=== PATIENT | male | born 1950 ===

== ENCOUNTER → 2019-11-16 15:05 | Outpatient (BNVA) | payer MEDICARE, SELFPAY | PROVIDERS: PCP Internal Medicine; Visit Provider Internal Medicine | DX: I48.20 Chronic atrial fibrillation, unspecified (principal); Z51.81 Encounter for therapeutic drug level monitoring; Z79.01 Long term (current) use of anticoagulants | CPT/HCPCS: 85610; 99211 ==

== ENCOUNTER → 2019-12-14 14:10 | Outpatient (BNVA) | payer MEDICARE, BC, SELFPAY | PROVIDERS: PCP Internal Medicine; Referring Provider Internal Medicine; Visit Provider Internal Medicine | DX: I48.20 Chronic atrial fibrillation, unspecified (principal); Z51.81 Encounter for therapeutic drug level monitoring; Z79.01 Long term (current) use of anticoagulants | CPT/HCPCS: 85610; 99211 ==

== ENCOUNTER → 2020-01-08 08:10 | Outpatient (BNVA) | payer MEDICARE, BC, SELFPAY | PROVIDERS: PCP Internal Medicine; Visit Provider Internal Medicine | DX: I48.20 Chronic atrial fibrillation, unspecified (principal); Z51.81 Encounter for therapeutic drug level monitoring; Z79.01 Long term (current) use of anticoagulants | CPT/HCPCS: 85610; 99211 ==

== ENCOUNTER → 2020-01-29 13:34 | Outpatient (BNVA) | payer MEDICARE, BC, SELFPAY | PROVIDERS: PCP Internal Medicine; Visit Provider Internal Medicine | DX: I48.20 Chronic atrial fibrillation, unspecified (principal); Z51.81 Encounter for therapeutic drug level monitoring; Z79.01 Long term (current) use of anticoagulants | CPT/HCPCS: 85610; 99211 ==

== ENCOUNTER → 2020-01-31 08:06 | Outpatient (BNVA) | payer MEDICARE, BC, SELFPAY | PROVIDERS: PCP Internal Medicine; Visit Provider Internal Medicine | DX: I48.20 Chronic atrial fibrillation, unspecified (principal); Z79.01 Long term (current) use of anticoagulants; Z51.81 Encounter for therapeutic drug level monitoring | CPT/HCPCS: 85610; 99211 ==

== ENCOUNTER → 2020-03-07 08:23 | Outpatient (BNVA) | payer MEDICARE, BC, SELFPAY | PROVIDERS: PCP Internal Medicine; Visit Provider Internal Medicine | DX: I48.20 Chronic atrial fibrillation, unspecified (principal); Z51.81 Encounter for therapeutic drug level monitoring; Z79.01 Long term (current) use of anticoagulants | CPT/HCPCS: 85610; 99211 ==

== ENCOUNTER → 2020-03-21 08:03 | Outpatient (BNVA) | payer MEDICARE, BC, SELFPAY | PROVIDERS: PCP Internal Medicine; Visit Provider Internal Medicine | DX: I48.20 Chronic atrial fibrillation, unspecified (principal); Z51.81 Encounter for therapeutic drug level monitoring; Z79.01 Long term (current) use of anticoagulants | CPT/HCPCS: 85610; 99211 ==

== ENCOUNTER → 2020-04-04 08:07 | Outpatient (BNVA) | payer MEDICARE, BC, SELFPAY | PROVIDERS: PCP Internal Medicine; Visit Provider Internal Medicine | DX: I48.20 Chronic atrial fibrillation, unspecified (principal); I51.81 Takotsubo syndrome; Z79.01 Long term (current) use of anticoagulants | CPT/HCPCS: 85610; 99211 ==

== ENCOUNTER → 2020-04-24 10:50 | Outpatient (BNVA) | payer MEDICARE, BC, SELFPAY | PROVIDERS: PCP Internal Medicine; Visit Provider Internal Medicine | DX: I48.20 Chronic atrial fibrillation, unspecified (principal); Z51.81 Encounter for therapeutic drug level monitoring; Z79.01 Long term (current) use of anticoagulants | CPT/HCPCS: 85610; 99211 ==

== ENCOUNTER → 2020-05-09 13:42 | Outpatient (BNVA) | payer MEDICARE, BC, SELFPAY | PROVIDERS: PCP Internal Medicine; Visit Provider Internal Medicine | DX: I48.20 Chronic atrial fibrillation, unspecified (principal); Z79.01 Long term (current) use of anticoagulants; Z51.81 Encounter for therapeutic drug level monitoring | CPT/HCPCS: 85610; 99211 ==

== ENCOUNTER → 2020-05-20 11:28 | Outpatient (BNVA) | payer MEDICARE, BC, SELFPAY | PROVIDERS: PCP Internal Medicine; Visit Provider Internal Medicine | DX: Z79.01 Long term (current) use of anticoagulants (principal) | CPT/HCPCS: 85610; 99211 ==

== ENCOUNTER → 2020-06-17 13:04 | Outpatient (BNVA) | payer MEDICARE, BC, SELFPAY | PROVIDERS: PCP Internal Medicine; Visit Provider Internal Medicine | DX: I48.20 Chronic atrial fibrillation, unspecified (principal); Z51.81 Encounter for therapeutic drug level monitoring; Z79.01 Long term (current) use of anticoagulants | CPT/HCPCS: 85610; 99211 ==

== ENCOUNTER → 2020-07-02 13:42 | Outpatient (BNVA) | payer MEDICARE, BC, SELFPAY | PROVIDERS: PCP Internal Medicine; Visit Provider Internal Medicine | DX: I48.20 Chronic atrial fibrillation, unspecified (principal); Z51.81 Encounter for therapeutic drug level monitoring; Z79.01 Long term (current) use of anticoagulants | CPT/HCPCS: 85610; 99211 ==

== ENCOUNTER → 2020-07-16 13:02 | Outpatient (BNVA) | payer MEDICARE, BC, SELFPAY | PROVIDERS: PCP Internal Medicine; Visit Provider Internal Medicine | DX: I48.20 Chronic atrial fibrillation, unspecified (principal); Z51.81 Encounter for therapeutic drug level monitoring; Z79.01 Long term (current) use of anticoagulants | CPT/HCPCS: 85610; 99211 ==

== ENCOUNTER → 2020-07-30 07:59 | Outpatient (BNVA) | payer MEDICARE, BC, SELFPAY | PROVIDERS: PCP Internal Medicine; Visit Provider Internal Medicine | DX: I48.0 Paroxysmal atrial fibrillation (principal); Z51.81 Encounter for therapeutic drug level monitoring; Z79.01 Long term (current) use of anticoagulants | CPT/HCPCS: 85610; 99211 ==

== ENCOUNTER → 2020-08-01 08:21 | Outpatient (BNVA) | payer MEDICARE, BC, SELFPAY | PROVIDERS: PCP Internal Medicine; Visit Provider Internal Medicine | DX: I48.20 Chronic atrial fibrillation, unspecified (principal); Z51.81 Encounter for therapeutic drug level monitoring; Z79.01 Long term (current) use of anticoagulants | CPT/HCPCS: 85610; 99211 ==

== ENCOUNTER → 2020-08-15 16:11 | Outpatient (BNVA) | payer MEDICARE, BC, SELFPAY | PROVIDERS: PCP Internal Medicine; Visit Provider Internal Medicine | DX: I48.20 Chronic atrial fibrillation, unspecified (principal) | CPT/HCPCS: Q3014 ==

== ENCOUNTER → 2020-08-25 08:12 | Outpatient (BNVA) | payer MEDICARE, BC, SELFPAY | PROVIDERS: PCP Internal Medicine; Visit Provider Internal Medicine | DX: I48.20 Chronic atrial fibrillation, unspecified (principal); Z51.81 Encounter for therapeutic drug level monitoring; Z79.01 Long term (current) use of anticoagulants | CPT/HCPCS: 85610; 99211 ==

== ENCOUNTER → 2020-09-09 08:00 | Outpatient (BNVA) | payer MEDICARE, BC, SELFPAY | PROVIDERS: PCP Internal Medicine; Visit Provider Internal Medicine | DX: I48.20 Chronic atrial fibrillation, unspecified (principal); Z51.81 Encounter for therapeutic drug level monitoring; Z79.01 Long term (current) use of anticoagulants | CPT/HCPCS: 85610; 99211 ==

== ENCOUNTER → 2020-10-09 08:11 | Outpatient (BNVA) | payer MEDICARE, BC, SELFPAY | PROVIDERS: PCP Internal Medicine; Visit Provider Internal Medicine | DX: I48.20 Chronic atrial fibrillation, unspecified (principal); Z51.81 Encounter for therapeutic drug level monitoring; Z79.01 Long term (current) use of anticoagulants | CPT/HCPCS: 85610; 99211 ==

== ENCOUNTER → 2020-11-06 07:56 | Outpatient (BNVA) | payer MEDICARE, BC, SELFPAY | PROVIDERS: PCP Internal Medicine; Visit Provider Internal Medicine | DX: I48.20 Chronic atrial fibrillation, unspecified (principal); Z51.81 Encounter for therapeutic drug level monitoring; Z79.01 Long term (current) use of anticoagulants | CPT/HCPCS: 85610; 99211 ==

== ENCOUNTER → 2020-11-24 10:25 | Outpatient (BNVA) | payer MEDICARE, BC, SELFPAY | PROVIDERS: PCP Internal Medicine; Visit Provider Internal Medicine | DX: I48.20 Chronic atrial fibrillation, unspecified (principal); Z51.81 Encounter for therapeutic drug level monitoring; Z79.01 Long term (current) use of anticoagulants | CPT/HCPCS: 85610; 99211 ==

== ENCOUNTER → 2020-12-01 09:47 | Outpatient (BNVA) | payer MEDICARE, BC, SELFPAY | PROVIDERS: PCP Internal Medicine; Visit Provider Internal Medicine | DX: I48.20 Chronic atrial fibrillation, unspecified (principal); Z51.81 Encounter for therapeutic drug level monitoring; Z79.01 Long term (current) use of anticoagulants | CPT/HCPCS: 85610; 99211 ==

== ENCOUNTER → 2020-12-12 10:49 | Outpatient (BNVA) | payer MEDICARE, BC, SELFPAY | PROVIDERS: PCP Internal Medicine; Visit Provider Internal Medicine | DX: I48.20 Chronic atrial fibrillation, unspecified (principal); Z51.81 Encounter for therapeutic drug level monitoring; Z79.01 Long term (current) use of anticoagulants | CPT/HCPCS: 85610; 99211 ==

== ENCOUNTER → 2020-12-31 11:29 | Outpatient (BNVA) | payer MEDICARE, BC, SELFPAY | PROVIDERS: PCP Internal Medicine; Visit Provider Internal Medicine | DX: I48.20 Chronic atrial fibrillation, unspecified (principal); Z51.81 Encounter for therapeutic drug level monitoring; Z79.01 Long term (current) use of anticoagulants | CPT/HCPCS: 85610; 99211 ==

== ENCOUNTER → 2021-01-28 10:58 | Outpatient (BNVA) | payer MEDICARE, BC, SELFPAY | PROVIDERS: PCP Internal Medicine; Visit Provider Internal Medicine | DX: I48.20 Chronic atrial fibrillation, unspecified (principal); Z51.81 Encounter for therapeutic drug level monitoring; Z79.01 Long term (current) use of anticoagulants | CPT/HCPCS: 85610; 99211 ==

== ENCOUNTER 2021-03-06 09:34 | Outpatient (REF) | payer MEDICARE, BC, SELFPAY ==
[2021-03-06 09:49] LABS: Binax Internal Control QC Valid; Binax Now Covid-19 Ag Positive (Negative)
== END 2021-03-06 09:35 | disposition home or self-care (01) ==
LOC: HO.LAB 09:34
PROVIDERS: PCP Internal Medicine; Visit Provider Internal Medicine
DX: Z20.822 Contact with and (suspected) exposure to COVID-19 (principal)
CPT/HCPCS: C9803

== ENCOUNTER 2021-03-11 10:07 | Outpatient (REF) | payer MEDICARE, BC, SELFPAY ==
[2021-03-11 10:30] LABS: COVID-19 Test Positive (Negative)
== END 2021-03-11 10:08 | disposition home or self-care (01) ==
LOC: HO.LAB 10:07
PROVIDERS: Visit Provider Internal Medicine
DX: Z20.822 Contact with and (suspected) exposure to COVID-19 (principal)
CPT/HCPCS: 87635; C9803

== ENCOUNTER 2021-03-12 10:03 | Outpatient (REF) | payer MEDICARE, BC, SELFPAY ==
[2021-03-12 10:15] LABS: COVID-19 Test Positive (Negative)
== END 2021-03-12 10:04 | disposition home or self-care (01) ==
LOC: HO.LAB 10:03
PROVIDERS: PCP Internal Medicine; Visit Provider Internal Medicine
DX: Z20.822 Contact with and (suspected) exposure to COVID-19 (principal)
CPT/HCPCS: 87635; C9803

== ENCOUNTER 2021-03-16 07:34 | Outpatient (REF) | payer MEDICARE, BC, SELFPAY ==
[2021-03-16 08:04] LABS: COVID-19 Test Negative (Negative)
== END 2021-03-16 07:35 | disposition home or self-care (01) ==
LOC: HO.LAB 07:34
PROVIDERS: Visit Provider Internal Medicine
DX: Z20.822 Contact with and (suspected) exposure to COVID-19 (principal)
CPT/HCPCS: 87635; C9803

== ENCOUNTER → 2021-03-25 11:30 | Outpatient (BNVA) | payer MEDICARE, BC, SELFPAY | PROVIDERS: PCP Internal Medicine; Visit Provider Internal Medicine | DX: I48.20 Chronic atrial fibrillation, unspecified (principal); Z51.81 Encounter for therapeutic drug level monitoring; Z79.01 Long term (current) use of anticoagulants | CPT/HCPCS: 85610; 99211 ==

== ENCOUNTER 2021-03-26 08:28 | Outpatient (REF) | payer MEDICARE, BC, SELFPAY ==
[2021-03-26 09:49] LABS: Hematocrit 40.4 % (42.0-52.0); Hemoglobin 13.3 g/dl (14.0-18.0); Mean Corpuscular HGB Conc 32.9 g/dl (31.0-36.0); Mean Corpuscular Hemoglobin 31.8 pg (27.0-33.0); Mean Corpuscular Volume 96.7 fL (80.0-98.0); Platelet Count 210 X10*3/uL (160-400); Red Blood Count 4.18 X10*6/uL (4.60-5.80); Red Cell Distribution Width 12.8 % (11.0-16.0); White Blood Count 6.3 X10*3/uL (4.8-10.8)
[2021-03-26 09:53] LABS: INTERNATIONAL NORM RATIO 2.9 (0.9-1.1); Prothrombin Time 33.3 SEC (9.9-13.0)
[2021-03-26 10:13] LABS: Appearance Urine CLEAR; Color Urine YELLOW; Glucose Urine UA NEG (NEG); Leukocyte Esterase Urine NEG (NEG); Nitrite Urine NEG (NEG); PH 5.5 (5.0-8.0); Specific Gravity - Urine >= 1.030 (1.005-1.025); Urine Blood NEG (NEG); Urine Ketones NEG (NEG); Urine Protein NEG (NEG-TRACE)
[2021-03-26 10:16] LABS: Alanine Aminotransferase 11 U/L (0-40); Albumin Level 3.7 g/dL (3.5-5.0); Alkaline Phosphatase 66 U/L (39-117); Anion Gap 11 (12-20); Aspartate Amino Transferase 19 U/L (5-37); Bilirubin Direct 0.3 mg/dL (0.0-0.5); Bilirubin Total 0.6 mg/dL (0.0-1.0); Blood Urea Nitrogen 22 mg/dL (9-16); Calcium 9.2 mg/dL (8.4-10.2); Carbon Dioxide 28 mmol/L (22-29); Chloride 104 mmol/L (96-108); Cholesterol 147 mg/dL; Estimated Glomerular Filt Rate > 60; Glucose Random 94 mg/dL (60-115); HDL Cholesterol 36 mg/dL; LDL Cholesterol Calculated 78 mg/dl; Potassium 4.6 mmol/L (3.3-5.1); Sodium 138 mmol/L (135-145); Total Protein 6.6 g/dL (6.5-8.0); Triglycerides 168 mg/dL
[2021-03-26 10:42] LABS: Thyroid Stimulating Hormone 0.66 uIU/mL (0.32-4.0)
[2021-03-31 12:12] LABS: Vitamin D 25-OH, D2 <4 ng/mL; Vitamin D 25-OH, D3 49 ng/mL; Vitamin D 25-OH, Total 49 ng/mL (30-100)
== END 2021-03-26 08:29 | disposition home or self-care (01) ==
LOC: HO.LAB 08:28
PROVIDERS: PCP Internal Medicine; Visit Provider Internal Medicine
DX: I48.20 Chronic atrial fibrillation, unspecified (principal); I50.9 Heart failure, unspecified
CPT/HCPCS: 36415; 80048; 80061; 80076; 81003; 82306; 84443; 85027; 85610

== ENCOUNTER → 2021-04-22 10:44 | Outpatient (BNVA) | payer MEDICARE, BC, SELFPAY | PROVIDERS: PCP Internal Medicine; Visit Provider Internal Medicine | DX: I48.20 Chronic atrial fibrillation, unspecified (principal); Z79.01 Long term (current) use of anticoagulants; Z51.81 Encounter for therapeutic drug level monitoring | CPT/HCPCS: 85610; 99211 ==

== ENCOUNTER → 2021-05-20 10:53 | Outpatient (BNVA) | payer MEDICARE, BC, SELFPAY | PROVIDERS: PCP Internal Medicine; Visit Provider Internal Medicine | DX: I48.20 Chronic atrial fibrillation, unspecified (principal); Z79.01 Long term (current) use of anticoagulants; Z51.81 Encounter for therapeutic drug level monitoring | CPT/HCPCS: 85610; 99211 ==

== ENCOUNTER → 2021-06-17 10:32 | Outpatient (BNVA) | payer MEDICARE, BC, SELFPAY | PROVIDERS: PCP Internal Medicine; Visit Provider Internal Medicine | DX: I48.20 Chronic atrial fibrillation, unspecified (principal); Z79.01 Long term (current) use of anticoagulants; Z51.81 Encounter for therapeutic drug level monitoring | CPT/HCPCS: 85610; 99211 ==

== ENCOUNTER → 2021-07-15 10:44 | Outpatient (BNVA) | payer MEDICARE, BC, SELFPAY | PROVIDERS: PCP Internal Medicine; Visit Provider Internal Medicine | DX: I48.20 Chronic atrial fibrillation, unspecified (principal); Z79.01 Long term (current) use of anticoagulants; Z51.81 Encounter for therapeutic drug level monitoring | CPT/HCPCS: 85610; 99211 ==

== ENCOUNTER → 2021-09-09 10:38 | Outpatient (BNVA) | payer MEDICARE, BC, SELFPAY | PROVIDERS: PCP Internal Medicine; Visit Provider Internal Medicine | DX: I48.20 Chronic atrial fibrillation, unspecified (principal); Z79.01 Long term (current) use of anticoagulants; Z51.81 Encounter for therapeutic drug level monitoring | CPT/HCPCS: 85610; 99211 ==

== ENCOUNTER → 2021-09-23 11:11 | Outpatient (BNVA) | payer MEDICARE, BC, SELFPAY | PROVIDERS: PCP Internal Medicine; Visit Provider Internal Medicine | DX: I48.20 Chronic atrial fibrillation, unspecified (principal); Z79.01 Long term (current) use of anticoagulants; Z51.81 Encounter for therapeutic drug level monitoring | CPT/HCPCS: 85610; 99211 ==

== ENCOUNTER → 2021-10-08 07:57 | Outpatient (BNVA) | payer MEDICARE, BC, SELFPAY | PROVIDERS: PCP Internal Medicine; Visit Provider Internal Medicine | DX: I48.20 Chronic atrial fibrillation, unspecified (principal); Z79.01 Long term (current) use of anticoagulants; Z51.81 Encounter for therapeutic drug level monitoring | CPT/HCPCS: 85610; 99211 ==

== ENCOUNTER → 2021-11-05 10:38 | Outpatient (BNVA) | payer MEDICARE, BC, SELFPAY | PROVIDERS: PCP Internal Medicine; Visit Provider Internal Medicine | DX: I48.20 Chronic atrial fibrillation, unspecified (principal); Z79.01 Long term (current) use of anticoagulants; Z51.81 Encounter for therapeutic drug level monitoring | CPT/HCPCS: 85610; 99211 ==

== ENCOUNTER → 2021-12-03 10:48 | Outpatient (BNVA) | payer MEDICARE, BC, SELFPAY | PROVIDERS: PCP Internal Medicine; Visit Provider Internal Medicine | DX: I48.20 Chronic atrial fibrillation, unspecified (principal); Z79.01 Long term (current) use of anticoagulants; Z51.81 Encounter for therapeutic drug level monitoring | CPT/HCPCS: 85610; 99211 ==

== ENCOUNTER → 2021-12-10 11:05 | Outpatient (BNVA) | payer MEDICARE, BC, SELFPAY | PROVIDERS: PCP Internal Medicine; Visit Provider Internal Medicine | DX: I48.20 Chronic atrial fibrillation, unspecified (principal); Z79.01 Long term (current) use of anticoagulants; Z51.81 Encounter for therapeutic drug level monitoring | CPT/HCPCS: 85610; 99211 ==

== ENCOUNTER → 2022-01-28 12:57 | Outpatient (BNVA) | payer MEDICARE, BC, SELFPAY | PROVIDERS: PCP Internal Medicine; Visit Provider Internal Medicine | DX: I48.20 Chronic atrial fibrillation, unspecified (principal); Z79.01 Long term (current) use of anticoagulants; Z51.81 Encounter for therapeutic drug level monitoring | CPT/HCPCS: 85610; 99211 ==

== ENCOUNTER → 2022-02-02 11:08 | Outpatient (BNVA) | payer MEDICARE, BC, SELFPAY | PROVIDERS: PCP Internal Medicine; Visit Provider Internal Medicine | DX: I48.20 Chronic atrial fibrillation, unspecified (principal); Z79.01 Long term (current) use of anticoagulants; Z51.81 Encounter for therapeutic drug level monitoring | CPT/HCPCS: 85610; 99211 ==

== ENCOUNTER → 2022-02-10 08:42 | Outpatient (BNVA) | payer MEDICARE, BC, SELFPAY | PROVIDERS: PCP Internal Medicine; Visit Provider Internal Medicine | DX: I48.20 Chronic atrial fibrillation, unspecified (principal); Z79.01 Long term (current) use of anticoagulants; Z51.81 Encounter for therapeutic drug level monitoring | CPT/HCPCS: 85610; 99211 ==

== ENCOUNTER → 2022-03-12 11:11 | Outpatient (BNVA) | payer MEDICARE, BC, SELFPAY | PROVIDERS: PCP Internal Medicine; Visit Provider Internal Medicine | DX: I48.20 Chronic atrial fibrillation, unspecified (principal); Z79.01 Long term (current) use of anticoagulants; Z51.81 Encounter for therapeutic drug level monitoring | CPT/HCPCS: 85610; 99211 ==

== ENCOUNTER → 2022-04-09 08:05 | Outpatient (BNVA) | payer MEDICARE, BC, SELFPAY | PROVIDERS: PCP Internal Medicine; Visit Provider Internal Medicine | DX: I48.20 Chronic atrial fibrillation, unspecified (principal); Z79.01 Long term (current) use of anticoagulants; Z51.81 Encounter for therapeutic drug level monitoring | CPT/HCPCS: 85610; 99211 ==

== ENCOUNTER → 2022-05-14 07:58 | Outpatient (BNVA) | payer MEDICARE, BC, SELFPAY | PROVIDERS: PCP Internal Medicine; Visit Provider Internal Medicine | DX: I48.20 Chronic atrial fibrillation, unspecified (principal); Z79.01 Long term (current) use of anticoagulants; Z51.81 Encounter for therapeutic drug level monitoring | CPT/HCPCS: 85610; 99211 ==

== ENCOUNTER → 2022-06-11 07:57 | Outpatient (BNVA) | payer MEDICARE, BC, SELFPAY | PROVIDERS: PCP Internal Medicine; Visit Provider Internal Medicine | DX: I48.20 Chronic atrial fibrillation, unspecified (principal); Z79.01 Long term (current) use of anticoagulants; Z51.81 Encounter for therapeutic drug level monitoring | CPT/HCPCS: 85610; 99211 ==

== ENCOUNTER → 2022-06-25 08:22 | Outpatient (BNVA) | payer MEDICARE, BC, SELFPAY | PROVIDERS: PCP Internal Medicine; Visit Provider Internal Medicine | DX: I48.20 Chronic atrial fibrillation, unspecified (principal); Z79.01 Long term (current) use of anticoagulants; Z51.81 Encounter for therapeutic drug level monitoring | CPT/HCPCS: 85610; 99211 ==

== ENCOUNTER → 2022-07-30 08:02 | Outpatient (BNVA) | payer MEDICARE, BC, SELFPAY | PROVIDERS: PCP Internal Medicine; Visit Provider Internal Medicine | DX: I48.20 Chronic atrial fibrillation, unspecified (principal); Z79.01 Long term (current) use of anticoagulants; Z51.81 Encounter for therapeutic drug level monitoring | CPT/HCPCS: 85610; 99211 ==

== ENCOUNTER 2022-09-03 08:03 | Outpatient (AMB) | payer MEDICARE, BC, SELFPAY ==
[2022-09-03 08:10] LABS: Prothrombin Time Whole Bld POC 25.3 sec (11.1-13.5); ~PT, ~INR - Anti Coag Clinic 2.1 (0.9-1.1)
--- NOTE | 2022-09-03 08:11 | MHC.OFFVISCO ---
Intake Intake Visit Reasons: Anticoagulation Allergies penicillamine Adverse Reaction (Unknown, Verified 09/03/22 08:06) nausea,vomiting Medication List - Last Reconciled 09/03/22 by Nasima Cade RN carvedilol 50 mg PO BID digoxin 125 mcg PO BEDTIME furosemide 10 mg PO DAILY spironolactone 25 mg PO DAILY warfarin 5 mg See Protocol PO DAILY Nursing Note Amb to ACS feeling well after 3 week vacation with family to [facility] Medications and supplements reviewed No changes in health, diet, medications, or supplements Denies any unusual signs and symptoms of bruising, bleeding Denies any new Chest pain, SOB, or clotting INR: 2.1 in therapeutic range Nutritional guidance given: balance greens and reds in diet, no heavy duty greens today Dose: continue usual dosing; 2.5mg x 1 day and 5mg x 6 days F/U INR: 4 weeks Patient verbalizes understanding of instructions given with accurate read back/ teach back of dosing Anti-Coag Initial Assessment Social Hx Patient Tobacco Use Status: Never used Tobacco alcohol intake: never Coding Level of Care Code Est Patient Level 1 Diagnoses Current use of anticoagulant therapy Z79.01 Time Spent (min) 15 Assessment & Plan Assessment & Plan (1) Current use of anticoagulant therapy: Code(s): Z79.01 - longterm (current) use of 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
== END 2022-09-03 08:16 | disposition home or self-care (01) ==
LOC: HO.ACS 08:03
PROVIDERS: PCP Internal Medicine; Visit Provider Internal Medicine
DX: Z79.01 Long term (current) use of anticoagulants (principal)

== ENCOUNTER → 2022-09-03 08:03 | Outpatient (BNVA) | payer MEDICARE, BC, SELFPAY | PROVIDERS: PCP Internal Medicine; Visit Provider Internal Medicine | DX: I48.20 Chronic atrial fibrillation, unspecified (principal); Z79.01 Long term (current) use of anticoagulants; Z51.81 Encounter for therapeutic drug level monitoring | CPT/HCPCS: 85610; 99211 ==

== ENCOUNTER 2022-09-20 07:49 | Outpatient (REF) | payer MEDICARE, BC, SELFPAY ==
[2022-09-20 08:17] LABS: MANUAL DIFF FLAG NO
[2022-09-20 08:54] LABS: Basophils Percent Auto 0.8 % (0-2); Eosinophils Absolute Auto 0.1 X10*3/uL (0.0-0.4); Eosinophils Percent Auto 1.6 % (0-4); Hematocrit 42.4 % (42.0-52.0); Imm Gran Abs Auto 0.02 X10*3/uL (0.00-0.03); Imm Gran Pct Auto 0.4 % (0.0-0.4); Lymphocytes Absolute Auto 1.4 X10*3/uL (1.2-4.9); Lymphocytes Percent Auto 27.9 % (20-40); Mean Corpuscular Hemoglobin 31.2 pg (27.0-33.0); Mean Corpuscular Volume 94.4 fL (80.0-98.0); Mean Platelet Volume 9.7 fL (9.4-12.4); Monocytes Absolute Auto 0.4 X10*3/uL (0.1-1.2); Monocytes Percent Auto 7.1 % (2-11); Neutrophils Absolute Auto 3.1 x10*3/uL (2.0-8.3); Neutrophils Percent Auto 62.2 % (45-73); Platelet Count 193 X10*3/uL (160-400); Red Blood Count 4.49 X10*6/uL (4.60-5.80); Red Cell Distribution Width 13.5 % (11.0-16.0); White Blood Count 5.1 X10*3/uL (4.8-10.8)
[2022-09-20 10:34] LABS: Anion Gap 10 (12-20); Blood Urea Nitrogen 18 mg/dL (9-16); Calcium 9.3 mg/dL (8.4-10.2); Carbon Dioxide 27 mmol/L (22-29); Chloride 105 mmol/L (96-108); Estimated Glomerular Filt Rate > 60; Ferritin 247 ng/mL (20-250); Glucose Random 105 mg/dL (60-115); Iron 113 mcg/dL (45-160); Percent Iron Saturation 54 % (15-50); Potassium 4.2 mmol/L (3.3-5.1); Sodium 138 mmol/L (135-145); Total Iron Binding Capacity 211 mcg/dL (228-428); Unsaturated Iron Binding 98 ug/dL
[2022-09-20 10:44] LABS: Digoxin 1.2 ng/mL (0.8-2.0)
[2022-09-23 15:19] LABS: NT-proBNP 1296 pg/mL (<125)
== END 2022-09-20 07:50 | disposition home or self-care (01) ==
LOC: HO.LAB 07:49
PROVIDERS: Absent Provider Internal Medicine; PCP Internal Medicine; Visit Provider Nurse Practitioner
DX: I48.19 Other persistent atrial fibrillation (principal); I50.22 Chronic systolic (congestive) heart failure; Z79.899 Other long term (current) drug therapy
CPT/HCPCS: 36415; 80048; 80162; 82728; 83540; 83880; 85025

== ENCOUNTER 2022-09-23 08:45 | Outpatient (AMB) | payer MEDICARE, BC, SELFPAY ==
--- NOTE | 2022-09-23 08:53 | MHC.PC.OV ---
Vital Signs 09/23/22 08:54 Height 6 ft 4 in Weight 203 lb BMI 24.7 BP 120/72 Blood Pressure Location Lt brachial Position Sitting Pulse 70 Pulse Source Pulse Oximeter Pulse Oximetry (%) 98 Oxygen Delivery Method Room Air Intake Visit Reasons: Follow Up Intake Note: Patient is here to follow up on CHF, A-fib. 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: Not Required per policy Accompanied by: Self / Same As Patient Allergies penicillamine Adverse Reaction (Unknown, Verified 09/23/22 09:22) nausea,vomiting Medication List - Last Reconciled 09/23/22 by Eduardo Rutledge MD carvedilol 50 mg PO BID digoxin 125 mcg PO BEDTIME furosemide 10 mg PO DAILY spironolactone 25 mg PO DAILY warfarin 5 mg See Protocol PO DAILY Tobacco use date assessed: 09/23/22 Fall risk assessment: No Falls in past year Last assessed Fall Risk: 09/23/22 Dental Screening Dental Screen Date: 09/23/22 Did you have a dental visit in the last 12 months?: Yes Did you have a dental problem in the last 6 months where you did not have access to dental care?: No Was dental information given to patient?: Patient has dentist HPI Follow Up HPI Details 72-year-old male presents to the office to discuss his chronic medical conditions. Patient has chronic AFib and sees a information services manager in [place]. He is compliant with medications and reports no side effects. Able to function and do all activities of daily living. [facility] Medical History Chronic a-fib Congestive heart failure Surgical History History of permanent cardiac pacemaker placement Family History Mother No problems noted. Father No problems noted. Social History Housing: House Alcohol intake: never Patient Tobacco Use Status: Never used Tobacco e-Cigarette/Vaping Use: Never Used Second Hand Smoke Exposure: No service: No Current occupational status: retired Cognitive needs: No Hearing needs: No Vision needs: Yes (glasses) Questionnaire Thrive Questionnaire Date Thrive assessed: 09/23/22 I am a: Patient What is your living situation today?: I have a steady place to live Within the past 12 months, did the food you bought not last and you didn't have the money to get more?: Never true Within the past 12 months, did you worry whether your food would run out before you got money to buy more?: Never true Do you have trouble paying for medicines?: No Do you have trouble getting transportation to medical appointments?: No Do you have trouble paying your heating and electricity bill?: No Do you have trouble taking care of your child, family member or friend?: No Do you have trouble with day-to-day activities such as bathing, preparing meals, shopping, managing finances, etc.?: No Are you currently unemployed and looking for a job?: No Are you interested in more education?: No Currently or been in a relationship where the following occur: no concerns reported AUDIT C Alcohol Use Questionnaire (AUDIT-C) 1. How often do you have a drink containing alcohol?: Never Total Score: 0 TRISTIN-7 AMB Questionnaire TRISTIN-7 Date TRISTIN - 7 assessed: 09/23/22 Feeling nervous, anxious, or on edge: 0 = Not at all Not being able to stop or control worryin = Not at all Worrying too much about different things: 0 = Not at all Trouble relaxin = Not at all Being so restless that it is hard to sit still: 0 = Not at all Becoming easily annoyed or irritable: 0 = Not at all Feeling afraid as if something awful might happen: 0 = Not at all Total TRISTIN-7 score (0-4 normal; 5-9 mild; 10-14 moderate; 15-21 severe): 0 Source: Developed by Drs. Maninder Coker, Ashley Hernandez, Orlando Costello and colleagues, with an educational nicolette from [employer]. Physical exam (Primary Care) Vital Signs: Last Vital Signs Pulse 70 09/23/22 08:54 BP 120/72 09/23/22 08:54 Pulse Ox 98 09/23/22 08:54 Oxygen Delivery Method Room Air 09/23/22 08:54 BMI result Body Mass Index 24.7 Tobacco/Smoking Status: Tobacco use Status Tobacco use date assessed 09/23/22 09/23/22 08:56 Patient Tobacco Use Status Never used Tobacco 09/23/22 08:56 e-Cigarette/Vaping Use Never Used 09/23/22 08:56 Thrive Assessment: Date of Thrive Assessment Date Thrive assessed 09/23/22 09/23/22 08:56 Currently or been in a relationship where the following occur: no concerns reported Advance Care Planning discussion: Exists, not on file Date of discussion: 09/23/22 Forms completed: Health Care Proxy Time spent: 1-15 minutes, not on file Actual minutes spent: 5 Const General: cooperative, healthy appearing and comfortable HENMT Head: Yes normal to inspection and Yes atraumatic Eyes General: appearance normal, both eyes and all related structures Neck Neck: Yes normal visual inspection and Yes full ROM Chest Chest palpation & inspection: normal inspection of the chest Resp Effort & Inspection: normal respiratory effort Auscultation: clear to auscultation bilaterally Cardio Jugular venous distension: no JVD Palpation: normal PMI Rate: regular rate Heart sounds: S1 normal heart sound present and S2 normal heart sound present GI Palpation (GI): Soft to palpation and No hepatosplenomegaly present Extrem General: Yes normal to inspection and Yes full ROM Assessment and Plan Assessment & Plan (1) Congestive heart failure: Code(s): I50.9 - Heart failure, unspecified Plan: Condition is stable. Blood work reviewed. Digoxin level is in range. (2) Chronic a-fib: Code(s): I48.20 - Chronic atrial fibrillation, unspecified Plan: Patient's heart rate is stable. 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 Patient would like to get a Cologuard test done. The same has been ordered. Coding Level of Care Code Est Pt Level 4 (10060) Diagnoses Congestive heart failure I50.9 Chronic a-fib I48.20 Current use of anticoagulant therapy Z79.01 Additional Codes Vital Signs *Quality* - Advance Care Planning discussion: Exists, not on file ([id number]) Vital Signs *Quality* - Time spent: 1-15 minutes, not on file ([id number])
[2022-09-23 08:54] VITALS: BP 120/72; PULSE 70; O2SAT 98; BMI 24.7
== END 2022-09-23 09:53 | disposition home or self-care (01) ==
PROVIDERS: Visit Provider Internal Medicine
DX: I50.9 Heart failure, unspecified (principal); I48.20 Chronic atrial fibrillation, unspecified; Z79.01 Long term (current) use of anticoagulants; Z00.00 Encounter for general adult medical examination without abnormal findings
CPT/HCPCS: 1123F; 1124F; 99214

== ENCOUNTER 2022-10-01 08:03 | Outpatient (AMB) | payer MEDICARE, SELFPAY ==
--- NOTE | 2022-10-01 08:14 | MHC.OFFVISCO ---
Intake Intake Visit Reasons: Anticoagulation Allergies penicillamine Adverse Reaction (Unknown, Verified 10/01/22 08:05) nausea,vomiting Medication List - Last Reconciled 10/01/22 by Yulissa Cates RN carvedilol 50 mg PO BID digoxin 125 mcg PO BEDTIME furosemide 10 mg PO DAILY spironolactone 25 mg PO DAILY warfarin 5 mg See Protocol PO DAILY Nursing Note INR 1.7? out of therapeutic range Medications and supplements reviewed Patient status: PT WAS ON VACATION IN [place] DIET CHANGES AND WALKING MORE Medications or supplements: NO CHANGES Diet: GOOD APPETITE Denies any signs and symptoms of bleeding or clotting or unusual bruising Bleeding, bruising, clotting discussed Nutritional guidance given: AVOID GREENS X 3 DAYS - EAT FOODS TO HELP RAISE THE INR Dose: 7.5MG TODAY THEN RESUME USUAL DOSE 2.5MG X 1 DAY/ 5MG X 6 DAYS F/U INR Date : 2 WEEKS ?? Patient verbalizing understanding of instructions given. 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
[2022-10-01 08:20] LABS: ~PT, ~INR - Anti Coag Clinic 1.7 (0.9-1.1)
== END 2022-10-01 08:19 | disposition home or self-care (01) ==
LOC: HO.ACS 08:03
PROVIDERS: PCP Internal Medicine; Visit Provider Internal Medicine
DX: Z79.01 Long term (current) use of anticoagulants (principal)

== ENCOUNTER → 2022-10-01 08:03 | Outpatient (BNVA) | payer MEDICARE, BC, SELFPAY | PROVIDERS: PCP Internal Medicine; Visit Provider Internal Medicine | DX: I48.20 Chronic atrial fibrillation, unspecified (principal); Z79.01 Long term (current) use of anticoagulants; Z51.81 Encounter for therapeutic drug level monitoring | CPT/HCPCS: 85610; 99211 ==

== ENCOUNTER 2022-10-15 08:19 | Outpatient (AMB) | payer MEDICARE, SELFPAY ==
[2022-10-15 08:26] LABS: Prothrombin Time Whole Bld POC 23.9 sec (11.1-13.5)
--- NOTE | 2022-10-15 08:28 | MHC.OFFVISCO ---
Intake Intake Visit Reasons: Anticoagulation Allergies penicillamine Adverse Reaction (Unknown, Verified 10/15/22 08:20) nausea,vomiting Medication List - Last Reconciled 10/15/22 by Nasima Cade RN carvedilol 50 mg PO BID digoxin 125 mcg PO BEDTIME furosemide 10 mg PO DAILY spironolactone 25 mg PO DAILY warfarin 5 mg See Protocol PO DAILY Nursing Note Amb to ACS feeling well, prev INR 1.7, sts he has been having a lot of pasta with red sauce, reviewed tomato sauces act as a green Medications and supplements reviewed No changes in health, diet, medications, or supplements Denies any unusual signs and symptoms of bruising, bleeding Denies any new Chest pain, SOB, or clotting INR: 2.0 just in therapeutic range Nutritional guidance given: balance greens and reds in diet, food list given and reviewed Dose: continue usual dosing;2.5mg x 1 day and 5mg x 6 days F/U INR: 4 weeks Patient verbalizes understanding of instructions given with accurate read back/ teach back of dosing Anti-Coag Initial Assessment Social Hx Patient Tobacco Use Status: Never used Tobacco alcohol intake: never Coding Level of Care Code Est Patient Level 1 Diagnoses Current use of anticoagulant therapy Z79.01 Time Spent (min) 15 Assessment & Plan Assessment & Plan (1) Current use of anticoagulant therapy: 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
== END 2022-10-15 09:47 | disposition home or self-care (01) ==
LOC: HO.ACS 08:19
PROVIDERS: PCP Internal Medicine; Visit Provider Internal Medicine
DX: Z79.01 Long term (current) use of anticoagulants (principal)

== ENCOUNTER → 2022-10-15 08:19 | Outpatient (BNVA) | payer MEDICARE, BC, SELFPAY | PROVIDERS: PCP Internal Medicine; Visit Provider Internal Medicine | DX: I48.20 Chronic atrial fibrillation, unspecified (principal); Z79.01 Long term (current) use of anticoagulants; Z51.81 Encounter for therapeutic drug level monitoring | CPT/HCPCS: 85610; 99211 ==

== ENCOUNTER 2022-11-05 08:08 | Outpatient (AMB) | payer MEDICARE, SELFPAY ==
[2022-11-05 08:21] LABS: ~PT, ~INR - Anti Coag Clinic 1.4 (0.9-1.1)
--- NOTE | 2022-11-05 08:27 | MHC.OFFVISCO ---
Intake Intake Visit Reasons: Anticoagulation Allergies penicillamine Adverse Reaction (Unknown, Verified 11/05/22 08:15) nausea,vomiting Medication List - Last Reconciled 11/05/22 by Nasima Cade RN carvedilol 50 mg PO BID digoxin 125 mcg PO BEDTIME furosemide 10 mg PO DAILY spironolactone 25 mg PO DAILY warfarin 5 mg See Protocol PO DAILY Nursing Note Amb to ACS feeling ok wearing facial mask our grandchildren have colds, I feel one coming on Medications and supplements reviewed No changes in health, diet, medications, or supplements Denies any unusual signs and symptoms of bruising, bleeding Denies any new Chest pain, SOB, or clotting INR: 1.4 critical low, denies any missed doses, sts uses a pill box, possibly diet?? Nutritional guidance given: sts he has been having pasta with red sauce (as was last visit) reminded pt that although the spaghetti sauce is red it acts as a green, concentrated cooked tomatoes lower INR vs fresh yurok tomatoes eaten raw raise INR Oh I forgot food list reviewed and given. Stressed importance of balance but for the next 3 days nothing from the green column and have red fruits to help raise such as watermelon, strawberries, cranberries and veggies like sugar beets and carrots Dose: increase dose today to 7.5mg, take usual 5 mg tomorrow, then increase Tuesday to 5mg and plan to keep daily dose of 5mg F/U INR: 1 week as earliest could come in Patient verbalizes understanding of instructions given with accurate read back/ teach back of dosing Call to PCP office Dr Cavanaugh- critical INR 1.4, no missed doses per pt, dosing plan and follow up reported to Shanta GALEANA Anti-Coag Initial Assessment Social Hx Patient Tobacco Use Status: Never used Tobacco alcohol intake: never Coding Level of Care Code Est Patient Level 2 Diagnoses Current use of anticoagulant therapy Z79.01 Time Spent (min) 30 Assessment & Plan Assessment & Plan (1) Current use of anticoagulant therapy: 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
== END 2022-11-05 12:59 | disposition home or self-care (01) ==
LOC: HO.ACS 08:08
PROVIDERS: PCP Internal Medicine; Visit Provider Internal Medicine
DX: Z79.01 Long term (current) use of anticoagulants (principal)

== ENCOUNTER → 2022-11-05 08:08 | Outpatient (BNVA) | payer MEDICARE, BC, SELFPAY | PROVIDERS: PCP Internal Medicine; Visit Provider Internal Medicine | DX: I48.20 Chronic atrial fibrillation, unspecified (principal); Z79.01 Long term (current) use of anticoagulants; Z51.81 Encounter for therapeutic drug level monitoring | CPT/HCPCS: 85610; 99212 ==

== ENCOUNTER 2022-11-12 09:06 | Outpatient (AMB) | payer MEDICARE, SELFPAY ==
--- NOTE | 2022-11-12 09:26 | MHC.OFFVISCO ---
Intake Intake Visit Reasons: Anticoagulation Allergies penicillamine Adverse Reaction (Unknown, Verified 11/12/22 09:10) nausea,vomiting Medication List - Last Reconciled 11/12/22 by Yulissa Cates RN carvedilol 50 mg PO BID digoxin 125 mcg PO BEDTIME furosemide 10 mg PO DAILY spironolactone 25 mg PO DAILY warfarin 5 mg See Protocol PO DAILY Nursing Note INR 1.5 out of therapeutic range Medications and supplements reviewed Patient status: PT EXERCISING MORE AND HAS LOSS WEIGHT INTENTIALY 15 LBS NOW- MAY CONTRIBUTE TO LOW INR, ALSO STATED HE HAS RECOVERED FROM A COLD -LAST WEEK, SIMILAR TO COVID/FLU SYMPTOMS MAY CONTRIBUTE TO LOW INR IF COVID , Medications or supplements: NO CHANGES Diet: GOOD APPETITE Denies any signs and symptoms of bleeding or clotting or unusual bruising Bleeding, bruising, clotting discussed Nutritional guidance given: AVOID GREENS X 3 DAYS, EAT ORANGE AND RED TO HELP RAISE THE INR Dose: 7.5MG X 2 DAYS (FRI SAT) 5MG ALL OTHER DAYS. F/U INR Date : CHECK INR 5 DAYS TO SEE IF DOSE INCREASES RAISES THE INR ?? PT INTRUCTED TO GO TO ER WITH ANY S/SX OF CLOTTING OR STROKE Patient verbalizing understanding of instructions given. 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
== END 2022-11-12 09:37 | disposition home or self-care (01) ==
LOC: HO.ACS 09:06
PROVIDERS: PCP Internal Medicine; Visit Provider Internal Medicine
DX: Z79.01 Long term (current) use of anticoagulants (principal)

== ENCOUNTER → 2022-11-12 09:06 | Outpatient (BNVA) | payer MEDICARE, SELFPAY | PROVIDERS: PCP Internal Medicine; Visit Provider Internal Medicine | DX: I48.20 Chronic atrial fibrillation, unspecified (principal); Z79.01 Long term (current) use of anticoagulants; Z51.81 Encounter for therapeutic drug level monitoring | CPT/HCPCS: 85610; 99211 ==

== ENCOUNTER 2022-11-24 09:22 | Outpatient (AMB) | payer MEDICARE, SELFPAY ==
--- NOTE | 2022-11-24 09:26 | MHC.OFFVISCO ---
Intake Intake Visit Reasons: Anticoagulation Allergies penicillamine Adverse Reaction (Unknown, Verified 11/24/22 09:22) nausea,vomiting Medication List - Last Reconciled 11/24/22 by Zarina Mcguire RN carvedilol 50 mg PO BID digoxin 125 mcg PO BEDTIME furosemide 10 mg PO DAILY spironolactone 25 mg PO DAILY warfarin 5 mg See Protocol PO DAILY Nursing Note INR: 2.1- in therapeutic range Medications and supplements reviewed- no changes No changes in health, diet, medications, or supplements, Denies any signs and symptoms of bleeding or bruising or clotting. Bleeding, bruising, clotting discussed Nutritional guidance given Dose: 5mg x 5, 7.5mg x 2 F/U INR: 2 weeks Patient verbalizes understanding of instructions given Anti-Coag Initial Assessment Social Hx Patient Tobacco Use Status: Never used Tobacco alcohol intake: never Coding Level of Care Code Est Patient Level 1 Diagnoses Current use of anticoagulant therapy Z79.01 Results AMB INR Fingerstick AMB INR Fingerstick 2.1 Last Edit by Zarina Mcguire RN on 11/24/22 09:27 Assessment & Plan Assessment & Plan (1) Current use of anticoagulant therapy: Code(s): Z79.01 - [facility] (current) use of 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
[2022-11-24 09:28] LABS: ~PT, ~INR - Anti Coag Clinic 2.1 (0.9-1.1)
== END 2022-11-24 09:34 | disposition home or self-care (01) ==
LOC: HO.ACS 09:22
PROVIDERS: PCP Internal Medicine; Visit Provider Internal Medicine
DX: Z79.01 Long term (current) use of anticoagulants (principal)

== ENCOUNTER → 2022-11-24 09:22 | Outpatient (BNVA) | payer MEDICARE, SELFPAY | PROVIDERS: PCP Internal Medicine; Visit Provider Internal Medicine | DX: I48.20 Chronic atrial fibrillation, unspecified (principal); Z79.01 Long term (current) use of anticoagulants; Z51.81 Encounter for therapeutic drug level monitoring | CPT/HCPCS: 85610; 99211 ==

== ENCOUNTER 2022-12-08 09:16 | Outpatient (AMB) | payer MEDICARE, SELFPAY ==
[2022-12-08 09:22] LABS: Prothrombin Time Whole Bld POC 31.1 sec (11.1-13.5); ~PT, ~INR - Anti Coag Clinic 2.6 (0.9-1.1)
--- NOTE | 2022-12-08 09:27 | MHC.OFFVISCO ---
Intake Intake Visit Reasons: Anticoagulation Allergies penicillamine Adverse Reaction (Unknown, Verified 12/08/22 09:18) nausea,vomiting Medication List - Last Reconciled 12/08/22 by Angelica Brown RN carvedilol 50 mg PO BID digoxin 125 mcg PO BEDTIME furosemide 10 mg PO DAILY spironolactone 25 mg PO DAILY warfarin 5 mg See Protocol PO DAILY Nursing Note NO CP,SOB,DIET/MED CHANGES,FALLS OR SX OF BLEEDING. CONTINUE PRESENT DOSE AND FOLLOW-UP IN 4 WEEKS. GOOD UNDERSTANDING OF DOSING INSTR. 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
== END 2022-12-08 09:30 | disposition home or self-care (01) ==
LOC: HO.ACS 09:16
PROVIDERS: PCP Internal Medicine; Visit Provider Internal Medicine
DX: Z79.01 Long term (current) use of anticoagulants (principal)

== ENCOUNTER → 2022-12-08 09:16 | Outpatient (BNVA) | payer MEDICARE, BC, SELFPAY | PROVIDERS: PCP Internal Medicine; Visit Provider Internal Medicine | DX: I48.20 Chronic atrial fibrillation, unspecified (principal); Z79.01 Long term (current) use of anticoagulants; Z51.81 Encounter for therapeutic drug level monitoring | CPT/HCPCS: 85610; 99211 ==

== ENCOUNTER 2023-01-07 13:38 | Outpatient (AMB) | payer MEDICARE, SELFPAY ==
[2023-01-07 13:48] LABS: Prothrombin Time Whole Bld POC 30.5 sec (11.1-13.5); ~PT, ~INR - Anti Coag Clinic 2.5 (0.9-1.1)
--- NOTE | 2023-01-07 13:53 | MHC.OFFVISCO ---
Intake Intake Visit Reasons: Anticoagulation Allergies penicillamine Adverse Reaction (Unknown, Verified 12/08/22 09:18) nausea,vomiting Nursing Note INR: 2.5 in therapeutic range Has a rediual cough from a prevoius cold - no edema just a cough Medications and supplements reviewed No changes in health, diet, medications, or supplements, Denies any signs and symptoms of bleeding or bruising or clotting. Bleeding, bruising, clotting discussed Nutritional guidance given Dose: 7.5MG X 2 DAYS/ 5MG X 5DAYS F/U INR: 4 WEEKS patient verbalizes understanding of instructions given Anti-Coag Initial Assessment Social Hx Patient Tobacco Use Status: Never used Tobacco alcohol intake: never Coding Level of Care Code Est Patient Level 1 Diagnoses Current use of anticoagulant therapy Z79.01 Assessment & Plan Assessment & Plan (1) Current use of anticoagulant therapy: Code(s): Z79.01 - retirement (current) use of 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
== END 2023-01-07 13:55 | disposition home or self-care (01) ==
LOC: HO.ACS 13:38
PROVIDERS: PCP Internal Medicine; Visit Provider Internal Medicine
DX: Z79.01 Long term (current) use of anticoagulants (principal)

== ENCOUNTER → 2023-01-07 13:38 | Outpatient (BNVA) | payer MEDICARE, BC, SELFPAY | PROVIDERS: PCP Internal Medicine; Visit Provider Internal Medicine | DX: I48.20 Chronic atrial fibrillation, unspecified (principal); Z79.01 Long term (current) use of anticoagulants; Z51.81 Encounter for therapeutic drug level monitoring | CPT/HCPCS: 85610; 99211 ==

== ENCOUNTER 2023-02-04 14:32 | Outpatient (AMB) | payer MEDICARE, SELFPAY ==
[2023-02-04 14:41] LABS: Prothrombin Time Whole Bld POC 24.6 sec (11.1-13.5)
--- NOTE | 2023-02-04 14:49 | MHC.OFFVISCO ---
Intake Intake Visit Reasons: Anticoagulation Allergies penicillamine Adverse Reaction (Unknown, Verified 02/04/23 14:36) nausea,vomiting Medication List - Last Reconciled 02/04/23 by Angelica Brown RN carvedilol 50 mg PO BID digoxin 125 mcg PO BEDTIME furosemide 10 mg PO DAILY spironolactone 25 mg PO DAILY warfarin 5 mg See Protocol PO DAILY Nursing Note NO CP,SOB,DIET/MED CHANGES,FALLS OR SX OF BLEEDING. CONTINUE PRESENT DOSE AND FOLLOW0-UP IN 4 WEEKS. GOOD UNDERSTANDING OF DOSING INSTR. Anti-Coag Initial Assessment Social Hx Patient Tobacco Use Status: Never used Tobacco alcohol intake: never Coding Level of Care Code Est Patient Level 1 Diagnoses Current use of anticoagulant therapy Z79.01 Assessment & Plan Assessment & Plan (1) Current use of anticoagulant therapy: Code(s): Z79.01 - correction (current) use of 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
== END 2023-02-04 14:51 | disposition home or self-care (01) ==
LOC: HO.ACS 14:32
PROVIDERS: PCP Internal Medicine; Visit Provider Internal Medicine
DX: Z79.01 Long term (current) use of anticoagulants (principal)

== ENCOUNTER → 2023-02-04 14:32 | Outpatient (BNVA) | payer MEDICARE, BC, SELFPAY | PROVIDERS: PCP Internal Medicine; Visit Provider Internal Medicine | DX: I48.20 Chronic atrial fibrillation, unspecified (principal); Z51.81 Encounter for therapeutic drug level monitoring; Z79.01 Long term (current) use of anticoagulants | CPT/HCPCS: 85610; 99211 ==

== ENCOUNTER 2023-03-10 15:08 | Outpatient (AMB) | payer MEDICARE, BC, SELFPAY ==
--- NOTE | 2023-03-10 15:28 | A.OFFVIS_ITS ---
Intake Vital Signs 03/10/23 15:31 Height 6 ft 4 in Weight 201 lb 8 oz BMI 24.5 BP 110/66 Blood Pressure Location Rt brachial Position Sitting Pulse 71 Pulse Source Pulse Oximeter Pulse Oximetry (%) 98 Oxygen Delivery Method Room Air Intake Visit Reasons: AWV Intake Note: Patient is here for an Annual Wellness Visit. 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 [facility] Medical History Congestive heart failure Chronic a-fib Surgical History History of permanent cardiac pacemaker placement Family History Mother No problems noted. Father No problems noted. Social History Housing: House Alcohol intake: never Patient Tobacco Use Status: Never used Tobacco e-Cigarette/Vaping Use: Never Used Second Hand Smoke Exposure: No service: No Current occupational status: retired Cognitive needs: No Hearing needs: No Vision needs: Yes (glasses) Questionnaire Medicare Wellness Checkup [age] What gender do you identify with?: male During the past 4 weeks, how much have you been bothered by emotional problems such as feeling anxious, depressed, irritable, sad or downhearted, and blue?: not at all During the past 4 weeks, has your physical & emotional health limited your so cial activities with family, friends, neighbors, or groups?: not at all During the past 4 weeks, how much bodily pain have you generally had?: no pain During the past 4 weeks, was someone available to help you if you needed & wanted help?: yes, as much as I wanted During the past 4 weeks, what was the hardest physical activity you could do for at least 2 minutes?: moderate Can you get to places out of walking distance without help? (For eg., can you travel alone on buses, taxis or drive your car?): Yes Can you go shopping for groceries or clothes without someone's help?: Yes Can you prepare your own meals?: Yes Can you do your housework without help?: Yes Because of any health problems, do you need the help of another person with your personal care needs such as eating, bathing, dressing or getting around the house?: No Can you handle your own money without help?: Yes During the past 4 weeks, how would you rate your health in general?: very good During the past 4 weeks how have things been going for you?: very well; could hardly better Are you having difficulties driving your car?: no Do you always fasten your seat belt when you are in a car?: yes, usually During past 4 weeks, have you been bothered by the following: never: Falling or dizzy when standing up, Sexual problems?, Trouble eating well?, Teeth or denture problems?, Problems using the telephone? and Tiredness or fatigue? Have you fallen 2 or more times in the past year?: No Are you afraid of falling?: No Are you a smoker?: no During the past 4 weeks, how many drinks of wine, beer, or other alcoholic beverages did you have?: no alcohol at all Do you exercise for about 20 minutes 3 or more times a week?: yes, all the time Have you been given information to help with the following?: no: Hazards in your house that might hurt you? and no: Keeping track of your medications? How often do you have trouble taking medicines the way you have been told to take them?: I always take medicine as prescribed How confident are you that you can control & manage most of your health problems?: very confident What is your race?: White Mini Mental State Exam (MMSE) Orientation What is the (year) (season) (date) (day) (month)?: year, season, date, day and month Where are we (state) (county) (town or city) (hospital) (floor)?: state and hospital/clinic Attention & Calculation (CHOOSE ONE) Ask pt to begin with 100 & count backward by 7. Stop after 5 repeats. If pt cannot ask them to spell the word WORLD backward.: 93, 86 and 79 Language Show patient a wristwatch & ask what it is. Repeat for pencil.: watch and pencil Ask the patient to repeat the phrase 'No ifs, ands, or buts' after you.: correct Score Score: 13 Activity of Daily Living Bathing - sponge bath, tub bath or shower: receives no assistance (gets in/out by self, if usual bathing means Dressing - getting clothes from closets & drawers, including inner/outer garments & fasteners.: gets clothes & gets completely dressed without help Toileting - going to the 'toilet room' for urine/bowel elimination & cleaning self/arranging clothes: goes to toilet room, cleans self, arranges clothes without help Transfer: moves in & out of bed and chair without help (may use support object) Continence: controls urination/bowel movements completely by self Feeding: feeds self without help Total Score: 0 Information obtained from: patient Using telephone: independent Traveling: independent Shopping: independent Preparing meals: independent Housework: independent Taking medicine: independent Managing money: independent PHQ-9 Over the last 2 weeks, how often have you been bothered by any of the following problems? 1. Little interest or pleasure in doing things: not at all 2. Feeling down, depressed, or hopeless: not at all 3. Trouble falling or staying asleep, or sleeping too much: not at all 4. Feeling tired or having little energy: not at all 5. Poor appetite or overeating: not at all 6. Feeling bad about yourself - or that you are a failure or have let yourself or your family down: not at all 7. Trouble concentrating on things, such as reading the newspaper or watching television: not at all 8. Moving or speaking so slowly that other people could have noticed. Or the opposite - being so fidgety or restless that you have been moving around a lot more than usual: not at all 9. Thoughts that you would be better off or of hurting yourself in some way: not at all Total score: 0 Depression Screening Interpretation: Negative Depression Screening Done: Yes Source: Developed by Ashley Best.W. David, Orlando Costello and colleagues, with an educational nicolette from [employer]. Thrive Questionnaire Date Thrive assessed: 03/10/23 I am a: Patient What is your living situation today?: I have a steady place to live Within the past 12 months, did the food you bought not last and you didn't have the money to get more?: Never true Within the past 12 months, did you worry whether your food would run out before you got money to buy more?: Never true Do you have trouble paying for medicines?: No Do you have trouble getting transportation to medical appointments?: No Do you have trouble paying your heating and electricity bill?: No Do you have trouble taking care of your child, family member or friend?: No Do you have trouble with day-to-day activities such as bathing, preparing meals, shopping, managing finances, etc.?: No Are you currently unemployed and looking for a job?: No Are you interested in more education?: No THRIVE Score: 0 TRISTIN-7 AMB Questionnaire TRISTIN-7 Date TRISTIN - 7 assessed: 03/10/23 Feeling nervous, anxious, or on edge: 0 = Not at all Not being able to stop or control worryin = Not at all Worrying too much about different things: 0 = Not at all Trouble relaxin = Not at all Being so restless that it is hard to sit still: 0 = Not at all Becoming easily annoyed or irritable: 0 = Not at all Feeling afraid as if something awful might happen: 0 = Not at all Total TRISTIN-7 score (0-4 normal; 5-9 mild; 10-14 moderate; 15-21 severe): 0 Source: Developed by Drs. Maninder Coker, Ashley Hernandez, Orlando Costello and colleagues, with an educational nicolette from [employer]. AUDIT C Alcohol Use Questionnaire (AUDIT-C) 1. How often do you have a drink containing alcohol?: Never Total Score: 0 Physical Exam Vital Signs: Last Vital Signs Pulse 71 03/10/23 15:31 BP 110/66 03/10/23 15:31 Pulse Ox 98 03/10/23 15:31 Oxygen Delivery Method Room Air 03/10/23 15:31 BMI result Body Mass Index 24.5 Balance: Normal Romberg: Negative Tandem Walk: Able to Walk and Turn: Able to Rise from sit to stand: able to Hearing Whisper test: Pass Assessment & Plan Assessment & Plan (1) Annual physical exam: Code(s): Z00.00 - Encounter for general adult medical examination without abnormal findings Plan: Patient requested a dermatology referral. Same will be made. Fasting chol levels to be checked Medications: Refilled warfarin 5 mg See Protocol PO DAILY 90 tabs 1RF Quality Reporting (2019) Depression/Bipolar (159/160/161/177) PHQ-9: Total score: 0 Coding Level of Care Code Medicare First (G0438) Diagnoses Annual physical exam Z00.00
[2023-03-10 15:31] VITALS: BP 110/66; PULSE 71; O2SAT 98; BMI 24.5
== END 2023-03-10 16:03 | disposition home or self-care (01) ==
PROVIDERS: PCP Internal Medicine; Visit Provider Internal Medicine
DX: Z00.00 Encounter for general adult medical examination without abnormal findings (principal); I48.20 Chronic atrial fibrillation, unspecified; I50.9 Heart failure, unspecified
CPT/HCPCS: G0438; G0439

== ENCOUNTER 2023-03-11 14:54 | Outpatient (AMB) | payer BC, MEDICARE, SELFPAY ==
[2023-03-11 15:16] LABS: ~PT, ~INR - Anti Coag Clinic 1.9 (0.9-1.1)
--- NOTE | 2023-03-11 15:16 | MHC.OFFVISCO ---
Intake Intake Visit Reasons: Anticoagulation Allergies penicillamine Adverse Reaction (Unknown, Verified 03/11/23 15:04) nausea,vomiting Medication List - Last Reconciled 03/11/23 by Nasima Nava RN carvedilol 50 mg PO BID digoxin 125 mcg PO BEDTIME warfarin 5 mg See Protocol PO DAILY Nursing Note INR: 1.9 Close to therapeutic range Pt states has increased his exercise since home from vacation. Medications and supplements reviewed No changes in health, diet, medications, or supplements, Denies any signs and symptoms of bleeding or bruising or clotting. Bleeding, bruising, clotting discussed Nutritional guidance given Dose: continue same dosing but increase food to help raise INR. Review food list. F/U INR: 2 weeks. 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
== END 2023-03-11 15:25 | disposition home or self-care (01) ==
LOC: HO.ACS 14:54
PROVIDERS: PCP Internal Medicine; Visit Provider Internal Medicine
DX: Z79.01 Long term (current) use of anticoagulants (principal)

== ENCOUNTER → 2023-03-11 14:54 | Outpatient (BNVA) | payer MEDICARE, BC, SELFPAY | PROVIDERS: PCP Internal Medicine; Visit Provider Internal Medicine | DX: I48.20 Chronic atrial fibrillation, unspecified (principal); Z51.81 Encounter for therapeutic drug level monitoring; Z79.01 Long term (current) use of anticoagulants | CPT/HCPCS: 85610; 99211 ==

== ENCOUNTER 2023-03-15 08:53 | Outpatient (REF) | payer MEDICARE, BC, SELFPAY ==
[2023-03-15 10:33] LABS: Hematocrit 41.8 % (42.0-52.0); Hemoglobin 14.1 g/dl (14.0-18.0); Mean Corpuscular HGB Conc 33.7 g/dl (31.0-36.0); Mean Corpuscular Hemoglobin 31.5 pg (27.0-33.0); Mean Corpuscular Volume 93.5 fL (80.0-98.0); Mean Platelet Volume 9.8 fL (9.4-12.4); Platelet Count 208 X10*3/uL (160-400); Red Blood Count 4.47 X10*6/uL (4.60-5.80); Red Cell Distribution Width 13.2 % (11.0-16.0); White Blood Count 4.5 X10*3/uL (4.8-10.8)
[2023-03-15 10:59] LABS: Appearance Urine Clear; Color Urine Yellow; Glucose Urine UA Negative (Negative); Leukocyte Esterase Urine Negative (Negative); Nitrite Urine Negative (Negative); PH 6.5 (5.0-9.0); Urine Blood Negative (Negative); Urine Ketones Negative (Negative); Urine Protein Negative (Neg-Trace)
[2023-03-15 11:32] LABS: Alanine Aminotransferase 16 U/L (0-40); Albumin Level 3.8 g/dL (3.5-5.0); Alkaline Phosphatase 75 U/L (39-117); Anion Gap 10 (12-20); Aspartate Amino Transferase 20 U/L (5-37); Bilirubin Direct 0.3 mg/dL (0.0-0.5); Bilirubin Total 0.8 mg/dL (0.0-1.0); Blood Urea Nitrogen 19 mg/dL (9-16); Calcium 8.9 mg/dL (8.4-10.2); Carbon Dioxide 27 mmol/L (22-29); Chloride 105 mmol/L (96-108); Cholesterol 165 mg/dL (<200); Estimated Glomerular Filt Rate > 60; Glucose Random 106 mg/dL (60-115); HDL Cholesterol 42 mg/dL (>40); LDL Cholesterol Calculated 109 mg/dL (<100); Potassium 4.3 mmol/L (3.3-5.1); Sodium 138 mmol/L (135-145); Total Protein 6.9 g/dL (6.5-8.0); Triglycerides 73 mg/dL (<150)
[2023-03-15 11:49] LABS: Thyroid Stimulating Hormone 1.02 uIU/mL (0.32-4.0)
== END 2023-03-15 08:54 | disposition home or self-care (01) ==
LOC: HO.LAB 08:53
PROVIDERS: PCP Internal Medicine; Visit Provider Internal Medicine
DX: I50.9 Heart failure, unspecified (principal); I48.20 Chronic atrial fibrillation, unspecified
CPT/HCPCS: 36415; 80048; 80061; 80076; 81003; 84443; 85027

== ENCOUNTER 2023-03-25 07:59 | Outpatient (AMB) | payer BC, MEDICARE, SELFPAY ==
[2023-03-25 08:08] LABS: Prothrombin Time Whole Bld POC 20.9 sec (11.1-13.5); ~PT, ~INR - Anti Coag Clinic 1.7 (0.9-1.1)
--- NOTE | 2023-03-25 08:14 | MHC.OFFVISCO ---
Intake Intake Visit Reasons: Anticoagulation Allergies penicillamine Adverse Reaction (Unknown, Verified 03/25/23 08:03) nausea,vomiting Medication List - Last Reconciled 03/25/23 by Yulissa Cates RN carvedilol 50 mg PO BID digoxin 125 mcg PO BEDTIME warfarin 5 mg See Protocol PO DAILY Nursing Note INR: 1.7 out of therapeutic range Medications and supplements reviewed Pt states no changes in health, diet, medications, or supplements, perhaps exercising more Denies any signs and symptoms of bleeding or bruising or clotting. Bleeding, bruising, clotting discussed Nutritional guidance given - avoid greens 2 more days Dose: increase to 7.5mg x 3 days/ 5mg x 4 days F/U INR: []Patient verbalizes understanding of instructions given Anti-Coag Initial Assessment Social Hx Patient Tobacco Use Status: Never used Tobacco alcohol intake: never Coding Level of Care Code Est Patient Level 1 Diagnoses Current use of anticoagulant therapy Z79.01 Results AMB INR Fingerstick AMB INR Fingerstick 1.7 Last Edit by Yulissa Cates RN on 03/25/23 08:10 manual entry Assessment & Plan Assessment & Plan (1) Current use of anticoagulant therapy: 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
== END 2023-03-25 08:16 | disposition home or self-care (01) ==
LOC: HO.ACS 07:59
PROVIDERS: PCP Internal Medicine; Visit Provider Internal Medicine
DX: Z79.01 Long term (current) use of anticoagulants (principal)

== ENCOUNTER → 2023-03-25 07:59 | Outpatient (BNVA) | payer MEDICARE, BC, SELFPAY | PROVIDERS: PCP Internal Medicine; Visit Provider Internal Medicine | DX: I48.20 Chronic atrial fibrillation, unspecified (principal); Z51.81 Encounter for therapeutic drug level monitoring; Z79.01 Long term (current) use of anticoagulants | CPT/HCPCS: 85610; 99211 ==

== ENCOUNTER 2023-04-04 08:12 | Outpatient (AMB) | payer MEDICARE, BC, SELFPAY ==
[2023-04-04 08:18] LABS: Prothrombin Time Whole Bld POC 44.7 sec (11.1-13.5); ~PT, ~INR - Anti Coag Clinic 3.7 (0.9-1.1)
--- NOTE | 2023-04-04 08:28 | MHC.OFFVISCO ---
Intake Intake Visit Reasons: Anticoagulation Allergies penicillamine Adverse Reaction (Unknown, Verified 04/04/23 08:12) nausea,vomiting Medication List - Last Reconciled 04/04/23 by Nasima Nava RN carvedilol 50 mg PO BID digoxin 125 mcg PO BEDTIME warfarin 5 mg See Protocol PO DAILY Nursing Note INR 3.7?? out of therapeutic range OF 2-3 Pt stateshe had increased his red foods significantly because he was low, 1.9 and 1.7 the past 2 weeks. Question low D/T increased exeercise. Medications and supplements reviewed Patient status: feels well Medications or supplements or diet: no changes Denies any signs and symptoms of bleeding or clotting or unusual bruising Bleeding, bruising, clotting discussed Nutritional guidance given: Greens only today and tomorrow, no reds. then balance greens and reds Dose: continue same of 7.5mg X3days and 5mg X4days F/U INR Date : 10 days?? Patient verbalizing understanding of instructions given. 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
== END 2023-04-04 08:33 | disposition home or self-care (01) ==
LOC: HO.ACS 08:12
PROVIDERS: PCP Internal Medicine; Visit Provider Internal Medicine
DX: Z79.01 Long term (current) use of anticoagulants (principal)

== ENCOUNTER → 2023-04-04 08:12 | Outpatient (BNVA) | payer MEDICARE, BC, SELFPAY | PROVIDERS: PCP Internal Medicine; Visit Provider Internal Medicine | DX: I48.20 Chronic atrial fibrillation, unspecified (principal); Z79.01 Long term (current) use of anticoagulants; Z51.81 Encounter for therapeutic drug level monitoring | CPT/HCPCS: 85610; 99211 ==

== ENCOUNTER 2023-04-15 08:15 | Outpatient (AMB) | payer MEDICARE, BC, SELFPAY ==
--- NOTE | 2023-04-15 08:34 | MHC.OFFVISCO ---
Intake Intake Visit Reasons: Anticoagulation Allergies penicillamine Adverse Reaction (Unknown, Verified 04/15/23 08:16) nausea,vomiting Medication List - Last Reconciled 04/15/23 by Yulissa Cates RN carvedilol 50 mg PO BID digoxin 125 mcg PO BEDTIME warfarin 5 mg See Protocol PO DAILY Nursing Note INR: 4.7 out of therapeutic range Medications and supplements reviewed- no changes labile INR challenge to determine cause, he was walking more, eating healthier and a little less, he stated today his has been ill for about 3 weeks with a cough, perhaps he was fighting the virus or had it with out real symptoms - some viruses can lower the INR Denies any signs and symptoms of bleeding or bruising or clotting. Bleeding, bruising, clotting discussed Nutritional guidance given- review food list weekly, resume weekly greens , eat a mix of fruits and vegetables Dose: hold today's dose then decrease back to usual dose 7.5mg x 2 days/ 5mg x 5 days F/U INR:1 week risk of bleeding explained to pt Patient verbalizes understanding of instructions given Anti-Coag Initial Assessment Social Hx Patient Tobacco Use Status: Never used Tobacco alcohol intake: never Coding Level of Care Code Est Patient Level 1 Diagnoses Current use of anticoagulant therapy Z79.01 Results AMB INR Fingerstick AMB INR Fingerstick 4.7 Last Edit by Yulissa Cates RN on 04/15/23 08:24 manual entry Assessment & Plan Assessment & Plan (1) Current use of anticoagulant therapy: 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
[2023-04-15 11:14] LABS: Prothrombin Time Whole Bld POC 56.8 sec (11.1-13.5); ~PT, ~INR - Anti Coag Clinic 4.7 (0.9-1.1)
== END 2023-04-15 08:38 | disposition home or self-care (01) ==
LOC: HO.ACS 08:15
PROVIDERS: PCP Internal Medicine; Visit Provider Internal Medicine
DX: Z79.01 Long term (current) use of anticoagulants (principal)

== ENCOUNTER → 2023-04-15 08:15 | Outpatient (BNVA) | payer MEDICARE, BC, SELFPAY | PROVIDERS: PCP Internal Medicine; Visit Provider Internal Medicine | DX: I48.20 Chronic atrial fibrillation, unspecified (principal); Z79.01 Long term (current) use of anticoagulants; Z51.81 Encounter for therapeutic drug level monitoring | CPT/HCPCS: 85610; 99211 ==

== ENCOUNTER 2023-04-22 08:18 | Outpatient (AMB) | payer MEDICARE, BC, SELFPAY ==
--- NOTE | 2023-04-22 08:29 | MHC.OFFVISCO ---
Intake Intake Visit Reasons: Anticoagulation Allergies penicillamine Adverse Reaction (Unknown, Verified 04/22/23 08:25) nausea,vomiting Medication List - Last Reconciled 04/22/23 by Zarina Mcguire RN carvedilol 50 mg PO BID digoxin 125 mcg PO BEDTIME warfarin 5 mg See Protocol PO DAILY Nursing Note INR 3.5-?? out of therapeutic range of 2-3 Medications and supplements reviewed Patient status: no c.o Medications or supplements: no changes Diet: same Denies any signs and symptoms of bleeding or clotting or unusual bruising Bleeding, bruising, clotting discussed Nutritional guidance given: eat dark greens to lower Dose: take 2.5mg today then cont 7.5mg x 2, 5mg x 5 F/U INR Date : 10 days Patient verbalizing understanding of instructions given. 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
[2023-04-22 08:30] LABS: Prothrombin Time Whole Bld POC 42.1 sec (11.1-13.5); ~PT, ~INR - Anti Coag Clinic 3.5 (0.9-1.1)
== END 2023-04-22 08:34 | disposition home or self-care (01) ==
LOC: HO.ACS 08:18
PROVIDERS: PCP Internal Medicine; Visit Provider Internal Medicine
DX: Z79.01 Long term (current) use of anticoagulants (principal)

== ENCOUNTER → 2023-04-22 08:18 | Outpatient (BNVA) | payer MEDICARE, BC, SELFPAY | PROVIDERS: PCP Internal Medicine; Visit Provider Internal Medicine | DX: I48.20 Chronic atrial fibrillation, unspecified (principal); Z79.01 Long term (current) use of anticoagulants; Z51.81 Encounter for therapeutic drug level monitoring | CPT/HCPCS: 85610; 99211 ==

== ENCOUNTER 2023-05-02 08:32 | Outpatient (AMB) | payer MEDICARE, BC, SELFPAY ==
[2023-05-02 08:59] LABS: Prothrombin Time Whole Bld POC 49.6 sec (11.1-13.5); ~PT, ~INR - Anti Coag Clinic 4.1 (0.9-1.1)
--- NOTE | 2023-05-02 09:06 | MHC.OFFVISCO ---
Intake Intake Visit Reasons: Anticoagulation Allergies penicillamine Adverse Reaction (Unknown, Verified 05/02/23 08:53) nausea,vomiting Medication List - Last Reconciled 05/02/23 by Yulissa Cates RN carvedilol 50 mg PO BID digoxin 125 mcg PO BEDTIME warfarin 5 mg See Protocol PO DAILY Nursing Note INR 4.1 out of therapeutic range Medications and supplements reviewed- states no changes Patient status: INR values have been labile, currently has a cold - sinus with congestion and cough Medications or supplements:no changes Diet: states appetite is good , no changes Denies any signs and symptoms of bleeding or clotting or unusual bruising Bleeding, bruising, clotting discussed Nutritional guidance given: review food list weekly Dose: hold today's dose then decrease weekly dose next week 5mg x 6 days/ 7.5mg x 1 day F/U INR Date : 10 days ?? Patient verbalizing understanding of instructions given. will notify PCP of labile INRs to assess patient and other labs Anti-Coag Initial Assessment Social Hx Patient Tobacco Use Status: Never used Tobacco alcohol intake: never Questionnaires HAS-BLED Does the patient had uncontrolled Hypertension?: No Does the patient have renal disease?: No Does the patient have liver disease?: No Does the patient have a history of stroke?: No Has the patient had major bleeding or predisposition to bleeding?: No Does the patient have labile INRs?: Yes Is the patient over 65 years of age?: Yes Is the patient on medications that gives them a predisposition to bleeding?: Yes Does the patient use alcohol?: No HAS-BLED Score: 3 CHADSVASC Age: 75 or over Gender: Male Does the patient have a history of CHF?: Yes Does the patient have a history of Hypertension?: Yes Does the patient have a history of Stroke/TIA/Thromboembolism?: No Does the patient have a history of Vascular Disease (prior VA, PAD or aortic plaque)?: Yes Does the patient have a history of Diabetes?: No CHADS VACS Score: 5 Jamey Prediction Score Rsk VTE Active Cancer: No Previous VTE, excluding superficial vein thrombosis: No Reduced mobility: No Already known Thrombophilic Condition: No With-in last month Trauma and/or Surgery: No Elderly 70 year or older: Yes Heart and/or Respiratory Failure: Yes Acute Myocardial infarction and/or Ischemic Stroke: Yes Acute Infection and/or Rheumatologic Disorder: No Obesity (BMI 30 or greater): No Ongoing Hormonal Treatment: No Score: 3 Jamey Score less than 4; Low Risk of VTE Jamey Score 4 or greater; High Risk of VTE Coding Level of Care Code Est Patient Level 1 Diagnoses Current use of anticoagulant therapy Z79.01 Assessment & Plan Assessment & Plan (1) Current use of anticoagulant therapy: 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
== END 2023-05-02 09:15 | disposition home or self-care (01) ==
LOC: HO.ACS 08:32
PROVIDERS: PCP Internal Medicine; Visit Provider Internal Medicine
DX: Z79.01 Long term (current) use of anticoagulants (principal)

== ENCOUNTER → 2023-05-02 08:32 | Outpatient (BNVA) | payer MEDICARE, BC, SELFPAY | PROVIDERS: PCP Internal Medicine; Visit Provider Internal Medicine | DX: I48.20 Chronic atrial fibrillation, unspecified (principal); Z79.01 Long term (current) use of anticoagulants; Z51.81 Encounter for therapeutic drug level monitoring | CPT/HCPCS: 85610; 99211 ==

== ENCOUNTER 2023-05-13 08:19 | Outpatient (AMB) | payer MEDICARE, BC, SELFPAY ==
--- NOTE | 2023-05-13 08:26 | MHC.OFFVISCO ---
Intake Intake Visit Reasons: Anticoagulation Allergies penicillamine Adverse Reaction (Unknown, Verified 05/13/23 08:21) nausea,vomiting Medication List - Last Reconciled 05/13/23 by Zarina Mcguire RN carvedilol 50 mg PO BID digoxin 125 mcg PO BEDTIME warfarin 5 mg See Protocol PO DAILY Nursing Note INR 3.1-?? out of therapeutic range of 2-3 Medications and supplements reviewed Patient status: no c.o Medications or supplements: no changes Diet: same Denies any signs and symptoms of bleeding or clotting or unusual bruising Bleeding, bruising, clotting discussed Nutritional guidance given: eat greens today, increase greens in weekly diet Dose: 5mg x 6, 7.5mg x 1 F/U INR Date : 2 weeks?? Patient verbalizing understanding of instructions given. 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
[2023-05-13 08:27] LABS: Prothrombin Time Whole Bld POC 37.7 sec (11.1-13.5); ~PT, ~INR - Anti Coag Clinic 3.1 (0.9-1.1)
== END 2023-05-13 08:31 | disposition home or self-care (01) ==
LOC: HO.ACS 08:19
PROVIDERS: PCP Internal Medicine; Visit Provider Internal Medicine
DX: Z79.01 Long term (current) use of anticoagulants (principal)

== ENCOUNTER → 2023-05-13 08:19 | Outpatient (BNVA) | payer MEDICARE, BC, SELFPAY | PROVIDERS: PCP Internal Medicine; Visit Provider Internal Medicine | DX: I48.20 Chronic atrial fibrillation, unspecified (principal); Z79.01 Long term (current) use of anticoagulants; Z51.81 Encounter for therapeutic drug level monitoring | CPT/HCPCS: 85610; 99211 ==

== ENCOUNTER 2023-05-27 08:16 | Outpatient (AMB) | payer MEDICARE, BC, SELFPAY ==
[2023-05-27 08:33] LABS: Prothrombin Time Whole Bld POC 38.1 sec (11.1-13.5); ~PT, ~INR - Anti Coag Clinic 3.2 (0.9-1.1)
--- NOTE | 2023-05-27 08:35 | MHC.OFFVISCO ---
Intake Intake Visit Reasons: Anticoagulation Allergies penicillamine Adverse Reaction (Unknown, Verified 05/27/23 08:27) nausea,vomiting Medication List - Last Reconciled 05/27/23 by Nasima Cade, RN carvedilol 50 mg PO BID digoxin 125 mcg PO BEDTIME warfarin 5 mg See Protocol PO DAILY Nursing Note Amb to ACS feeling well Medications and supplements reviewed, when questioned pt sts takes lots of vitamins and supplements- to call in or bring in list to update, no new ones No other changes in health, diet, medications, or supplements, Denies any signs and symptoms of bleeding or bruising or clotting. Bleeding, bruising, clotting discussed INR: 3.2 just above therapeutic range pt has had dose adjustments over past few months Dose: will decrease weekly dosing from 7.5mg x 1 day and 5mg x 6 days to 5mg daily Nutritional guidance given- sts appetite is good, balance greens and reds in diet F/U INR: 2 weeks atient verbalizes understanding of instructions given Anti-Coag Initial Assessment Social Hx Patient Tobacco Use Status: Never used Tobacco alcohol intake: never Coding Level of Care Code Est Patient Level 1 Diagnoses Current use of anticoagulant therapy Z79.01 Time Spent (min) 15 Assessment & Plan Assessment & Plan (1) Current use of anticoagulant therapy: Code(s): Z79.01 - 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
== END 2023-05-27 09:44 | disposition home or self-care (01) ==
LOC: HO.ACS 08:16
PROVIDERS: PCP Internal Medicine; Visit Provider Internal Medicine
DX: Z79.01 Long term (current) use of anticoagulants (principal)

== ENCOUNTER → 2023-05-27 08:16 | Outpatient (BNVA) | payer MEDICARE, BC, SELFPAY | PROVIDERS: PCP Internal Medicine; Visit Provider Internal Medicine | DX: I48.20 Chronic atrial fibrillation, unspecified (principal); Z79.01 Long term (current) use of anticoagulants; Z51.81 Encounter for therapeutic drug level monitoring | CPT/HCPCS: 85610; 99211 ==

== ENCOUNTER 2023-06-10 08:20 | Outpatient (AMB) | payer MEDICARE, BC, SELFPAY ==
[2023-06-10 08:27] LABS: Prothrombin Time Whole Bld POC 30.9 sec (11.1-13.5); ~PT, ~INR - Anti Coag Clinic 2.6 (0.9-1.1)
--- NOTE | 2023-06-10 08:34 | MHC.OFFVISCO ---
Intake Intake Visit Reasons: Anticoagulation Allergies penicillamine Adverse Reaction (Unknown, Verified 06/10/23 08:20) nausea,vomiting Medication List - Last Reconciled 06/10/23 by Yulissa Cates RN carvedilol 50 mg PO BID digoxin 125 mcg PO BEDTIME warfarin 5 mg See Protocol PO DAILY Nursing Note INR: 2.6 in therapeutic range Medications and supplements reviewed No changes in health, diet, medications, or supplements, Denies any signs and symptoms of bleeding or bruising or clotting. 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
== END 2023-06-10 08:51 | disposition home or self-care (01) ==
LOC: HO.ACS 08:20
PROVIDERS: PCP Internal Medicine; Visit Provider Internal Medicine
DX: Z79.01 Long term (current) use of anticoagulants (principal)

== ENCOUNTER → 2023-06-10 08:20 | Outpatient (BNVA) | payer MEDICARE, BC, SELFPAY | PROVIDERS: PCP Internal Medicine; Visit Provider Internal Medicine | DX: I48.20 Chronic atrial fibrillation, unspecified (principal); Z51.81 Encounter for therapeutic drug level monitoring; Z79.01 Long term (current) use of anticoagulants | CPT/HCPCS: 85610; 99211 ==

== ENCOUNTER 2023-07-01 08:35 | Outpatient (AMB) | payer MEDICARE, BC, SELFPAY ==
--- NOTE | 2023-07-01 08:41 | MHC.OFFVISCO ---
Intake Intake Visit Reasons: Anticoagulation Allergies penicillamine Adverse Reaction (Unknown, Verified 07/01/23 08:37) nausea,vomiting Medication List - Last Reconciled 07/01/23 by Zarina Mcguire RN ascorbic acid (vitamin C) PO ascorbic acid (vitamin C) PO B-complex with vitamin C (Vitamin B Complex C W/B-12) PO carvedilol 50 mg PO BID digoxin 125 mcg PO BEDTIME [MULTIVITAMIN PO] omega-3 fatty acids (Fish Oil) PO vitamin A palmitate PO vitamin E acetate PO warfarin 5 mg See Protocol PO DAILY Nursing Note INR: 2.1- in therapeutic range of 2-3 Medications and supplements reviewed- no changes No changes in health, diet, medications, or supplements, Denies any signs and symptoms of bleeding or bruising or clotting. 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
[2023-07-01 08:42] LABS: Prothrombin Time Whole Bld POC 25.5 sec (11.1-13.5); ~PT, ~INR - Anti Coag Clinic 2.1 (0.9-1.1)
== END 2023-07-01 08:46 | disposition home or self-care (01) ==
LOC: HO.ACS 08:35
PROVIDERS: PCP Internal Medicine; Visit Provider Internal Medicine
DX: Z79.01 Long term (current) use of anticoagulants (principal)

== ENCOUNTER → 2023-07-01 08:35 | Outpatient (BNVA) | payer MEDICARE, BC, SELFPAY | PROVIDERS: PCP Internal Medicine; Visit Provider Internal Medicine | DX: I48.20 Chronic atrial fibrillation, unspecified (principal); Z79.01 Long term (current) use of anticoagulants; Z51.81 Encounter for therapeutic drug level monitoring | CPT/HCPCS: 85610; 99211 ==

== ENCOUNTER 2023-07-13 09:00 | Outpatient (AMB) | payer MEDICARE, BC, SELFPAY ==
--- NOTE | 2023-07-13 09:13 | MHC.PC.OV ---
Vital Signs 07/13/23 09:15 Height 6 ft 4 in Weight 204 lb 6 oz BMI 24.9 BP 80/60 L Blood Pressure Location Rt brachial Position Sitting Pulse 69 Pulse Source Pulse Oximeter Pulse Oximetry (%) 96 Oxygen Delivery Method Room Air Intake Visit Reasons: Med Review, L foot Edema Intake Note: Patient is here to follow up on med review and left foot edema. 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 Accompanied by: Spouse Allergies penicillamine Adverse Reaction (Unknown, Verified 07/13/23 09:14) nausea,vomiting Medication List - Last Reconciled 07/13/23 by Eduardo Rutledge MD ascorbic acid (vitamin C) 1 tab PO DAILY B-complex with vitamin C (Vitamin B Complex C W/B-12) 1 cap PO DAILY carvedilol 25 mg PO BID digoxin 125 mcg PO DAILY vitamin A palmitate 1 cap PO DAILY vitamin E acetate 1 cap PO DAILY warfarin 5 mg See Protocol PO DAILY Tobacco use date assessed: 07/13/23 Fall risk assessment: No Falls in past year Last assessed Fall Risk: 07/13/23 Dental Screening Dental Screen Date: 07/13/23 Did you have a dental visit in the last 12 months?: Yes Did you have a dental problem in the last 6 months where you did not have access to dental care?: No Was dental information given to patient?: Patient has dentist HPI Med Review, L foot Edema HPI Details 72-year-old male presents to the office to discuss his chronic medical conditions. He is accompanied by his . Patient is at baseline state of health. He has history of atrial fibrillation and congestive heart failure. 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 He sees no other specialists in the area. Patient did not go to the dermatology referral set up in the last office visit. They were traveling and did not feel it was necessary to get to the appointment. Patient is also declined colonoscopy. Reports no symptoms of headache, blurred vision or difficulty walking. [facility] Medical History Congestive heart failure Chronic a-fib Surgical History History of permanent cardiac pacemaker placement Family History Mother No problems noted. Father No problems noted. Social History Housing: House Alcohol intake: never Patient Tobacco Use Status: Never used Tobacco e-Cigarette/Vaping Use: Never Used Second Hand Smoke Exposure: No service: No Current occupational status: retired Cognitive needs: No Hearing needs: No Vision needs: Yes (glasses) Questionnaire Thrive Questionnaire Date Thrive assessed: 03/10/23 TRISTIN-7 AMB Questionnaire TRISTIN-7 Date TRISTIN - 7 assessed: 03/10/23 Source: Developed by Drs. Maninder Coker, Ashley Hernandez, Orlando Costello and colleagues, with an educational nicolette from [employer]. Physical exam (Primary Care) Vital Signs: Last Vital Signs Pulse 69 07/13/23 09:15 BP 80/60 L 07/13/23 09:15 Pulse Ox 96 07/13/23 09:15 Oxygen Delivery Method Room Air 07/13/23 09:15 Care Plan Goal for BP management: Blood pressure reviewed. Carvedilol dosage reduced. BMI result Body Mass Index 24.9 Tobacco/Smoking Status: Tobacco use Status Tobacco use date assessed 07/13/23 07/13/23 09:17 Patient Tobacco Use Status Never used Tobacco 07/13/23 09:17 e-Cigarette/Vaping Use Never Used 07/13/23 09:17 Thrive Assessment: Date of Thrive Assessment Date Thrive assessed 03/10/23 07/13/23 09:17 Advance Care Planning discussion: Exists, not on file Date of discussion: 07/13/23 Who was present: Patient and his . Forms completed: Health Care Proxy and MOLST Time spent: 1-15 minutes, not on file Const General: cooperative and healthy appearing Nutritional Appearance: well nourished Orientation/consciousness: patient oriented x3 Limitations: no limitations HENMT Head: Yes normal to inspection Eyes General: appearance normal, both eyes and all related structures Neck Neck: Yes normal visual inspection Chest Chest palpation & inspection: normal palpation of entire chest wall Resp Effort & Inspection: normal respiratory effort Skin Other: Chest: Nevi on the sternum. Borders are slightly irregular with no bleeding. Neuro General: patient oriented x3 Assessment and Plan Assessment & Plan (1) Congestive heart failure: Code(s): I50.9 - Heart failure, unspecified Plan: Blood pressure is low. Patient is asymptomatic. Carvedilol dosage reduced by 50%. (2) Chronic a-fib: Code(s): I48.20 - Chronic atrial fibrillation, unspecified Plan: Condition is stable. Continue current anticoagulation. Patient is declining to get a colonoscopy done. Orders: Orders Digoxin Today I50.9 - Heart failure, unspecified Basic Metabolic Panel Today I48.20 - Chronic atrial fibrillation, unspecified, I50.9 - Heart failure, unspecified Complete Blood Count no Diff Today I48.20 - Chronic atrial fibrillation, unspecified, I50.9 - Heart failure, unspecified Lipid Panel Today I48.20 - Chronic atrial fibrillation, unspecified, I50.9 - Heart failure, unspecified Liver Panel Today I48.20 - Chronic atrial fibrillation, unspecified, I50.9 - Heart failure, unspecified Thyroid Stimulating Hormone Today I48.20 - Chronic atrial fibrillation, unspecified, I50.9 - Heart failure, unspecified UA and rflx microscopic Today I48.20 - Chronic atrial fibrillation, unspecified, I50.9 - Heart failure, unspecified Coding Level of Care Code Est Pt Level 4 (42599) Diagnoses Congestive heart failure I50.9 Chronic a-fib I48.20 Additional Codes Vital Signs *Quality* - Advance Care Planning discussion: Exists, not on file ([id number]) Vital Signs *Quality* - Time spent: 1-15 minutes, not on file ([id number])
[2023-07-13 09:15] VITALS: BP 80/60; PULSE 69; O2SAT 96; BMI 24.9
== END 2023-07-13 10:20 | disposition home or self-care (01) ==
PROVIDERS: PCP Internal Medicine; Visit Provider Internal Medicine
DX: I50.9 Heart failure, unspecified (principal); I48.20 Chronic atrial fibrillation, unspecified; Z00.00 Encounter for general adult medical examination without abnormal findings
CPT/HCPCS: 1123F; 1124F; 99214

== ENCOUNTER 2023-07-29 08:48 | Outpatient (AMB) | payer MEDICARE, BC, SELFPAY ==
--- NOTE | 2023-07-29 08:57 | MHC.OFFVISCO ---
Intake Intake Visit Reasons: Anticoagulation Allergies penicillamine Adverse Reaction (Unknown, Verified 07/29/23 08:51) nausea,vomiting Medication List - Last Reconciled 07/29/23 by Zarina Mcguire RN ascorbic acid (vitamin C) 1 tab PO DAILY B-complex with vitamin C (Vitamin B Complex C W/B-12) 1 cap PO DAILY carvedilol 25 mg PO BID digoxin 125 mcg PO DAILY vitamin A palmitate 1 cap PO DAILY vitamin E acetate 1 cap PO DAILY warfarin 5 mg See Protocol PO DAILY Nursing Note INR 4.1- out of therapeutic range 2-3 Medications and supplements reviewed Patient status: no c.o Medications or supplements: no changes Diet: same, had strawberries Denies any signs and symptoms of bleeding or clotting or unusual bruising Bleeding, bruising, clotting discussed Nutritional guidance given: eat greens to lower Dose: hold warfarin today then cont 5mg x 7 F/U INR Date : 1 week?? Patient verbalizing understanding of instructions given. Anti-Coag Initial Assessment Social Hx Patient Tobacco Use Status: Never used Tobacco alcohol intake: never Coding Level of Care Code Est Patient Level 1 Diagnoses Current use of anticoagulant therapy Z79.01 Assessment & Plan Assessment & Plan (1) Current use of anticoagulant therapy: Code(s): Z79.01 - halfway (current) use of 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
[2023-07-29 08:58] LABS: Prothrombin Time Whole Bld POC 48.8 sec (11.1-13.5); ~PT, ~INR - Anti Coag Clinic 4.1 (0.9-1.1)
== END 2023-07-29 09:03 | disposition home or self-care (01) ==
LOC: HO.ACS 08:48
PROVIDERS: PCP Internal Medicine; Visit Provider Internal Medicine
DX: Z79.01 Long term (current) use of anticoagulants (principal)

== ENCOUNTER → 2023-07-29 08:48 | Outpatient (BNVA) | payer MEDICARE, BC, SELFPAY | PROVIDERS: PCP Internal Medicine; Visit Provider Internal Medicine | DX: I48.20 Chronic atrial fibrillation, unspecified (principal); Z79.01 Long term (current) use of anticoagulants; Z51.81 Encounter for therapeutic drug level monitoring | CPT/HCPCS: 85610; 99211 ==

== ENCOUNTER 2023-08-05 08:28 | Outpatient (AMB) | payer MEDICARE, BC, SELFPAY ==
--- NOTE | 2023-08-05 08:40 | MHC.OFFVISCO ---
Intake Intake Visit Reasons: Anticoagulation Allergies penicillamine Adverse Reaction (Unknown, Verified 08/05/23 08:29) nausea,vomiting Medication List - Last Reconciled 08/05/23 by Nasima Nava RN ascorbic acid (vitamin C) 1 tab PO DAILY B-complex with vitamin C (Vitamin B Complex C W/B-12) 1 cap PO DAILY carvedilol 25 mg PO BID digoxin 125 mcg PO DAILY vitamin A palmitate 1 cap PO DAILY vitamin E acetate 1 cap PO DAILY warfarin 5 mg See Protocol PO DAILY Nursing Note INR 3.6?out of therapeutic range of 2-3 Medications and supplements reviewed Patient status: well Medications or supplements: no changes Diet: usual diet for pt but although a 5mg dose was held last week for an INR of 4.1 and pt had salad, he also had a lot of strawberries which will raise the INR. Denies any signs and symptoms of bleeding or clotting or unusual bruising Bleeding, bruising, clotting discussed Nutritional guidance given: food list discussed and pt will hold all berries today and will have a serving of cooked broccoli. Then will balance greens and reds. Dose: 2.5mg today (5mg) then resume usual dose of 5mg daily F/U INR Date : 2 weeks?? Patient verbalizing understanding of instructions given. 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
[2023-08-05 09:13] LABS: Prothrombin Time Whole Bld POC 42.9 sec (11.1-13.5); ~PT, ~INR - Anti Coag Clinic 3.6 (0.9-1.1)
== END 2023-08-05 08:47 | disposition home or self-care (01) ==
LOC: HO.ACS 08:28
PROVIDERS: PCP Internal Medicine; Visit Provider Internal Medicine
DX: Z79.01 Long term (current) use of anticoagulants (principal)

== ENCOUNTER → 2023-08-05 08:28 | Outpatient (BNVA) | payer MEDICARE, BC, SELFPAY | PROVIDERS: PCP Internal Medicine; Visit Provider Internal Medicine | DX: I48.20 Chronic atrial fibrillation, unspecified (principal); Z79.01 Long term (current) use of anticoagulants; Z51.81 Encounter for therapeutic drug level monitoring | CPT/HCPCS: 85610; 99211 ==

== ENCOUNTER 2023-08-19 08:20 | Outpatient (AMB) | payer MEDICARE, BC, SELFPAY ==
[2023-08-19 08:27] LABS: Prothrombin Time Whole Bld POC 30.5 sec (11.1-13.5); ~PT, ~INR - Anti Coag Clinic 2.5 (0.9-1.1)
--- NOTE | 2023-08-19 08:31 | MHC.OFFVISCO ---
Intake Intake Visit Reasons: Anticoagulation Allergies penicillamine Adverse Reaction (Unknown, Verified 08/19/23 08:21) nausea,vomiting Medication List - Last Reconciled 08/19/23 by Yulissa Cates, RN ascorbic acid (vitamin C) 1 tab PO DAILY B-complex with vitamin C (Vitamin B Complex C W/B-12) 1 cap PO DAILY carvedilol 25 mg PO BID digoxin 125 mcg PO DAILY vitamin A palmitate 1 cap PO DAILY vitamin E acetate 1 cap PO DAILY warfarin 5 mg See Protocol PO DAILY Nursing Note INR: 2.5 in therapeutic range Medications and supplements reviewed No changes in health, diet, medications, or supplements, Denies any signs and symptoms of bleeding or bruising or clotting. 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
== END 2023-08-19 08:32 | disposition home or self-care (01) ==
LOC: HO.ACS 08:20
PROVIDERS: PCP Internal Medicine; Visit Provider Internal Medicine
DX: Z79.01 Long term (current) use of anticoagulants (principal)

== ENCOUNTER → 2023-08-19 08:20 | Outpatient (BNVA) | payer MEDICARE, BC, SELFPAY | PROVIDERS: PCP Internal Medicine; Visit Provider Internal Medicine | DX: I48.20 Chronic atrial fibrillation, unspecified (principal); Z79.01 Long term (current) use of anticoagulants; Z51.81 Encounter for therapeutic drug level monitoring | CPT/HCPCS: 85610; 99211 ==

== ENCOUNTER 2023-09-16 08:24 | Outpatient (AMB) | payer MEDICARE, BC, SELFPAY ==
--- NOTE | 2023-09-16 08:46 | MHC.OFFVISCO ---
Intake Intake Visit Reasons: Anticoagulation Allergies penicillamine Adverse Reaction (Unknown, Verified 09/16/23 08:34) nausea,vomiting Medication List - Last Reconciled 09/16/23 by Yulissa Cates, RN ascorbic acid (vitamin C) 1 tab PO DAILY B-complex with vitamin C (Vitamin B Complex C W/B-12) 1 cap PO DAILY carvedilol 25 mg PO BID digoxin 125 mcg PO DAILY vitamin A palmitate 1 cap PO DAILY vitamin E acetate 1 cap PO DAILY warfarin 5 mg See Protocol PO DAILY Nursing Note INR 4.0 out of therapeutic range Medications and supplements reviewed Patient status: has been eating more summer foods that can raise the INR and less cooked foods ( less vit K ) which may be the reason for elevated INR although INR has been trending higher- will cont to monitor closely Medications or supplements: no other changes Diet: good Denies any signs and symptoms of bleeding or clotting or unusual bruising Bleeding, bruising, clotting discussed Nutritional guidance given: cooked foods allow for more vitk absorption Dose: hold today then decrease weekly dose by 2.5mg ( 2.5mg x 1 day/ 5mg x 6 days) F/U INR Date : 10 days to see more of an affect on dosing and diet ?? Patient verbalizing understanding of instructions given. Anti-Coag Initial Assessment Social Hx Patient Tobacco Use Status: Never used Tobacco alcohol intake: never Coding Level of Care Code Est Patient Level 1 Diagnoses Current use of anticoagulant therapy Z79.01 Assessment & Plan Assessment & Plan (1) Current use of anticoagulant therapy: Code(s): Z79.01 - long-term (current) use of 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
== END 2023-09-16 08:49 | disposition home or self-care (01) ==
LOC: HO.ACS 08:24
PROVIDERS: PCP Internal Medicine; Visit Provider Internal Medicine
DX: Z79.01 Long term (current) use of anticoagulants (principal)

== ENCOUNTER → 2023-09-16 08:24 | Outpatient (BNVA) | payer MEDICARE, BC, SELFPAY | PROVIDERS: PCP Internal Medicine; Visit Provider Internal Medicine | DX: I48.20 Chronic atrial fibrillation, unspecified (principal); Z79.01 Long term (current) use of anticoagulants; Z51.81 Encounter for therapeutic drug level monitoring | CPT/HCPCS: 85610; 99211 ==

== ENCOUNTER 2023-09-26 08:16 | Outpatient (AMB) | payer MEDICARE, BC, SELFPAY ==
--- NOTE | 2023-09-26 08:23 | MHC.OFFVISCO ---
Intake Intake Visit Reasons: Anticoagulation Allergies penicillamine Adverse Reaction (Unknown, Verified 09/26/23 08:18) nausea,vomiting Medication List - Last Reconciled 09/26/23 by Zarina Mcguire RN ascorbic acid (vitamin C) 1 tab PO DAILY B-complex with vitamin C (Vitamin B Complex C W/B-12) 1 cap PO DAILY carvedilol 25 mg PO DAILY digoxin 125 mcg PO DAILY vitamin A palmitate 1 cap PO DAILY vitamin E acetate 1 cap PO DAILY warfarin 5 mg See Protocol PO DAILY Nursing Note INR 3.8-?? out of therapeutic range of 2-3 Medications and supplements reviewed Patient status: pt denies decreased appetitie, stress, etoh, tylenol Medications or supplements: carvidilol once per day- several months ago Diet: appetite good Denies any signs and symptoms of bleeding or clotting or unusual bruising Bleeding, bruising, clotting discussed Nutritional guidance given: eat cooked greens for 2 days, no reds for 2-3 days Dose: hold warfarin today, reduce weekly dosing to 2.5mg x 2, 5mg x 5 F/U INR Date : 10-14 days Patient verbalizing understanding of instructions given. Anti-Coag Initial Assessment Social Hx Patient Tobacco Use Status: Never used Tobacco alcohol intake: never Coding Level of Care Code Est Patient Level 1 Diagnoses Current use of anticoagulant therapy Z79.01 Results AMB INR Fingerstick AMB INR Fingerstick 3.8 Last Edit by Zarina Mcguire RN on 09/26/23 08:27 Assessment & Plan Assessment & Plan (1) Current use of anticoagulant therapy: Code(s): Z79.01 - rn long term care (current) use of 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
[2023-09-26 08:33] LABS: Prothrombin Time Whole Bld POC 45.5 sec (11.1-13.5); ~PT, ~INR - Anti Coag Clinic 3.8 (0.9-1.1)
== END 2023-09-26 08:34 | disposition home or self-care (01) ==
LOC: HO.ACS 08:16
PROVIDERS: PCP Internal Medicine; Visit Provider Internal Medicine
DX: Z79.01 Long term (current) use of anticoagulants (principal)

== ENCOUNTER → 2023-09-26 08:16 | Outpatient (BNVA) | payer MEDICARE, BC, SELFPAY | PROVIDERS: PCP Internal Medicine; Visit Provider Internal Medicine | DX: I48.20 Chronic atrial fibrillation, unspecified (principal); Z79.01 Long term (current) use of anticoagulants; Z51.81 Encounter for therapeutic drug level monitoring | CPT/HCPCS: 85610; 99211 ==

== ENCOUNTER 2023-10-12 08:32 | Outpatient (AMB) | payer MEDICARE, BC, SELFPAY ==
[2023-10-12 08:47] LABS: Prothrombin Time Whole Bld POC 24.1 sec (11.1-13.5)
--- NOTE | 2023-10-12 08:51 | MHC.OFFVISCO ---
Intake Intake Visit Reasons: Anticoagulation Allergies penicillamine Adverse Reaction (Unknown, Verified 10/12/23 08:42) nausea,vomiting Medication List - Last Reconciled 10/12/23 by Angelica Brown, RN ascorbic acid (vitamin C) 1 tab PO DAILY B-complex with vitamin C (Vitamin B Complex C W/B-12) 1 cap PO DAILY carvedilol 25 mg PO DAILY digoxin 125 mcg PO DAILY vitamin A palmitate 1 cap PO DAILY vitamin E acetate 1 cap PO DAILY warfarin 5 mg See Protocol PO DAILY Nursing Note NO CP,SOB,DIET/MED CHANGES,FALLS OR SX OF BLEEDING. INCREASE WEEKLY DOSE SLIGHTLY AND FOLLOW-UP IN 4 WEEKS. GOOD UNDERSTANDING OF DOSING INSTR. 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
== END 2023-10-12 08:53 | disposition home or self-care (01) ==
LOC: HO.ACS 08:32
PROVIDERS: PCP Internal Medicine; Visit Provider Internal Medicine
DX: Z79.01 Long term (current) use of anticoagulants (principal)

== ENCOUNTER → 2023-10-12 08:32 | Outpatient (BNVA) | payer MEDICARE, BC, SELFPAY | PROVIDERS: PCP Internal Medicine; Visit Provider Internal Medicine | DX: I48.20 Chronic atrial fibrillation, unspecified (principal); Z79.01 Long term (current) use of anticoagulants; Z51.81 Encounter for therapeutic drug level monitoring | CPT/HCPCS: 85610; 99211 ==

== ENCOUNTER 2023-11-09 08:13 | Outpatient (AMB) | payer MEDICARE, BC, SELFPAY ==
--- NOTE | 2023-11-09 08:20 | MHC.OFFVISCO ---
Intake Intake Visit Reasons: Anticoagulation Allergies penicillamine Adverse Reaction (Unknown, Verified 11/09/23 08:16) nausea,vomiting Medication List - Last Reconciled 11/09/23 by Zarina Mcguire RN ascorbic acid (vitamin C) 1 tab PO DAILY B-complex with vitamin C (Vitamin B Complex C W/B-12) 1 cap PO DAILY carvedilol 25 mg PO DAILY digoxin 125 mcg PO DAILY vitamin A palmitate 1 cap PO DAILY vitamin E acetate 1 cap PO DAILY warfarin 5 mg See Protocol PO DAILY Nursing Note INR: 2.6- in therapeutic range of 2-3 Medications and supplements reviewed- no changes No changes in health, diet, medications, or supplements, Denies any signs and symptoms of bleeding or bruising or clotting. 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
[2023-11-09 08:21] LABS: Prothrombin Time Whole Bld POC 30.7 sec (11.1-13.5); ~PT, ~INR - Anti Coag Clinic 2.6 (0.9-1.1)
== END 2023-11-09 08:29 | disposition home or self-care (01) ==
LOC: HO.ACS 08:13
PROVIDERS: PCP Internal Medicine; Visit Provider Internal Medicine
DX: Z79.01 Long term (current) use of anticoagulants (principal)

== ENCOUNTER → 2023-11-09 08:13 | Outpatient (BNVA) | payer MEDICARE, BC, SELFPAY | PROVIDERS: PCP Internal Medicine; Visit Provider Internal Medicine | DX: I48.20 Chronic atrial fibrillation, unspecified (principal); Z79.01 Long term (current) use of anticoagulants; Z51.81 Encounter for therapeutic drug level monitoring | CPT/HCPCS: 85610; 99211 ==

== ENCOUNTER 2023-12-09 08:07 | Outpatient (AMB) | payer MEDICARE, BC, SELFPAY ==
[2023-12-09 08:18] LABS: ~PT, ~INR - Anti Coag Clinic 2.3 (0.9-1.1)
--- NOTE | 2023-12-09 08:22 | MHC.OFFVISCO ---
Intake Intake Visit Reasons: Anticoagulation Allergies penicillamine Adverse Reaction (Unknown, Verified 12/09/23 08:11) nausea,vomiting Medication List - Last Reconciled 12/09/23 by Nasima Nava, RN ascorbic acid (vitamin C) 1 tab PO DAILY B-complex with vitamin C (Vitamin B Complex C W/B-12) 1 cap PO DAILY carvedilol 25 mg PO DAILY digoxin 125 mcg PO DAILY vitamin A palmitate 1 cap PO DAILY vitamin E acetate 1 cap PO DAILY warfarin 5 mg See Protocol PO DAILY Nursing Note INR: 2.3 in therapeutic range of 2-3 Medications and supplements reviewed No changes in health, diet, medications, or supplements, Denies any signs and symptoms of bleeding or bruising or clotting. Bleeding, bruising, clotting discussed Nutritional guidance given Dose: 5mg X 6 days and 2.5mg X 1 day () F/U INR: 4 weeks Patient verbalizes understanding of instructions given Anti-Coag Initial Assessment Social Hx Patient Tobacco Use Status: Never used Tobacco alcohol intake: never Coding Level of Care Code Est Patient Level 1 Diagnoses Current use of anticoagulant therapy Z79.01 Results AMB INR Fingerstick AMB INR Fingerstick 2.3 Last Edit by Nasima Nava RN on 12/09/23 08:18 interface delay Assessment & Plan Assessment & Plan (1) Current use of anticoagulant therapy: Code(s): Z79.01 - residential (current) use of 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
== END 2023-12-09 08:24 | disposition home or self-care (01) ==
LOC: HO.ACS 08:07
PROVIDERS: PCP Internal Medicine; Visit Provider Internal Medicine
DX: Z79.01 Long term (current) use of anticoagulants (principal)

== ENCOUNTER → 2023-12-09 08:07 | Outpatient (BNVA) | payer MEDICARE, BC, SELFPAY | PROVIDERS: PCP Internal Medicine; Visit Provider Internal Medicine | DX: I48.20 Chronic atrial fibrillation, unspecified (principal); Z79.01 Long term (current) use of anticoagulants; Z51.81 Encounter for therapeutic drug level monitoring | CPT/HCPCS: 85610; 99211 ==

== ENCOUNTER 2024-01-20 09:23 | Outpatient (AMB) | payer MEDICARE, BC, SELFPAY ==
--- OUTSIDE RECORDS SUMMARY | 2024-01-20 09:26 | XMS_ITS ---
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 Generated for Printi alex/Reg/eTransmitting on:?01/20/2024 09:25 AM EST
--- OUTSIDE RECORDS SUMMARY | 2024-01-20 09:26 | XMS_ITS | Patient Health Record ---
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 Name Role Phone Eduardo Rutledge Primary Care Provider [phone] Laurie Dee [phone] Reason For Referral No Information Encounters Encounter Location Date Provider Diagnosis [facility] [address] [place] [address] 01/10/2024 Laurie Dee Plan Of Treatment Next Appt Details Provider Name:Laurie weiner, 03/28/2024 02:00:00 PM, [address] [place], [phone], Insurance Providers Payer Name Payer Address Payer Phone Subscriber Number Group Number Insured Name Patient Relationship to Insured Coverage Start Date Coverage End Date Medicare [facility] [address] [place] [address] [id number] Lenny Caruso Self - patient is the insured [facility] [address] [place] [address] [id number] Lenny Caruso Self - patient is the insured
[2024-01-20 09:31] LABS: Prothrombin Time Whole Bld POC 28.2 sec (11.1-13.5); ~PT, ~INR - Anti Coag Clinic 2.4 (0.9-1.1)
--- NOTE | 2024-01-20 09:33 | MHC.OFFVISCO ---
Intake Intake Visit Reasons: Anticoagulation Allergies penicillamine Adverse Reaction (Unknown, Verified 01/20/24 09:24) nausea,vomiting Medication List - Last Reconciled 01/20/24 by Nasima Nava, RN ascorbic acid (vitamin C) 1 tab PO DAILY B-complex with vitamin C (Vitamin B Complex C W/B-12) 1 cap PO DAILY carvedilol 25 mg PO DAILY digoxin 125 mcg PO DAILY vitamin A palmitate 1 cap PO DAILY vitamin E acetate 1 cap PO DAILY warfarin 5 mg See Protocol PO DAILY Nursing Note INR: 2.4 in therapeutic range of 2-3 Medications and supplements reviewed No changes in health, diet, medications, or supplements, Denies any signs and symptoms of bleeding or bruising or clotting. Bleeding, bruising, clotting discussed Nutritional guidance given Dose: 5mg X 6 days and 2.5mg X 1 day () F/U INR: 4 weeks Patient verbalizes understanding of instructions given Anti-Coag Initial Assessment Social Hx Patient Tobacco Use Status: Never used Tobacco alcohol intake: never Coding Level of Care Code Est Patient Level 1 Diagnoses Current use of anticoagulant therapy Z79.01 Results AMB INR Fingerstick AMB INR Fingerstick 2.4 Last Edit by Nasima Nava RN on 01/20/24 09:30 interface delay Assessment & Plan Assessment & Plan (1) Current use of anticoagulant therapy: Code(s): Z79.01 - longterm (current) use of 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
== END 2024-01-20 09:34 | disposition home or self-care (01) ==
LOC: HO.ACS 09:23
PROVIDERS: PCP Internal Medicine; Visit Provider Internal Medicine
DX: Z79.01 Long term (current) use of anticoagulants (principal)

== ENCOUNTER → 2024-01-20 09:23 | Outpatient (BNVA) | payer MEDICARE, BC, SELFPAY | PROVIDERS: PCP Internal Medicine; Visit Provider Internal Medicine | DX: I48.20 Chronic atrial fibrillation, unspecified (principal); Z79.01 Long term (current) use of anticoagulants; Z51.81 Encounter for therapeutic drug level monitoring | CPT/HCPCS: 85610; 99211 ==

== ENCOUNTER 2024-02-24 09:01 | Outpatient (AMB) | payer MEDICARE, BC, SELFPAY ==
[2024-02-24 09:35] LABS: Prothrombin Time Whole Bld POC 22.4 sec (11.1-13.5); ~PT, ~INR - Anti Coag Clinic 1.9 (0.9-1.1)
--- NOTE | 2024-02-24 09:40 | MHC.OFFVISCO ---
Intake Intake Visit Reasons: Anticoagulation Allergies penicillamine Adverse Reaction (Unknown, Verified 02/24/24 09:27) nausea,vomiting Medication List - Last Reconciled 02/24/24 by Yulissa Cates RN ascorbic acid (vitamin C) 1 tab PO DAILY B-complex with vitamin C (Vitamin B Complex C W/B-12) 1 cap PO DAILY carvedilol 25 mg PO DAILY digoxin 125 mcg PO DAILY vitamin A palmitate 1 cap PO DAILY vitamin E acetate 1 cap PO DAILY warfarin 5 mg See Protocol PO DAILY Nursing Note INR: 1.9 out of therapeutic range Medications and supplements reviewed States he has been ill x 1 month with URI, still has slight cough and sinus congestion, He stated he fell 2 weeks ago(did nto get seen) tripped over something and hit head on soft cushioned chair - left eye has fading bruising above outer edge of left brow and left eye lid with small dark purple areas in corner of eyelid, denies any pain or headache, or blurry or change in vision, behavior seems different - very vague and seems anxious - he states that he is expecting family from out of state all coming to visit- perhaps in a hurry to be seen but affect seems different. - it was explained that when on warfarin and falls and hit head - he should be evaluated for any type of bleed. He was advised to still f/u with Md and Eye Dr. to make sure everything is ok, he said he would -just saying ok to everything. Bleeding, bruising, clotting discussed- to go to ER with headache, change in vision or confusion or any stroke like symptoms - he stated ok Nutritional guidance given - avoid greens x 2 days Dose: did not increase dose kept same 2.5mg tue/ 5mg x 6 days F/U INR: 2 weeks or per any change in symptoms Patient verbalizes understanding of instructions given with read back msg sent to PCP for concern behavior post fall. 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
== END 2024-02-24 09:52 | disposition home or self-care (01) ==
LOC: HO.ACS 09:01
PROVIDERS: PCP Internal Medicine; Visit Provider Internal Medicine
DX: Z79.01 Long term (current) use of anticoagulants (principal)

== ENCOUNTER → 2024-02-24 09:01 | Outpatient (BNVA) | payer MEDICARE, BC, SELFPAY | PROVIDERS: PCP Internal Medicine; Visit Provider Internal Medicine | DX: I48.20 Chronic atrial fibrillation, unspecified (principal); Z79.01 Long term (current) use of anticoagulants; Z51.81 Encounter for therapeutic drug level monitoring | CPT/HCPCS: 85610; 99211 ==

== ENCOUNTER 2024-03-09 08:33 | Outpatient (AMB) | payer MEDICARE, BC, SELFPAY ==
--- NOTE | 2024-03-09 08:50 | MHC.OFFVISCO ---
Intake Intake Visit Reasons: Anticoagulation Allergies penicillamine Adverse Reaction (Unknown, Verified 03/09/24 08:41) nausea,vomiting Medication List - Last Reconciled 03/09/24 by Nasima Nava RN ascorbic acid (vitamin C) 1 tab PO DAILY B-complex with vitamin C (Vitamin B Complex C W/B-12) 1 cap PO DAILY carvedilol 25 mg PO DAILY digoxin 125 mcg PO DAILY vitamin A palmitate 1 cap PO DAILY vitamin E acetate 1 cap PO DAILY warfarin 5 mg See Protocol PO DAILY Nursing Note Pt to [facility] accompanied by . Both are recovering from RSV but feeling much better. INR: 2.8 in therapeutic range of 2-3 Medications and supplements reviewed No changes in health, diet, medications, or supplements, Denies any signs and symptoms of bleeding or bruising or clotting. Bleeding, bruising, clotting discussed Nutritional guidance given Dose: 5mg X 6 days and 2.5mg X 1 day () F/U INR: 4 weeks Patient verbalizes understanding of instructions with read back given Anti-Coag Initial Assessment Social Hx Patient Tobacco Use Status: Never used Tobacco alcohol intake: never Coding Level of Care Code Est Patient Level 1 Diagnoses Current use of anticoagulant therapy Z79.01 Results AMB INR Fingerstick AMB INR Fingerstick 2.8 Last Edit by Nasima Nava RN on 03/09/24 08:49 interface delay Assessment & Plan Assessment & Plan (1) Current use of anticoagulant therapy: Code(s): Z79.01 - 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
[2024-03-09 08:56] LABS: Prothrombin Time Whole Bld POC 34.1 sec (11.1-13.5); ~PT, ~INR - Anti Coag Clinic 2.8 (0.9-1.1)
== END 2024-03-09 08:57 | disposition home or self-care (01) ==
LOC: HO.ACS 08:33
PROVIDERS: PCP Internal Medicine; Visit Provider Internal Medicine
DX: Z79.01 Long term (current) use of anticoagulants (principal)

== ENCOUNTER 2024-03-14 15:03 | Outpatient (REF) | payer MEDICARE, BC, SELFPAY ==
[2024-03-14 17:08] LABS: Appearance Urine Clear; Color Urine Dark Yellow; Glucose Urine UA Negative (Negative); Leukocyte Esterase Urine Negative (Negative); Nitrite Urine Negative (Negative); PH 5.5 (5.0-9.0); Urine Blood Negative (Negative); Urine Ketones Negative (Negative); Urine Protein Negative (Neg-Trace)
== END 2024-03-14 15:04 | disposition home or self-care (01) ==
LOC: HO.LNP 15:03
PROVIDERS: PCP Internal Medicine
DX: Z00.00 Encounter for general adult medical examination without abnormal findings (principal); I50.9 Heart failure, unspecified; I48.20 Chronic atrial fibrillation, unspecified; Z79.01 Long term (current) use of anticoagulants
CPT/HCPCS: 81002; 81003

== ENCOUNTER 2024-04-06 08:50 | Outpatient (REF) | payer MEDICARE, BC, SELFPAY ==
[2024-04-06 09:37] LABS: MANUAL DIFF FLAG NO
[2024-04-06 10:19] LABS: Basophils Absolute Auto 0.1 X10*3/uL (0.0-0.2); Basophils Percent Auto 0.9 % (0-2); Eosinophils Absolute Auto 0.2 X10*3/uL (0.0-0.4); Eosinophils Percent Auto 3.2 % (0-4); Hematocrit 43.2 % (42.0-52.0); Imm Gran Abs Auto 0.01 X10*3/uL (0.00-0.03); Imm Gran Pct Auto 0.2 % (0.0-0.4); Lymphocytes Absolute Auto 1.2 X10*3/uL (1.2-4.9); Lymphocytes Percent Auto 21.9 % (20-40); Mean Corpuscular HGB Conc 32.4 g/dl (31.0-36.0); Mean Corpuscular Hemoglobin 31.1 pg (27.0-33.0); Mean Platelet Volume 9.6 fL (9.4-12.4); Monocytes Absolute Auto 0.3 X10*3/uL (0.1-1.2); Monocytes Percent Auto 6.4 % (2-11); Neutrophils Absolute Auto 3.6 x10*3/uL (2.0-8.3); Neutrophils Percent Auto 67.4 % (45-73); Platelet Count 209 X10*3/uL (160-400); Red Cell Distribution Width 13.9 % (11.0-16.0); White Blood Count 5.3 X10*3/uL (4.8-10.8)
[2024-04-06 10:54] LABS: Digoxin 0.8 ng/mL (0.8-2.0)
[2024-04-06 11:14] LABS: Alanine Aminotransferase 16 U/L (0-40); Albumin Level 3.7 g/dL (3.5-5.0); Alkaline Phosphatase 68 U/L (39-117); Anion Gap 10 (12-20); Aspartate Amino Transferase 25 U/L (5-37); Bilirubin Total 1.1 mg/dL (0.0-1.0); Blood Urea Nitrogen 23 mg/dL (9-16); Calcium 9.1 mg/dL (8.4-10.2); Carbon Dioxide 26 mmol/L (22-29); Chloride 106 mmol/L (96-108); Cholesterol 166 mg/dL (<200); Estimated Glomerular Filt Rate > 60; Glucose Fasting 97 mg/dL (60-99); HDL Cholesterol 49 mg/dL (>40); LDL Cholesterol Calculated 100 mg/dL (<100); Potassium 4.3 mmol/L (3.3-5.1); Sodium 138 mmol/L (135-145); Triglycerides 85 mg/dL (<150)
[2024-04-06 11:15] LABS: TSH reflex Free T4 0.92 uIU/mL (0.32-4.0); Vitamin D 25-OH Total 48.7 ng/mL (>30)
== END 2024-04-06 08:51 | disposition home or self-care (01) ==
LOC: HO.LAB 08:50
PROVIDERS: PCP Internal Medicine; Visit Provider Internal Medicine
DX: Z00.00 Encounter for general adult medical examination without abnormal findings (principal); Z79.01 Long term (current) use of anticoagulants; I48.20 Chronic atrial fibrillation, unspecified; I50.9 Heart failure, unspecified
CPT/HCPCS: 36415; 80053; 80061; 80162; 82306; 84443; 85025; 85610; 99211

== ENCOUNTER 2024-04-06 08:50 | Outpatient (AMB) | payer MEDICARE, BC, SELFPAY ==
[2024-04-06 09:00] LABS: Prothrombin Time Whole Bld POC 26.6 sec (11.1-13.5); ~PT, ~INR - Anti Coag Clinic 2.2 (0.9-1.1)
--- NOTE | 2024-04-06 09:02 | MHC.OFFVISCO ---
Intake Intake Visit Reasons: Anticoagulation Allergies penicillamine Adverse Reaction (Unknown, Verified 04/06/24 08:50) nausea,vomiting Medication List - Last Reconciled 04/06/24 by Nasima Nava, RN ascorbic acid (vitamin C) 1 tab PO DAILY B-complex with vitamin C (Vitamin B Complex C W/B-12) 1 cap PO DAILY carvedilol 25 mg PO DAILY digoxin 125 mcg PO DAILY lorazepam 0.5 mg PO BID PRN trazodone 50 mg PO BEDTIME PRN vitamin A palmitate 1 cap PO DAILY vitamin E acetate 1 cap PO DAILY warfarin 5 mg See Protocol PO DAILY Nursing Note INR: 2.2 in therapeutic range of 2-3 Medications and supplements reviewed No changes in health, diet, medications, or supplements, Denies any signs and symptoms of bleeding or bruising or clotting. Bleeding, bruising, clotting discussed Nutritional guidance given Dose: continue same dose of 5mg X 6 days and 2.5mg X 1 day (2.5mg) F/U INR: 4 weeks Patient verbalizes understanding of instructions given Anti-Coag Initial Assessment Social Hx Patient Tobacco Use Status: Never used Tobacco alcohol intake: never Coding Level of Care Code Est Patient Level 1 Diagnoses Current use of anticoagulant therapy Z79.01 Assessment & Plan Assessment & Plan (1) Current use of anticoagulant therapy: Code(s): Z79.01 - [facility] (current) use of 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
--- OUTSIDE RECORDS SUMMARY | 2024-04-06 09:10 | XMS_ITS ---
Author Organization [facility] Address [address] [place] [address] Care Team Providers Care Sales Relationship Manager Name Role Phone Eduardo Rutledge Primary Care Provider Laurie Dee [phone] REASON FOR VISIT JET PIERCER OPERATOR PPWK Entered Encounters Encounter Location Date Provider Diagnosis [facility] [address] [place] [address] 03/19/2024 Laurie Dee Plan Of Treatment Next Appt Details Provider Name:Laurie weiner, 04/30/2024 03:15:00 PM, [address] [facility], [place], [address], Progress Notes * DANIELAnshul KillianOB:1950 (73 yo M)Acc No.[id number]:03/19/2024 Patient:?Lenny SANCHEZ :1950???Age:73 Y???Sex:Male Address:[address] [place] [address] [place], [id number] * true * Date:? Generated for Printi ng/Farahatg/eTransmitting on:?04/06/2024 09:09 AM EST
--- OUTSIDE RECORDS SUMMARY | 2024-04-06 09:10 | XMS_ITS ---
Author Organization [facility] Address [address] [place] [address] Care Team Providers Care Scale Reclamation Tender Name Role Phone Maty, Kartik Primary Care Provider Laurie Dee [phone] REASON FOR VISIT OUTPATIENT RECEPTIONIST Encounters Encounter Location Date Provider Diagnosis [facility] [address] [place] [address] 01/10/2024 Laurie Dee Plan Of Treatment Next Appt Details Provider Name:Laurie weiner, 04/30/2024 03:15:00 PM, [address] [facility], [place], [address], Progress Notes * Anshul SANCHEZOB:1950 (73 yo M)Acc No.[id number]:01/10/2024 Patient:?Lenny SANHCEZ :1950???Age:73 Y???Sex:Male Address:[address] [place] [address] [place], [address] * true * Date:? Generated for Printi ng/Farahatg/eTransmitting on:?04/06/2024 09:09 AM EST
--- OUTSIDE RECORDS SUMMARY | 2024-04-06 09:10 | XMS_ITS | Patient Health Record ---
Author Organization [facility] Cesar rodgers [place] Address [address] [place] [address] Care Team Providers Care Hand Embroiderer Name Role Phone Eduardo Rutledge Primary Care Provider [phone] Laurie Dee [phone] Allergies Allergen (clinical drug ingredient) Drug/Non Drug Allergy documented on EMR Reaction Allergy Type Onset Date Status Penicillin Unknown Drug Allergy Active Reason For Referral No Information Medications Medication SIG (Take, Route, Fr equency, Duration) Notes Start Date End Date Status Digoxin Active Carvedilol Active Warfarin Sodium Acti ve traZODone HCl 50 MG TAKE 1 TABLET ORALLY BEDTIME NEEDED FOR SLEEP Oral for 90 Days Active Social History Tobacco Use: Social History Observation Description Date Details (start date - stop date) Never Smoker NA - NA Tobacco use other than smoking: Question Answer Notes Are you an other tobacco user? No Tobacco Control (Standard) Question Answer Notes Tobacco use: Nonsmoker Additional Findings: Tobacco non-user Current no nsmoker AUDIT-C (Standard) Question Answer Notes Did you have a drink containing alcohol in the p ast year? 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) Active confirmed Response to treatment Problem Localized, primary osteoarthritis of the ankle and/or foot (698760021) Arthritis of joint of lesser toe, left (M19.072) Active confirmed Problem Localized, primary osteoarthritis of the ankle and/or foot (677319630) Arthritis of joint of lesser toe, right (M19.071) Active confirmed Problem 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) Active confirmed Response to treatment Vital Signs Blood pressure diastolic 80 mm Hg 03/28/2024 Height 6ft3in in 03/28/2024 Blood pressure systolic 120 mm Hg 03/28/2024 Weight 194 lbs 03/28/2024 BMI 24.25 kg/m2 03/28/2024 Encounters [facility]counter [facility] [address] [facility]/28/[facility] Laurie Dee Neuropathic ulcer of right foot with fat layer exposed L97.512 ; Other hammer toe(s) (acquired), right foot M20.41 ; Pain in right toe(s) M79.674 ; Onychomycosis B35.1 ; Pain in left toe(s) M79.675 ; Arthritis of joint of lesser toe, right M19.071 ; Other hammer toe(s) (acquired), left foot M20.42 ; Arthritis of joint of lesser toe, left M19.072 and Neuropathy G62.[address] [address] 01/10/2024 Laurie Dee [address] [address] 03/19/2024 Laurie Dee Assessments Encounter Date Diagnosis (ICD Code) Assessment Notes Treatment Notes Treatment Clinical Notes Section Notes 03/28/2024 Other hammer toe(s) (acquired), right foot (ICD-10 - M20.41) 03/28/2024 Neuropathic ulcer of right foot with fat layer exposed (ICD-10 - L97.512) Response to treatment Patient Educated with: WOUND CARE INSTRUCTIONS.p df (WOUND CARE INSTRUCTIONS.p df) 03/28/2024 Pain in right toe(s) (ICD-10 - M79.674) 03/28/2024 Onychomycosis (ICD-10 - B35.1) 03/28/2024 Pain in left toe(s) (ICD-10 - M79.675) 03/28/2024 Arthritis of joint of lesser toe, right (ICD-10 - M19.071) 03/28/2024 Other hammer toe(s) (acquired), left foot (ICD-10 - M20.42) 03/28/2024 Arthritis of joint of lesser toe, left (ICD-10 - M19.072) 03/28/2024 Neuropathy (ICD-10 - G62.9) 03/28/2024 Other Plan Of Treatment Pending Test Test Name Order Date X ray : Foot, right 3V 03/28/2024 Next Appt Details Provider Name:Laurie weiner, 04/30/2024 03:15:00 PM, [address] [facility], [place], [address], Insurance Providers Payer Name Payer Address Payer Phone Subscriber Number Group Number Insured Name Patient Relationship to Insured Coverage Start Date Coverage End Date Medicare [employer] [address] [facility] [address] [id number] Lenny Caruso Self - patient is the insured [address] [place] [address] [address] [place] [address] [id number] Lenny Caruso Self - patient is the insured Medical (General) History Medical History History ICD Code Covid 19 Heart Disease Me[place] Chicken Pox A fib ICD Device Surgical History Surgery Date(Month/Year) ICD Battery Replacement 2020
--- OUTSIDE RECORDS SUMMARY | 2024-04-06 09:10 | XMS_ITS ---
Author Organization [facility] Cesar ana maria [place] Address [address] [place] [address] Care Team Providers Care Front Office Agent Name Role Phone Eduardo Rutledge Primary Care Provider Laurie Dee [phone] Allergies Allergen (clinical drug ingredient) Drug/Non Drug Allergy documented on EMR Reaction Allergy Type Onset Date Status Penicillin Unknown Drug Allergy Active REASON FOR VISIT Open sore, Painful nail(s) aggravated by shoes causing difficulty standing/walking, Painful Toe(s) Medications Medication SIG (Take, Route, Fr equency, [...] Problem Status W/U Status Risk Notes Problem 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) Active confirmed Response to treatment Problem Neuropathic ulcer of right foot with fat layer exposed (L97.512) Active confirmed Response to treatment Problem Acquired hammer toe of right foot (1075304148046244 ) Other hammer toe(s) (acquired), right foot (M20.41) Active confirmed Problem Localized, primary osteoarthritis of the ankle and/or foot (492930750) Arthritis of joint of lesser toe, right (M19.071) Active confirmed Problem Acquired hammer toe of left foot (8433717086911114 ) Other hammer toe(s) (acquired), left foot (M20.42) Active confirmed Problem Localized, primary osteoarthritis of the ankle and/or foot (703798880) Arthritis of joint of lesser toe, left (M19.072) Active confirmed Problem 808940403 Neuropathy (G62.9) Active confirmed Vital Signs Height 6ft3in in 03/28/2024 Weight 194 lbs 03/28/2024 BMI 24.25 kg/m2 03/28/2024 Blood pressure systolic 120 mm Hg 03/28/19 25 Blood pressure diastolic 80 mm Hg 025 Encounters Encounter Location Date Provider Diagnosis [facility] [address] [address] 03/28/2024 Laurie Dee Neuropathic ulcer of right [...] lesser toe, left M19.072 and Neuropathy G62.9 Assessments Encounter Date Diagnosis (ICD Code) Assessment Notes Treatment Notes Treatment Clinical Notes Section Notes 03/28/2024 Neuropathic ulcer of right foot with fat layer exposed (ICD-10 - L97.512) Response to treatment Patient Educated with: WOUND CARE INSTRUCTIONS.p df (WOUND CARE INSTRUCTIONS.p df) 03/28/2024 Other hammer toe(s) (acquired), right foot (ICD-10 - M20.41) 03/28/2024 Pain in right toe(s) (ICD-10 - M79.674) 03/28/2024 Onychomycosis (ICD-10 - B35.1) 03/28/2024 Pain in left toe(s) (ICD-10 - M79.675) 03/28/2024 Arthritis of joint of lesser toe, right (ICD-10 - M19.071) 03/28/2024 Other hammer toe(s) (acquired), left foot (ICD-10 - M20.42) 03/28/2024 Arthritis of joint of lesser toe, left (ICD-10 - M19.072) 03/28/2024 Neuropathy (ICD-10 - G62.9) 03/28/2024 Other Plan Of Treatment Treatment Notes Assessment Notes Neuropathic ulcer of right f oot with fat layer exposed Patient Educated with: WOUND CARE INSTRUCTIONS.pdf (WOUND CARE INSTRUCTIONS.pdf) Pending Test Test Name Order Date X ray : Foot, right 3V 03/28/2024 Next Appt Details Follow Up: 4 Weeks, Reason: Provider Name:Laurie weiner, 04/30/2024 03:15:00 PM, [address] [place] [address], [phone], Procedure Notes * Category Sub-Category Detail Notes Debride Nail 6-10 Nail debridement Due to the cl inical pathology outlined in the exam findings, performance of this nail treatment is medically necessary as its management by an unskilled/untrained nonprofessional would put this patients foot and overall health at risk. Therefore, debridement to affected nail(s), as described in exam ( TA, T1, T4, T5, T6, T9, ), was performed exclusively by the physician of record to reduce/remove overall nail length, girth, thickness, subungual debris, and necrotic tissue, by manual and/or electrical means through the use of a nail nipper and/or dremel-type rubber grinder, to a more viable healthy nail plate or bed tissue 6-10 nails in total. Silver nitrate was used for any petechial bleeding as necessary. Definitive antifungal treatment options, both pharmaceutical and surgical, have been reviewed and discussed with the patient. The patient solely prefers the use of intermittent/as needed professional debridement services for their nail condition and understands the need for additional periodic treatments to maintain effectiveness in symptomatic relief - 53373 Debride skin and subQ Open wound NEUROPATHY : Physician of record performed open wound selective debridement of devitalized necrotic/nonviable soft tissue, fibrin, exudate, epidermis, dermis, thru skin and subcutaneous fat tissue, first 20 sq cm or less, using sharp dissection with sterile 15 blade, and/or tissue nippers. ANESTHESIA was not required due to presence of NEUROPATHY. Hemostasis was controlled through direct pressure. Sterile antibiotic dressing applied. Post debridement measurements: 5 mm x 7 mm x 3mm. Character of the wound post debridement is stable (88828), The patient was instructed on importance of proper wound care consisting of pressure reduction, maintainance of moist wound environment, and regular debridement of devitilized tissue, The patient is to cleanse the wound with warm soapy water/peroxide/saline or betadine BID based on product availability, The patient is to apply Antibiotic Oint. to the wound and cover with a DSD, The patient was instructed to change dressings according to orders or PRN saturation, leaks, The patient was instructed to monitor and report any signs or symptoms of infection or any untoward reactions, The patient is to cont the local wound care as directed Progress Notes * DANIELAnshul KillianOB:1950 (73 yo M)Acc No.[id number]:03/28/2024 Progress Notes Patient:?Lenny SANCHEZ Provider:?Laurie Dee DPM :1950???Age:73 Y???Sex:Male Manuel e:03/28/2024 Address:[address] [place] [address] [id number] Pcp:Eduardo Rutledge Subjective: * Chief Complaints: * ???Open sorePainful nail(s) aggravated by shoes causing difficulty standing/walkingPainful Toe(s) * HPI: ???Skin problems:?Nature:?Ulcer.?Location:?Right, 1st, Toe(s).?Duration:?a few weeks.?Treatments:?castor oil.?Painful Nails:?Pt States Last PCP Visit:?Date:?01/26/2024 ???Toe pain:?Nature:?tenderness.?Location:?2-5 B/L feet.?Course:?worse.?Aggravated by:?shoes, any pressure.?Treatments:?rest/alter normal daily activity, change in shoes.? * ROS:?General/Constitutional:?Nausea?denies.?Vomiting?denies.?Hunger Thirst?denies.?Loss appetite?denies.?Chills?denies.?Fatigue?denies.?Fever?denies.?Night Sweats?denies.?Unexplained weight loss?denies.?Unexplained weight gain?denies.?HEENTM:?Dentures?denies.?Dizziness?denies.?Glasses/contacts?admits, denies.?Retinopathy?denies.?Blurred/double vision?denies.?TMJ?denies.?Discharge/drainage?denies.?Implants?denies.?Sore throat?denies.?Dental implants?denies.?Hard of hearing ?denies.?Difficulty chewing/swallowing/speaking?denies.?Nose bleeds?denies.?Sore mouth?denies.?Respiratory:?On Oxygen?denies.?Pneumonia/pleurisy?denies.?Bronchitis?denies.?Emphysema?denies.?C oughing?denies.?Cough blood?denies.?Shortness of breath?denies.?Wheezing?denies.?Cardiovascular:?Pacemaker?admits, denies.?MVP?denies.?WPW?denies.?CHF?admits, denies.?Heart attack?denies.?Septal defect?denies.?Rapid beat?denies.?Chest pain ?denies.?Atrial Fib.?admits, denies.?Murmur/Palpitations?denies.?Gastrointestinal:?Hemorrhoids?denies.?Stomach/Abdominal pain?denies.?Dark blood stool?denies.?Irritable bowel ?denies.?Constipation?denies.?Diarrhea?denies.?Hematology:?Swelling?denies.?Clots?denies.?Varicose Veins?denies.?Bruising?denies.?Bleeding problem?denies.?Genitourinary:?Blood urine?denies.?Frequent/Painfu/urination/bladder control?denies.?Kidney stones?denies.?Infection (UTI)?denies.?Nephropathy?denies.?sex trans dis (STD)?denies.?Prostate?denies.?Musculoskeletal:?Hammertoes?admits, denies.?Bunions?denies.?Back Pain?denies.?Muscle Cramps/ Resting?denies.?Muscle cramps / walking?denies.?Generalized aches and pains?denies.?Weakness?denies.?Integ.:?Brooks?denies.?Scars?denies.?Corns/calluses?denies.?Ingrown nails?denies.?Painful nails?denies.?Open Sores?denies.?Rashes?denies.?Neurologic:?Difficulty sleeping?admits, denies.?Brain disorder?denies.?Numbness?denies.?Balance trouble?denies.?Confusion?denies.?Fainting/blackouts?denies.?Tingling?denies.?Tr emors?denies.? * Medical History:? * Surgical History:?ICD Batter y Replacement 2020 * Hospitalization/Major Diagno stic Procedure:?Denies Past Hospitalization * Family History:?Mother: dece ased, heart attack, defects.?Father: , cancer, heart attack, high blood pressure.? * Social History:?Tobacco Use:?Tobacco use other than smoking?Are you an other tobacco user??No ?Tobacco Control (Standard)?Tobacco use:?Nonsmoker ?Additional Findings: Tobacco non-user?Current nonsmoker ???Drugs/Alcohol:?Drugs?Have you used drugs other than those for medical reasons in the past 12 months??No ???Miscellaneous:?Caffeine: no. ?Children: no. ?Exercise: yes, walking. ?Marital status: . 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 ???Drug/Alcohol:?AUDIT-C (Standard)?Did you have a drink containing alcohol in the past year??No ?Points?0 ?Interpretation?Negative * Medications:?TakingCarvedilo l Digoxin Warfarin Sodium traZODone HCl 50 MG Tablet TAKE 1 TABLET ORALLY BEDTIME NEEDED FOR SLEEP Oral Medication List reviewed and reconciled with the patientTaking Carvedilol Taking Digoxin Taking Warfarin Sodium Taking traZODone HCl 50 MG Tablet TAKE 1 TABLET ORALLY BEDTIME NEEDED FOR SLEEP Oral Medication List reviewed and reconciled with the patient * Allergies:?Penicillinyes[All ergies Verified] Objective: * Vitals:?Ht: 6ft3in, Wt:194, BMI:24.25, Shoe size: 11.5WW, BP:120/80mm Hg, Ht-cm: 190.5 cm, Wt-k kg. * Examination: ???Dermatologic: ?SKIN FINDINGS:?Skin exam reveals Keratotic lesion(s) located at, IPJ, T5.?ULCER:? LOCATION,plantar IPJ hallux??RIGHT, SIZE, 5 mm X 7 mm X 3mm, BASE, fibro-granular, RIM, hyperkeratotic, UNDERMINING, mild, TRACKING, Sub Q with Fat layer exposed, DRAINAGE, serosanguineous, moderate, NECROTIC TISSUE, loosely-adherent, yellow slough, MALODOR, absent, CALOR, absent, ERYTHEMA, absent.?Nails: ?NAILS are:?Elongated, overgrown, dystrophic, lytic, greater than 3mm thick, discolored and friable with crumbly malodorous subungual debris, with pain on palpation, TA, T1,? T4, T5, T6,? T9.?Orthopedic: ?MUSCLE STRENGTH:?5/5 all groups in a symmetrical fashion, B/L.?DIGITAL DEFORMITIES:?Digital contracture, PIPJ, 2-5 B/L, non-reducible with WB or to push-up test, no over, nor underlapping, Digital contracture IPJ T5.?FOOTWEAR:? shoe gear properties exacerbate patients foot/toe deformity.?X-Rays - IMAGING REPORT: ?Clinical Indication(s):? Evaluate Biomechanical Deformity.?Views:?3 views of Foot, AP, LO, MO Right?Taken by trained?Podiatric Supervisor Force Adjustment (?SF ).?Findings:?moderate generalized decrease in bone density, radiolucent soft tissue gas absent, calcified vessels are visible, navicular/cuneiform plantar subluxation with anterior cyma line, dorsal degenerative changes of the tarsal joints.?Foot structure:?reveals excess pronation with, anterior break in cyme line, increased talar declination, decreased calcaneal inclination.?Digits:?show asymmetrical joint space narrowing at the PIPJ consistent with clinical finding of hammertoe deformity, show enlarged/hypertrophied phalangeal head(s) consistent for clinical finding of hammertoe deformity, show dorsal subluxation of IPJ Hallux.?Fracture:?Negative fractures identified.?General Examination: ?GENERAL APPEARANCE:?Reveals a pleasant, alert, well nourished, well- developed, well hydrated individual, who demonstrates proper attention to hygiene/body habitus, and is in no acute distress, Pt serves as own historian for office visit today.?ORIENTED:?person, place, and time.?Vascular: ?DP PULSES (B):?2/4, B/L.?PT PULSES (B):?2/4, B/L.?CAPILLARY FILL TIME:?immediate, all digits, B/L.?TROPHIC CONDITION-TEXTURE/ELASTICITY/TURGOR/HAIR GROWTH (B):?normal, B/L.?TEMPERTURE GRADIENT (C):?normal, warm to cool, proximal to distal, B/L, B/L.?PIGMENTATION:?normal, B/L.?Neurological: ?SENSORY:?Neurological exam demonstrates reduced sharp/dull pin prick discrimination reduced light touch sensation reduced vibration sensation reduced proprioception sensation in a stocking fashion 5.07 monofilament test performed at plantar aspects of 5 varied sites per foot shows sensation plantar aspects absent at Forefoot B/L.? Assessment: * Assessment: 1.?Other hammer toe(s) (acqu ired), right foot - M20.41 (Primary)???2.?Neuropathic ulcer of right foot with fat layer exposed - L97.512???Notes :Response to treatment???3.?Pain in right toe(s) - M79.674???4.?Onychomycosis - B35.1???5.?Pain in left toe(s) - M79.675???6.?Arthritis of joint of lesser toe, right - M19.071???7.?Other hammer toe(s) (acquired), left foot - M20.42???8.?Arthritis of joint of lesser toe, left - M19.072???9.?Neuropathy - G62.9??? Plan: * Treatment: 2.?Pain in right toe(s)?Imaging: X ray : Foot, right 3V * Procedures:?Debride Nail 6-10:?Nail debridement?Due to the clinical pathology outlined in the exam findings, performance of this nail treatment is medically necessary as its management by an unskilled/untrained nonprofessional would put this patients foot and overall health at risk. Therefore, debridement to affected nail(s), as described in exam ( TA, T1, T4, T5, T6, T9, ), was performed exclusively by the physician of record to reduce/remove overall nail length, girth, thickness, subungual debris, and necrotic tissue, by manual and/or electrical means through the use of a nail nipper and/or dremel-type rubber grinder, to a more viable healthy nail plate or bed tissue 6-10 nails in total. Silver nitrate was used for any petechial bleeding as necessary. Definitive antifungal treatment options, both pharmaceutical and surgical, have been reviewed and discussed with the patient. The patient solely prefers the use of intermittent/as needed professional debridement services for their nail condition and understands the need for additional periodic treatments to maintain effectiveness in symptomatic relief - 93134.?Debride skin and subQ:?Open wound?NEUROPATHY: Physician of record performed open wound selective debridement of devitalized necrotic/nonviable soft tissue, fibrin, exudate, epidermis, dermis, thru skin and subcutaneous fat tissue, first 20 sq cm or less, using sharp dissection with sterile 15 blade, and/or tissue nippers. ANESTHESIA was not required due to presence of NEUROPATHY. Hemostasis was controlled through direct pressure. Sterile antibiotic dressing applied. Post debridement measurements: 5 mm x 7 mm x 3mm. Character of the wound post debridement is stable (19088), The patient was instructed on importance of proper wound care consisting of pressure reduction, maintainance of moist wound environment, and regular debridement of devitilized tissue, The patient is to cleanse the wound with warm soapy water/peroxide/saline or betadine BID based on product availability, The patient is to apply Antibiotic Oint. to the wound and cover with a DSD, The patient was instructed to change dressings according to orders or PRN saturation, leaks, The patient was instructed to monitor and report any signs or symptoms of infection or any untoward reactions, The patient is to cont the local wound care as directed.? * Procedure Codes:?52389 DEBRI DE SKIN/TISSUE, Modifiers: XS 61963 DEBRIDE NAIL, 6 OR MORE, Modifiers: XS 52023 X-RAY EXAM OF RIGHT FOOT 3V, Modifiers: 26 , RT * Preventive Medicine:? ??Counseling:?Discussion:?-04: Office or other outpatient visit for the evaluation and management of a new patient, which required a medically appropriate history and/or examination and MODERATE level of DECISION MAKING for: 1 OR MORE CHRONIC PROBLEM(S) THATS WORSENING, 2 STABLE CHRONIC PROBLEMS, A NEWLY DIAGNOSED PROBLEM WITH UNCERTAIN PROGNOSIS, AN ACUTE COMPLICATED INJURY WITH MULTIPLE TREATMENT OPTIONS, OR AN ACUTE PROBLEM WITH ACCOMPANYING SYSTEMIC SYMPTOMS, THAT POSE(S) A MODERATE RISK OF MORBIDITY. THIS CONDITION MAY ALSO INCLUDE RX DRUG MANAGEMENT, OR A DECISON FOR MINOR SURGERY. The visit on the day of the encounter encompassed interpreting the data and educating the patient as to the nature of their condition, treatment options available according to their individual PMH, meds, allergies, and overall health/living conditions, as well as any potential risks or complications that may occur from a failure to adhere to, and participate in, the recommended course of therapy. The discussion included a complete verbal, and/or written explanation of the examination results, any x-rays taken, the proposed diagnosis, and outline of the treatment plan. A schedule for future care needs was also explained. The patient verbalized an understanding of the instructions at this time and agreed to be an active participant in their treatment. If the patient should think of any questions or concerns after the visit, I have encouraged the patient to call the office.?Digital Surgery:?Digital surgery was discussed with the patient, including the risks of surgery(below), vs not having surgery (persistent pain, deformity, risk for skin ulceration/infection, loss of toe), the potential surg complications, the anesthesia, and the usual post-op course. No guarentees were given. We discussed the potential procedure complications including, but not limited to: pain, swelling, bleeding, scarring, numbness, infection, delayed/non healing, floppy/unstable/shorthened toe, recurrence, failure of the procedure, overcorrection leading to plantarflexed/downward positioned toe, recurrence, need for further surgery, as well as the possibility for loss of the toe itself. We discussed the use of local anesthesia, and the usual post-op course for healing. No guarentees were given. The patient verbally indicated a full understanding of the above conversation, and any other of their questions were answered to their satisfaction. Alternatives to the procedure were also discussed, including conservative care. I also discussed the usual post-operative course and gave no guarantees regarding outcome.?Digital Treatment:?HT- I explained to the patient the possible etiologies of Hammertoes, including genetics/foot type/shoegear/activity level/exercise routine and the risks/benefits of all the different treatment options for their pain including: No treatment at all, Rest, Ice, New/supportive/wider/deeper Shoe gear, Digital Padding/Strapping/Taping/Bracing/Gel protective sleeves, Foot/Ankle AFO Bracing, Stretching exercises, Deep Tissue Massage, Arch support/shoe inserts with splay metatarsal padding, and Custom orthoses. I insisted that any digital devices be removed daily and not worn overnight for safety. The patient is to carefully examine the toes daily for any skin irritation while using any splinting or padding device. The advantages and disadvantages of each option were discussed and the patients questions re: shoe gear, padding, custom vs prefabricated inserts, activity level, and consistency in home treatment regimens for optimal success were answered to their verbally confirmed satisfaction.?Fungal Nail Counseling:?The patient was counseled on the diagnosis, potential etiologies (including, but not limited to, environmental factors, genetic, immune deficiency), and the multiple treatment options for Onychomycosis. We discussed the risks and benefits of each option from performing no treatment, to ultraviolet light shoe treatment, to laser nail treatment, to applying topical antifungals, to taking oral antifungal medication, to surgical removal of the involved nail(s) with or without performing a matricectomy, or any combination thereof. We discussed the advantages and disadvantages of each of possible treatment and importance for adherence to all the recommended therapies for optimum success. This includes the necessity for weekly emery board self nail home debridements, and control the nail and skin environment as much as possible by only using a fresh, dry pair of shoes/socks each day, as well as keeping the skin as dry as possible through the use of sprays/powders if necessary. The patient was instructed to discard the emery board after use to prevent reinfection of the involved nail(s). We discussed the mycological and visual clinical effectiveness of topical vs oral antifungal treatments as well as each ones potential side effects and/or any patient- specific medication interactions. We discussed the reasons behind the important requirement of regular liver function testing with oral antifungal therapy for safety. Patient questions regarding use, dosage, successful outcomes, blood tests, and possible pharmaceutical interactions were reviewed and the patient verbalized that all answers were clearly understood.?Shoe Gear Counseling:?The patient and I reviewed the types of shoes they should be wearing. My recommendation included obtaining a well-fitted shoe with a good supportive, non-foldable nor twistable sole, plenty of toe/room for the forefoot, and proper arch support. Based on todays examination, I recommended the patient look for new shoes, by having their feet professionally measured. We discussed that generally the best time of the day for a shoe fitting is the afternoon. Different shoes types and brands to best match the patients occupation and vocation were discussed. Specific brand selection will be up to the patient, their individual foot condition/deformities, and fit. The patient and I reviewed the standard new shoe break in period by wearing them for a few hours a day while checking for redness or sores as wear time is increased. The patient verbally confirmed to understanding the information discussed.?Ulcer:?A detailed plan of care was reviewed with the patient. We emphasized the fact that the patient takes on an active participating role in the treatment process and emphasized to them that they are an included, valued, and important member of the wound healing team in order to reach an expedient successful outcome. The patient agreed to follow their medically recommended diet while increasing their protein intake if safely able to do so, maintain proper bodily hydaration, abide by weight-bearing restrictions at all times, quit all current smoking habits if any, and diligently follow any/all dressing change instructions. It was clearly made known to the patient that if they fail to do their part, they will likely extend their course of treatment as well as possibly increase their risk of adverse events including amputation. The patient was instructed on importance of proper wound care consisting of pressure reduction, and proper maintainance of a moist wound environment. The patient is to cleanse the wound with warm soapy water/peroxide/saline, or betadine BID based on product availability. The patient is to apply ( Neosporin, Polysporin, or Triple, ) Antibiotic to the wound and cover with a DSD as directed. The patient was instructed to change dressings according to orders, or PRN saturation, leaks. The patient was instructed to monitor and report any signs or symptoms of infection or any untoward reactions. Precautions Taken: Offloading/Pressure reduction via rest/ limited activity to essential to daily life only, cane/ crutches/ walker/ knee scooter/ wheel chair, shoe modification, accommodative padding, sharp debridement, and take/apply medication as directed. THE GOALS of wound debridement to remove devitilized tissue, decrease risk for infection, promote wound healing and prevent further complication were discussed/reviewed. Debridement frequency as indicated.?X-rays:?Discussed and reviewed the X-rays with the patient. We discussed how the findings relate to the patients symptoms/complaints. Answered any and all questions..? ??Screening/Special Tests:?Fall Risk?Screening:?No falls in the past year ?FALLS: Screening for Future Fall Risk?Have you had any falls with injury in the past year??No * Follow Up:?4 Weeks * Images: * Sign off status: Completed true * Provider:?Laurie Dee DPM Date:? Generated for Francisco johnson/Reg/Florentino on:?04/06/2024 09:09 AM EST History and Physical Notes * HPI (History of Present Illness) Category Sub-Category Detail Notes Category Not es Toe pain Nature: tenderness Location: 2-5 B/L feet Course: worse Aggravated by: shoes, any pressure Treatments: rest/alter normal da earl activity, change in shoes Painful Nails Pt States Last PCP Visit: Date:: 01/26/2024 Skin problems Nature: Ulcer Location: Right, 1st, Toe(s) Duration: a few weeks Treatments: castor oil Examination Category Sub-Category Detail Notes Category Not es Neurological SENSORY: Neurological exa m demonstrates reduced sharp/dull pin prick discrimination reduced light touch sensation reduced vibration sensation reduced proprioception sensation in a stocking fashion 5.07 monofilament test performed at plantar aspects of 5 varied sites per foot shows sensation plantar aspects absent at Forefoot B/L Dermatologic SKIN FINDINGS: Skin exam reveal s Keratotic lesion(s) located at, IPJ, T5 ULCER: LOCATION,plantar IPJ hallux RIGHT, SIZE, 5 mm X 7 mm X 3mm, BASE, fibro- granular, RIM, hyperkeratotic, UNDERMINING, mild, TRACKING, Sub Q with Fat layer exposed, DRAINAGE, serosanguineous, moderate, NECROTIC TISSUE, loosely-adherent, yellow slough, MALODOR, absent, CALOR, absent, ERYTHEMA, absent Orthopedic FOOTWEAR: shoe gear proper ties exacerbate patients foot/toe deformity DIGITAL DEFORMITIES: Digital contracture , PIPJ, 2-5 B/L, non-reducible with WB or to push-up test, no over, nor underlapping, Digital contracture IPJ T5 MUSCLE STRENGTH: 5/5 all groups in a symmetrical fashion, B/L General Examination GENERAL APPEARANCE: Reveals a pleasant, alert, well nourished, well-developed, well hydrated individual, who demonstrates proper attention to hygiene/body habitus, and is in no acute distress, Pt serves as own historian for office visit today ORIENTED: person, place, and t maximilian V[facility] DP PULSES (B): 2/4, B/L PT PULSES (B): 2/4, B/L CAPILLARY FILL TIME: immediate, all digi ts, B/L TEMPERTURE GRADIENT (C): normal, warm to cool, proximal to distal, B/L, B/L TROPHIC CONDITION-TEXTURE/ELASTICITY/TURGOR/HAIR GROWTH (B): normal, B/L PIGMENTATION: normal, B/L Nails NAILS are: Elongated, overg rown, dystrophic, lytic, greater than 3mm thick, discolored and friable with crumbly malodorous subungual debris, with pain on palpation, TA, T1, T4, T5, T6, T9 X-Rays - IMAGING REPORT Findings: moderate generalized decrease in bone density, radiolucent soft tissue gas absent, calcified vessels are visible, navicular/cuneiform plantar subluxation with anterior cyma line, dorsal degenerative changes of the tarsal joints Fracture: Negative fractures i dentified Digits: show asymmetrical colette int space narrowing at the PIPJ consistent with clinical finding of hammertoe deformity, show enlarged/hypertrophied phalangeal head(s) consistent for clinical finding of hammertoe deformity, show dorsal subluxation of IPJ Hallux Foot structure: reveals excess prona tion with, anterior break in cyme line, increased talar declination, decreased calcaneal inclination Views: 3 views of Foot, AP, LO, MO Right Taken by trained Podiatric Supervisor Force Adjustment ( SF ) Clinical Indication(s): Evaluate Biomech anical Deformity
== END 2024-04-06 10:39 | disposition home or self-care (01) ==
LOC: HO.ACS 08:50
PROVIDERS: PCP Internal Medicine; Visit Provider Internal Medicine
DX: Z79.01 Long term (current) use of anticoagulants (principal)

== ENCOUNTER 2024-05-04 08:47 | Outpatient (AMB) | payer MEDICARE, BC, SELFPAY ==
--- NOTE | 2024-05-04 09:07 | MHC.OFFVISCO ---
Intake Intake Visit Reasons: Anticoagulation Allergies penicillamine Adverse Reaction (Unknown, Verified 05/04/24 08:55) nausea,vomiting Medication List - Last Reconciled 05/04/24 by Nasima Nava RN ascorbic acid (vitamin C) 1 tab PO DAILY B-complex with vitamin C (Vitamin B Complex C W/B-12) 1 cap PO DAILY carvedilol 25 mg PO DAILY digoxin 125 mcg PO DAILY lorazepam 0.5 mg PO BID PRN trazodone 50 mg PO BEDTIME PRN vitamin A palmitate 1 cap PO DAILY vitamin E acetate 1 cap PO DAILY warfarin 5 mg See Protocol PO DAILY Nursing Note INR: 3.3?out of therapeutic range of 2-3 Medications and supplements reviewed Patient status: well Medications or supplements: no changes Diet: has had more reds (raise the INR) over last few days Denies any signs and symptoms of bleeding or clotting or unusual bruising Bleeding, bruising, clotting discussed Nutritional guidance given: to have a serving of greens today Dose: 5mg X 6 days and 2.5mg X 1 day F/U INR Date: 4 weeks?? Patient verbalizing understanding of instructions given. Anti-Coag Initial Assessment Social Hx Patient Tobacco Use Status: Never used Tobacco alcohol intake: never Coding Level of Care Code Est Patient Level 1 Diagnoses Current use of anticoagulant therapy Z79.01 Results AMB INR Fingerstick AMB INR Fingerstick 3.3 Last Edit by Nasima Nava RN on 05/04/24 09:02 interface delay Assessment & Plan Assessment & Plan (1) Current use of anticoagulant therapy: Code(s): Z79.01 - emt intermediate (current) use of 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
[2024-05-04 09:09] LABS: Prothrombin Time Whole Bld POC 39.2 sec (11.1-13.5); ~PT, ~INR - Anti Coag Clinic 3.3 (0.9-1.1)
== END 2024-05-04 09:10 | disposition home or self-care (01) ==
LOC: HO.ACS 08:47
PROVIDERS: PCP Internal Medicine; Visit Provider Internal Medicine Medical Oncology
DX: Z79.01 Long term (current) use of anticoagulants (principal)

== ENCOUNTER → 2024-05-04 08:47 | Outpatient (BNVA) | payer MEDICARE, BC, SELFPAY | PROVIDERS: PCP Internal Medicine; Visit Provider Internal Medicine Medical Oncology | DX: I48.20 Chronic atrial fibrillation, unspecified (principal); Z79.01 Long term (current) use of anticoagulants; Z51.81 Encounter for therapeutic drug level monitoring | CPT/HCPCS: 85610; 99211 ==

== ENCOUNTER 2024-06-01 08:56 | Outpatient (AMB) | payer MEDICARE, BC, SELFPAY ==
--- OUTSIDE RECORDS SUMMARY | 2024-06-01 09:01 | XMS_ITS ---
Author Organization [facility] Address [address] [place] [address] Care Team Providers Care Resolution Rep Name Role Phone MatyEduardo yang Primary Care Provider [phone] Laurie Dee [phone] REASON FOR VISIT purchased corn pads Encounters Encounter Location Date Provider Diagnosis [facility] [address] [place] [address] 04/30/2024 Laurie Dee Plan Of Treatment Next Appt Details Provider Name:Laurie weiner, 06/18/2024 03:30:00 PM, [address] [facility], [place], [address], Progress Notes * Anshul SANCHEZOB:1950 (73 yo M)Acc No.[id number]:04/30/2024 Patient:?Lenny SANCHEZ :1950???Age:73 Y???Sex:Male Address:[address] [place] [address] [place], [address] * true * Date:? Generated for Printi ng/Faxing/eTransmitting on:?06/01/2024 09:01 AM EDT
--- OUTSIDE RECORDS SUMMARY | 2024-06-01 09:02 | XMS_ITS ---
Author Organization [facility] Address [address] [place] [address] Care Team Providers Care Millinery Designer Name Role Phone Eduardo Rutledge Primary Care Provider Laurie Dee [phone] Allergies Allergen (clinical drug ingredient) Drug/Non Drug [...] Problem Acquired hammer toe of right foot (2667362877622907 ) Other hammer toe(s) (acquired), right foot (M20.41) Active confirmed Problem Acquired hammer toe of left foot (7184011619155358 ) Other hammer toe(s) (acquired), left foot (M20.42) Active confirmed Problem Localized, primary osteoarthritis of the ankle and/or foot (725525939) Arthritis of joint of lesser toe, left (M19.072) Active confirmed Problem [id number] Neuropathy (G62.9) Active confirmed Vital Signs Height 6ft3in in 03/28/2024 Weight 194 lbs 03/28/2024 BMI 24.25 kg/m2 03/28/2024 Blood pressure systolic 120 mm Hg 03/28/19 Blood pressure diastolic 80 mm Hg 025 Encounters Encounter Location Date Provider Diagnosis [facility] [address] [address] 03/28/2024 Laurie Candidoregine Neuropathic ulcer of right foot with fat [...] Up: 4 Weeks, Reason: Provider Name:Laurie weiner, 06/18/2024 03:30:00 PM, [address] [place] [address], [place], [address], Procedure Notes * Category Sub-Category Detail Notes [...] use of a nail nipper and/or dremel-type drill grinder, to a more viable healthy nail [...] to maintain effectiveness in symptomatic relief - 71364 Debride skin and subQ Open wound NEUROPATHY [...] of the wound post debridement is stable (94357), The patient was instructed on importance of [...] wound care as directed Progress Notes * SHADYRobinDellOB:1950 (73 yo M)Acc No.[id number]:03/28/2024 Progress Notes Patient:?SHADY Lenny Provider:?Laurie Dee DPM :1950???Age:73 Y???Sex:Male Manuel e:03/28/2024 Address:[address] [place] [id number] Pcp:Eduardo Rutledge Subjective: * Chief Complaints: * [...] Foot, AP, LO, MO Right?Taken by trained?Podiatric Automobile Or Truck Rental Dispatcher (?SF ).?Findings:?moderate generalized decrease in bone density, [...] use of a nail nipper and/or dremel-type drill grinder, to a more viable healthy nail [...] to maintain effectiveness in symptomatic relief - 82761.?Debride skin and subQ:?Open wound?NEUROPATHY: Physician of record [...] of the wound post debridement is stable (22819), The patient was instructed on importance of [...] local wound care as directed.? * Procedure Codes:?83903 DEBRI DE SKIN/TISSUE, Modifiers: XS 38827 DEBRIDE NAIL, 6 OR MORE, Modifiers: XS 57959 X-RAY EXAM OF RIGHT FOOT 3V, Modifiers: [...] Dee DPM Date:? Generated for Francisco johnson/Reg/Florentino on:?06/01/2024 09:01 AM EDT History and Physical Notes * HPI (History [...] MALODOR, absent, CALOR, absent, ERYTHEMA, absent Orthopedic FOOTWEAR EVALUATION: shoe gear p roperties exacerbate patients foot/toe deformity DIGITAL DEFORMITIES: Digital [...] LO, MO Right Taken by trained Podiatric Automobile Or Truck Rental Dispatcher ( SF ) Clinical Indication(s): Evaluate Biomech anical Deformity
--- OUTSIDE RECORDS SUMMARY | 2024-06-01 09:02 | XMS_ITS ---
Author Organization [facility] Address [address] [place] [address] Care Team Providers Care Solvent Mixer Name Role Phone Eduardo Rutledge Primary Care Provider Laurie Dee [phone] Allergies Allergen (clinical drug ingredient) Drug/Non Drug Allergy documented on EMR Reaction Allergy Type Onset Date Status Penicillin Unknown Drug Allergy Active REASON FOR VISIT Open sore, Painful Toe(s) Medications Medication SIG (Take, Route, Fr equency, Duration) Notes Start Date End Date Status traZODone HCl 50 MG TAKE 1 TABLET ORALLY BEDTIME NEEDED FOR SLEEP Oral for 90 Days Active Warfarin Sodium Acti ve Digoxin Active Carvedilol Active Social History Tobacco Use: Social History [...] Status Risk Notes Problem Neuropathic ulcer of right foot (disorder) ([id number] 9102) Neuropathic ulcer of right foot, limited to breakdown of skin (L97.511) Active confirmed Response to treatment - Unresolved Vital Signs Height 6ft 3in in 04/30/2024 Weight 194 lbs 04/30/2024 BMI 24.25 kg/m2 04/30/2024 Blood pressure systolic 120 mm Hg 05/01/19 25 Blood pressure diastolic 88 mm Hg 025 Encounters Encounter Location Date Provider Diagnosis [facility] [address] [address] 04/30/2024 Laurie Dee Neuropathic ulcer of right foot, limited to breakdown of skin L97.511 ; Other hammer toe(s) (acquired), right foot M20.41 and Neuropathy G62.9 Assessments Encounter Date Diagnosis (ICD Code) Assessment Notes Treatment Notes Treatment Clinical Notes Section Notes 04/30/2024 Neuropathic ulcer of right foot, limited to breakdown of skin (ICD-10 - L97.511) Response to treatment - Unresolved Patient Educated with: WOUND CARE INSTRUCTIONS.p df (WOUND CARE INSTRUCTIONS.p df) 04/30/2024 Other hammer toe(s) (acquired), right foot (ICD-10 - M20.41) 04/30/2024 Neuropathy (ICD-10 - G62.9) Plan Of Treatment Treatment Notes Assessment Notes Neuropathic ulcer of right f oot, limited to breakdown of skin Patient Educated with: WOUND CARE INSTRUCTIONS.pdf (WOUND CARE INSTRUCTIONS.pdf) Next Appt Details Follow Up: 4 Weeks, Reason: Provider Name:Laurie weiner, 06/18/2024 03:30:00 PM, [address] [facility], [place], [address], Procedure Notes * Category Sub-Category Detail Notes Debride skin< 25 sq cm Open wound NEUROPATH Y: Physician of record performed open wound selective debridement of first 25 sq cm or less, of devitilized necrotic/nonviable soft tissue, fibrin, and exudate extending from the epidermis through the dermis, utilizing sharp dissection with sterile 15 blade, and/or tissue nippers. Hemostasis was controlled through direct pressure. Sterile antibiotic dressing applied, ANESTHESIA was not required due to presence of NEUROPATHY. Post debridement measurements: 5 mm x 5 mm x 2mm. Character of the wound post debridement is stable (91599), The patient was instructed on importance of [...] wound care as directed Progress Notes * Anshul CARUSOOB:1950 (73 yo M)Acc No.[id number]:04/30/2024 Progress Notes Patient:?Lenny CARUSO Provider:?Laurie Dee DPM :1950???Age:73 Y???Sex:Male Manuel e:04/30/2024 Address:[address] [place] [phone] Pcp:Eduardo Rutledge Subjective: * Chief Complaints: * ???Open sorePainful Toe(s) * HPI: ???Skin problems:?Nature:?Ulcer.?Location:?Bottom, Right, 1st, Toe(s).?Duration:?a few months.?Course:?unresolved.?Treatments:?Topical abx, bandaid, pt has not been resting walks twice a day.?Toe pain:?Location:?Right foot, Great toe.?Duration:?a few months.?Aggravated by:?any pressure, shoes.?Treatments:?rest/alter normal daily activity, change in shoes.? * [...] History:? * Surgical History:?ICD Batter y Replacement 2013, 2020 * Hospitalization/Major Diagno stic Procedure:?Denies Past [...] * Allergies:?Penicillinyes[All ergies Verified] Objective: * Vitals:?Ht: 6ft 3in, Wt:194, BMI:24.25, Shoe size: 11.5WW, BP:120/88mm Hg, Ht- cm: 190.5 cm, Wt-k kg. * Examination: ???Dermatologic: ?ULCER:?LOCATION, plantar IPJ T5?RIGHT, SIZE, 5 mm X 5 mm X 2mm, BASE, granular, RIM, hyperkeratotic, UNDERMINING, absent, TRACKING, Full thickness breakdown of skin, DRAINAGE, serosanguineous, mild, NECROTIC TISSUE, loosely-adherent, yellow slough, MALODOR, absent, CALOR, absent, ERYTHEMA, absent.?Orthopedic: ?MUSCLE STRENGTH:?5/5 all groups in a symmetrical fashion, B/L.?DIGITAL DEFORMITIES:?Digital contracture, PIPJ, 2-5 B/L, non-reducible with WB or to push-up test, no over, nor underlapping, Digital contracture IPJ T5.?FOOTWEAR:? shoe gear properties exacerbate patients foot/toe deformity , shoe gear properties exacerbate patients foot/toe deformity.?General Examination: ?GENERAL APPEARANCE:?Reveals a pleasant, alert, well [...] hammer toe(s) (acqu ired), right foot - M20.41???2.?Neuropathic ulcer of right foot, limited to breakdown of skin - L97.511 (Primary)???Notes :Response to treatment - Unresolved???3.?Neuropathy - G62.9??? Plan: * Treatment: * Procedures:?Debride skin< 25 sq cm:?Open wound?NEUROPATHY: Physician of record performed open wound selective debridement of first 25 sq cm or less, of devitilized necrotic/nonviable soft tissue, fibrin, and exudate extending from the epidermis through the dermis, utilizing sharp dissection with sterile 15 blade, and/or tissue nippers. Hemostasis was controlled through direct pressure. Sterile antibiotic dressing applied, ANESTHESIA was not required due to presence of NEUROPATHY. Post debridement measurements: 5 mm x 5 mm x 2mm. Character of the wound post debridement is stable (96927), The patient was instructed on importance of [...] local wound care as directed.? * Procedure Codes:?88177 ACTIV E WOUND CARE/20 CM OR <, Modifiers: XS * Preventive Medicine:? ??Counseling:?Discussion:?-13: Office or other outpatient visit for the evaluation and management of an established patient, which required a medically appropriate history and/or examination and LOW level of DECISION MAKING for: 1 STABLE ACUTE UNCOMPLICATED PROBLEM, 2 OR MORE MINOR PROBLEMS, OR 1 STABLE CHRONIC PROBLEM, THAT POSE(S) A LOW RISK FOR MORBIDITY/MORTALITY. The visit on the day of the [...] encouraged the patient to call the office.?Digital Treatment:?HT- I explained to the patient the [...] success were answered to their verbally confirmed satisfaction.?Ulcer:?A detailed plan of care was reviewed with [...] able to do so, maintain proper bodily hydration, abide by weight-bearing restrictions at all times, [...] care consisting of pressure reduction, and proper maintenance of a moist wound environment. The patient is to cleanse the wound with warm soapy water/peroxide/saline, or betadine BID based on product availability. The patient is to apply ( NEOSPORIN, POLYSPORIN, or TRIPLE OINTMENT, ) Antibiotic to the wound and cover with a DSD as directed. The patient was instructed to change dressings according to orders, or PRN saturation, leaks. The patient was instructed to monitor and report any signs or symptoms of infection or any untoward reactions. Precautions Taken: Offloading/Pressure reduction via rest/ limited activity to essential to daily life only, cane/ crutches/ walker/ knee scooter/ wheelchair, shoe modification, accommodative padding, sharp debridement, and take/apply medication as directed. THE SHORT-TERM GOALS of wound care include, prevent hospitalization, debridement to remove devitalized tissue, minimize risk for soft tissue or bone infection, initiate and promote the wound healing process, and prevent further complication such as loss of limb or life were discussed/reviewed. THE LONG-TERM GOALS of wound care include, complete wound closure if possible, facilitate patient comfort, prevent recurrence, and return the patient to their pre-ulcerative state of activity and lifestyle if possible, Debridement frequency as indicated.? ??Screening/Special Tests:?Fall Risk?Screening:?No falls in the past year ?FALLS: Screening for Future Fall Risk?Have you had any falls with injury in the past year??No * Follow Up:?4 Weeks * Images: * Sign off status: Completed true * Provider:?Laurie Dee, MUNIR Date:? Generated for Francisco johnson/Reg/Florentino on:?06/01/2024 09:01 AM EDT History and Physical Notes * HPI (History of Present Illness) Category Sub-Category Detail Notes Category Not es Toe pain Location: Right foot, Great toe Duration: a few months Aggravated by: any pressure, shoes Treatments: rest/alter normal da earl activity, change in shoes Skin problems Nature: Ulcer Location: Bottom, Right, 1st, Toe(s) Duration: a few months Course: unresolved Treatments: Topical abx, bandaid , pt has not been resting walks twice a day Examination Category Sub-Category Detail Notes Category Not es Neurological SENSORY: Neurological exa m demonstrates reduced sharp/dull pin prick discrimination reduced light touch sensation reduced vibration sensation reduced proprioception sensation in a stocking fashion 5.07 monofilament test performed at plantar aspects of 5 varied sites per foot shows sensation plantar aspects absent at Forefoot B/L Dermatologic ULCER: LOCATION, planta r IPJ T5 RIGHT, SIZE, 5 mm X 5 mm X 2mm, BASE, granular, RIM, hyperkeratotic, UNDERMINING, absent, TRACKING, Full thickness breakdown of skin, DRAINAGE, serosanguineous, mild, NECROTIC TISSUE, loosely-adherent, yellow slough, MALODOR, absent, CALOR, absent, ERYTHEMA, absent Orthopedic FOOTWEAR EVALUATION: shoe gear p roperties exacerbate patients foot/toe deformity , shoe gear properties exacerbate patients foot/toe deformity DIGITAL DEFORMITIES: Digital [...]
--- OUTSIDE RECORDS SUMMARY | 2024-06-01 09:02 | XMS_ITS | Patient Health Record ---
Author Organization [facility] Address [address] [place] [address] Care Team Providers Care Animal Humane Agent Supervisor Name Role Phone Eduardo Rutledge Primary Care Provider [phone] Laurie Dee [phone] Allergies Allergen (clinical drug ingredient) Drug/Non Drug [...] Problem Acquired hammer toe of right foot (3003786780154321 ) Other hammer toe(s) (acquired), right foot (M20.41) Active confirmed Problem Acquired hammer toe of left foot (6384805885791549 ) Other hammer toe(s) (acquired), left foot (M20.42) Active confirmed Problem [id number] Neuropathy (G62.9) Active confirmed Problem Neuropathic ulcer of right foot with fat layer exposed (L97.512) Active confirmed Response to treatment Problem Localized, primary osteoarthritis of the ankle and/or foot (064804686) Arthritis of joint of lesser toe, left (M19.072) Active confirmed Problem 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) Active confirmed Response to treatment Problem Neuropathic ulcer of right foot (disorder) (4645714583754618 2) Neuropathic ulcer of right foot, limited to breakdown of skin (L97.511) Active confirmed Response to treatment - Unresolved Vital Signs Blood pressure diastolic 88 mm Hg 04/30/2024 Height 6ft 3in in 04/30/2024 Blood pressure systolic 120 mm Hg 04/30/2024 Weight 194 lbs 04/30/2024 BMI 24.25 kg/m2 04/30/2024 Encounters Encounter Location Date Provider Diagnosis [address] [address] 03/28/2024 Laurie Dee Neuropathic ulcer of right [...] lesser toe, left M19.072 and Neuropathy G62.[address] [address] 04/30/2024 Laurie Dee Neuropathic ulcer of right foot, limited to breakdown of skin L97.511 ; Other hammer toe(s) (acquired), right foot M20.41 and Neuropathy G62.[address] [address] 01/10/2024 Laurie Dee [address] [address] 03/19/2024 Laurie Dee [address] [address] 04/30/2024 Laurie Dee Assessments Encounter Date Diagnosis (ICD [...] (acquired), right foot (ICD-10 - M20.41) 04/30/2024 Neuropathic ulcer of right foot, limited to breakdown of skin (ICD-10 - L97.511) Response to treatment - Unresolved Patient Educated with: WOUND CARE INSTRUCTIONS.p df (WOUND CARE INSTRUCTIONS.p df) 04/30/2024 Neuropathy (ICD-10 - G62.9) 03/28/2024 Pain in right toe(s) (ICD-10 - [...] 03/28/2024 Next Appt Details Provider Name:Laurie weiner, 06/18/2024 03:30:00 PM, [address] [facility], [place], [address], Insurance Providers Payer Name Payer Address Payer Phone Subscriber Number Group Number Insured Name Patient Relationship to Insured Coverage Start Date Coverage End Date [employer] [address] [place] [address] [id number] Lenny Caruso Self - patient is the insured [facility] [address] [place] [address] [id number] Lenny Caruso Self - patient is the insured Medical (General) History Medical History History ICD Code Covid 19 Heart Disease Measle Mumps Chicken Pox A fib ICD Device Surgical History Surgery Date(Month/Year) ICD Battery Replacement 2020
[2024-06-01 09:12] LABS: Prothrombin Time Whole Bld POC 23.8 sec (11.1-13.5)
--- NOTE | 2024-06-01 09:24 | MHC.OFFVISCO ---
Intake Intake Visit Reasons: Anticoagulation Allergies penicillamine Adverse Reaction (Unknown, Verified 06/01/24 08:57) nausea,vomiting Medication List - Last Reconciled 06/01/24 by Yulissa Cates, RN ascorbic acid (vitamin C) 1 tab PO DAILY B-complex with vitamin C (Vitamin B Complex C W/B-12) 1 cap PO DAILY digoxin 125 mcg PO DAILY metoprolol succinate ER mg PO trazodone 50 mg PO BEDTIME PRN vitamin A palmitate 1 cap PO DAILY vitamin E acetate 1 cap PO DAILY warfarin 5 mg See Protocol PO DAILY Nursing Note INR: 2.0 in therapeutic range Medications and supplements reviewed- CARVEDILOL D/CD AND STARTED ON METOPROLOL- TO DISCUSS DOSE WITH MD , ON GABAPENTIN NOW TO EASE ANXIETY, No changes in health, diet, or supplements, Denies any signs and symptoms of bleeding or bruising or clotting. Bleeding, bruising, clotting discussed Nutritional guidance given EAT A MIX OF FRUITS AND VEGETABLES - WAIT A DAY TO EAT GREENS SO INR CAN COME UP Dose: KEEP SAME DOSE 2.5MG X 1 DAY/ 5MG X 6 DAYS F/U INR: 4 WEEKS OR PER HEALTH OR MED CHANGES Patient verbalizes understanding of instructions given Anti-Coag Initial Assessment Social Hx Patient Tobacco Use Status: Never used Tobacco alcohol intake: never Questionnaires HAS-BLED Does the patient had uncontrolled Hypertension?: No Does the patient have renal disease?: No Does the patient have liver disease?: No Does the patient have a history of stroke?: No Has the patient had major bleeding or predisposition to bleeding?: No Does the patient have labile INRs?: Yes Is the patient over 65 years of age?: Yes Is the patient on medications that gives them a predisposition to bleeding?: Yes Does the patient use alcohol?: No HAS-BLED Score: 3 CHADSVASC Age: 75 or over Gender: Male Does the patient have a history of CHF?: Yes Does the patient have a history of Hypertension?: Yes Does the patient have a history of Stroke/TIA/Thromboembolism?: No Does the patient have a history of Vascular Disease (prior DC, PAD or aortic plaque)?: Yes (X4 ) Does the patient have a history of Diabetes?: No CHADS VACS Score: 5 Jamey Prediction Score Rsk VTE Active Cancer: No Previous VTE, excluding superficial vein thrombosis: No Reduced mobility: No Already known Thrombophilic Condition: No With-in last month Trauma and/or Surgery: No Elderly 70 year or older: Yes Heart and/or Respiratory Failure: Yes Acute Myocardial infarction and/or Ischemic Stroke: Yes Acute Infection and/or Rheumatologic Disorder: No Obesity (BMI 30 or greater): No Ongoing Hormonal Treatment: No Score: 3 Jamey Score less than 4; Low Risk of VTE Jamey Score 4 or greater; High Risk of VTE Coding Level of Care Code Est Patient Level 1 Diagnoses Current use of anticoagulant therapy Z79.01 Assessment & Plan Assessment & Plan (1) Current use of anticoagulant therapy: Code(s): Z79.01 - termite inspector (current) use of 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 Medications: New gabapentin PO
== END 2024-06-01 09:28 | disposition home or self-care (01) ==
LOC: HO.ACS 08:56
PROVIDERS: PCP Internal Medicine; Visit Provider Internal Medicine Medical Oncology
DX: Z79.01 Long term (current) use of anticoagulants (principal)

== ENCOUNTER → 2024-06-01 08:56 | Outpatient (BNVA) | payer MEDICARE, BC, SELFPAY | PROVIDERS: PCP Internal Medicine; Visit Provider Internal Medicine Medical Oncology | DX: I48.20 Chronic atrial fibrillation, unspecified (principal); Z79.01 Long term (current) use of anticoagulants; Z51.81 Encounter for therapeutic drug level monitoring | CPT/HCPCS: 85610; 99211 ==

== ENCOUNTER 2024-06-29 08:59 | Outpatient (AMB) | payer MEDICARE, BC, SELFPAY ==
--- OUTSIDE RECORDS SUMMARY | 2024-06-29 09:18 | XMS_ITS ---
Author Organization [facility] Address [address] [place] [address] Care Team Providers Care Trans Router Name Role Phone MatyEduardo yang Primary Care Provider [phone] Laurie Dee [phone] REASON FOR VISIT purchased corn pads Encounters Encounter Location Date Provider Diagnosis [facility] [address] [place] [address] 04/30/2024 Laurie Dee Plan Of Treatment Next Appt Details Provider Name:Laurie weiner, 09/03/2024 02:00:00 PM, [address] [facility], [place], [address], Progress Notes * Anshul SANCHEZOB:1950 (73 yo M)Acc No.[id number]:04/30/2024 Patient:?Lenny SANCHEZ :1950???Age:73 Y???Sex:Male Address:[address] [place] [address] [place], [address] * true * Date:? Generated for Printi ng/Faxing/eTransmitting on:?06/29/2024 09:17 AM EDT
[2024-06-29 09:32] LABS: Prothrombin Time Whole Bld POC 32.4 sec (11.1-13.5); ~PT, ~INR - Anti Coag Clinic 2.7 (0.9-1.1)
--- NOTE | 2024-06-29 09:37 | MHC.OFFVISCO ---
Intake Intake Visit Reasons: Anticoagulation Allergies penicillamine Adverse Reaction (Unknown, Verified 06/29/24 09:21) nausea,vomiting Medication List - Last Reconciled 06/29/24 by Nasima Nava RN ascorbic acid (vitamin C) 1 tab PO DAILY B-complex with vitamin C (Vitamin B Complex C W/B-12) 1 cap PO DAILY digoxin 125 mcg PO DAILY gabapentin PO trazodone 50 mg PO BEDTIME PRN vitamin A palmitate 1 cap PO DAILY vitamin E acetate 1 cap PO DAILY warfarin 5 mg See Protocol PO DAILY Nursing Note INR: 2.7 in therapeutic range of 2-3 Medications and supplements reviewed No changes in health, diet, medications, or supplements, Denies any signs and symptoms of bleeding or bruising or clotting. Bleeding, bruising, clotting discussed Nutritional guidance given Dose: 5mg X 6 days and 2.5mg X 1 day () F/U INR: 4 weeks Patient verbalizes understanding of instructions given Anti-Coag Initial Assessment Social Hx Patient Tobacco Use Status: Never used Tobacco alcohol intake: never Coding Level of Care Code Est Patient Level 1 Diagnoses Current use of anticoagulant therapy Z79.01 Results AMB INR Fingerstick AMB INR Fingerstick 2.7 Last Edit by Nasima Nava RN on 06/29/24 09:32 interface delay Assessment & Plan Assessment & Plan (1) Current use of anticoagulant therapy: Code(s): Z79.01 - residential (current) use of 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 Medications: New metoprolol succinate ER 50 mg PO DAILY
== END 2024-06-29 09:39 | disposition home or self-care (01) ==
LOC: HO.ACS 08:59
PROVIDERS: PCP Internal Medicine; Visit Provider Internal Medicine Medical Oncology
DX: Z79.01 Long term (current) use of anticoagulants (principal)

== ENCOUNTER → 2024-06-29 08:59 | Outpatient (BNVA) | payer MEDICARE, BC, SELFPAY | PROVIDERS: PCP Internal Medicine; Visit Provider Internal Medicine Medical Oncology | DX: I48.20 Chronic atrial fibrillation, unspecified (principal); Z79.01 Long term (current) use of anticoagulants; Z51.81 Encounter for therapeutic drug level monitoring | CPT/HCPCS: 85610; 99211 ==

== ENCOUNTER 2024-07-26 09:22 | Outpatient (AMB) | payer MEDICARE, BC, SELFPAY ==
--- OUTSIDE RECORDS SUMMARY | 2024-06-18 11:30 | XMS_ITS ---
Author [facility] Address [address] [place] [address] Care Team Providers Care Office Assistant Receptionist Name Role Phone Eduardo Rutledge Primary Care Provider [phone] Laurie Dee [phone] Cool Encounters Encounter Location Date Provider Diagnosis [address] [address] 06/18/2024 Laurie Dee Plan Of Treatment Next Appt Details Provider Name:Laurie weiner, 09/03/2024 02:00:00 PM, [address] [place] [address], [phone], Progress Notes * Anshul SANCHEZOB:1950 (73 yo M)Acc No.[id number]:06/18/2024 Progress Note Patient: Lenny ROMAN Provider: Jason Dee DPM :1950 A ge:73 Y S ex:Male Date:06/18/2024 Address:[address] [place] [address] [id number] Pcp:Eduardo Rutledge Subjective: * Chief Complaints: * [...] 06/18/2024 Generated for Francisco johnson/Reg/Florentino on: 0 07/26/2024 10:02 AM EDT
[2024-07-26 09:28] LABS: Prothrombin Time Whole Bld POC 26.9 sec (11.1-13.5); ~PT, ~INR - Anti Coag Clinic 2.2 (0.9-1.1)
--- NOTE | 2024-07-26 09:29 | MHC.OFFVISCO ---
Intake Intake Visit Reasons: Anticoagulation Allergies penicillamine Adverse Reaction (Unknown, Verified 07/26/24 09:23) nausea,vomiting Medication List - Last Reconciled 07/26/24 by Nasima Nava, RN ascorbic acid (vitamin C) 1 tab PO DAILY B-complex with vitamin C (Vitamin B Complex C W/B-12) 1 cap PO DAILY digoxin 125 mcg PO DAILY gabapentin PO metoprolol succinate ER 50 mg PO DAILY trazodone 50 mg PO BEDTIME PRN vitamin A palmitate 1 cap PO DAILY vitamin E acetate 1 cap PO DAILY warfarin 5 mg See Protocol PO DAILY Nursing Note INR: 2.2 in therapeutic range of 2-3 Medications and supplements reviewed No changes in health, diet, medications, or supplements, Denies any signs and symptoms of bleeding or bruising or clotting. Bleeding, bruising, clotting discussed Nutritional guidance given to have a serving of foods that raise the INR. Pt to have strawberries. 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
== END 2024-07-26 09:37 | disposition home or self-care (01) ==
LOC: HO.ACS 09:22
PROVIDERS: PCP Internal Medicine; Visit Provider Internal Medicine Medical Oncology
DX: Z79.01 Long term (current) use of anticoagulants (principal)

== ENCOUNTER → 2024-07-26 09:22 | Outpatient (BNVA) | payer MEDICARE, BC, SELFPAY | PROVIDERS: PCP Internal Medicine; Visit Provider Internal Medicine Medical Oncology | DX: I48.20 Chronic atrial fibrillation, unspecified (principal); Z79.01 Long term (current) use of anticoagulants; Z51.81 Encounter for therapeutic drug level monitoring | CPT/HCPCS: 85610; 99211 ==

== ENCOUNTER 2024-08-09 14:54 | Outpatient (AMB) | payer MEDICARE, BC, SELFPAY ==
--- OUTSIDE RECORDS SUMMARY | 2024-06-18 11:30 | XMS_ITS ---
[facility] Address [address] [place] [address] Care Team Providers Care Professor Of Art Name Role Phone Eduardo Rutledge Primary Care Provider Laurie Dee [phone] Cool Encounters Encounter Location Date Provider Diagnosis [address] [address] 06/18/2024 Laurie Dee Plan Of Treatment Next Appt Details Provider Name:Laurie weiner, 09/03/2024 02:00:00 PM, [address] [place] [address], [phone], Progress Notes * Anshul SANCHEZOB:1950 (73 yo M)Acc No.[id number]:06/18/2024 Progress Note Patient: Lenny ROMAN Provider: Jason Dee DPM :1950 A ge:73 Y S ex:Male Date:06/18/2024 Address:[address] [place] [address] [id number] Pcp:Eduardo Rutledge Subjective: * Chief Complaints: * [...] DPM Date: 0 06/18/2024 Generated for Francisco johnson/Reg/Florentino on: 0 08/09/2024 02:57 PM EDT
[2024-08-09 14:59] VITALS: BP 106/70; PULSE 77; TEMP 36.2; O2SAT 99; BMI 24.4
--- NOTE | 2024-08-09 14:59 | A.OFFPC_ITS ---
Vital Signs 08/09/24 14:59 Height 6 ft 4 in Weight 200 lb 4 oz BMI 24.4 BP 106/70 Blood Pressure Location Rt brachial Position Sitting Pulse 77 Pulse Source Pulse Oximeter Temp 97.1 F Temp Source Temporal Artery Scan Pulse Oximetry (%) 99 Oxygen Delivery Method Room Air Intake Visit Reasons: CHF/ chronic a-fib Accompanied by: Spouse Allergies penicillamine Adverse Reaction (Unknown, Verified 08/30/24 09:19) nausea,vomiting Medication List - Last Reconciled 09/02/24 by SPENCER Macias ascorbic acid (vitamin C) 1 tab PO DAILY B-complex with vitamin C (Vitamin B Complex C W/B-12) 1 cap PO DAILY digoxin 125 mcg PO DAILY gabapentin PO metoprolol succinate ER 150 mg (1.5 x 100 mg) PO Q12H trazodone 50 mg PO BEDTIME PRN vitamin A palmitate 1 cap PO DAILY vitamin E acetate 1 cap PO DAILY warfarin 5 mg See Protocol PO DAILY Tobacco use date assessed: 08/09/24 Fall risk assessment: No Falls in past year Last assessed Fall Risk: 08/09/24 Dental Screening Dental Screen Date: 08/09/24 Did you have a dental visit in the last 12 months?: Yes Did you have a dental problem in the last 6 months where you did not have access to dental care?: No Was dental information given to patient?: Patient has dentist HPI CHF/ chronic a-fib HPI Details The patient is a 73-year-old male presenting for a routine follow-up visit to manage chronic conditions including atrial fibrillation, hypertension, and hyperlipidemia. The patient has a history of atrial fibrillation, which has been managed with metoprolol succinate. The dosage was increased to 150 mg twice daily due to worsening atrial fibrillation, aiming to strengthen the heart muscle. The patient expressed concerns about the increased pulse rate, which sometimes reaches 90 bpm, compared to previous readings of 60-70 bpm when on carvedilol. Hypertension has been a long-standing condition for the patient, previously managed with carvedilol for 14-15 years. The medication was switched to metoprolol succinate following a breast trimmer's recommendation. The patient's blood pressure is currently well-controlled with the new regimen. The patient also has hyperlipidemia, with latest lab results showing an LDL cholesterol level of 100 mg/dL, which is slightly above the target of less than 100 mg/dL. The total cholesterol level is 166 mg/dL, which is within the acceptable range. [facility] Medical History Myocardial infarction Congestive heart failure Chronic a-fib Surgical History History of permanent cardiac pacemaker placement Family History Mother No problems noted. Father No problems noted. Social History Housing: House Alcohol intake: never Patient Tobacco Use Status: Never used Tobacco e-Cigarette/Vaping Use: Never Used Second Hand Smoke Exposure: No service: No Current occupational status: retired Cognitive needs: No Hearing needs: No Vision needs: Yes (glasses) Questionnaire PHQ-9 Over the last 2 weeks, how often have you been bothered by any of the following problems? 1. Little interest or pleasure in doing things: not at all 2. Feeling down, depressed, or hopeless: not at all 3. Trouble falling or staying asleep, or sleeping too much: more than half the days 4. Feeling tired or having little energy: more than half the days 5. Poor appetite or overeating: several days 6. Feeling bad about yourself - or that you are a failure or have let yourself or your family down: not at all 7. Trouble concentrating on things, such as reading the newspaper or watching television: not at all 8. Moving or speaking so slowly that other people could have noticed. Or the opposite - being so fidgety or restless that you have been moving around a lot more than usual: several days 9. Thoughts that you would be better off or of hurting yourself in some way: not at all Total score: 6 Depression Screening Interpretation: Positive Depression Screening Done: Yes Source: Developed by Drs. Maninder Coker, Ashley Hernandez, Orlando Costello and colleagues, with an educational nicolette from [employer]. Thrive Questionnaire Date Thrive assessed: 03/14/24 I am a: Patient What is your living situation today?: I have a steady place to live Within the past 12 months, did the food you bought not last and you didn't have the money to get more?: Never true Within the past 12 months, did you worry whether your food would run out before you got money to buy more?: Never true Do you have trouble paying for medicines?: No Do you have trouble getting transportation to medical appointments?: No Do you have trouble paying your heating and electricity bill?: No Do you have trouble taking care of your child, family member or friend?: No Do you have trouble with day-to-day activities such as bathing, preparing meals, shopping, managing finances, etc.?: No Are you currently unemployed and looking for a job?: No Are you interested in more education?: No Please select the resources that you would like help with: None Currently or been in a relationship where the following occur: No concerns reported THRIVE Score: 0 AUDIT C Alcohol Use Questionnaire (AUDIT-C) 1. How often do you have a drink containing alcohol?: Never 3. How often do you have six or more drinks on one occasion?: Never Total Score: 0 TRISTIN-7 AMB Questionnaire TRISTIN-7 Date TRISTIN - 7 assessed: 03/14/24 Feeling nervous, anxious, or on edge: 2 = More than half the days Not being able to stop or control worryin = More than half the days Worrying too much about different things: 2 = More than half the days Trouble relaxin = More than half the days Being so restless that it is hard to sit still: 2 = More than half the days Becoming easily annoyed or irritable: 1 = Several days Feeling afraid as if something awful might happen: 1 = Several days Total TRISTIN-7 score (0-4 normal; 5-9 mild; 10-14 moderate; 15-21 severe): 12 Source: Developed by Drs. Maninder Coker, Ashley Hernandez, Orlando Costello and colleagues, with an educational nicolette from [employer]. Review of Systems Const Denies headache(s) Eyes Denies loss of vision ENT Denies vertigo, Denies dizziness, Denies headache(s) and Denies sore throat Card Denies chest pain, Denies leg edema and Denies lightheadedness Resp Denies cough, Denies hemoptysis and Denies wheezing GI Denies abdominal pain, Denies melena, Denies constipation, Denies diarrhea and Denies vomiting Denies dysuria, Denies urinary frequency and Denies urinary urgency Musc Denies arthralgias, Denies joint swelling, Denies numbness and Denies tingling Neuro Denies Abnormal speech present, Denies behavioral changes, Denies vertigo, Denies dizziness, Denies headache(s), Denies loss of vision, Denies memory loss, Denies numbness and Denies tingling Psych Denies anxiety, Denies behavioral changes, Denies depression, Denies memory loss and Denies panic attacks Mitchel/Lymph Denies easy bleeding and Denies easy bruising Aller/Immun Denies wheezing Physical exam (Primary Care) Vital Signs: Last Vital Signs Temp 97.1 F 08/09/24 14:59 Pulse 77 08/09/24 14:59 BP 106/70 08/09/24 14:59 Pulse Ox 99 08/09/24 14:59 Oxygen Delivery Method Room Air 08/09/24 14:59 BMI result Body Mass Index 24.4 Tobacco/Smoking Status: Tobacco use Status Tobacco use date assessed 08/09/24 08/09/24 15:04 Patient Tobacco Use Status Never used Tobacco 08/09/24 15:04 e-Cigarette/Vaping Use Never Used 08/09/24 15:04 PHQ-9: PHQ-9 Score PHQ-9: Total score 6 08/09/24 15:55 Depression Screening Interpretation: Positive Thrive Assessment: Date of Thrive Assessment Date Thrive assessed 03/14/24 08/09/24 15:04 Currently or been in a relationship where the following occur: No concerns reported Const General: healthy appearing, no acute distress, alert and awake Nutritional Appearance: well nourished Orientation/consciousness: oriented to person, oriented to place and oriented to time HENMT Ears: TM's normal bilaterally General nose exam: Normal nasal mucous membranes and turbinates present Eyes Conjunctivae: conjunctivae normal Sclerae: sclerae normal Pupils: Equal, round and reactive pupils present Neck Neck: Yes no lymphadenopathy and Yes no JVD Thyroid: Thyroid normal Carotids: no bruits Resp Effort & Inspection: normal respiratory effort and not tachypneic Auscultation: no crackles, no rales, no rhonchi and no wheezes Cardio Rate: regular rate Rhythm: regular rhythm Heart sounds: no murmurs and normal S1 and S2 GI Palpation (GI): Soft to palpation, nontender, no hepatomegaly and no splenomegaly Auscultation: normal bowel sounds Skin General skin exam: no rashes or lesions noted and dry skin Neuro General: oriented to person, oriented to place and oriented to time Cranial nerves: Yes Equal, round and reactive pupils present Speech: No Abnormal speech present Gait exam (Neuro): Normal gait present Motor exam (neuro): no tremor noted Extrem Right upper extremity: full ROM Left upper extremity: full ROM Right lower extremity: full ROM; no edema Left lower extremity: full ROM; no edema Psych Mental Status: mental status grossly normal Speech and movement: Normal speech and movement present Affect: normal affect Attitude: cooperative Thought process: Normal thought process present Results Reviewed Results Reviewed: Laboratory Tests 03/14/24 04/06/24 15:03 09:36 Sodium 138 Potassium 4.3 Chloride 106 Carbon Dioxide 26 Anion Gap 10 L BUN 23 H Creatinine 0.87 Estimated GFR > 60 Fasting Glucose 97 Calcium 9.1 Total Bilirubin 1.1 H AST 25 ALT 16 Alkaline Phosphatase 68 Total Protein 7.0 Albumin 3.7 Triglycerides 85 Cholesterol 166 LDL Cholesterol, Calc 100 H HDL Cholesterol 49 25-OH Vitamin D Total 48.7 TSH 0.92 Urine Color Dark Yellow Urine Appearance Clear Urine pH 5.5 Ur Specific Mchenry 1.020 Urine Protein Negative Urine Glucose (UA) Negative Urine Ketones Negative Urine Blood Negative Urine Nitrite Negative Ur Leukocyte Esterase Negative Coding Level of Care Code Est Pt Level 4 (04702) Diagnoses Chronic congestive heart failure, unspecified heart failure type I50.9 Heart failure type: unspecified Heart failure chronicity: chronic Chronic a-fib I48.20 Current use of anticoagulant therapy Z79.01 Insomnia, unspecified type G47.00 Insomnia type: unspecified Pure hypercholesterolemia E78.00 Hyperlipidemia type: pure hypercholesterolemia Hypertension, unspecified type I10 Hypertension type: unspecified Time Spent (min) 41 Assessment & Plan Assessment & Plan (1) Congestive heart failure: Code(s): I50.9 - Heart failure, unspecified Category: Medical Qualifiers: Heart failure type: unspecified Heart failure chronicity: chronic Qualified Code(s): I50.9 - Heart failure, unspecified (2) Chronic a-fib: Code(s): I48.20 - Chronic atrial fibrillation, unspecified Category: Medical (3) Current use of anticoagulant therapy: 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 (4) Insomnia: Code(s): G47.00 - Insomnia, unspecified Category: Medical Qualifiers: Insomnia type: unspecified Qualified Code(s): G47.00 - Insomnia, unspecified (5) HLD (hyperlipidemia): Code(s): E78.5 - Hyperlipidemia, unspecified Category: Medical Qualifiers: Hyperlipidemia type: pure hypercholesterolemia Qualified Code(s): E78.00 - Pure hypercholesterolemia, unspecified (6) HTN (hypertension): Code(s): I10 - Essential (primary) hypertension Category: Medical Qualifiers: Hypertension type: unspecified Qualified Code(s): I10 - Essential (primary) hypertension Plan The patient's atrial fibrillation is being managed with metoprolol succinate, which was increased to 150 mg twice daily to strengthen the heart muscle. The patient is advised to monitor pulse rate closely due to concerns about increased pulse rates reaching 90 bpm. Hypertension management continues with metoprolol succinate, and the patient's blood pressure is well-controlled. The patient should continue monitoring blood pressure regularly. For hyperlipidemia, the patient is advised to maintain cholesterol levels, with LDL at 100 mg/dL and total cholesterol at 166 mg/dL. Lifestyle modifications, including diet and exercise, should be emphasized to achieve target cholesterol levels. Patient was informed and verbally consented to the use of an ambient scribe for clinic note documentation during this visit. Orders: Orders Comprehensive [place]. Panel Fast 7 Months F41.9 - Anxiety disorder, unspecified, I50.9 - Heart failure, unspecified, I48.20 - Chronic atrial fibrillation, unspecified, Z79.01 - senior living (current) use of anticoagulants, G47.00 - Insomnia, unspecified, Z00.00 - Encounter for general adult medical examination without abnormal findings TSH reflex Free T4 7 Months F41.9 - Anxiety disorder, unspecified, I50.9 - Heart failure, unspecified, I48.20 - Chronic atrial fibrillation, unspecified, Z79.01 - senior living (current) use of anticoagulants, G47.00 - Insomnia, unspecified, Z00.00 - Encounter for general adult medical examination without abnormal findings UA CC w/rflx Micro + Cult 7 Months F41.9 - Anxiety disorder, unspecified, I50.9 - Heart failure, unspecified, I48.20 - Chronic atrial fibrillation, unspecified, Z79.01 - senior living (current) use of anticoagulants, G47.00 - Insomnia, unspecified, Z00.00 - Encounter for general adult medical examination without abnormal findings Vitamin D 25-OH Total 7 Months F41.9 - Anxiety disorder, unspecified, I50.9 - Heart failure, unspecified, I48.20 - Chronic atrial fibrillation, unspecified, Z79.01 - 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 (current) use of anticoagulants, G47.00 - Insomnia, unspecified, Z00.00 - Encounter for general adult medical examination without abnormal findings B Type Natriuretic Peptide 7 Months F41.9 - Anxiety disorder, unspecified, I50.9 - Heart failure, unspecified, I48.20 - Chronic atrial fibrillation, unspecified, Z79.01 - 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 (current) use of anticoagulants, G47.00 - Insomnia, unspecified, Z00.00 - Encounter for general adult medical examination without abnormal findings Complete Blood Count Auto Diff 7 Months F41.9 - Anxiety disorder, unspecified, I50.9 - Heart failure, unspecified, I48.20 - Chronic atrial fibrillation, unspecified, Z79.01 - senior living (current) use of anticoagulants, G47.00 - Insomnia, unspecified, Z00.00 - Encounter for general adult medical examination without abnormal findings Lipid Panel 7 Months F41.9 - Anxiety disorder, unspecified, I50.9 - Heart failu re, unspecified, I48.20 - Chronic atrial fibrillation, unspecified, Z79.01 - 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
== END 2024-08-09 16:04 | disposition home or self-care (01) ==
LOC: HO.HMCH 14:55
PROVIDERS: PCP Internal Medicine
DX: I50.9 Heart failure, unspecified (principal); I48.20 Chronic atrial fibrillation, unspecified; Z79.01 Long term (current) use of anticoagulants; G47.00 Insomnia, unspecified; E78.00 Pure hypercholesterolemia, unspecified; I10 Essential (primary) hypertension

== ENCOUNTER → 2024-08-09 14:54 | Outpatient (BNVA) | payer MEDICARE, BC, SELFPAY | PROVIDERS: PCP Internal Medicine | DX: I11.0 Hypertensive heart disease with heart failure (principal); I50.9 Heart failure, unspecified; I48.20 Chronic atrial fibrillation, unspecified; E78.00 Pure hypercholesterolemia, unspecified; G47.00 Insomnia, unspecified; Z79.01 Long term (current) use of anticoagulants | CPT/HCPCS: 99212 ==

== ENCOUNTER → 2024-08-30 09:05 | Outpatient (BNVA) | payer MEDICARE, BC, SELFPAY | PROVIDERS: PCP Internal Medicine; Visit Provider Internal Medicine Medical Oncology | DX: I48.20 Chronic atrial fibrillation, unspecified (principal); Z79.01 Long term (current) use of anticoagulants; Z51.81 Encounter for therapeutic drug level monitoring | CPT/HCPCS: 85610; 99211 ==

== ENCOUNTER 2024-09-27 09:03 | Outpatient (AMB) | payer MEDICARE, BC, SELFPAY ==
[2024-09-27 09:23] LABS: Prothrombin Time Whole Bld POC 34.5 sec (11.1-13.5); ~PT, ~INR - Anti Coag Clinic 2.9 (0.9-1.1)
--- NOTE | 2024-09-27 09:31 | MHC.OFFVISCO ---
Intake Intake Visit Reasons: Anticoagulation Allergies penicillamine Adverse Reaction (Unknown, Verified 09/27/24 09:06) nausea,vomiting Medication List - Last Reconciled 09/27/24 by Yulissa Cates RN ascorbic acid (vitamin C) 1 tab PO DAILY B-complex with vitamin C (Vitamin B Complex C W/B-12) 1 cap PO DAILY digoxin 125 mcg PO DAILY gabapentin PO metoprolol succinate ER 150 mg (1.5 x 100 mg) PO Q12H trazodone 50 mg PO BEDTIME PRN vitamin A palmitate 1 cap PO DAILY vitamin E acetate 1 cap PO DAILY warfarin 5 mg See Protocol PO DAILY Nursing Note INR: 2.9 in therapeutic range Medications and supplements reviewed and updated - supplements he has taken for years No changes in health, diet, medications, or supplements, Denies any signs and symptoms of bleeding or bruising or clotting. Bleeding, bruising, clotting discussed Nutritional guidance given Dose: 2.5mg x 1 day/ 5mg x 6 days F/U INR: 1 month Patient verbalizes understanding of instructions given Anti-Coag Initial Assessment Social Hx Patient Tobacco Use Status: Never used Tobacco alcohol intake: never Coding Level of Care Code Est Patient Level 1 Diagnoses Current use of anticoagulant therapy Z79.01 Assessment & Plan Assessment & Plan (1) Current use of anticoagulant therapy: Code(s): Z79.01 - FDC (current) use of 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 Medications: New [magnesium] PO [ARJUNA] PO [glucoasamine sulfate] PO [N-acetyl cysteine (NAC)] PO [ZINC] PO
--- OUTSIDE RECORDS SUMMARY | 2024-09-27 10:05 | XMS_ITS | Encounter Summary ---
Author Organization [facility] Address [address] [address] [place] [address] Phone Care Team Providers Care Television Camera Operator Name Role Phone Eduardo Rutledge MD Primary Care Provid er Encounter Details Date Type Department Care Team (Late st Contact Info) Description 06/08/2023 Procedure [place] [facility] [place] [address], [address] [place] [address] Social History Tobacco Use Types Packs/Day Years [facility] [address], [address] [place] [address] 08/16/2024 Procedure Pass [facility] [address], [address] [place] [address] 08/16/2024 Procedure Pass [facility] [address], [address] [place] [address] 11/06/2024 9:30 AM EDT Appointment [facility] [address], [address] [place] [address] Sumit Toledo MD, PhD [address] [place] [id number] [email or web address] 11/09/2024 2:00 PM EDT Appointment [facility] [place] [address], 5th [address], [address] [place] [address] Sumit Toledo MD, PhD [address] [place] [id number] [email or web address] 11/09/2024 2:30 PM EDT Office Visit [facility] [address] [facility] [address]th [address], [address] [place] [address] Sumit Toledo MD, PhD [address] [place] [id number] [email or web address] 11/09/2024 3:00 PM EDT Office Visit [facility] [place] [facility] [place] [address] [facility] 5th [address], [address] [place] [address] Tal Stanley MD [address] [facility] [address] [place] [address] [email or web address] 02/05/2025 8:00 AM EST Appointment [facility] [place] [place] [address] [facility], [address] [place] [address] Sumit Toledo MD, PhD [address] [facility] [place] [address] [email or web address] 05/07/2025 8:00 AM EDT Appointment [facility] [address], [address] [place] [address] Sumit Toledo MD, PhD [address] [place], [place] [address] [id number] [email or web address] documented as of this encounter Visit Diagnoses Not on filedocumented in this encounter Additional Health Concerns Infection Onset Date Last Indicated Resolved Time CoV-Risk 02/10/2024 02/10/2024 02/21/2024 1:22 AM EST RSV 02/10/2024 02/10/2024 02/17/2024 1:25 AM EST documented as of this encounter Care Teams Television Camera Operator Relationship Specialty Start Date End Date Eduardo Rutledge MD [address] [place] [id number] PCP - General Internal Medicine 06/19/18 documented as of this encounter Additional Source Comments The information contained in this document represents components of the legal health record. It is not the complete legal health record.[facility]
--- OUTSIDE RECORDS SUMMARY | 2024-09-27 10:06 | XMS_ITS | Patient Health Record ---
Author Organization [facility] [place] Address [address] [place] [address] Care Team Providers Care Solar Energy Engineer Name Role Phone Eduardo Rutledge Primary Care Provider Laurie eDe Unavailable [phone] Allergies Allergen (clinical drug ingredient) Drug/Non Drug Allergy documented on EMR Reaction Allergy Type Onset Date Status Penicillin Unknown Drug Allergy Active Reason For Referral No Information Medications Medication SIG (Take, Route, Fr equency, Duration) Notes Start Date End Date Status Custom Orthotics 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 to hallux limitus and aquired hallux estensus 09/03/2024 Active Carvedilol Active Digoxin Active Warfarin Sodium Acti ve traZODone HCl 50 MG TAKE 1 TABLET ORALLY BEDTIME NEEDED FOR SLEEP Oral; Duration: 90 Days Active Social History Tobacco Use: [...] ast year? No Points 0 Interpretation Negative Vital Signs Blood pressure diastolic 88 mm Hg 09/03/2024 Height 6ft 3in in 09/03/2024 Blood pressure systolic 120 mm Hg 09/03/2024 Weight 194 lbs 09/03/2024 BMI 24.25 kg/m2 09/03/2024 Encounters Encounter Location Date Provider Diagnosis [address] [address] 03/28/2024 Laurie Dee Neuropathic ulcer of right [...] lesser toe, left M19.072 and Neuropathy G62.[address] [address] 04/30/2024 Laurie Dee Neuropathic ulcer of right foot, limited to breakdown of skin L97.511 ; Other hammer toe(s) (acquired), right foot M20.41 and Neuropathy G62.[address] [address] 09/03/2024 Laurie Dee Other hammer toe(s) (acquired), right foot M20.41 ; Hallux limitus of right foot M20.5X1 ; Neuropathic ulcer of right foot with fat layer exposed L97.512 ; Arthritis of joint of lesser toe, right M19.071 and Neuropathy G62.[address] [address] 01/10/2024 Laurie Dee [address] [address] 03/19/2024 Laurie Dee [address] [address] 04/30/2024 Laurie Dee Assessments Encounter Date Diagnosis (ICD Code) Assessment Notes Treatment Notes Treatment Clinical Notes Section Notes 03/28/2024 Other hammer toe(s) (acquired), right foot (ICD-10 - M20.41) 03/28/2024 Neuropathic ulcer of right foot with fat layer exposed (ICD-10 - L97.512) Response to treatment Patient Educated with: WOUND CARE INSTRUCTIONS. pdf (WOUND CARE INSTRUCTIONS. pdf) 04/30/2024 Neuropathic ulcer of right foot, limited to breakdown of skin (ICD-10 - L97.511) Response to treatment - Unresolved Patient Educated with: WOUND CARE INSTRUCTIONS. pdf (WOUND CARE INSTRUCTIONS. pdf) 09/03/2024 Other hammer toe(s) (acquired), right foot (ICD-10 - M20.41) 09/03/2024 Hallux limitus of right foot (ICD-10 - M20.5X1) 04/30/2024 Other hammer toe(s) (acquired), right foot (ICD-10 - M20.41) 04/30/2024 Neuropathy (ICD-10 - G62.9) 09/03/2024 Neuropathic ulcer of right foot with fat layer exposed (ICD-10 - L97.512) Response to treatment Resistant to previous conservative treatment Patient Educated with: WOUND CARE INSTRUCTIONS. pdf (WOUND CARE INSTRUCTIONS. pdf) 03/28/2024 Pain in right toe(s) (ICD-10 - M79.674) 03/28/2024 Onychomycosis (ICD-10 - B35.1) 09/03/2024 Arthritis of joint of lesser toe, right (ICD-10 - M19.071) 09/03/2024 Neuropathy (ICD-10 - G62.9) 03/28/2024 Pain in left toe(s) (ICD-10 - [...] 03/28/2024 Next Appt Details Provider Name:Laurie weiner, 10/15/2024 01:45:00 PM, [address] [facility], [place], [address], Insurance Providers Payer Name Payer Address Payer Phone Subscriber Number Group Number Insured Name Patient Relationship to Insured Coverage Start Date Coverage End Date Medicare [employer] [address] [place] [address] [id number] Lenny Caruso Self - patient is the insured [address] [place] [address] [address] [place] [address] [id number] Lenny Caruso Self - patient is the insured Medical (General) History Medical History History ICD Code Covid 19 Heart Disease Measle Mumps Chicken Pox A fib ICD Device Surgical History Surgery Date(Month/Year) ICD Battery Replacement 2020
== END 2024-09-27 09:33 | disposition home or self-care (01) ==
LOC: HO.ACS 09:03
PROVIDERS: PCP Internal Medicine; Visit Provider Internal Medicine Medical Oncology
DX: Z79.01 Long term (current) use of anticoagulants (principal)

== ENCOUNTER → 2024-09-27 09:03 | Outpatient (BNVA) | payer MEDICARE, BC, SELFPAY | PROVIDERS: PCP Internal Medicine; Visit Provider Internal Medicine Medical Oncology | DX: Z51.81 Encounter for therapeutic drug level monitoring (principal); Z79.01 Long term (current) use of anticoagulants | CPT/HCPCS: 85610; 99211 ==

== ENCOUNTER 2024-10-25 09:23 | Outpatient (AMB) | payer MEDICARE, BC, SELFPAY ==
--- OUTSIDE RECORDS SUMMARY | 2015-07-22 14:44 | XMS_ITS | Encounter Summary ---
Author Organization [facility] Address [facility] [employer] [facility] [address] [place] [address] Phone Care Team Providers Care Merchant Mill Utility Worker Name Role Phone Valeriano Douglas MD Primary Care Provider [phone] Encounter Details Date Type Department Care Team (Late st Contact Info) Description 07/22/2015 2:44 PM EDT Hospital En[place] [facility] [place] [facility] 55 [facility], Floor 1, Room [address] [place] [address] Sumit Toledo MD, PhD 55 [facility] [address] [place] [address] [email or web address] Social History Tobacco Use Types Packs/Day Years [...] st Contact Info) Description 07/09/2024 Procedure Pass [facility] 55 [facility], [address] [place] [address] 08/16/2024 Procedure Pass [facility] 55 [facility], [address] [place] [address] 10/05/2024 Procedure Pass [facility] 55 [facility], [address] [place] [address] 10/05/2024 Procedure Pass [facility] 55 [facility], [address] [place] [address] 11/06/2024 9:30 AM EDT Appointment [facility] 55 [facility], [address] [place] [address] Sumit Toledo MD, PhD [address] [place] [phone] [email or web address] 11/09/2024 2:00 PM EDT Appointment [facility] EP 32 [facility], 5th Floor, [address] [place] [address] Sumit Toledo MD, PhD [address] [place] [phone] [email or web address] 11/09/2024 2:30 PM EDT Office Visit [facility]iac Arrhythmia Service 32 [facility], 5th Floor, [address] [place] [address] Sumit Toledo MD, PhD [address] [place], [place] [address] [address] [email or web address] 11/09/2024 3:00 PM EDT Office Visit [facility] Heart Failure & Transplantation 32 [facility], 5th Floor, [address] [place] [address] Tal Stanley MD [address] [address] [email or web address] 02/05/2025 8:00 AM EST Appointment [facility] 55 [facility], [address] [place] [address] Sumit Toledo MD, PhD [address] [place] [address] [email or web address] 05/07/2025 8:00 AM EDT Appointment [facility] 55 [facility], [address] [place] [address] Sumit Toledo MD, PhD [address] [place] [phone] [email or web address] Pending Results Name Type Priority Associated [...] documented as of this encounter Care Teams Merchant Mill Utility Worker Relationship Specialty Start Date End Date Valeriano Douglas MD [address] [address] PCP - General 08/07/13 02/27/17 documented as of this encounter Additional Source Comments The information contained in this document represents components of the legal health record. It is not the complete legal health record.[facility]
--- OUTSIDE RECORDS SUMMARY | 2015-07-25 15:15 | XMS_ITS | Encounter Summary ---
Author Organization [facility] Address [facility] [employer] [facility] [address] [place] [address] Phone Care Team Providers Care Administration Clerk Name Role Phone Valeriano Douglas MD Primary Care Provider [phone] [phone] Encounter Details Date Type Department Care Team (Late st Contact Info) Description 07/25/2015 3:15 PM EDT Hospital Encounter [facility] EP Pacer Lab 55 [facility], Floor 1, Room [address] [place] [address] Clint Toledo MD, PhD 55 [facility] [address] [place] [address] [email or web address] Social History Tobacco Use Types Packs/Day [...] st Contact Info) Description 07/09/2024 Procedure Pass [facility] Cardiology Division 55 [facility], [address] [place] [address] 08/16/2024 Procedure Pass [facility] Cardiology Division 55 [facility], [address] [place] [address] 10/05/2024 Procedure Pass [facility] Cardiology Division 55 [facility], [address] [place] [address] 10/05/2024 Procedure Pass [facility] Cardiology Division 55 [facility], [address] [place] [address] 11/06/2024 9:30 AM EDT Appointment [facility] Cardiology Division 55 [facility], [address] [place] [address] Clint Toledo MD, PhD [address] [place] [address] [email or web address] 11/09/2024 2:00 PM EDT Appointment [facility] Cardiac EP 32 [facility], 5th Floor, [address] [place] [address] Clint Toledo MD, PhD [address] [place] [address] [email or web address] 11/09/2024 2:30 PM EDT Office Visit [facility] Cardiac Arrhythmia Service 32 [facility], 5th Floor, [address] [place] [address] Clint Toledo MD, PhD [address] [place], [place] [address] [address] [email or web address] 11/09/2024 3:00 PM EDT Office Visit [facility] Heart Failure & Transplantation 32 [facility], 5th Floor, [address] [place] [address] Tal Stanley MD [address] [address] [email or web address] 02/05/2025 8:00 AM EST Appointment [facility] Cardiology Division 55 [facility], [address] [place] [address] Clint Toledo MD, PhD [address] [place] [address] [email or web address] 05/07/2025 8:00 AM EDT Appointment [facility] Cardiology Division 55 [facility], [address] [place] [address] Clint Toledo MD, PhD [address] [place] [address] [email or web address] documented as of this encounter Procedures Procedure Name Priority Date/Time Associated Diagnosis Comments EP DEVICE CHECK / FOLLOW UP Routine 07/25/2015 3:15 PM EDT Cardiac arrhythmia, unspecified cardiac arrhythmia type Cardiomyopathy Persistent atrial fibrillation Presence of automatic implantable cardioverter-defibri llator documented in this encounter Results * EP Device Check / Follow Up (07/25/2015 3:15 PM EDT) 07/25/2015 3:15 AM EDT Narrative [facility] - 07/29/2015 4:25 PM EDT FINAL IMPLANTABLE DEVICE FOLLOW-UP REPORT PATIENT NAME: ANDREW SANCHEZ Age: 64 : 1950 Initial Implant Date: 06/20/2013 Follow-Up Date/Time: 07/25/2015 02:00:00 PM Nurse: Marychuy Reese R.N. EP Design Tech: DAYSI FAITH MD Referring MD: CLINT TOLEDO [...] Implant Device: Biv icd Date Implanted: 06/20/2013 Garnett Machine Operator Helper: [employer] Model Name: AMADO BUSH Model Number: [id number] Serial No: [id number] Mode: Ssir Location: Left upper chest LEAD DATA: Date Implanted: 06/20/2013 06/20/2013 Active: Active Active Garnett Machine Operator Helper: St. Alex [employer] Alex Model Name: APRIL BETANCUR Model Number: 7122Q-65 [id number] Serial No: [id number] Polarity: Bipolar Bipolar Fixation/Type: Screw-in Tined Lead [...] Bradycardia and Tachycardia Episodes Since Counters Cleared FREIGHT CAR CLEANER(%): 48 VS(%): 8 Counters VHR Detections: 10 Heart Rate Histogram Distribution: Good Programming Comments (10) VT detects. Stored available EGM's shows AF with vent rates @ 176-180 bpm. The longest episode lasted 12 secs on May 28, 2015 Pt is on Warfarin as noted in School Age Lead Teacher. FREIGHT CAR CLEANER-48%, VSt-45%. Presenting rhythm: BiV paced with intermittent [...] Interrogation completed by: Marychuy Reese R.N. EP Design Tech: DAYSI FAITH MD This report has been electronically signed by Daysi Faith Procedure Note Vianney Tavarez MD - 07/29/2015 FINAL IMPLANTABLE DEVICE FOLLOW-UP REPORT PATIENT NAME: ANDREW SANCHEZ Age: 64 : 1950 Initial Implant Date: 06/20/2013 Follow-Up Date/Time: 07/25/2015 02:00:00 PM Nurse: Marychuy Reese R.N. EP Design Tech: DAYSI FAITH MD Referring MD: CLINT TOLEDO [...] Implant Device: Biv icd Date Implanted: 06/20/2013 Garnett Machine Operator Helper: [employer] Model Name: DISHADRA BUSH Model Number: [id number] Serial No: [id number] Mode: Ssir Location: Left upper chest LEAD DATA: Date Implanted: 06/20/2013 06/20/2013 Active: Active Active Garnett Machine Operator Helper: St. Alex St[employer] Alex Model Name: APRIL GAUTHIERCHU Model Number: [id number]-65 [id number] Serial No: [id number] Polarity: Bipolar Bipolar Fixation/Type: Screw-in Tined Lead [...] Bradycardia and Tachycardia Episodes Since Counters Cleared FREIGHT CAR CLEANER(%): 48 VS(%): 8 Counters VHR Detections: 10 Heart Rate Histogram Distribution: Good Programming Comments (10) VT detects. Stored available EGM's shows AF with vent rates @ 176-180bpm. The longest episode lasted 12 secs on May 28, 2015 Pt is on Warfarin asnoted in School Age Lead Teacher. FREIGHT CAR CLEANER-48%, VSt-45%. Presenting rhythm: BiV paced withintermittent VStrigger pacing @ 70 bpm. Intrinsic rhythm: AF/VS w/vent rates @ 70-100bpm. HR histograms with good distribution w/rates primarily 50-130 bpm. All ICD measurements are stable. All findings were verbally communicated to Lu Zepeda MD. Pt is scheduled to transmit in November and RTC in March. Next Follow-Up 4 Interrogation completed by: Marychuy Reese R.NSimeon EP Design Tech: DAYSI FAITH MD This report has been electronically signed by Daysi Faith Clint Toledo MD, PhD CV CARDIAC [facility] Final Result [facility] RAD [address] [place] [place] [address] documented in this encounter Visit Diagnoses Diagnosis Cardiac arrhythmia, unspecified cardiac arrhythmia type Cardiomyopathy Other primary cardiomyopathies Persistent atrial fibrillation Atrial fibrillation Presence of automatic implantable cardioverter-defibrillator documented in this encounter Additional Health Concerns Infection Onset Date Last Indicated Resolved Time CoV-Risk 02/10/2024 02/10/2024 02/21/2024 1:22 AM EST RSV 02/10/2024 02/10/2024 02/17/2024 1:25 AM EST documented as of this encounter Care Teams Administration Clerk Relationship Specialty Start Date End Date Valeriano Douglas MD [address] [address] PCP - General 08/07/13 02/27/17 documented as of this encounter Additional Source Comments The information contained in this document represents components of the legal health record. It is not the complete legal health record.[facility]
--- OUTSIDE RECORDS SUMMARY | 2015-10-22 15:54 | XMS_ITS | Encounter Summary ---
Author Organization [facility] Address [facility] [employer] [facility] [address] [place] [address] Phone Care Team Providers Care Roof Cement And Paint Maker Helper Name Role Phone Valeriano Douglas MD Primary Care Provider [phone] Encounter Details Date Type Department Care Team (Late st Contact Info) Description 10/22/2015 3:54 PM EDT Hospital Encounter [facility] EP Pacer Lab 55 [facility], Floor 1, [address] [place] [address] Sumit Toledo MD, PhD [address] [facility] [address] [place] [address] [email or web address] .[email or web address] Social History Tobacco Use Types Packs/Day [...] st Contact Info) Description 07/09/2024 Procedure Pass [facility] Cardiology Division [address] [facility], [address] [place] [address] 08/16/2024 Procedure Pass [facility] Cardiology Division 55 [facility], [address] [place] [address] 10/05/2024 Procedure Pass [facility] Cardiology Division 55 [facility], [address] [place] [address] 10/05/2024 Procedure Pass [facility] Cardiology Division 55 [facility], [address] [place] [address] 11/06/2024 9:30 AM EDT Appointment [facility] Cardiology Division 55 [facility], [address] [place] [address] Sumit Toledo MD, PhD [address] [place] [address] [email or web address] 11/09/2024 2:00 PM EDT Appointment [facility] Cardiac EP 32 [facility], 5th Floor, [address] [place] [address] Sumit Toledo MD, PhD [address] [place] [address] [email or web address] 11/09/2024 2:30 PM EDT Office Visit [facility] Cardiac Arrhythmia Service 32 [facility], 5th Floor, [address] [place] [address] Sumit Toledo MD, PhD [address] [place] [address] [email or web address] 11/09/2024 3:00 PM EDT Office Visit [facility] Heart Failure & Transplantation 32 [facility], 5th Floor, [address] [place] [address] Tal Stanley MD [address] [address] [email or web address] 02/05/2025 8:00 AM EST Appointment [facility] Cardiology Division 55 [facility], [address] [place] [address] Sumit Toledo MD, PhD [address] [place] [address] [email or web address] 05/07/2025 8:00 AM EDT Appointment [facility] Cardiology Division [address] [facility], [address] [place] [address] Sumit Toledo MD, PhD [address] [place] [address] [email or web address] Pending Results Name Type Priority Associated Diagnoses [...] documented as of this encounter Care Teams Roof Cement And Paint Maker Helper Relationship Specialty Start Date End Date Valeriano Douglas MD [address] [address] PCP - General 08/07/13 02/27/17 documented as of this encounter Additional Source Comments The information contained in this document represents components of the legal health record. It is not the complete legal health record.[facility]
--- OUTSIDE RECORDS SUMMARY | 2016-02-11 13:11 | XMS_ITS | Encounter Summary ---
Author Organization [facility] Address [facility] [address] [place] [phone] Phone Care Team Providers Care Chief Media Officer Name Role Phone Valeirano Douglas MD Primary Care Provider [phone] Encounter Details Date Type Department Care Team (Late st Contact Info) Description 02/11/2016 12:11 PM EST Hospital Encounter [facility] EP Pacer Lab [address] [facility], Floor 1, Room [address] [place] [address] Clint Toledo MD, PhD [address] [facility] [address] [place] [address] [email or web address] Social History Tobacco Use Types Packs/Day [...] st Contact Info) Description 07/09/2024 Procedure Pass [facility] Cardiology Division [address] [facility], [address] [place] [address] 08/16/2024 Procedure Pass [facility] Cardiology Division [address] [facility], [address] [place] [address] 10/05/2024 Procedure Pass [facility] Cardiology Division [address] [facility], [address] [place] [address] 10/05/2024 Procedure Pass [facility] Cardiology Division [address] [facility], [address] [place] [address] 11/06/2024 9:30 AM EDT Appointment [facility] Cardiology Division [address] [facility], [address] [place] [address] Clint Toledo MD, PhD [address] [place] [id number] [email or web address] 11/09/2024 2:00 PM EDT Appointment [facility] Cardiac EP [address] [facility], 5th Floor, [address] [place] [address] Clint Toledo MD, PhD [address] [place] [phone] [email or web address] 11/09/2024 2:30 PM EDT Office Visit [facility] Cardiac Arrhythmia Service [address] [facility], 5th Floor, [address] [place] [address] Clint Toledo MD, PhD [address] [place] [id number] [email or web address] 11/09/2024 3:00 PM EDT Office Visit [facility] Heart Failure & Transplantation [address] [facility], 5th Floor, [address] [place] [address] Tal Stanley MD [address] [address] [email or web address] 02/05/2025 8:00 AM EST Appointment [facility] Cardiology Division [address] [facility], [address] [place] [address] Clint Toledo MD, PhD [address] [place] [address] [email or web address] 05/07/2025 8:00 AM EDT Appointment [facility] Cardiology Division [address] [facility], [address] [place] [address] Clint Toledo MD, PhD [address] [place] [phone] [email or web address] documented as of this encounter Procedures Procedure Name Priority Date/Time Associated Diagnosis Comments EP DEVICE CHECK / FOLLOW UP Routine 02/11/2016 12:11 PM EST Cardiac arrhythmia, unspecified cardiac arrhythmia type Cardiomyopathy Persistent atrial fibrillation Automatic implantable cardioverter-defibri llator in situ documented in this encounter Results * EP Device Check / Follow Up (02/11/2016 12:11 PM EST) 02/11/2016 12:1 1 PM EST Narrative C RAD - 03/17/2016 4:12 PM EST FINAL IMPLANTABLE DEVICE FOLLOW-UP REPORT PATIENT NAME: ANDREW SANCHEZ Age: 65 : 1950 Initial Implant Date: 06/20/2013 Follow-Up Date/Time: 02/13/2016 02:00:00 PM Nurse: Marychuy Reese R.N. EP Crown Wheel Assembler: CLAUDY DOAN MD Referring MD: CLINT TOLEDO Visit Type: [...] Implant Device: Biv icd Date Implanted: 06/20/2013 Assorter: [employer] Model Name: AMADO BUSH Model Number: [id number] Serial No: [id number] Mode: Ssir Location: Left upper chest LEAD DATA: Date Implanted: 06/20/2013 06/20/2013 Active: Active Active Assorter: [employer] Alex Model Name: APRIL BETANCUR Model Number: [id number]-65 [id number] Serial No: [id number] Polarity: Bipolar Bipolar Fixation/Type: Screw-in Tined Lead [...] Bradycardia and Tachycardia Episodes Since Counters Cleared LINE PAINTING MACHINE OPERATOR(%): 54 Counters Heart Rate Histogram Distribution: Good Programming Comments No VT/VF detects. 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 BiVP- 54% increased from 48% snce 07/25/15, VSt-36%. Presenting rhythm: BiV paced @ 70 bpm with intermittent VStrigger pacing. Intrinsic rhythm: AF/VS w/vent rates @ 70-100 bpm. HR histograms with good distribution w/rates primarily 70-130 bpm with few binned rates from 130-220 bpm range. All ICD measurements are WNL. Pts device is on the Advisory Alert. Waylon Peoples, Rep reviewed information [...] Interrogation completed by: Marychuy Reese R.N. EP Crown Wheel Assembler: CLAUDY DOAN MD This report has been electronically signed by Claudy Doan Procedure Note Yasmin Loco MD, PhD - 03/17/2016 FINAL IMPLANTABLE DEVICE FOLLOW-UP REPORT PATIENT NAME: ANDREW SANCHEZ Age: 65 : 1950 Initial Implant Date: 06/20/2013 Follow-Up Date/Time: 02/13/2016 02:00:00 PM Nurse: Marychuy Reese R.N. EP Crown Wheel Assembler: CLAUDY DOAN MD Referring MD: CLINT TOLEDO Visit Type: [...] Implant Device: Biv icd Date Implanted: 06/20/2013 Assorter: [employer] Model Name: AMADO BUSH Model Number: [id number] Serial No: [id number] Mode: Ssir Location: Left upper chest LEAD DATA: Date Implanted: 06/20/2013 06/20/2013 Active: Active Active Assorter: [employer]. Alex [employer] Alex Model Name: APRIL BETANCUR Model Number: [id number] Serial No: [id number] Polarity: Bipolar Bipolar Fixation/Type: Screw-in Tined Lead [...] Bradycardia and Tachycardia Episodes Since Counters Cleared LINE PAINTING MACHINE OPERATOR(%): 54 Counters Heart Rate Histogram Distribution: Good Programming Comments No VT/VF detects. 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 Presenting rhythm: BiV paced@ 70 bpm with intermittent VStrigger pacing. Intrinsic rhythm: AF/VS w/ventrates @ 70-100 bpm. HR histograms with good distribution w/rates primarily 70-130bpm with few binned rates from 130-220 bpm range. All ICD measurements areWNL. Pts device is on the Advisory Alert. Waylon Peoples, Rep reviewedinformation and answered questions. Arthur remote monitoring confirmed. Vibratoryalert was progammed from 6 secs to 16 secs. Vibratory alert was demonstrated andconfirmed by the pt. All findings were verbally communicated to Annelise Campoverde NP whois seeing the pt today. Pt is scheduled to transmit in May and RTC inJuly. Next Follow-Up 4 months Interrogation completed by: Marychuy Reese, R.N. EP Crown Wheel Assembler: CLAUDY DOAN MD This report has been electronically signed by Claudy Doan Clint Toledo MD, PhD [facility] ORDERA BLES Final Result [facility] [address] [facility] [place] [address] documented in this encounter Visit Diagnoses Diagnosis Cardiac arrhythmia, unspecified cardiac arrhythmia type Cardiomyopathy Other primary cardiomyopathies Persistent atrial fibrillation Atrial fibrillation Automatic implantable cardioverter-defibrillator in situ documented in this encounter Additional Health Concerns Infection Onset Date Last Indicated Resolved Time CoV-Risk 02/10/2024 02/10/2024 02/21/2024 1:22 AM EST RSV 02/10/2024 02/10/2024 02/17/2024 1:25 AM EST documented as of this encounter Care Teams Chief Media Officer Relationship Specialty Start Date End Date Valeriano Douglas MD [address] [address] PCP - General 08/07/13 02/27/17 documented as of this encounter Additional Source Comments The information contained in this document represents components of the legal health record. It is not the complete legal health record.[facility]
--- OUTSIDE RECORDS SUMMARY | 2024-02-06 10:27 | XMS_ITS | Encounter Summary ---
Author Organization [facility] Address [facility] [address] [place] [address] Phone Care Team Providers Care [employer] Ground Operations Supervisor Name Role Phone Eduardo Rutledge MD Primary Care Provid er Encounter Details Date Type Department Care Team (Late st Contact Info) Description 02/06/2024 9:27 AM EST Hospital Encounter [facility] Cardiology Division [address] [place] [address], [address] [place] [address] Sumit Toledo MD, PhD [address] [place] [address]-1[address]109 [place] [address] [email or web address] Social History Tobacco Use Types [...] st Contact Info) Description 07/09/2024 Procedure Pass [facility] Cardiology Division [address] [facility], [address] [place] [address] 08/16/2024 Procedure Pass [facility] Cardiology Division [address] [facility], [address] [place] [address] 10/05/2024 Procedure Pass [facility] Cardiology Division [address] [facility], [address] [place] [address] 10/05/2024 Procedure Pass [facility] Cardiology Division [address] [facility], [address] [place] [address] 11/06/2024 9:30 AM EDT Appointment [facility] Cardiology Division [address] [facility], [address] [place] [address] Sumit Toledo MD, PhD [address] [place] [phone] [email or web address] 11/09/2024 2:00 PM EDT Appointment [facility] Cardiac EP [address] [facility], 5th Floor, [address] [place] [address] Sumit Toledo MD, PhD [address] [place] [phone] [email or web address] 11/09/2024 2:30 PM EDT Office Visit [facility] Cardiac Arrhythmia Service [address] [facility], 5th Floor, [address] [place] [address] Sumit Toledo MD, PhD [address] [facility] [place] [address] [email or web address] 11/09/2024 3:00 PM EDT Office Visit [facility] Heart Failure & Transplantation [address] [facility], 5th Floor, [address] [place] [address] Tal Stanley MD [address] [address] [email or web address] 02/05/2025 8:00 AM EST Appointment [facility] Cardiology Division [address] [facility], [address] [place] [address] Sumit Toledo MD, PhD [address] [place] [phone] [email or web address] 05/07/2025 8:00 AM EDT Appointment [facility] Cardiology Division [address] [facility], [address] [place] [address] Sumit Toledo MD, PhD [address] [place] [phone] [email or web address] documented as of this encounter Procedures Procedure Name Priority Date/Time Associated Diagnosis Comments CIED ALERT Routine 02/05/2024 2:00 AM EST Presence of cardiac defibrillator documented in this encounter Results * CIED ALERT (02/05/2024 2:00 AM EST) Date Time Interrogation Session [id number] [employer] Implantable Pulse Generator Basket Assembler [facility] Implantable Pulse Generator Model [id number] [place] [facility] Implantable Pulse Generator Serial Number [id number] [facility] Type Interrogation Session Remote Device Initiated [facility] Re-programmed During Session NO [facility] Clinic Name Arrhythmia Device Clinic [facility] Implantable Pulse Generator Type Cardiac Resynchronization Therapy - Defibrillator [facility] Generator Implant Date [id number] [facility] Implantable Lead Basket Assembler [facility] Implantable Lead Model [id number] Quartet [facility] Implantable Lead Serial Number [id number] [facility] Implantable Lead Implant Date [id number] [facility] Implantable Lead Polarity Type Quadripolar Lead [facility] Implantable Lead Location Detail 1 UNKNOWN [facility] Implantable Lead Special Function Implant [facility] Implantable Lead Location Left Atrium [facility] Implantable Lead Basket Assembler [facility] Implantable Lead Model [id number] Durata SJ4 [facility] Implantable Lead Serial Number [id number] [facility] Implantable Lead Implant Date [id number] [facility] Implantable Lead Polarity Type Tripolar Lead [facility] Implantable Lead Special Function Implant [facility] Implantable Lead Location Right Ventricle [facility] Richie Setting Mode (NBG Code) VVTR [facility] Richie Setting Lower Rate Limit 70 {beats} /min [facility] Richie Setting Maximum Sensor Rate 120 {beats} /min [facility] Lead Channel Setting Sensing Polarity Bipolar [facility] Lead Channel Setting Sensing Polarity Bipolar [facility] Lead Channel Setting Sensing Anode Location Right Ventricle [facility] Lead Channel Setting Sensing Anode Terminal Ring [facility] Lead Channel Setting Sensing Cathode Location Right Ventricle [facility] Lead Channel Setting Sensing Cathode Terminal Tip [facility] Lead Channel Setting Sensing Sensitivity 0.3 mV [facility] Lead Channel Setting Sensing Adaptation Mode Adaptive [facility] Ventricular chambers paced during TRACK GREASER pacing. BiV [facility] TRACK GREASER LV-RV Delay 20 ms [facility] Lead Channel Setting Pacing Polarity Bipolar [facility] Lead Channel Setting Pacing Polarity Bipolar [facility] Lead Channel Setting Pacing Anode Location Right Ventricle [facility] Lead Channel Setting Pacing Anode Terminal Ring [facility] Lead Channel Setting Sensing Cathode Location Right Ventricle [facility] Lead Channel Setting Sensing Cathode Terminal Tip [facility] Lead Channel Setting Pacing Pulse Width 0.5 ms [facility] Lead Channel Setting Pacing Amplitude 2.0 V [facility] Lead Channel Setting Pacing Capture Mode Fixed Pacing [facility] Lead Channel Setting Pacing Polarity Bipolar [facility] Lead Channel Setting Pacing Pulse Width 1.5 ms [facility] Lead Channel Setting Pacing Amplitude 0.75 V [facility] Lead Channel Setting Pacing Capture Mode Fixed Pacing [facility] Zone Setting Type Category VF [facility] Zone Setting Vendor Type Category VF [facility] Zone Setting Status Active [facility] Zone Setting Detection Interval 300 ms [facility] Zone Setting Type Category VT [facility] Zone Setting Vendor Type Category VT2 [facility] Zone Setting Status Inactive [facility] Zone Setting Type Category VT [facility] Zone Setting Vendor Type Category VT1 [facility] Zone Setting Status Monitor [facility] Zone Setting Detection Interval 350 ms [facility] Lead Channel Status Null [facility] [...] [facility] Battery Date Time of Measurements [id number] [facility] Battery Status Middle of Service [facility] Battery PATTERN AND CHAIN MAKER Trigger When current voltage < 2.62 volts [facility] Battery Remaining Longevity 52 mo [facility] Battery Remaining Percentage 57.0 % [facility] Battery Voltage 2.95 V [facility] Capacitor Charge Type Reformation [facility] Capacitor Last Charge Date Time [id number] [facility] Capacitor Charge Time 8.9 s [facility] Capacitor Charge Energy 40 J [facility] Statistic Heart Rate Date Time Start [id number] [facility] Statistic Heart Rate Date Time End + [facility] Statistic Ventricular Heart Rate Min 70 {beats} /min [facility] Statistic Ventricular Heart Rate Mean 84 {beats} /min [facility] Statistic Ventricular Heart Rate Max 240 {beats} /min [facility] Richie Statistic Date Time Start [id number] [facility] Richie Statistic Date Time End + [facility] TRACK GREASER Statistic Date Time Start [id number] [facility] TRACK GREASER Statistic Date Time End + [facility] TRACK GREASER Statistic TRACK GREASER Percent Paced 57.0 % [facility] Atrial Tachy Statistic Date Time Start [id number] [facility] Atrial Tachy Statistic Date Time End +0000 [facility] Therapy Statistic Recent Shocks Delivered 0 [facility] Therapy Statistic Recent Shocks Aborted 0 [facility] Therapy Statistic Recent ATP Delivered 0 [facility] Therapy Statistic Recent Date Time Start [id number] [facility] Therapy Statistic Recent Date Time End +0000 [facility] Episode Statistic Recent Count 6 [facility] Episode Statistic Type Category VT [facility] Episode Statistic Vendor Type Category Non-sustained VT [facility] Episode Statistic Recent Date Time Start [id number] [facility] Episode Statistic Recent Date Time End +0000 [facility] Episode Identifier [id number] [facility] Episode Type Category VT [facility] Episode Vendor Type Category Non-sustained VT [facility] Episode Date Time [id number] [facility] Episode Duration 8 s PAR [facility] 02/05/2024 2:00 AM EST Narrative [facility] - 02/06/2024 2:57 PM EST Alert (VVTR) TRACK GREASER-D transmission: Alert report for acute decrease in [...] Known AF, on warfarin & carvedilol per [facility] Presenting Rhythm: VST/BP 70s-130s bpm w/ suggested ectopy Programmed VVTR, BiVP 57% (overall 63%), VSt 42% (overall 36%) Dr. Toledo, Lisa Mccarthy INFECTIOUS DISEASE PHYSICIAN, and Evie Kim INFECTIOUS DISEASE PHYSICIAN updated Next Monthly Remote 02/07/24 Sumit Toledo MD, PhD CV CARDIAC SERVICES ORDERA BLES Final Result [facility] [address] [place] [address] documented in this encounter Visit Diagnoses Diagnosis Presence of cardiac defibrillator documented in this encounter Additional Health Concerns Infection Onset Date Last Indicated Resolved Time CoV-Risk 02/10/2024 02/10/2024 02/21/2024 1:22 AM EST RSV 02/10/2024 02/10/2024 02/17/2024 1:25 AM EST documented as of this encounter Care Teams [employer] Ground Operations Supervisor Relationship Specialty Start Date End Date Eduardo Rutledge MD [address] [place] [address] PCP - General Internal Medicine 06/19/18 documented as of this encounter Additional Source Comments The information contained in this document represents components of the legal health record. It is not the complete legal health record.[facility]
--- OUTSIDE RECORDS SUMMARY | 2024-06-18 11:30 | XMS_ITS ---
[facility] Address [address] [place] [address] Care Team Providers Care Bellows Assembler Name Role Phone Eduardo Rutledge Primary Care Provider Laurie Dee [phone] Cool Encounters Encounter Location Date Provider Diagnosis [address] [address] 06/18/2024 Laurie Dee Plan Of Treatment Next Appt Details Provider Name:Laurie weiner, 12/06/2024 10:30:00 AM, [address] [place] [address], [phone], Progress Notes * Anshul SANCHEZOB:1950 (74 yo M)Acc No.[id number]:06/18/2024 Progress Note Patient: Lenny ROMAN Provider: Jason Dee DPM :1950 A ge:73 Y S ex:Male Date:06/18/2024 Address:[address] [place] [address] [id number] Pcp:Eduardo Rutledge Subjective: * Chief Complaints: * [...] 06/18/2024 Generated for Francisco johnson/Reg/Florentino on: 0 10/25/2024 10:58 AM EDT
[2024-10-25 09:28] LABS: Prothrombin Time Whole Bld POC 33.5 sec (11.1-13.5); ~PT, ~INR - Anti Coag Clinic 2.8 (0.9-1.1)
--- NOTE | 2024-10-25 09:29 | MHC.OFFVISCO ---
Intake Intake Visit Reasons: Anticoagulation Allergies penicillamine Adverse Reaction (Unknown, Verified 10/25/24 09:24) nausea,vomiting Medication List - Last Reconciled 10/25/24 by Nasima Nava RN [ARJUNA PO] ascorbic acid (vitamin C) 1 tab PO DAILY B-complex with vitamin C (Vitamin B Complex C W/B-12) 1 cap PO DAILY digoxin 125 mcg PO DAILY gabapentin PO [glucoasamine sulfate PO] [magnesium PO] metoprolol succinate ER 150 mg (1.5 x 100 mg) PO Q12H [N-acetyl cysteine (NAC) PO] trazodone 50 mg PO BEDTIME PRN vitamin A palmitate 1 cap PO DAILY vitamin E acetate 1 cap PO DAILY warfarin 5 mg See Protocol PO DAILY [ZINC PO] Nursing Note INR: 2.8 in therapeutic range 2-3 Medications and supplements reviewed No changes in health, diet, medications, or supplements, Denies any signs and symptoms of bleeding or bruising or clotting. Bleeding, bruising, clotting discussed Nutritional guidance given Dose: 5mg X 6 days and 2.5mg X 1 day (Tu) F/U INR: 4 weeks Patient verbalizes understanding of instructions given Anti-Coag Initial Assessment Social Hx Patient Tobacco Use Status: Never used Tobacco alcohol intake: never Coding Level of Care Code Est Patient Level 1 Diagnoses Current use of anticoagulant therapy Z79.01 Assessment & Plan Assessment & Plan (1) Current use of anticoagulant therapy: Code(s): Z79.01 - FDC (current) use of 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
--- OUTSIDE RECORDS SUMMARY | 2024-10-25 10:56 | XMS_ITS | Encounter Summary ---
Author Organization [facility] Address [address] [place] [address] Phone Care Team Providers Care Club Lounge Attendant Name Role Phone Eduardo Rutledge MD Primary Care Provid er Encounter Details Date Type Department Care Team (Late st Contact Info) Description 06/08/2023 Procedure Pass [facility] Cardiology Division [address] [facility], [address] [place] [address] Social History Tobacco Use Types Packs/Day Years [...] st Contact Info) Description 07/09/2024 Procedure Pass [facility] Card[facility] Division [address] [facility], [address] [place] [address] 08/16/2024 Procedure Pass [facility] [address] [facility], [address] [place] [address] 10/05/2024 Procedure Pass [facility] Card[facility] Division [address] [facility], [address] [place] [address] 10/05/2024 Procedure Pass [facility] Cardiology Division [address] [facility], [address] [place] [address] 11/06/2024 9:30 AM EDT Appointment [facility] Card[facility] Division [address] [facility], [address] [place] [address] Sumit Toledo MD, PhD [address] [place], [place] [phone] [address] [email or web address] 11/09/2024 2:00 PM EDT Appointment [facility] Cardiac EP [address] [facility], 5th Floor, [address] [place] [address] Sumit Toledo MD, PhD [address] [place], [place] [phone] [address] [email or web address] 11/09/2024 2:30 PM EDT Office Visit [facility] Cardiac Arrhythmia Service [address] [facility], 5th Floor, [address] [place] [address] Sumit Toledo MD, PhD [address] [place], [place] [phone] [address] [email or web address] 11/09/2024 3:00 PM EDT Office Visit [facility] Heart Failure & Transplantation [address] [facility], 5th Floor, [address] [place] [address] Tal Stanley MD 55 [facility] [address] [place] [address] [email or web address] 02/05/2025 8:00 AM EST Appointment [facility] Cardiology Division [address] [facility], [address] [place] [address] Sumit Tloedo MD, PhD 55 [facility] [place] [address] [email or web address] 05/07/2025 8:00 AM EDT Appointment [facility] Cardiology Division [address] [facility], [address] [place] [address] Sumit Toledo MD, PhD 55 [facility] [place] [address] [email or web address] documented as of this encounter Visit Diagnoses Not on filedocumented in this encounter Additional Health Concerns Infection Onset Date Last Indicated Resolved Time CoV-Risk 02/10/2024 02/10/2024 02/21/2024 1:22 AM EST RSV 02/10/2024 02/10/2024 02/17/2024 1:25 AM EST documented as of this encounter Care Teams Club Lounge Attendant Relationship Specialty Start Date End Date Eduardo Rutledge MD [address] [place] [address] [address] PCP - General Internal Medicine 06/19/18 documented as of this encounter Additional Source Comments The information contained in this document represents components of the legal health record. It is not the complete legal health record.[facility]
--- OUTSIDE RECORDS SUMMARY | 2024-10-25 10:57 | XMS_ITS | Encounter Summary ---
Author Organization [facility] Address [facility] [address] [place] [address] Phone Care Team Providers Care Goodwill Representative Name Role Phone Eduardo Rutledge MD Primary Care Provid er Encounter Details Date Type Department Care Team (Late st Contact Info) Description 01/09/[address] [facility] [address] [facility], [address] [place] [address] Social History Tobacco Use Types Packs/Day Years Used Date Smoking Tobacco: Never Sex and Gender Information Value Date Recorded Sex Assigned at Male 05/22/2020 9:31 AM EDT Legal Sex Male 6:47 PM EST Gender Identity Male 05/22/2020 9:31 AM EDT Sexual Orientation Straight 05/22/2020 9: 31 AM EDT documented as of this encounter Plan of Treatment Upcoming Encounters Date Type Department Care Team (Late st Contact Info) Description 07/09/[address] [facility] [address] [facility], [address] [place] [address] 08/16/[address] [facility] [address] [facility], [address] [place] [address] 10/05/[address] [facility] [address] [facility], [address] [place] [address] 10/05/[address] [facility] [address] [facility], [address] [place] [address] 11/06/2024 9:[address] [facility] 55 [facility], [address] [place] [address] Sumit Toledo MD, PhD 55 [facility] [place] [address] [email or web address] 11/09/2024 2:[address] [facility] [place] EP 32 [facility], 5th Floor, [address] [place] [address] Sumit Toledo MD, PhD [address] [place] [address] [email or web address] 11/09/2024 2:30 PM EDT Office [facility] Cardiac Arrhythmia Service 32 [facility], 5th Floor, [address] [place] [address] Sumit Toledo MD, PhD [address] [place] [address] [email or web address] 11/09/2024 3:00 PM EDT Office Visit [facility] Heart Failure & Transplantation 32 [facility], 5th Floor, [address] [place] [address] Tal Stanley MD [address] [address] [email or web address] 02/05/2025 8:[address] [facility] 55 [facility], [address] [place] [address] Sumit Toledo MD, PhD [address] [place], [place] [address] [address] [email or web address] 05/07/2025 8:[address] [facility] 55 [facility], [address] [place] [address] Sumit Toledo MD, PhD [address] [place], [place] [address] [place] [address] [email or web address] documented as of this encounter Visit Diagnoses Not on filedocumented in this encounter Additional Health Concerns Infection Onset Date Last Indicated Resolved Time CoV-Risk 02/10/2024 02/10/2024 02/21/2024 1:22 AM EST RSV 02/10/2024 02/10/2024 02/17/2024 1:25 AM EST documented as of this encounter Care Teams Goodwill Representative Relationship Specialty Start Date End Date Eduardo Rutledge MD [address] [place] [address] PCP - General Internal Medicine 06/19/18 documented as of this encounter Additional Source Comments The information contained in this document represents components of the legal health record. It is not the complete legal health record.[facility]
--- OUTSIDE RECORDS SUMMARY | 2024-10-25 10:57 | XMS_ITS | Encounter Summary ---
Author Organization [facility] Address [facility] [address] [place] [address] Phone Care Team Providers Care Log Grader Name Role Phone Eduardo Rutledge MD Primary Care Provid er Encounter Details Date Type Department Care Team (Late st Contact Info) Description 12/08/2022 Procedure Pass [facility] Cardiology Division [address] [place] [address], [address] [place] [address] Social History Tobacco Use Types Packs/Day Years [...] [facility], [address] [place] [address] 08/16/2024 Procedure Pass [facility] Cardiology Division [address] [facility], [address] [place] [address] 10/05/2024 Procedure Pass [facility] Cardiology Division [address] [facility], [address] [place] [address] 10/05/2024 Procedure Pass [facility] Cardiology Division [facility], [address] [place] [address] 11/06/2024 9:30 AM EDT Appointment [facility] Card[facility] 55 [facility], [address] [place] [address] Sumit Toledo MD, PhD [address] [place], [place] [address] [address] [email or web address] 11/09/2024 2:00 PM EDT Appointment [facility] Cardiac EP 32 [facility], 5th Floor, [address] [place] [address] Sumit Toledo MD, PhD [address] [place], [place] [address] [address] [email or web address] 11/09/2024 2:30 PM EDT Office Visit [facility] Cardiac Arrhythmia Service 32 [facility], 5th Floor, [address] [place] [address] Sumit Toledo MD, PhD [address] [place], [place] [address] [address] [email or web address] 11/09/2024 3:00 PM EDT Office Visit [facility] Heart Failure & Transplantation 32 [facility], 5th Floor, [address] [place] [address] Tal Stanley MD 55 [facility] [address] [place] [address] [email or web address] 02/05/2025 8:00 AM EST Appointment [facility] Cardiology Division [facility], [address] [place] [address] Sumit Toledo MD, PhD 55 [facility] [place] [address] [email or web address] 05/07/2025 8:00 AM EDT Appointment [facility] Cardiology Division 55 [facility], [address] [place] [address] Sumit Toledo MD, PhD 55 [facility] [place] [address] [email or web address] documented as of this encounter Visit Diagnoses Not on filedocumented in this encounter Additional Health Concerns Infection Onset Date Last Indicated Resolved Time CoV-Risk 02/10/2024 02/10/2024 02/21/2024 1:22 AM EST RSV 02/10/2024 02/10/2024 02/17/2024 1:25 AM EST documented as of this encounter Care Teams Log Grader Relationship Specialty Start Date End Date Eduardo Rutledge MD [address] [place] [address] [address] PCP - General Internal Medicine 06/19/18 documented as of this encounter Additional Source Comments The information contained in this document represents components of the legal health record. It is not the complete legal health record.[facility]
--- OUTSIDE RECORDS SUMMARY | 2024-10-25 10:57 | XMS_ITS | Encounter Summary ---
Author Organization [facility] Address [facility] [address] [place] [address] Phone Care Team Providers Care Ship'S Master Name Role Phone Eduardo Rutledge MD Primary Care Provid er Encounter Details Date Type Department Care Team (Late st Contact Info) Description 02/11/2020 Procedure Pass [facility] [address] [facility], [address] [place] [address] Social History Tobacco Use Types Packs/Day Years [...] st Contact Info) Description 07/09/2024 Procedure Pass [facility] [address] [facility], [address] [place] [address] 08/16/2024 Procedure Pass [facility] [address] [facility], [address] [place] [address] 10/05/2024 Procedure Pass [facility] [address] [facility], [address] [place] [address] 10/05/2024 Procedure Pass [facility] [address] [facility], [address] [place] [address] 11/06/2024 9:30 AM EDT Appointment [facility] [address] [facility], [address] [place] [address] Sumit Toledo MD, PhD 55 [facility] [place] [address] [email or web address] 11/09/2024 2:00 PM EDT Appointment [facility] [place] EP 32 [facility], 5th Floor, [address] [place] [address] Sumit Toledo MD, PhD [address] [place] [address] [email or web address] 11/09/2024 2:30 PM EDT Office Visit [facility]iac Arrhythmia Service 32 [facility], 5th Floor, [address] [place] [address] Sumit Toledo MD, PhD [address] [place] [address] [email or web address] 11/09/2024 3:00 PM EDT Office Visit [facility] Heart Failure & Transplantation 32 [facility], 5th Floor, [address] [place] [address] Tal Stanley MD [address] [address] [email or web address] 02/05/2025 8:00 AM EST Appointment [facility] 55 [facility], [address] [place] [address] Sumit Toledo MD, PhD [address] [place], [place] [address] [address] [email or web address] 05/07/2025 8:00 AM EDT Appointment [facility] 55 [facility], [address] [place] [address] Sumit Toledo MD, PhD [address] [place], [place] [phone] [place] [address] [email or web address] documented as of this encounter Visit Diagnoses Not on filedocumented in this encounter Additional Health Concerns Infection Onset Date Last Indicated Resolved Time CoV-Risk 02/10/2024 02/10/2024 02/21/2024 1:22 AM EST RSV 02/10/2024 02/10/2024 02/17/2024 1:25 AM EST documented as of this encounter Care Teams Ship'S Master Relationship Specialty Start Date End Date Eduardo Rutledge MD [address] [place] [address] PCP - General Internal Medicine 06/19/18 documented as of this encounter Additional Source Comments The information contained in this document represents components of the legal health record. It is not the complete legal health record.[facility]
--- OUTSIDE RECORDS SUMMARY | 2024-10-25 10:57 | XMS_ITS | Encounter Summary ---
Author Organization [facility] Address Critical access hospital [address] [place] [address] Phone Care Team Providers Care Curtain Hemmer Automatic Name Role Phone Eduardo Rutledge MD Primary Care Provid er Encounter Details Date Type Department Care Team (Late st Contact Info) Description 03/09/2023 Procedure Pass [facility] Cardiology Division [address] [place] [address], [address] [place] [address] Social History Tobacco Use Types Packs/Day Years [...] st Contact Info) Description 07/09/2024 Procedure Pass [facility] Card[facility] Division [facility], [address] [place] [address] 08/16/2024 Procedure Pass [facility], [address] [place] [address] 10/05/2024 Procedure Pass [facility] Division [facility], [address] [place] [address] 10/05/2024 Procedure Pass [facility] Card[facility] Division [facility], [address] [place] [address] 11/06/2024 9:30 AM EDT Appointment [facility] Cardiology Division 55 [facility], [address] [place] [address] Sumit Toledo MD, PhD [address] [place], [place] [address] [address] [email or web address] 11/09/2024 2:00 PM EDT Appointment [facility] Cardiac EP 32 [facility], 5th Floor, [address] [place] [address] Sumit Toledo MD, PhD [address] [place], [place] [address] [address] [email or web address] 11/09/2024 2:30 PM EDT Office Visit [facility] Cardiac Arrhythmia Service 32 [facility], 5th Floor, [address] [place] [address] Sumit Toledo MD, PhD [address] [place], [place] [address] [address] [email or web address] 11/09/2024 3:00 PM EDT Office Visit [facility] Heart Failure & Transplantation 32 [facility], 5th Floor, [address] [place] [address] Tal Stanley MD 55 [facility] [address] [place] [address] [email or web address] 02/05/2025 8:00 AM EST Appointment [facility] Cardiology Division 55 [facility], [address] [place] [address] Sumit Toledo MD, PhD 55 [facility] [place] [address] [email or web address] 05/07/2025 8:00 AM EDT Appointment [facility] Cardiology Division 55 [facility], [address] [place] [address] Sumit Toledo MD, PhD 55 [facility] [place] [address] [email or web address] documented as of this encounter Visit Diagnoses Not on filedocumented in this encounter Additional Health Concerns Infection Onset Date Last Indicated Resolved Time CoV-Risk 02/10/2024 02/10/2024 02/21/2024 1:22 AM EST RSV 02/10/2024 02/10/2024 02/17/2024 1:25 AM EST documented as of this encounter Care Teams Curtain Hemmer Automatic Relationship Specialty Start Date End Date Eduardo Rutledge MD [address] [place] [address] [address] PCP - General Internal Medicine 06/19/18 documented as of this encounter Additional Source Comments The information contained in this document represents components of the legal health record. It is not the complete legal health record.[facility]
--- OUTSIDE RECORDS SUMMARY | 2024-10-25 10:57 | XMS_ITS | Encounter Summary ---
Author Organization [facility] Address [facility] [address] [place] [address] Phone Care Team Providers Care Customer Service Voice Name Role Phone Eduardo Rutledge MD Primary Care Provid er Encounter Details Date Type Department Care Team (Late st Contact Info) Description 08/16/2024 Procedure Pass [facility] Cardiology Division [address] [facility], [address] [place] [address] Social History Tobacco Use Types Packs/Day Years [...] st Contact Info) Description 07/09/2024 Procedure Pass [facility] Cardiology Division [facility], [address] [place] [address] 08/16/2024 Procedure Pass [facility] Cardiology Division [address] [facility], [address] [place] [address] 10/05/2024 Procedure Pass [facility] Cardiology Division [facility], [address] [place] [address] 10/05/2024 Procedure Pass [facility] Cardiology Division [address] [facility], [address] [place] [address] 11/06/2024 9:30 AM EDT Appointment [facility] Cardiology Division 55 [facility], [address] [place] [address] Sumit Toledo MD, PhD [address] [place], [place] [address] [address] [email or web address] 11/09/2024 2:00 PM EDT Appointment [facility] Cardiac EP 32 [facility], 5th Floor, [address] [place] [address] Sumit Toledo MD, PhD [address] [place], [place] [address] [address] [email or web address] 11/09/2024 2:30 PM EDT Office Visit [facility] Cardiac Arrhythmia Service 32 [facility], 5th Floor, [address] [place] [address] Sumit Toledo MD, PhD [address] [place], [place] [address] [address] [email or web address] 11/09/2024 3:00 PM EDT Office Visit [facility] Heart Failure & Transplantation 32 [facility], 5th Floor, [address] [place] [address] Tal Stanley MD 55 [facility] [address] [place] [address] [email or web address] 02/05/2025 8:00 AM EST Appointment [facility] Cardiology Division 55 [facility], [address] [place] [address] Sumit Toledo MD, PhD 55 [facility] [place] [address] [email or web address] 05/07/2025 8:00 AM EDT Appointment [facility] Cardiology Division 55 [facility], [address] [place] [address] Sumit Toleod MD, PhD 55 [facility] [place] [address] [email or web address] documented as of this encounter Visit Diagnoses Not on filedocumented in this encounter Care Teams Customer Service Voice Relationship Specialty Start Date End Date Eduardo Rutledge MD [address] [place] [address] PCP - General Internal Medicine 06/19/18 documented as of this encounter Additional Source Comments The information contained in this document represents components of the legal health record. It is not the complete legal health record.[facility]
--- OUTSIDE RECORDS SUMMARY | 2024-10-25 10:57 | XMS_ITS | Encounter Summary ---
Author Organization [facility] Address [facility] [address] [place] [address] Phone Care Team Providers Care Slot Machine Department Floorperson Name Role Phone Eduardo Rutledge MD Primary Care Provid er Encounter Details Date Type Department Care Team (Late st Contact Info) Description 12/12/2019 Procedure Pass [facility] [place] 55 [facility], [address] [place] [address] Social History Tobacco Use Types Packs/Day Years [...] st Contact Info) Description 07/09/2024 Procedure Pass [facility] [place] [address] [facility], [address] [place] [address] 08/16/2024 Procedure Pass [facility] [place] [address] [facility], [address] [place] [address] 10/05/2024 Procedure Pass [facility] [place] [address] [facility], [address] [place] [address] 10/05/2024 Procedure Pass [facility] [place] [address] [facility], [address] [place] [address] 11/06/2024 9:30 AM EDT Appointment [facility] [place] [address] [facility], [address] [place] [address] Sumit Toledo MD, PhD 55 [facility] [place] [address] [email or web address] 11/09/2024 2:00 PM EDT Appointment [facility] [place] 32 [facility], 5th Floor, [address] [place] [address] Sumit Toledo MD, PhD [address] [place] [address] [email or web address] 11/09/2024 2:30 PM EDT Office Visit [facility] [place] Arrhythmia Service 32 [facility], 5th Floor, [address] [place] [address] Sumit Toledo MD, PhD [address] [place] [address] [email or web address] 11/09/2024 3:00 PM EDT Office Visit [facility] [place] Heart Failure & Transplantation 32 [facility], 5th Floor, [address] [place] [address] Tal Stanley MD [address] [address] [email or web address] 02/05/2025 8:00 AM EST Appointment [facility] [place] 55 [facility], [address] [place] [address] Sumit Toledo MD, PhD [address] [place], [place] [address] [address] [email or web address] 05/07/2025 8:00 AM EDT Appointment [facility] [place] 55 [facility], [address] [place] [address] Sumit Toledo MD, PhD [address] [place], [place] [address] [place] [address] [email or web address] documented as of this encounter Visit Diagnoses Not on filedocumented in this encounter Additional Health Concerns Infection Onset Date Last Indicated Resolved Time CoV-Risk 02/10/2024 02/10/2024 02/21/2024 1:22 AM EST RSV 02/10/2024 02/10/2024 02/17/2024 1:25 AM EST documented as of this encounter Care Teams Slot Machine Department Floorperson Relationship Specialty Start Date End Date Eduardo Rutledge MD [address] [place] [address] PCP - General Internal Medicine 06/19/18 documented as of this encounter Additional Source Comments The information contained in this document represents components of the legal health record. It is not the complete legal health record.[facility]
--- OUTSIDE RECORDS SUMMARY | 2024-10-25 10:57 | XMS_ITS | Encounter Summary ---
Author Organization [facility] Address [facility], [address] [place] [address] Phone Care Team Providers Care Manager Database Name Role Phone Eduardo Rutledge MD Primary Care Provid er Encounter Details Date Type Department Care Team (Late st Contact Info) Description 06/10/2021 Procedure Pass [facility] Cardiac EP 32 [facility], 5th Floor, [address] [place] [address] Social History Tobacco Use Types Packs/Day Years [...] st Contact Info) Description 07/09/2024 Procedure Pass [facility] Cardiology Division [address] [facility], [address] [place] [address] 08/16/2024 Procedure Pass [facility] Cardiology Division [address] [facility], [address] [place] [address] 10/05/2024 Procedure Pass [facility] Cardiology Division 55 [facility], [address] [place] [address] 10/05/2024 Procedure Pass [facility] Cardiology Division 55 [facility], [address] [place] [address] 11/06/2024 9:30 AM EDT Appointment [facility] Cardiology Division 55 [facility], [address] [place] [address] Sumit Toledo MD, PhD 55 [facility] [place] [address] [email or web address] 11/09/2024 2:00 PM EDT Appointment [facility] Cardiac EP 32 [facility], 5th Floor, [address] [place] [address] Sumit Toledo MD, PhD [address] [place] [address] [email or web address] 11/09/2024 2:30 PM EDT Office Visit [facility] Cardiac Arrhythmia Service 32 [facility], 5th Floor, [address] [place] [address] Sumit Toledo MD, PhD [address] [place] [address] [email or web address] 11/09/2024 3:00 PM EDT Office Visit [facility] Heart Failure & Transplantation 32 [facility], 5th Floor, [address] [place] [address] Tal Stanley MD [address] [address] [email or web address] 02/05/2025 8:00 AM EST Appointment [facility] Cardiology Division 55 [facility], [address] [place] [address] Sumit Toledo MD, PhD 55 [facility] [address] [email or web address] 05/07/2025 8:00 AM EDT Appointment [facility] Cardiology Division 55 [facility], [address] [place] [address] Sumit Toledo MD, PhD [address] [place], [place] [address] [place] [address] [email or web address] documented as of this encounter Visit Diagnoses Not on filedocumented in this encounter Additional Health Concerns Infection Onset Date Last Indicated Resolved Time CoV-Risk 02/10/2024 02/10/2024 02/21/2024 1:22 AM EST RSV 02/10/2024 02/10/2024 02/17/2024 1:25 AM EST documented as of this encounter Care Teams Manager Database Relationship Specialty Start Date End Date Eduardo Rutledge MD [address] [place] [address] PCP - General Internal Medicine 06/19/18 documented as of this encounter Additional Source Comments The information contained in this document represents components of the legal health record. It is not the complete legal health record.[facility]
--- OUTSIDE RECORDS SUMMARY | 2024-10-25 10:57 | XMS_ITS | Encounter Summary ---
Author Organization [facility] Address [facility] [address] [place] [address] Phone Care Team Providers Care Marketing Development Representative Name Role Phone Eduardo Rutledge MD Primary Care Provid er Encounter Details Date Type Department Care Team (Late st Contact Info) Description 04/10/2020 Procedure Pass [facility] Cardiology Division 55 [facility], [address] [place] [address] Social History Tobacco Use Types Packs/Day Years [...] st Contact Info) Description 07/09/2024 Procedure Pass [facility] Cardiology Division 55 [facility], [address] [place] [address] 08/16/2024 Procedure Pass [facility] Cardiology Division 55 [facility], [address] [place] [address] 10/05/2024 Procedure Pass [facility] Cardiology Division 55 [facility], [address] [place] [address] 10/05/2024 Procedure Pass [facility] Cardiology Division 55 [facility], [address] [place] [address] 11/06/2024 9:30 AM EDT Appointment [facility] Cardiology Division 55 [facility], [address] [place] [address] Sumit Toledo MD, PhD 55 [facility] [place] [address] [email or web address] 11/09/2024 2:00 PM EDT Appointment [facility] Cardiac EP 32 [facility], 5th Floor, [address] [place] [address] Sumit Toledo MD, PhD [address] [place] [address] [email or web address] 11/09/2024 2:30 PM EDT Office Visit [facility] Cardiac Arrhythmia Service 32 [facility], 5th Floor, [address] [place] [address] Sumit Toledo MD, PhD [address] [place] [address] [email or web address] 11/09/2024 3:00 PM EDT Office Visit [facility] Heart Failure & Transplantation 32 [facility], 5th Floor, [address] [place] [address] Tal Stanley MD [address] [address] [email or web address] 02/05/2025 8:00 AM EST Appointment [facility] Cardiology Division 55 [facility], [address] [place] [address] Sumit Toledo MD, PhD [address] [place], [place] [address] [address] [email or web address] 05/07/2025 8:00 AM EDT Appointment [facility] Cardiology Division 55 [facility], [address] [place] [address] Sumit Toledo MD, PhD [address] [place], [place] [address] [place] [address] [email or web address] documented as of this encounter Visit Diagnoses Not on filedocumented in this encounter Additional Health Concerns Infection Onset Date Last Indicated Resolved Time CoV-Risk 02/10/2024 02/10/2024 02/21/2024 1:22 AM EST RSV 02/10/2024 02/10/2024 02/17/2024 1:25 AM EST documented as of this encounter Care Teams Marketing Development Representative Relationship Specialty Start Date End Date Eduardo Rutledge MD [address] [place] [address] PCP - General Internal Medicine 06/19/18 documented as of this encounter Additional Source Comments The information contained in this document represents components of the legal health record. It is not the complete legal health record.[facility]
--- OUTSIDE RECORDS SUMMARY | 2024-10-25 10:57 | XMS_ITS | Patient Health Record ---
Author Organization [facility] Address [address] [place] [address] Care Team Providers Care Gum Cook Name Role Phone Eduardo Rutledge Primary Care Provider Laurie Dee Unavailable [phone] Allergies Allergen (clinical drug ingredient) Drug/Non Drug Allergy documented on EMR Reaction Allergy Type Onset Date Status Penicillin Unknown Drug Allergy Active Reason For Referral No Information Medications Medication SIG (Take, Route, Fr equency, Duration) Notes Start Date End Date Status Warfarin Sodium Acti ve Digoxin Active Carvedilol Active Custom Orthotics 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 to hallux limitus and aquired hallux estensus 09/03/2024 Active traZODone HCl 50 MG TAKE 1 TABLET ORALLY BEDTIME NEEDED FOR SLEEP Oral; Duration: 90 Days Active Immunizations Vaccine Route Administration Date Status Comme nts Influenza Unknown 10/15/2024 Refused Social History Tobacco Use: Social History Observation [...] Problem Status W/U Status Risk Notes Problem Neuropathy (553828855) Neuropathy (G62.9) Active confirmed Vital Signs Blood pressure diastolic 88 mm Hg 10/15/2024 Height 6ft 3in in 10/15/2024 Blood pressure systolic 120 mm Hg 10/15/2024 Weight 194 lbs 10/15/2024 BMI 24.25 kg/m2 10/15/2024 Encounters Encounter Location Date Provider Diagnosis [address] [address] 03/28/2024 Laurie Dee Neuropathic ulcer of right [...] lesser toe, left M19.072 and Neuropathy G62.[address] [address] 04/30/2024 Laurie Dee Neuropathic ulcer of right foot, limited to breakdown of skin L97.511 ; Other hammer toe(s) (acquired), right foot M20.41 and Neuropathy G62.[address] [address] 09/03/2024 Laurie Dee Other hammer toe(s) (acquired), right foot M20.41 ; Hallux limitus of right foot M20.5X1 ; Neuropathic ulcer of right foot with fat layer exposed L97.512 ; Arthritis of joint of lesser toe, right M19.071 and Neuropathy G62.[address] [address] 10/15/2024 Laurie Perica Hallux limitus of right foot M20.5X1 ; Neuropathic ulcer of right foot with fat layer exposed L97.512 ; Other hammer toe(s) (acquired), right foot M20.41 ; Arthritis of joint of lesser toe, right M19.071 ; Neuropathy G62.9 ; Other hammer toe(s) (acquired), left foot M20.42 and Neuropathic ulcer of left foot with fat layer exposed L97.[address] [place] [place] [address] 10/15/2024 Laurie Leila [facility] [address] [address] 01/10/2024 Laurie Reyregine [facility] [address] [address] 03/19/2024 Laurie Reyregine [facility] [address] [address] 04/30/2024 Laurie Dee Assessments Encounter Date Diagnosis [...] toe(s) (acquired), right foot (ICD-10 - M20.41) 10/15/2024 Hallux limitus of right foot (ICD-10 - M20.5X1) 10/15/2024 Neuropathic ulcer of right foot with fat layer exposed (ICD-10 - L97.512) Response to treatment Resistant to previous conservative treatment 10/15/2024 Other hammer toe(s) (acquired), right foot (ICD-10 [...] of lesser toe, right (ICD-10 - M19.071) 10/15/2024 Arthritis of joint of lesser toe, right (ICD-10 - M19.071) 10/15/2024 Neuropathy (ICD-10 - G62.9) 09/03/2024 Neuropathy (ICD-10 - G62.9) 03/28/2024 Pain in left toe(s) (ICD-10 - M79.675) 10/15/2024 Other hammer toe(s) (acquired), left foot (ICD-10 - M20.42) 03/28/2024 Arthritis of joint of lesser toe, right (ICD-10 - M19.071) 10/15/2024 Neuropathic ulcer of left foot with fat layer exposed (ICD-10 - L97.522) 03/28/2024 Other hammer toe(s) (acquired), left foot (ICD-10 - M20.42) 03/28/2024 Arthritis of joint of lesser toe, left (ICD-10 - M19.072) 03/28/2024 Neuropathy (ICD-10 - G62.9) 03/28/2024 Other Plan Of Treatment Pending Test Test Name Order Date X ray : Foot, right 3V 03/28/2024 Next Appt Details Provider Name:Laurie weiner, 12/06/2024 10:30:00 AM, 1985 [place], [address], Insurance Providers Payer Name Payer Address Payer Phone Subscriber Number Group Number Insured Name Patient Relationship to Insured Coverage Start Date Coverage End Date Medicare [facility] [employer] [facility] [address] [place] [address] [id number] Shady Lenny Self - patient is the insured [address] [place] [address] [address] [place] [address] [id number] Lenny Caruso Self - patient is the insured Medical (General) History Medical History History ICD Code Covid 19 Heart Disease Measle Mumps Chicken Pox A fib ICD Device Surgical History Surgery Date(Month/Year) ICD Battery Replacement 2020
--- OUTSIDE RECORDS SUMMARY | 2024-10-25 10:57 | XMS_ITS | Encounter Summary ---
Author Organization [facility] Address [facility] [address] [place] [address] Phone Care Team Providers Care Spray Ii Painter Name Role Phone Eduardo Rutledge MD Primary Care Provid er Encounter Details Date Type Department Care Team (Late st Contact Info) Description 04/19/2020 Procedure Pass [facility] Cardiology Division 55 [facility], [address] [place] [address] Social History Tobacco Use Types Packs/Day Years [...] st Contact Info) Description 07/09/2024 Procedure Pass [facility] Cardiology Division 55 [facility], [address] [place] [address] 08/16/2024 Procedure Pass [facility] Cardiology Division 55 [facility], [address] [place] [address] 10/05/2024 Procedure Pass [facility] Cardiology Division 55 [facility], [address] [place] [address] 10/05/2024 Procedure Pass [facility] Cardiology Division 55 [facility], [address] [place] [address] 11/06/2024 9:30 AM EDT Appointment [facility] Cardiology Division 55 [facility], [address] [place] [address] Sumit Toledo MD, PhD 55 [facility]1109 [place] [address] [email or web address] 11/09/2024 2:00 PM EDT Appointment [facility] Cardiac EP 32 [facility], 5th Floor, [address] [place] [address] Sumit Toledo MD, PhD [address] [place] [address] [email or web address] 11/09/2024 2:30 PM EDT Office Visit [facility] Cardiac Arrhythmia Service 32 [facility], 5th Floor, [address] [place] [address] Sumit Toledo MD, PhD [address] [place] [address] [email or web address] 11/09/2024 3:00 PM EDT Office Visit [facility] Heart Failure & Transplantation 32 [facility], 5th Floor, [address] [place] [address] Tal Stanley MD [address] [address] [email or web address] 02/05/2025 8:00 AM EST Appointment [facility] Cardiology Division 55 [facility], [address] [place] [address] Sumit Toledo MD, PhD [address] [place], [place] [address] [address] [email or web address] 05/07/2025 8:00 AM EDT Appointment [facility] Cardiology Division 55 [facility], [address] [place] [address] Sumit Toledo MD, PhD [address] [place], [place] [address] [place] [address] [email or web address] documented as of this encounter Visit Diagnoses Not on filedocumented in this encounter Additional Health Concerns Infection Onset Date Last Indicated Resolved Time CoV-Risk 02/10/2024 02/10/2024 02/21/2024 1:22 AM EST RSV 02/10/2024 02/10/2024 02/17/2024 1:25 AM EST documented as of this encounter Care Teams Spray Ii Painter Relationship Specialty Start Date End Date Eduardo Rutledge MD [address] [place] [address] PCP - General Internal Medicine 06/19/18 documented as of this encounter Additional Source Comments The information contained in this document represents components of the legal health record. It is not the complete legal health record.[facility]
--- OUTSIDE RECORDS SUMMARY | 2024-10-25 10:57 | XMS_ITS | Encounter Summary ---
Author Organization [facility] Address [facility] [address] [place] [address] Phone Care Team Providers Care Slitting Machine Operator Helper Name Role Phone Eudardo Rutledge MD Primary Care Provid er Encounter Details Date Type Department Care Team (Late st Contact Info) Description 09/07/2023 Procedure Pass [facility] Cardiac EP 32 [facility], 5th Floor, [address] [place] [address] Social History Tobacco Use Types Packs/Day Years [...] st Contact Info) Description 07/09/2024 Procedure Pass [facility] Cardiology Division 55 [facility], [address] [place] [address] 08/16/2024 Procedure Pass [facility] Cardiology Division 55 [facility], [address] [place] [address] 10/05/2024 Procedure Pass [facility] Cardiology Division 55 [facility], [address] [place] [address] 10/05/2024 Procedure Pass [facility] Cardiology Division 55 [facility], [address] [place] [address] 11/06/2024 9:30 AM EDT Appointment [facility] Cardiology Division 55 [facility], [address] [place] [address] Sumit Toledo MD, PhD [address] [place], [place] [address] [address] [email or web address] 11/09/2024 2:00 PM EDT Appointment [facility] Cardiac EP 32 [facility], 5th Floor, [address] [place] [address] Sumit Toledo MD, PhD [address] [place] [address] [email or web address] 11/09/2024 2:30 PM EDT Office Visit [facility] Cardiac Arrhythmia Service 32 [facility], 5th Floor, [address] [place] [address] Sumit Toledo MD, PhD [address] [place], [place] [address] [address] [email or web address] 11/09/2024 3:00 PM EDT Office Visit [facility] Heart Failure & Transplantation 32 [facility], 5th Floor, [address] [place] [address] Tal Stanley MD 55 [facility] [address] [place] [address] [email or web address] [email or web address] 02/05/2025 8:00 AM EST Appointment [facility] Cardiology Division 55 [facility], [address] [place] [address] Sumit Toledo MD, PhD 55 [facility] [place] [address] [email or web address] 05/07/2025 8:00 AM EDT Appointment [facility] Cardiology Division 55 [facility], [address] [place] [address] Sumit Toledo MD, PhD 55 [facility] [place] [address] [email or web address] documented as of this encounter Visit Diagnoses Not on filedocumented in this encounter Additional Health Concerns Infection Onset Date Last Indicated Resolved Time CoV-Risk 02/10/2024 02/10/2024 02/21/2024 1:22 AM EST RSV 02/10/2024 02/10/2024 02/17/2024 1:25 AM EST documented as of this encounter Care Teams Slitting Machine Operator Helper Relationship Specialty Start Date End Date Eduardo Rutledge MD [address] [place] [address] PCP - General Internal Medicine 06/19/18 documented as of this encounter Additional Source Comments The information contained in this document represents components of the legal health record. It is not the complete legal health record.[facility]
--- OUTSIDE RECORDS SUMMARY | 2024-10-25 10:57 | XMS_ITS | Encounter Summary ---
Author Organization [facility] Address [facility]ly [facility] [address] [place] [address] Phone Care Team Providers Care Vat Operator Name Role Phone Eduardo Rutledge MD Primary Care Provid er Encounter Details Date Type Department Care Team (Late st Contact Info) Description 06/26/2021 Procedure Pass [facility] [place] [address], [address] [place] [address] Social History Tobacco Use Types Packs/Day Years [...] st Contact Info) Description 07/09/2024 Procedure Pass [facility] [place] [address], [address] [place] [address] 08/16/2024 Procedure Pass [facility] [place] [address], [address] [place] [address] 10/05/2024 Procedure Pass [facility] [place] [address], [address] [place] [address] 10/05/2024 Procedure Pass [facility] [place] [address], [address] [place] [address] 11/06/2024 9:30 AM EDT Appointment [facility] [place] [address], [address] [place] [address] Sumit Toledo MD, PhD 55 [facility] [place] [address] [email or web address] 11/09/2024 2:00 PM EDT Appointment [facility] [place] 32 [facility], 5th Floor, [address] [place] [address] Sumit Toledo MD, PhD [address] [place] [address] [email or web address] 11/09/2024 2:30 PM EDT Office Visit [facility] [place]ia Service 32 [facility], 5th Floor, [address] [place] [address] Sumit Toledo MD, PhD [address] [place] [address] [email or web address] 11/09/2024 3:00 PM EDT Office Visit [facility] [place] Heart Failure & Transplantation 32 [facility], 5th Floor, [address] [place] [address] Tal Stanley MD [address] [address] [email or web address] 02/05/2025 8:00 AM EST Appointment [facility] [place] 55 [facility], [address] [place] [address] Sumit Toledo MD, PhD [address] [place], [place] [address] [address] [email or web address] 05/07/2025 8:00 AM EDT Appointment [facility] [place] 55 [facility], [address] [place] [address] Sumit Toledo MD, PhD [address] [place], [place] [address] [place] [address] [email or web address] documented as of this encounter Visit Diagnoses Not on filedocumented in this encounter Additional Health Concerns Infection Onset Date Last Indicated Resolved Time CoV-Risk 02/10/2024 02/10/2024 02/21/2024 1:22 AM EST RSV 02/10/2024 02/10/2024 02/17/2024 1:25 AM EST documented as of this encounter Care Teams Vat Operator Relationship Specialty Start Date End Date Eduardo Rutledge MD [address] [place] [address] PCP - General Internal Medicine 06/19/18 documented as of this encounter Additional Source Comments The information contained in this document represents components of the legal health record. It is not the complete legal health record.[facility]
--- OUTSIDE RECORDS SUMMARY | 2024-10-25 10:57 | XMS_ITS | Encounter Summary ---
Author Organization [facility] Address [facility] [address] [address] Phone Care Team Providers Care Warp Hanger Name Role Phone Eduardo Rutledge MD Primary Care Provid er Encounter Details Date Type Department Care Team (Late st Contact Info) Description 09/09/2022 Procedure Pass [facility] [place] [place] [address] Social History Tobacco Use Types Packs/Day Years [...] st Contact Info) Description 07/09/2024 Procedure Pass [facility] Cardiology Division 55 [facility], [address] [place] [address] 08/16/2024 Procedure Pass [facility] Cardiology Division 55 [facility], [address] [place] [address] 10/05/2024 Procedure Pass [facility] Cardiology Division [facility], [address] [place] [address] 10/05/2024 Procedure Pass [facility] Cardiology Division 55 [facility], [address] [place] [address] 11/06/2024 9:30 AM EDT Appointment [facility] Cardiology Division 55 [facility], [address] [place] [address] Sumit Toledo MD, PhD [address] [place] [address] [email or web address] 11/09/2024 2:00 PM EDT Appointment [facility] Cardiac EP 32 [facility], 5th Floor, [address] [place] [address] Sumit Toledo MD, PhD [address] [place] [address] [email or web address] 11/09/2024 2:30 PM EDT Office Visit [facility] Cardiac Arrhythmia Service 32 [facility], 5th Floor, [address] [place] [address] Sumit Toledo MD, PhD [address] [place] [address] [email or web address] 11/09/2024 3:00 PM EDT Office Visit [facility] Heart Failure & Transplantation 32 [facility], 5th Floor, [address] [place] [address] Tal Stanley MD 55 [facility] [address] [place] [address] [email or web address] 02/05/2025 8:00 AM EST Appointment [facility] Cardiology Division 55 [facility], [address] [place] [address] Sumit Toledo MD, PhD 55 [facility] [place] [address] [email or web address] 05/07/2025 8:00 AM EDT Appointment [facility] Cardiology Division 55 [facility], [address] [place] [address] Sumit Toledo MD, PhD 55 [facility] [place] [address] [email or web address] documented as of this encounter Visit Diagnoses Not on filedocumented in this encounter Additional Health Concerns Infection Onset Date Last Indicated Resolved Time CoV-Risk 02/10/2024 02/10/2024 02/21/2024 1:22 AM EST RSV 02/10/2024 02/10/2024 02/17/2024 1:25 AM EST documented as of this encounter Care Teams Warp Hanger Relationship Specialty Start Date End Date Eduardo Rutledge MD [address] [place] [address] PCP - General Internal Medicine 06/19/18 documented as of this encounter Additional Source Comments The information contained in this document represents components of the legal health record. It is not the complete legal health record.[facility]
--- OUTSIDE RECORDS SUMMARY | 2024-10-25 10:57 | XMS_ITS | Encounter Summary ---
Author Organization [facility] Address [facility] [address] [place] [address] Phone Care Team Providers Care Drafting Layout Man Name Role Phone Eduardo Rutledge MD Primary Care Provid er Encounter Details Date Type Department Care Team (Late st Contact Info) Description 03/11/[address] [facility] Cardiology Division [address] [facility], [address] [place] [address] Social History Tobacco Use Types Packs/Day Years [...] Contact Info) Description 07/09/[address] [facility] Cardiology Division [address] [facility], [address] [place] [address] 08/16/[address] [facility] Cardiology Division [address] [facility], [address] [place] [address] 10/05/[address] [facility] Cardiology Division [address] [facility], [address] [place] [address] 10/05/[address] [facility] Cardiology Division [address] [facility], [address] [place] [address] 11/06/2024 9:[address] [facility] Cardiology Division [address] [facility], [address] [place] [address] Sumit Toledo MD, PhD 55 [facility] [place] [address] [email or web address] [place] 11/09/2024 2:[address] [facility] Cardiac EP 32 [facility], 5th Floor, [address] [place] [address] Sumit Toledo MD, PhD [address] [place] [address] [email or web address] [place] 11/09/2024 2:30 PM EDT Office Visit [facility] Cardiac Arrhythmia Service 32 [facility], 5th Floor, [address] [place] [address] Sumit Toledo MD, PhD [address] [place] [address] [email or web address]@[email or web address] [place] 11/09/2024 3:00 PM EDT Office Visit [facility] Heart Failure & Transplantation 32 [facility], 5th Floor, [address] [place] [address] Tal Stanley MD [address] [address] [email or web address] 02/05/2025 8:[address] [facility] Cardiology Division 55 [facility], [address] [place] [address] Sumit Toledo MD, PhD [address] [place], [place] [address] [address] IMELDA@[email or web address] [place] 05/07/2025 8:[address] [facility] Cardiology Division 55 [facility], [address] [place] [address] Sumit Toledo MD, PhD [address] [place], [place] [address] [place] [address] [email or web address]@[email or web address] [place] documented as of this encounter Visit Diagnoses Not on filedocumented in this encounter Additional Health Concerns Infection Onset Date Last Indicated Resolved Time CoV-Risk 02/10/2024 02/10/2024 02/21/2024 1:22 AM EST RSV 02/10/2024 02/10/2024 02/17/2024 1:25 AM EST documented as of this encounter Care Teams Drafting Layout Man Relationship Specialty Start Date End Date Eduardo Rutledge MD [address] [place] [address] PCP - General Internal Medicine 06/19/18 documented as of this encounter Additional Source Comments The information contained in this document represents components of the legal health record. It is not the complete legal health record.[facility]
--- OUTSIDE RECORDS SUMMARY | 2024-10-25 10:57 | XMS_ITS | Encounter Summary ---
Author Organization [facility] Address [facility] [address] [place] [address] Phone Care Team Providers Care Automation And Controls Instructor Name Role Phone Eduardo Rutledge MD Primary Care Provid er Encounter Details Date Type Department Care Team (Late st Contact Info) Description 06/26/2021 Procedure Pass [facility] [place] [address] [facility], [address] [place] [address] Social History Tobacco Use Types Packs/Day Years [...] st Contact Info) Description 07/09/2024 Procedure Pass [facility] [place] [place] [address] [facility], [address] [place] [address] 08/16/2024 Procedure Pass [facility] [place] [address] [facility], [address] [place] [address] 10/05/2024 Procedure Pass [facility] [place] [address] [facility], [address] [place] [address] 10/05/2024 Procedure Pass [facility] [place] [address] [facility], [address] [place] [address] 11/06/2024 9:30 AM EDT Appointment [facility] [place] [address] [facility], [address] [place] [address] Sumit Toledo MD, PhD 55 [facility]9 [place] [address] [email or web address] 11/09/2024 2:00 PM EDT Appointment [facility] [place] 32 [facility], 5th Floor, [address] [place] [address] Sumit Toledo MD, PhD [address] [place] [address] [email or web address] 11/09/2024 2:30 PM EDT Office Visit [facility] [place]hythmia Service 32 [facility], 5th Floor, [address] [place] [address] Sumit Toledo MD, PhD [address] [place] [address] [email or web address] 11/09/2024 3:00 PM EDT Office Visit [facility] [place] Failure & Transplantation 32 [facility], 5th Floor, [address] [place] [address] Tal Stanley MD [address] [address] [email or web address] [email or web address] [place] 02/05/2025 8:00 AM EST Appointment [facility] [place] 55 [facility], [address] [place] [address] Sumit Toledo MD, PhD [address] [place], [place] [address] [address] [email or web address] 05/07/2025 8:00 AM EDT Appointment [facility] [place] 55 [facility], [address] [place] [address] Sumit Toledo MD, PhD [address] [place], [place] [address] [place] [address] [email or web address] documented as of this encounter Visit Diagnoses Not on filedocumented in this encounter Additional Health Concerns Infection Onset Date Last Indicated Resolved Time CoV-Risk 02/10/2024 02/10/2024 02/21/2024 1:22 AM EST RSV 02/10/2024 02/10/2024 02/17/2024 1:25 AM EST documented as of this encounter Care Teams Automation And Controls Instructor Relationship Specialty Start Date End Date Eduardo Rutledge MD [address] [place] [address] PCP - General Internal Medicine 06/19/18 documented as of this encounter Additional Source Comments The information contained in this document represents components of the legal health record. It is not the complete legal health record.[facility]
--- OUTSIDE RECORDS SUMMARY | 2024-10-25 10:57 | XMS_ITS | Encounter Summary ---
Author Organization [facility] Address [address] [place] [address] Drive [address] [place] [address] Phone Care Team Providers Care Bonbon Cream Warmer Name Role Phone Eduardo Rutledge MD Primary Care Provid er Reason for Visit * Reason Comments Medication Refill Encounter Details Date Type Department Care Team (Late st Contact Info) Description 12/17/2021 Refill [facility] [place] Heart Failure & Transplantation [facility], 5th Floor, [address] [place] [address] Mirna Moulton MD [facility] [place] [address] [email or web address] Medication Refill Social History Tobacco Use Types Packs/Day Years [...] st Contact Info) Description 07/09/2024 Procedure Pass [facility] [place] Cardiology Division 55 [facility], [address] [place] [address] 08/16/2024 Procedure Pass [facility] [place] Cardiology Division 55 [facility], [address] [place] [address] 10/05/2024 Procedure Pass [facility] [place] Cardiology Division 55 [facility], [address] [place] [address] 10/05/2024 Procedure Pass [facility] [place] Cardiology Division 55 [facility], [address] [place] [address] 11/06/2024 9:30 AM EDT Appointment [facility] [place] Cardiology Division 55 [facility], [address] [place] [address] Sumit Toledo MD, PhD [address] [place] [address] [email or web address]@[email or web address] 11/09/2024 2:00 PM EDT Appointment [facility] [place] Cardiac EP 32 [facility], 5th Floor, [address] [place] [address] Sumit Toledo MD, PhD [address] [place] [address] [email or web address]@[email or web address] 11/09/2024 2:30 PM EDT Office Visit [facility] [place] Cardiac Arrhythmia Service 32 [facility], 5th Floor, [address] [place] [address] Sumit Toledo MD, PhD [address] [place] [address] [email or web address]@[email or web address] 11/09/2024 3:00 PM EDT Office Visit [facility] [place] Heart Failure & Transplantation 32 [facility], 5th Floor, [address] [place] [address] Tal Stanley MD 55 [facility] 5[address] [place] [address] [email or web address] 02/05/2025 8:00 AM EST Appointment [facility] Cardiology Division 55 [facility], [address] [place] [address] Sumit Toledo MD, PhD 55 [facility] [address] [place] [address] [email or web address]@[email or web address] 05/07/2025 8:00 AM EDT Appointment [facility] [place] Cardiology Division 55 [facility], [address] [place] [address] Sumit Toledo MD, PhD [address] [place], [place] [address] [place] [address] [email or web address] documented as of this encounter Visit Diagnoses Diagnosis Other cardiomyopathy Persistent atrial fibrillation Atrial fibrillation documented in this encounter Additional Health Concerns Infection Onset Date Last Indicated Resolved Time CoV-Risk 02/10/2024 02/10/2024 02/21/2024 1:22 AM EST RSV 02/10/2024 02/10/2024 02/17/2024 1:25 AM EST documented as of this encounter Care Teams Bonbon Cream Warmer Relationship Specialty Start Date End Date Eduardo Rutledge MD [address] [place] [address] PCP - General Internal Medicine 06/19/18 documented as of this encounter Additional Source Comments The information contained in this document represents components of the legal health record. It is not the complete legal health record.[facility]
--- OUTSIDE RECORDS SUMMARY | 2024-10-25 10:58 | XMS_ITS | Encounter Summary ---
Author Organization [facility] Address [address] [place] [address] [place] [address] Phone Care Team Providers Care Child Adolescent Psychiatrist Name Role Phone Valeriano [place] MD Primary Care Provider [phone] Mercedes Melgar MD Primary Care Provider Eduardo Rutledge MD Primary Care Provid er Encounter Details Date Type Department Care Team (Latest Contact Info) Description 09/10/2016 Transcribe Orders [facility] [place] [address] [place] [address], [address] [place] [address] Sumit Toledo MD, PhD [address] [place], [place] [address] [place] [address] [email or web address] Cardiac arrhythmia, unspecified cardiac arrhythmia type (Primary Dx) Social History Tobacco Use Types Packs/Day Years [...] st Contact Info) Description 07/09/2024 Procedure Pass [facility] Cardiology Division 55 [facility], [address] [place] [address] 08/16/2024 Procedure Pass [facility] Cardiology Division 55 [facility], [address] [place] [address] 10/05/2024 Procedure Pass [facility]iology Division 55 [facility], [address] [place] [address] 10/05/2024 Procedure Pass [facility]iology Division 55 [facility], [address] [place] [address] 11/06/2024 9:30 AM EDT Appointment [facility] 55 [facility], [address] [place] [address] Sumit Toledo MD, PhD [address] [place] [address] [email or web address] 11/09/2024 2:00 PM EDT Appointment [facility] Cardiac EP 32 [facility], 5th Floor, [address] [place] [address] Sumit Toledo MD, PhD [address] [place] [address] [email or web address] 11/09/2024 2:30 PM EDT Office Visit [facility] Cardiac Arrhythmia Service 32 [facility], 5th Floor, [address] [place] [address] Sumit Toledo MD, PhD [address] [place] [address] [email or web address] 11/09/2024 3:00 PM EDT Office Visit [facility] Heart Failure & Transplantation 32 [facility], 5th Floor, [address] [place] [address] Tal Stanley MD 55 [facility] 5[address] [place] [address] [email or web address] 02/05/2025 8:00 AM EST Appointment [facility] Cardiology Division 55 [facility], [address] [place] [address] Sumit Toledo MD, PhD 55 [facility]9 [place] [address] [email or web address] 05/07/2025 8:00 AM EDT Appointment [facility] Cardiology Division 55 [facility], [address] [place] [address] Sumit Toledo MD, PhD [address] [place], [place] [address] [place] [address] [email or web address] documented as of this encounter Visit Diagnoses Diagnosis Cardiac arrhythmia, unspecified cardiac arrhythmia type- Primary documented in this encounter Additional Health Concerns Infection Onset Date Last Indicated Resolved Time CoV-Risk 02/10/2024 02/10/2024 02/21/2024 1:22 AM EST RSV 02/10/2024 02/10/2024 02/17/2024 1:25 AM EST documented as of this encounter Care Teams Child Adolescent Psychiatrist Relationship Specialty Start Date End Date Valeriano [place] MD [address] [address] [place] [address] PCP - General 08/07/13 02/27/17 Mercedes Melgar MD [address] [place] [address] Drive [address] [place] [address] PCP - General Pulmonary Disease 02/28/17 06/18/18 Eduardo Rutledge MD [address] [place] [address] JEFFREY GUPTA [address] PCP - General Internal Medicine 06/19/18 documented as of this encounter Additional Source Comments The information contained in this document represents components of the legal health record. It is not the complete legal health record.[facility]
--- OUTSIDE RECORDS SUMMARY | 2024-10-25 10:58 | XMS_ITS | Encounter Summary ---
Author Organization [facility] Address [facility] [address] [place] [address] Phone Care Team Providers Care Cleaning Validation Consultant Name Role Phone Eduardo Rutledge MD Primary Care Provid er Encounter Details Date Type Department Care Team (Late st Contact Info) Description 06/27/2020 Procedure Pass [facility] Cardiology Division [address] [facility], [address] [place] [address] Social History Tobacco Use Types Packs/Day Years [...] 07/09/2024 Procedure Pass [facility] Cardiology Division [address] [facility], [address] [place] [address] 08/16/2024 Procedure Pass [facility] Cardiology Division [address] [facility], [address] [place] [address] 10/05/2024 Procedure Pass [facility] Cardiology Division [address] [facility], [address] [place] [address] 10/05/2024 Procedure Pass [facility] Cardiology Division [address] [facility], [address] [place] [address] 11/06/2024 9:30 AM EDT Appointment [facility] Cardiology Division [address] [facility], [address] [place] [address] Sumit Toledo MD, PhD 55 [facility] [place] [address] [email or web address] 11/09/2024 2:00 PM EDT Appointment [facility] Cardiac EP 32 [facility], 5th Floor, [address] [place] [address] Sumit Toledo MD, PhD [address] [place] [address] [email or web address]@[email or web address] 11/09/2024 2:30 PM EDT Office Visit [facility] Cardiac Arrhythmia Service 32 [facility], 5th Floor, [address] [place] [address] Sumit Toledo MD, PhD [address] [place] [address] [email or web address]@[email or web address] 11/09/2024 3:00 PM EDT Office Visit [facility] Heart Failure & Transplantation [address] [facility], 5th Floor, [address] [place] [address] Tal Stanley MD [address] [address] [email or web address] 02/05/2025 8:00 AM EST Appointment [facility] Cardiology Division 55 [facility], [address] [place] [address] Sumit Toledo MD, PhD [address] [place], [place] [address] [address] IMELDA@[email or web address] 05/07/2025 8:00 AM EDT Appointment [facility] Cardiology Division [facility], [address] [place] [address] Sumit Toledo MD, PhD [address] [place], [place] [address] [place] [address] [email or web address]@[email or web address] documented as of this encounter Visit Diagnoses Not on filedocumented in this encounter Additional Health Concerns Infection Onset Date Last Indicated Resolved Time CoV-Risk 02/10/2024 02/10/2024 02/21/2024 1:22 AM EST RSV 02/10/2024 02/10/2024 02/17/2024 1:25 AM EST documented as of this encounter Care Teams Cleaning Validation Consultant Relationship Specialty Start Date End Date Eduardo Rutledge MD [address] [place] [address] PCP - General Internal Medicine 06/19/18 documented as of this encounter Additional Source Comments The information contained in this document represents components of the legal health record. It is not the complete legal health record.[facility]
--- OUTSIDE RECORDS SUMMARY | 2024-10-25 10:58 | XMS_ITS | Encounter Summary ---
Author Organization [facility] Address [facility] [address] [place] [address] Phone Care Team Providers Care Manager Business Information Name Role Phone Eduardo Rutledge MD Primary Care Provid er Encounter Details Date Type Department Care Team (Late st Contact Info) Description 10/06/2018 Ancillary Orders [facility] Cardiology Division [address] [place] [address], [address] [place] [address] Sumit Toledo MD, PhD [address] [place] [address]-[address] [place] [address] [email or web address] Cardiac arrhythmia, unspecified cardiac arrhythmia type Social History Tobacco Use Types Packs/Day Years [...] Info) Description 07/09/2024 Procedure Pass [facility] Cardiology Division [facility], [address] [place] [address] 08/16/2024 Procedure Pass [facility] Cardiology Division 55 [facility], [address] [place] [address] 10/05/2024 Procedure Pass [facility] Cardiology Division 55 [facility], [address] [place] [address] 10/05/2024 Procedure Pass [facility] Cardiology Division 55 [facility], [address] [place] [address] 11/06/2024 9:30 AM EDT Appointment [facility] Cardiology Division 55 [facility], [address] [place] [address] Sumit Toledo MD, PhD [address] [place] [address] [email or web address] 11/09/2024 2:00 PM EDT Appointment [facility] Cardiac EP 32 [facility], 5th Floor, [address] [place] [address] Sumit Toledo MD, PhD [address] [place] [address] [email or web address] 11/09/2024 2:30 PM EDT Office Visit [facility] Cardiac Arrhythmia Service 32 [facility], 5th Floor, [address] [place] [address] Sumit Toledo MD, PhD [address] [place] [address] [email or web address] 11/09/2024 3:00 PM EDT Office Visit [facility] Heart Failure & Transplantation 32 [facility], 5th Floor, [address] [place] [address] Tal Stanley MD 55 [facility] [address] [address] [email or web address] 02/05/2025 8:00 AM EST Appointment [facility] Cardiology Division 55 [facility], [address] [place] [address] Sumit Toledo MD, PhD [address] [place], [place] [address] [place] [address] [email or web address] 05/07/2025 8:00 AM EDT Appointment [facility] Cardiology Division 55 [facility], [address] [place] [address] Sumit Toledo MD, PhD [address] [place], [place] [address] [address] [email or web address] documented as of this encounter Visit Diagnoses Diagnosis Cardiac arrhythmia, unspecified cardiac arrhythmia type documented in this encounter Additional Health Concerns Infection Onset Date Last Indicated Resolved Time CoV-Risk 02/10/2024 02/10/2024 02/21/2024 1:22 AM EST RSV 02/10/2024 02/10/2024 02/17/2024 1:25 AM EST documented as of this encounter Care Teams Manager Business Information Relationship Specialty Start Date End Date Eduardo Rutledge MD [address] [place] [address] PCP - General Internal Medicine 06/19/18 documented as of this encounter Additional Source Comments The information contained in this document represents components of the legal health record. It is not the complete legal health record.[facility]
--- OUTSIDE RECORDS SUMMARY | 2024-10-25 10:58 | XMS_ITS | Encounter Summary ---
Author Organization [facility] Address [facility] [address] [place] [address] Phone Care Team Providers Care Plastic Process Technician Name Role Phone Eduardo Rutledge MD Primary Care Provid er Encounter Details Date Type Department Care Team (Late st Contact Info) Description 11/28/2019 Procedure Pass [facility] Cardiology Division [address] [facility], [address] [place] [address] Social History Tobacco Use Types Packs/Day Years [...] [facility] [place] Card[facility] Division [address] [facility], [address] [place] [address] 08/16/2024 Procedure Pass [facility] Cardiology Division [address] [facility], [address] [place] [address] 10/05/2024 Procedure Pass [facility] Cardiology Division [address] [facility], [address] [place] [address] 10/05/2024 Procedure Pass [facility] Cardiology Division [address] [facility], [address] [place] [address] 11/06/2024 9:30 AM EDT Appointment [facility] Cardiology Division [address] [facility], [address] [place] [address] Sumit Toledo MD, PhD 55 [facility] [place] [address] [email or web address]@[email or web address] 11/09/2024 2:00 PM EDT Appointment [facility] Cardiac EP 32 [facility], 5th Floor, [address] [place] [address] Sumit Toledo MD, PhD [address] [place] [address] [email or web address]@[email or web address] 11/09/2024 2:30 PM EDT Office Visit [facility] Cardiac Arrhythmia Service 32 [facility], 5th Floor, [address] [place] [address] Sumit Toledo MD, PhD [address] [place] [address] IMELDA@[email or web address] 11/09/2024 3:00 PM EDT Office Visit [facility] Heart Failure & Transplantation 32 [facility], 5th Floor, [address] [place] [address] Tal Stanley MD [address] [address] [email or web address] 02/05/2025 8:00 AM EST Appointment [facility] Cardiology Division 55 [facility], [address] [place] [address] Sumit Toledo MD, PhD [address] [place], [place] [address] [address] IMELDA@[email or web address] 05/07/2025 8:00 AM EDT Appointment [facility] Cardiology Division 55 [facility], [address] [place] [address] Sumit Toledo MD, PhD [address] [place], [place] [address] [place] [address] [email or web address]@[email or web address] documented as of this encounter Visit Diagnoses Not on filedocumented in this encounter Additional Health Concerns Infection Onset Date Last Indicated Resolved Time CoV-Risk 02/10/2024 02/10/2024 02/21/2024 1:22 AM EST RSV 02/10/2024 02/10/2024 02/17/2024 1:25 AM EST documented as of this encounter Care Teams Plastic Process Technician Relationship Specialty Start Date End Date Eduardo Rutledge MD [address] [place] [address] PCP - General Internal Medicine 06/19/18 documented as of this encounter Additional Source Comments The information contained in this document represents components of the legal health record. It is not the complete legal health record.[facility]
--- OUTSIDE RECORDS SUMMARY | 2024-10-25 10:58 | XMS_ITS | Encounter Summary ---
Author Organization [facility] Address [facility] [address] [place] [address] Phone Care Team Providers Care Rehabilitation Therapy Aide Name Role Phone Eduardo Rutledge MD Primary Care Provid er Encounter Details Date Type Department Care Team (Late st Contact Info) Description 05/13/2020 Procedure Pass [facility] Cardiology Division [address] [facility], [address] [place] [address] Social History Tobacco Use Types Packs/Day Years [...] st Contact Info) Description 07/09/2024 Procedure Pass [facility] Cardiology Division [address] [facility], [address] [place] [address] 08/16/2024 Procedure Pass [facility] Cardiology Division [address] [facility], [address] [place] [address] 10/05/2024 Procedure Pass [facility] Cardiology Division [address] [facility], [address] [place] [address] 10/05/2024 Procedure Pass [facility] Cardiology Division [address] [facility], [address] [place] [address] 11/06/2024 9:30 AM EDT Appointment [facility] Cardiology Division [address] [facility], [address] [place] [address] Sumit Toledo MD, PhD 55 [facility] [place] [address] [email or web address] 11/09/2024 2:00 PM EDT Appointment [facility] Cardiac EP 32 [facility], 5th Floor, [address] [place] [address] Sumit Toledo MD, PhD [address] [place] [address] [email or web address]@[email or web address] 11/09/2024 2:30 PM EDT Office Visit [facility] Cardiac Arrhythmia Service 32 [facility], 5th Floor, [address] [place] [address] Sumit Toledo MD, PhD [address] [place] [address] IMELDA@[email or web address] 11/09/2024 3:00 PM EDT Office Visit [facility] Heart Failure & Transplantation 32 [facility], 5th Floor, [address] [place] [address] Tal Stanley MD [address] [address] [email or web address] 02/05/2025 8:00 AM EST Appointment [facility] Cardiology Division 55 [facility], [address] [place] [address] Sumit Toledo MD, PhD [address] [place], [place] [address] [address] [email or web address]@[email or web address] 05/07/2025 8:00 AM EDT Appointment [facility] Cardiology Division 55 [facility], [address] [place] [address] Sumit Toledo MD, PhD [address] [place], [place] [address] [place] [address] [email or web address] documented as of this encounter Visit Diagnoses Not on filedocumented in this encounter Additional Health Concerns Infection Onset Date Last Indicated Resolved Time CoV-Risk 02/10/2024 02/10/2024 02/21/2024 1:22 AM EST RSV 02/10/2024 02/10/2024 02/17/2024 1:25 AM EST documented as of this encounter Care Teams Rehabilitation Therapy Aide Relationship Specialty Start Date End Date Eduardo Rutledge MD [address] [place] [address] PCP - General Internal Medicine 06/19/18 documented as of this encounter Additional Source Comments The information contained in this document represents components of the legal health record. It is not the complete legal health record.[facility]
--- OUTSIDE RECORDS SUMMARY | 2024-10-25 10:58 | XMS_ITS | Encounter Summary ---
Author Organization [facility] Address [facility] [address] [place] [address] Phone Care Team Providers Care Bench Patternmaker Metal Name Role Phone Eduardo Rutledge MD Primary Care Provid er Encounter Details Date Type Department Care Team (Late st Contact Info) Description 12/10/2020 Procedure Pass [facility] Cardiology Division [address] [facility], [address] [place] [address] Social History Tobacco Use Types Packs/Day Years [...] st Contact Info) Description 07/09/2024 Procedure Pass [facility] Cardiology Division [address] [facility], [address] [place] [address] 08/16/2024 Procedure Pass [facility] Cardiology Division [address] [facility], [address] [place] [address] 10/05/2024 Procedure Pass [facility] Cardiology Division [address] [facility], [address] [place] [address] 10/05/2024 Procedure Pass [facility] Cardiology Division [address] [facility], [address] [place] [address] 11/06/2024 9:30 AM EDT Appointment [facility] Cardiology Division [address] [facility], [address] [place] [address] Sumit Toledo MD, PhD 55 [facility] [place] [address] [email or web address]@[email or web address] 11/09/2024 2:00 PM EDT Appointment [facility] Cardiac EP 32 [facility], 5th Floor, [address] [place] [address] Sumit Toledo MD, PhD [address] [place] [address] [email or web address]@[email or web address] 11/09/2024 2:30 PM EDT Office Visit [facility] Cardiac Arrhythmia Service 32 [facility], 5th Floor, [address] [place] [address] Sumit Toledo MD, PhD [address] [place] [address] [email or web address]@[email or web address] 11/09/2024 3:00 PM EDT Office Visit [facility] Heart Failure & Transplantation 32 [facility], 5th Floor, [address] [place] [address] Tal Stanley MD [address] [address] [email or web address] 02/05/2025 8:00 AM EST Appointment [facility] Cardiology Division 55 [facility], [address] [place] [address] Sumit Toledo MD, PhD [address] [place], [place] [address] [address] IMELDA@[email or web address] 05/07/2025 8:00 AM EDT Appointment [facility] Cardiology Division 55 [facility], [address] [place] [address] Sumit Toledo MD, PhD [address] [place], [place] [address] [place] [address] [email or web address]@[email or web address] documented as of this encounter Visit Diagnoses Not on filedocumented in this encounter Additional Health Concerns Infection Onset Date Last Indicated Resolved Time CoV-Risk 02/10/2024 02/10/2024 02/21/2024 1:22 AM EST RSV 02/10/2024 02/10/2024 02/17/2024 1:25 AM EST documented as of this encounter Care Teams Bench Patternmaker Metal Relationship Specialty Start Date End Date Eduardo Rutledge MD [address] [place] [address] PCP - General Internal Medicine 06/19/18 documented as of this encounter Additional Source Comments The information contained in this document represents components of the legal health record. It is not the complete legal health record.[facility]
--- OUTSIDE RECORDS SUMMARY | 2024-10-25 10:58 | XMS_ITS | Encounter Summary ---
Author Organization [facility] Address [facility] [address] [facility] [address] [place] [address] Phone Care Team Providers Care Neonatal Social Worker Name Role Phone Eduardo Rutledge MD Primary Care Provid er Reason for Visit * Reason Comments Medication Refill Encounter Details Date Type Department Care Team (Late st Contact Info) Description 09/25/2022 Refill [facility] Cardiology Division [address] [place] [address], [address] [place] [address] Christ Ayon, DIONNE [address] [place] [address] [email or web address] Medication Refill Social History Tobacco Use Types [...] st Contact Info) Description 07/09/2024 Procedure Pass [facility] Cardiology Division 55 [facility], [address] [place] [address] 08/16/2024 Procedure Pass [facility] Cardiology Division 55 [facility], [address] [place] [address] 10/05/2024 Procedure Pass [facility] Cardiology Division 55 [facility], [address] [place] [address] 10/05/2024 Procedure Pass [facility] Cardiology Division 55 [facility], [address] [place] [address] 11/06/2024 9:30 AM EDT Appointment [facility] Cardiology Division 55 [facility], [address] [place] [address] Sumit Toledo MD, PhD [address] [place] [address] [email or web address] 11/09/2024 2:00 PM EDT Appointment [facility] Cardiac EP 32 [facility], 5th Floor, [address] [place] [address] Sumit Toledo MD, PhD [address] [place] [address] [email or web address]@[email or web address] 11/09/2024 2:30 PM EDT Office Visit [facility] Cardiac Arrhythmia Service 32 [facility], 5th Floor, [address] [place] [address] Sumit Toledo MD, PhD [address] [place] [address] [email or web address]@[email or web address] 11/09/2024 3:00 PM EDT Office Visit [facility] Heart Failure & Transplantation 32 [facility], 5th Floor, [address] [place] [address] Tal Stanley MD [address] [address] [email or web address] 02/05/2025 8:00 AM EST Appointment [facility] Cardiology Division 55 [facility], [address] [place] [address] Sumit Toledo MD, PhD [address] [place] [address] [email or web address]@[email or web address] 05/07/2025 8:00 AM EDT Appointment [facility] Cardiology Division 55 [facility], [address] [place] [address] Sumit Toledo MD, PhD [address] [place] [address] [email or web address]@[email or web address] documented as of this encounter Visit Diagnoses Diagnosis Persistent atrial fibrillation Atrial fibrillation documented in this encounter Additional Health Concerns Infection Onset Date Last Indicated Resolved Time CoV-Risk 02/10/2024 02/10/2024 02/21/2024 1:22 AM EST RSV 02/10/2024 02/10/2024 02/17/2024 1:25 AM EST documented as of this encounter Care Teams Neonatal Social Worker Relationship Specialty Start Date End Date Eduardo Rutledge MD [address] [place] [address] PCP - General Internal Medicine 06/19/18 documented as of this encounter Additional Source Comments The information contained in this document represents components of the legal health record. It is not the complete legal health record.[facility]
--- OUTSIDE RECORDS SUMMARY | 2024-10-25 10:58 | XMS_ITS | Encounter Summary ---
Author Organization [facility] Address [facility] [employer] [facility] [address] [place] [address] Phone Care Team Providers Care Manager Contact Name Role Phone Eduardo Rutledge MD Primary Care Provid er Encounter Details Date Type Department Care Team (Late st Contact Info) Description 06/10/2022 Procedure Pass [facility] Cardiology Division [address] [facility], [address] [place] [address] Social History Tobacco Use Types Packs/Day Years Used Date Smoking Tobacco: Never Education Answer Date Recorded Are you interested in more education? Not on mayte e 06/09/2022 Are you concerned about learning? Not on file 06/09/2022 No 06/09/2022 No 06/09/2022 Sex and Gender Information Value Date Recorded Sex Assigned at Male 05/22/2020 9:31 AM EDT Legal Sex Male 6:47 PM EST Gender Identity Male 05/22/2020 9:31 AM EDT Sexual Orientation Straight 05/22/2020 9: 31 AM EDT documented as of this encounter Plan of Treatment Upcoming Encounters Date Type Department Care Team (Late st Contact Info) Description 07/09/2024 Procedure Pass [facility] Cardiology Division 55 [facility], [address] [place] [address] 08/16/2024 Procedure Pass [facility] Cardiology Division [address] [facility], [address] [place] [address] 10/05/2024 Procedure Pass [facility] Cardiology Division 55 [facility], [address] [place] [address] 10/05/2024 Procedure Pass [facility] Cardiology Division 55 [facility], [address] [place] [address] 11/06/2024 9:30 AM EDT Appointment [facility] Cardiology Division [address] [facility], [address] [place] [address] Sumit Toledo MD, PhD [address] [place] [address] [email or web address] 11/09/2024 2:00 PM EDT Appointment [facility] Cardiac EP 32 [facility], 5th Floor, [address] [place] [address] Sumit Toledo MD, PhD [address] [place] [address] [email or web address] 11/09/2024 2:30 PM EDT Office Visit [facility] Cardiac Arrhythmia Service [address] [facility], 5th Floor, [address] [place] [address] Sumit Toledo MD, PhD [address] [place] [address] [email or web address] 11/09/2024 3:00 PM EDT Office Visit [facility] Heart Failure & Transplantation 32 [facility], 5th Floor, [address] [place] [address] Tal Stanley MD [address] [address] [email or web address] 02/05/2025 8:00 AM EST Appointment [facility] Cardiology Division [address] [facility], [address] [place] [address] Sumit Toledo MD, PhD [address] [place], [place] [address] [address] [email or web address] 05/07/2025 8:00 AM EDT Appointment [facility] Cardiology Division [address] [facility], [address] [place] [address] Sumit Toledo MD, PhD [address] [place] [address] [email or web address] documented as of this encounter Visit Diagnoses Not on filedocumented in this encounter Additional Health Concerns Infection Onset Date Last Indicated Resolved Time CoV-Risk 02/10/2024 02/10/2024 02/21/2024 1:22 AM EST RSV 02/10/2024 02/10/2024 02/17/2024 1:25 AM EST documented as of this encounter Care Teams Manager Contact Relationship Specialty Start Date End Date Eduardo Rutledge MD [address] [place] [address] PCP - General Internal Medicine 06/19/18 documented as of this encounter Additional Source Comments The information contained in this document represents components of the legal health record. It is not the complete legal health record.[facility]
--- OUTSIDE RECORDS SUMMARY | 2024-10-25 10:58 | XMS_ITS | Encounter Summary ---
Author Organization [facility] Address [facility] [address] [place] [address] Phone Care Team Providers Care Documentation Writer Name Role Phone Eduardo Rutledge MD Primary Care Provid er Encounter Details Date Type Department Care Team (Late st Contact Info) Description 09/09/2022 Procedure Pass [facility] Cardiology Division [address] [facility], [address] [place] [address] Social History Tobacco Use Types Packs/Day Years [...] st Contact Info) Description 07/09/2024 Procedure Pass [facility] Cardiology Division 55 [facility], [address] [place] [address] 08/16/2024 Procedure Pass [facility] Cardiology Division 55 [facility], [address] [place] [address] 10/05/2024 Procedure Pass [facility] Cardiology Division 55 [facility], [address] [place] [address] 10/05/2024 Procedure Pass [facility] Cardiology Division 55 [facility], [address] [place] [address] 11/06/2024 9:30 AM EDT Appointment [facility] Cardiology Division [address] [facility], [address] [place] [address] Sumit Toledo MD, PhD [address] [place], [place] [address] [address] [email or web address] 11/09/2024 2:00 PM EDT Appointment [facility] Cardiac EP 32 [facility], 5th Floor, [address] [place] [address] Sumit Toledo MD, PhD [address] [place], [place] [address] [address] [email or web address] 11/09/2024 2:30 PM EDT Office Visit [facility] Cardiac Arrhythmia Service 32 [facility], 5th Floor, [address] [place] [address] Sumit Toledo MD, PhD [address] [place], [place] [address] [address] [email or web address] 11/09/2024 3:00 PM EDT Office Visit [facility] Heart Failure & Transplantation 32 [facility], 5th Floor, [address] [place] [address] Tal Stanley MD 55 [facility] [address] [place] [address] [email or web address] [email or web address] 02/05/2025 8:00 AM EST Appointment [facility] Cardiology Division 55 [facility], [address] [place] [address] Sumit Toledo MD, PhD 55 [facility] [place] [address] [email or web address] 05/07/2025 8:00 AM EDT Appointment [facility] Cardiology Division [address] [facility], [address] [place] [address] Sumit Toledo MD, PhD 55 [facility] [place] [address] [email or web address] documented as of this encounter Visit Diagnoses Not on filedocumented in this encounter Additional Health Concerns Infection Onset Date Last Indicated Resolved Time CoV-Risk 02/10/2024 02/10/2024 02/21/2024 1:22 AM EST RSV 02/10/2024 02/10/2024 02/17/2024 1:25 AM EST documented as of this encounter Care Teams Documentation Writer Relationship Specialty Start Date End Date Eduardo Rutledge MD [address] [place] [address] [address] PCP - General Internal Medicine 06/19/18 documented as of this encounter Additional Source Comments The information contained in this document represents components of the legal health record. It is not the complete legal health record.[facility]
--- OUTSIDE RECORDS SUMMARY | 2024-10-25 10:58 | XMS_ITS | Encounter Summary ---
Author Organization [facility] Address [facility] [address] [place] [address] Phone Care Team Providers Care Associate Programmer Name Role Phone Eduardo Rutledge MD Primary Care Provid er Encounter Details Date Type Department Care Team (Late st Contact Info) Description 05/22/2020 Procedure Pass [facility] Cardiac EP [address] [facility], 5th Floor, [address] [place] [address] Social History Tobacco Use Types Packs/Day Years [...] st Contact Info) Description 07/09/2024 Procedure Pass [facility] Cardiology Division [address] [facility], [address] [place] [address] 08/16/2024 Procedure Pass [facility] Cardiology Division [address] [facility], [address] [place] [address] 10/05/2024 Procedure Pass [facility] Cardiology Division [address] [facility], [address] [place] [address] 10/05/2024 Procedure Pass [facility] Cardiology Division [address] [facility], [address] [place] [address] 11/06/2024 9:30 AM EDT Appointment [facility] Cardiology Division [address] [facility], [address] [place] [address] Sumit Toledo MD, PhD [address] [facility] [place] [address] [email or web address] 11/09/2024 2:00 PM EDT Appointment [facility] Cardiac EP [address] [facility], 5th Floor, [address] [place] [address] Sumit Toledo MD, PhD [address] [place] [address] [email or web address] 11/09/2024 2:30 PM EDT Office Visit [facility] Cardiac Arrhythmia Service [address] [facility], 5th Floor, [address] [place] [address] Sumit Toledo MD, PhD [address] [place] [address] [email or web address] 11/09/2024 3:00 PM EDT Office Visit [facility] Heart Failure & Transplantation [address] [facility], 5th Floor, [address] [place] [address] Tal Stanley MD [address] [address] [email or web address] 02/05/2025 8:00 AM EST Appointment [facility] Cardiology Division 55 [facility], [address] [place] [address] Sumit Toledo MD, PhD [address] [facility] [address] [email or web address] 05/07/2025 8:00 AM EDT Appointment [facility] Cardiology Division 55 [facility], [address] [place] [address] Sumit Toledo MD, PhD [address] [place], [place] [address] [place] [address] [email or web address] documented as of this encounter Visit Diagnoses Not on filedocumented in this encounter Additional Health Concerns Infection Onset Date Last Indicated Resolved Time CoV-Risk 02/10/2024 02/10/2024 02/21/2024 1:22 AM EST RSV 02/10/2024 02/10/2024 02/17/2024 1:25 AM EST documented as of this encounter Care Teams Associate Programmer Relationship Specialty Start Date End Date Eduardo Rutledge MD [address] [place] [address] PCP - General Internal Medicine 06/19/18 documented as of this encounter Additional Source Comments The information contained in this document represents components of the legal health record. It is not the complete legal health record.[facility]
--- OUTSIDE RECORDS SUMMARY | 2024-10-25 10:58 | XMS_ITS | Encounter Summary ---
Author Organization [facility] Address [facility] [address] [place] [address] Phone Care Team Providers Care Paraeducator Name Role Phone Eduardo Rutledge MD Primary Care Provid er Encounter Details Date Type Department Care Team (Late st Contact Info) Description 02/06/2024 Procedure Pass [facility] Cardiology Division [address] [place] [address], [address] [place] [address] Social History Tobacco Use Types Packs/Day Years [...] Info) Description 07/09/2024 Procedure Pass [facility] [place]iology Division [address] [facility], [address] [place] [address] 08/16/2024 Procedure Pass [facility] [place] Division [address] [facility], [address] [place] [address] 10/05/2024 Procedure Pass [facility] [place] Division [address] [facility], [address] [place] [address] 10/05/2024 Procedure Pass [facility] [place] Division [address] [facility], [address] [place] [address] 11/06/2024 9:30 AM EDT Appointment [facility] [place] 55 [facility], [address] [place] [address] Sumit Toledo MD, PhD [address] [place], [place] [address] [address] [email or web address] 11/09/2024 2:00 PM EDT Appointment [facility] [place] EP 32 [facility], 5th Floor, [address] [place] [address] Sumit Toledo MD, PhD [address] [place], [place] [address] [address] [email or web address] 11/09/2024 2:30 PM EDT Office Visit [facility] Cardiac Arrhythmia Service 32 [facility], 5th Floor, [address] [place] [address] Sumit Toledo MD, PhD [address] [place], [place] [address] [address] [email or web address] 11/09/2024 3:00 PM EDT Office Visit [facility] Heart Failure & Transplantation 32 [facility], 5th Floor, [address] [place] [address] Tal Stanley MD 55 [facility] [address] [place] [address] [email or web address] [email or web address] [email or web address] 02/05/2025 8:00 AM EST Appointment [facility] [place] Division [address] [facility], [address] [place] [address] Sumit Toledo MD, PhD 55 [facility] [place] [address] [email or web address] 05/07/2025 8:00 AM EDT Appointment [facility] [place] 55 [facility], [address] [place] [address] Sumit Toledo MD, PhD 55 [facility] [place] [address] [email or web address] documented as of this encounter Visit Diagnoses Not on filedocumented in this encounter Additional Health Concerns Infection Onset Date Last Indicated Resolved Time CoV-Risk 02/10/2024 02/10/2024 02/21/2024 1:22 AM EST RSV 02/10/2024 02/10/2024 02/17/2024 1:25 AM EST documented as of this encounter Care Teams Paraeducator Relationship Specialty Start Date End Date Eduardo Rutledge MD [address] [place] [address] [address] PCP - General Internal Medicine 06/19/18 documented as of this encounter Additional Source Comments The information contained in this document represents components of the legal health record. It is not the complete legal health record.[facility]
--- OUTSIDE RECORDS SUMMARY | 2024-10-25 10:58 | XMS_ITS | Encounter Summary ---
Author Organization [facility] Address [facility] [address] [place] [address] Phone Care Team Providers Care Aquatic Life Laborer Name Role Phone Eduardo Rutledge MD Primary Care Provid er Encounter Details Date Type Department Care Team (Late st Contact Info) Description 05/08/2024 Procedure Pass [facility] Cardiology Division [address] [facility], [address] [place] [address] Social History Tobacco Use Types Packs/Day Years [...] st Contact Info) Description 07/09/2024 Procedure Pass [facility] Cardiology Division 55 [facility], [address] [place] [address] 08/16/2024 Procedure Pass [facility] Cardiology Division 55 [facility], [address] [place] [address] 10/05/2024 Procedure Pass [facility] Cardiology Division 55 [facility], [address] [place] [address] 10/05/2024 Procedure Pass [facility] Cardiology Division 55 [facility], [address] [place] [address] 11/06/2024 9:30 AM EDT Appointment [facility] Cardiology Division 55 [facility], [address] [place] [address] Sumit Toledo MD, PhD [address] [place], [place] [address] [address] [email or web address] 11/09/2024 2:00 PM EDT Appointment [facility] Cardiac EP 32 [facility], 5th Floor, [address] [place] [address] Sumit Toledo MD, PhD [address] [place], [place] [address] [address] [email or web address] 11/09/2024 2:30 PM EDT Office Visit [facility] Cardiac Arrhythmia Service 32 [facility], 5th Floor, [address] [place] [address] Sumit Toledo MD, PhD [address] [place], [place] [address] [address] [email or web address] 11/09/2024 3:00 PM EDT Office Visit [facility] Heart Failure & Transplantation 32 [facility], 5th Floor, [address] [place] [address] Tal Stanley MD 55 [facility] [address] [place] [address] [email or web address] 02/05/2025 8:00 AM EST Appointment [facility] Cardiology Division 55 [facility], [address] [place] [address] Sumit Toledo MD, PhD 55 [facility] [place] [address] [email or web address] 05/07/2025 8:00 AM EDT Appointment [facility] Cardiology Division 55 [facility], [address] [place] [address] Sumit Toledo MD, PhD 55 [facility] [place] [address] [email or web address] documented as of this encounter Visit Diagnoses Not on filedocumented in this encounter Care Teams Aquatic Life Laborer Relationship Specialty Start Date End Date Eduardo Rutledge MD [address] [place] [address] PCP - General Internal Medicine 06/19/18 documented as of this encounter Additional Source Comments The information contained in this document represents components of the legal health record. It is not the complete legal health record.[facility]
--- OUTSIDE RECORDS SUMMARY | 2024-10-25 10:58 | XMS_ITS | Encounter Summary ---
Author Organization [facility] Address [facility] [address] [place] [address] Phone Care Team Providers Care Flanger Name Role Phone Eduardo Rutledge MD Primary Care Provid er Encounter Details Date Type Department Care Team (Late st Contact Info) Description 07/09/2024 Procedure Pass [facility] Cardiology Division 55 [facility], [address] [place] [address] Social History Tobacco Use Types Packs/Day Years [...] Contact Info) Description 07/09/2024 Procedure Pass [facility] Cardiology Division 55 [facility], [address] [place] [address] 08/16/2024 Procedure Pass [facility] Cardiology Division 55 [facility], [address] [place] [address] 10/05/2024 Procedure Pass [facility] Cardiology Division 55 [facility], [address] [place] [address] 10/05/2024 Procedure Pass [facility] Cardiology Division 55 [facility], [address] [place] [address] 11/06/2024 9:30 AM EDT Appointment [facility] Cardiology Division 55 [facility], [address] [place] [address] Sumit Toledo MD, PhD [address] [place], [place] [address] [address] [email or web address] 11/09/2024 2:00 PM EDT Appointment [facility] Cardiac EP 32 [facility], 5th Floor, [address] [place] [address] Sumit Toledo MD, PhD [address] [place], [place] [address] [address] [email or web address] 11/09/2024 2:30 PM EDT Office Visit [facility] Cardiac Arrhythmia Service 32 [facility], 5th Floor, [address] [place] [address] Sumit Toledo MD, PhD [address] [place], [place] [address] [address] [email or web address] 11/09/2024 3:00 PM EDT Office Visit [facility] Heart Failure & Transplantation 32 [facility], 5th Floor, [address] [place] [address] Tal Stanley MD 55 [facility] [address] [place] [address] [email or web address] 02/05/2025 8:00 AM EST Appointment [facility] Cardiology Division 55 [facility], [address] [place] [address] Sumit Toledo MD, PhD 55 [facility] [place] [address] [email or web address] 05/07/2025 8:00 AM EDT Appointment [facility] Cardiology Division 55 [facility], [address] [place] [address] Sumit Toledo MD, PhD 55 [facility] [place] [address] [email or web address] documented as of this encounter Visit Diagnoses Not on filedocumented in this encounter Care Teams Flanger Relationship Specialty Start Date End Date Eduardo Rutledge MD [address] [place] [address] PCP - General Internal Medicine 06/19/18 documented as of this encounter Additional Source Comments The information contained in this document represents components of the legal health record. It is not the complete legal health record.[facility]
--- OUTSIDE RECORDS SUMMARY | 2024-10-25 10:58 | XMS_ITS | Encounter Summary ---
Author Organization [facility] Address [facility] [address] [place] [address] Phone Care Team Providers Care Desktop Publishing Associate Name Role Phone Eduardo Rutledge MD Primary Care Provid er Encounter Details Date Type Department Care Team (Late st Contact Info) Description 09/10/2020 Procedure Pass [facility] Cardiology Division [address] [facility], [address] [place] [address] Social History Tobacco Use Types Packs/Day Years [...] st Contact Info) Description 07/09/2024 Procedure Pass [facility] Cardiology Division [address] [facility], [address] [place] [address] 08/16/2024 Procedure Pass [facility] Cardiology Division [address] [facility], [address] [place] [address] 10/05/2024 Procedure Pass [facility] Cardiology Division [address] [facility], [address] [place] [address] 10/05/2024 Procedure Pass [facility] Cardiology Division [address] [facility], [address] [place] [address] 11/06/2024 9:30 AM EDT Appointment [facility] Cardiology Division [address] [facility], [address] [place] [address] Sumit Toledo MD, PhD 55 [facility] [place] [address] [email or web address] 11/09/2024 2:00 PM EDT Appointment [facility] Cardiac EP 32 [facility], 5th Floor, [address] [place] [address] Sumit Toledo MD, PhD [address] [place] [address] [email or web address] 11/09/2024 2:30 PM EDT Office Visit [facility] Cardiac Arrhythmia Service [address] [facility], 5th Floor, [address] [place] [address] Sumit Toledo MD, PhD [address] [place] [address] [email or web address] 11/09/2024 3:00 PM EDT Office Visit [facility] Heart Failure & Transplantation 32 [facility], 5th Floor, [address] [place] [address] Tal Stanley MD [address] [address] [email or web address] 02/05/2025 8:00 AM EST Appointment [facility] Cardiology Division 55 [facility], [address] [place] [address] Sumit Toledo MD, PhD [address] [place], [place] [address] [address] [email or web address] 05/07/2025 8:00 AM EDT Appointment [facility] Cardiology Division 55 [facility], [address] [place] [address] Sumit Toledo MD, PhD [address] [place], [place] [id number] [place] [address] [email or web address] documented as of this encounter Visit Diagnoses Not on filedocumented in this encounter Additional Health Concerns Infection Onset Date Last Indicated Resolved Time CoV-Risk 02/10/2024 02/10/2024 02/21/2024 1:22 AM EST RSV 02/10/2024 02/10/2024 02/17/2024 1:25 AM EST documented as of this encounter Care Teams Desktop Publishing Associate Relationship Specialty Start Date End Date Eduardo Rutledge MD [address] [place] [phone] PCP - General Internal Medicine 06/19/18 documented as of this encounter Additional Source Comments The information contained in this document represents components of the legal health record. It is not the complete legal health record.[facility]
--- OUTSIDE RECORDS SUMMARY | 2024-10-25 10:58 | XMS_ITS | Encounter Summary ---
Author Organization [facility] Address [facility] [address] [place] [address] Phone Care Team Providers Care Documentation Manager Name Role Phone Eduardo Rutledge MD Primary Care Provid er Encounter Details Date Type Department Care Team (Late st Contact Info) Description 09/07/2023 Procedure Pass [facility] Cardiology Division 55 [facility], [address] [place] [address] Social History Tobacco Use Types Packs/Day Years [...] [facility] [place] [facility] 55 [facility], [address] [place] [address] 08/16/2024 Procedure Pass [facility] Cardiology Division 55 [facility], [address] [place] [address] 10/05/2024 Procedure Pass [facility] Cardiology Division 55 [facility], [address] [place] [address] 10/05/2024 Procedure Pass [facility] Cardiology Division 55 [facility], [address] [place] [address] 11/06/2024 9:30 AM EDT Appointment [facility] Cardiology Division 55 [facility], [address] [place] [address] Sumit Toledo MD, PhD [address] [place], [place] [address] [address] [email or web address] 11/09/2024 2:00 PM EDT Appointment [facility] Cardiac EP 32 [facility], 5th Floor, [address] [place] [address] Sumit Toledo MD, PhD [address] [place], [place] [address] [address] [email or web address] 11/09/2024 2:30 PM EDT Office Visit [facility] Cardiac Arrhythmia Service 32 [facility], 5th Floor, [address] [place] [address] Sumit Toledo MD, PhD [address] [place], [place] [address] [address] [email or web address] 11/09/2024 3:00 PM EDT Office Visit [facility] Heart Failure & Transplantation 32 [facility], 5th Floor, [address] [place] [address] Tal Stanley MD 55 [facility] [address] [place] [address] [email or web address] 02/05/2025 8:00 AM EST Appointment [facility] Cardiology Division 55 [facility], [address] [place] [address] Sumit Toledo MD, PhD 55 [facility] [place] [address] [email or web address] 05/07/2025 8:00 AM EDT Appointment [facility] Cardiology Division 55 [facility], [address] [place] [address] Sumit Toledo MD, PhD 55 [facility] [place] [address] [email or web address] documented as of this encounter Visit Diagnoses Not on filedocumented in this encounter Additional Health Concerns Infection Onset Date Last Indicated Resolved Time CoV-Risk 02/10/2024 02/10/2024 02/21/2024 1:22 AM EST RSV 02/10/2024 02/10/2024 02/17/2024 1:25 AM EST documented as of this encounter Care Teams Documentation Manager Relationship Specialty Start Date End Date Eduardo Rutledge MD [address] [place] [address] [address] PCP - General Internal Medicine 06/19/18 documented as of this encounter Additional Source Comments The information contained in this document represents components of the legal health record. It is not the complete legal health record.[facility]
--- OUTSIDE RECORDS SUMMARY | 2024-10-25 10:58 | XMS_ITS | Encounter Summary ---
Author Organization [facility] Address [facility] [address] [place] [address] Phone Care Team Providers Care Personal Security Specialist Name Role Phone Eduardo Rutledge MD Primary Care Provid er Encounter Details Date Type Department Care Team (Late st Contact Info) Description 04/11/2020 Procedure Pass [facility] Cardiology Division 55 [facility], [address] [place] [address] Social History Tobacco Use Types Packs/Day Years [...] st Contact Info) Description 07/09/2024 Procedure Pass [facility] Cardiology Division 55 [facility], [address] [place] [address] 08/16/2024 Procedure Pass [facility] Cardiology Division 55 [facility], [address] [place] [address] 10/05/2024 Procedure Pass [facility] Cardiology Division 55 [facility], [address] [place] [address] 10/05/2024 Procedure Pass [facility] Cardiology Division 55 [facility], [address] [place] [address] 11/06/2024 9:30 AM EDT Appointment [facility] Cardiology Division 55 [facility], [address] [place] [address] Sumit Toledo MD, PhD 55 [facility] [place] [address] [email or web address] 11/09/2024 2:00 PM EDT Appointment [facility] Cardiac EP 32 [facility], 5th Floor, [address] [place] [address] Sumit Toledo MD, PhD [address] [place] [address] [email or web address] 11/09/2024 2:30 PM EDT Office Visit [facility] Cardiac Arrhythmia Service 32 [facility], 5th Floor, [address] [place] [address] Sumit Toledo MD, PhD [address] [place] [address] [email or web address] 11/09/2024 3:00 PM EDT Office Visit [facility] Heart Failure & Transplantation 32 [facility], 5th Floor, [address] [place] [address] Tal Stanley MD [address] [address] [email or web address] 02/05/2025 8:00 AM EST Appointment [facility] Cardiology Division 55 [facility], [address] [place] [address] Sumit Toledo MD, PhD [address] [place], [place] [address] [address] [email or web address] 05/07/2025 8:00 AM EDT Appointment [facility] Cardiology Division 55 [facility], [address] [place] [address] Sumit Toledo MD, PhD [address] [place], [place] [address] [place] [address] [email or web address] documented as of this encounter Visit Diagnoses Not on filedocumented in this encounter Additional Health Concerns Infection Onset Date Last Indicated Resolved Time CoV-Risk 02/10/2024 02/10/2024 02/21/2024 1:22 AM EST RSV 02/10/2024 02/10/2024 02/17/2024 1:25 AM EST documented as of this encounter Care Teams Personal Security Specialist Relationship Specialty Start Date End Date Eduardo Rutledge MD [address] [place] [phone] PCP - General Internal Medicine 06/19/18 documented as of this encounter Additional Source Comments The information contained in this document represents components of the legal health record. It is not the complete legal health record.[facility]
--- OUTSIDE RECORDS SUMMARY | 2024-10-25 10:58 | XMS_ITS | Encounter Summary ---
Author Organization [facility] Address [facility] [address] [place] [address] Phone Care Team Providers Care Sealer Operator Name Role Phone Eduardo Rutledge MD Primary Care Provid er Encounter Details Date Type Department Care Team (Late st Contact Info) Description 05/17/2020 Procedure Pass [facility] Cardiac US 55 [place] [address] Social History Tobacco Use Types Packs/Day Years [...] st Contact Info) Description 07/09/2024 Procedure Pass [facility] Cardiology Division 55 [facility], [address] [place] [address] 08/16/2024 Procedure Pass [facility] Cardiology Division 55 [facility], [address] [place] [address] 10/05/2024 Procedure Pass [facility] Cardiology Division 55 [facility], [address] [place] [address] 10/05/2024 Procedure Pass [facility] Cardiology Division 55 [facility], [address] [place] [address] 11/06/2024 9:30 AM EDT Appointment [facility] Cardiology Division 55 [facility], [address] [place] [address] Sumit Toledo MD, PhD [address] [place] [address] [email or web address] 11/09/2024 2:00 PM EDT Appointment [facility] Cardiac EP 32 [facility], 5th Floor, [address] [place] [address] Sumit Toledo MD, PhD [address] [place] [address] [email or web address] 11/09/2024 2:30 PM EDT Office Visit [facility] Cardiac Arrhythmia Service 32 [facility], 5th Floor, [address] [place] [address] Sumit Toledo MD, PhD [address] [place] [address] [email or web address] 11/09/2024 3:00 PM EDT Office Visit [facility] Heart Failure & Transplantation 32 [facility], 5th Floor, [address] [place] [address] Tal Stanley MD [address] [place] [address] [email or web address] 02/05/2025 8:00 AM EST Appointment [facility] Cardiology Division 55 [facility], [address] [place] [address] Sumit Toledo MD, PhD [address] [place] [address] [email or web address] 05/07/2025 8:00 AM EDT Appointment [facility] Cardiology Division 55 [facility], [address] [place] [address] Sumit Toledo MD, PhD [address] [place], [place] [address] [address] [email or web address] documented as of this encounter Visit Diagnoses Not on filedocumented in this encounter Additional Health Concerns Infection Onset Date Last Indicated Resolved Time CoV-Risk 02/10/2024 02/10/2024 02/21/2024 1:22 AM EST RSV 02/10/2024 02/10/2024 02/17/2024 1:25 AM EST documented as of this encounter Care Teams Sealer Operator Relationship Specialty Start Date End Date Eduardo Rutledge MD [address] [place] [phone] PCP - General Internal Medicine 06/19/18 documented as of this encounter Additional Source Comments The information contained in this document represents components of the legal health record. It is not the complete legal health record.[facility]
--- OUTSIDE RECORDS SUMMARY | 2024-10-25 10:59 | XMS_ITS | Encounter Summary ---
Author Organization [facility] Address [facility] [address] [place] [address] Phone Care Team Providers Care Documentation Engineer Name Role Phone Eduardo Rutledge MD Primary Care Provid er Encounter Details Date Type Department Care Team (Late st Contact Info) Description 05/13/2020 Procedure Pass [facility] EP Pacer Lab 55 [facility], Floor 1, [address] [place] [address] Social History Tobacco Use Types Packs/Day Years [...] Contact Info) Description 07/09/2024 Procedure Pass [facility] Cardiology Division 55 [facility], [address] [place] [address] 08/16/2024 Procedure Pass [facility] Cardiology Division 55 [facility], [address] [place] [address] 10/05/2024 Procedure Pass [facility] Cardiology Division 55 [facility], [address] [place] [address] 10/05/2024 Procedure Pass [facility] Cardiology Division 55 [facility], [address] [place] [address] 11/06/2024 9:30 AM EDT Appointment [facility] Cardiology Division 55 [facility], [address] [place] [address] Sumit Toledo MD, PhD [address] [place] [phone] [email or web address] 11/09/2024 2:00 PM EDT Appointment [facility] Cardiac EP 32 [facility], 5th Floor, [address] [place] [address] Sumit Toledo MD, PhD [address] [place] [phone] [email or web address] 11/09/2024 2:30 PM EDT Office Visit [facility] Cardiac Arrhythmia Service 32 [facility], 5th Floor, [address] [place] [address] Sumit Toledo MD, PhD [address] [place] [address] [email or web address] 11/09/2024 3:00 PM EDT Office Visit [facility] Heart Failure & Transplantation 32 [facility], 5th Floor, [address] [place] [address] Tal Stanley MD [address] [place] [address] [email or web address] 02/05/2025 8:00 AM EST Appointment [facility] Cardiology Division 55 [facility], [address] [place] [address] Sumit Toledo MD, PhD [address] [place], [place] [address] [address] [email or web address] 05/07/2025 8:00 AM EDT Appointment [facility] Cardiology Division 55 [facility], [address] [place] [address] Sumit Toledo MD, PhD [address] [place], [place] [address] [address] [email or web address] documented as of this encounter Visit Diagnoses Not on filedocumented in this encounter Additional Health Concerns Infection Onset Date Last Indicated Resolved Time CoV-Risk 02/10/2024 02/10/2024 02/21/2024 1:22 AM EST RSV 02/10/2024 02/10/2024 02/17/2024 1:25 AM EST documented as of this encounter Care Teams Documentation Engineer Relationship Specialty Start Date End Date Eduardo Rutledge MD [address] [place] [phone] PCP - General Internal Medicine 06/19/18 documented as of this encounter Additional Source Comments The information contained in this document represents components of the legal health record. It is not the complete legal health record.[facility]
--- OUTSIDE RECORDS SUMMARY | 2024-10-25 10:59 | XMS_ITS | Encounter Summary ---
Author Organization [facility] Address [facility] [address] [place] [address] Phone Care Team Providers Care Personal Injury Attorney Name Role Phone Eduardo Rutledge MD Primary Care Provid er Encounter Details Date Type Department Care Team (Late st Contact Info) Description 12/09/2021 Procedure Pass [facility] Cardiology Division 55 [facility], [address] [place] [address] Social History Tobacco Use Types Packs/Day Years [...] [facility] 55 [facility], [address] [place] [address] 08/16/2024 Procedure Pass [facility] Cardiology Division 55 [facility], [address] [place] [address] 10/05/2024 Procedure Pass [facility] Cardiology Division 55 [facility], [address] [place] [address] 10/05/2024 Procedure Pass [facility] Cardiology Division 55 [facility], [address] [place] [address] 11/06/2024 9:30 AM EDT Appointment [facility] Cardiology Division 55 [facility], [address] [place] [address] Sumit Toledo MD, PhD 55 [facility]9 [place] [address] [email or web address] 11/09/2024 2:00 PM EDT Appointment [facility] Cardiac EP 32 [facility], 5th Floor, [address] [place] [address] Sumit Toledo MD, PhD [address] [place] [phone] [email or web address] 11/09/2024 2:30 PM EDT Office Visit [facility] Cardiac Arrhythmia Service 32 [facility], 5th Floor, [address] [place] [address] Sumit Toledo MD, PhD [address] [place] [address] [email or web address] 11/09/2024 3:00 PM EDT Office Visit [facility] Heart Failure & Transplantation 32 [facility], 5th Floor, [address] [place] [address] Tal Stanley MD [address] [address] [email or web address] 02/05/2025 8:00 AM EST Appointment [facility] Cardiology Division 55 [facility], [address] [place] [address] Sumit Toledo MD, PhD [address] [place], [place] [address] [address] [email or web address] 05/07/2025 8:00 AM EDT Appointment [facility] Cardiology Division [address] [facility], [address] [place] [address] Sumit Toledo MD, PhD [address] [place], [place] [id number] [place] [address] [email or web address] documented as of this encounter Visit Diagnoses Not on filedocumented in this encounter Additional Health Concerns Infection Onset Date Last Indicated Resolved Time CoV-Risk 02/10/2024 02/10/2024 02/21/2024 1:22 AM EST RSV 02/10/2024 02/10/2024 02/17/2024 1:25 AM EST documented as of this encounter Care Teams Personal Injury Attorney Relationship Specialty Start Date End Date Eduardo Rutledge MD [address] [place] [address] PCP - General Internal Medicine 06/19/18 documented as of this encounter Additional Source Comments The information contained in this document represents components of the legal health record. It is not the complete legal health record.[facility]
--- OUTSIDE RECORDS SUMMARY | 2024-10-25 10:59 | XMS_ITS | Encounter Summary ---
Author Organization [facility] Address [facility] [address] [place] [address] Phone Care Team Providers Care Data Migration Consultant Name Role Phone Eduardo Rutledge MD Primary Care Provid er Encounter Details Date Type Department Care Team (Late st Contact Info) Description 12/07/2023 Procedure Pass [facility] Cardiology Division [address] [place] [address], [address] [place] [address] Social History Tobacco Use Types Packs/Day Years [...] st Contact Info) Description 07/09/2024 Procedure Pass [facility] Cardiology Division [address] [facility], [address] [place] [address] 08/16/2024 Procedure Pass [facility] Cardiology Division [address] [facility], [address] [place] [address] 10/05/2024 Procedure Pass [facility] Cardiology Division [address] [facility], [address] [place] [address] 10/05/2024 Procedure Pass [facility] Cardiology Division [address] [facility], [address] [place] [address] 11/06/2024 9:30 AM EDT Appointment [facility] Cardiology Division 55 [facility], [address] [place] [address] Sumit Toledo MD, PhD [address] [place], [place] [id number] [address] [email or web address] 11/09/2024 2:00 PM EDT Appointment [facility] Cardiac EP 32 [facility], 5th Floor, [address] [place] [address] Sumit Toledo MD, PhD [address] [place], [place] [id number] [address] [email or web address] 11/09/2024 2:30 PM EDT Office Visit [facility] Cardiac Arrhythmia Service [address] [facility], 5th Floor, [address] [place] [address] Sumit Toledo MD, PhD [address] [place], [place] [address] [address] [email or web address] 11/09/2024 3:00 PM EDT Office Visit [facility] Heart Failure & Transplantation 32 [facility], 5th Floor, [address] [place] [address] Tal Stanley MD 55 [facility] [address] [place] [address] [email or web address] 02/05/2025 8:00 AM EST Appointment [facility] Cardiology Division [address] [facility], [address] [place] [address] Sumit Toledo MD, PhD 55 [facility] [place] [address] [email or web address] 05/07/2025 8:00 AM EDT Appointment [facility] Cardiology Division 55 [facility], [address] [place] [address] Sumit Toledo MD, PhD 55 [facility] [place] [address] [email or web address] documented as of this encounter Visit Diagnoses Not on filedocumented in this encounter Additional Health Concerns Infection Onset Date Last Indicated Resolved Time CoV-Risk 02/10/2024 02/10/2024 02/21/2024 1:22 AM EST RSV 02/10/2024 02/10/2024 02/17/2024 1:25 AM EST documented as of this encounter Care Teams Data Migration Consultant Relationship Specialty Start Date End Date Eduardo Rutledge MD [address] [place] [address] [address] PCP - General Internal Medicine 06/19/18 documented as of this encounter Additional Source Comments The information contained in this document represents components of the legal health record. It is not the complete legal health record.[facility]
--- OUTSIDE RECORDS SUMMARY | 2024-10-25 10:59 | XMS_ITS | Encounter Summary ---
Author Organization [facility] Address [facility] [address] [place] [address] Phone Care Team Providers Care Reading Aide Name Role Phone Eduardo Rutledge MD Primary Care Provid er Encounter Details Date Type Department Care Team (Late st Contact Info) Description 05/19/2020 Procedure Pass [facility] Cardiology Division 55 [facility], [address] [place] [address] Social History Tobacco Use Types Packs/Day Years [...] Contact Info) Description 07/09/2024 Procedure Pass [facility] Cardiology Division 55 [facility], [address] [place] [address] 08/16/2024 Procedure Pass [facility] Cardiology Division 55 [facility], [address] [place] [address] 10/05/2024 Procedure Pass [facility] Cardiology Division 55 [facility], [address] [place] [address] 10/05/2024 Procedure Pass [facility] Cardiology Division 55 [facility], [address] [place] [address] 11/06/2024 9:30 AM EDT Appointment [facility] Cardiology Division 55 [facility], [address] [place] [address] Sumit Toledo MD, PhD 55 [facility] [place] [address] [email or web address] 11/09/2024 2:00 PM EDT Appointment [facility] Cardiac EP 32 [facility], 5th Floor, [address] [place] [address] Sumit Toledo MD, PhD [address] [place] [id number] [email or web address] 11/09/2024 2:30 PM EDT Office Visit [facility] Cardiac Arrhythmia Service 32 [facility], 5th Floor, [address] [place] [address] Sumit Toledo MD, PhD [address] [place] [id number] [email or web address] 11/09/2024 3:00 PM EDT Office Visit [facility] Heart Failure & Transplantation 32 [facility], 5th Floor, [address] [place] [address] Tal Stanley MD [address] [address] [email or web address] 02/05/2025 8:00 AM EST Appointment [facility] Cardiology Division 55 [facility], [address] [place] [address] Sumit Toledo MD, PhD [address] [place], [place] [address] [address] [email or web address] 05/07/2025 8:00 AM EDT Appointment [facility] Cardiology Division 55 [facility], [address] [place] [address] Sumit Toledo MD, PhD [address] [place], [place] [address] [place] [address] [email or web address] documented as of this encounter Visit Diagnoses Not on filedocumented in this encounter Additional Health Concerns Infection Onset Date Last Indicated Resolved Time CoV-Risk 02/10/2024 02/10/2024 02/21/2024 1:22 AM EST RSV 02/10/2024 02/10/2024 02/17/2024 1:25 AM EST documented as of this encounter Care Teams Reading Aide Relationship Specialty Start Date End Date Eduardo Rutledge MD [address] [place] [address] PCP - General Internal Medicine 06/19/18 documented as of this encounter Additional Source Comments The information contained in this document represents components of the legal health record. It is not the complete legal health record.[facility]
--- OUTSIDE RECORDS SUMMARY | 2024-10-25 10:59 | XMS_ITS | Encounter Summary ---
Author Organization [facility] Address [facility] [address] [place] [address] Phone Care Team Providers Care Ip Technology Transactions Attorney Name Role Phone Eduardo Rutledge MD Primary Care Provid er Encounter Details Date Type Department Care Team (Late st Contact Info) Description 10/21/2023 Procedure Pass [facility] [place] [address] [facility], [address] [place] [address] Social History Tobacco Use Types Packs/Day Years [...] st Contact Info) Description 07/09/2024 Procedure Pass [facility] [place] 55 [facility], [address] [place] [address] 08/16/2024 Procedure Pass [facility] [place] 55 [facility], [address] [place] [address] 10/05/2024 Procedure Pass [facility] [place] 55 [facility], [address] [place] [address] 10/05/2024 Procedure Pass [facility] [place] 55 [facility], [address] [place] [address] 11/06/2024 9:30 AM EDT Appointment [facility] [place] 55 [facility], [address] [place] [address] Sumit Toledo MD, PhD [address] [place], [place] [phone] [address] [email or web address] 11/09/2024 2:00 PM EDT Appointment [facility] [place] 32 [facility], 5th Floor, [address] [place] [address] Sumit Toledo MD, PhD [address] [place], [place] [address] [address] [email or web address] 11/09/2024 2:30 PM EDT Office Visit [facility] [place]iac Arrhythmia Service 32 [facility], 5th Floor, [address] [place] [address] Sumit Toledo MD, PhD [address] [place], [place] [address] [address] [email or web address] 11/09/2024 3:00 PM EDT Office Visit [facility] Heart Failure & Transplantation 32 [facility], 5th Floor, [address] [place] [address] Tal Stanley MD 55 [facility] [address] [place] [address] [email or web address] 02/05/2025 8:00 AM EST Appointment [facility] [place] 55 [facility], [address] [place] [address] Sumit Toledo MD, PhD 55 [facility] [place] [address] [email or web address] 05/07/2025 8:00 AM EDT Appointment [facility] [place] 55 [facility], [address] [place] [address] Sumit Toledo MD, PhD 55 [facility] [place] [address] [email or web address] documented as of this encounter Visit Diagnoses Not on filedocumented in this encounter Additional Health Concerns Infection Onset Date Last Indicated Resolved Time CoV-Risk 02/10/2024 02/10/2024 02/21/2024 1:22 AM EST RSV 02/10/2024 02/10/2024 02/17/2024 1:25 AM EST documented as of this encounter Care Teams Ip Technology Transactions Attorney Relationship Specialty Start Date End Date Eduardo Rutledge MD [address] [place] [address] [address] PCP - General Internal Medicine 06/19/18 documented as of this encounter Additional Source Comments The information contained in this document represents components of the legal health record. It is not the complete legal health record.[facility]
--- OUTSIDE RECORDS SUMMARY | 2024-10-25 10:59 | XMS_ITS | Clinical Summary ---
Author Organization [facility] Address [address] [place] [id number] Phone Care Team Providers Care Dock Manager Name Role Phone Eduardo Rutledge MD Primary Care Provid er Allergies Active Allergy Reactions Criticality Noted Date Comments Penicillins GI Upset 05/12/2011 Medications warfarin (COUMADIN) 5 MG tablet Take 5 mg by mouth daily. 5mg 6 days a week, 2.5mg on Active furosemide (LASIX) 20 MG tablet Take 0.5 tablets (10 mg total) by mouth daily as needed (for weight gain). 45 tablet 3 2 Active Additional Information Patient not taking.Reported on 02/10/2024 digoxin (LANOXIN) 125 mcg tabletIndication s:Persistent atrial fibrillation TAKE 1 TABLET BY MOUTH EVERY DAY 90 tablet 3 4 Active sacubitriL-valsa rtan (ENTRESTO) 24-26 mg per tablet Take 1 tablet by mouth 2 (two) times a day. 180 tablet 3 5 Active metoprolol succinate (TOPROL-XL) 50 MG 24 hr tablet Take 3 tablets (150 mg total) by mouth 2 (two) times a day. 540 tablet 3 5 Active Active Problems Problem Noted Date Diagnosed Date Idiopathic hypotension 06/20/2017 Assessment & Plan (06/20/2017 11:50 AM EDT): -- BP low today, he is asymptomatic -- may be dry, decrease lasix as above -- told him to monitor BP at home, if SBP persistently < 90 mmHg may need to consider switching coreg to toprol, he will call in 1-2 weeks to check in Polyarthritis 02/28/2017 Assessment & Plan (02/28/2017 10:12 AM EST): -- new polyarticular arthritis involving wrists, hands, ankles -- unclear whether non-inflammatory vs inflammatory (no obvious red hot swollen joints on today's exam) -- broad labs including RF, CRP, ESR today -- encouraged to see PCP for further w/u and consider rheum evaluation as necessary, he has appt for next week Cold intolerance 02/28/2017 Assessment & Plan (02/28/2017 10:12 AM EST): -- component of cold intolerance and weight loss -- check TSH Chronic systolic heart failure 12/13/2016 Assessment & Plan (06/16/2020 11:57 AM EDT): -- NYHA class II, ACC/AHA stage C -- euvolemic based on exam -- if we start on SGLT2i, would favor d/c lasix 10mg daily as he often has to hydrate to keep up and prevent LH Assessment & Plan (06/11/2019 8:20 AM EDT): -- NYHA class II, ACC/AHA stage C -- euvolemic based on weights -- lasix 10mg daily -- labs including chem 7 and digoxin level to be done with next INR check at [facility] we will coordinate Assessment & Plan (06/19/2018 9:04 AM EDT): -- NYHA class II, ACC/AHA stage C -- euvolemic to dry on exam with BP on the low side -- lasix 10mg daily -- labs today including chem 7 and digoxin level Assessment & Plan (06/20/2017 11:49 AM EDT): -- NYHA class II, ACC/AHA stage C -- euvolemic to dry on exam with hypotension - adjust lasix to 10mg if weight < 206 lbs at home, and 20mg daily if weight >= 206 lbs at home Assessment & Plan (02/28/2017 10:10 AM EST): -- despite increased NAGEL, on exam he appears clinically euvolemic with JVP that is low and lungs that are clear. We need to look for other causes of NAGEL and work up as below -- no change in diuretics, check labs today including NT-proBNP to verify clinical impression Assessment & Plan (12/13/2016 8:39 PM EST): -- NYHA class I-II currently -- euvolemic on exam -- no change in diuretics, check labs today Permanent atrial fibrillation 02/15/2016 Overview (02/15/2016): Chronic AF CHADS/VASC score of 3 (LV dysfunction, HTN, and age) on coumadin asymptomatic Assessment & Plan (07/02/2022 12:43 PM EDT): He is rate controlled with chronic AF. He is anticoagulated on warfarin with no bleeding issues. His INR is followed by his PCP. We have discussed switching to a DOAC, I.e., Eliquis, and reviewed the benefits of DOACs including superior stroke prevention and lower bleeding risk. However he feels he is tolerating warfarin well, and would like to continue this at this time. Assessment & Plan (06/30/2021 5:39 PM EDT): He presents today for f/u feeling well with no new cardiac complaints. He remains asx with chronic AF and is rate controlled on coreg 50mg BID. He is anticoagulated on Warfarin. We discussed DOACs however he has been on Warfarin for quite some time and tolerates it well. He would like to continue this. He is followed at the Coumadin clinic at [facility]. Assessment & Plan (06/27/2020 12:54 PM EDT): Patient denies any AF related symptoms. He is rate controlled on Coreg 50mg BID and Digoxin 125mcg. Last Dig level 0.9 on 05/02/20. He is appropriately anticoagulated on Warfarin, which is managed by his PCP. His INRs are followed at [facility]. He reports tolerating the warfarin well, and is not interested in changing to a NOAC. Continue current medication regimen and f/u in 1 year. Assessment & Plan (06/16/2020 11:58 AM EDT): -- on coumadin, on coreg 50 bid -- VETERINARY MEDICINE DOCTOR-D, no shocks in past, Bi-V paced approx 60% of time -- followed by Dr. Toledo Assessment & Plan (04/26/2020 3:37 PM EDT): Continue Coreg 50mg BID and Digoxin 125mcg for rate control. Will update digoxin level. Assessment & Plan (06/11/2019 8:21 AM EDT): -- on coumadin, on coreg 50 bid -- VETERINARY MEDICINE DOCTOR-D, no shocks in past, Bi-V paced approx 60% of time -- followed by Dr. Toledo Assessment & Plan (10/06/2018 1:17 PM EDT): Discussed the benefits and new AHA recommendations for NOACs as first line medication for AC in AF They will consider the information and let us know if they want to switch Assessment & Plan (06/19/2018 9:05 AM EDT): -- on coumadin, HR 73 at rest on coreg 50 bid -- VETERINARY MEDICINE DOCTOR-D, no shocks in past, Bi-V paced approx 60% of time -- followed by Dr. Toledo Assessment & Plan (09/16/2017 4:22 PM EDT): Discussed the NOACs He will check his insurance Assessment & Plan (06/20/2017 11:48 AM EDT): -- on coumadin, HR 75 at rest on coreg 50 bid -- VETERINARY MEDICINE DOCTOR-D, no shocks in past Assessment & Plan (02/28/2017 10:09 AM EST): -- on coumadin, HR a bit high today, acute illness needs to be worked up as below -- VETERINARY MEDICINE DOCTOR-D, no shocks in past Assessment & Plan (12/13/2016 8:39 PM EST): -- on coumadin, HR reasonable -- VETERINARY MEDICINE DOCTOR-D, no shocks in past Assessment & Plan (09/12/2016 9:36 AM EDT): Continue current Rx Not interested in NOACs at this time Assessment & Plan (02/15/2016 10:18 AM EST): Continue current Rx Non-ischemic cardiomyopathy 02/15/2016 Overview (02/15/2016): EF 29% - 27% VETERINARY MEDICINE DOCTOR-D [facility] placed 06/20/2013 Medications optimized - unable to tolerate CARLITOS 2/2 hypotension Assessment & Plan (06/16/2020 11:58 AM EDT): -- NICMP LVEF 27% --> 48% some recovery, repeat TTE pending from today -- etiology not clear, negative w/u to date -- neurohormonal blockade: continue carvedilol and spironolactone at target doses, no BP room for ACEI. If LVEF still < 50% on today's echo, will add SGLT2 inhibitor to max out GDMT, likely d/c lasix. -- s/p VETERINARY MEDICINE DOCTOR-D Assessment & Plan (06/11/2019 8:20 AM EDT): -- NICMP LVEF 27% --> 48% some recovery, repeat TTE at next visit with me in 1 year to follow on GDMT -- etiology not clear, negative w/u to date -- neurohormonal blockade: continue carvedilol and spironolactone at target doses, did not have BP room for ACEI in the past. Now that LVEF has recovered will maintain on current NH blockade for now, if LVEF lower in future could consider switching coreg to toprol to see if BP room for ACEI. -- s/p VETERINARY MEDICINE DOCTOR-D Assessment & Plan (06/19/2018 9:04 AM EDT): -- NICMP LVEF 27% --> 38% some recovery, repeat TTE ordered for 09/2018 to follow on GDMT -- etiology not clear, negative w/u to date -- neurohormonal blockade: continue carvedilol and spironolactone at target doses, consider switching carvedilol to toprol so BP can tolerate ACEI. We discussed this today - will await repeat assessment of LV function. If lower, would switch coreg to toprol then add low-dose ACEI. He wishes to do this locally with PCP if necessary, we will reach out once TTE results 09/2018 are known -- s/p VETERINARY MEDICINE DOCTOR-D Assessment & Plan (06/20/2017 11:49 AM EDT): -- NICMP LVEF 27% --> 38% some recovery today! -- etiology not clear, negative w/u to date -- neurohormonal blockade: continue carvedilol and spironolactone at target doses, consider switching carvedilol to toprol so BP can tolerate ACEI. -- s/p VETERINARY MEDICINE DOCTOR-D Assessment & Plan (12/13/2016 8:38 PM EST): -- NICMP LVEF 27% -- etiology not clear, has previously been worked up, will need to review -- neurohormonal blockade: continue carvedilol and spironolactone at target doses -- discussed resuming low dose ACEI today lisinopril 2.5mg - he will monitor BP -- RTC 1 month with COMPUTER SCIENCE PROFESSOR for BP check and labs given previous low BP on ACEI higher dose (5mg) -- repeat TTE routine to monitor LVEF -- s/p VETERINARY MEDICINE DOCTOR-D Assessment & Plan (09/12/2016 9:36 AM EDT): Will refer to HF clinic to optimize his treatment Assessment & Plan (02/15/2016 10:25 AM EST): Will refer to Dr. Mirna Wilson for HF f/u Aortic root dilation 07/25/2015 Overview (07/25/2015): Aortic root dilation. Service date: 09/26/2012. Author: Marco Toledo MD. Summary: Seen on echo 09/26/2012. Will repeat an echo in 3 months. Assessment & Plan (06/16/2020 11:58 AM EDT): -- followed by echo, pending from today Assessment & Plan (06/11/2019 8:21 AM EDT): -- followed by echo -- repeat in 1 year as above Assessment & Plan (06/19/2018 9:06 AM EDT): -- TTE 06/2017with aortic root at SOV 41 mm, monitor - repeat TTE ordered 09/2018 Assessment & Plan (06/20/2017 11:47 AM EDT): -- TTE today with aortic root at SOV 41 mm, monitor Assessment & Plan (12/13/2016 8:36 PM EST): -- seen last on echo 01/2014, repeat TTE Cardiac resynchronization th erapy defibrillator (VETERINARY MEDICINE DOCTOR-D) in place 07/25/2015 Overview (06/27/2020): [facility] [facility] VETERINARY MEDICINE DOCTOR-D RV and LV placed 06/20/2013 No RA lead Low BiV pacing in the 55-62% range 2/2 atrial fibrillation. Triggered LV pacing. Improved physical function and feeling better Last echo 06/16/2020 with LVEF 52%. Gen change 05/13/20 Assessment & Plan (07/02/2022 12:41 PM EDT): He presents today for follow-up feeling well. He has no new complaints today. He denies any CP, SOB, palpitations, LH, pre-syncope or syncope. He denies pain at his device site. He walks 1 mile every day, and denies any cardiopulmonary limitations with this. He has been working on watching his diet, and has recently lost 20 lbs. IPDE today shows appropriate device function with BVP at 66% and VSt at 33%. He will continue remote transmissions [id number] with IPDE annually. Assessment & Plan (06/30/2021 5:41 PM EDT): IPDE showed appropriate device function today with BiV pacing 63% and trigger pacing at 37%. Continue remote transmissions [id number] with IPDE annually. He was previously followed by Dr. Wilson in the HF clinic (who has since left the practice) and was scheduled for an appt with Dr. Lui. He missed this appt and reports he was never aware of it - he plans to call their office to reschedule. Assessment & Plan (06/27/2020 9:40 AM EDT): IPDE reveals appropriate device function, BVP=62% VSt=37% Site is well approximated and well healed Continue remote transmissions every 3 months with IPDE annually Assessment & Plan (04/25/2020 11:20 AM EDT): His device triggered KELLY 04/10/20. He presents to discuss gen change. We discussed VETERINARY MEDICINE DOCTOR-D generator change in length. ?Explained the risks of the procedure which includes infection, bleeding, possible lead revision. ?He prefers Dr. Toledo perform his procedure, will update with available dates. He will complete pre-procedure testing within 30 days of the procedure. Combined follow up 6 weeks after procedure. Assessment & Plan (11/12/2019 7:11 AM EDT): Lenny reports feeling well with no activity limitations. He is medically optimized by . Appropriate device function noted on transmission with 5.5months to KELLY. He is scheduled for monthly battery checks. Real-time EGM shows BivP @ 70bpm. BiV P- 63%. Heart rate histogram w/good distribution (rates 70bpm to 130bpm) He is scheduled for monthly battery checks. The procedure of VETERINARY MEDICINE DOCTOR-D generator change was explained in detail to the patient. The alternatives and benefits VETERINARY MEDICINE DOCTOR-D generator change were discussed in detail. We also discussed the risks associated with device implantation, including (but not limited to) the risk of infection (requiring system explantation if it were to occur), reaction to skin preparation agents, reaction to local anesthesia and sedation, reaction to contrast agents (if used), venous and arterial damage or perforation. He will follow up in 6 months for pre-procedure planning including pre-procedure testing scheduling. Assessment & Plan (10/06/2018 1:17 PM EDT): Current ECHO pending He feels well Medically optimized by Dr. WILSON Assessment & Plan (09/16/2017 3:22 PM EDT): Improved by EF and functionally Continue current Rx Assessment & Plan (09/12/2016 9:35 AM EDT): Remote checks in 3,6 and 9 months Combination visit in 12 months Assessment & Plan (02/15/2016 10:20 AM EST): Functioning well % of BiV pacing intereferred with by AF at times Continue current Rx, f/u for remote and in-office interrogation Assessment & Plan (07/25/2015 5:42 PM EDT): [employer] VETERINARY MEDICINE DOCTOR-D implanted for non-ischemic cardiomyopathy, CHF and LBBB on 06/20/13. He is doing well with symptomatic improvement despite modest percentage of true BIV pacing (48%). The remaining percentage is BIV paced during competitive AF conduction using a V-sense triggered pacing algorithm. We discussed AVN ablation briefly once again as a possibility down the road if heart failure or AF become more of an issue interfering with VETERINARY MEDICINE DOCTOR. At this point he would like to continue the current management strategy. Continue digoxin and Coreg. Intermittent diaphragmatic stim discussed. Now resolved. Plan for remote transmission in 3 months followed by in person device check in 6 months. Cardiomyopathy 07/25/2015 Overview (07/25/2015): Cardiomyopathy. Service date: 11/28/2014. Author: Annelise Campoverde NP. Comment: s/p VETERINARY MEDICINE DOCTOR-ICD, on good medical therapy. BiV pacing is at 43%; AV dayan ablation remains a possible solution to improving his percentage of BiV pacing, however this would leave him pacer dependent and neither the patient nor his are interested in pursuing this. Additionally, he is clinically euvolemic and feels well enough to continue his current regimen. We will restart the spironolactone in order to fully optimize his medical regimen.He remains a NYHA II. Chemistries will be checked at [facility]. Assessment & Plan (09/16/2017 4:21 PM EDT): Medically optimized Improved EF BiV pacing Feels well Continue F/U with Assessment & Plan (02/28/2017 9:48 AM EST): -- NICMP LVEF 27% -- etiology not clear, negative w/u to date -- neurohormonal blockade: continue carvedilol and spironolactone at target doses, unable to tolerate lisinopril 2/2 joint pains - once acute illness sorted out will need to readdress and possibly consider switching carvedilol to toprol so BP can tolerate ACEI. -- RTC 5 months with repeat TTE routine to monitor LVEF -- s/p VETERINARY MEDICINE DOCTOR-D Essential hypertension 07/25/2015 Overview (07/25/2015): Essential hypertension. Service date: 03/16/2012. Author: Marco Toledo MD. Comment: Well controlled at present. Assessment & Plan (02/28/2017 10:09 AM EST): -- BP at goal no changes Assessment & Plan (07/25/2015 5:45 PM EDT): He has been relatively hypotensive, particularly for several days during this past June, with some dizziness. His home BP log shows readings as low as 70/52 mmHg during that time. He reports symptoms have largely resolved and BP recordings are better. If symptoms recur will consider down titrating lisinopril. Left bundle branch block 07/25/2015 Overview (07/25/2015): Left bundle branch block. Service date: 09/26/2012. Author: Marco Toledo MD. Comment: Chronic. Assessment & Plan (02/28/2017 10:09 AM EST): -- s/p VETERINARY MEDICINE DOCTOR-D Ventricular premature beats 07/25/2015 Overview (07/25/2015): Premature ventricular contraction. Service date: 01/16/2014. Author: Marco Toledo MD. Summary: He had frequent outflow tract PVCs on EKG 09/26/2012. In some cases these can contribute to cardiomyopathy. He had a Holter on 09/27/2012 ([facility]) to determine the adequacy of his rate control in AF, and his PVC burden, as possible contributors to his low LVEF. This Holter showed AF, rate 60-183 bpm (avg. 102 bpm) with 17,954 PVCs (12% of all beats). This PVC burden appears to be decreasing. Resolved Problems Problem Noted Date Diagnosed Date Resolved Date Persistent atrial fibrillation 07/25/2015 09/12/2016 Overview (07/25/2015): Persistent atrial fibrillation. Service date: 11/28/2014. Author: Annelise Campoverde NP. Summary: Rate relatively well controlled on Dig and Coreg. Continue AC. Assessment & Plan (07/25/2015 5:42 PM EDT): Persistent, asymptomatic AF. CHADSVASC is at least 3 (CHF, HTN, age>65). He remains on Coumadin. We briefly discussed direct oral anticoagulants, however at this time Mr. Caruso prefers to continue Coumadin, which is reasonable. Continue digoxin and Coreg. Encounters Date Type Department Care Team Description 10/05/2024 7:30 AM EDT - 10/05/2024 11:59 PM EDT Hospital Encounter [facility] Cardiology Division [address] [place] [address], [address] [place] [address] Sumit Toledo MD, PhD Discharge Disposition: Home or Self Care 08/16/2024 Procedure Pass [facility] Cardiology Division [address] [facility], [address] [place] [address] 08/12/2024 9:30 AM EDT - 08/12/2024 11:59 PM EDT Hospital Encounter [facility] Cardiology Division [address] [facility], [address] [place] [address] Sumit Toledo MD, PhD Discharge Disposition: Home or Self Care 07/09/2024 Procedure Pass [facility] Cardiology Division [address] [facility], [address] [place] [address] from Last 3 Months Family History Medical History Relation Comments Arrhythmia Neg Hx Sudden Neg Hx Social History Tobacco Use Types Packs/Day Years Used Date Smoking Tobacco: Never Tobacco Cessation:Counseling Given: Not Answered Education Answer Date Recorded Are you interested [...] Orientation Straight 05/22/2020 9: 31 AM EDT Last Filed Vital Signs Vital Sign Reading Time Taken Comments Blood Pressure 129/79 02/10/2024 1:47 PM EST Pulse 88 02/10/2024 1:47 PM EST Temperature 36.5 C (97.7 F) 02/10/2024 1:47 PM EST Respiratory Rate 17 02/10/2024 1:47 PM EST Oxygen Saturation 96% 02/10/2024 1:47 PM EST Inhaled Oxygen Concentration - - Weight 93 kg (205 lb) 02/10/2024 1:47 PM EST Height 193 cm (6' 4 ) 02/10/2024 1:47 PM EST Body Mass Index 24.95 02/10/2024 1:47 PM EST Plan of Treatment Upcoming Encounters Date Type Department Care Team (Late st Contact Info) Description 07/09/2024 Procedure Pass [facility] Cardiology Division [address] [facility], [address] [place] [address] 08/16/2024 Procedure Pass [facility] Cardiology Division [address] [facility], [address] [place] [address] 10/05/2024 Procedure Pass [facility] Cardiology Division [address] [facility], [address] [place] [address] 10/05/2024 Procedure Pass [facility] Cardiology Division [address] [facility], [address] [place] [address] 11/06/2024 9:30 AM EDT Appointment [facility] Cardiology Division [address] [facility], [address] [place] [address] Sumit Toledo MD, PhD [address] [place] [phone] [email or web address] 11/09/2024 2:00 PM EDT Appointment [facility] Cardiac EP [address] [facility], 5th [address], [address] [place] [address] Sumit Toledo MD, PhD [address] [place] [id number] [email or web address] 11/09/2024 2:30 PM EDT Office Visit [facility] Cardiac Arrhythmia Service [address] [facility], 5th [address], [address] [place] [address] Sumit Toledo MD, PhD [address] [place] [phone] [email or web address] 11/09/2024 3:00 PM EDT Office Visit [facility] Heart Failure & Transplantation [address] [facility], 5th [address], [address] [place] [address] Tal Stanley MD [address] [facility] [address] [place] [address] [email or web address] 02/05/2025 8:00 AM EST Appointment [facility] Cardiology Division [address] [facility], [address] [place] [address] Sumit Toledo MD, PhD [address] [facility] [place] [address] [email or web address] 05/07/2025 8:00 AM EDT Appointment [facility] Cardiology Division [address] [facility], [address] [place] [address] Sumit Toledo MD, PhD [address] [facility] [place] [address] [email or web address] Health Maintenance Due Date Last Done Comments DEPRESSION SCREENING 1960 HEPATITIS C SCREENING 1966 PNEUMOCOCCAL VACCINES (50+ years) (1 of 2 - PCV) 09/18/1967 ZOSTER VACCINES (1 of 2) 1998 POTASSIUM LEVEL 12/28/2022 12/28/2021, 0307/2020, 07/15/2019, Additional history exists RSV VACCINE (1 - 1-dose 75+ series) 09/18/2023 BLOOD PRESSURE 08/09/2024 02/10/2024 INFLUENZA VACCINE (#1) 2024 01/02/2018 COVID-19 VACCINE (2023- season) 2024 Adult Td,Tdap Booster 02/09/2026 02/10/2016 LIPID PANEL 12/28/2026 12/28/2021, 06/07, 02/28/2017, Additional history exists SMOKING STATUS SCREENING (Once After 26 Yrs) Completed 10/21/2023 HEPATITIS A VACCINES Aged Out No long er eligible based on patient's age to complete this topic HIB VACCINES Aged Out No longer eligi ble based on patient's age to complete this topic MENINGOCOCCAL VACCINES (ACWY) Aged Out No longer eligible based on patient's age to complete this topic MENINGOCOCCAL VACCINES (B) Aged Out N o longer eligible based on patient's age to complete this topic Medical Devices Implanted Type Area Car Salesman Device Identifier Shelf Expiration Date Model / Serial / Lot Defibrillator Laboratory Technical Specialist-D [place] [employer] - [id number] Implanted:Qty: 1 on 05/13/2020 by Sumit Toledo MD, PhD at [facility] ICD Left: Chest [employer] 03/09/2022 [id number] / [id number] / Lv Lead-06/20/2013 Implanted: 014 (Quantity not on file) Lead [employer] 1458Q QUARTET / [id number] / Rv Lead-06/20/2013 Implanted: 014 (Quantity not on file) Lead [employer] 7122Q DURATA SJ4 / [id number] / Explanted Type Area Car Salesman Device Identifier Shelf Expiration Date Model / Serial / Lot [facility] [employer] Crtd-06/20/2013 Implanted:06/21/19 14 (Quantity not on file) Explanted:Qty: 1 on 05/13/2020 by Sumit Toledo MD, PhD at [facility] ICD [employer] 3365-40Q QUADRA ASSURA / [id number] / Procedures Procedure Name Priority Date/Time Associated Diagnosis Comments DEVICE CHECK: ICD IN-HOME INTERROGATION Routine 08/12/2024 6:22 AM EDT Non-ischemic cardiomyopathy Cardiac resynchronization therapy defibrillator (VETERINARY MEDICINE DOCTOR-D) in place LIPID PANEL Routine 12/28/2021 2:29 PM EST Lipid screening COMPREHENSIVE METABOLIC PANEL Routine 12/28/2021 2:29 PM EST Cardiomyopathy, unspecified type from Last 3 Months or Most Recently Relevant to Health Maintenance Results * DEVICE CHECK: ICD IN-HOME INTERROGATION (08/12/2024 6:22 AM EDT) Date Time Interrogation Session [id number] [facility] [facility] Implantable Pulse Generator [facility] [employer] Implantable Pulse Generator Model [id number] Charlevoix HF [facility] Implantable Pulse Generator Serial Number [id number] [facility] Type Interrogation Session Remote Scheduled [facility] Re-programmed During Session NO [facility] Clinic Name Arrhythmia Device Clinic [facility] Implantable Pulse Generator Type Cardiac Resynchronization Therapy - Defibrillator [facility] Generator Implant Date [id number] [facility] Implantable Lead [facility] Implantable Lead Model 1458Q Quartet [facility] Implantable Lead Serial Number [id number] [facility] Implantable Lead Implant Date 20130620 [facility] Implantable Lead Polarity Type Quadripolar Lead [facility] Implantable Lead Location Detail 1 UNKNOWN [facility] Implantable Lead Special Function Implant [facility] Implantable Lead Location Left Atrium [facility] Implantable Lead [facility] Implantable Lead Model 7122Q Durata SJ4 [facility] Implantable Lead Serial Number [id number] [facility] Implantable Lead Implant Date 20130620 [facility] Implantable Lead Polarity Type Tripolar Lead [facility] Implantable Lead Special Function Implant [facility] Implantable Lead Location Right Ventricle [facility] Richie Setting Mode (NBG Code) VVTR [facility] Richie Setting Lower Rate Limit 70 {beats} /min [facility] Richie Setting Maximum Sensor Rate 120 {beats} /min [facility] Lead Channel Setting Sensing Polarity Bipolar [facility] Lead Channel Setting Sensing Polarity Bipolar [facility] Lead Channel Setting Sensing Anode Location Right Ventricle [facility] Lead Channel Setting Sensing Anode Terminal Ring [facility] Lead Channel Setting Sensing Cathode Location Right Ventricle [facility] Lead Channel Setting Sensing Cathode Terminal Tip [facility] Lead Channel Setting Sensing Sensitivity 0.3 mV [facility] Lead Channel Setting Sensing Adaptation Mode Adaptive [facility] Ventricular chambers paced during VETERINARY MEDICINE DOCTOR pacing. BiV [facility] VETERINARY MEDICINE DOCTOR LV-RV Delay 20 ms [facility] Lead Channel Setting Pacing Polarity Bipolar [facility] Lead Channel Setting Pacing Polarity Bipolar [facility] Lead Channel Setting Pacing Anode Location Right Ventricle [facility] Lead Channel Setting Pacing Anode Terminal Ring [facility] Lead Channel Setting Sensing Cathode Location Right Ventricle [facility] Lead Channel Setting Sensing Cathode Terminal Tip [facility] Lead Channel Setting Pacing Pulse Width 0.5 ms [facility] Lead Channel Setting Pacing Amplitude 2.0 V [facility] Lead Channel Setting Pacing Capture Mode Fixed Pacing [facility] Lead Channel Setting Pacing Polarity Bipolar [facility] Lead Channel Setting Pacing Pulse Width 1.5 ms [facility] Lead Channel Setting Pacing Amplitude 0.75 V [facility] Lead Channel Setting Pacing Capture Mode Fixed Pacing [facility] Zone Setting Type Category VF [facility] [...] Channel Status Null [facility] LV Impedance 460 ohm [facility] LV Threshold 0.25 V [facility] LV Threshold PW 1.5 ms [facility] Lead Channel Status Null [facility] RV Impedance 590 ohm [facility] R Wave 6.6 mV [facility] RV Threshold 0.75 V [facility] RV Threshold PW 0.5 ms [facility] Battery Date Time of Measurements [id number] [facility] Battery Status Middle of Service [facility] Battery CARPET CLEANER Trigger When current voltage < 2.62 volts [facility] Battery Remaining Longevity 47 mo [facility] Battery Remaining Percentage 51.0 % [facility] Battery Voltage 2.95 V [facility] Capacitor Charge Type Reformation [facility] Capacitor Last Charge Date Time [id number]+0000 [facility] Capacitor Charge Time 8.9 s [facility] Capacitor Charge Energy 40 J [facility] Statistic Heart Rate Date Time Start [id number]+0000 [facility] Statistic Heart Rate Date Time End [id number]+ [facility] Statistic Ventricular Heart Rate Min 70 {beats} /min [facility] Statistic Ventricular Heart Rate Mean 86 {beats} /min [facility] Statistic Ventricular Heart Rate Max 240 {beats} /min [facility] Richie Statistic Date Time Start [id number] [facility] Richie Statistic Date Time End [id number]+ [facility] VETERINARY MEDICINE DOCTOR Statistic Date Time Start [id number] [facility] VETERINARY MEDICINE DOCTOR Statistic Date Time End 45739621705186+ [facility] VETERINARY MEDICINE DOCTOR Statistic VETERINARY MEDICINE DOCTOR Percent Paced 52.0 % [facility] Atrial Tachy Statistic Date Time Start 08679602091127+ [facility] Atrial Tachy Statistic Date Time End [id number]+ [facility] Therapy Statistic Recent Shocks Delivered 0 [facility] Therapy Statistic Recent Shocks Aborted 0 [facility] Therapy Statistic Recent ATP Delivered 0 [facility] Therapy Statistic Recent Date Time Start [id number] [facility] Therapy Statistic Recent Date Time End 32551672167247+0000 [facility] Episode Statistic Recent Count 32 [facility] Episode Statistic Type Category VT [facility] Episode Statistic Vendor Type Category Non-sustained VT [facility] Episode Statistic Recent Date Time Start [id number] [facility] Episode Statistic Recent Date Time End 33586515195026+0000 [facility] Episode Identifier [id number] [facility] Episode Type Category VT [facility] Episode Vendor Type Category Non-sustained VT [facility] Episode Date Time [id number] [facility] Episode Duration 4 s [facility] Episode Identifier [id number] [facility] Episode Type Category VT [facility] Episode Vendor Type Category Non-sustained VT [facility] Episode Date Time [id number] [facility] Episode Duration 4 s [facility] 08/12/2024 6:22 AM EDT Narrative [facility] - 08/16/2024 2:25 PM EDT Scheduled Quarterly remote transmission: Appropriate (VVTR) VETERINARY MEDICINE DOCTOR-D function. Presenting rhythm: VST/BP 70s-90s bpm Battery longevity estimate: 3.8 - 4.1 years Episodes: (2) HVR episodes recorded since last remote on 07/09/24. EGMs suggestive of bursts of RVR @ 180s bpm, ongoing at onset/termination of EGMs. Known AF, on Warfarin per [facility] BP 52% (Currently trending ~62%) VST 47% Histograms: HR histogram reveals normal distribution. Available lead measurements are within normal limits and trends are stable. Follow up: Next HF remote 09/12/24. Next Quarterly Remote ~11/11/2024 Next Combo Appt 11/09/24. Dear Patient, You may see a lot of technical details in this report. Please be assured that important issues will be identified and someone will contact you if there is any necessary follow up. us Sumit Toledo MD, PhD CV CARDIAC SERVICES ORDERA BLES Final Result [facility] [address] [place] [address] * Comprehensive metabolic panel (12/28/2021 2:29 PM EST) SODIUM 138 133 - 146 mmol/L [facility] POTASSIUM 4.4 3.3 - 5.1 mmol/L [facility] CHLORIDE 99 96 - 108 mmol/L [facility] CO2 29 21 - 35 mmol/L [facility] BUN 18 6 - 19 mg/dL [facility] CREATININE 1.00 0.5 - 1.5 mg/dL [facility] GLUCOSE 70 70 - 99 mg/dL [facility] ALBUMIN 4.1 3.9 - 4.8 g/dL [facility] TOTAL PROTEIN 7.3 6.5 - 8.0 g/dL [facility] CALCIUM 9.4 8.4 - 10.3 mg/dL [facility] ALKALINE PHOSPHATASE 89 39 - 117 U/L [facility] TOTAL BILIRUBIN 0.8 0.0 - 1.2 mg/dL [facility] AST 22 0 - 37 U/L [facility] ALT 12 0 - 40 U/L [facility] GLOBULIN 3.2 1 - 4.8 g/dL [facility] EGFR 79 >59 mL/min/1.7 3m2 [facility] Comment:Estimated glomerular filtration rate calculated using the CKD-EPI refit equation. ANION GAP 14 10 - 20 mmol/L [facility] Blood 12/28/2021 2:29 PM EST 12/28/2021 2:33 PM EST Gayle Hogan SHELLS INSPECTOR LAB BLOOD ORDERABLES Final Resul t [facility] [address] [place] [address] * (ABNORMAL) Lipid panel (12/28/2021 2:29 PM EST) HDL 38 mg/dL [facility] Comment: Interpretation <40 mg/dL: Low HDL cholesterol (major risk factor for CHD) Greater than or equal to 60 mg/dL: High HDL cholesterol ( negative risk factor for CHD) HDL - cholesterol is affected by a number of factors, e.g. smoking, excerise, hormones, sex and age. CHOLESTEROL 169 0 - 240 mg/dL [facility] TRIGLYCERIDES 200(H) 30 - 160 mg/dL [facility] LDL 91 50 - 129 mg/dL [facility] Comment: LDL levels in terms of risk for coronary heart disease: <100 mg/dL: Optimal 100-129 mg/dL: Near or above optimal 130-159 mg/dL: Borderline high 160-189 mg/dL: High >190 mg/dL: Very High CARDIAC RISK RATIO 4.4 3.4 - 5.0 C [facility] Blood 12/28/2021 2:29 PM EST 12/28/2021 2:32 PM EST us Gayle Hogan SHELLS INSPECTOR LAB BLOOD ORDERABLES Final Resul t [facility] [address] [place] [address] from Last 3 Months or Most Recently Relevant to Health Maintenance Insurance [facility] Member Subscriber Plan / Payer (Ef fective 2015-Present) Name:Lenny Caruso Relation to Subscriber:Self Name:Lenny Caruso Payer ID:[id number] (NAIC) Group ID:[id number] Type:[facility] Address: [facility] [address] [place] [address] MEDICARE PART A & B [facility] Member Subscriber Plan / Payer (Ef fective 2015-Present) Name:Lenny Caruso Relation to Subscriber:Self Name:Lenny Caruso Payer ID:[id number] (NAIC) Group ID:[id number] Type:PPO Address: [address] [place] [address] MEDICARE PART A & B [facility] Member Subscriber Plan / Payer (Ef fective 2015-Present) Name:Lenny Caruso Jason Relation to Subscriber:Self Name:Lenny Caruso Payer ID:[id number] (NAIC) Group ID:[id number] Type:PPO Address: [facility] [id number] [place] [address] MEDICARE PART A & B [facility] Member Subscriber Plan / Payer (Ef fective 2015-Present) Name:Lenny Caruso Jason Relation to Subscriber:Self Name:Lenny Caruso Payer ID:[id number] (NAIC) Group ID:[id number] Type:PPO Address: [address] [place] [address] MEDICARE PART A & B [facility] Member Subscriber Plan / Payer (Ef fective 2015-Present) Name:ShadyLenny Jason Relation to Subscriber:Self Name:Lenny Caruso Payer ID:[id number] (NAIC) Group ID:[id number] Type:PPO Address: [address] [place] [address] MEDICARE PART A & B Member Subscriber Plan / Payer (Ef fective 2015-Present) Name:Lenny Caruso Relation to Subscriber:Self Name:Lenny Caruso Payer ID:[id number] ([facility]) Group ID:[id number] Type:O Address: [facility] [id number] [place] [id number] MEDICARE PART A & B [facility] Member Subscriber Plan / Payer (Ef fective 2015-Present) Name:ShadyLenny Jason Relation to Subscriber:Self Name:Lenny Caruso Jason Payer ID:[id number] (NAIC) Group ID:[id number] Type:PPO Address: [place] [address] MEDICARE PART A & B [facility] Member Subscriber Plan / Payer (Ef fective 2015-Present) Name:Lenny Caruso Relation to Subscriber:Self Name:Lenny Caruso Payer ID:[id number] (NAIC) Group ID:[id number] Type:PPO Address: [facility] [id number] [place] [id number] MEDICARE PART A & B [facility] Member Subscriber Plan / Payer (Ef fective 2015-Present) Name:Lenny Caruso Relation to Subscriber:Self Name:Lenny Caruso Payer ID:[id number] (NAIC) Group ID:[id number] Type:[facility] Address: [facility] [address] [place] [address] MEDICARE PART A & B Care Teams Dock Manager Relationship Specialty Start Date End Date Eduardo Rutledge MD [address] [place] [phone] PCP - General Internal Medicine 06/19/18 Additional Source Comments The information contained in this document represents components of the legal health record. It is not the complete legal health record.[facility]
--- OUTSIDE RECORDS SUMMARY | 2024-10-25 10:59 | XMS_ITS | Encounter Summary ---
Author Organization [facility] Address [facility] [address] [place] [address] Phone Care Team Providers Care Electrical And Instrumentation Manager Name Role Phone Eduardo Rutledge MD Primary Care Provid er Encounter Details Date Type Department Care Team (Late st Contact Info) Description 03/10/2022 Procedure Pass [facility] [place] [address] [facility], [address] [place] [address] Social History Tobacco Use Types Packs/Day Years [...] Contact Info) Description 07/09/2024 Procedure [place] [facility] [place] [address] [facility], [address] [place] [address] 08/16/2024 Procedure Pass [facility] [place] [address] [facility], [address] [place] [address] 10/05/2024 Procedure Pass [facility] [place] [address] [facility], [address] [place] [address] 10/05/2024 Procedure Pass [facility] [place] [address] [facility], [address] [place] [address] 11/06/2024 9:30 AM EDT Appointment [facility] [address] [facility], [address] [place] [address] Sumit Toledo MD, PhD [address] [facility] [address] [place] [address] [email or web address] 11/09/2024 2:00 PM EDT Appointment [facility] [place] [address] [facility], 5th Floor, [address] [place] [address] Sumit Toledo MD, PhD [address] [place] [address] [email or web address] 11/09/2024 2:30 PM EDT Office Visit [facility] [place]ia [place] [address] [facility], 5th Floor, [address] [place] [address] Sumit Toledo MD, PhD [address] [place] [address] [email or web address] 11/09/2024 3:00 PM EDT Office Visit [facility] Heart Failure & Transplantation [address] [facility], 5th Floor, [address] [place] [address] Tal Stanley MD [address] [address] [email or web address] 02/05/2025 8:00 AM EST Appointment [facility] [place] [address] [facility], [address] [place] [address] Sumit Toledo MD, PhD [address] [place], [place] [id number] [address] [email or web address] 05/07/2025 8:00 AM EDT Appointment [facility] [place] [address] [facility], [address] [place] [address] Sumit Toledo MD, PhD [address] [place], [place] [id number] [place] [address] [email or web address] documented as of this encounter Visit Diagnoses Not on filedocumented in this encounter Additional Health Concerns Infection Onset Date Last Indicated Resolved Time CoV-Risk 02/10/2024 02/10/2024 02/21/2024 1:22 AM EST RSV 02/10/2024 02/10/2024 02/17/2024 1:25 AM EST documented as of this encounter Care Teams Electrical And Instrumentation Manager Relationship Specialty Start Date End Date Eduardo Rutledge MD [address] [place] [address] PCP - General Internal Medicine 06/19/18 documented as of this encounter Additional Source Comments The information contained in this document represents components of the legal health record. It is not the complete legal health record.[facility]
--- OUTSIDE RECORDS SUMMARY | 2024-10-25 10:59 | XMS_ITS | Encounter Summary ---
Author Organization [facility] Address [facility] [address] [place] [address] Phone Care Team Providers Care Art Therapy Specialist Name Role Phone Eduardo Rutledge MD Primary Care Provid er Encounter Details Date Type Department Care Team (Late st Contact Info) Description 05/01/2020 [place] [facility] [place] [address] [facility], Floor 1, [address] [place] [address] Social History Tobacco Use Types [...] [place] [address] [facility], [address] [place] [address] 08/16/2024 Procedure Pass [facility] [place] [address] [facility], [address] [place] [address] 10/05/2024 Procedure Pass [facility] [place] [address] [facility], [address] [place] [address] 10/05/2024 Procedure Pass [facility] [place] [address] [facility], [address] [place] [address] 11/06/2024 9:30 AM EDT Appointment [facility] [place] [address] [facility], [address] [place] [address] Sumit Toledo MD, PhD [address] [place] [address] [email or web address] 11/09/2024 2:00 PM EDT Appointment [facility] [place] [address] [facility], 5th Floor, [address] [place] [address] Sumit Toledo MD, PhD [address] [place] [address] [email or web address] 11/09/2024 2:30 PM EDT Office Visit [facility] [place] Arrhythmia Service [address] [facility], 5th Floor, [address] [place] [address] Sumit Toledo MD, PhD [address] [place] [address] [email or web address] 11/09/2024 3:00 PM EDT Office Visit [facility] [place] Failure [place] Transplantation [address] [facility], 5th Floor, [address] [place] [address] Tal Stanley MD [address] [place] [address] [email or web address] 02/05/2025 8:00 AM EST Appointment [facility] [place] [address] [facility], [address] [place] [address] Sumit Toledo MD, PhD [address] [place], [place] [address] [address] [email or web address] 05/07/2025 8:00 AM EDT Appointment [facility] [place] [address] [facility], [address] [place] [address] Sumit Toledo MD, PhD [address] [place], [place] [address] [address] [email or web address] documented as of this encounter Visit Diagnoses Not on filedocumented in this encounter Additional Health Concerns Infection Onset Date Last Indicated Resolved Time CoV-Risk 02/10/2024 02/10/2024 02/21/2024 1:22 AM EST RSV 02/10/2024 02/10/2024 02/17/2024 1:25 AM EST documented as of this encounter Care Teams Art Therapy Specialist Relationship Specialty Start Date End Date Eduardo Rutledge MD [address] [place] [id number] PCP - General Internal Medicine 06/19/18 documented as of this encounter Additional Source Comments The information contained in this document represents components of the legal health record. It is not the complete legal health record.[facility]
== END 2024-10-25 09:39 | disposition home or self-care (01) ==
LOC: HO.ACS 09:23
PROVIDERS: PCP Internal Medicine; Visit Provider Internal Medicine Medical Oncology
DX: Z79.01 Long term (current) use of anticoagulants (principal)

== ENCOUNTER → 2024-10-25 09:23 | Outpatient (BNVA) | payer MEDICARE, BC, SELFPAY | PROVIDERS: PCP Internal Medicine; Visit Provider Internal Medicine Medical Oncology | DX: Z51.81 Encounter for therapeutic drug level monitoring (principal); Z79.01 Long term (current) use of anticoagulants | CPT/HCPCS: 85610; 99211 ==

== ENCOUNTER → 2024-11-22 09:07 | Outpatient (BNVA) | payer MEDICARE, BC, SELFPAY | PROVIDERS: PCP Internal Medicine; Visit Provider Internal Medicine Medical Oncology | DX: I48.20 Chronic atrial fibrillation, unspecified (principal); Z51.81 Encounter for therapeutic drug level monitoring; Z79.01 Long term (current) use of anticoagulants | CPT/HCPCS: 85610; 99211 ==

== ENCOUNTER 2024-12-06 09:13 | Outpatient (AMB) | payer MEDICARE, BC, SELFPAY ==
--- OUTSIDE RECORDS SUMMARY | 2015-07-22 14:44 | XMS_ITS | Encounter Summary ---
Author Organization [facility] Address [facility] [employer] [facility] [address] [place] [address] Phone Care Team Providers Care Solderer Name Role Phone Valeriano Douglas MD Primary Care Provider [phone] Encounter Details Date Type Department Care Team (Late st Contact Info) Description 07/22/2015 2:44 PM EDT Hospital Encounter [facility] EP Pacer Lab 55 [facility], Floor 1, Room [address] [place] [address] Sumit Toledo MD, PhD 55 [facility] [id number] [place] [address] [email or web address] Social History Tobacco Use Types Packs/Day Years [...] Care Team (Late st Contact Info) Description 07/09/2024 Procedure Pass [facility] Cardiology Division [address] [facility], [address] [place] [address] 08/16/2024 Procedure Pass [facility] Cardiology Division [address] [facility], [address] [place] [address] 10/05/2024 Procedure Pass [facility] Cardiology Division [address] [place] [address] [facility], [address] [place] [address] 11/09/2024 Procedure Pass [facility] Cardiology Division [address] [facility], [address] [place] [address] 11/22/2024 Procedure Pass [facility] Cardiology Division [address] [facility], [address] [place] [address] 11/22/2024 Procedure Pass [facility] Cardiology Division [address] [facility], [address] [place] [address] 11/26/2024 Procedure Pass [facility] Echo Lab 30 [place] [address] 12/05/2024 Procedure Pass [facility] Cardiology Division [address] [facility], [address] [place] [address] 12/05/2024 Procedure Pass [facility] Cardiology Division [address] [facility], [address] [place] [address] 12/22/2024 7:00 AM EST Appointment [facility] Cardiology Division [address] [facility], [address] [place] [address] Sumit Toledo MD, PhD [address] [place] [phone] [email or web address] 01/21/2025 7:00 AM EST Appointment [facility] Cardiology Division 55 [facility], [address] [place] [address] Sumit Toledo MD, PhD [address] [address] [email or web address] 02/21/2025 10:30 AM EST Appointment [facility] Cardiology Division 55 [facility], [address] [place] [address] Sumit Toledo MD, PhD [address] [place] [address] [email or web address] 05/20/2025 10:30 AM EDT Appointment [facility] Echo Lab 30 [place] [address] Tal Stanley MD [address] [address] [email or web address] 07/12/2025 9:00 AM EDT Appointment [facility] Cardiac EP 32 [facility], 5th Floor, [address] [place] [address] Sumit Toledo MD, PhD [address] [place] [phone] [email or web address] 07/12/2025 9:30 AM EDT Office Visit [facility] Cardiac Arrhythmia Service 32 [facility], 5th Floor, [address] [place] [address] Lisa Mccarthy, TONYA [address] [address] [email or web address] 07/12/2025 11:00 AM EDT Office Visit [facility] Heart Failure & Transplantation [address] [facility], 5th Floor, [address] [place] [address] Tal Stanley MD [address] [facility] [address] [place] [address] [email or web address] Pending Results Name Type Priority Associated Diagnoses [...] documented as of this encounter Care Teams Solderer Relationship Specialty Start Date End Date Valeriano Douglas MD [address] [address] PCP - General 08/07/13 02/27/17 documented as of this encounter Additional Source Comments The information contained in this document represents components of the legal health record. It is not the complete legal health record.[facility]
--- OUTSIDE RECORDS SUMMARY | 2015-07-25 15:15 | XMS_ITS | Encounter Summary ---
Author Organization [facility] Address [facility] [address] [place] [address] Phone Care Team Providers Care Pricing Director Name Role Phone Valeriano Douglas MD Primary Care Provider [phone] [phone] Encounter Details Date Type Department Care Team (Late st Contact Info) Description 07/25/2015 3:15 PM EDT Hospital Encounter [facility] EP Pacer Lab 55 [facility], Floor 1, Room [address] [place] [address] Clint Toledo MD, PhD 55 [facility] [address] [place] [address] [email or web address] .[email or web address] Social History Tobacco Use Types Packs/Day Years [...] st Contact Info) Description 07/09/2024 Procedure Pass [facility] Cardiology Division [address] [facility], [address] [place] [address] 08/16/2024 Procedure Pass [facility] Cardiology Division [address] [facility] [facility], [address] [place] [address] 10/05/2024 Procedure Pass [facility] Cardiology Division [address] [place] [address] [facility] [address] [place] [address] 11/09/2024 Procedure Pass [facility] Cardiology Division [address] [facility] [facility], [address] [place] [address] 11/22/2024 Procedure Pass [facility] Cardiology Division [address] [facility] [facility], [address] [place] [address] 11/22/2024 Procedure Pass [facility] Cardiology Division 55 [facility] [address] [facility] [facility], [address] [place] [address] 11/26/2024 Procedure Pass [facility] Echo Lab 30 [place] [address] 12/05/2024 Procedure Pass [facility] Cardiology Division [address] [facility], [address] [place] [address] 12/05/2024 Procedure Pass [facility] Cardiology Division [address] [facility] [facility], [address] [place] [address] 12/22/2024 7:00 AM EST Appointment [facility] Cardiology Division 55 [facility] [address] [facility] [facility], [address] [place] [address] Clint Toledo MD, PhD [address] [place] [address] [email or web address] 01/21/2025 7:00 AM EST Appointment [facility] Cardiology Division 55 [facility], [address] [place] [address] Clint Toledo MD, PhD [address] [address] [email or web address] 02/21/2025 10:30 AM EST Appointment [facility] Cardiology Division 55 [facility], [address] [place] [address] Clint Toledo MD, PhD [address] [place] [address] [email or web address] 05/20/2025 10:30 AM EDT Appointment [facility] Echo Lab 30 [place] [address] Tal Stanley MD [address] [address] [email or web address] 07/12/2025 9:00 AM EDT Appointment [facility] Cardiac EP 32 [facility], 5th Floor, [address] [place] [address] Clint Toledo MD, PhD [address] [place] [address] [email or web address] 07/12/2025 9:30 AM EDT Office Visit [facility] Cardiac Arrhythmia Service 32 [facility], 5th Floor, [address] [place] [address] Lisa Mccarthy, TONYA [address] [address] [email or web address] 07/12/2025 11:00 AM EDT Office Visit [facility] Heart Failure & Transplantation 32 [facility], 5th Floor, [address] [place] [address] Tal Stanley MD 55 [facility] [address] [place] [address] [email or web address] documented as of this encounter Procedures Procedure Name Priority Date/Time Associated Diagnosis Comments EP DEVICE CHECK / FOLLOW UP Routine 07/25/2015 3:15 PM EDT Cardiac arrhythmia, unspecified cardiac arrhythmia type Cardiomyopathy Persistent atrial fibrillation Presence of automatic implantable cardioverter-defibri llator documented in this encounter Results * EP Device Check / Follow Up (07/25/2015 3:15 PM EDT) 07/25/2015 3:15 AM EDT Narrative [facility] - 07/29/2015 4:25 PM EDT FINAL IMPLANTABLE DEVICE FOLLOW-UP REPORT PATIENT NAME: ANDREW SANCHEZ Age: 64 : 1950 Initial Implant Date: 06/20/2013 Follow-Up Date/Time: 07/25/2015 02:00:00 PM Nurse: Marychuy Reese R.N. EP Time Clock Mechanic: DAYSI FAITH MD Referring MD: CLINT TOLEDO Visit Type: ICD Follow-Up Reason For Follow-Up: Scheduled follow-up DIAGNOSES: Cardiomyopathy, unspecified Persistent atrial fibrillation Presence of automatic (implantable) cardiac defibrillator PROCEDURES: ICD Interrogation (in person) ICD Programming, Dual Lead Primary Diagnosis: Cardiomyopathy Today's Rhythm: BiV paced Underlying Rhythm: NSR Battery Status Voltage: 3.8-4.3yrs Charge Time (sec): 9.5 Device / Leads Data: DEVICE DATA: Procedure: Implant Device: Biv icd Date Implanted: 06/20/2013 Rn Intern: Fineline Model Name: AMADO BUSH Model Number: [id number] Serial No: [id number] Mode: Ssir Location: Left upper chest LEAD DATA: Date Implanted: 06/20/2013 06/20/2013 Active: Active Active Rn Intern: St. Alex St. Alex Model Name: APRIL BETANCUR Model Number: [id number]-65 [id number]-86 Serial No: [id number] Polarity: Bipolar Bipolar Fixation/Type: Screw-in Tined Lead [...] Bradycardia and Tachycardia Episodes Since Counters Cleared CREAM DIPPER(%): 48 VS(%): 8 Counters VHR Detections: 10 Heart Rate Histogram Distribution: Good Programming Comments (10) VT detects. Stored available EGM's shows AF with vent rates @ 176-180 bpm. The longest episode lasted 12 secs on May 28, 2015 Pt is on Warfarin as noted in Hat Forming Machine Feeder. CREAM DIPPER-48%, VSt-45%. Presenting rhythm: BiV paced with intermittent [...] Interrogation completed by: Marychuy Reese R.N. EP Time Clock Mechanic: DAYSI FAITH MD This report has been electronically signed by Daysi Faith Procedure Note Vianney Tavarez MD - 07/29/2015 FINAL IMPLANTABLE DEVICE FOLLOW-UP REPORT PATIENT NAME: ANDREW SANCHEZ Age: 64 : 1950 Initial Implant Date: 06/20/2013 Follow-Up Date/Time: 07/25/2015 02:00:00 PM Nurse: Marychuy Reese R.N. EP Time Clock Mechanic: DAYSI FAITH MD Referring MD: CLINT TOLEDO Visit Type: ICD Follow-Up Reason For Follow-Up: Scheduled follow-up DIAGNOSES: Cardiomyopathy, unspecified Persistent atrial fibrillation Presence of automatic (implantable) cardiac defibrillator PROCEDURES: ICD Interrogation (in person) ICD Programming, Dual Lead Primary Diagnosis: Cardiomyopathy Today's Rhythm: BiV paced Underlying Rhythm: NSR Battery Status Voltage: 3.8-4.3yrs Charge Time (sec): 9.5 Device / Leads Data: DEVICE DATA: Proced ure: Implant Device: Biv icd Date Implanted: 06/20/2013 Rn Intern: [employer] Model Name: AMADO BUSH Model Number: [id number] Serial No: [id number] Mode: Ssir Location: Left upper chest LEAD DATA: Date Implanted: 06/20/2013 06/20/2013 Active: Active Active Rn Intern: St. Alex St. Alex Model Name: APRIL BETANCUR Model Number: [id number]-65 [id number]-86 Serial No: [id number] Polarity: Bipolar Bipolar Fixation/Type: Screw-in Tined Lead [...] Bradycardia and Tachycardia Episodes Since Counters Cleared CREAM DIPPER(%): 48 VS(%): 8 Counters VHR Detections: 10 Heart Rate Histogram Distribution: Good Programming Comments (10) VT detects. Stored available EGM's shows AF with vent rates @ 176-180bpm. The longest episode lasted 12 secs on May 28, 2015 Pt is on Warfarin asnoted in Hat Forming Machine Feeder. CREAM DIPPER-48%, VSt-45%. Presenting rhythm: BiV paced withintermittent VStrigger pacing @ 70 bpm. Intrinsic rhythm: AF/VS w/vent rates @ 70-100bpm. HR histograms with good distribution w/rates primarily 50-130 bpm. All ICD measurements are stable. All findings were verbally communicated to Lu Zepeda MD. Pt is scheduled to transmit in November and RTC in March. Next Follow-Up 4 Interrogation completed by: Marychuy Reese R.N. EP Time Clock Mechanic: DAYSI FAITH MD This report has been electronically signed by Daysi Faith us Clint Toledo MD, PhD CV CARDIAC SERVICES ORDERA BLES Final Result [facility] [address] [facility] [place] [address] documented in this encounter Visit Diagnoses Diagnosis Cardiac arrhythmia, unspecified cardiac arrhythmia type Cardiomyopathy Other primary cardiomyopathies Persistent atrial fibrillation Atrial fibrillation Presence of automatic implantable cardioverter-defibrillator documented in this encounter Additional Health Concerns Infection Onset Date Last Indicated Resolved Time CoV-Risk 02/10/2024 02/10/2024 02/21/2024 1:22 AM EST RSV 02/10/2024 02/10/2024 02/17/2024 1:25 AM EST documented as of this encounter Care Teams Pricing Director Relationship Specialty Start Date End Date Valeriano Douglas MD [address] [address] PCP - General 08/07/13 02/27/17 documented as of this encounter Additional Source Comments The information contained in this document represents components of the legal health record. It is not the complete legal health record.[facility]
--- OUTSIDE RECORDS SUMMARY | 2015-10-22 15:54 | XMS_ITS | Encounter Summary ---
Author Organization [facility] Address On license of [facility] [address] [place] [address] Phone Care Team Providers Care Stock Tracer Name Role Phone Valeriano Douglas MD Primary Care Provider [phone] Encounter Details Date Type Department Care Team (Late st Contact Info) Description 10/22/2015 3:54 PM EDT Hospital Encounter [facility] EP Pacer Lab 55 [facility], Floor 1, [address] [place] [address] Sumit Toledo MD, PhD 55 [facility] [address] [place] [address] [email or web address] .[facility] Social History Tobacco Use Types Packs/Day [...] st Contact Info) Description 07/09/2024 Procedure Pass [facility] Cardiology Division [address] [facility], [address] [place] [address] 08/16/2024 Procedure Pass [facility] Cardiology Division [address] [facility] [facility], [address] [place] [address] 10/05/2024 Procedure Pass [facility] Cardiology Division [address] [place] [address] [facility] [address] [place] [address] 11/09/2024 Procedure Pass [facility] Cardiology Division [address] [facility] [facility], [address] [place] [address] 11/22/2024 Procedure Pass [facility] Cardiology Division [address] [facility] [facility], [address] [place] [address] 11/22/2024 Procedure Pass [facility] Cardiology Division [address] [facility] [address] [facility] [facility], [address] [place] [address] 11/26/2024 Procedure Pass [facility] Echo Lab [address] [place] [address] 12/05/2024 Procedure Pass [facility] Cardiology Division [address] [facility], [address] [place] [address] 12/05/2024 Procedure Pass [facility] Cardiology Division [address] [facility] [facility], [address] [place] [address] 12/22/2024 7:00 AM EST Appointment [facility] Cardiology Division [address] [facility] [address] [facility] [facility], [address] [place] [address] Sumit Toledo MD, PhD [address] [place] [phone] [email or web address] 01/21/2025 7:00 AM EST Appointment [facility] Cardiology Division 55 [facility], [address] [place] [address] Sumit Toledo MD, PhD [address] [address] [email or web address] 02/21/2025 10:30 AM EST Appointment [facility] Cardiology Division 55 [facility], [address] [place] [address] Sumit Toledo MD, PhD [address] [place] [phone] [email or web address] 05/20/2025 10:30 AM EDT Appointment [facility] Echo Lab [address] [place] [address] Tal Stanley MD [address] [address] [email or web address] 07/12/2025 9:00 AM EDT Appointment [facility] Cardiac EP 32 [facility], 5th Floor, [address] [place] [address] Sumit Toledo MD, PhD [address] [place] [address] [email or web address] 07/12/2025 9:30 AM EDT Office Visit [facility] Cardiac Arrhythmia Service 32 [facility], 5th Floor, [address] [place] [address] Lisa Mccarthy, TONYA [address] [address] [email or web address] 07/12/2025 11:00 AM EDT Office Visit [facility] Heart Failure & Transplantation [address] [facility], 5th Floor, [address] [place] [address] Tal Stanley MD 55 [facility] [address] [place] [address] [email or web address] Pending Results Name Type Priority Associated [...] documented as of this encounter Care Teams Stock Tracer Relationship Specialty Start Date End Date Valeriano Douglas MD [address] [address] PCP - General 08/07/13 02/27/17 documented as of this encounter Additional Source Comments The information contained in this document represents components of the legal health record. It is not the complete legal health record.[facility]
--- OUTSIDE RECORDS SUMMARY | 2016-02-11 13:11 | XMS_ITS | Encounter Summary ---
Author Organization [facility] Address [facility] [address] [place] [address] Phone Care Team Providers Care Hairspring Fabrication Supervisor Name Role Phone Valeriano Douglas MD Primary Care Provider [phone] Encounter Details Date Type Department Care Team (Late st Contact Info) Description 02/11/2016 12:11 PM EST Hospital Encounter [facility] [address] [facility], Floor 1, Room [address] [place] [address] Clint Garcia MD, PhD 55 [facility] [address] [place] [address] [email or web address] Social History Tobacco Use Types [...] Info) Description 07/09/2024 Procedure Pass [facility] [address] [facility], [address] [place] [address] 08/16/2024 Procedure Pass [facility] [address] [facility] [facility], [address] [place] [address] 10/05/2024 Procedure Pass [facility] 55 [email or web address], [address] [place] [address] 11/09/2024 Procedure Pass [facility] [address] [facility] [facility], [address] [place] [address] 11/22/2024 Procedure Pass [facility] [address] [facility] [facility], [address] [place] [address] 11/22/2024 Procedure Pass [facility] [address] [facility] [facility], [address] [place] [address] 11/26/2024 Procedure Pass [facility] Echo Lab 30 [place] [address] 12/05/2024 Procedure Pass [facility] [address] [facility] [facility], [address] [place] [address] 12/05/2024 Procedure Pass [facility] [address] [facility], [address] [place] [address] 12/22/2024 7:00 AM EST Appointment [facility] [address] [facility] [facility], [address] [place] [address] Clint Garcia MD, PhD [address] [place], [place] [address] [address] [email or web address] 01/21/2025 7:00 AM EST Appointment [facility] [address] [facility], [address] [place] [address] Clint Garcia MD, PhD 55 [facility] [place] [address] [email or web address] 02/21/2025 10:30 AM EST Appointment [facility] [address] [facility], [address] [place] [address] Clint Garcia MD, PhD [address] [facility] [address] [email or web address] 05/20/2025 10:30 AM EDT Appointment [facility] Echo Lab 30 [place] [address] Tal Stanley MD [address] [address] [email or web address] 07/12/2025 9:00 AM EDT Appointment [facility]iac EP 32 [facility], 5th Floor, [address] [place] [address] Clint Garcia MD, PhD [address] [address] [email or web address] 07/12/2025 9:30 AM EDT Office Visit [facility]iac Arrhythmia Service 32 [facility], 5th Floor, [address] [place] [address] Lisa Mccarthy, TONYA [address] [address] [email or web address] 07/12/2025 11:00 AM EDT Office Visit [facility] Heart Failure & Transplantation 32 [facility], 5th Floor, [address] [place] [address] Tal Stanley MD 55 [facility] [address] [place] [address] [email or web address] documented as of this encounter Procedures Procedure Name Priority Date/Time Associated Diagnosis Comments EP DEVICE CHECK / FOLLOW UP Routine 02/11/2016 12:11 PM EST Cardiac arrhythmia, unspecified cardiac arrhythmia type Cardiomyopathy Persistent atrial fibrillation Automatic implantable cardioverter-defibri llator in situ documented in this encounter Results * EP Device Check / Follow Up (02/11/2016 12:11 PM EST) 02/11/2016 12:1 1 PM EST Narrative [facility] - 03/17/2016 4:12 PM EST FINAL IMPLANTABLE DEVICE FOLLOW-UP REPORT PATIENT NAME: ANDREW CARUSO Age: 65 : 1950 Initial Implant Date: 06/20/2013 Follow-Up Date/Time: 02/13/2016 02:00:00 PM Nurse: Marychuy Reese R.N. EP Paper Box Maker: CLAUDY DOAN MD Referring MD: CLINT GARCIA [...] Implant Device: Biv icd Date Implanted: 06/20/2013 Cook Frozen Dessert: [email or web address] Model Name: AMADO BUSH Model Number: [id number] Serial No: [id number] Mode: Ssir Location: Left upper chest LEAD DATA: Date Implanted: 06/20/2013 06/20/2013 Active: Active Active [employer] Dessert: St. Alex St. Alex Model Name: APRIL BETANCUR Model Number: 7122Q-65 [id number]-86 Serial No: [id number] Polarity: Bipolar Bipolar Fixation/Type: Screw-in Tined Lead [...] Bradycardia and Tachycardia Episodes Since Counters Cleared ROOF SLATER(%): 54 Counters Heart Rate Histogram Distribution: Good Programming Comments No VT/VF detects. St Pt with chronic AF on Warfarin as noted in Neurology Technologist. BiVP- 54% increased from 48% snce 07/25/15, VSt-36%. Presenting rhythm: BiV paced @ 70 bpm with intermittent VStrigger pacing. Intrinsic rhythm: AF/VS w/vent rates @ 70-100 bpm. HR histograms with good distribution w/rates primarily 70-130 bpm with few binned rates from 130-220 bpm range. All ICD measurements are WNL. Pts device is on the [place] Advisory Alert. TUCKER Guillory Rep reviewed information and answered questions. Arthur [...] Interrogation completed by: Marychuy Reese R.N. EP Paper Box Maker: CLAUDY DOAN MD This report has been electronically signed by Claudy Doan Procedure Note Yasmin Loco MD, PhD - 03/17/2016 FINAL IMPLANTABLE DEVICE FOLLOW-UP REPORT PATIENT NAME: ANDREW CARUSO Age: 65 : 1950 Initial Implant Date: 06/20/2013 Follow-Up Date/Time: 02/13/2016 02:00:00 PM Nurse: Marychuy Reese R.N. EP Paper Box Maker: CLAUDY DOAN MD Referring MD: CLINT GARCIA [...] Implant Device: Biv icd Date Implanted: 06/20/2013 Cook Frozen Dessert: [email or web address] Model Name: AMADO BUSH Model Number: [id number] Serial No: [id number] Mode: Ssir Location: Left upper chest LEAD DATA: Date Implanted: 06/20/2013 06/20/2013 Active: Active Active [employer] Dessert: St. Alex St. Alex Model Name: APRIL BETANCUR Model Number: [id number]-65 [id number]-86 Serial No: [id number] Polarity: Bipolar Bipolar Fixation/Type: Screw-in Tined Lead [...] Bradycardia and Tachycardia Episodes Since Counters Cleared ROOF SLATER(%): 54 Counters Heart Rate Histogram Distribution: Good Programming Comments No VT/VF detects. St Pt with chronic AF on Warfarin as noted in Neurology Technologist.BiVP- 54% increased from 48% snce 07/25/15, VSt-36%. Presenting rhythm: BiV paced@ 70 bpm with intermittent VStrigger pacing. Intrinsic rhythm: AF/VS w/ventrates @ 70-100 bpm. HR histograms with good distribution w/rates primarily 70-130bpm with few binned rates from 130-220 bpm range. All ICD measurements areWNL. Pts device is on the Advisory Alert. Waylon Peopels, Rep reviewedinformation and answered questions. Arthur remote monitoring confirmed. Vibratoryalert was progammed from 6 secs to 16 secs. Vibratory alert was demonstrated andconfirmed by the pt. All findings were verbally communicated to Annelise Campoverde NP whois seeing the pt today. Pt is scheduled to transmit in May and RTC inJuly. Next Follow-Up 4 months Interrogation completed by: Marychuy Reese R.N. EP Paper Box Maker: CLAUDY DOAN MD This report has been electronically signed by Claudy Doan Clint Garcia MD, PhD CV CARDIAC SERVICES ORDERA BLES Final Result [facility] [address] [facility] [place] [address] documented in this encounter Visit Diagnoses Diagnosis Cardiac arrhythmia, unspecified cardiac arrhythmia type Cardiomyopathy Other primary cardiomyopathies Persistent atrial fibrillation Atrial fibrillation Automatic implantable cardioverter-defibrillator in situ documented in this encounter Additional Health Concerns Infection Onset Date Last Indicated Resolved Time CoV-Risk 02/10/2024 02/10/2024 02/21/2024 1:22 AM EST RSV 02/10/2024 02/10/2024 02/17/2024 1:25 AM EST documented as of this encounter Care Teams Hairspring Fabrication Supervisor Relationship Specialty Start Date End Date Valeriano Douglas MD [address] [address] PCP - General 08/07/13 02/27/17 documented as of this encounter Additional Source Comments The information contained in this document represents components of the legal health record. It is not the complete legal health record.[facility]
--- OUTSIDE RECORDS SUMMARY | 2024-02-06 10:27 | XMS_ITS | Encounter Summary ---
Author Organization [facility] Address [facility] [address] [place] [address] Phone Care Team Providers Care Smt Technician Name Role Phone Eduardo Rutledge MD Primary Care Provid er Encounter Details Date Type Department Care Team (Late st Contact Info) Description 02/06/2024 9:27 AM EST Hospital Encounter [facility] Cardiology Division [address] [place] [address], [address] [place] [address] Sumit Toledo MD, PhD [address] [place] [address]-[address] [place] [address] [email or web address] Social History Tobacco Use Types Packs/Day [...] st Contact Info) Description 07/09/2024 Procedure Pass [facility] Cardiology Division [address] [place] [address], [address] [place] [address] 08/16/2024 Procedure Pass [facility] Cardiology Division [address] [place] [facility], [address] [place] [address] 10/05/2024 Procedure Pass [facility] Cardiology Division [address] [facility] [address] [place] [facility], [address] [place] [address] 11/09/2024 Procedure Pass [facility] Cardiology Division [address] [place] [facility], [address] [place] [address] 11/22/2024 Procedure Pass [facility] Cardiology Division [address] [place] [facility], [address] [place] [address] 11/22/2024 Procedure Pass [facility] Cardiology Division [address] [place] [facility], [address] [place] [address] 11/26/2024 Procedure Pass [facility] Echo Lab [address] [place] [address] 12/05/2024 Procedure Pass [facility] Cardiology Division [address] [place] [facility], [address] [place] [address] 12/05/2024 Procedure Pass [facility] Cardiology Division [address] [place] [facility], [address] [place] [address] 12/22/2024 7:00 AM EST Appointment [facility] Cardiology Division [address] [place] [facility], [address] [place] [address] Sumit Toledo MD, PhD [address] [place] [phone] [email or web address] 01/21/2025 7:00 AM EST Appointment [facility] Cardiology Division [address] [facility], [address] [place] [address] Sumit Toledo MD, PhD [address] [address] [email or web address] 02/21/2025 10:30 AM EST Appointment [facility] Cardiology Division [address] [facility], [address] [place] [address] Sumit Toledo MD, PhD [address] [place] [phone] [email or web address] 05/20/2025 10:30 AM EDT Appointment [facility] Echo Lab [address] [place] [address] Tal Stanley MD [address] [address] [email or web address] 07/12/2025 9:00 AM EDT Appointment [facility] Cardiac EP [address] [facility], 5th Floor, [address] [place] [address] Sumit Toledo MD, PhD [address] [place] [phone] [email or web address] 07/12/2025 9:30 AM EDT Office Visit [facility] Cardiac Arrhythmia Service [address] [facility], 5th Floor, [address] [place] [address] Lisa Mccarthy, TONYA [address] [address] [email or web address] 07/12/2025 11:00 AM EDT Office Visit [facility] Heart Failure & Transplantation [address] [facility], 5th Floor, [address] [place] [address] Tal Stanley MD [address] [facility] [address] [place] [address] [email or web address] documented as of this encounter Procedures Procedure Name Priority Date/Time Associated Diagnosis Comments CIED ALERT Routine 02/05/2024 2:00 AM EST Presence of cardiac defibrillator documented in this encounter Results * CIED ALERT (02/05/2024 2:00 AM EST) Date Time Interrogation Session [id number] [facility] Implantable Pulse Generator Die Try Out Worker [facility] Implantable Pulse Generator Model [id number] Quail HF [facility] Implantable Pulse Generator Serial Number [id number] [facility] Type Interrogation Session Remote Device Initiated [facility] Re-programmed During Session NO [facility] Clinic Name Arrhythmia Device Clinic [facility] Implantable Pulse Generator Type Cardiac Resynchronization Therapy - Defibrillator [facility] Generator Implant Date 20200513 [facility] Implantable Lead Die Try Out Worker [facility] Implantable Lead Model 1458Q Quartet [facility] Implantable Lead Serial Number [id number] [facility] Implantable Lead Implant Date 20130620 [facility] Implantable Lead Polarity Type Quadripolar Lead [facility] Implantable Lead Location Detail 1 UNKNOWN [facility] Implantable Lead Special Function Implant [facility] Implantable Lead Location Left Atrium [facility] Implantable Lead Die Try Out Worker [facility] Implantable Lead Model 7122Q Durata SJ4 [facility] Implantable Lead Serial Number [id number] [facility] Implantable Lead Implant Date 20130620 [facility] Implantable Lead Polarity Type Tripolar Lead [facility] Implantable Lead Special Function Implant [facility] Implantable Lead Location Right Ventricle [facility] Richie Setting Mode (NBG Code) VVTR [facility] Richie Setting Lower Rate Limit 70 {beats} /min [facility] Richie Setting Maximum Sensor Rate 120 {beats} /min [facility] Lead Channel Setting Sensing Polarity Bipolar [facility] Lead Channel Setting Sensing Polarity Bipolar [facility] Lead Channel Setting Sensing Anode Location Right Ventricle [facility] Lead Channel Setting Sensing Anode Terminal Ring [facility] Lead Channel Setting Sensing Cathode Location Right Ventricle [facility] Lead Channel Setting Sensing Cathode Terminal Tip [facility] Lead Channel Setting Sensing Sensitivity 0.3 mV [facility] Lead Channel Setting Sensing Adaptation Mode Adaptive [facility] Ventricular chambers paced during DIESEL ENGINE OPERATOR pacing. BiV [facility] DIESEL ENGINE OPERATOR LV-RV Delay 20 ms [facility] Lead Channel Setting Pacing Polarity Bipolar [facility] Lead Channel Setting Pacing Polarity Bipolar [facility] Lead Channel Setting Pacing Anode Location Right Ventricle [facility] Lead Channel Setting Pacing Anode Terminal Ring [facility] Lead Channel Setting Sensing Cathode Location Right Ventricle [facility] Lead Channel [...] [facility] Zone Setting Type Category VF [facility] Zone Setting Vendor Type Category VF [facility] Zone Setting Status Active [facility] Zone Setting Detection Interval 300 ms [facility] Zone Setting Type Category VT [facility] Zone Setting Vendor Type Category VT2 [facility] Zone Setting Status Inactive [facility] Zone Setting Type Category VT [facility] Zone Setting Vendor Type Category VT1 [facility] Zone Setting Status Monitor [facility] Zone Setting Detection Interval 350 ms [...] [facility] Battery Date Time of Measurements [id number] [facility] Battery Status Middle of Service [facility] Battery RIDING SILKS CUSTODIAN Trigger When current voltage < 2.62 volts [facility] Battery Remaining Longevity 52 mo [facility] Battery Remaining Percentage 57.0 % [facility] Battery Voltage 2.95 V [facility] Capacitor Charge Type Reformation [facility] Capacitor Last Charge Date Time [id number] [facility] Capacitor Charge Time 8.9 s [facility] Capacitor Charge Energy 40 J [facility] Statistic Heart Rate Date Time Start [id number] [facility] Statistic Heart Rate Date Time End [id number] [facility] Statistic Ventricular Heart Rate Min 70 {beats} /min [facility] Statistic Ventricular Heart Rate Mean 84 {beats} /min [facility] Statistic Ventricular Heart Rate Max 240 {beats} /min [facility] Richie Statistic Date Time Start [id number] [facility] Richie Statistic Date Time End +0000 [facility] DIESEL ENGINE OPERATOR Statistic Date Time Start [id number] [facility] DIESEL ENGINE OPERATOR Statistic Date Time End + [facility] DIESEL ENGINE OPERATOR Statistic DIESEL ENGINE OPERATOR Percent Paced 57.0 % [facility] Atrial Tachy Statistic Date Time Start + [facility] Atrial Tachy Statistic Date Time End + [facility] Therapy Statistic Recent Shocks Delivered 0 [facility] Therapy Statistic Recent Shocks Aborted 0 [facility] Therapy Statistic Recent ATP Delivered 0 [facility] Therapy Statistic Recent Date Time Start [id number] [facility] Therapy Statistic Recent Date Time End [id number] [facility] Episode Statistic Recent Count 6 [facility] Episode Statistic Type Category VT [facility] Episode Statistic Vendor Type Category Non-sustained VT [facility] Episode Statistic Recent Date Time Start [id number] [facility] Episode Statistic Recent Date Time End [id number] [facility] Episode Identifier [id number] [facility] Episode Type Category VT [facility] Episode Vendor Type Category Non-sustained VT [facility] Episode Date Time [id number] [facility] Episode Duration 8 s [facility] 02/05/2024 2:00 AM EST Narrative [facility] - 02/06/2024 2:57 PM EST Alert (VVTR) DIESEL ENGINE OPERATOR-D transmission: Alert report for acute decrease in [...] Known AF, on warfarin & carvedilol per [facility] Presenting Rhythm: VST/BP 70s-130s bpm w/ suggested ectopy Programmed VVTR, BiVP 57% (overall 63%), VSt 42% (overall 36%) Dr. Toledo, Lisa Mccarthy BOTTLE LINE WORKER, and Evie Kim BOTTLE LINE WORKER updated Next Monthly Remote 02/07/24 Sumit Toledo MD, PhD [facility] BLES Final Result [address] [address] documented in this encounter Visit Diagnoses Diagnosis Presence of cardiac defibrillator documented in this encounter Additional Health Concerns Infection Onset Date Last Indicated Resolved Time CoV-Risk 02/10/2024 02/10/2024 02/21/2024 1:22 AM EST RSV 02/10/2024 02/10/2024 02/17/2024 1:25 AM EST documented as of this encounter Care Teams Smt Technician Relationship Specialty Start Date End Date Eduardo Rutledge MD [address] [place] [address] [address] PCP - General Internal Medicine 06/19/18 documented as of this encounter Additional Source Comments The information contained in this document represents components of the legal health record. It is not the complete legal health record.[facility]
--- OUTSIDE RECORDS SUMMARY | 2024-06-18 11:30 | XMS_ITS ---
Author Organization [facility] Address [address] [place] [address] Care Team Providers Care Interior Specialist Name Role Phone Eduardo Rutledge Primary Care Provider Laurie Dee [phone] Cool Encounters Encounter Location Date Provider Diagnosis [address] [address] 06/18/2024 Laurie Dee Plan Of Treatment Next Appt Details Provider Name:Laurie weiner, 12/26/2024 10:15:00 AM, [address] [place], [address], Progress Notes * Anshul SANCHEZOB:1950 (74 yo M)Acc No.[id number]:06/18/2024 Progress Note Patient: Lenny ROMAN Provider: Jason Dee DPM :1950 A ge:73 Y S ex:Male Date:06/18/2024 Address:[address] [place] [phone] Pcp:Eduardo Rutledge Subjective: * Chief Complaints: * [...] 0 06/18/2024 Generated for Francisco Enrique on: 10:27 AM EDT
[2024-12-06 09:20] LABS: Prothrombin Time Whole Bld POC 27.4 sec (11.1-13.5); ~PT, ~INR - Anti Coag Clinic 2.3 (0.9-1.1)
--- NOTE | 2024-12-06 09:27 | MHC.OFFVISCO ---
Intake Intake Visit Reasons: Anticoagulation Allergies penicillamine Adverse Reaction (Unknown, Verified 12/06/24 09:13) nausea,vomiting Medication List - Last Reconciled 12/06/24 by Yulissa Cates RN [ARJUNA PO] ascorbic acid (vitamin C) 1 tab PO DAILY B-complex with vitamin C (Vitamin B Complex C W/B-12) 1 cap PO DAILY digoxin 125 mcg PO DAILY gabapentin PO [glucoasamine sulfate PO] [magnesium PO] metoprolol succinate ER 150 mg (1.5 x 100 mg) PO Q12H [N-acetyl cysteine (NAC) PO] trazodone 50 mg PO BEDTIME PRN vitamin A palmitate 1 cap PO DAILY vitamin E acetate 1 cap PO DAILY warfarin 5 mg See Protocol PO DAILY [ZINC PO] Nursing Note INR: 2.3 in therapeutic range Medications and supplements reviewed No changes in health, diet, medications, or supplements, Denies any signs and symptoms of bleeding or bruising or clotting. Bleeding, bruising, clotting discussed Nutritional guidance given Dose: 2.5MG X 1 DAY/ 5MG X 6 DAYS F/U INR: 3 WEEKS/ 12/26/24 Patient verbalizes understanding of instructions given Anti-Coag Initial Assessment Social Hx Patient Tobacco Use Status: Never used Tobacco alcohol intake: never Coding Level of Care Code Est Patient Level 1 Diagnoses Current use of anticoagulant therapy Z79.01 Results AMB INR Fingerstick AMB INR Fingerstick 2.3 Last Edit by Yulissa Cates RN on 12/06/24 09:23 MANUAL ENTRY Assessment & Plan Assessment & Plan (1) Current use of anticoagulant therapy: Code(s): Z79.01 - agency owner (current) use of 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
--- OUTSIDE RECORDS SUMMARY | 2024-12-06 10:25 | XMS_ITS | Encounter Summary ---
Author Organization [facility] Address [facility] [employer] [address] [address] Phone Care Team Providers Care Wort Extractor Name Role Phone Eduardo Rutledge MD Primary Care Provid er Encounter Details Date Type Department Care Team (Late st Contact Info) Description 09/09/2022 Procedure Pass [facility] [address] [place] [address] Social History Tobacco Use Types Packs/Day Years [...] st Contact Info) Description 07/09/2024 Procedure Pass [facility] [address] [facility], [address] [place] [address] 08/16/2024 Procedure Pass [facility] [address] [place] [facility], [address] [place] [address] 10/05/2024 Procedure Pass [facility] [address] [place] [facility], [address] [place] [address] 11/09/2024 Procedure Pass [facility] [address] [facility], [address] [place] [address] 11/22/2024 Procedure Pass [facility] [address] [place] [address] [facility], [address] [place] [address] 11/22/2024 Procedure Pass [facility] [address] [facility], [address] [place] [address] 11/26/2024 Procedure Pass [facility] Echo Lab [address] [place] [address] 12/05/2024 Procedure Pass [facility] [address] [facility], [address] [place] [address] 12/05/2024 Procedure Pass [facility] [address] [facility], [address] [place] [address] 12/22/2024 7:00 AM EST Appointment [facility] [address] [place] [facility], [address] [place] [address] Sumit Toledo MD, PhD [address] [place] [phone] [email or web address] 01/21/2025 7:00 AM EST Appointment [facility] [address] [facility] [address] [facility], [address] [place] [address] Sumit Toledo MD, PhD 55 [facility] [place] [address] [email or web address] 02/21/2025 10:30 AM EST Appointment [facility] 55 [facility], [address] [place] [address] Sumit Toledo MD, PhD [address] [place], [place] [address] [place] [address] [email or web address] 05/20/2025 10:30 AM EDT Appointment [facility] Echo Lab [address] [place] [address] Tal Stanley MD [address] [address] [email or web address] 07/12/2025 9:00 AM EDT Appointment [facility] Cardiac EP 32 [facility], 5th Floor, [address] [place] [address] Sumit Toledo MD, PhD [address] [place] [phone] [email or web address] 07/12/2025 9:30 AM EDT Office Visit [facility] Cardiac Arrhythmia Service 32 [facility], 5th Floor, [address] [place] [address] Lisa Mccarthy NP [address] [address] [email or web address] 07/12/2025 11:00 AM EDT Office Visit [facility] Heart Failure & Transplantation 32 [facility], 5th Floor, [address] [place] [address] Tal Stanley MD [address] [place] [address] [email or web address] documented as of this encounter Visit Diagnoses Not on filedocumented in this encounter Additional Health Concerns Infection Onset Date Last Indicated Resolved Time CoV-Risk 02/10/2024 02/10/2024 02/21/2024 1:22 AM EST RSV 02/10/2024 02/10/2024 02/17/2024 1:25 AM EST documented as of this encounter Care Teams Wort Extractor Relationship Specialty Start Date End Date Eduardo Rutledge MD [address] [place] [phone] PCP - General Internal Medicine 06/19/18 documented as of this encounter Additional Source Comments The information contained in this document represents components of the legal health record. It is not the complete legal health record.[facility]
--- OUTSIDE RECORDS SUMMARY | 2024-12-06 10:25 | XMS_ITS | Encounter Summary ---
Author Organization [facility] Address [facility] [address] [place] [address] Phone Care Team Providers Care Night Time Nanny Name Role Phone Eduardo Rutledge MD Primary Care Provid er Encounter Details Date Type Department Care Team (Late st Contact Info) Description 10/05/2024 Procedure Pass [facility] EP 32 [facility], 5th Floor, [address] [place] [address] Social History Tobacco Use Types Packs/Day Years [...] [facility] [address] [place] [facility], [address] [place] [address] 08/16/2024 Procedure Pass [facility] [address] [facility], [address] [place] [address] 10/05/2024 Procedure Pass [facility] [address] [facility], [address] [place] [address] 11/09/2024 Procedure Pass [facility] [address] [facility], [address] [place] [address] 11/22/2024 Procedure Pass [facility] Cardiology Division [address] [facility], [address] [place] [address] 11/22/2024 Procedure Pass [facility] [address] [place], [address] [place] [address] 11/26/2024 Procedure Pass [facility] Echo Lab 30 [place] [address] 12/05/2024 Procedure Pass [facility] [address] [place] [facility], [address] [place] [address] 12/05/2024 Procedure Pass [facility] [address] [place] [facility], [address] [place] [address] 12/22/2024 7:00 AM EST Appointment [facility] [address] [place] [facility], [address] [place] [address] Sumit Toledo MD, PhD [address] [place], [place] [address] [address] [email or web address] 01/21/2025 7:00 AM EST Appointment [facility] [address] [place] [facility], [address] [place] [address] Sumit Toledo MD, PhD 55 [facility] [place] [address] [email or web address] 02/21/2025 10:30 AM EST Appointment [facility] 55 [facility], [address] [place] [address] Sumit Toledo MD, PhD 55 [facility] [place] [address] [email or web address] 05/20/2025 10:30 AM EDT Appointment [facility] Echo Lab [address] [place] [address] Tal Stanley MD [address] [address] [email or web address] 07/12/2025 9:00 AM EDT Appointment [facility] Cardiac EP 32 [facility], 5th Floor, [address] [place] [address] Sumit Toledo MD, PhD [address] [place], [place] [address] [address] [email or web address] 07/12/2025 9:30 AM EDT Office Visit [facility] Cardiac Arrhythmia Service 32 [facility], 5th Floor, [address] [place] [address] Lisa Mccarthy NP [address] [address] [email or web address] 07/12/2025 11:00 AM EDT Office Visit [facility] Heart Failure & Transplantation 32 [facility], 5th Floor, [address] [place] [address] Tal Stanley MD [address] [place] [address] [email or web address] documented as of this encounter Visit Diagnoses Not on filedocumented in this encounter Care Teams Night Time Nanny Relationship Specialty Start Date End Date Eduardo Rutledge MD [address] [place] [address] PCP - General Internal Medicine 06/19/18 documented as of this encounter Additional Source Comments The information contained in this document represents components of the legal health record. It is not the complete legal health record.[facility]
--- OUTSIDE RECORDS SUMMARY | 2024-12-06 10:25 | XMS_ITS | Encounter Summary ---
Author Organization [facility] Address [facility] [address] [place] [address] Phone Care Team Providers Care Director Athletic Name Role Phone Eduardo Rutledge MD Primary Care Provid er Encounter Details Date Type Department Care Team (Late st Contact Info) Description 08/16/2024 Procedure Pass [facility] 55 [facility], [address] [place] [address] Social History Tobacco Use Types Packs/Day Years [...] Contact Info) Description 07/09/2024 Procedure Pass [facility] [address] [place] [facility], [address] [place] [address] 08/16/2024 Procedure Pass [facility] [address] [facility], [address] [place] [address] 10/05/2024 Procedure Pass [facility] [address] [facility], [address] [place] [address] 11/09/2024 Procedure Pass [facility] [address] [place] [facility], [address] [place] [address] 11/22/2024 Procedure Pass [facility] Cardiology Division [address] [facility], [address] [place] [address] 11/22/2024 Procedure Pass [facility] [address] [place] [facility], [address] [place] [address] 11/26/2024 Procedure Pass [facility] Echo Lab [address] [place] [address] 12/05/2024 Procedure Pass [facility] Cardiology Division [address] [facility], [address] [place] [address] 12/05/2024 Procedure Pass [facility]iology Division [address] [place] [facility], [address] [place] [address] 12/22/2024 7:00 AM EST Appointment [facility] [address] [place] [facility], [address] [place] [address] Sumit Toledo MD, PhD [address] [place] [address] [email or web address] 01/21/2025 7:00 AM EST Appointment [facility] Cardiology Division [address] [facility], [address] [place] [address] Sumit Toledo MD, PhD 55 [facility]1109 [place] [address] [email or web address] 02/21/2025 10:30 AM EST Appointment [facility] Cardiology Division 55 [facility], [address] [place] [address] Sumit Toledo MD, PhD 55 [facility] [place] [address] [email or web address] 05/20/2025 10:30 AM EDT Appointment [facility] Echo Lab [address] [place] [address] Tal Stanley MD [address] [address] [email or web address] 07/12/2025 9:00 AM EDT Appointment [facility] Cardiac EP 32 [facility], 5th Floor, [address] [place] [address] Sumit Toledo MD, PhD [address] [place] [address] [email or web address] 07/12/2025 9:30 AM EDT Office Visit [facility] Cardiac Arrhythmia Service 32 [facility], 5th Floor, [address] [place] [address] Lisa Mccarthy NP [address] [address] [email or web address] 07/12/2025 11:00 AM EDT Office Visit [facility] Heart Failure & Transplantation 32 [facility], 5th Floor, [address] [place] [address] Tal Stanley MD [address] [place] [address] [email or web address] documented as of this encounter Visit Diagnoses Not on filedocumented in this encounter Care Teams Director Athletic Relationship Specialty Start Date End Date Eduardo Rutledge MD [address] [place] [address] PCP - General Internal Medicine 06/19/18 documented as of this encounter Additional Source Comments The information contained in this document represents components of the legal health record. It is not the complete legal health record.[facility]
--- OUTSIDE RECORDS SUMMARY | 2024-12-06 10:25 | XMS_ITS | Encounter Summary ---
Author Organization [facility] Address [facility] [address] [place] [address] Phone Care Team Providers Care Film Masker Name Role Phone Eduardo Rutledge MD Primary Care Provid er Encounter Details Date Type Department Care Team (Late st Contact Info) Description 06/08/2023 Procedure Pass [facility] 55 [facility], [address] [place] [address] Social History Tobacco Use Types Packs/Day Years [...] st Contact Info) Description 07/09/2024 Procedure Pass [facility] [address] [place] [facility], [address] [place] [address] 08/16/2024 Procedure Pass [facility] [address], [address] [place] [address] 10/05/2024 Procedure Pass [facility] [address], [address] [place] [address] 11/09/2024 Procedure Pass [facility] [address] [place] [facility], [address] [place] [address] 11/22/2024 Procedure Pass [facility] Cardiology Division [address] [facility], [address] [place] [address] 11/22/2024 Procedure Pass [facility] [address] [place] [facility], [address] [place] [address] 11/26/2024 Procedure Pass [facility] Echo Lab [address] [place] [address] 12/05/2024 Procedure Pass [facility] [address] [facility], [address] [place] [address] 12/05/2024 Procedure Pass [facility] [address] [place] [facility], [address] [place] [address] 12/22/2024 7:00 AM EST Appointment [facility] [address] [place] [facility], [address] [place] [address] Sumit Toledo MD, PhD [address] [place] [address] [email or web address] 01/21/2025 7:00 AM EST Appointment [facility] [address] [facility], [address] [place] [address] Sumit Toledo MD, PhD 55 [facility] [place] [address] [email or web address] 02/21/2025 10:30 AM EST Appointment [facility] 55 [facility], [address] [place] [address] Sumit Toledo MD, PhD 55 [facility] [place] [address] [email or web address] 05/20/2025 10:30 AM EDT Appointment [facility] Echo Lab [address] [place] [address] Tal Stanley MD [address] [address] [email or web address] 07/12/2025 9:00 AM EDT Appointment [facility] Cardiac EP 32 [facility], 5th Floor, [address] [place] [address] Sumit Toledo MD, PhD [address] [place] [address] [email or web address] 07/12/2025 9:30 AM EDT Office Visit [facility] Cardiac Arrhythmia Service 32 [facility], 5th Floor, [address] [place] [address] Lisa Mccarthy NP [address] [address] [email or web address] 07/12/2025 11:00 AM EDT Office Visit [facility] Heart Failure & Transplantation 32 [facility], 5th Floor, [address] [place] [address] Tal Stanley MD [address] [place] [address] [email or web address] documented as of this encounter Visit Diagnoses Not on filedocumented in this encounter Additional Health Concerns Infection Onset Date Last Indicated Resolved Time CoV-Risk 02/10/2024 02/10/2024 02/21/2024 1:22 AM EST RSV 02/10/2024 02/10/2024 02/17/2024 1:25 AM EST documented as of this encounter Care Teams Film Masker Relationship Specialty Start Date End Date Eduardo Rutledge MD [address] [place] [address] PCP - General Internal Medicine 06/19/18 documented as of this encounter Additional Source Comments The information contained in this document represents components of the legal health record. It is not the complete legal health record.[facility]
--- OUTSIDE RECORDS SUMMARY | 2024-12-06 10:25 | XMS_ITS | Encounter Summary ---
Author Organization [facility] Address [facility] [address] [place] [address] Phone Care Team Providers Care Window Assembler Name Role Phone Eduardo Rutledge MD Primary Care Provid er Encounter Details Date Type Department Care Team (Late st Contact Info) Description 04/19/2020 Procedure Pass [facility] [address] [facility], [address] [place] [address] Social History Tobacco Use Types Packs/Day Years [...] st Contact Info) Description 07/09/2024 Procedure Pass [facility] [address] [facility], [address] [place] [address] 08/16/2024 Procedure Pass [facility] [address] [facility], [address] [place] [address] 10/05/2024 Procedure Pass [facility] [address], [address] [place] [address] 11/09/2024 Procedure Pass [facility] [address] [facility], [address] [place] [address] 11/22/2024 Procedure Pass [facility] [address] [facility], [address] [place] [address] 11/22/2024 Procedure Pass [facility] [address] [facility] [place] [facility], [address] [place] [address] 11/26/2024 Procedure Pass [facility] Echo Lab 30 [place] [address] 12/05/2024 Procedure Pass [facility] [address] [facility], [address] [place] [address] 12/05/2024 Procedure Pass [facility] [address], [address] [place] [address] 12/22/2024 7:00 AM EST Appointment [facility] [address] [facility], [address] [place] [address] Sumit Toledo MD, PhD [address] [place] [address] [email or web address] 01/21/2025 7:00 AM EST Appointment [facility] [address] [facility], [address] [place] [address] Sumit Toledo MD, PhD [address] [place], [place] [address] [address] [email or web address] 02/21/2025 10:30 AM EST Appointment [facility] [address], [address] [place] [address] Sumit Toledo MD, PhD 55 [facility] [place] [address] [email or web address] 05/20/2025 10:30 AM EDT Appointment [facility] Echo Lab 30 [place] [address] Tal Stanley MD [address] [address] [email or web address] 07/12/2025 9:00 AM EDT Appointment [facility] Cardiac EP 32 [facility], 5th Floor, [address] [place] [address] Sumit Toledo MD, PhD [address] [place], [place] [address] [address] [email or web address] 07/12/2025 9:30 AM EDT Office Visit [facility] Cardiac Arrhythmia Service 32 [facility], 5th Floor, [address] [place] [address] Lisa Mccarthy NP [address] [address] [email or web address] 07/12/2025 11:00 AM EDT Office Visit [facility] Heart Failure & Transplantation 32 [facility], 5th Floor, [address] [place] [address] Tal Stanley MD [address] [address] [email or web address] documented as of this encounter Visit Diagnoses Not on filedocumented in this encounter Additional Health Concerns Infection Onset Date Last Indicated Resolved Time CoV-Risk 02/10/2024 02/10/202402/2002/21/2024 1:22 AM EST RSV 02/10/2024 02/10/2024 02/17/2024 1:25 AM EST documented as of this encounter Care Teams Window Assembler Relationship Specialty Start Date End Date Eduardo Rutledge MD [address] [place] [address] PCP - General Internal Medicine 06/19/18 documented as of this encounter Additional Source Comments The information contained in this document represents components of the legal health record. It is not the complete legal health record.[facility]
--- OUTSIDE RECORDS SUMMARY | 2024-12-06 10:25 | XMS_ITS | Encounter Summary ---
Author Organization [facility] Address [facility] [address] [place] [address] Phone Care Team Providers Care Articulation Officer Name Role Phone Eduardo Rutledge MD Primary Care Provid er Encounter Details Date Type Department Care Team (Late st Contact Info) Description 09/07/2023 Procedure Pass [facility] Cardiac EP 32 [facility], 5th Floor, [address] [place] [address] Social History Tobacco Use Types Packs/Day Years [...] Description 07/09/2024 Procedure Pass [facility] Cardiology Division [address], [address] [place] [address] 08/16/2024 Procedure Pass [facility] Cardiology Division [address], [address] [place] [address] 10/05/2024 Procedure Pass [facility] Cardiology Division [address], [address] [place] [address] 11/09/2024 Procedure Pass [facility] Cardiology Division [address], [address] [place] [address] 11/22/2024 Procedure Pass [facility] Cardiology Division [address] [facility], [address] [place] [address] 11/22/2024 Procedure Pass [facility] Cardiology Division [address], [address] [place] [address] 11/26/2024 Procedure Pass [facility] Echo Lab 30 [place] [address] 12/05/2024 Procedure Pass [facility] Cardiology Division [address] [facility], [address] [place] [address] 12/05/2024 Procedure Pass [facility] Cardiology Division [address] [facility], [address] [place] [address] 12/22/2024 7:00 AM EST Appointment [facility] Cardiology Division [address], [address] [place] [address] Sumit Toledo MD, PhD [address] [place], [place] [address] [address] [email or web address] 01/21/2025 7:00 AM EST Appointment [facility] Cardiology Division [address] [facility], [address] [place] [address] Sumit Toledo MD, PhD [address] [facility] [place] [address] [email or web address] 02/21/2025 10:30 AM EST Appointment [facility] Cardiology Division 55 [facility], [address] [place] [address] Sumit Toledo MD, PhD [address] [facility] [place] [address] [email or web address] 05/20/2025 10:30 AM EDT Appointment [facility] Echo Lab 30 [place] [address] Tal Stanley MD [address] [address] [email or web address] 07/12/2025 9:00 AM EDT Appointment [facility] Cardiac EP 32 [facility], 5th Floor, [address] [place] [address] Sumit Toledo MD, PhD [address] [place], [place] [address] [address] [email or web address] 07/12/2025 9:30 AM EDT Office Visit [facility] Cardiac Arrhythmia Service 32 [facility], 5th Floor, [address] [place] [address] Lisa Mccarthy NP [address] [address] [email or web address] 07/12/2025 11:00 AM EDT Office Visit [facility] Heart Failure & Transplantation 32 [facility], 5th Floor, [address] [place] [address] Tal Stanley MD [address] [place] [address] [email or web address] documented as of this encounter Visit Diagnoses Not on filedocumented in this encounter Additional Health Concerns Infection Onset Date Last Indicated Resolved Time CoV-Risk 02/10/2024 02/10/2024 02/21/2024 1:22 AM EST RSV 02/10/2024 02/10/2024 02/17/2024 1:25 AM EST documented as of this encounter Care Teams Articulation Officer Relationship Specialty Start Date End Date Eduardo Rutledge MD [address] [place] [address] PCP - General Internal Medicine 06/19/18 documented as of this encounter Additional Source Comments The information contained in this document represents components of the legal health record. It is not the complete legal health record.[facility]
--- OUTSIDE RECORDS SUMMARY | 2024-12-06 10:25 | XMS_ITS | Encounter Summary ---
Author Organization [facility] Address [address] [place] [address] Drive [address] [place] [address] Phone Care Team Providers Care Fare Collector Name Role Phone Eduardo Rutledge MD Primary Care Provid er Reason for Visit * Reason Comments Medication Refill Encounter Details Date Type Department Care Team (Late st Contact Info) Description 12/17/2021 Refill [facility] Heart Failure & Transplantation 32 [facility], 5th Floor, [address] [place] [address] Mirna Moulton MD [facility] [address] [address] [email or web address] Medication Refill Social History Tobacco Use Types [...] st Contact Info) Description 07/09/2024 Procedure Pass [facility] Cardiology Division [address] [facility], [address] [place] [address] 08/16/2024 Procedure Pass [facility] Cardiology Division [address] [facility], [address] [place] [address] 10/05/2024 Procedure Pass [facility] Cardiology Division [address] [facility], [address] [place] [address] 11/09/2024 Procedure Pass [facility] Cardiology Division [address] [facility], [address] [place] [address] 11/22/2024 Procedure Pass [facility] Cardiology Division [address] [facility], [address] [place] [address] 11/22/2024 Procedure Pass [facility] Cardiology Division [address] [facility], [address] [place] [address] 11/26/2024 Procedure Pass [facility] Echo Lab [address] [place] [address] 12/05/2024 Procedure Pass [facility] Cardiology Division [address] [facility], [address] [place] [address] 12/05/2024 Procedure Pass [facility] Cardiology Division [address] [facility], [address] [place] [address] 12/22/2024 7:00 AM EST Appointment [facility] Cardiology Division [address] [facility], [address] [place] [address] Sumit Toledo MD, PhD [address] [place], [place] [address] [address] [email or web address] 01/21/2025 7:00 AM EST Appointment [facility] Cardiology Division [address], [address] [place] [address] Sumit Toledo MD, PhD [address] [address] [email or web address] 02/21/2025 10:30 AM EST Appointment [facility] Cardiology Division 55 [facility], [address] [place] [address] Sumit Toledo MD, PhD [address] [address] [email or web address] 05/20/2025 10:30 AM EDT Appointment [facility] Echo Lab 30 [place] [address] Tal Stanley MD [address] [address] [email or web address] 07/12/2025 9:00 AM EDT Appointment [facility] Cardiac EP 32 [facility], 5th Floor, [address] [place] [address] Sumit Toledo MD, PhD [address] [place] [address] [email or web address] 07/12/2025 9:30 AM EDT Office Visit [facility] Cardiac Arrhythmia Service 32 [facility], 5th Floor, [address] [place] [address] Lisa Mccarthy NP [address] [address] [email or web address] 07/12/2025 11:00 AM EDT Office Visit [facility] Heart Failure & Transplantation 32 [facility], 5th Floor, [address] [place] [address] Tal Stanley MD [address] [address] [email or web address] documented as of this encounter Visit Diagnoses Diagnosis Other cardiomyopathy Persistent atrial fibrillation Atrial fibrillation documented in this encounter Additional Health Concerns Infection Onset Date Last Indicated Resolved Time CoV-Risk 02/10/2024 02/10/2024 02/21/2024 1:22 AM EST RSV 02/10/2024 02/10/2024 02/17/2024 1:25 AM EST documented as of this encounter Care Teams Fare Collector Relationship Specialty Start Date End Date Eduardo Rutledge MD [address] [place] [address] PCP - General Internal Medicine 06/19/18 documented as of this encounter Additional Source Comments The information contained in this document represents components of the legal health record. It is not the complete legal health record.[facility]
--- OUTSIDE RECORDS SUMMARY | 2024-12-06 10:25 | XMS_ITS | Encounter Summary ---
Author Organization [facility] Address [facility] [address] [place] [address] Phone Care Team Providers Care Dye Box Operator Name Role Phone Eduardo Rutledge MD Primary Care Provid er Encounter Details Date Type Department Care Team (Late st Contact Info) Description 03/09/2023 Procedure Pass [facility] Cardiology Division [address] [place] [address], [address] [place] [address] Social History Tobacco Use Types Packs/Day Years [...] [facility] [address], [address] [place] [address] 08/16/2024 Procedure Pass [facility] Cardiology Division [address], [address] [place] [address] 10/05/2024 Procedure Pass [facility] Cardiology Division [address], [address] [place] [address] 11/09/2024 Procedure Pass [facility] Cardiology Division [address], [address] [place] [address] 11/22/2024 Procedure Pass [facility] Cardiology Division [address] [facility], [address] [place] [address] 11/22/2024 Procedure Pass [facility] Cardiology Division [address], [address] [place] [address] 11/26/2024 Procedure Pass [facility] Echo Lab 30 [place] [address] 12/05/2024 Procedure Pass [facility] Cardiology Division [address] [facility], [address] [place] [address] 12/05/2024 Procedure Pass [facility] Cardiology Division [address], [address] [place] [address] 12/22/2024 7:00 AM EST Appointment [facility] Cardiology Division [address], [address] [place] [address] Sumit Toledo MD, PhD [address] [place] [address] [email or web address] 01/21/2025 7:00 AM EST Appointment [facility] Cardiology Division [address] [facility], [address] [place] [address] Sumit oTledo MD, PhD 55 [facility] [place] [address] [email or web address] 02/21/2025 10:30 AM EST Appointment [facility] Cardiology Division 55 [facility], [address] [place] [address] Sumit Toledo MD, PhD [address] [facility] [place] [address] [email or web address] 05/20/2025 10:30 AM EDT Appointment [facility] Echo Lab 30 [place] [address] Tal Stanley MD [address] [address] [email or web address] 07/12/2025 9:00 AM EDT Appointment [facility] Cardiac EP 32 [facility], 5th Floor, [address] [place] [address] Sumit Toledo MD, PhD [address] [place] [address] [email or web address] 07/12/2025 9:30 AM EDT Office Visit [facility] Cardiac Arrhythmia Service 32 [facility], 5th Floor, [address] [place] [address] Lisa Mccarthy NP [address] [address] [email or web address] 07/12/2025 11:00 AM EDT Office Visit [facility] Heart Failure & Transplantation 32 [facility], 5th Floor, [address] [place] [address] Tal Stanley MD [address] [place] [address] [email or web address] documented as of this encounter Visit Diagnoses Not on filedocumented in this encounter Additional Health Concerns Infection Onset Date Last Indicated Resolved Time CoV-Risk 02/10/2024 02/10/2024 02/21/2024 1:22 AM EST RSV 02/10/2024 02/10/2024 02/17/2024 1:25 AM EST documented as of this encounter Care Teams Dye Box Operator Relationship Specialty Start Date End Date Eduardo Rutledge MD [address] [place] [address] PCP - General Internal Medicine 06/19/18 documented as of this encounter Additional Source Comments The information contained in this document represents components of the legal health record. It is not the complete legal health record.[facility]
--- OUTSIDE RECORDS SUMMARY | 2024-12-06 10:26 | XMS_ITS | Encounter Summary ---
Author Organization [facility] Address [facility] [address] [place] [address] Phone Care Team Providers Care Bar Staff Name Role Phone Eduardo Rutledge MD Primary Care Provid er Encounter Details Date Type Department Care Team (Late st Contact Info) Description 06/26/2021 Procedure Pass [facility] Cardiology Division 55 [facility], [address] [place] [address] Social History Tobacco Use Types Packs/Day Years [...] [facility] 55 [facility], [address] [place] [address] 08/16/2024 Procedure Pass [facility] Cardiology Division [address], [address] [place] [address] 10/05/2024 Procedure Pass [facility] Cardiology Division [address], [address] [place] [address] 11/09/2024 Procedure Pass [facility] Cardiology Division [address], [address] [place] [address] 11/22/2024 Procedure Pass [facility] Cardiology Division [address], [address] [place] [address] 11/22/2024 Procedure Pass [facility] Cardiology Division [address], [address] [place] [address] 11/26/[address] [facility] Echo Lab 30 [place] [address] 12/05/2024 Procedure Pass [facility] Cardiology Division [address], [address] [place] [address] 12/05/2024 Procedure Pass [facility] Cardiology Division [address], [address] [place] [address] 12/22/2024 7:00 AM EST Appointment [facility] Cardiology Division [address], [address] [place] [address] Sumit Toledo MD, PhD [address] [place] [address] [email or web address] 01/21/2025 7:00 AM EST Appointment [facility] Cardiology Division [address], [address] [place] [address] Sumit Toledo MD, PhD [address] [place], [place] [address] [address] [email or web address] 02/21/2025 10:30 AM EST Appointment [facility] Cardiology Division [address], [address] [place] [address] Sumit Toledo MD, PhD 55 [facility] [place] [address] [email or web address] 05/20/2025 10:30 AM EDT Appointment [facility] Echo Lab 30 [place] [address] Tal Stanley MD [address] [address] [email or web address] 07/12/2025 9:00 AM EDT Appointment [facility] Cardiac EP 32 [facility], 5th Floor, [address] [place] [address] Sumit Toledo MD, PhD [address] [place], [place] [address] [address] [email or web address] 07/12/2025 9:30 AM EDT Office Visit [facility] Cardiac Arrhythmia Service 32 [facility], 5th Floor, [address] [place] [address] Lisa Mccarthy NP [address] [address] [email or web address] 07/12/2025 11:00 AM EDT Office Visit [facility] Heart Failure & Transplantation 32 [facility], 5th Floor, [address] [place] [address] Tal Stanley MD [address] [address] [email or web address] documented as of this encounter Visit Diagnoses Not on filedocumented in this encounter Additional Health Concerns Infection Onset Date Last Indicated Resolved Time CoV-Risk 02/10/2024 02/10/202402/2002/21/2024 1:22 AM EST RSV 02/10/2024 02/10/2024 02/17/2024 1:25 AM EST documented as of this encounter Care Teams Bar Staff Relationship Specialty Start Date End Date Eduardo Rutledge MD [address] [place] [address] PCP - General Internal Medicine 06/19/18 documented as of this encounter Additional Source Comments The information contained in this document represents components of the legal health record. It is not the complete legal health record.[facility]
--- OUTSIDE RECORDS SUMMARY | 2024-12-06 10:26 | XMS_ITS | Patient Health Record ---
Author Organization [facility] Cesar ana maria [place] Address [address] [place] [address] Care Team Providers Care Color Depositing Machine Tender Name Role Phone Eduardo Rutledge Primary Care Provider Laurie Dee Unavailable [phone] Allergies Allergen (clinical drug ingredient) Drug/Non Drug [...] Status W/U Status Risk Notes Problem Neuropathy (655278606) Neuropathy (G62.9) Active confirmed Vital Signs Blood pressure diastolic 88 mm Hg 10/15/2024 Height 6ft 3in in 10/15/2024 Blood pressure systolic 120 mm Hg 10/15/2024 Weight 194 lbs 10/15/2024 BMI 24.25 kg/m2 10/15/2024 Encounters Encounter Location Date Provider Diagnosis [address] [address] 03/28/2024 Laurie Dee Neuropathic ulcer of right [...] lesser toe, left M19.072 and Neuropathy G62.[address] [address] 04/30/2024 Laurie Dee Neuropathic ulcer of right foot, limited to breakdown of skin L97.511 ; Other hammer toe(s) (acquired), right foot M20.41 and Neuropathy G62.[address] [address] 09/03/2024 Laurie Dee Other hammer toe(s) (acquired), right foot M20.41 ; Hallux limitus of right foot M20.5X1 ; Neuropathic ulcer of right foot with fat layer exposed L97.512 ; Arthritis of joint of lesser toe, right M19.071 and Neuropathy G62.[address] [address] 10/15/2024 Laurie Perica Hallux limitus of right foot M20.5X1 ; Neuropathic ulcer of right foot with fat layer exposed L97.512 ; Other hammer toe(s) (acquired), right foot M20.41 ; Arthritis of joint of lesser toe, right M19.071 ; Neuropathy G62.9 ; Other hammer toe(s) (acquired), left foot M20.42 and Neuropathic ulcer of left foot with fat layer exposed L97.[address] [place] [address] 01/10/2024 Laurie Dee [facility] [address] [address] 03/19/2024 Laurie Leila [facility] [address] [address] 04/30/2024 Laurie Leila [facility] [address] [address] 10/15/2024 Laurie Leila Assessments Encounter Date Diagnosis (ICD Code) Assessment [...] 03/28/2024 Next Appt Details Provider Name:Laurie weiner, 12/26/2024 10:15:00 AM, [address] [place], [address], Insurance Providers Payer Name Payer Address Payer Phone Subscriber Number Group Number Insured Name Patient Relationship to Insured Coverage Start Date Coverage End Date Medicare National [facility] [address] [place] [address] [phone] [id number] Lenny Caruso Self - patient is the insured [address] [place] [address] [address] [place] [address] [id number] Lenny Caruso Self - patient is the insured Medical (General) History Medical History History ICD Code Covid 19 Heart Disease Measle Mumps Chicken Pox A fib ICD Device Surgical History Surgery Date(Month/Year) ICD Battery Replacement 2020
--- OUTSIDE RECORDS SUMMARY | 2024-12-06 10:26 | XMS_ITS | Encounter Summary ---
Author Organization [facility] Address [address] [place] [address] Phone Care Team Providers Care C++ Professor Name Role Phone Eduardo Rutledge MD Primary Care Provid er Encounter Details Date Type Department Care Team (Late st Contact Info) Description 11/26/2024 Orders Only [facility] Cardiovascular Medicine [address] [facility], 5th Floor, [address] [place] [address] Eduardo Rutledge MD [address] [place] [address] Social History Tobacco Use Types Packs/Day Years [...] st Contact Info) Description 07/09/2024 Procedure Pass [facility] Cardiology Division [address], [address] [place] [address] 08/16/2024 Procedure Pass [facility] Cardiology Division [address] [place] [facility], [address] [place] [address] 10/05/2024 Procedure Pass [facility] Cardiology Division [address] [place] [address] [facility] [address] [place] [address] 11/09/2024 Procedure Pass [facility] Cardiology Division [address] [facility], [address] [place] [address] 11/22/2024 Procedure Pass [facility] Cardiology Division [address] [facility], [address] [place] [address] 11/22/2024 Procedure Pass [facility] Cardiology Division [address] [facility] [address] [facility], [address] [place] [address] 11/26/2024 Procedure Pass [facility] Echo Lab [address] [place] [address] 12/05/2024 Procedure Pass [facility] Cardiology Division [address] [facility], [address] [place] [address] 12/05/2024 Procedure Pass [facility] Cardiology Division [address] [facility] [facility], [address] [place] [address] 12/22/2024 7:00 AM EST Appointment [facility] Cardiology Division [address] [facility] [address] [address] [facility], [address] [place] [address] Sumit Toledo MD, PhD [address] [place] [address] [address] [email or web address] 01/21/2025 7:00 AM EST Appointment [facility] Cardiology Division [address] [facility], [address] [place] [address] Sumit Toledo MD, PhD [address] [address] [email or web address] 02/21/2025 10:30 AM EST Appointment [facility] Cardiology Division [address] [facility], [address] [place] [address] Sumit Toledo MD, PhD [address] [place] [address] [email or web address] 05/20/2025 10:30 AM EDT Appointment [facility] Echo Lab [address] [place] [address] Tal Stanley MD [address] [address] [email or web address] 07/12/2025 9:00 AM EDT Appointment [facility] Cardiac EP [address] [facility], 5th Floor, [address] [place] [address] Sumit Toledo MD, PhD [address] [place] [address] [email or web address] 07/12/2025 9:30 AM EDT Office Visit [facility] Cardiac Arrhythmia Service [address] [facility], 5th Floor, [address] [place] [address] Lisa Mccarthy NP [address] [address] [email or web address] 07/12/2025 11:00 AM EDT Office Visit [facility] Heart Failure & Transplantation [address] [facility], 5th Floor, [address] [place] [address] Tal Stanley MD [address] [facility] [address] [place] [address] [email or web address] documented as of this encounter Visit Diagnoses Not on filedocumented in this encounter Care Teams C++ Professor Relationship Specialty Start Date End Date Eduardo Rutledge MD [address] [place] [address] PCP - General Internal Medicine 06/19/18 documented as of this encounter Additional Source Comments The information contained in this document represents components of the legal health record. It is not the complete legal health record.[facility]
--- OUTSIDE RECORDS SUMMARY | 2024-12-06 10:26 | XMS_ITS | Encounter Summary ---
Author Organization [facility] Address [facility] [address] [place] [address] Phone Care Team Providers Care Honey Blender Name Role Phone Eduardo Rutledge MD Primary Care Provid er Encounter Details Date Type Department Care Team (Late st Contact Info) Description 03/11/[address] [facility] [place] [address] [facility], [address] [place] [address] Social History Tobacco Use Types Packs/Day Years [...] [facility] [address] [facility], [address] [place] [address] 08/16/[address] [facility]iology [facility] [address] [address], [address] [place] [address] 10/05/[address] [facility]iology Division [address] [facility], [address] [place] [address] 11/09/[address] [facility]iology Division [address] [facility], [address] [place] [address] 11/22/[address] [facility]iology Division [address] [facility], [address] [place] [address] 11/22/[address] [facility]iology Division [address] [facility] [address], [address] [place] [address] 11/26/[address] [facility] Echo Lab [address] [place] [address] 12/05/[address] [facility]iology Division [address] [facility], [address] [place] [address] 12/05/[address] [facility]iology Division [address] [facility] [address], [address] [place] [address] 12/22/2024 7:[address] [facility]iology [facility] [address] [facility] [facility], [address] [place] [address] Sumit Toledo MD, PhD [address] [place] [address] [email or web address] 01/21/2025 7:[address] [facility]iology [facility] [address] [facility] [address], [address] [place] [address] Sumit Toledo MD, PhD [address] [place], [place] [address] [address] [email or web address] 02/21/2025 10:[address] [facility] [address] [facility], [address] [place] [address] Sumit Toledo MD, PhD [address] [facility] [place] [address] [email or web address] 05/20/2025 10:30 AM EDT Appointment [facility] Echo Lab [address] [place] [address] Tal Stanley MD [address] [address] [email or web address] 07/12/2025 9:[address] [facility] Cardiac EP [address] [facility], 5th Floor, [address] [place] [address] Sumit Toledo MD, PhD [address] [place], [place] [address] [address] [email or web address] 07/12/2025 9:30 AM EDT Office Visit [facility] Cardiac Arrhythmia Service [address] [facility], 5th Floor, [address] [place] [address] Lisa Mccarthy NP [address] [address] [email or web address] 07/12/2025 11:00 AM EDT Office Visit [facility] Heart Failure & Transplantation [address] [facility], 5th Floor, [address] [place] [address] Tal Stanley MD [address] [address] [email or web address] documented as of this encounter Visit Diagnoses Not on filedocumented in this encounter Additional Health Concerns Infection Onset Date Last Indicated Resolved Time CoV-Risk 02/10/2024 02/10/202402/2002/21/2024 1:22 AM EST RSV 02/10/2024 02/10/2024 02/17/2024 1:25 AM EST documented as of this encounter Care Teams Honey Blender Relationship Specialty Start Date End Date Eduardo Rutledge MD [address] [place] [address] PCP - General Internal Medicine 06/19/18 documented as of this encounter Additional Source Comments The information contained in this document represents components of the legal health record. It is not the complete legal health record.[facility]
--- OUTSIDE RECORDS SUMMARY | 2024-12-06 10:26 | XMS_ITS | Encounter Summary ---
Author Organization [facility] Address [facility] [address] [place] [address] Phone Care Team Providers Care Digital Account Executive Name Role Phone Eduardo Rutledge MD Primary Care Provid er Encounter Details Date Type Department Care Team (Late st Contact Info) Description 07/09/2024 Procedure Pass [facility] Cardiology Division [address] [facility], [address] [place] [address] Social History Tobacco Use Types Packs/Day Years [...] [place] [address] [address], [address] [place] [address] 08/16/2024 Procedure Pass [facility] Cardiology Division [address] [facility], [address] [place] [address] 10/05/2024 Procedure Pass [facility] Cardiology Division [address] [facility], [address] [place] [address] 11/09/2024 Procedure Pass [facility] Cardiology Division [address] [facility] [facility], [address] [place] [address] 11/22/2024 Procedure Pass [facility] Cardiology Division [address] [facility], [address] [place] [address] 11/22/2024 Procedure Pass [facility] Cardiology Division [address] [facility] [facility], [address] [place] [address] 11/26/2024 Procedure Pass [facility] Echo Lab [address] [place] [address] 12/05/2024 Procedure Pass [facility] Cardiology Division [address] [facility], [address] [place] [address] 12/05/2024 Procedure Pass [facility] Cardiology Division [address] [facility] [facility], [address] [place] [address] 12/22/2024 7:00 AM EST Appointment [facility] Cardiology Division [address] [facility], [address] [place] [address] Sumit Toledo MD, PhD [address] [place] [address] [email or web address] 01/21/2025 7:00 AM EST Appointment [facility] Cardiology Division [address] [facility], [address] [place] [address] Sumit Toledo MD, PhD [address] [facility] [place] [address] [email or web address] 02/21/2025 10:30 AM EST Appointment [facility] Cardiology Division 55 [facility], [address] [place] [address] Sumit Toledo MD, PhD [address] [facility] [place] [address] [email or web address] 05/20/2025 10:30 AM EDT Appointment [facility] Echo Lab [address] [place] [address] Tal Stanley MD [address] [address] [email or web address] 07/12/2025 9:00 AM EDT Appointment [facility] Cardiac EP 32 [facility], 5th Floor, [address] [place] [address] Sumit Toledo MD, PhD [address] [place] [address] [email or web address] 07/12/2025 9:30 AM EDT Office Visit [facility] Cardiac Arrhythmia Service 32 [facility], 5th Floor, [address] [place] [address] Lisa Mccarthy NP [address] [address] [email or web address] 07/12/2025 11:00 AM EDT Office Visit [facility] Heart Failure & Transplantation 32 [facility], 5th Floor, [address] [place] [address] Tal Stanley MD [address] [place] [address] [email or web address] documented as of this encounter Visit Diagnoses Not on filedocumented in this encounter Care Teams Digital Account Executive Relationship Specialty Start Date End Date Eduardo Rutledge MD [address] [place] [address] PCP - General Internal Medicine 06/19/18 documented as of this encounter Additional Source Comments The information contained in this document represents components of the legal health record. It is not the complete legal health record.[facility]
--- OUTSIDE RECORDS SUMMARY | 2024-12-06 10:26 | XMS_ITS | Encounter Summary ---
Author Organization [facility] Address [facility] [address] [place] [address] Phone Care Team Providers Care Diesel Motor Mechanic Name Role Phone Eduardo Rutledge MD Primary Care Provid er Encounter Details Date Type Department Care Team (Late st Contact Info) Description 04/11/2020 Procedure Pass [facility] Cardiology Division [address] [facility], [address] [place] [address] Social History Tobacco Use Types Packs/Day Years [...] st Contact Info) Description 07/09/2024 Procedure Pass [facility] Cardiology Division [address] [facility], [address] [place] [address] 08/16/2024 Procedure Pass [facility] Cardiology Division [address] [address], [address] [place] [address] 10/05/2024 Procedure Pass [facility] Cardiology Division [address], [address] [place] [address] 11/09/2024 Procedure Pass [facility] Cardiology Division [address], [address] [place] [address] 11/22/2024 Procedure Pass [facility] Cardiology Division [address], [address] [place] [address] 11/22/2024 Procedure Pass [facility] Cardiology Division [address] [address], [address] [place] [address] 11/26/2024 Procedure Pass [facility] Echo Lab [address] [place] [address] 12/05/2024 Procedure Pass [facility] Cardiology Division [address] [address], [address] [place] [address] 12/05/2024 Procedure Pass [facility] Cardiology Division [address] [address], [address] [place] [address] 12/22/2024 7:00 AM EST Appointment [facility] Cardiology Division [address] [address], [address] [place] [address] Sumit Toledo MD, PhD [address] [place] [address] [email or web address] 01/21/2025 7:00 AM EST Appointment [facility] Cardiology Division [address] [address], [address] [place] [address] Sumit Toledo MD, PhD [address] [place], [place] [address] [address] [email or web address] 02/21/2025 10:30 AM EST Appointment [facility] Cardiology Division [address] [address], [address] [place] [address] Sumit Toledo MD, PhD [address] [facility] [place] [address] [email or web address] 05/20/2025 10:30 AM EDT Appointment [facility] Echo Lab [address] [place] [address] Tal Stanley MD [address] [address] [email or web address] 07/12/2025 9:00 AM EDT Appointment [facility] Cardiac EP 32 [facility], 5th Floor, [address] [place] [address] Sumit Toledo MD, PhD [address] [place], [place] [address] [address] [email or web address] 07/12/2025 9:30 AM EDT Office Visit [facility] Cardiac Arrhythmia Service 32 [facility], 5th Floor, [address] [place] [address] Lisa Mccarthy NP [address] [address] [email or web address] 07/12/2025 11:00 AM EDT Office Visit [facility] Heart Failure & Transplantation 32 [facility], 5th Floor, [address] [place] [address] Tal Stanley MD [address] [address] [email or web address] documented as of this encounter Visit Diagnoses Not on filedocumented in this encounter Additional Health Concerns Infection Onset Date Last Indicated Resolved Time CoV-Risk 02/10/2024 02/10/202402/2002/21/2024 1:22 AM EST RSV 02/10/2024 02/10/2024 02/17/2024 1:25 AM EST documented as of this encounter Care Teams Diesel Motor Mechanic Relationship Specialty Start Date End Date Eduardo Rutledge MD [address] [place] [address] PCP - General Internal Medicine 06/19/18 documented as of this encounter Additional Source Comments The information contained in this document represents components of the legal health record. It is not the complete legal health record.[facility]
--- OUTSIDE RECORDS SUMMARY | 2024-12-06 10:26 | XMS_ITS | Encounter Summary ---
Author Organization [facility] Address [facility] [address] [place] [address] Phone Care Team Providers Care [employer] Pe Teacher Name Role Phone Eduardo Rutledge MD Primary Care Provid er Encounter Details Date Type Department Care Team (Late st Contact Info) Description 01/09/2020 Procedure Pass [facility] [address] [facility], [address] [place] [address] Social History Tobacco Use Types Packs/Day Years [...] st Contact Info) Description 07/09/2024 Procedure Pass [facility] [address] [facility], [address] [place] [address] 08/16/2024 Procedure Pass [facility] [address], [address] [place] [address] 10/05/2024 Procedure Pass [facility] [address] [facility], [address] [place] [address] 11/09/2024 Procedure Pass [facility] [address] [facility], [address] [place] [address] 11/22/2024 Procedure Pass [facility] [address] [facility], [address] [place] [address] 11/22/2024 Procedure Pass [facility] [address], [address] [place] [address] 11/26/2024 Procedure Pass [facility] Echo Lab [address] [place] [address] 12/05/2024 Procedure Pass [facility] [address], [address] [place] [address] 12/05/2024 Procedure Pass [facility] [address], [address] [place] [address] 12/22/2024 7:00 AM EST Appointment [facility] [address], [address] [place] [address] Sumit Toledo MD, PhD [address] [place] [address] [email or web address] 01/21/2025 7:00 AM EST Appointment [facility] [address], [address] [place] [address] Sumit Toledo MD, PhD [address] [place], [place] [address] [address] [email or web address] 02/21/2025 10:30 AM EST Appointment [facility] [address], [address] [place] [address] Sumit Toledo MD, PhD 55 [facility] [place] [address] [email or web address] 05/20/2025 10:30 AM EDT Appointment [facility] Echo Lab [address] [place] [address] Tal Stanley MD [address] [facility] [address] [email or web address] 07/12/2025 9:00 AM EDT Appointment [facility] Cardiac EP 32 [facility], 5th Floor, [address] [place] [address] Sumit Toledo MD, PhD [address] [place] [address] [email or web address] 07/12/2025 9:30 AM EDT Office Visit [facility] Cardiac Arrhythmia Service 32 [facility], 5th Floor, [address] [place] [address] Lisa Mccarthy NP [address] [address] [email or web address] 07/12/2025 11:00 AM EDT Office Visit [facility] Heart Failure & Transplantation 32 [facility], 5th Floor, [address] [place] [address] Tal Stanley MD [address] [address] [email or web address] documented as of this encounter Visit Diagnoses Not on filedocumented in this encounter Additional Health Concerns Infection Onset Date Last Indicated Resolved Time CoV-Risk 02/10/2024 02/10/202402/21/2024 1:22 AM EST RSV 02/10/2024 02/10/2024 02/17/2024 1:25 AM EST documented as of this encounter Care Teams [employer] Pe Teacher Relationship Specialty Start Date End Date Eduardo Rutledge MD [address] [place] [address] PCP - General Internal Medicine 06/19/18 documented as of this encounter Additional Source Comments The information contained in this document represents components of the legal health record. It is not the complete legal health record.[facility]
--- OUTSIDE RECORDS SUMMARY | 2024-12-06 10:26 | XMS_ITS | Encounter Summary ---
Author Organization [facility] Address [facility] [address] [place] [address] Phone Care Team Providers Care Wood Polisher Name Role Phone Eduardo Rutledge MD Primary Care Provid er Encounter Details Date Type Department Care Team (Late st Contact Info) Description 12/08/2022 Procedure Pass [facility] [place] [address] [place] [address], [address] [place] [address] Social History Tobacco Use Types Packs/Day Years [...] st Contact Info) Description 07/09/2024 Procedure Pass [facility] [address] [address], [address] [place] [address] 08/16/2024 Procedure Pass [facility] [address] [facility], [address] [place] [address] 10/05/2024 Procedure Pass [facility] [address], [address] [place] [address] 11/09/2024 Procedure Pass [facility]iology [facility] [address] [place] [facility], [address] [place] [address] 11/22/2024 Procedure Pass [facility] Cardiology Division [address] [place] [facility], [address] [place] [address] 11/22/2024 Procedure Pass [facility]iology Division [address] [place] [facility], [address] [place] [address] 11/26/2024 Procedure Pass [facility] Echo Lab 30 [place] [address] 12/05/2024 Procedure Pass [facility] Cardiology Division [address] [facility], [address] [place] [address] 12/05/2024 Procedure Pass [facility] Cardiology Division [address] [facility], [address] [place] [address] 12/22/2024 7:00 AM EST Appointment [facility] [address] [facility], [address] [place] [address] Sumit Toledo MD, PhD [address] [place] [phone] [email or web address] 01/21/2025 7:00 AM EST Appointment [facility] Cardiology Division [address] [facility], [address] [place] [address] Sumit Toledo MD, PhD 55 [facility]1109 [place] [address] [email or web address] 02/21/2025 10:30 AM EST Appointment [facility] 55 [facility], [address] [place] [address] Sumit Toledo MD, PhD [address] [facility] [place] [address] [email or web address] 05/20/2025 10:30 AM EDT Appointment [facility] Echo Lab [address] [place] [address] Tal Stanley MD [address] [address] [email or web address] 07/12/2025 9:00 AM EDT Appointment [facility] Cardiac EP 32 [facility], 5th Floor, [address] [place] [address] Sumit Toledo MD, PhD [address] [place] [phone] [email or web address] 07/12/2025 9:30 AM EDT Office Visit [facility] Cardiac Arrhythmia Service 32 [facility], 5th Floor, [address] [place] [address] Lisa Mccarthy NP [address] [address] [email or web address] 07/12/2025 11:00 AM EDT Office Visit [facility] Heart Failure & Transplantation 32 [facility], 5th Floor, [address] [place] [address] Tal Stanley MD [address] [place] [address] [email or web address] documented as of this encounter Visit Diagnoses Not on filedocumented in this encounter Additional Health Concerns Infection Onset Date Last Indicated Resolved Time CoV-Risk 02/10/2024 02/10/2024 02/21/2024 1:22 AM EST RSV 02/10/2024 02/10/2024 02/17/2024 1:25 AM EST documented as of this encounter Care Teams Wood Polisher Relationship Specialty Start Date End Date Eduardo Rutledge MD [address] [place] [address] PCP - General Internal Medicine 06/19/18 documented as of this encounter Additional Source Comments The information contained in this document represents components of the legal health record. It is not the complete legal health record.[facility]
--- OUTSIDE RECORDS SUMMARY | 2024-12-06 10:26 | XMS_ITS | Encounter Summary ---
Author Organization [facility] Address [facility] [address] [place] [address] Phone Care Team Providers Care Brush Clearing Laborer Name Role Phone Eduardo Rutledge MD Primary Care Provid er Encounter Details Date Type Department Care Team (Late st Contact Info) Description 06/26/2021 Procedure Pass [facility] [address] [facility], [address] [place] [address] Social History Tobacco Use Types Packs/Day Years [...] st Contact Info) Description 07/09/2024 Procedure Pass [facility] [address] [facility], [address] [place] [address] 08/16/2024 Procedure Pass [facility] [address], [address] [place] [address] 10/05/2024 Procedure Pass [facility] [address], [address] [place] [address] 11/09/2024 Procedure Pass [facility] [address], [address] [place] [address] 11/22/2024 Procedure Pass [facility] [address], [address] [place] [address] 11/22/2024 Procedure Pass [facility] [address], [address] [place] [address] 11/26/2024 Procedure Pass [facility] Echo Lab [address] [place] [address] 12/05/2024 Procedure Pass [facility] [address], [address] [place] [address] 12/05/2024 Procedure Pass [facility] [address], [address] [place] [address] 12/22/2024 7:00 AM EST Appointment [facility] [address], [address] [place] [address] Sumit Toledo MD, PhD [address] [place] [address] [email or web address] 01/21/2025 7:00 AM EST Appointment [facility] [address], [address] [place] [address] Sumit Toledo MD, PhD [address] [place], [place] [address] [address] [email or web address] 02/21/2025 10:30 AM EST Appointment [facility] [address], [address] [place] [address] Sumit Toledo MD, PhD 55 [facility]1109 [place] [address] [email or web address] 05/20/2025 10:30 AM EDT Appointment [facility] Echo Lab [address] [place] [address] Tal Stanley MD [address] [address] [email or web address] 07/12/2025 9:00 AM EDT Appointment [facility] Card[facility] EP 32 [facility], 5th Floor, [address] [place] [address] Sumit Toledo MD, PhD [address] [place], [place] [address] [address] [email or web address] 07/12/2025 9:30 AM EDT Office Visit [facility] Cardiac Arrhythmia Service 32 [facility], 5th Floor, [address] [place] [address] Lisa Mccarthy NP [address] [address] [email or web address] 07/12/2025 11:00 AM EDT Office Visit [facility] Heart Failure & Transplantation 32 [facility], 5th Floor, [address] [place] [address] Tal Stanley MD [address] [address] [email or web address] documented as of this encounter Visit Diagnoses Not on filedocumented in this encounter Additional Health Concerns Infection Onset Date Last Indicated Resolved Time CoV-Risk 02/10/2024 02/10/202402/2002/21/2024 1:22 AM EST RSV 02/10/2024 02/10/2024 02/17/2024 1:25 AM EST documented as of this encounter Care Teams Brush Clearing Laborer Relationship Specialty Start Date End Date Eduardo Rutledge MD [address] [place] [address] PCP - General Internal Medicine 06/19/18 documented as of this encounter Additional Source Comments The information contained in this document represents components of the legal health record. It is not the complete legal health record.[facility]
--- OUTSIDE RECORDS SUMMARY | 2024-12-06 10:26 | XMS_ITS | Encounter Summary ---
Author Organization [facility] Address [facility] [address] [place] [address] Phone Care Team Providers Care Curam Developer Name Role Phone Eduardo Rutledge MD Primary Care Provid er Encounter Details Date Type Department Care Team (Late st Contact Info) Description 04/10/2020 Procedure Pass [facility] Cardiology Division [address] [facility], [address] [place] [address] Social History Tobacco Use Types Packs/Day Years [...] st Contact Info) Description 07/09/2024 Procedure Pass [facility] Cardiology Division [address] [facility], [address] [place] [address] 08/16/2024 Procedure Pass [facility] Cardiology Division [address], [address] [place] [address] 10/05/2024 Procedure Pass [facility] Cardiology Division [address], [address] [place] [address] 11/09/2024 Procedure Pass [facility] Cardiology Division [address], [address] [place] [address] 11/22/2024 Procedure Pass [facility] Cardiology Division [address], [address] [place] [address] 11/22/2024 Procedure Pass [facility] Cardiology Division [address], [address] [place] [address] 11/26/2024 Procedure Pass [facility] Echo Lab 30 [place] [address] 12/05/2024 Procedure Pass [facility] Cardiology Division [address], [address] [place] [address] 12/05/2024 Procedure Pass [facility] Cardiology Division [address], [address] [place] [address] 12/22/2024 7:00 AM EST Appointment [facility] Cardiology Division [address], [address] [place] [address] Sumit Toledo MD, PhD [address] [place] [address] [email or web address] 01/21/2025 7:00 AM EST Appointment [facility] Cardiology Division [address], [address] [place] [address] Sumit Toledo MD, PhD [address] [place], [place] [address] [address] [email or web address] 02/21/2025 10:30 AM EST Appointment [facility] Cardiology Division [address], [address] [place] [address] Sumit Toledo MD, PhD 55 [facility]1109 [place] [address] [email or web address] 05/20/2025 10:30 AM EDT Appointment [facility] Echo Lab 30 [place] [address] Tal Stanley MD [address] [address] [email or web address] 07/12/2025 9:00 AM EDT Appointment [facility] Cardiac EP 32 [facility], 5th Floor, [address] [place] [address] Sumit Toledo MD, PhD [address] [place], [place] [address] [address] [email or web address] 07/12/2025 9:30 AM EDT Office Visit [facility] Cardiac Arrhythmia Service 32 [facility], 5th Floor, [address] [place] [address] Lisa Mccarthy NP [address] [address] [email or web address] 07/12/2025 11:00 AM EDT Office Visit [facility] Heart Failure & Transplantation 32 [facility], 5th Floor, [address] [place] [address] Tal Stanley MD [address] [address] [email or web address] documented as of this encounter Visit Diagnoses Not on filedocumented in this encounter Additional Health Concerns Infection Onset Date Last Indicated Resolved Time CoV-Risk 02/10/2024 02/10/202402/2002/21/2024 1:22 AM EST RSV 02/10/2024 02/10/2024 02/17/2024 1:25 AM EST documented as of this encounter Care Teams Curam Developer Relationship Specialty Start Date End Date Eduardo Rutledge MD [address] [place] [address] PCP - General Internal Medicine 06/19/18 documented as of this encounter Additional Source Comments The information contained in this document represents components of the legal health record. It is not the complete legal health record.[facility]
--- OUTSIDE RECORDS SUMMARY | 2024-12-06 10:26 | XMS_ITS | Encounter Summary ---
Author Organization [facility] Address [facility] [address] [place] [address] Phone Care Team Providers Care Box Inspector Name Role Phone Eduardo Rutledge MD Primary Care Provid er Encounter Details Date Type Department Care Team (Late st Contact Info) Description 06/10/2021 Procedure Pass [facility] [place] 32 [facility], 5th Floor, [address] [place] [address] Social History Tobacco Use Types Packs/Day Years [...] st Contact Info) Description 07/09/2024 Procedure Pass [facility] [place] [address] [facility], [address] [place] [address] 08/16/2024 Procedure Pass [facility] [place] [address] [address], [address] [place] [address] 10/05/2024 Procedure Pass [facility] [place] [address], [address] [place] [address] 11/09/2024 Procedure Pass [facility] [place] [address], [address] [place] [address] 11/22/2024 Procedure Pass [facility] [place] [address], [address] [place] [address] 11/22/2024 Procedure Pass [facility] [place] [address], [address] [place] [address] 11/26/2024 Procedure Pass [facility] Echo Lab [address] [place] [address] 12/05/2024 Procedure Pass [facility] [place] [address], [address] [place] [address] 12/05/2024 Procedure Pass [facility] [place] [address], [address] [place] [address] 12/22/2024 7:00 AM EST Appointment [facility] [address], [address] [place] [address] Sumit Toledo MD, PhD [address] [place] [address] [email or web address] 01/21/2025 7:00 AM EST Appointment [facility] [place] [address], [address] [place] [address] Sumit Toledo MD, PhD [address] [place], [place] [address] [address] [email or web address] 02/21/2025 10:30 AM EST Appointment [facility] [place] [address], [address] [place] [address] Sumit Toledo MD, PhD [address] [facility] [place] [address] [email or web address] 05/20/2025 10:30 AM EDT Appointment [facility] Echo Lab 30 [place] [address] Tal Stanley MD [address] [address] [email or web address] 07/12/2025 9:00 AM EDT Appointment [facility] [place] 32 [facility], 5th Floor, [address] [place] [address] Sumit Toledo MD, PhD [address] [place], [place] [address] [address] [email or web address] 07/12/2025 9:30 AM EDT Office Visit [facility] [place]hythmia Service 32 [facility], 5th Floor, [address] [place] [address] Lisa Mccarthy NP [address] [address] [email or web address] 07/12/2025 11:00 AM EDT Office Visit [facility] [place] Failure & Transplantation 32 [facility], 5th Floor, [address] [place] [address] Tal Stanley MD [address] [address] [email or web address] documented as of this encounter Visit Diagnoses Not on filedocumented in this encounter Additional Health Concerns Infection Onset Date Last Indicated Resolved Time CoV-Risk 02/10/2024 02/10/2024 02/21/2024 1:22 AM EST RSV 02/10/2024 02/10/2024 02/17/2024 1:25 AM EST documented as of this encounter Care Teams Box Inspector Relationship Specialty Start Date End Date Eduardo Rutledge MD [address] [place] [address] PCP - General Internal Medicine 06/19/18 documented as of this encounter Additional Source Comments The information contained in this document represents components of the legal health record. It is not the complete legal health record.[facility]
--- OUTSIDE RECORDS SUMMARY | 2024-12-06 10:26 | XMS_ITS | Encounter Summary ---
Author Organization [facility] Address [facility] [address] [place] [address] Phone Care Team Providers Care Employee Development Specialist Name Role Phone Eduardo Rutledge MD Primary Care Provid er Encounter Details Date Type Department Care Team (Late st Contact Info) Description 02/11/2020 Procedure Pass [facility] [address] [facility], [address] [place] [address] Social History Tobacco Use Types Packs/Day Years [...] Info) Description 07/09/2024 Procedure Pass [facility] [address], [address] [place] [address] 08/16/2024 Procedure Pass [facility] [address] [address], [address] [place] [address] 10/05/2024 Procedure Pass [facility] [address], [address] [place] [address] 11/09/2024 Procedure Pass [facility] [address], [address] [place] [address] 11/22/2024 Procedure Pass [facility] [address], [address] [place] [address] 11/22/2024 Procedure Pass [facility] [address] [address], [address] [place] [address] 11/26/2024 Procedure Pass [facility] Echo Lab [address] [place] [address] 12/05/2024 Procedure Pass [facility] [address] [address], [address] [place] [address] 12/05/2024 Procedure Pass [facility] [address] [address], [address] [place] [address] 12/22/2024 7:00 AM EST Appointment [facility] [address] [address], [address] [place] [address] Sumit Toledo MD, PhD [address] [place] [address] [email or web address] 01/21/2025 7:00 AM EST Appointment [facility] [address] [address], [address] [place] [address] Sumit Toledo MD, PhD [address] [place], [place] [address] [address] [email or web address] 02/21/2025 10:30 AM EST Appointment [facility] [address] [address], [address] [place] [address] Sumit Toledo MD, PhD 55 [facility]1109 [place] [address] [email or web address] 05/20/2025 10:30 AM EDT Appointment [facility] Echo Lab [address] [place] [address] Tal Stanley MD [address] [address] [email or web address] 07/12/2025 9:00 AM EDT Appointment [facility] Cardiac EP 32 [facility], 5th Floor, [address] [place] [address] Sumit Toledo MD, PhD [address] [place], [place] [address] [address] [email or web address] 07/12/2025 9:30 AM EDT Office Visit [facility] Cardiac Arrhythmia Service [address] [facility], 5th Floor, [address] [place] [address] Lisa Mccarthy NP [address] [address] [email or web address] 07/12/2025 11:00 AM EDT Office Visit [facility] Heart Failure & Transplantation [address] [facility], 5th Floor, [address] [place] [address] Tal Stanley MD [address] [address] [email or web address] documented as of this encounter Visit Diagnoses Not on filedocumented in this encounter Additional Health Concerns Infection Onset Date Last Indicated Resolved Time CoV-Risk 02/10/2024 02/10/202402/2002/21/2024 1:22 AM EST RSV 02/10/2024 02/10/2024 02/17/2024 1:25 AM EST documented as of this encounter Care Teams Employee Development Specialist Relationship Specialty Start Date End Date Eduardo Rutledge MD [address] [place] [address] PCP - General Internal Medicine 06/19/18 documented as of this encounter Additional Source Comments The information contained in this document represents components of the legal health record. It is not the complete legal health record.[facility]
--- OUTSIDE RECORDS SUMMARY | 2024-12-06 10:26 | XMS_ITS | Encounter Summary ---
Author Organization [facility] Address [facility] [address] [place] [address] Phone Care Team Providers Care Purchase Order Checker Name Role Phone Eduardo Rutledge MD Primary Care Provid er Encounter Details Date Type Department Care Team (Late st Contact Info) Description 11/09/2024 Procedure Pass [facility] Cardiology Division [address] [place] [address], [address] [place] [address] Social History Tobacco Use Types Packs/Day Years [...] st Contact Info) Description 07/09/2024 Procedure Pass [facility] Cardiology Division [address] [address], [address] [place] [address] 08/16/2024 Procedure Pass [facility] Cardiology Division [address], [address] [place] [address] 10/05/2024 Procedure Pass [facility] Cardiology Division [address], [address] [place] [address] 11/09/2024 Procedure Pass [facility] Cardiology Division [address], [address] [place] [address] 11/22/2024 Procedure Pass [facility] Cardiology Division [address] [facility], [address] [place] [address] 11/22/2024 Procedure Pass [facility] Cardiology Division [address], [address] [place] [address] 11/26/2024 Procedure Pass [facility] Echo Lab [address] [place] [address] 12/05/2024 Procedure Pass [facility] Cardiology Division [address], [address] [place] [address] 12/05/2024 Procedure Pass [facility] Cardiology Division [address], [address] [place] [address] 12/22/2024 7:00 AM EST Appointment [facility] Cardiology Division [address] [facility], [address] [place] [address] Sumit Toledo MD, PhD [address] [place] [address] [email or web address] 01/21/2025 7:00 AM EST Appointment [facility] Cardiology Division [address], [address] [place] [address] Sumit Toledo MD, PhD 55 [facility]1109 [place] [address] [email or web address] 02/21/2025 10:30 AM EST Appointment [facility] Cardiology Division 55 [facility], [address] [place] [address] Sumit Toledo MD, PhD 55 [facility] [place] [address] [email or web address] 05/20/2025 10:30 AM EDT Appointment [facility] Echo Lab [address] [place] [address] Tal Stanley MD [address] [address] [email or web address] 07/12/2025 9:00 AM EDT Appointment [facility] Cardiac EP [address] [facility], 5th Floor, [address] [place] [address] Sumit Toledo MD, PhD [address] [place] [address] [email or web address] 07/12/2025 9:30 AM EDT Office Visit [facility] Cardiac Arrhythmia Service [address] [facility], 5th Floor, [address] [place] [address] Lisa Mccarthy NP [address] [address] [email or web address] 07/12/2025 11:00 AM EDT Office Visit [facility] Heart Failure & Transplantation [address] [facility], 5th Floor, [address] [place] [address] Tal Stanley MD [address] [place] [address] [email or web address] documented as of this encounter Visit Diagnoses Not on filedocumented in this encounter Care Teams Purchase Order Checker Relationship Specialty Start Date End Date Eduardo Rutledge MD [address] [place] [address] PCP - General Internal Medicine 06/19/18 documented as of this encounter Additional Source Comments The information contained in this document represents components of the legal health record. It is not the complete legal health record.[facility]
--- OUTSIDE RECORDS SUMMARY | 2024-12-06 10:26 | XMS_ITS | Encounter Summary ---
Author Organization [facility] Address [facility] [address] [place] [address] Phone Care Team Providers Care Developmental Mathematics Instructor Name Role Phone Eduardo Rutledge MD Primary Care Provid er Encounter Details Date Type Department Care Team (Late st Contact Info) Description 12/12/[address] [facility] Cardiology Division [address] [facility], [address] [place] [address] Social History Tobacco Use Types Packs/Day Years [...] Contact Info) Description 07/09/[address] [facility] Cardiology Division [address] [facility], [address] [place] [address] 08/16/[address] [facility] Cardiology Division [address] [address], [address] [place] [address] 10/05/[address] [facility] Cardiology Division [address], [address] [place] [address] 11/09/[address] [facility] Cardiology Division [address], [address] [place] [address] 11/22/[address] [facility] Cardiology Division [address], [address] [place] [address] 11/22/[address] [facility] Cardiology Division [address] [address], [address] [place] [address] 11/26/2024 Procedure Pass [facility] Echo Lab [address] [place] [address] 12/05/[address] [facility] Cardiology Division [address] [address], [address] [place] [address] 12/05/[address] [facility] Cardiology Division [address] [address], [address] [place] [address] 12/22/2024 7:[address] [facility] Cardiology Division [address] [address], [address] [place] [address] Sumit Toledo MD, PhD [address] [place] [address] [email or web address] 01/21/2025 7:[address] [facility] Cardiology Division [address] [address], [address] [place] [address] Sumit Toledo MD, PhD [address] [place], [place] [address] [address] [email or web address] 02/21/2025 10:[address] [facility] Cardiology Division [address] [address], [address] [place] [address] Sumit Toledo MD, PhD 55 [facility]1109 [place] [address] [email or web address] 05/20/2025 10:30 AM EDT Appointment [facility] Echo Lab [address] [place] [address] Tal Stanley MD [address] [facility] [address] [email or web address] 07/12/2025 9:[address] [facility] Cardiac EP 32 [facility], 5th Floor, [address] [place] [address] Sumit Toledo MD, PhD [address] [place] [address] [email or web address] 07/12/2025 9:30 AM EDT Office Visit [facility] Cardiac Arrhythmia Service 32 [facility], 5th Floor, [address] [place] [address] Lisa Mccarthy NP [address] [address] [email or web address] 07/12/2025 11:00 AM EDT Office Visit [facility] Heart Failure & Transplantation 32 [facility], 5th Floor, [address] [place] [address] Tal Stanley MD [address] [address] [email or web address] documented as of this encounter Visit Diagnoses Not on filedocumented in this encounter Additional Health Concerns Infection Onset Date Last Indicated Resolved Time CoV-Risk 02/10/2024 02/10/202402/21/2024 1:22 AM EST RSV 02/10/2024 02/10/2024 02/17/2024 1:25 AM EST documented as of this encounter Care Teams Developmental Mathematics Instructor Relationship Specialty Start Date End Date Eduardo Rutledge MD [address] [place] [address] PCP - General Internal Medicine 06/19/18 documented as of this encounter Additional Source Comments The information contained in this document represents components of the legal health record. It is not the complete legal health record.[facility]
--- OUTSIDE RECORDS SUMMARY | 2024-12-06 10:27 | XMS_ITS | Encounter Summary ---
Author Organization [facility] Address [facility] [address] [place] [address] Phone Care Team Providers Care Hardware Technician Name Role Phone Eduardo Rutledge MD Primary Care Provid er Encounter Details Date Type Department Care Team (Late st Contact Info) Description 06/10/2022 Procedure Pass [facility] [address] [facility], [address] [place] [address] Social History Tobacco Use Types Packs/Day Years [...] st Contact Info) Description 07/09/2024 Procedure Pass [facility] [address] [address], [address] [place] [address] 08/16/2024 Procedure Pass [facility] [address] [address], [address] [place] [address] 10/05/2024 Procedure Pass [facility] [address], [address] [place] [address] 11/09/2024 Procedure Pass [facility] [address] [address], [address] [place] [address] 11/22/2024 Procedure Pass [facility] [address], [address] [place] [address] 11/22/2024 Procedure Pass [facility] [address] [address], [address] [place] [address] 11/26/2024 Procedure Pass [facility] Echo Lab [address] [place] [address] 12/05/2024 Procedure Pass [facility] [address] [address], [address] [place] [address] 12/05/2024 Procedure Pass [facility] [address], [address] [place] [address] 12/22/2024 7:00 AM EST Appointment [facility] [address] [address], [address] [place] [address] Sumit Toledo MD, PhD [address] [place], [place] [address] [place] [address] [email or web address] 01/21/2025 7:00 AM EST Appointment [facility] Cardiology Division [address] [address], [address] [place] [address] Sumit Toledo MD, PhD [address] [place] [address]-[address]109 [place] [address] [email or web address] 02/21/2025 10:30 AM EST Appointment [facility] 55 [facility], [address] [place] [address] Sumit Toledo MD, PhD 55 [facility]-1[address]109 [place] [address] [email or web address] 05/20/2025 10:30 AM EDT Appointment [facility] Echo Lab [address] [place] [address] Tal Stanley MD [address] [address] [email or web address] 07/12/2025 9:00 AM EDT Appointment [facility] Cardiac EP 32 [facility], 5th Floor, [address] [place] [address] Sumit Toledo MD, PhD [address] [place], [place] [address] [place] [address] [email or web address] 07/12/2025 9:30 AM EDT Office Visit [facility] Cardiac Arrhythmia Service 32 [facility], 5th Floor, [address] [place] [address] Lisa Mccarthy NP [address] [address] [email or web address] 07/12/2025 11:00 AM EDT Office Visit [facility] Heart Failure & Transplantation 32 [facility], 5th Floor, [address] [place] [address] Tal Stanley MD [address] [address] [email or web address] documented as of this encounter Visit Diagnoses Not on filedocumented in this encounter Additional Health Concerns Infection Onset Date Last Indicated Resolved Time CoV-Risk 02/10/2024 02/10/2024 02/21/2024 1:22 AM EST RSV 02/10/2024 02/10/2024 02/17/2024 1:25 AM EST documented as of this encounter Care Teams Hardware Technician Relationship Specialty Start Date End Date Eduardo Rutledge MD [address] [place] [address] PCP - General Internal Medicine 06/19/18 documented as of this encounter Additional Source Comments The information contained in this document represents components of the legal health record. It is not the complete legal health record.[facility]
--- OUTSIDE RECORDS SUMMARY | 2024-12-06 10:27 | XMS_ITS | Encounter Summary ---
Author Organization [facility] Address [facility] [address] [place] [address] Phone Care Team Providers Care Director Part Name Role Phone Eduardo Rutledge MD Primary Care Provid er Encounter Details Date Type Department Care Team (Late st Contact Info) Description 05/08/2024 Procedure Pass [facility] Cardiology Division [address] [facility], [address] [place] [address] Social History Tobacco Use Types Packs/Day Years [...] Contact Info) Description 07/09/2024 Procedure Pass [facility] Cardiology Division [address] [address], [address] [place] [address] 08/16/2024 Procedure Pass [facility] Cardiology Division [address], [address] [place] [address] 10/05/2024 Procedure Pass [facility] Cardiology Division [address], [address] [place] [address] 11/09/2024 Procedure Pass [facility] Cardiology Division [address] [address], [address] [place] [address] 11/22/2024 Procedure Pass [facility] Cardiology Division [address], [address] [place] [address] 11/22/2024 Procedure Pass [facility] Cardiology Division [address] [address], [address] [place] [address] 11/26/2024 Procedure Pass [facility] Echo Lab [address] [place] [address] 12/05/2024 Procedure Pass [facility] Cardiology Division [address], [address] [place] [address] 12/05/2024 Procedure Pass [facility] Cardiology Division [address] [address], [address] [place] [address] 12/22/2024 7:00 AM EST Appointment [facility] Cardiology Division [address], [address] [place] [address] Sumit Toledo MD, PhD [address] [place] [address] [email or web address] 01/21/2025 7:00 AM EST Appointment [facility] Cardiology Division [address], [address] [place] [address] Sumit Toledo MD, PhD 55 [facility]1109 [place] [address] [email or web address] 02/21/2025 10:30 AM EST Appointment [facility] Cardiology Division 55 [facility], [address] [place] [address] Sumit Toledo MD, PhD 55 [facility] [place] [address] [email or web address] 05/20/2025 10:30 AM EDT Appointment [facility] Echo Lab [address] [place] [address] Tal Stanley MD [address] [address] [email or web address] 07/12/2025 9:00 AM EDT Appointment [facility] Cardiac EP 32 [facility], 5th Floor, [address] [place] [address] Sumit Toledo MD, PhD [address] [place] [address] [email or web address] 07/12/2025 9:30 AM EDT Office Visit [facility] Cardiac Arrhythmia Service 32 [facility], 5th Floor, [address] [place] [address] Lisa Mccarthy NP [address] [address] [email or web address] 07/12/2025 11:00 AM EDT Office Visit [facility] Heart Failure & Transplantation 32 [facility], 5th Floor, [address] [place] [address] Tal Stanley MD [address] [place] [address] [email or web address] documented as of this encounter Visit Diagnoses Not on filedocumented in this encounter Care Teams Director Part Relationship Specialty Start Date End Date Eduardo Rutledge MD [address] [place] [address] PCP - General Internal Medicine 06/19/18 documented as of this encounter Additional Source Comments The information contained in this document represents components of the legal health record. It is not the complete legal health record.[facility]
--- OUTSIDE RECORDS SUMMARY | 2024-12-06 10:27 | XMS_ITS | Encounter Summary ---
Author Organization [facility] Address [facility] [address] [place] [address] Phone Care Team Providers Care Grader Operator Name Role Phone Mercedes Melgar MD Primary Care Provider Eduardo Rutledge MD Primary Care Provid er Encounter Details Date Type Department Care Team (Late st Contact Info) Description 03/02/2017 Ancillary Orders [facility] Cardiology Division [address] [place] [address], [address] [place] [address] Sumit Toledo MD, PhD [address] [place] [address]-[address] [place] [address] [email or web address] Cardiac arrhythmia, unspecified cardiac arrhythmia type Social [...] st Contact Info) Description 07/09/2024 Procedure Pass [facility] Cardiology Division [address] [address], [address] [place] [address] 08/16/2024 Procedure Pass [facility] Cardiology Division [address] [place] [facility], [address] [place] [address] 10/05/2024 Procedure Pass [facility] Cardiology Division [address] [address], [address] [place] [address] 11/09/2024 Procedure Pass [facility] Cardiology Division [address] [address], [address] [place] [address] 11/22/2024 Procedure Pass [facility] Cardiology Division [address] [facility], [address] [place] [address] 11/22/2024 Procedure Pass [facility] Cardiology Division [address] [address], [address] [place] [address] 11/26/2024 Procedure Pass [facility] Echo Lab [address] [place] [address] 12/05/2024 Procedure Pass [facility] Cardiology Division [address] [facility], [address] [place] [address] 12/05/2024 Procedure Pass [facility] Cardiology Division [address] [facility], [address] [place] [address] 12/22/2024 7:00 AM EST Appointment [facility] Cardiology Division [address] [place] [facility], [address] [place] [address] Sumit Toledo MD, PhD [address] [place] [address] [email or web address] 01/21/2025 7:00 AM EST Appointment [facility] Cardiology Division [address] [place] [facility], [address] [place] [address] Sumit Toledo MD, PhD 55 [facility]1109 [place] [address] [email or web address] 02/21/2025 10:30 AM EST Appointment [facility] Cardiology Division 55 [facility], [address] [place] [address] Sumit Toledo MD, PhD [address] [facility] [address] [email or web address] 05/20/2025 10:30 AM EDT Appointment [facility] Echo Lab [address] [place] [address] Tal Stanley MD [address] [place] [address] [email or web address] 07/12/2025 9:00 AM EDT Appointment [facility] Cardiac EP 32 [facility], 5th Floor, [address] [place] [address] Sumit Toledo MD, PhD [address] [place] [address] [email or web address] 07/12/2025 9:30 AM EDT Office Visit [facility] Cardiac Arrhythmia Service 32 [facility], 5th Floor, [address] [place] [address] Lisa Mccarthy NP [address] [address] [email or web address] 07/12/2025 11:00 AM EDT Office Visit [facility] Heart Failure & Transplantation 32 [facility], 5th Floor, [address] [place] [address] Tal Stanley MD [address] [place] [address] [email or web address] documented as of this encounter Visit Diagnoses Diagnosis Cardiac arrhythmia, unspecified cardiac arrhythmia type documented in this encounter Additional Health Concerns Infection Onset Date Last Indicated Resolved Time CoV-Risk 02/10/2024 02/10/2024 02/21/2024 1:22 AM EST RSV 02/10/2024 02/10/2024 02/17/2024 1:25 AM EST documented as of this encounter Care Teams Grader Operator Relationship Specialty Start Date End Date Mercedes Melgar MD [address] [place] [address] PCP - General Pulmonary Disease 02/28/17 06/18/18 Eduardo Rutledge MD [address] [place] [address] PCP - General Internal Medicine 06/19/18 documented as of this encounter Additional Source Comments The information contained in this document represents components of the legal health record. It is not the complete legal health record.[facility]
--- OUTSIDE RECORDS SUMMARY | 2024-12-06 10:27 | XMS_ITS | Encounter Summary ---
Author Organization [facility] Address [facility] [address] [place] [address] Phone Care Team Providers Care Scale Model Maker Name Role Phone Eduardo Rutledge MD Primary Care Provid er Encounter Details Date Type Department Care Team (Late st Contact Info) Description 09/07/2023 Procedure Pass [facility] Cardiology Division [address] [place] [address], [address] [place] [address] Social History Tobacco Use Types Packs/Day Years [...] st Contact Info) Description 07/09/2024 Procedure Pass [facility] Cardiology Division [address] [address], [address] [place] [address] 08/16/2024 Procedure Pass [facility] Cardiology Division [address] [address], [address] [place] [address] 10/05/2024 Procedure Pass [facility] Cardiology Division [address] [address], [address] [place] [address] 11/09/2024 Procedure Pass [facility] Cardiology Division [address] [facility], [address] [place] [address] 11/22/2024 Procedure Pass [facility] Cardiology Division [address] [facility], [address] [place] [address] 11/22/2024 Procedure Pass [facility] Cardiology Division [address] [address], [address] [place] [address] 11/26/2024 Procedure Pass [facility] Echo Lab 30 [place] [address] 12/05/2024 Procedure Pass [facility] Cardiology Division [address] [address], [address] [place] [address] 12/05/2024 Procedure Pass [facility] Cardiology Division [address] [address], [address] [place] [address] 12/22/2024 7:00 AM EST Appointment [facility] Cardiology Division [address] [address], [address] [place] [address] Sumit Toledo MD, PhD [address] [place] [address] [email or web address] 01/21/2025 7:00 AM EST Appointment [facility] Cardiology Division [address] [address], [address] [place] [address] Sumit Toledo MD, PhD 55 [facility]1109 [place] [address] [email or web address] 02/21/2025 10:30 AM EST Appointment [facility] Cardiology Division 55 [facility], [address] [place] [address] Sumit Toledo MD, PhD 55 [facility] [place] [address] [email or web address] 05/20/2025 10:30 AM EDT Appointment [facility] Echo Lab 30 [place] [address] Tal Stanley MD [address] [address] [email or web address] 07/12/2025 9:00 AM EDT Appointment [facility] Cardiac EP 32 [facility], 5th Floor, [address] [place] [address] Sumit Toledo MD, PhD [address] [place] [address] [email or web address] 07/12/2025 9:30 AM EDT Office Visit [facility] Cardiac Arrhythmia Service 32 [facility], 5th Floor, [address] [place] [address] Lisa Mccarthy NP [address] [address] [email or web address] 07/12/2025 11:00 AM EDT Office Visit [facility] Heart Failure & Transplantation 32 [facility], 5th Floor, [address] [place] [address] Tal Stanley MD [address] [place] [address] [email or web address] documented as of this encounter Visit Diagnoses Not on filedocumented in this encounter Additional Health Concerns Infection Onset Date Last Indicated Resolved Time CoV-Risk 02/10/2024 02/10/2024 02/21/2024 1:22 AM EST RSV 02/10/2024 02/10/2024 02/17/2024 1:25 AM EST documented as of this encounter Care Teams Scale Model Maker Relationship Specialty Start Date End Date Eduardo Rutledge MD [address] [place] [address] PCP - General Internal Medicine 06/19/18 documented as of this encounter Additional Source Comments The information contained in this document represents components of the legal health record. It is not the complete legal health record.[facility]
--- OUTSIDE RECORDS SUMMARY | 2024-12-06 10:27 | XMS_ITS | Encounter Summary ---
Author Organization [facility] Address [facility] [address] [place] [address] Phone Care Team Providers Care Budget Director Name Role Phone Eduardo Rutledge MD Primary Care Provid er Encounter Details Date Type Department Care Team (Late st Contact Info) Description 06/27/2020 Procedure Pass [facility] Cardiology Division 55 [facility], [address] [place] [address] Social History Tobacco Use Types Packs/Day Years [...] [facility] [place] [facility] 55 [facility], [address] [place] [address] 08/16/2024 Procedure Pass [facility] Cardiology Division [address] [address], [address] [place] [address] 10/05/2024 Procedure Pass [facility] Cardiology Division [address] [address], [address] [place] [address] 11/09/2024 Procedure Pass [facility] Cardiology Division [address] [address], [address] [place] [address] 11/22/2024 Procedure Pass [facility] Cardiology Division [address] [address], [address] [place] [address] 11/22/2024 Procedure Pass [facility] Cardiology Division [address] [address], [address] [place] [address] 11/26/2024 Procedure Pass [facility] Echo Lab [address] [place] [address] 12/05/2024 Procedure Pass [facility] Cardiology Division [address] [address], [address] [place] [address] 12/05/2024 Procedure Pass [facility] Cardiology Division [address] [address], [address] [place] [address] 12/22/2024 7:00 AM EST Appointment [facility] Cardiology Division [address] [address], [address] [place] [address] Sumit Toledo MD, PhD [address] [place] [address] [email or web address] 01/21/2025 7:00 AM EST Appointment [facility] Cardiology Division [address] [address], [address] [place] [address] Sumit Toledo MD, PhD [address] [place], [place] [address] [address] [email or web address]@[email or web address] 02/21/2025 10:30 AM EST Appointment [facility] Cardiology Division [address] [address], [address] [place] [address] Sumit Toledo MD, PhD 55 [facility]1109 [place] [address] [email or web address] 05/20/2025 10:30 AM EDT Appointment [facility] Echo Lab [address] [place] [address] Tal Stanley MD [address] [address] [email or web address] 07/12/2025 9:00 AM EDT Appointment [facility] Cardiac EP 32 [facility], 5th Floor, [address] [place] [address] Sumit Toledo MD, PhD [address] [place], [place] [address] [address] [email or web address] 07/12/2025 9:30 AM EDT Office Visit [facility] Cardiac Arrhythmia Service 32 [facility], 5th Floor, [address] [place] [address] Lisa Mccarthy NP [address] [address] [email or web address] 07/12/2025 11:00 AM EDT Office Visit [facility] Heart Failure & Transplantation 32 [facility], 5th Floor, [address] [place] [address] Tal Stanley MD [address] [address] [email or web address] documented as of this encounter Visit Diagnoses Not on filedocumented in this encounter Additional Health Concerns Infection Onset Date Last Indicated Resolved Time CoV-Risk 02/10/2024 02/10/202402/2002/21/2024 1:22 AM EST RSV 02/10/2024 02/10/2024 02/17/2024 1:25 AM EST documented as of this encounter Care Teams Budget Director Relationship Specialty Start Date End Date Eduardo Rutledge MD [address] [place] [address] PCP - General Internal Medicine 06/19/18 documented as of this encounter Additional Source Comments The information contained in this document represents components of the legal health record. It is not the complete legal health record.[facility]
--- OUTSIDE RECORDS SUMMARY | 2024-12-06 10:27 | XMS_ITS | Encounter Summary ---
Author Organization [facility] Address [facility] [address] [place] [address] Phone Care Team Providers Care Fabricator Assembler Metal Products Name Role Phone Eduardo Rutledge MD Primary Care Provid er Encounter Details Date Type Department Care Team (Late st Contact Info) Description 10/06/2018 Ancillary Orders [facility] Cardiology Division [address] [place] [address], [address] [place] [address] Sumit Toledo MD, PhD [address] [place] [address]-[address] [place] [address] [email or web address] Cardiac arrhythmia, unspecified cardiac arrhythmia type [...] Contact Info) Description 07/09/2024 Procedure Pass [facility] Cardiology Division [address] [address], [address] [place] [address] 08/16/2024 Procedure Pass [facility] Cardiology Division [address] [address], [address] [place] [address] 10/05/2024 Procedure Pass [facility] Cardiology Division [address] [address], [address] [place] [address] 11/09/2024 Procedure Pass [facility] Cardiology Division [address] [address], [address] [place] [address] 11/22/2024 Procedure Pass [facility] Cardiology Division [address] [address], [address] [place] [address] 11/22/2024 Procedure Pass [facility] Cardiology Division [address] [address], [address] [place] [address] 11/26/2024 Procedure Pass [facility] Echo Lab [address] [place] [address] 12/05/2024 Procedure Pass [facility] Cardiology Division [address] [address], [address] [place] [address] 12/05/2024 Procedure Pass [facility] Cardiology Division [address] [address], [address] [place] [address] 12/22/2024 7:00 AM EST Appointment [facility] Cardiology Division [address] [address], [address] [place] [address] Sumit Toledo MD, PhD [address] [place], [place] [address] [place] [address] [email or web address] 01/21/2025 7:00 AM EST Appointment [facility] Cardiology Division [address] [address], [address] [place] [address] Sumit Toledo MD, PhD [address] [place], [place] [address] [place] [address] [email or web address] 02/21/2025 10:30 AM EST Appointment [facility] Cardiology Division 55 [facility], [address] [place] [address] Sumit Toledo MD, PhD 55 [facility] [place] [address] [email or web address] 05/20/2025 10:30 AM EDT Appointment [facility] Echo Lab [address] [place] [address] Tal Stanley MD [address] [address] [email or web address] 07/12/2025 9:00 AM EDT Appointment [facility] Cardiac EP 32 [facility], 5th Floor, [address] [place] [address] Sumit Toledo MD, PhD 55 [facility] [address] [email or web address] 07/12/2025 9:30 AM EDT Office Visit [facility] Cardiac Arrhythmia Service 32 [facility], 5th Floor, [address] [place] [address] Lisa Mccarthy NP [address] [address] [email or web address] 07/12/2025 11:00 AM EDT Office Visit [facility] Heart Failure & Transplantation 32 [facility], 5th Floor, [address] [place] [address] Tal Stanley MD [address] [address] [email or web address] documented as of this encounter Visit Diagnoses Diagnosis Cardiac arrhythmia, unspecified cardiac arrhythmia type documented in this encounter Additional Health Concerns Infection Onset Date Last Indicated Resolved Time CoV-Risk 02/10/2024 02/10/2024 02/21/2024 1:22 AM EST RSV 02/10/2024 02/10/2024 02/17/2024 1:25 AM EST documented as of this encounter Care Teams Fabricator Assembler [employer] Relationship Specialty Start Date End Date Eduardo Rutledge MD [address] [place] [address] PCP - General Internal Medicine 06/19/18 documented as of this encounter Additional Source Comments The information contained in this document represents components of the legal health record. It is not the complete legal health record.[facility]
--- OUTSIDE RECORDS SUMMARY | 2024-12-06 10:27 | XMS_ITS | Encounter Summary ---
Author Organization [facility] Address [facility] [address] [place] [address] Phone Care Team Providers Care Gps Field Data Collector Name Role Phone Eduardo Rutledge MD Primary Care Provid er Encounter Details Date Type Department Care Team (Late st Contact Info) Description 11/28/2019 Procedure Pass [facility] Cardiology Division 55 [facility], [address] [place] [address] Social History Tobacco Use Types Packs/Day Years [...] st Contact Info) Description 07/09/2024 Procedure Pass [facility] Cardiology Division 55 [facility], [address] [place] [address] 08/16/2024 Procedure Pass [facility] Cardiology Division [address] [address], [address] [place] [address] 10/05/2024 Procedure Pass [facility] Cardiology Division [address], [address] [place] [address] 11/09/2024 Procedure Pass [facility] Cardiology Division [address], [address] [place] [address] 11/22/2024 Procedure Pass [facility] Cardiology Division [address] [address], [address] [place] [address] 11/22/2024 Procedure Pass [facility] Cardiology Division [address] [address], [address] [place] [address] 11/26/2024 Procedure Pass [facility] Echo Lab [address] [place] [address] 12/05/2024 Procedure Pass [facility] Cardiology Division [address] [address], [address] [place] [address] 12/05/2024 Procedure Pass [facility] Cardiology Division [address] [address], [address] [place] [address] 12/22/2024 7:00 AM EST Appointment [facility] Cardiology Division [address] [address], [address] [place] [address] Sumit Toledo MD, PhD [address] [place] [address] [email or web address] 01/21/2025 7:00 AM EST Appointment [facility] Cardiology Division [address] [address], [address] [place] [address] Sumit Toledo MD, PhD [address] [place], [place] [address] [address] [email or web address] 02/21/2025 10:30 AM EST Appointment [facility] Cardiology Division [address] [address], [address] [place] [address] Sumit Toledo MD, PhD 55 [facility]1109 [place] [address] [email or web address] 05/20/2025 10:30 AM EDT Appointment [facility] Echo Lab [address] [place] [address] Tal Stanley MD 55 [facility] [address] [email or web address] 07/12/2025 9:00 AM EDT Appointment [facility] Cardiac EP 32 [facility], 5th Floor, [address] [place] [address] Sumit Toledo MD, PhD [address] [place] [address] [email or web address] 07/12/2025 9:30 AM EDT Office Visit [facility] Cardiac Arrhythmia Service 32 [facility], 5th Floor, [address] [place] [address] Lisa Mccarthy NP [address] [address] [email or web address] 07/12/2025 11:00 AM EDT Office Visit [facility] Heart Failure & Transplantation 32 [facility], 5th Floor, [address] [place] [address] Tal Stanley MD [address] [address] [email or web address] documented as of this encounter Visit Diagnoses Not on filedocumented in this encounter Additional Health Concerns Infection Onset Date Last Indicated Resolved Time CoV-Risk 02/10/2024 02/10/202402/21/2024 1:22 AM EST RSV 02/10/2024 02/10/2024 02/17/2024 1:25 AM EST documented as of this encounter Care Teams Gps Field Data Collector Relationship Specialty Start Date End Date Eduardo Rutledge MD [address] [place] [address] PCP - General Internal Medicine 06/19/18 documented as of this encounter Additional Source Comments The information contained in this document represents components of the legal health record. It is not the complete legal health record.[facility]
--- OUTSIDE RECORDS SUMMARY | 2024-12-06 10:27 | XMS_ITS | Encounter Summary ---
Author Organization [facility] Address [facility] [address] [place] [address] Phone Care Team Providers Care Radial Drill Press Set Up Operator Name Role Phone Eduardo Rutledge MD Primary Care Provid er Encounter Details Date Type Department Care Team (Late st Contact Info) Description 09/10/2020 Procedure Pass [facility] Cardiology Division [address] [facility], [address] [place] [address] Social History Tobacco Use Types Packs/Day Years [...] st Contact Info) Description 07/09/2024 Procedure Pass [facility] [address] [facility], [address] [place] [address] 08/16/2024 Procedure Pass [facility] Division [address] [facility], [address] [place] [address] 10/05/2024 Procedure Pass [facility] Division [address] [facility], [address] [place] [address] 11/09/2024 Procedure Pass [facility]iology Division [address] [facility], [address] [place] [address] 11/22/2024 Procedure Pass [facility] [address] [facility], [address] [place] [address] 11/22/2024 Procedure Pass [facility] Cardiology Division [address] [facility], [address] [place] [address] 11/26/2024 Procedure Pass [facility] Echo Lab 30 [place] [address] 12/05/2024 Procedure Pass [facility] [address] [facility], [address] [place] [address] 12/05/2024 Procedure Pass [facility] Cardiology Division [address] [facility], [address] [place] [address] 12/22/2024 7:00 AM EST Appointment [facility] Cardiology Division [address] [facility], [address] [place] [address] Sumit Toledo MD, PhD [address] [place] [address] [email or web address] 01/21/2025 7:00 AM EST Appointment [facility] Cardiology Division [address] [facility], [address] [place] [address] Sumit Toledo MD, PhD [address] [place], [place] [address] [address] [email or web address] 02/21/2025 10:30 AM EST Appointment [facility] [address] [facility], [address] [place] [address] Sumit Toledo MD, PhD 55 [facility]1109 [place] [address] [email or web address] 05/20/2025 10:30 AM EDT Appointment [facility] Echo Lab 30 [place] [address] Tal Stanley MD [address] [address] [email or web address] 07/12/2025 9:00 AM EDT Appointment [facility] Cardiac EP 32 [facility], 5th Floor, [address] [place] [address] Sumit Toledo MD, PhD [address] [place], [place] [address] [address] [email or web address] 07/12/2025 9:30 AM EDT Office Visit [facility] Cardiac Arrhythmia Service [address] [facility], 5th Floor, [address] [place] [address] Lisa Mccarthy NP [address] [address] [email or web address] 07/12/2025 11:00 AM EDT Office Visit [facility] Heart Failure & Transplantation 32 [facility], 5th Floor, [address] [place] [address] Tal Stanley MD [address] [address] [email or web address] documented as of this encounter Visit Diagnoses Not on filedocumented in this encounter Additional Health Concerns Infection Onset Date Last Indicated Resolved Time CoV-Risk 02/10/2024 02/10/202402/2002/21/2024 1:22 AM EST RSV 02/10/2024 02/10/2024 02/17/2024 1:25 AM EST documented as of this encounter Care Teams Radial Drill Press Set Up Operator Relationship Specialty Start Date End Date Eduardo Rutledge MD [address] [place] [address] PCP - General Internal Medicine 06/19/18 documented as of this encounter Additional Source Comments The information contained in this document represents components of the legal health record. It is not the complete legal health record.[facility]
--- OUTSIDE RECORDS SUMMARY | 2024-12-06 10:27 | XMS_ITS | Encounter Summary ---
Author Organization [facility] Address [facility] [address] [place] [address] Phone Care Team Providers Care Transport Company Manager Name Role Phone Eduardo Rutledge MD Primary Care Provid er Encounter Details Date Type Department Care Team (Late st Contact Info) Description 05/13/2020 Procedure Pass [facility] Cardiology Division 55 [facility], [address] [place] [address] Social History Tobacco Use Types Packs/Day Years [...] [facility] 55 [facility], [address] [place] [address] 08/16/2024 Procedure Pass [facility] Cardiology Division [address] [facility], [address] [place] [address] 10/05/2024 Procedure Pass [facility] Cardiology Division [address] [facility], [address] [place] [address] 11/09/2024 Procedure Pass [facility] Cardiology Division [address] [facility], [address] [place] [address] 11/22/2024 Procedure Pass [facility] Cardiology Division [address] [facility], [address] [place] [address] 11/22/2024 Procedure Pass [facility] Cardiology Division [address] [facility], [address] [place] [address] 11/26/2024 Procedure Pass [facility] Echo Lab 30 [place] [address] 12/05/2024 Procedure Pass [facility] Cardiology Division [address] [facility], [address] [place] [address] 12/05/2024 Procedure Pass [facility] Cardiology Division [address] [facility], [address] [place] [address] 12/22/2024 7:00 AM EST Appointment [facility] Cardiology Division [address] [facility], [address] [place] [address] Sumit Toledo MD, PhD [address] [place] [phone] [email or web address] 01/21/2025 7:00 AM EST Appointment [facility] Cardiology Division [address] [facility], [address] [place] [address] Sumit Toledo MD, PhD [address] [place], [place] [address] [address] [email or web address] 02/21/2025 10:30 AM EST Appointment [facility] Cardiology Division [address] [facility], [address] [place] [address] Sumit Toledo MD, PhD 55 [facility]1109 [place] [address] [email or web address] 05/20/2025 10:30 AM EDT Appointment [facility] Echo Lab 30 [place] [address] Tal Stanley MD [address] [address] [email or web address] 07/12/2025 9:00 AM EDT Appointment [facility] Cardiac EP 32 [facility], 5th Floor, [address] [place] [address] Sumit Toledo MD, PhD [address] [place], [place] [address] [address] [email or web address] 07/12/2025 9:30 AM EDT Office Visit [facility] Cardiac Arrhythmia Service 32 [facility], 5th Floor, [address] [place] [address] Lisa Mccarthy NP [address] [address] [email or web address] 07/12/2025 11:00 AM EDT Office Visit [facility] Heart Failure & Transplantation 32 [facility], 5th Floor, [address] [place] [address] Tal Stanley MD [address] [address] [email or web address] documented as of this encounter Visit Diagnoses Not on filedocumented in this encounter Additional Health Concerns Infection Onset Date Last Indicated Resolved Time CoV-Risk 02/10/2024 02/10/202402/2002/21/2024 1:22 AM EST RSV 02/10/2024 02/10/2024 02/17/2024 1:25 AM EST documented as of this encounter Care Teams Transport Company Manager Relationship Specialty Start Date End Date Eduardo Rutledge MD [address] [place] [address] PCP - General Internal Medicine 06/19/18 documented as of this encounter Additional Source Comments The information contained in this document represents components of the legal health record. It is not the complete legal health record.[facility]
--- OUTSIDE RECORDS SUMMARY | 2024-12-06 10:27 | XMS_ITS | Encounter Summary ---
Author Organization [facility] Address [facility] [address] [place] [address] Phone Care Team Providers Care Art History Professor Name Role Phone Eduardo Rutledge MD Primary Care Provid er Encounter Details Date Type Department Care Team (Late st Contact Info) Description 12/10/2020 Procedure Pass [facility] [address] [facility], [address] [place] [address] Social History Tobacco Use Types Packs/Day Years [...] [facility] [address] [facility], [address] [place] [address] 08/16/2024 Procedure Pass [facility] Division [address] [facility], [address] [place] [address] 10/05/2024 Procedure Pass [facility] Cardiology Division [address] [facility], [address] [place] [address] 11/09/2024 Procedure Pass [facility] Cardiology Division [address], [address] [place] [address] 11/22/2024 Procedure Pass [facility] Cardiology Division [address], [address] [place] [address] 11/22/2024 Procedure Pass [facility] Cardiology Division [address] [facility], [address] [place] [address] 11/26/2024 Procedure Pass [facility] Echo Lab 30 [place] [address] 12/05/2024 Procedure Pass [facility] Cardiology Division [address] [facility] [facility], [address] [place] [address] 12/05/2024 Procedure Pass [facility] Cardiology Division [address] [facility], [address] [place] [address] 12/22/2024 7:00 AM EST Appointment [facility] Cardiology Division [address] [facility], [address] [place] [address] Sumit Toledo MD, PhD [address] [place] [address] [email or web address] 01/21/2025 7:00 AM EST Appointment [facility] Cardiology Division [address] [facility], [address] [place] [address] Sumit Toledo MD, PhD [address] [place], [place] [address] [address] [email or web address] 02/21/2025 10:30 AM EST Appointment [facility] Cardiology Division [address] [facility], [address] [place] [address] Sumit Toledo MD, PhD 55 [facility]110[address] [place] [address] [email or web address] 05/20/2025 10:30 AM EDT Appointment [facility] Echo Lab 30 [place] [address] Tal Stanley MD [address] [address] [email or web address] 07/12/2025 9:00 AM EDT Appointment [facility] Cardiac EP 32 [facility], 5th Floor, [address] [place] [address] Sumit Toledo MD, PhD [address] [place], [place] [address] [address] [email or web address] 07/12/2025 9:30 AM EDT Office Visit [facility] Cardiac Arrhythmia Service 32 [facility], 5th Floor, [address] [place] [address] Lisa Mccarthy NP [address] [address] [email or web address] 07/12/2025 11:00 AM EDT Office Visit [facility] Heart Failure & Transplantation 32 [facility], 5th Floor, [address] [place] [address] Tal Stanley MD [address] [address] [email or web address] documented as of this encounter Visit Diagnoses Not on filedocumented in this encounter Additional Health Concerns Infection Onset Date Last Indicated Resolved Time CoV-Risk 02/10/2024 02/10/202402/2002/21/2024 1:22 AM EST RSV 02/10/2024 02/10/2024 02/17/2024 1:25 AM EST documented as of this encounter Care Teams Art History Professor Relationship Specialty Start Date End Date Eduardo Rutledge MD [address] [place] [address] PCP - General Internal Medicine 06/19/18 documented as of this encounter Additional Source Comments The information contained in this document represents components of the legal health record. It is not the complete legal health record.[facility]
--- OUTSIDE RECORDS SUMMARY | 2024-12-06 10:27 | XMS_ITS | Encounter Summary ---
Author Organization [facility] Address [facility] [employer] [facility] [address] [place] [address] Phone Care Team Providers Care Family Assistant Name Role Phone Eduardo Rutledge MD Primary Care Provid er Reason for Visit * Reason Comments Medication Refill Encounter Details Date Type Department Care Team (Late st Contact Info) Description 09/25/2022 Refill [facility] Cardiology Division [address] [place] [address], [address] [place] [address] Christ Ayon, DIONNE [address] [place] [address] [email or web address] Medication Refill Social History Tobacco Use Types [...] st Contact Info) Description 07/09/2024 Procedure Pass [facility] Cardiology Division [address] [facility], [address] [place] [address] 08/16/2024 Procedure Pass [facility] Cardiology Division [address], [address] [place] [address] 10/05/2024 Procedure Pass [facility] Cardiology Division [address] [place] [address] [address] [facility], [address] [place] [address] 11/09/2024 Procedure Pass [facility] Cardiology Division [address], [address] [place] [address] 11/22/2024 Procedure Pass [facility] Cardiology Division [address], [address] [place] [address] 11/22/2024 Procedure Pass [facility] Cardiology Division [address] [facility], [address] [place] [address] 11/26/2024 Procedure Pass [facility] Echo Lab [address] [place] [address] 12/05/2024 Procedure Pass [facility] Cardiology Division [address], [address] [place] [address] 12/05/2024 Procedure Pass [facility] Cardiology Division [address] [facility], [address] [place] [address] 12/22/2024 7:00 AM EST Appointment [facility] Cardiology Division [address] [facility], [address] [place] [address] Sumit Toledo MD, PhD [address] [place] [address] [email or web address] 01/21/2025 7:00 AM EST Appointment [facility] Cardiology Division 55 [facility], [address] [place] [address] Sumit Toledo MD, PhD [address] [place] [address] [email or web address] 02/21/2025 10:30 AM EST Appointment [facility] Cardiology Division 55 [facility], [address] [place] [address] Sumit Toledo MD, PhD [address] [place] [address] [email or web address] 05/20/2025 10:30 AM EDT Appointment [facility] Echo Lab 30 [place] [address] Tal Stanley MD [address] [address] [email or web address] 07/12/2025 9:00 AM EDT Appointment [facility] Cardiac EP 32 [facility], 5th Floor, [address] [place] [address] Sumit Toledo MD, PhD [address] [place] [address] [email or web address] 07/12/2025 9:30 AM EDT Office Visit [facility] Cardiac Arrhythmia Service 32 [facility], 5th Floor, [address] [place] [address] Lisa Mccarthy NP [address] [address] [email or web address] 07/12/2025 11:00 AM EDT Office Visit [facility] Heart Failure & Transplantation [address] [facility], 5th Floor, [address] [place] [address] Tal Stanley MD 55 [address] [facility] 5B [place] [address] [email or web address] documented as of this encounter Visit Diagnoses Diagnosis Persistent atrial fibrillation Atrial fibrillation documented in this encounter Additional Health Concerns Infection Onset Date Last Indicated Resolved Time CoV-Risk 02/10/2024 02/10/2024 02/21/2024 1:22 AM EST RSV 02/10/2024 02/10/2024 02/17/2024 1:25 AM EST documented as of this encounter Care Teams Family Assistant Relationship Specialty Start Date End Date Eduardo Rutledge MD [address] [place] [address] PCP - General Internal Medicine 06/19/18 documented as of this encounter Additional Source Comments The information contained in this document represents components of the legal health record. It is not the complete legal health record.[facility]
--- OUTSIDE RECORDS SUMMARY | 2024-12-06 10:27 | XMS_ITS | Encounter Summary ---
Author Organization [facility] Address [facility] [address] [place] [address] Phone Care Team Providers Care Portfolio Architect Name Role Phone Eduardo Rutledge MD Primary Care Provid er Encounter Details Date Type Department Care Team (Late st Contact Info) Description 05/17/2020 Procedure Pass [facility] Cardiac US 55 [place] [address] Social History Tobacco Use Types Packs/Day Years [...] Description 07/09/2024 Procedure Pass [facility] Cardiology Division 55 [facility], [address] [place] [address] 08/16/2024 Procedure Pass [facility] Cardiology Division 55 [facility], [address] [place] [address] 10/05/2024 Procedure Pass [facility] Cardiology Division [address] [facility] [facility], [address] [place] [address] 11/09/2024 Procedure Pass [facility] Cardiology Division [address] [facility], [address] [place] [address] 11/22/2024 Procedure Pass [facility] Cardiology Division [address] [facility], [address] [place] [address] 11/22/2024 Procedure Pass [facility] Cardiology Division [address] [facility], [address] [place] [address] 11/26/2024 Procedure Pass [facility] Echo Lab 30 [place] [address] 12/05/2024 Procedure Pass [facility] Cardiology Division [address] [facility], [address] [place] [address] 12/05/2024 Procedure Pass [facility] Cardiology Division [address], [address] [place] [address] 12/22/2024 7:00 AM EST Appointment [facility] Cardiology Division [address] [facility], [address] [place] [address] Sumit Toledo MD, PhD [address] [place] [phone] [email or web address] 01/21/2025 7:00 AM EST Appointment [facility] Cardiology Division [address], [address] [place] [address] Sumit Toledo MD, PhD [address] [place], [place] [address] [address] [email or web address] 02/21/2025 10:30 AM EST Appointment [facility] Cardiology Division [address] [facility], [address] [place] [address] Sumit Toledo MD, PhD [address] [address] [email or web address] 05/20/2025 10:30 AM EDT Appointment [facility] Echo Lab 30 [place] [address] Tal Stanley MD 55 [facility] [address] [email or web address] 07/12/2025 9:00 AM EDT Appointment [facility] Cardiac EP 32 [facility], 5th Floor, [address] [place] [address] Sumit Toledo MD, PhD [address] [place] [address] [email or web address] 07/12/2025 9:30 AM EDT Office Visit [facility] Cardiac Arrhythmia Service 32 [facility], 5th Floor, [address] [place] [address] Lisa Mccarthy NP [address] [address] [email or web address] 07/12/2025 11:00 AM EDT Office Visit [facility] Heart Failure & Transplantation 32 [facility], 5th Floor, [address] [place] [address] Tal Stanley MD [address] [address] [email or web address] documented as of this encounter Visit Diagnoses Not on filedocumented in this encounter Additional Health Concerns Infection Onset Date Last Indicated Resolved Time CoV-Risk 02/10/2024 02/10/2024 02/21/2024 1:22 AM EST RSV 02/10/2024 02/10/2024 02/17/2024 1:25 AM EST documented as of this encounter Care Teams Portfolio Architect Relationship Specialty Start Date End Date Eduardo Rutledge MD [address] [place] [address] PCP - General Internal Medicine 06/19/18 documented as of this encounter Additional Source Comments The information contained in this document represents components of the legal health record. It is not the complete legal health record.[facility]
--- OUTSIDE RECORDS SUMMARY | 2024-12-06 10:27 | XMS_ITS | Encounter Summary ---
Author Organization [facility] Address [facility] [address] [place] [address] Phone Care Team Providers Care Sorority Mother Name Role Phone Eduardo Rutledge MD Primary Care Provid er Encounter Details Date Type Department Care Team (Late st Contact Info) Description 05/22/2020 Procedure Pass [facility] EP 32 [facility], 5th Floor, [address] [place] [address] Social History Tobacco Use Types Packs/Day Years [...] [facility] Cardiology Division [address], [address] [place] [address] 08/16/2024 Procedure Pass [facility] [address] [address], [address] [place] [address] 10/05/2024 Procedure Pass [facility] [address], [address] [place] [address] 11/09/2024 Procedure Pass [facility] [address] [address], [address] [place] [address] 11/22/2024 Procedure Pass [facility] [address] [address], [address] [place] [address] 11/22/2024 Procedure Pass [facility] [address], [address] [place] [address] 11/26/2024 Procedure Pass [facility] Echo Lab 30 [place] [address] 12/05/2024 Procedure Pass [facility] [address] [address], [address] [place] [address] 12/05/2024 Procedure Pass [facility] [address], [address] [place] [address] 12/22/2024 7:00 AM EST Appointment [facility] Division [address] [address], [address] [place] [address] Sumit Toledo MD, PhD [address] [place] [address] [email or web address] 01/21/2025 7:00 AM EST Appointment [facility] [address], [address] [place] [address] Sumit Toledo MD, PhD [address] [place], [place] [address] [address] [email or web address] 02/21/2025 10:30 AM EST Appointment [facility] [address], [address] [place] [address] Sumit Toledo MD, PhD 55 [facility] [place] [address] [email or web address] 05/20/2025 10:30 AM EDT Appointment [facility] Echo Lab 30 [place] [address] Tal Stanley MD [address] [address] [email or web address] 07/12/2025 9:00 AM EDT Appointment [facility] Cardiac EP 32 [facility], 5th Floor, [address] [place] [address] Sumit Toledo MD, PhD [address] [place], [place] [address] [address] [email or web address] 07/12/2025 9:30 AM EDT Office Visit [facility] Cardiac Arrhythmia Service 32 [facility], 5th Floor, [address] [place] [address] Lisa Mccarthy NP [address] [address] [email or web address] 07/12/2025 11:00 AM EDT Office Visit [facility] Heart Failure & Transplantation 32 [facility], 5th Floor, [address] [place] [address] Tal Stanley MD [address] [address] [email or web address] documented as of this encounter Visit Diagnoses Not on filedocumented in this encounter Additional Health Concerns Infection Onset Date Last Indicated Resolved Time CoV-Risk 02/10/2024 02/10/2024 02/21/2024 1:22 AM EST RSV 02/10/2024 02/10/2024 02/17/2024 1:25 AM EST documented as of this encounter Care Teams Sorority Mother Relationship Specialty Start Date End Date dEuardo Rutledge MD [address] [place] [address] PCP - General Internal Medicine 06/19/18 documented as of this encounter Additional Source Comments The information contained in this document represents components of the legal health record. It is not the complete legal health record.[facility]
--- OUTSIDE RECORDS SUMMARY | 2024-12-06 10:27 | XMS_ITS | Encounter Summary ---
Author Organization [facility] Address [address] [place] [address] [place] [address] Phone Care Team Providers Care Floor Care Specialist Name Role Phone Valeriano Douglas MD Primary Care Provider [phone] Mercedes Melgar MD Primary Care Provider Eduardo Rutledge MD Primary Care Provid er Encounter Details Date Type Department Care Team (Latest Contact Info) Description 09/10/2016 Transcribe Orders [facility] Cardiology Division [address] [place] [address], [address] [place] [address] Sumit Toledo MD, PhD [address] [place], [place] [address]B[address] [place] [address] [email or web address] Cardiac arrhythmia, unspecified cardiac arrhythmia type (Primary [...] [facility] Division [address], [address] [place] [address] 08/16/2024 Procedure Pass [facility] Cardiology Division [address], [address] [place] [address] 10/05/2024 Procedure Pass [facility] Cardiology Division [address], [address] [place] [address] 11/09/2024 Procedure Pass [facility] Cardiology Division [address], [address] [place] [address] 11/22/2024 Procedure Pass [facility] Cardiology Division [address], [address] [place] [address] 11/22/2024 Procedure Pass [facility] Cardiology Division [address], [address] [place] [address] 11/26/2024 Procedure Pass [facility] Echo Lab 30 [place] [address] 12/05/2024 Procedure Pass [facility] Cardiology Division [address] [address], [address] [place] [address] 12/05/2024 Procedure Pass [facility] Cardiology Division [address], [address] [place] [address] 12/22/2024 7:00 AM EST Appointment [facility] Cardiology Division [address] [facility], [address] [place] [address] Sumit Toledo MD, PhD [address] [place] [address] [email or web address] 01/21/2025 7:00 AM EST Appointment [facility] Cardiology Division 55 [facility], [address] [place] [address] Sumit Toledo MD, PhD [address] [place] [address] [email or web address] 02/21/2025 10:30 AM EST Appointment [facility] Cardiology Division 55 [facility], [address] [place] [address] Sumit Toledo MD, PhD 55 [facility]1109 [place] [address] [email or web address] 05/20/2025 10:30 AM EDT Appointment [facility] Echo Lab 30 [place] [address] Tal Stanley MD [address] [address] [email or web address] 07/12/2025 9:00 AM EDT Appointment [facility] Cardiac EP 32 [facility], 5th Floor, [address] [place] [address] Sumit Toledo MD, PhD [address] [place] [address] [email or web address] 07/12/2025 9:30 AM EDT Office Visit [facility] Cardiac Arrhythmia Service 32 [facility], 5th Floor, [address] [place] [address] Lisa Mccarthy NP [address] [address] [email or web address] 07/12/2025 11:00 AM EDT Office Visit [facility] Heart Failure & Transplantation 32 [facility], 5th Floor, [address] [place] [address] Tal Stanley MD 55 [facility] [address] [place] [address] [email or web address] documented as of this encounter Visit Diagnoses Diagnosis Cardiac arrhythmia, unspecified cardiac arrhythmia type- Primary documented in this encounter Additional Health Concerns Infection Onset Date Last Indicated Resolved Time CoV-Risk 02/10/2024 02/10/2024 02/21/2024 1:22 AM EST RSV 02/10/2024 02/10/2024 02/17/2024 1:25 AM EST documented as of this encounter Care Teams Floor Care Specialist Relationship Specialty Start Date End Date Valeriano Douglas MD [address] [place] [address] PCP - General 08/07/13 02/27/17 Mercedes Melgar MD [address] [place] [address] PCP - General Pulmonary Disease 02/28/17 06/18/18 Eduardo Rutledge MD [address] [place] [address] PCP - General Internal Medicine 06/19/18 documented as of this encounter Additional Source Comments The information contained in this document represents components of the legal health record. It is not the complete legal health record.[facility]
--- OUTSIDE RECORDS SUMMARY | 2024-12-06 10:27 | XMS_ITS | Encounter Summary ---
Author Organization [facility] Address [facility] [address] [place] [address] Phone Care Team Providers Care Sanitary Landfill Operator Name Role Phone Eduardo Rutledge MD Primary Care Provid er Encounter Details Date Type Department Care Team (Late st Contact Info) Description 09/09/2022 Procedure Pass [facility] Cardiology Division [address] [facility], [address] [place] [address] Social History Tobacco Use Types Packs/Day Years [...] [facility] Cardiology Division [address] [address], [address] [place] [address] 08/16/2024 Procedure Pass [facility] Card[facility] Division [address], [address] [place] [address] 10/05/2024 Procedure Pass [facility] Cardiology Division [address], [address] [place] [address] 11/09/2024 Procedure Pass [facility] Cardiology Division [address] [address], [address] [place] [address] 11/22/2024 Procedure Pass [facility] Cardiology Division [address] [address], [address] [place] [address] 11/22/2024 Procedure Pass [facility] Cardiology Division [address] [address], [address] [place] [address] 11/26/2024 Procedure Pass [facility] Echo Lab 30 [place] [address] 12/05/2024 Procedure Pass [facility] Cardiology Division [address], [address] [place] [address] 12/05/2024 Procedure Pass [facility] Cardiology Division [address] [address], [address] [place] [address] 12/22/2024 7:00 AM EST Appointment [facility] Cardiology Division [address] [address], [address] [place] [address] Sumit Toledo MD, PhD [address] [place] [address] [email or web address] 01/21/2025 7:00 AM EST Appointment [facility] Cardiology Division [address], [address] [place] [address] Sumit Toledo MD, PhD 55 [facility]1109 [place] [address] [email or web address] 02/21/2025 10:30 AM EST Appointment [facility] Cardiology Division 55 [facility], [address] [place] [address] Sumit Toledo MD, PhD 55 [facility]1[address] [place] [address] [email or web address] 05/20/2025 10:30 AM EDT Appointment [facility] Echo Lab 30 [place] [address] Tal Stanley MD [address] [address] [email or web address] 07/12/2025 9:00 AM EDT Appointment [facility] Cardiac EP 32 [facility], 5th Floor, [address] [place] [address] Sumit Toledo MD, PhD [address] [place] [address] [email or web address] 07/12/2025 9:30 AM EDT Office Visit [facility] Cardiac Arrhythmia Service 32 [facility], 5th Floor, [address] [place] [address] Lisa Mccarthy NP [address] [address] [email or web address] 07/12/2025 11:00 AM EDT Office Visit [facility] Heart Failure & Transplantation 32 [facility], 5th Floor, [address] [place] [address] Tal Stanley MD [address] [place] [address] [email or web address] documented as of this encounter Visit Diagnoses Not on filedocumented in this encounter Additional Health Concerns Infection Onset Date Last Indicated Resolved Time CoV-Risk 02/10/2024 02/10/2024 02/21/2024 1:22 AM EST RSV 02/10/2024 02/10/2024 02/17/2024 1:25 AM EST documented as of this encounter Care Teams Sanitary Landfill Operator Relationship Specialty Start Date End Date Eduardo Rutledge MD [address] [place] [address] PCP - General Internal Medicine 06/19/18 documented as of this encounter Additional Source Comments The information contained in this document represents components of the legal health record. It is not the complete legal health record.[facility]
--- OUTSIDE RECORDS SUMMARY | 2024-12-06 10:28 | XMS_ITS | Encounter Summary ---
Author Organization [facility] Address [facility] [address] [place] [address] Phone Care Team Providers Care Rf Technician Name Role Phone Eudardo Rutledge MD Primary Care Provid er Encounter Details Date Type Department Care Team (Late st Contact Info) Description 10/21/2023 Procedure Pass [facility] Cardiology Division 55 [facility], [address] [place] [address] Social History Tobacco Use Types Packs/Day Years [...] Contact Info) Description 07/09/2024 Procedure Pass [facility] Cardiology Division [address] [address], [address] [place] [address] 08/16/2024 Procedure Pass [facility] Cardiology Division [address], [address] [place] [address] 10/05/2024 Procedure Pass [facility] Cardiology Division [address], [address] [place] [address] 11/09/2024 Procedure Pass [facility] Cardiology Division [address] [address], [address] [place] [address] 11/22/2024 Procedure Pass [facility] Cardiology Division [address] [address], [address] [place] [address] 11/22/2024 Procedure Pass [facility] Cardiology Division [address] [address], [address] [place] [address] 11/26/2024 Procedure Pass [facility] Echo Lab [address] [place] [address] 12/05/2024 Procedure Pass [facility] Cardiology Division [address], [address] [place] [address] 12/05/2024 Procedure Pass [facility] Cardiology Division [address] [address], [address] [place] [address] 12/22/2024 7:00 AM EST Appointment [facility] Cardiology Division [address] [address], [address] [place] [address] Sumit Toledo MD, PhD [address] [place] [address] [email or web address] 01/21/2025 7:00 AM EST Appointment [facility] Cardiology Division [address], [address] [place] [address] Sumit Toledo MD, PhD 55 [facility]1109 [place] [address] [email or web address] 02/21/2025 10:30 AM EST Appointment [facility] Cardiology Division 55 [facility], [address] [place] [address] Sumit Toledo MD, PhD 55 [facility]1[address] [place] [address] [email or web address] 05/20/2025 10:30 AM EDT Appointment [facility] Echo Lab [address] [place] [address] Tal Stanley MD [address] [address] [email or web address] 07/12/2025 9:00 AM EDT Appointment [facility] Cardiac EP 32 [facility], 5th Floor, [address] [place] [address] Sumit Toledo MD, PhD [address] [place] [address] [email or web address] 07/12/2025 9:30 AM EDT Office Visit [facility] Cardiac Arrhythmia Service 32 [facility], 5th Floor, [address] [place] [address] Lisa Mccarthy NP [address] [address] [email or web address] 07/12/2025 11:00 AM EDT Office Visit [facility] Heart Failure & Transplantation 32 [facility], 5th Floor, [address] [place] [address] Tal Stanley MD [address] [place] [address] [email or web address] documented as of this encounter Visit Diagnoses Not on filedocumented in this encounter Additional Health Concerns Infection Onset Date Last Indicated Resolved Time CoV-Risk 02/10/2024 02/10/2024 02/21/2024 1:22 AM EST RSV 02/10/2024 02/10/2024 02/17/2024 1:25 AM EST documented as of this encounter Care Teams Rf Technician Relationship Specialty Start Date End Date Eduardo Rutledge MD [address] [place] [address] PCP - General Internal Medicine 06/19/18 documented as of this encounter Additional Source Comments The information contained in this document represents components of the legal health record. It is not the complete legal health record.[facility]
--- OUTSIDE RECORDS SUMMARY | 2024-12-06 10:28 | XMS_ITS | Encounter Summary ---
Author Organization [facility] Address [facility] [address] [place] [address] Phone Care Team Providers Care Director Merit System Name Role Phone Eduardo Rutledge MD Primary Care Provid er Encounter Details Date Type Department Care Team (Late st Contact Info) Description 05/13/2020 Procedure Pass [facility] EP Pacer Lab 55 [facility], Floor 1, [address] [place] [address] Social History Tobacco Use Types [...] st Contact Info) Description 07/09/2024 Procedure Pass [facility] Cardiology Division [address] [facility], [address] [place] [address] 08/16/2024 Procedure Pass [facility] Cardiology Division [address] [address], [address] [place] [address] 10/05/2024 Procedure Pass [facility] Cardiology Division [address] [address], [address] [place] [address] 11/09/2024 Procedure Pass [facility] Cardiology Division [address], [address] [place] [address] 11/22/2024 Procedure Pass [facility] Cardiology Division [address] [address], [address] [place] [address] 11/22/2024 Procedure Pass [facility] Cardiology Division [address], [address] [place] [address] 11/26/2024 Procedure Pass [facility] Echo Lab [address] [place] [address] 12/05/2024 Procedure Pass [facility] Cardiology Division [address] [address], [address] [place] [address] 12/05/2024 Procedure Pass [facility] Cardiology Division [address], [address] [place] [address] 12/22/2024 7:00 AM EST Appointment [facility] Cardiology Division [address], [address] [place] [address] Sumit Toledo MD, PhD [address] [place], [place] [address] [place] [address] [email or web address] 01/21/2025 7:00 AM EST Appointment [facility] Cardiology Division [address], [address] [place] [address] Sumit Toledo MD, PhD [address] [place] [address]-[address] [place] [address] [email or web address] 02/21/2025 10:30 AM EST Appointment [facility] Cardiology Division [address], [address] [place] [address] Sumit Toledo MD, PhD 55 [facility] [address] [email or web address] 05/20/2025 10:30 AM EDT Appointment [facility] Echo Lab 30 [place] [address] Tal Stanley MD [address] [address] [email or web address] 07/12/2025 9:00 AM EDT Appointment [facility] Cardiac EP 32 [facility], 5th Floor, [address] [place] [address] Sumit Toledo MD, PhD 55 [facility] [address] [email or web address] 07/12/2025 9:30 AM EDT Office Visit [facility] Cardiac Arrhythmia Service 32 [facility], 5th Floor, [address] [place] [address] Lisa Mccarthy NP [address] [address] [email or web address] 07/12/2025 11:00 AM EDT Office Visit [facility] Heart Failure & Transplantation 32 [facility], 5th Floor, [address] [place] [address] Tal Stanley MD [address] [address] [email or web address] documented as of this encounter Visit Diagnoses Not on filedocumented in this encounter Additional Health Concerns Infection Onset Date Last Indicated Resolved Time CoV-Risk 02/10/2024 02/10/2024 02/21/2024 1:22 AM EST RSV 02/10/2024 02/10/2024 02/17/2024 1:25 AM EST documented as of this encounter Care Teams Director Merit System Relationship Specialty Start Date End Date Eduardo Rutledge MD [address] [place] [address] PCP - General Internal Medicine 06/19/18 documented as of this encounter Additional Source Comments The information contained in this document represents components of the legal health record. It is not the complete legal health record.[facility]
--- OUTSIDE RECORDS SUMMARY | 2024-12-06 10:28 | XMS_ITS | Encounter Summary ---
Author Organization [facility] Address [facility] [address] [place] [address] Phone Care Team Providers Care Lead Neurodiagnostic Technologist Name Role Phone Eduardo Rutledge MD Primary Care Provid er Encounter Details Date Type Department Care Team (Late st Contact Info) Description 06/09/2022 Procedure Pass [facility] Cardiac EP 32 [facility], 5th Floor, [address] [place] [address] Social History Tobacco Use Types Packs/Day Years [...] [address], [address] [place] [address] 08/16/2024 Procedure Pass [facility] Cardiology Division [address], [address] [place] [address] 10/05/2024 Procedure Pass [facility] Cardiology Division [address], [address] [place] [address] 11/09/2024 Procedure Pass [facility] Cardiology Division [address], [address] [place] [address] 11/22/2024 Procedure Pass [facility] Cardiology Division [address], [address] [place] [address] 11/22/2024 Procedure Pass [facility] Cardiology Division [address], [address] [place] [address] 11/26/2024 Procedure Pass [facility] Echo Lab 30 [place] [address] 12/05/2024 Procedure Pass [facility] Cardiology Division [address], [address] [place] [address] 12/05/2024 Procedure Pass [facility] Cardiology Division [address], [address] [place] [address] 12/22/2024 7:00 AM EST Appointment [facility] Cardiology Division [address], [address] [place] [address] Sumit Toledo MD, PhD [address] [place], [place] [address] [place] [address] [email or web address] 01/21/2025 7:00 AM EST Appointment [facility] Cardiology Division [address], [address] [place] [address] Sumit Toledo MD, PhD [address] [place] [address] [place] [address] [email or web address] 02/21/2025 10:30 AM EST Appointment [facility] Cardiology Division 55 [facility], [address] [place] [address] Sumit Toledo MD, PhD 55 [facility] [place] [address] [email or web address] 05/20/2025 10:30 AM EDT Appointment [facility] Echo Lab 30 [place] [address] Tal Stanley MD [address] [address] [email or web address] 07/12/2025 9:00 AM EDT Appointment [facility] Cardiac EP 32 [facility], 5th Floor, [address] [place] [address] Sumit Toledo MD, PhD [address] [place] [address] [place] [address] [email or web address] 07/12/2025 9:30 AM EDT Office Visit [facility] Cardiac Arrhythmia Service 32 [facility], 5th Floor, [address] [place] [address] Lisa Mccarthy NP [address] [address] [email or web address] 07/12/2025 11:00 AM EDT Office Visit [facility] Heart Failure & Transplantation 32 [facility], 5th Floor, [address] [place] [address] Tal Stanley MD [address] [address] [email or web address] documented as of this encounter Visit Diagnoses Not on filedocumented in this encounter Additional Health Concerns Infection Onset Date Last Indicated Resolved Time CoV-Risk 02/10/2024 02/10/2024 02/21/2024 1:22 AM EST RSV 02/10/2024 02/10/2024 02/17/2024 1:25 AM EST documented as of this encounter Care Teams Lead Neurodiagnostic Technologist Relationship Specialty Start Date End Date Eduardo Rutledge MD [address] [place] [address] PCP - General Internal Medicine 06/19/18 documented as of this encounter Additional Source Comments The information contained in this document represents components of the legal health record. It is not the complete legal health record.[facility]
--- OUTSIDE RECORDS SUMMARY | 2024-12-06 10:28 | XMS_ITS | Encounter Summary ---
Author Organization [facility] Address [facility] [address] [place] [address] Phone Care Team Providers Care Sales And Service Officer Name Role Phone Eduardo Rutledge MD Primary Care Provid er Encounter Details Date Type Department Care Team (Late st Contact Info) Description 05/19/2020 Procedure Pass [facility] Card[facility] 55 [facility], [address] [place] [address] Social History Tobacco Use Types Packs/Day Years [...] st Contact Info) Description 07/09/2024 Procedure Pass [facility] Cardiology Division 55 [facility], [address] [place] [address] 08/16/2024 Procedure Pass [facility] Cardiology Division [address], [address] [place] [address] 10/05/2024 Procedure Pass [facility] Cardiology Division [address], [address] [place] [address] 11/09/2024 Procedure Pass [facility] Cardiology Division [address], [address] [place] [address] 11/22/2024 Procedure Pass [facility] Cardiology Division [address], [address] [place] [address] 11/22/2024 Procedure Pass [facility] Cardiology Division [address], [address] [place] [address] 11/26/2024 Procedure Pass [facility] Echo Lab 30 [place] [address] 12/05/2024 Procedure Pass [facility] Cardiology Division [address], [address] [place] [address] 12/05/2024 Procedure Pass [facility] Cardiology Division [address], [address] [place] [address] 12/22/2024 7:00 AM EST Appointment [facility] Cardiology Division [address], [address] [place] [address] Sumit Toledo MD, PhD [address] [place] [address] [email or web address] 01/21/2025 7:00 AM EST Appointment [facility] Cardiology Division [address], [address] [place] [address] Sumit Toledo MD, PhD [address] [place], [place] [address] [address] [email or web address] 02/21/2025 10:30 AM EST Appointment [facility] Cardiology Division [address], [address] [place] [address] Sumit Toledo MD, PhD 55 [facility] [address] [place] [address] [email or web address] 05/20/2025 10:30 AM EDT Appointment [facility] Echo Lab 30 [place] [address] Tal Stanley MD [address] [address] [email or web address] 07/12/2025 9:00 AM EDT Appointment [facility] Cardiac EP 32 [facility], 5th Floor, [address] [place] [address] Sumit Toledo MD, PhD [address] [place], [place] [address] [address] [email or web address] 07/12/2025 9:30 AM EDT Office Visit [facility] Cardiac Arrhythmia Service 32 [facility], 5th Floor, [address] [place] [address] Lisa Mccarthy NP [address] [address] [email or web address] 07/12/2025 11:00 AM EDT Office Visit [facility] Heart Failure & Transplantation 32 [facility], 5th Floor, [address] [place] [address] Tal Stanley MD [address] [address] [email or web address] documented as of this encounter Visit Diagnoses Not on filedocumented in this encounter Additional Health Concerns Infection Onset Date Last Indicated Resolved Time CoV-Risk 02/10/2024 02/10/202402/2002/21/2024 1:22 AM EST RSV 02/10/2024 02/10/2024 02/17/2024 1:25 AM EST documented as of this encounter Care Teams Sales And Service Officer Relationship Specialty Start Date End Date Eduardo Rutledge MD [address] [place] [address] PCP - General Internal Medicine 06/19/18 documented as of this encounter Additional Source Comments The information contained in this document represents components of the legal health record. It is not the complete legal health record.[facility]
--- OUTSIDE RECORDS SUMMARY | 2024-12-06 10:28 | XMS_ITS | Encounter Summary ---
Author Organization [facility] Address [facility] [address] [place] [address] Phone Care Team Providers Care Locomotive Operator Helper Name Role Phone Eduardo Rutledge MD Primary Care Provid er Encounter Details Date Type Department Care Team (Late st Contact Info) Description 05/01/2020 Procedure Pass [facility] EP Pacer Lab [address] [employer], Floor 1, [address] [place] [address] Social History Tobacco Use Types [...] Pass [facility] Cardiology Division [address] [employer], [address] [place] [address] 08/16/2024 Procedure Pass [facility] Cardiology Division [address], [address] [place] [address] 10/05/2024 Procedure Pass [facility] Cardiology Division [address], [address] [place] [address] 11/09/2024 Procedure Pass [facility] Cardiology Division [address], [address] [place] [address] 11/22/2024 Procedure Pass [facility] Cardiology Division [address], [address] [place] [address] 11/22/2024 Procedure Pass [facility] Cardiology Division [address], [address] [place] [address] 11/26/[address] [facility] Echo Lab 30 [place] [address] 12/05/2024 Procedure Pass [facility] Cardiology Division [address], [address] [place] [address] 12/05/2024 Procedure Pass [facility] Cardiology Division [address], [address] [place] [address] 12/22/2024 7:00 AM EST Appointment [facility] Cardiology Division [address], [address] [place] [address] Sumit Toledo MD, PhD [address] [place], [place] [address] [place] [address] [email or web address] 01/21/2025 7:00 AM EST Appointment [facility] Cardiology Division [address], [address] [place] [address] Sumit Toledo MD, PhD [address] [place] [address]-[address] [place] [address] [email or web address] 02/21/2025 10:30 AM EST Appointment [facility] Cardiology Division [address], [address] [place] [address] Sumit Toledo MD, PhD [address] [facility] [address] [email or web address] 05/20/2025 10:[address] [facility] Echo Lab 30 [place] [address] Tal Stanley MD [address] [address] [email or web address] 07/12/2025 9:00 AM EDT Appointment [facility] Cardiac EP 32 [facility], 5th Floor, [address] [place] [address] Sumit Toledo MD, PhD [address] [facility] [address] [email or web address] 07/12/2025 9:30 AM EDT Office Visit [facility] Cardiac Arrhythmia Service 32 [facility], 5th Floor, [address] [place] [address] Lisa Mccarthy NP [address] [address] [email or web address] 07/12/2025 11:00 AM EDT Office Visit [facility] Heart Failure & Transplantation 32 [facility], 5th Floor, [address] [place] [address] Tal Stanley MD [address] [address] [email or web address] documented as of this encounter Visit Diagnoses Not on filedocumented in this encounter Additional Health Concerns Infection Onset Date Last Indicated Resolved Time CoV-Risk 02/10/2024 02/10/2024 02/21/2024 1:22 AM EST RSV 02/10/2024 02/10/2024 02/17/2024 1:25 AM EST documented as of this encounter Care Teams Locomotive Operator Helper Relationship Specialty Start Date End Date Eduardo Rutledge MD [address] [place] [address] PCP - General Internal Medicine 06/19/18 documented as of this encounter Additional Source Comments The information contained in this document represents components of the legal health record. It is not the complete legal health record.[facility]
--- OUTSIDE RECORDS SUMMARY | 2024-12-06 10:28 | XMS_ITS | Encounter Summary ---
Author Organization [facility] Address [facility] [address] [place] [address] Phone Care Team Providers Care Bar Roller Name Role Phone Eduardo Rutledge MD Primary Care Provid er Encounter Details Date Type Department Care Team (Late st Contact Info) Description 02/06/2024 Procedure Pass [facility] [place] [address] [place] [address], [address] [place] [address] Social History Tobacco Use Types Packs/Day Years [...] [place] [address], [address] [place] [address] 08/16/2024 Procedure Pass [facility] [place] [address], [address] [place] [address] 10/05/2024 Procedure Pass [facility] [place] [address], [address] [place] [address] 11/09/2024 Procedure Pass [facility] [place] [address], [address] [place] [address] 11/22/2024 Procedure Pass [facility] [place] [facility] [address], [address] [place] [address] 11/22/2024 Procedure Pass [facility] [place] [address], [address] [place] [address] 11/26/2024 Procedure Pass [facility] Echo Lab 30 [place] [address] 12/05/2024 Procedure Pass [facility] [place] [address], [address] [place] [address] 12/05/2024 Procedure Pass [facility] [place] [address], [address] [place] [address] 12/22/2024 7:00 AM EST Appointment [facility] [place] [address], [address] [place] [address] Sumit Toledo MD, PhD [address] [place] [address] [email or web address] 01/21/2025 7:00 AM EST Appointment [facility] [place] [address], [address] [place] [address] Sumit Toledo MD, PhD 55 [facility]1109 [place] [address] [email or web address] 02/21/2025 10:30 AM EST Appointment [facility] [place] 55 [facility], [address] [place] [address] Sumit Toledo MD, PhD 55 [facility] [place] [address] [email or web address] 05/20/2025 10:30 AM EDT Appointment [facility] Echo Lab 30 [place] [address] Tal Stanley MD [address] [address] [email or web address] 07/12/2025 9:00 AM EDT Appointment [facility] [place] 32 [facility], 5th Floor, [address] [place] [address] Sumit Toledo MD, PhD [address] [place] [address] [email or web address] 07/12/2025 9:30 AM EDT Office Visit [facility] [place]ia Service 32 [facility], 5th Floor, [address] [place] [address] Lisa Mccarthy NP [address] [address] [email or web address] 07/12/2025 11:00 AM EDT Office Visit [facility] [place] Failure & Transplantation 32 [facility], 5th Floor, [address] [place] [address] Tal Stanley MD [address] [place] [address] [email or web address] documented as of this encounter Visit Diagnoses Not on filedocumented in this encounter Additional Health Concerns Infection Onset Date Last Indicated Resolved Time CoV-Risk 02/10/2024 02/10/2024 02/21/2024 1:22 AM EST RSV 02/10/2024 02/10/2024 02/17/2024 1:25 AM EST documented as of this encounter Care Teams Bar Roller Relationship Specialty Start Date End Date Eduardo Rutledge MD [address] [place] [address] PCP - General Internal Medicine 06/19/18 documented as of this encounter Additional Source Comments The information contained in this document represents components of the legal health record. It is not the complete legal health record.[facility]
--- OUTSIDE RECORDS SUMMARY | 2024-12-06 10:28 | XMS_ITS | Encounter Summary ---
Author Organization [facility] Address [facility] [address] [place] [address] Phone Care Team Providers Care Hardware Technician Name Role Phone Eduardo Rutledge MD Primary Care Provid er Encounter Details Date Type Department Care Team (Late st Contact Info) Description 01/10/2024 Procedure Pass [facility] Cardiology Division [address] [place] [address], [address] [place] [address] Social History Tobacco Use Types Packs/Day Years [...] [facility] [address] [address], [address] [place] [address] 08/16/2024 Procedure Pass [facility] Cardiology Division [address], [address] [place] [address] 10/05/2024 Procedure Pass [facility] Cardiology Division [address], [address] [place] [address] 11/09/2024 Procedure Pass [facility] Cardiology Division [address] [address], [address] [place] [address] 11/22/2024 Procedure Pass [facility] Cardiology Division [address], [address] [place] [address] 11/22/2024 Procedure Pass [facility] Cardiology Division [address] [address], [address] [place] [address] 11/26/2024 Procedure Pass [facility] Echo Lab 30 [place] [address] 12/05/2024 Procedure Pass [facility] Cardiology Division [address], [address] [place] [address] 12/05/2024 Procedure Pass [facility] Cardiology Division [address], [address] [place] [address] 12/22/2024 7:00 AM EST Appointment [facility] Cardiology Division [address], [address] [place] [address] Sumit Toledo MD, PhD [address] [place] [address] [email or web address] 01/21/2025 7:00 AM EST Appointment [facility] Cardiology Division [address], [address] [place] [address] Sumit Toledo MD, PhD 55 [facility]1109 [place] [address] [email or web address] 02/21/2025 10:30 AM EST Appointment [facility] Cardiology Division 55 [facility], [address] [place] [address] Sumit Toledo MD, PhD 55 [facility] [place] [address] [email or web address] 05/20/2025 10:30 AM EDT Appointment [facility] Echo Lab 30 [place] [address] Tal Stanley MD [address] [address] [email or web address] 07/12/2025 9:00 AM EDT Appointment [facility] Cardiac EP 32 [facility], 5th Floor, [address] [place] [address] Sumit Toledo MD, PhD [address] [place] [address] [email or web address] 07/12/2025 9:30 AM EDT Office Visit [facility] Cardiac Arrhythmia Service 32 [facility], 5th Floor, [address] [place] [address] Lisa Mccarthy NP [address] [address] [email or web address] 07/12/2025 11:00 AM EDT Office Visit [facility] Heart Failure & Transplantation 32 [facility], 5th Floor, [address] [place] [address] Tal Stanley MD [address] [place] [address] [email or web address] documented as of this encounter Visit Diagnoses Not on filedocumented in this encounter Additional Health Concerns Infection Onset Date Last Indicated Resolved Time CoV-Risk 02/10/2024 02/10/2024 02/21/2024 1:22 AM EST RSV 02/10/2024 02/10/2024 02/17/2024 1:25 AM EST documented as of this encounter Care Teams Hardware Technician Relationship Specialty Start Date End Date Eduardo Rutledge MD [address] [place] [address] PCP - General Internal Medicine 06/19/18 documented as of this encounter Additional Source Comments The information contained in this document represents components of the legal health record. It is not the complete legal health record.[facility]
--- OUTSIDE RECORDS SUMMARY | 2024-12-06 10:28 | XMS_ITS | Encounter Summary ---
Author Organization [facility] Address [facility] [address] [place] [address] Phone Care Team Providers Care Grain Trader Name Role Phone Eduardo Rutledge MD Primary Care Provid er Encounter Details Date Type Department Care Team (Late st Contact Info) Description 12/09/2021 Procedure Pass [facility] Cardiology Division [address], [address] [place] [address] Social History Tobacco Use Types Packs/Day Years [...] st Contact Info) Description 07/09/2024 Procedure Pass [facility] Cardiology Division [address], [address] [place] [address] 08/16/2024 Procedure Pass [facility] Cardiology Division [address], [address] [place] [address] 10/05/2024 Procedure Pass [facility] Cardiology Division [address], [address] [place] [address] 11/09/2024 Procedure Pass [facility] Cardiology Division [address], [address] [place] [address] 11/22/2024 Procedure Pass [facility] Cardiology Division [address], [address] [place] [address] 11/22/2024 Procedure Pass [facility] Cardiology Division [address], [address] [place] [address] 11/26/2024 Procedure Pass [facility] Echo Lab [address] [place] [address] 12/05/2024 Procedure Pass [facility] Cardiology Division [address], [address] [place] [address] 12/05/2024 Procedure Pass [facility] Cardiology Division [address], [address] [place] [address] 12/22/2024 7:00 AM EST Appointment [facility] Cardiology Division [address], [address] [place] [address] Sumit Toledo MD, PhD [address] [place] [id number] [email or web address] 01/21/2025 7:00 AM EST Appointment [facility] Cardiology Division [address], [address] [place] [address] Sumit Toledo MD, PhD [address] [place], [place] [address] [id number] [email or web address] 02/21/2025 10:30 AM EST Appointment [facility] Cardiology Division [address], [address] [place] [address] Sumit Toledo MD, PhD [address] [facility] [place] [address] [email or web address] 05/20/2025 10:30 AM EDT Appointment [facility] Echo Lab [address] [place] [address] Tal Stanley MD [address] [address] [email or web address] 07/12/2025 9:00 AM EDT Appointment [facility] Cardiac EP [address] [facility], [address]th [address], [address] [place] [address] Sumit Toledo MD, PhD [address] [place], [place] [address] [id number] [email or web address] 07/12/2025 9:30 AM EDT Office Visit [facility] Cardiac Arrhythmia Service [address] [facility], [address], [address] [place] [address] Lisa Mccarthy NP [address] [address] [email or web address] 07/12/2025 11:00 AM EDT Office Visit [facility] Heart Failure & Transplantation [address] [facility], [address]th Floor, [address] [place] [address] Tal Stanley MD [address] [address] [email or web address] documented as of this encounter Visit Diagnoses Not on filedocumented in this encounter Additional Health Concerns Infection Onset Date Last Indicated Resolved Time CoV-Risk 02/10/2024 02/10/202402/2002/21/2024 1:22 AM EST RSV 02/10/2024 02/10/2024 02/17/2024 1:25 AM EST documented as of this encounter Care Teams Grain Trader Relationship Specialty Start Date End Date Eduardo Rutledge MD [address] [place] [id number] PCP - General Internal Medicine 06/19/18 documented as of this encounter Additional Source Comments The information contained in this document represents components of the legal health record. It is not the complete legal health record.[facility]
--- OUTSIDE RECORDS SUMMARY | 2024-12-06 10:29 | XMS_ITS | Clinical Summary ---
Author Organization [facility] Address [address] [place] [address] [place] [address] Phone Care Team Providers Care Bit Sharpener Name Role Phone Eduardo Rutledge MD Primary [...] Active Additional Information Patient not taking.Reported on 11/26/2024 digoxin (LANOXIN) 125 mcg tabletIndication s:Persistent atrial fibrillation TAKE 1 TABLET BY MOUTH EVERY DAY 90 tablet 3 4 Active Additional Information Patient not taking.Reported on 11/26/2024 sacubitriL-valsa rtan (ENTRESTO) 24-26 mg per tablet Take 1 tablet by mouth 2 (two) times a day. 180 tablet 3 5 Active Additional Information Patient not taking.Reported on 11/26/2024 metoprolol succinate (TOPROL-XL) 50 MG 24 hr tablet Take 3 tablets (150 mg total) by mouth 2 (two) times a day. 540 tablet 3 5 Active traZODone (DESYREL) 50 MG tablet Take 50 mg by mouth nightly at bedtime. Active gabapentin (NEURONTIN) 100 MG capsule Take 100 mg by mouth 2 (two) times a day. Active Active Problems Problem Noted Date Diagnosed [...] be done with next INR check at [facility] we will coordinate Assessment & Plan (06/19/2018 [...] is followed at the Coumadin clinic at [facility]. Assessment & Plan (06/27/2020 12:54 PM EDT): Patient denies any AF related symptoms. He is rate controlled on Coreg 50mg BID and Digoxin 125mcg. Last Dig level 0.9 on 05/02/20. He is appropriately anticoagulated on Warfarin, which is managed by his PCP. His INRs are [facility] at [facility]. He reports tolerating the warfarin well, and is not interested in changing to a NOAC. Continue current medication regimen and f/u in 1 year. Assessment & Plan (06/16/2020 11:58 AM EDT): -- on coumadin, on coreg 50 bid -- TRAFFIC CLERK-D, no shocks in past, Bi-V paced approx 60% of time -- followed by Dr. Toledo Assessment & Plan (04/26/2020 3:37 PM EDT): Continue Coreg 50mg BID and Digoxin 125mcg for rate control. Will update digoxin level. Assessment & Plan (06/11/2019 8:21 AM EDT): -- on coumadin, on coreg 50 bid -- TRAFFIC CLERK-D, no shocks in past, Bi-V paced approx [...] at rest on coreg 50 bid -- TRAFFIC CLERK-D, no shocks in past, Bi-V paced approx 60% of time -- followed by Dr. Toledo Assessment & Plan (09/16/2017 4:22 PM EDT): Discussed the NOACs He will check his insurance Assessment & Plan (06/20/2017 11:48 AM EDT): -- on coumadin, HR 75 at rest on coreg 50 bid -- TRAFFIC CLERK-D, no shocks in past Assessment & Plan (02/28/2017 10:09 AM EST): -- on coumadin, HR a bit high today, acute illness needs to be worked up as below -- TRAFFIC CLERK-D, no shocks in past Assessment & Plan (12/13/2016 8:39 PM EST): -- on coumadin, HR reasonable -- TRAFFIC CLERK-D, no shocks in past Assessment & Plan (09/12/2016 9:36 AM EDT): Continue current Rx Not interested in NOACs at this time Assessment & Plan (02/15/2016 10:18 AM EST): Continue current Rx Non-ischemic cardiomyopathy 02/15/2016 Overview (02/15/2016): EF 29% - 27% TRAFFIC CLERK-D [facility] [facility] placed 06/20/2013 Medications optimized - [...] out GDMT, likely d/c lasix. -- s/p TRAFFIC CLERK-D Assessment & Plan (06/11/2019 8:20 AM EDT): [...] if BP room for ACEI. -- s/p TRAFFIC CLERK-D Assessment & Plan (06/19/2018 9:04 AM EDT): [...] TTE results 09/2018 are known -- s/p TRAFFIC CLERK-D Assessment & Plan (06/20/2017 11:49 AM EDT): -- NICMP LVEF 27% --> 38% some recovery today! -- etiology not clear, negative w/u to date -- neurohormonal blockade: continue carvedilol and spironolactone at target doses, consider switching carvedilol to toprol so BP can tolerate ACEI. -- s/p TRAFFIC CLERK-D Assessment & Plan (12/13/2016 8:38 PM EST): -- NICMP LVEF 27% -- etiology not clear, has previously been worked up, will need to review -- neurohormonal blockade: continue carvedilol and spironolactone at target doses -- discussed resuming low dose ACEI today lisinopril 2.5mg - he will monitor BP -- RTC 1 month with WELLNESS EDUCATOR for BP check and labs given previous low BP on ACEI higher dose (5mg) -- repeat TTE routine to monitor LVEF -- s/p TRAFFIC CLERK-D Assessment & Plan (09/12/2016 9:36 AM EDT): [...] repeat TTE Cardiac resynchronization th erapy defibrillator (TRAFFIC CLERK-D) in place 07/25/2015 Overview (06/27/2020): [facility] TRAFFIC CLERK-D RV and LV placed 06/20/2013 No RA [...] at 33%. He will continue remote transmissions [id number] with IPDE annually. Assessment & Plan (06/30/2021 5:41 PM EDT): IPDE showed appropriate device function today with BiV pacing 63% and trigger pacing at 37%. Continue remote transmissions [id number] with IPDE annually. He was previously followed [...] presents to discuss gen change. We discussed TRAFFIC CLERK-D generator change in length. ?Explained the risks [...] for monthly battery checks. The procedure of TRAFFIC CLERK-D generator change was explained in detail to the patient. The alternatives and benefits TRAFFIC CLERK-D generator change were discussed in detail. We [...] (07/25/2015 5:42 PM EDT): [facility] TRAFFIC CLERK-D implanted for non-ischemic cardiomyopathy, CHF and LBBB [...] become more of an issue interfering with TRAFFIC CLERK. At this point he would like to continue the current management strategy. Continue digoxin and Coreg. Intermittent diaphragmatic stim discussed. Now resolved. Plan for remote transmission in 3 months followed by in person device check in 6 months. Cardiomyopathy 07/25/2015 Overview (07/25/2015): Cardiomyopathy. Service date: 11/28/2014. Author: Annelise Campoverde NP. Comment: s/p TRAFFIC CLERK-ICD, on good medical therapy. BiV pacing is [...] NYHA II. Chemistries will be checked at [facility]. Assessment & Plan (09/16/2017 4:21 PM [...] TTE routine to monitor LVEF -- s/p TRAFFIC CLERK-D Essential hypertension 07/25/2015 Overview (07/25/2015): Essential hypertension. [...] Plan (02/28/2017 10:09 AM EST): -- s/p TRAFFIC CLERK-D Ventricular premature beats 07/25/2015 Overview (07/25/2015): Premature ventricular contraction. Service date: 01/16/2014. Author: Marco Toledo MD. Summary: He had frequent outflow tract PVCs on EKG 09/26/2012. In some cases these can contribute to cardiomyopathy. He had a Holter on 09/27/2012 ([facility]) to determine the adequacy of his rate [...] Encounters Date Type Department Care Team Description 11/26/2024 9:00 AM EDT Office Visit [facility] & Transplantation [address], [address] [place] [address] Tal Stanley MD Essential hypertension (Primary Dx); Chronic systolic heart failure; Dilated cardiomyopathy; Ventricular premature beats; Cardiac resynchronization therapy defibrillator (TRAFFIC CLERK-D) in place 11/26/2024 Orders Only [facility] Cardiovascular Medicine [address], [address] [place] [address] Eduardo Rutledge MD 11/21/2024 10:30 AM EDT - 11/21/2024 11:59 PM EDT Hospital Encounter [facility] Cardiology Division [address] [facility], [address] [place] [address] Sumit Toledo MD, PhD Discharge Disposition: Home or Self Care 11/09/2024 2:30 PM EDT Office Visit [facility] Cardiac Arrhythmia Service [address], [address] [place] [address] Sumit Toledo MD, PhD Permanent atrial fibrillation (Primary Dx); Essential hypertension; Cardiac resynchronization therapy defibrillator (TRAFFIC CLERK-D) in place; Non-ischemic cardiomyopathy 11/09/2024 1:23 PM EDT - 11/09/2024 11:59 PM EDT Hospital Encounter [facility] Cardiac EP [address], [address] [place] [address] Sumit Toledo MD, PhD Discharge Disposition: Home or Self Care 11/09/2024 Procedure Pass [facility] Cardiology Division [address] [facility], [address] [place] [address] 10/05/2024 7:30 AM EDT - 10/05/2024 11:59 PM EDT Hospital Encounter [facility] Cardiology Division [address] [facility], [address] [place] [address] Sumit Toledo MD, PhD Discharge Disposition: Home or Self Care 10/05/2024 Procedure Pass [facility] Cardiac EP [address] [facility], [address] [place] [address] 08/16/2024 Procedure Pass [facility] Cardiology Division [address] [facility], [address] [place] [address] from Last 3 Months Family History Medical [...] Sign Reading Time Taken Comments Blood Pressure 104/72 11/26/2024 8:42 AM EDT Pulse 72 11/26/2024 8:42 AM EDT Temperature 36.5 C (97.7 F) 02/10/2024 1:47 PM EST Respiratory Rate 17 02/10/2024 1:47 PM EST Oxygen Saturation 96% 02/10/2024 1:47 PM EST Inhaled Oxygen Concentration - - Weight 91.2 kg (201 lb) 11/26/2024 8:42 AM EDT Height 193 cm (6' 4 ) 02/10/2024 1:47 PM EST Body Mass Index 24.47 02/10/2024 1:47 PM EST Plan of Treatment Upcoming Encounters Date Type Department Care Team (Late st Contact Info) Description 07/09/2024 Procedure Pass [facility] Cardiology Division [address] [facility] [address] [place] [address] 08/16/2024 Procedure Pass [facility] [address] [place] [address] 10/05/2024 Procedure Pass [facility] Cardiology Division [address] [facility], [address] [place] [address] 11/09/2024 Procedure Pass [facility] Cardiology Division [address] [facility], [address] [place] [address] 11/22/2024 Procedure Pass [facility] Cardiology Division [address] [facility], [address] [place] [address] 11/22/2024 Procedure Pass [facility] Cardiology Division [address] [facility], [address] [place] [address] 11/26/2024 Procedure Pass [facility] Echo Lab [address] [place] [address] 12/05/2024 Procedure Pass [facility] Cardiology Division [address] [facility], [address] [place] [address] 12/05/2024 Procedure Pass [facility] Cardiology Division [address] [facility], [address] [place] [address] 12/22/2024 7:00 AM EST Appointment [facility] Cardiology [facility] [address] [facility], [address] [place] [address] Sumit Toledo MD, PhD [address] [place] [address] [email or web address] 01/21/2025 7:00 AM EST Appointment [facility] Cardiology [facility] [address] [facility] [facility], [address] [place] [address] Sumit Toledo MD, PhD [address] [place] [address] [email or web address] 02/21/2025 10:30 AM EST Appointment [facility] Cardiology [facility] [address] [facility], [address] [place] [address] Sumit Toledo MD, PhD [address] [address] [email or web address] 05/20/2025 10:30 AM EDT Appointment [facility] Echo Lab [address] [place] [address] Tal Stanley MD [address] [address] [email or web address] 07/12/2025 9:00 AM EDT Appointment [facility] Cardiac EP [address] [facility], [address] [place] [address] Sumit Toledo MD, PhD [address] [place] [address] [email or web address] 07/12/2025 9:30 AM EDT Office Visit [facility] Cardiac Arrhythmia Service [address] [facility], [address] [place] [address] Lisa Mccarthy NP [address] [address] [email or web address] 07/12/2025 11:00 AM EDT Office Visit [facility] Heart Failure & Transplantation [address] [facility], [address] [place] [address] Tal Stanley MD [address] [address] [email or web address] Health Maintenance Due Date Last Done Comments DEPRESSION SCREENING 1960 HEPATITIS C SCREENING 1966 PNEUMOCOCCAL VACCINES (50+ years) (1 of 2 - PCV) 09/18/1967 ZOSTER VACCINES (1 of 2) 1998 POTASSIUM LEVEL 12/28/2022 12/28/2021, 03/2 07/2020, 07/15/2019, Additional history exists RSV VACCINE (1 - 1-dose 75+ series) 09/18/2023 INFLUENZA VACCINE (#1) 2024 01/02/2018 COVID-19 VACCINE ( - 2024- season) 2024 BLOOD PRESSURE 05/27/2025 11/26/2024 Adult Td,Tdap Booster 02/09/2026 02/10/2016 LIPID PANEL [...] this topic Medical Devices Implanted Type Area Drill Operator Device Identifier Shelf Expiration Date Model / Serial / Lot Defibrillator Metal Dealer-D Salcha Hf - [id number] Implanted:Qty: 1 on 05/13/2020 by Sumit Toledo MD, PhD at [facility] ICD Left: Chest [employer] 03/09/2022 [id number] / [id number] / Lv Lead-06/20/2013 Implanted: 014 (Quantity not on file) Lead [employer] 1458Q QUARTET / [id number] / Rv Lead-06/20/2013 Implanted: 014 (Quantity not on file) Lead [employer] 7122Q DURATA SJ4 / [id number] / Explanted Type Area Drill Operator Device Identifier Shelf Expiration Date Model / Serial / Lot St Alex Crtd-06/20/2013 Implanted:06/21/19 14 (Quantity not on file) Explanted:Qty: 1 on 05/13/2020 by Sumit Toledo MD, PhD at [facility] ICD [employer] 3365-40Q [facility] / [id number] / Procedures Procedure Name Priority Date/Time Associated Diagnosis Comments ECG 12-LEAD Routine 11/26/2024 8:49 AM EDT Essential hypertension DEVICE CHECK: ICD IN-HOME INTERROGATION Routine 11/21/2024 8:20 PM EDT Non-ischemic cardiomyopathy Cardiac resynchronization therapy defibrillator (TRAFFIC CLERK-D) in place ECG 12-LEAD Routine 11/09/2024 2:16 PM EDT Essential hypertension DEVICE CHECK: ICD IN-PERSON PROGRAMMING MULTIPLE LEAD Routine 11/09/2024 2:14 PM EDT Non-ischemic cardiomyopathy Cardiac resynchronization therapy defibrillator (TRAFFIC CLERK-D) in place DEVICE CHECK: ICD IN-HOME HFM Routine 09/23/2024 3:33 PM EDT Non-ischemic cardiomyopathy Cardiac resynchronization therapy defibrillator (TRAFFIC CLERK-D) in place LIPID PANEL Routine 12/28/2021 2:29 PM EST Lipid screening COMPREHENSIVE METABOLIC PANEL Routine 12/28/2021 2:29 PM EST Cardiomyopathy, unspecified type from Last 3 Months or Most Recently Relevant to Health Maintenance Results * ECG 12-LEAD (11/26/2024 8:49 AM EDT) Only the most recent of2 resultswithin the time period is included. Systolic Blood Pressure [facility] Diastolic Blood Pressure [facility] Ventricular Rate EKG/MIN 72 BPM [facility] Atrial Rate 61 BPM [facility] HI Interval [facility] QRS Duration 160 ms [facility] QT Interval 436 ms [facility] QTC Interval 477 ms [facility] P [place] [facility] R Wave [place] -88 degrees [facility] T Wave [place] 58 degrees [facility] 11/26/2024 8:49 AM EDT 11/26/2024 12:30 PM EDT Narrative [facility] - 11/26/2024 12:30 PM EDT VENTRICULAR-PACED RHYTHM OCCASIONAL PREMATURE VENTRICULAR COMPLEXES BIVENTRICULAR PACING ABNORMAL ECG WHEN COMPARED WITH ECG OF 09-Nov-2024 14:16, PREMATURE VENTRICULAR COMPLEXES ARE NOW PRESENT VENT. RATE HAS DECREASED by 3 bpm us Tal Stanley MD ECG ORDERABLES Final Result [facility] * DEVICE CHECK: ICD IN-HOME INTERROGATION (11/21/2024 8:20 PM EDT) Only the most recent of3 resultswithin the time period is included. Date Time Interrogation Session [id number] [facility] Implantable Pulse Generator Drill Operator [facility] [employer] [facility] Implantable Pulse Generator Model [id number] Salcha HF [facility] Implantable Pulse Generator Serial Number [id number] [facility] Type Interrogation Session Remote Patient Initiated [facility] Re-programmed During Session NO [facility] Clinic Name Arrhythmia Device Clinic [facility] Implantable Pulse Generator Type Cardiac Resynchronization Therapy - Defibrillator [facility] Generator Implant Date 20200513 [facility] Implantable Lead Drill Operator [facility] Implantable Lead Model 1458Q Quartet [facility] Implantable Lead Serial Number [id number] [facility] Implantable Lead Implant Date 20130620 [facility] Implantable Lead Polarity Type Quadripolar Lead [facility] Implantable Lead Location Detail 1 UNKNOWN [facility] Implantable Lead Special Function Implant [facility] Implantable Lead Location Left Atrium [facility] Implantable Lead Drill Operator [facility] Implantable Lead Model 7122Q Durata SJ4 [facility] Implantable Lead Serial Number [id number] [facility] Implantable Lead Implant Date 20130620 [facility] Implantable Lead Polarity Type Tripolar Lead [facility] Implantable Lead Special Function Implant [facility] Implantable Lead Location Right Ventricle [facility] Richie Setting Mode (NBG Code) VVTR [facility] Richie Setting Lower Rate Limit 70 {beats} /min [facility] Richie Setting Maximum Sensor Rate 120 {beats} /min [facility] Lead Channel Setting Sensing Polarity Bipolar [facility] Lead Channel Setting Sensing Polarity Bipolar [facility] Lead Channel Setting Sensing Anode Location Right Ventricle [facility] Lead Channel Setting Sensing Anode Terminal Ring [facility] Lead Channel Setting Sensing Cathode Location Right Ventricle [facility] Lead Channel Setting Sensing Cathode Terminal Tip [facility] Lead Channel Setting Sensing Sensitivity 0.3 mV [facility] Lead Channel Setting Sensing Adaptation Mode Adaptive [facility] Ventricular chambers paced during TRAFFIC CLERK pacing. BiV [facility] TRAFFIC CLERK LV-RV Delay 20 ms [facility] Lead Channel Setting Pacing Polarity Bipolar [facility] Lead Channel Setting Pacing Polarity Bipolar [facility] Lead Channel Setting Pacing Anode Location Right Ventricle [facility] Lead Channel Setting Pacing Anode Terminal Ring [facility] Lead Channel Setting Sensing Cathode Location Right Ventricle [facility] Lead Channel Setting Sensing Cathode Terminal Tip [facility] Lead Channel Setting Pacing Pulse Width 0.5 ms [facility] Lead Channel Setting Pacing Amplitude 2.0 V [facility] Lead Channel Setting Pacing Capture Mode Fixed Pacing [facility] Lead Channel Setting Pacing Polarity Bipolar [facility] Lead Channel Setting Pacing Pulse Width 1.5 ms [facility] Lead Channel Setting Pacing Amplitude 0.75 V [facility] Lead Channel Setting Pacing Capture Mode Fixed Pacing [facility] Zone Setting Type Category VF [facility] Zone Setting Vendor Type Category VF [facility] Zone Setting Status Active [facility] Zone Setting Detection Interval 300 ms [facility] Zone Setting Type Category VT [facility] Zone Setting Vendor Type Category VT2 [facility] Zone Setting Status Inactive [facility] Zone Setting Type Category VT [facility] Zone Setting Vendor Type Category VT1 [facility] Zone Setting Status Monitor [facility] Zone Setting Detection Interval 350 ms [facility] Lead Channel Status Null [facility] LV Impedance 440 ohm [facility] LV Threshold 0.25 V [facility] LV Threshold PW 1.5 ms [facility] Lead Channel Status Null [facility] RV Impedance 600 ohm [facility] R Wave 5.4 mV [facility] RV Threshold 0.75 V [facility] RV Threshold PW 0.5 ms [facility] Battery Date Time of Measurements [id number] [facility] Battery Status Middle of Service [facility] Battery SILK WINDING MACHINE OPERATOR Trigger When current voltage < 2.62 volts [facility] Battery Remaining Longevity 43 mo [facility] Battery Remaining Percentage 48.0 % [facility] Battery Voltage 2.95 V [facility] Capacitor Charge Type Reformation [facility] Capacitor Last Charge Date Time [id number] [facility] Capacitor Charge Time 8.9 s [facility] Capacitor Charge Energy 40 J [facility] Statistic Heart Rate Date Time Start [id number] [facility] Statistic Heart Rate Date Time End [id number] [facility] Statistic Ventricular Heart Rate Min 60 {beats} /min [facility] Statistic Ventricular Heart Rate Mean 80 {beats} /min [facility] Statistic Ventricular Heart Rate Max 200 {beats} /min [facility] Richie Statistic Date Time Start +0000 [facility] Richie Statistic Date Time End +0000 [facility] TRAFFIC CLERK Statistic Date Time Start +0000 [facility] TRAFFIC CLERK Statistic Date Time End +0000 [facility] TRAFFIC CLERK Statistic TRAFFIC CLERK Percent Paced 73.0 % [facility] Atrial Tachy Statistic Date Time Start + [facility] Atrial Tachy Statistic Date Time End + [facility] Therapy Statistic Recent Shocks Delivered 0 [facility] Therapy Statistic Recent Shocks Aborted 0 [facility] Therapy Statistic Recent ATP Delivered 0 [facility] Therapy Statistic Recent Date Time Start +0000 [facility] Therapy Statistic Recent Date Time End +0000 [facility] 11/21/2024 8:20 PM EDT Narrative [facility] - 11/24/2024 10:13 PM EDT Scheduled Quarterly remote transmission: Appropriate VVTR TRAFFIC CLERK-D function. Presenting rhythm: BiVp/VSt ~70s-90s bpm Battery longevity estimate: 3.6 years Episodes: (0) new episodes since in clinic check 11/09/24. Known AF, on Warfarin per [facility] BP 73% (Currently trending ~62%) VST 27% Histograms: HR histogram reveals normal distribution. Available lead measurements are within normal limits and trends are stable. Follow up: Next HF remote 11/24/24. Next Quarterly Remote ~02/20/25. Dear Patient, You may see a lot of technical details in this report. Please be assured that important issues will be identified and someone will contact you if there is any necessary follow up. us Sumit Toledo MD, PhD CV CARDIAC SERVICES ORDERA BLES Final Result [facility] [address] [place] [address] * Comprehensive metabolic panel (12/28/2021 2:29 PM EST) SODIUM 138 133 - 146 mmol/L [facility] POTASSIUM 4.4 3.3 - 5.1 mmol/L [facility] CHLORIDE 99 96 - 108 mmol/L [facility] CO2 29 21 - 35 mmol/L [facility] BUN 18 6 - 19 mg/dL [facility] CREATININE 1.00 0.5 - 1.5 mg/dL [facility] GLUCOSE 70 70 - 99 mg/dL [facility] ALBUMIN 4.1 3.9 - 4.8 g/dL [facility] TOTAL PROTEIN 7.3 6.5 - 8.0 g/dL [facility] CALCIUM 9.4 8.4 - 10.3 mg/dL [facility] ALKALINE PHOSPHATASE 89 39 - 117 U/L [facility] TOTAL BILIRUBIN 0.8 0.0 - 1.2 mg/dL [facility] AST 22 0 - 37 U/L [facility] ALT 12 0 - 40 U/L [facility] GLOBULIN 3.2 1 - 4.8 g/dL [facility] EGFR 79 >59 mL/min/1.7 3m2 [facility] Comment:Estimated glomerular filtration rate calculated using the CKD-EPI refit equation. ANION GAP 14 10 - 20 mmol/L [facility] Blood 12/28/2021 2:29 PM EST 12/28/2021 2:33 PM EST us Gayle Hogan CNP LAB BLOOD ORDERABLES Final Resul t Performing Organization Address City/State/[facility] Co de Phone Number [facility] [address], [place] [phone] * (ABNORMAL) Lipid panel (12/28/2021 2:29 PM EST) HDL 38 mg/dL [facility] Comment: Interpretation <40 mg/dL: Low HDL cholesterol (major risk factor for CHD) Greater than or equal to 60 mg/dL: High HDL cholesterol ( negative risk factor for CHD) HDL - cholesterol is affected by a number of factors, e.g. smoking, excerise, hormones, sex and age. CHOLESTEROL 169 0 - 240 mg/dL [facility] TRIGLYCERIDES 200(H) 30 - 160 mg/dL [facility] LDL 91 50 - 129 mg/dL [facility] Comment: LDL levels in terms of risk for coronary heart disease: <100 mg/dL: Optimal 100-129 mg/dL: Near or above optimal 130-159 mg/dL: Borderline high 160-189 mg/dL: High >190 mg/dL: Very High CARDIAC RISK RATIO 4.4 3.4 - 5.0 C [facility] Blood 12/28/2021 2:29 PM EST 12/28/2021 2:32 PM EST us Gayle Hogan DATA SPECIALIST LAB BLOOD ORDERABLES Final Resul t [facility] [address] [place] [address] from Last 3 Months or Most Recently Relevant to Health Maintenance Insurance Fraxion [facility] Member Subscriber Plan / Payer ( fective 2015-Present) Name:Lenny Caruso Relation to Subscriber:Self Name:Lenny Caruso Payer ID:[id number] (NAIC) Group ID:[id number] Type:[facility] Address: [facility] [address] [place] [address] MEDICARE PART A & B [facility] Member Subscriber Plan / Payer (Ef fective 2015-Present) Name:Lenny Caruso Relation to Subscriber:Self Name:Lenny Caruso Payer ID:[id number] (NAIC) Group ID:[id number] Type:PPO Address: [address] [place] [address] MEDICARE PART A & B Member Subscriber Plan / Payer (Ef fective 2015-Present) Name:Lenny Caruso Relation to Subscriber:Self Name:Lenny Caruso Payer ID:[id number] (NAIC) Group ID:[id number] Type:PPO Address: [facility] [id number] [place] [address] MEDICARE PART A & B [facility] Member Subscriber Plan / Payer (Ef fective 2015-Present) Name:ShadyLenny Jason Relation to Subscriber:Self Name:Lenny Caruso Jason Payer ID:[id number] (NAIC) Group ID:[id number] Type:PPO Address: [address] [place] [address] MEDICARE PART A & B [facility] Member Subscriber Plan / Payer (Ef fective 2015-Present) Name:Shady Lenny Jason Relation to Subscriber:Self Name:ShadyLenny Jason Payer ID:[id number] (NAIC) Group ID:[id number] Type:PPO Address: [address] [place] [address] MEDICARE PART A & B [facility] Member Subscriber Plan / Payer (Ef fective 2015-Present) Name:Lenny Caruso Relation to Subscriber:Self Name:Lenny Caruso Payer ID:[id number] (NAIC) Group ID:[id number] Type:PPO Address: [facility] [id number] [place] [address] MEDICARE PART A & B [facility] Member Subscriber Plan / Payer (Ef fective 2015-Present) Name:Lenny Caruso Relation to Subscriber:Self Name:Lenny Caruso Payer ID:[id number] (NAIC) Group ID:[id number] Type:PPO Address: [address] [place] [address] MEDICARE PART A & B Member Subscriber Plan / Payer (Ef fective 2015-Present) Name:Lenny Caruso Relation to Subscriber:Self Name:Lenny Caruso Payer ID:[id number] (NAIC) Group ID:[id number] Type:PPO Address: [address] [place] [address] MEDICARE PART A & B Member Subscriber Plan / Payer (Ef fective 2015-Present) Name:Lenny Caruso Member ID:[id number] Relation to Subscriber:Self Name:Lenny Caruso Subscriber ID:[id number] Payer ID:[id number] Group ID:Not on file Type:Medicare Address: [employer] [address] [employer] Member Subscriber Plan / Payer (Ef fective 2015-Present) Name:Lenny Caruso Relation to Subscriber:Self Name:Lenny Caruso Payer ID:[id number] (NAIC) Group ID:[id number] Type:PPO Address: [facility] [id number] [place] [address] MEDICARE PART A & B Care Teams Bit Sharpener Relationship Specialty Start Date End Date Eduardo Rutledge MD [address] [place] [address] PCP - General Internal Medicine 06/19/18 Additional Source Comments The information contained in this document represents components of the legal health record. It is not the complete legal health record.[facility]
--- OUTSIDE RECORDS SUMMARY | 2024-12-06 10:29 | XMS_ITS | Encounter Summary ---
Author Organization [facility] Address [facility] [email or web address] [place] [address] Phone Care Team Providers Care Aircraft Armorer Name Role Phone Eduardo Rutledge MD Primary Care Provid er Encounter Details Date Type Department Care Team (Late st Contact Info) Description 12/07/2023 Procedure Pass [facility] Cardiology Division [address] [place] [address], [address] [place] [address] Social History Tobacco Use Types Packs/Day Years [...] st Contact Info) Description 07/09/2024 Procedure Pass [facility] Cardiology Division [address], [address] [place] [address] 08/16/2024 Procedure Pass [facility] Cardiology Division [address], [address] [place] [address] 10/05/2024 Procedure Pass [facility] Cardiology Division [address], [address] [place] [address] 11/09/2024 Procedure Pass [facility] Cardiology Division [address], [address] [place] [address] 11/22/2024 Procedure Pass [facility] Cardiology Division [address], [address] [place] [address] 11/22/2024 Procedure Pass [facility] Cardiology Division [address], [address] [place] [address] 11/26/2024 Procedure Pass [facility] Echo Lab [address] [place] [address] 12/05/2024 Procedure Pass [facility] Cardiology Division [address], [address] [place] [address] 12/05/2024 Procedure Pass [facility] Cardiology Division [address], [address] [place] [address] 12/22/2024 7:00 AM EST Appointment [facility] Cardiology Division [address], [address] [place] [address] Sumit Toledo MD, PhD [address] [place] [address] [email or web address] 01/21/2025 7:00 AM EST Appointment [facility] Cardiology Division [address], [address] [place] [address] Sumit Toledo MD, PhD 55 [facility] [place] [address] [email or web address] 02/21/2025 10:30 AM EST Appointment [facility] Cardiology Division 55 [facility], [address] [place] [address] Sumit Toledo MD, PhD [address] [facility] [place] [address] [email or web address] 05/20/2025 10:30 AM EDT Appointment [facility] Echo Lab [address] [place] [address] Tal Stanley MD [address] [address] [email or web address] 07/12/2025 9:00 AM EDT Appointment [facility] Cardiac EP [address] [facility], 5th Floor, [address] [place] [address] Sumit Toledo MD, PhD [address] [place] [address] [email or web address] 07/12/2025 9:30 AM EDT Office Visit [facility] Cardiac Arrhythmia Service [address] [facility], 5th Floor, [address] [place] [address] Lisa Mccarthy NP [address] [address] [email or web address] 07/12/2025 11:00 AM EDT Office Visit [facility] Heart Failure & Transplantation [address] [facility], 5th Floor, [address] [place] [address] Tal Stanley MD [address] [place] [address] [email or web address] documented as of this encounter Visit Diagnoses Not on filedocumented in this encounter Additional Health Concerns Infection Onset Date Last Indicated Resolved Time CoV-Risk 02/10/2024 02/10/2024 02/21/2024 1:22 AM EST RSV 02/10/2024 02/10/2024 02/17/2024 1:25 AM EST documented as of this encounter Care Teams Aircraft Armorer Relationship Specialty Start Date End Date Eduardo Rutledge MD [address] [place] [address] PCP - General Internal Medicine 06/19/18 documented as of this encounter Additional Source Comments The information contained in this document represents components of the legal health record. It is not the complete legal health record.[facility]
--- OUTSIDE RECORDS SUMMARY | 2024-12-06 10:29 | XMS_ITS | Encounter Summary ---
Author Organization [facility] Address [facility] [address] [place] [address] Phone Care Team Providers Care Cloth Folder Hand Name Role Phone Eduardo Rutledge MD Primary Care Provid er Encounter Details Date Type Department Care Team (Late st Contact Info) Description 03/10/2022 Procedure Pass [facility] Cardiology Division [address] [facility], [address] [place] [address] Social History Tobacco Use Types Packs/Day Years [...] [facility] [address] [facility], [address] [place] [address] 08/16/2024 Procedure Pass [facility] Cardiology Division [address] [address], [address] [place] [address] 10/05/2024 Procedure Pass [facility] Cardiology Division [address], [address] [place] [address] 11/09/2024 Procedure Pass [facility] Cardiology Division [address], [address] [place] [address] 11/22/2024 Procedure Pass [facility] Cardiology Division [address], [address] [place] [address] 11/22/2024 Procedure Pass [facility] Cardiology Division [address] [address], [address] [place] [address] 11/26/[address] [facility] Echo Lab [address] [place] [address] 12/05/2024 Procedure Pass [facility] Cardiology Division [address] [address], [address] [place] [address] 12/05/2024 Procedure Pass [facility] Cardiology Division [address] [address], [address] [place] [address] 12/22/2024 7:00 AM EST Appointment [facility] Cardiology Division [address] [address], [address] [place] [address] Sumit Toledo MD, PhD [address] [place] [address] [email or web address] 01/21/2025 7:00 AM EST Appointment [facility] Cardiology Division [address] [address], [address] [place] [address] Sumit Toledo MD, PhD [address] [place], [place] [address] [address] [email or web address] 02/21/2025 10:30 AM EST Appointment [facility] Cardiology Division [address] [address], [address] [place] [address] Sumit Toledo MD, PhD [address] [facility] [place] [address] [email or web address] 05/20/2025 10:[address] [facility] Echo Lab [address] [place] [address] Tal Stanley MD [address] [address] [email or web address] 07/12/2025 9:00 AM EDT Appointment [facility] Cardiac EP [address] [facility], 5th Floor, [address] [place] [address] Sumit Toledo MD, PhD [address] [place], [place] [address] [address] [email or web address] 07/12/2025 9:30 AM EDT Office Visit [facility] Cardiac Arrhythmia Service [address] [facility], 5th Floor, [address] [place] [address] Lisa Mccarthy NP [address] [address] [email or web address] 07/12/2025 11:00 AM EDT Office Visit [facility] Heart Failure & Transplantation [address] [facility], 5th Floor, [address] [place] [address] Tal Stanley MD [address] [address] [email or web address] documented as of this encounter Visit Diagnoses Not on filedocumented in this encounter Additional Health Concerns Infection Onset Date Last Indicated Resolved Time CoV-Risk 02/10/2024 02/10/202402/2002/21/2024 1:22 AM EST RSV 02/10/2024 02/10/2024 02/17/2024 1:25 AM EST documented as of this encounter Care Teams Cloth Folder Hand Relationship Specialty Start Date End Date Eduardo Rutledge MD [address] [place] [address] PCP - General Internal Medicine 06/19/18 documented as of this encounter Additional Source Comments The information contained in this document represents components of the legal health record. It is not the complete legal health record.[facility]
== END 2024-12-06 09:30 | disposition home or self-care (01) ==
LOC: HO.ACS 09:13
PROVIDERS: PCP Internal Medicine; Visit Provider Internal Medicine Medical Oncology
DX: Z79.01 Long term (current) use of anticoagulants (principal)

== ENCOUNTER → 2024-12-06 09:13 | Outpatient (BNVA) | payer MEDICARE, BC, SELFPAY | PROVIDERS: PCP Internal Medicine; Visit Provider Internal Medicine Medical Oncology | DX: I48.20 Chronic atrial fibrillation, unspecified (principal); Z79.01 Long term (current) use of anticoagulants; Z51.81 Encounter for therapeutic drug level monitoring | CPT/HCPCS: 85610; 99211 ==

== ENCOUNTER 2024-12-26 08:16 | Outpatient (AMB) | payer MEDICARE, BC, SELFPAY ==
--- OUTSIDE RECORDS SUMMARY | 2024-12-23 23:59 | XMS_ITS | Continuity of Care Document ---
Author Organization [facility] Address [address] [place] [address]- Care Team Providers Care Turner Off Name Role Phone Valeriano Douglas MD Primary Care Physician [facility] [id number] Date(s): 11/17/24 - 12/23/24 [facility] [address] [place] [id number] Attending Physician: David Hilliard MD Admitting Physician: David Hilliard MD Referring Physician: Valeriano Douglas MD Encounter Type: Pre-OutPatient One Time Allergies, Adverse Reactions, Alerts Substance Criticality Severity Reaction Reaction Severity Status penicillins Active Medications aspirin 81 mg oral tablet 1 tablet, By Mouth, Daily, # 30 tablet, 0 Refills, Maintenance, 09/28/10 1:19:07 PM EDT, Tablet Start Date: 09/28/10 Status: Ordered Medication Dispense Status: Completed Quantity: 30.0 Unit: tablet Total Allowed Fills: 1 Fills Dispensed: 0 carvedilol 25 mg oral tablet 1 tablet = 25 mg, By Mouth, 2 times a day, 0 Refills, Maintenance, 04/27/11 9:22:07 AM EDT Start Date: 04/27/11 Status: Ordered Medication Dispense Status: Completed Total Allowed Fills: 1 Fills Dispensed: 0 Coumadin Tablet Daily, as dir by PCP, 0 Refills, Maintenance, 04/27/11 9:22:14 AM EDT Start Date: 04/27/11 Status: Ordered Medication Dispense Status: Completed Total Allowed Fills: 1 Fills Dispensed: 0 flecainide 50 mg oral tablet 1 tablet = 50 mg, By Mouth, Every 12 hours, # 60 tablet, 11 Refills, Maintenance, 04/27/11 10:01:57 AM EDT, [id number] Start Date: 04/27/11 Stop Date: 04/21/12 Status: Ordered Medication Dispense Status: Completed Quantity: 60.0 Unit: tablet Total Allowed Fills: 12 Fills Dispensed: 0 Zestril 10 mg oral tablet 1 tablet, By Mouth, Daily, # 30 tablet, 0 Refills, Maintenance, 09/28/10 1:17:26 PM EDT, Tablet Start Date: 09/28/10 Status: Ordered Medication Dispense Status: Completed Quantity: 30.0 Unit: tablet Total Allowed Fills: 1 Fills Dispensed: 0 Problem List Condition Confirmation Course Effective Dates Status H ealth Status Informant Benign Essential Hypertension Confirmed 02/15/11 Active Cardiomyopathy, primary NOS Confirmed 02/15/11 Active Paroxysmal Supraventricular Tachycardia Confirmed 02/15/11 Active Social History Social History Type Response Sex Sex Representation Male (finding) Patient Care team information Care Team Related Persons Name: CHELI SANCHEZ Insurance Providers Guarantor name: LARA Health Plan Information #: 1 Payer: MEDICARE B Payer Identifier: NA Member Number: [id number] Group Number: Subscriber Identifier: Relationship to Subscriber: self Coverage Type: NA Coverage Verification Date: Telecom: Address: Health Plan Information #: 2 Payer: [facility] Payer Identifier: NA Member Number: [id number] Group Number: [id number] Subscriber Identifier: Relationship to Subscriber: self Coverage Type: Medicare Other Coverage Verification Date: Telecom: Address: [facility] Information #: 3 Payer: [facility] Payer Identifier: NA Member Number: [id number] Group Number: Subscriber Identifier: [id number] Relationship to Subscriber: self Coverage Type: NA Coverage Verification Date: Telecom: Address:
--- NOTE | 2024-12-26 08:26 | MHC.OFFVISCO ---
Intake Intake Visit Reasons: Anticoagulation Allergies penicillamine Adverse Reaction (Unknown, Verified 12/26/24 08:22) nausea,vomiting Medication List - Last Reconciled 12/26/24 by Zarina Mcguire RN [ARJUNA PO] ascorbic acid (vitamin C) 1 tab PO DAILY B-complex with vitamin C (Vitamin B Complex C W/B-12) 1 cap PO DAILY digoxin 125 mcg PO DAILY gabapentin PO [glucoasamine sulfate PO] [magnesium PO] metoprolol succinate ER 150 mg (1.5 x 100 mg) PO Q12H [N-acetyl cysteine (NAC) PO] trazodone 50 mg PO BEDTIME PRN vitamin A palmitate 1 cap PO DAILY vitamin E acetate 1 cap PO DAILY warfarin 5 mg See Protocol PO DAILY [ZINC PO] Nursing Note INR: 2.7- in therapeutic range 2-3 Medications and supplements reviewed- no changes No changes in health, diet, medications, or supplements, Denies any signs and symptoms of bleeding or bruising or clotting. Bleeding, bruising, clotting discussed Nutritional guidance given Dose: 5mg x 6, 2.5mg x 1 F/U INR: 4 weeks Patient verbalizes understanding of instructions given to acs acompanied by Anti-Coag Initial Assessment Social Hx Patient Tobacco Use Status: Never used Tobacco alcohol intake: never Questionnaires HAS-BLED Does the patient had uncontrolled Hypertension?: No Does the patient have renal disease?: No Does the patient have liver disease?: No Does the patient have a history of stroke?: No Has the patient had major bleeding or predisposition to bleeding?: No Does the patient have labile INRs?: Yes Is the patient over 65 years of age?: Yes Is the patient on medications that gives them a predisposition to bleeding?: Yes Does the patient use alcohol?: No HAS-BLED Score: 3 CHADSVASC Age: 75 or over Gender: Male Does the patient have a history of CHF?: Yes Does the patient have a history of Hypertension?: Yes Does the patient have a history of Stroke/TIA/Thromboembolism?: No Does the patient have a history of Vascular Disease (prior NV, PAD or aortic plaque)?: Yes (X4 ) Does the patient have a history of Diabetes?: No CHADS VACS Score: 5 Coding Level of Care Code Est Patient Level 1 Diagnoses Current use of anticoagulant therapy Z79.01 Assessment & Plan Assessment & Plan (1) Current use of anticoagulant therapy: Code(s): Z79.01 - ad terminal makeup operator (current) use of 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
[2024-12-26 08:27] LABS: Prothrombin Time Whole Bld POC 32.5 sec (11.1-13.5); ~PT, ~INR - Anti Coag Clinic 2.7 (0.9-1.1)
== END 2024-12-26 08:44 | disposition home or self-care (01) ==
LOC: HO.ACS 08:16
PROVIDERS: PCP Internal Medicine; Visit Provider Internal Medicine Medical Oncology
DX: Z79.01 Long term (current) use of anticoagulants (principal)

== ENCOUNTER → 2024-12-26 08:16 | Outpatient (BNVA) | payer MEDICARE, BC, SELFPAY | PROVIDERS: PCP Internal Medicine; Visit Provider Internal Medicine Medical Oncology | DX: I48.20 Chronic atrial fibrillation, unspecified (principal); Z51.81 Encounter for therapeutic drug level monitoring; Z79.01 Long term (current) use of anticoagulants | CPT/HCPCS: 85610; 99211 ==

== ENCOUNTER 2025-01-24 08:03 | Outpatient (AMB) | payer MEDICARE, BC, SELFPAY ==
--- OUTSIDE RECORDS SUMMARY | 2024-06-18 10:30 | XMS_ITS ---
Author Organization [facility] Address [address] [place] [id number] Care Team Providers Care Mushroom Laborer Name Role Phone Eduardo Rutledge Primary Care Provider [phone] Laurie Dee [phone] Cool Encounters Encounter Location Date Provider Diagnosis [address] [address] 06/18/2024 Laurie Dee Plan Of Treatment Next Appt Details Provider Name:Laurie weiner, 03/15/2025 11:15:00 AM, [address] [place], [address], Progress Notes * Anshul SANCHEZOB:1950 (74 yo M)Acc No.[id number]:06/18/2024 Progress Note Patient: Lenny ROMAN Provider: Jason Dee DPM :1950 A ge:73 Y S ex:Male Date:06/18/2024 Address:[address] [place] [id number] Pcp:Eduardo Rutledge Subjective: * Chief Complaints: * [address] Cool. * Medical History: Objective: * Vitals: Assessment: Plan: * Treatment: * Images: * The named appointment provid er may or may not be the originator of this progress note, and it is not deemed complete until electronically signed by the appointment provider. Sign off status: Pending * Provider: Jason Dee DPM Date: 0 06/18/2024 Generated for Francisco Enrique on: 03/27/2024 08:08 AM EST
--- OUTSIDE RECORDS SUMMARY | 2024-12-06 05:15 | XMS_ITS ---
Author Organization [facility] Address [address] [place] [address] Care Team Providers Care Classified Ad Taker Name Role Phone Eduardo Rutledge Primary Care Provider [phone] Laurie Dee [phone] Encounters Encounter Location Date Provider Diagnosis [address] [address] 12/06/2024 Laurie Dee Plan Of Treatment Next Appt Details Provider Name:Laurie weiner, 03/15/2025 11:15:00 AM, [address] [place], [address], Progress Notes * Anshul CARUSOOB:1950 (74 yo M)Acc No.[id number]:12/06/2024 Progress Notes Patient: Lenny ROMAN Provider: Jason Dee DPM :1950 A ge:74 Y S ex:Male Date:12/06/2024 Address:[address] [place] [phone] Pcp:Eduardo Rutledge Subjective: * Chief Complaints: * * Medical History: Objective: * Vitals: Assessment: Plan: * Treatment: * Images: * The named appointment provid er may or may not be the originator of this progress note, and it is not deemed complete until electronically signed by the appointment provider. Sign off status: Pending * Provider: Jason Dee, DPCalvin Date: 1 Generated for Francisco johnson/Reg/Florentino on: 03/27/2024 08:08 AM EST
--- OUTSIDE RECORDS SUMMARY | 2025-01-24 08:09 | XMS_ITS | Patient Health Record ---
Author Organization [facility] Address [address] [place] [address] Care Team Providers Care Capability Lead Name Role Phone Eduardo Rutledge Primary Care Provider [phone] Laurie Dee Unavailable [phone] Allergies Allergen (clinical drug ingredient) Drug/Non Drug Allergy documented on EMR Reaction Allergy Type Onset Date Status Penicillin Unknown Drug Allergy Active Reason For Referral No Information Medications Medication SIG (Take, Route, Fr equency, Duration) Notes Start Date End Date Status Carvedilol Active traZODone HCl 50 MG TAKE 1 TABLET ORALLY BEDTIME NEEDED FOR SLEEP Oral; Duration: 90 Days Active [employer] 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 to hallux limitus and aquired hallux estensus 09/03/2024 Active Digoxin Active Warfarin Sodium Acti ve Immunizations Vaccine Route Administration Date Status Comme [...] Interpretation Negative Vital Signs Blood pressure diastolic 83 mm Hg 12/26/2024 Height 6ft 3in in 12/26/2024 Blood pressure systolic 120 mm Hg 12/26/2024 Weight 205 lbs 12/26/2024 BMI 25.62 kg/m2 12/26/2024 Encounters Encounter Location Date Provider Diagnosis [address] [address] 03/28/2024 Laurie Dee Neuropathic ulcer of right [...] toe, left M19.072 and Neuropathy G62.[address] [address] 04/30/2024 Laurie Dee Neuropathic ulcer of right foot, limited to breakdown of skin L97.511 ; Other hammer toe(s) (acquired), right foot M20.41 and Neuropathy G62.[address] [address] 09/03/2024 Laurie Reya Other hammer toe(s) (acquired), right foot M20.41 ; Hallux limitus of right foot M20.5X1 ; Neuropathic ulcer of right foot with fat layer exposed L97.512 ; Arthritis of joint of lesser toe, right M19.071 and Neuropathy G62.[address] [address] 10/15/2024 Laurie Perica Hallux limitus of right foot M20.5X1 ; Neuropathic ulcer of right foot with fat layer exposed L97.512 ; Other hammer toe(s) (acquired), right foot M20.41 ; Arthritis of joint of lesser toe, right M19.071 ; Neuropathy G62.9 ; Other hammer toe(s) (acquired), left foot M20.42 and Neuropathic ulcer of left foot with fat layer exposed L97.[address] [address] 12/26/2024 Laurie Perica Hallux limitus of right foot M20.5X1 ; Neuropathic ulcer of right foot with fat layer exposed L97.512 ; Other hammer toe(s) (acquired), right foot M20.41 ; Arthritis of joint of lesser toe, right M19.071 ; Neuropathy G62.9 ; Other hammer toe(s) (acquired), left foot M20.42 ; Pain in right toe(s) M79.674 ; Onychomycosis B35.1 and Pain in left toe(s) M79.[address] [facility] [address] [address] 03/19/2024 Laurie Dee [facility] [address] [address] 04/30/2024 [facility] [address] [address] 10/15/2024 Laurie Dee Assessments Encounter Date Diagnosis (ICD [...] to treatment Resistant to previous conservative treatment 12/26/2024 Hallux limitus of right foot (ICD-10 - M20.5X1) 12/26/2024 Neuropathic ulcer of right foot with fat layer exposed (ICD-10 - L97.512) Response to treatment Improving 12/26/2024 Other hammer toe(s) (acquired), right foot (ICD-10 - M20.41) 10/15/2024 Other hammer toe(s) (acquired), right foot [...] of lesser toe, right (ICD-10 - M19.071) 12/26/2024 Arthritis of joint of lesser toe, right (ICD-10 - M19.071) 12/26/2024 Neuropathy (ICD-10 - G62.9) 10/15/2024 Neuropathy (ICD-10 - G62.9) 09/03/2024 Neuropathy (ICD-10 - G62.9) 03/28/2024 Pain in left toe(s) (ICD-10 - M79.675) 10/15/2024 Other hammer toe(s) (acquired), left foot (ICD-10 - M20.42) 12/26/2024 Other hammer toe(s) (acquired), left foot (ICD-10 - M20.42) 03/28/2024 Arthritis of joint of lesser toe, right (ICD-10 - M19.071) 12/26/2024 Pain in right toe(s) (ICD-10 - M79.674) 10/15/2024 Neuropathic ulcer of left foot with fat layer exposed (ICD-10 - L97.522) 03/28/2024 Other hammer toe(s) (acquired), left foot (ICD-10 - M20.42) 03/28/2024 Arthritis of joint of lesser toe, left (ICD-10 - M19.072) 12/26/2024 Onychomycosis (ICD-10 - B35.1) 12/26/2024 Pain in left toe(s) (ICD-10 - M79.675) 03/28/2024 Neuropathy (ICD-10 - G62.9) 03/28/2024 Other Plan Of Treatment Pending Test Test Name Order Date X ray : Foot, right 3V 03/28/2024 Next Appt Details Provider Name:Laurie weiner, 03/15/2025 11:15:00 AM, [address] [place] [address], [phone], Insurance Providers Payer Name Payer Address Payer Phone Subscriber Number Group Number Insured Name Patient Relationship to Insured Coverage Start Date Coverage End Date Medicare National [employer] [address] [facility] [address] [id number] Lenny Caruso Self - patient is the insured [address] [place] [address] [address] [place] [address] [id number] Lenny Caruso Self - patient is the insured Medical (General) History Medical History History ICD Code Covid 19 Heart Disease Measle Mumps Chicken Pox A fib ICD Device Surgical History Surgery Date(Month/Year) ICD Battery Replacement 2020
[2025-01-24 08:11] LABS: Prothrombin Time Whole Bld POC 21.1 sec (11.1-13.5); ~PT, ~INR - Anti Coag Clinic 1.8 (0.9-1.1)
--- NOTE | 2025-01-24 08:25 | MHC.OFFVISCO ---
Intake Intake Visit Reasons: Anticoagulation Allergies penicillamine Adverse Reaction (Unknown, Verified 01/24/25 08:06) nausea,vomiting Medication List - Last Reconciled 01/24/25 by Angelica Brown RN [ARJUNA PO] ascorbic acid (vitamin C) 1 tab PO DAILY B-complex with vitamin C (Vitamin B Complex C W/B-12) 1 cap PO DAILY digoxin 125 mcg PO DAILY gabapentin PO [glucoasamine sulfate PO] [magnesium PO] metoprolol succinate ER 150 mg (1.5 x 100 mg) PO Q12H [N-acetyl cysteine (NAC) PO] trazodone 50 mg PO BEDTIME PRN vitamin A palmitate 1 cap PO DAILY vitamin E acetate 1 cap PO DAILY warfarin 5 mg See Protocol PO DAILY [ZINC PO] Nursing Note PT.MISSED 1 DOSE THIS WEEK OTHERWISE NO CP,SOB,DIET/MED CHANGES,FALLS OR SX OF BLEEDING. BOOST TO 7.5MG TODAY THEN RESUME USUAL DOSING AND FOLLOW-UP IN 4 WEEKS GOOD UNDERSTANDING OF DOSING INSTR. Anti-Coag Initial Assessment Social Hx Patient Tobacco Use Status: Never used Tobacco alcohol intake: never Coding Level of Care Code Est Patient Level 1 Diagnoses Current use of anticoagulant therapy Z79.01 Assessment & Plan Assessment & Plan (1) Current use of anticoagulant therapy: Code(s): Z79.01 - senior care (current) use of 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
== END 2025-01-24 08:29 | disposition home or self-care (01) ==
LOC: HO.ACS 08:03
PROVIDERS: PCP Internal Medicine; Visit Provider Internal Medicine Medical Oncology
DX: Z79.01 Long term (current) use of anticoagulants (principal)

== ENCOUNTER → 2025-01-24 08:03 | Outpatient (BNVA) | payer MEDICARE, BC, SELFPAY | PROVIDERS: PCP Internal Medicine; Visit Provider Internal Medicine Medical Oncology | DX: I48.20 Chronic atrial fibrillation, unspecified (principal); Z79.01 Long term (current) use of anticoagulants; Z51.81 Encounter for therapeutic drug level monitoring | CPT/HCPCS: 85610; 99211 ==

== ENCOUNTER 2025-01-30 07:51 | Outpatient (REF) | payer MEDICARE, BC, SELFPAY ==
--- OUTSIDE RECORDS SUMMARY | 2015-07-22 13:44 | XMS_ITS | Encounter Summary ---
Author Organization [facility] Address [facility] [address] [place] [address] Phone Care Team Providers Care [employer]bury Mill Operator Name Role Phone Valeriano Dougals MD Primary Care Provider [phone] Encounter Details Date Type Department Care Team (Late st Contact Info) Description 07/22/2015 2:44 PM EDT Hospital Encounter [facility] Pacer Lab 55 [facility], Floor 1, Room [address] [place] [address] Sumit Toledo MD, PhD 55 [facility] [id number] [place] [address] [email or web address] Social History Tobacco Use Types Packs/Day Years Used Date Smoking Tobacco: Never Education Answer Date Recorded Are you interested in more education? Not on mayte e 06/09/2022 Are you concerned about learning? Not on file 06/09/2022 No 06/09/2022 No 06/09/2022 Digital Access Answer Date Recorded No 07/02/2022 No 07/02/2022 Reliable internet access at home? Not on file 07/02/2022 Device with a working camera? Not on file Sex and Gender Information Value Date Recorded Sex Assigned at Male 05/22/2020 9:31 AM EDT Legal Sex Male 6:47 PM EST Gender Identity Male 05/22/2020 9:31 AM EDT Sexual Orientation Straight 05/22/2020 9: 31 AM EDT documented as of this encounter Plan of Treatment Upcoming Encounters Date Type Department Care Team (Late st Contact Info) Description 11/26/2024 Procedure Pass [facility] 30 [place] [address] 02/21/2025 10:30 AM EST Appointment [facility] 55 [facility], [address] [place] [address] uSmit Toledo MD, PhD 55 [facility] [place] [address] [email or web address] 05/20/2025 10:30 AM EDT Appointment [facility] 30 [place] [address] Tal Stanley MD [address] [address] [email or web address] 07/12/2025 9:00 AM EDT Appointment [facility] 32 [facility], 5th Floor, [address] [place] [address] Sumit Toledo MD, PhD 55 [facility] [place] [address] [email or web address] 07/12/2025 9:30 AM EDT Office Visit [facility] Cardiology Arrhythmia Service at the [facility] 32 [facility], 5th Floor, [address] [place] [address] Lisa Mccarthy NP [address] [place] [address] [email or web address] 07/12/2025 11:00 AM EDT Office Visit [facility] Heart Failure and Transplantation Program at the [facility] [address] [facility], 5th Floor, [address] [place] [address] Tal Stanley MD [address] [place] [address] [email or web address] Pending Results Name Type Priority Associated Diagnoses Date /Time EP Device Check / Follow Up Cardiac Services Routine Cardiac arrhythmia, unspecified cardiac arrhythmia type 07/22/2015 2:44 PM EDT Scheduled Orders Name Type Priority Associated Diagnoses Orde r Schedule EP Device Check / Follow Up Cardiac Services Routine Cardiac arrhythmia, unspecified cardiac arrhythmia type As Needed for 1 Occurrences starting 07/22/2015 until 07/22/2015 documented as of this encounter Visit Diagnoses Diagnosis Cardiac arrhythmia, unspecified cardiac arrhythmia type documented in this encounter Additional Health Concerns Infection Onset Date Last Indicated Resolved Time CoV-Risk 02/10/2024 02/10/2024 02/21/2024 1:22 AM EST RSV 02/10/2024 02/10/2024 02/17/2024 1:25 AM EST documented as of this encounter Care Teams [employer] Operator Relationship Specialty Start Date End Date Valeriano Douglas MD [address] [address] PCP - General 08/07/13 02/27/17 documented as of this encounter Additional Source Comments The information contained in this document represents components of the legal health record. It is not the complete legal health record.[facility]
--- OUTSIDE RECORDS SUMMARY | 2015-07-25 14:15 | XMS_ITS | Encounter Summary ---
Author Organization [facility] Address Critical access hospital [facility] [address] [place] [address] Phone Care Team Providers Care Band Edger Name Role Phone Valeriano Douglas MD Primary Care Provider [phone] [phone] Encounter Details Date Type Department Care Team (Late st Contact Info) Description 07/25/2015 3:15 PM EDT Hospital Encounter [facility] Pacer Lab 55 [facility], Floor 1, Room [address] [place] [address] Clint Garcia MD, PhD 55 [facility] [address] [place] [address] [email or web address] Social History Tobacco Use Types Packs/Day Years [...] st Contact Info) Description 11/26/2024 Procedure Pass [facility] [address] [place] [address] 02/21/2025 10:30 AM EST Appointment [facility] 55 [facility], [address] [place] [address] Clint Garcia MD, PhD 55 [facility] [place] [address] [email or web address] 05/20/2025 10:30 AM EDT Appointment [facility] [address] [place] [address] Tal Stanley MD [address] [address] [email or web address] 07/12/2025 9:00 AM EDT Appointment [facility] 32 [facility], 5th Floor, [address] [place] [address] Clint Garcia MD, PhD 55 [facility] [place] [address] [email or web address] 07/12/2025 9:30 AM EDT Office Visit [facility] Cardiology Arrhythmia Service at the [facility] 32 [facility], 5th Floor, [address] [place] [address] Lisa Mccarthy NP 55 [facility] [address] [place] [address] [email or web address] 07/12/2025 11:00 AM EDT Office Visit [facility] Heart Failure and Transplantation Program at the [facility] 32 [facility], 5th Floor, [address] [place] [address] Tal Stanley MD 55 [facility] [address] [place] [address] [email or web address] documented as of this encounter Procedures Procedure Name Priority Date/Time Associated Diagnosis Comments EP DEVICE CHECK / FOLLOW UP Routine 07/25/2015 3:15 PM EDT Cardiac arrhythmia, unspecified cardiac arrhythmia type Cardiomyopathy Persistent atrial fibrillation Presence of automatic implantable cardioverter-defibri llator documented in this encounter Results * EP Device Check / Follow Up (07/25/2015 3:15 PM EDT) 07/25/2015 3:15 AM EDT Narrative [facility] - 07/29/2015 4:25 PM EDT FINAL IMPLANTABLE DEVICE FOLLOW-UP REPORT PATIENT NAME: ANDREW CARUSO Age: 64 : 1950 Initial Implant Date: 06/20/2013 Follow-Up Date/Time: 07/25/2015 02:00:00 PM Nurse: Marychuy Reese R.N. EP Aviation Project Manager: DAYSI FAITH MD Referring MD: CLINT GARCIA Visit Type: ICD Follow-Up Reason For Follow-Up: Scheduled follow-up DIAGNOSES: Cardiomyopathy, unspecified Persistent atrial fibrillation Presence of automatic (implantable) cardiac defibrillator PROCEDURES: ICD Interrogation (in person) ICD Programming, Dual Lead Primary Diagnosis: Cardiomyopathy Today's Rhythm: BiV paced Underlying Rhythm: NSR Battery Status Voltage: 3.8-4.3yrs Charge Time (sec): 9.5 Device / Leads Data: DEVICE DATA: Procedure: Implant Device: Biv icd Date Implanted: 06/20/2013 Core Setter: [employer] Model Name: AMADO TELLORILEY Model Number: [id number] Serial No: [id number] Mode: Ssir Location: Left upper chest LEAD DATA: Date Implanted: 06/20/2013 06/20/2013 Active: Active Active Core Setter: St. Alex St. Alex Model Name: APRIL GAUTHIERCHU Model Number: [id number]-65 [id number]-86 Serial No: [id number] Polarity: Bipolar Bipolar Fixation/Type: Screw-in Tined Lead type: Ventricle Other Chamber: RV Other Position: SEPTUM LATERAL CS Endo/Epicardial: Endocardial Endocardial Insertion Site: Subclavian Subclavian Comment: Pacing: p4 to rv coi External Testing: P or R Wave (mA): 34.6 Threshold (V): 0.3 1.2 Pulse width (msec): 0.5 0.5 Resistance (ohms): 685 556 Device Based Testing: Threshold (V): 0.5 Pulse width (msec): 0.5 Resistance (ohms): 740 HV Impedance (ohms):56 Cathode Anode Can Rv coil ICD SETTINGS: VF Zone: 200. VF Enable: On Monitor Zone (bpm): 171 VF Therapy Settings # Energy Times Waveform Pathway Reconfirm VF Tachycardia (J) After Charge Therapy 1 36 1 No 2 40 5 No Post shock pacing settings Pacing Mode: Vvt. Pacing lower rate (bpm): 70 VT1 Therapy Settings # Therapy Energy Times (J) Counters since last follow-up Delivered Shocks: 0 Aborted Shocks: 0 Delivered ATP: 0 Non Sustained VT Episodes: 0 Counters Total Appropriate Shocks: 0 Non Sustained VT Episodes: 0 ATP Therapy: 0 Spurious ATP: 0 Spurious Shocks: 0 Basic Pacemaker Parameters ICHD/NBG Mode: VVTR Minimum Rate (ppm): 70 Maximum Tracking Rate (ppm): 130 Maximum Sensor Rate (ppm): 120 Comments: Vvtr, atr on RA RV LV Pulse Amplitude (V): 2.5 2.5 Pulse width (msec): 0.5 1.0 Sensitivity (mV): 0.0 V-Refractory Min: 225.0 Max: 250.0 Pace polarity: Bipolar Quadripolar Sense polarity: Bipolar Prox 4-RV coil Comments: Non-ischemic Cardiomyopathy, EF=32%, Chronic AF, LBBB, CHF. Threshold measurement at this follow-up. Capture Method: Manual Pacer Dependent Today: No. Chamber Lead P/RWave Sens. Stim. Pulse Resist- Pacing Type (mV) Polarity Threshold Width ance Polarity RV RV Lead 11.7 Bipolar 1 0.5 450 CS - LV LV Lead Leo - ThresholdAmpPulseWidthResistance polar HV RV Lead 79 Implant Threshold Measurements Chamber Active Date Imp- P/RWave Threshold Pulse Width Resist- lanted (mV) (V) (msec) ance (ohms) RV Active 06/20/2013 0.5 0.5 740 Other Active 06/20/2013 Bradycardia and Tachycardia Episodes Since Counters Cleared LUMBER SCALER(%): 48 VS(%): 8 Counters VHR Detections: 10 Heart Rate Histogram Distribution: Good Programming Comments (10) VT detects. Stored available EGM's shows AF with vent rates @ 176-180 bpm. The longest episode lasted 12 secs on May 28, 2015 Pt is on Warfarin as noted in Catering Assistant. LUMBER SCALER-48%, VSt-45%. Presenting rhythm: BiV paced with intermittent VStrigger pacing @ 70 bpm. Intrinsic rhythm: AF/VS w/vent rates @ 70-100 bpm. HR histograms with good distribution w/rates primarily 50-130 bpm. All ICD measurements are stable. All findings were verbally communicated to Lu Zepeda MD. Pt is scheduled to transmit in November and RTC in March. Next Follow-Up 4 Interrogation completed by: Marychuy Reese R.N. EP Aviation Project Manager: DAYSI FAITH MD This report has been electronically signed by Daysi Faith Procedure Note Vianney Tavarez MD - 07/29/2015 FINAL IMPLANTABLE DEVICE FOLLOW-UP REPORT PATIENT NAME: ANDREW CARUSO Age: 64 : 1950 Initial Implant Date: 06/20/2013 Follow-Up Date/Time: 07/25/2015 02:00:00 PM Nurse: Marychuy Reese R.N. EP Aviation Project Manager: DAYSI FAITH MD Referring MD: CLINT GARCIA Visit Type: ICD Follow-Up Reason For Follow-Up: Scheduled follow-up DIAGNOSES: Cardiomyopathy, unspecified Persistent atrial fibrillation Presence of automatic (implantable) cardiac defibrillator PROCEDURES: ICD Interrogation (in person) ICD Programming, Dual Lead Primary Diagnosis: Cardiomyopathy Today's Rhythm: BiV paced Underlying Rhythm: NSR Battery Status Voltage: 3.8-4.3yrs Charge Time (sec): 9.5 Device / Leads Data: DEVICE DATA: Proced ure: Implant Device: Biv icd Date Implanted: 06/20/2013 Core Setter: [employer] Model Name: AMADO BUSH Model Number: [id number] Serial No: [id number] Mode: Ssir Location: Left upper chest LEAD DATA: Date Implanted: 06/20/2013 06/20/2013 Active: Active Active Core Setter: St. Alex St. Alex Model Name: APRIL BETANCUR Model Number: [id number]-65 [id number]-86 Serial No: [id number] Polarity: Bipolar Bipolar Fixation/Type: Screw-in Tined Lead type: Ventricle Other Chamber: RV Other Position: SEPTUM LATERAL CS Endo/Epicardial: Endocardial Endocardial Insertion Site: Subclavian Subclavian Comment: Pacing: p4 to rv coi External Testing: P or R Wave (mA): 34.6 Threshold (V): 0.3 1.2 Pulse width (msec): 0.5 0.5 Resistance (ohms): 685 556 Device Based Testing: Threshold (V): 0.5 Pulse width (msec): 0.5 Resistance (ohms): 740 HV Impedance (ohms):56 Cathode Anode Can Rv coil ICD SETTINGS: VF Zone: 200. VF Enable: On Monitor Zone (bpm): 171 VF Therapy Settings # Energy Times Waveform Pathway Reconfirm VF Tachycardia (J) After Charge Therapy 1 36 1 No 2 40 5 No Post shock pacing settings Pacing Mode: Vvt. Pacing lower rate (bpm): 70 VT1 Therapy Settings # Therapy Energy Times (J) Counters since last follow-up Delivered Shocks: 0 Aborted Shocks: 0 Delivered ATP: 0 Non Sustained VT Episodes: 0 Counters Total Appropriate Shocks: 0 Non Sustained VT Episodes:0 ATP Therapy: 0 Spurious ATP: 0 Spurious Shocks: 0 Basic Pacemaker Parameters ICHD/NBG Mode: VVTR Minimum Rate (ppm): 70 Maximum Tracking Rate (ppm): 130 Maximum Sensor Rate (ppm): 120 Comments: Vvtr, atr on RA RV LV Pulse Amplitude (V): 2.5 2.5 Pulse width (msec): 0.5 1.0 Sensitivity (mV): 0.0 V-Refractory Min: 225.0 Max: 250.0 Pace polarity: Bipolar Quadripolar Sense polarity: Bipolar Prox 4-RV coil Comments: Non-ischemic Cardiomyopathy, EF=32%, Chronic AF, LBBB, CHF. Threshold measurement at this follow-up. Capture Method: Manual Pacer Dependent Today: No. Chamber Lead P/RWave Sens. Stim. Pulse Resist- Pacing Type (mV) Polarity Threshold Width ance Polarity RV RV Lead 11.7 Bipolar 1 0.5 450 CS - LV LV Lead Leo - ThresholdAmpPulseWidthResistance polar HV RV Lead 79 Implant Threshold Measurements Chamber Active Date Imp- P/RWave Threshold Pulse Width Resist- lanted (mV) (V) (msec) ance(ohms) RV Active 06/20/2013 0.5 0.5 740 Other Active 06/20/2013 Bradycardia and Tachycardia Episodes Since Counters Cleared LUMBER SCALER(%): 48 VS(%): 8 Counters VHR Detections: 10 Heart Rate Histogram Distribution: Good Programming Comments (10) VT detects. Stored available EGM's shows AF with vent rates @ 176-180bpm. The longest episode lasted 12 secs on May 28, 2015 Pt is on Warfarin asnoted in Catering Assistant. LUMBER SCALER-48%, VSt-45%. Presenting rhythm: BiV paced withintermittent VStrigger pacing @ 70 bpm. Intrinsic rhythm: AF/VS w/vent rates @ 70-100bpm. HR histograms with good distribution w/rates primarily 50-130 bpm. All ICD measurements are stable. All findings were verbally communicated to Lu Zepeda MD. Pt is scheduled to transmit in November and RTC in March. Next Follow-Up 4 Interrogation completed by: Mraychuy Reese R.N. EP Aviation Project Manager: DAYSI FAITH MD This report has been electronically signed by Daysi Faith Clint Garcia MD, PhD [facility] C[facility] ORDERA BLES Final Result [facility] [address] [place] [address] documented in this encounter Visit Diagnoses Diagnosis Cardiac arrhythmia, unspecified cardiac arrhythmia type Cardiomyopathy Other primary cardiomyopathies Persistent atrial fibrillation Atrial fibrillation Presence of automatic implantable cardioverter-defibrillator documented in this encounter Additional Health Concerns Infection Onset Date Last Indicated Resolved Time CoV-Risk 02/10/2024 02/10/2024 02/21/2024 1:22 AM EST RSV 02/10/2024 02/10/2024 02/17/2024 1:25 AM EST documented as of this encounter Care Teams Band Edger Relationship Specialty Start Date End Date Valeriano Douglas MD [address] [address] PCP - General 08/07/13 02/27/17 documented as of this encounter Additional Source Comments The information contained in this document represents components of the legal health record. It is not the complete legal health record.[facility]
--- OUTSIDE RECORDS SUMMARY | 2015-10-22 14:54 | XMS_ITS | Encounter Summary ---
Author Organization [facility] Address [facility] [address] [place] [address] Phone Care Team Providers Care Feeder Associate Name Role Phone Valeriano Douglas MD Primary Care Provider [phone] [phone] Encounter Details Date Type Department Care Team (Late st Contact Info) Description 10/22/2015 3:54 PM EDT Hospital Encounter [facility] Pacer Lab 55 [facility], Floor 1, Room [address] [place] [address] Sumit Toledo MD, PhD 55 [facility] [address] [place] [address] [email or web address] Social History [...] st Contact Info) Description 11/26/2024 Procedure Pass [employer] Echo Lab [address] [place] [address] 02/21/2025 10:30 AM EST Appointment [facility] Cardiology Division 55 [facility], [address] [place] [address] Sumit Toledo MD, PhD 55 [facility] [place] [address] [email or web address] 05/20/2025 10:30 AM EDT Appointment [employer] Echo Lab [address] [place] [address] Tal Stanley MD [address] [address] [email or web address] 07/12/2025 9:00 AM EDT Appointment [facility] Cardiac EP 32 [facility], 5th Floor, [address] [place] [address] Sumit Toledo MD, PhD 55 [facility] [place] [address] [email or web address] 07/12/2025 9:30 AM EDT Office Visit [facility] Cardiology Arrhythmia Service at the [facility] 32 [facility], 5th Floor, [address] [place] [address] Lisa Mccarthy NP [address] [place] [address] [email or web address] 07/12/2025 11:00 AM EDT Office Visit [facility] Heart Failure and Transplantation Program at the [facility] [address] [facility], 5th Floor, [address] [place] [address] Tal Stanley MD [address] [place] [address] [email or web address] Pending Results Name Type Priority Associated Diagnoses Date /Time EP Device Check / Follow Up Cardiac Services Routine Cardiac arrhythmia, unspecified cardiac arrhythmia type 10/22/2015 3:54 PM EDT Scheduled Orders Name Type Priority Associated Diagnoses Orde r Schedule EP Device Check / Follow Up Cardiac Services Routine Cardiac arrhythmia, unspecified cardiac arrhythmia type As Needed for 1 Occurrences starting 10/22/2015 until 10/22/2015 documented as of this encounter Visit Diagnoses Diagnosis Cardiac arrhythmia, unspecified cardiac arrhythmia type documented in this encounter Additional Health Concerns Infection Onset Date Last Indicated Resolved Time CoV-Risk 02/10/2024 02/10/2024 02/21/2024 1:22 AM EST RSV 02/10/2024 02/10/2024 02/17/2024 1:25 AM EST documented as of this encounter Care Teams Feeder Associate Relationship Specialty Start Date End Date Valeriano Douglas MD [address] [address] PCP - General 08/07/13 02/27/17 documented as of this encounter Additional Source Comments The information contained in this document represents components of the legal health record. It is not the complete legal health record.[facility]
--- OUTSIDE RECORDS SUMMARY | 2016-02-11 12:11 | XMS_ITS | Encounter Summary ---
Author Organization Formerly [facility] Address [facility] [address] [place] [address] Phone Care Team Providers Care Chief Development Officer Name Role Phone Valeriano Douglas MD Primary Care Provider [phone] Encounter Details Date Type Department Care Team (Late st Contact Info) Description 02/11/2016 12:11 PM EST Hospital Encounter [facility] Pacer Lab 55 [facility], Floor 1, [address] [place] [address] Clint Garcia MD, PhD 55 [facility] [address] [place] [address] [email or web address] Social History Tobacco Use Types [...] st Contact Info) Description 11/26/2024 Procedure Pass [facility] Echo [facility] [address] [place] [address] 02/21/2025 10:30 AM EST Appointment [facility] 55 [facility], [address] [place] [address] Clint Garcia MD, PhD 55 [facility] [place] [address] [email or web address] 05/20/2025 10:30 AM EDT Appointment [facility] [address] [place] [address] Tal Stanley MD [address] [address] [email or web address] 07/12/2025 9:00 AM EDT Appointment [facility]iac EP 32 [facility], 5th Floor, [address] [place] [address] Clint Garcia MD, PhD 55 [facility] [place] [address] [email or web address] 07/12/2025 9:30 AM EDT Office Visit [facility] Cardiology Arrhythmia Service at the [facility] 32 [facility], 5th Floor, [address] [place] [address] Lisa Mccarthy NP 55 [facility] [address] [place] [address] [email or web address] 07/12/2025 11:00 AM EDT Office Visit [facility] Heart Failure and Transplantation Program at the [facility] [address] [facility], 5th Floor, [address] [place] [address] Tal Stanley MD 55 [address] [facility] [address] [place] [address] [email or web address] documented as of this encounter Procedures Procedure Name Priority Date/Time Associated Diagnosis Comments EP DEVICE CHECK / FOLLOW UP Routine 02/11/2016 12:11 PM EST Cardiac arrhythmia, unspecified cardiac arrhythmia type Cardiomyopathy Persistent atrial fibrillation Automatic implantable cardioverter-defibri llator in situ documented in this encounter Results * EP Device Check / Follow Up (02/11/2016 12:11 PM EST) 02/11/2016 12:1 1 PM EST Narrative [facility] - 03/17/2016 4:12 PM EST FINAL IMPLANTABLE DEVICE FOLLOW-UP REPORT PATIENT NAME: ANDREW CARUSO Age: 65 : 1950 Initial Implant Date: 06/20/2013 Follow-Up Date/Time: 02/13/2016 02:00:00 PM Nurse: Marychuy Reese R.N. EP Forestry Contractor: CLAUDY DOAN MD Referring MD: CLINT GARCIA Visit Type: ICD Follow-Up Reason For Follow-Up: Scheduled follow-up DIAGNOSES: Cardiomyopathy, unspecified Persistent atrial fibrillation Presence of automatic (implantable) cardiac defibrillator PROCEDURES: ICD Interrogation (in person) ICD Programming, Dual Lead Primary Diagnosis: Cardiomyopathy Today's Rhythm: BiV paced Underlying Rhythm: NSR Battery Status Voltage: 3.3-3.7yrs Charge Time (sec): 9.5 Device / Leads Data: DEVICE DATA: Procedure: Implant Device: Biv icd Date Implanted: 06/20/2013 Reactor Service Operator: [employer] Model Name: AMADO TELLORILEY Model Number: [id number] Serial No: [id number] Mode: Ssir Location: Left upper chest LEAD DATA: Date Implanted: 06/20/2013 06/20/2013 Active: Active Active Reactor Service Operator: [employer]. [employer] St[employer] Alex Model Name: APRIL GAUTHIERCHU Model Number: 7122Q-65 1458Q-86 Serial No: [id number] Polarity: Bipolar Bipolar Fixation/Type: Screw-in Tined Lead [...] ance Polarity RV RV Lead 11.7 Bipolar 0.75 0.5 410 CS - LV LV Lead Leo - ThresholdAmpPulseWidthResistance polar HV RV Lead 77 Implant Threshold Measurements Chamber Active Date Imp- P/RWave Threshold Pulse Width Resist- lanted (mV) (V) (msec) ance (ohms) RV Active 06/20/2013 0.5 0.5 740 Other Active 06/20/2013 Bradycardia and Tachycardia Episodes Since Counters Cleared ROLL TESTER(%): 54 Counters Heart Rate Histogram Distribution: Good Programming Comments No VT/VF detects. St Pt with chronic AF on Warfarin as noted in Financial Services Specialist. BiVP- 54% increased from 48% snce 07/25/15, VSt-36%. Presenting rhythm: BiV paced @ 70 bpm with intermittent VStrigger pacing. Intrinsic rhythm: AF/VS w/vent rates @ 70-100 bpm. HR histograms with good distribution w/rates primarily 70-130 bpm with few binned rates from 130-220 bpm range. All ICD measurements are WNL. Pts device is on the [place] Advisory Alert. Waylon Peoples, Rep reviewed information and answered questions. Arthur remote monitoring confirmed. Vibratory alert was progammed from 6 secs to 16 secs. Vibratory alert was demonstrated and confirmed by the pt. All findings were verbally communicated to Annelise Campoverde NP who is seeing the pt today. Pt is scheduled to transmit in May and RTC in August. Next Follow-Up 4 months Interrogation completed by: Marychuy Reese R.N. EP Forestry Contractor: CLAUDY DOAN MD This report has been electronically signed by Claudy Doan Procedure Note Yasmin Loco MD, PhD - 03/17/2016 FINAL IMPLANTABLE DEVICE FOLLOW-UP REPORT PATIENT NAME: ANDREW CARUSO Age: 65 : 1950 Initial Implant Date: 06/20/2013 Follow-Up Date/Time: 02/13/2016 02:00:00 PM Nurse: Marychuy Reese R.N. EP Forestry Contractor: CLAUDY DOAN MD Referring MD: CLINT GARCIA Visit Type: ICD Follow-Up Reason For Follow-Up: Scheduled follow-up DIAGNOSES: Cardiomyopathy, unspecified Persistent atrial fibrillation Presence of automatic (implantable) cardiac defibrillator PROCEDURES: ICD Interrogation (in person) ICD Programming, Dual Lead Primary Diagnosis: Cardiomyopathy Today's Rhythm: BiV paced Underlying Rhythm: NSR Battery Status Voltage: 3.3-3.7yrs Charge Time (sec): 9.5 Device / Leads Data: DEVICE DATA: Proced ure: Implant Device: Biv icd Date Implanted: 06/20/2013 Reactor Service Operator: Mister Bell Model Name: AMADO BUSH Model Number: [id number] Serial No: [id number] Mode: Ssir Location: Left upper chest LEAD DATA: Date Implanted: 06/20/2013 06/20/2013 Active: Active Active Reactor Service Operator: [employer] St[employer] Alex Model Name: APRIL BETANCUR Model Number: [id number]-65 [id number]-86 Serial No: [id number] Polarity: Bipolar Bipolar Fixation/Type: Screw-in Tined Lead [...] ance Polarity RV RV Lead 11.7 Bipolar 0.75 0.5 410 CS - LV LV Lead Leo - ThresholdAmpPulseWidthResistance polar HV RV Lead 77 Implant Threshold Measurements Chamber Active Date Imp- P/RWave Threshold Pulse Width Resist- lanted (mV) (V) (msec) ance(ohms) RV Active 06/20/2013 0.5 0.5 740 Other Active 06/20/2013 Bradycardia and Tachycardia Episodes Since Counters Cleared ROLL TESTER(%): 54 Counters Heart Rate Histogram Distribution: Good Programming Comments No VT/VF detects. 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 Presenting rhythm: BiV paced@ 70 bpm with intermittent VStrigger pacing. Intrinsic rhythm: AF/VS w/ventrates @ 70-100 bpm. HR histograms with good distribution w/rates primarily 70-130bpm with few binned rates from 130-220 bpm range. All ICD measurements areWNL. Pts device is on the [place] Advisory Alert. Waylon Peoples, Rep reviewedinformation and answered questions. [place] remote monitoring confirmed. Vibratoryalert was progammed from 6 secs to 16 secs. Vibratory alert was demonstrated andconfirmed by the pt. All findings were verbally communicated to Annelise Campoverde NP whois seeing the pt today. Pt is scheduled to transmit in May and RTC inJuly. Next Follow-Up 4 months Interrogation completed by: Marychuy Reese R.N. EP Forestry Contractor: CLAUDY DOAN MD This report has been electronically signed by Claudy Doan us Clint Garcia MD, PhD CV CARDIAC SERVICES ORDERA BLES Final Result [facility] [address] [place] [address] documented in this encounter Visit Diagnoses Diagnosis Cardiac arrhythmia, unspecified cardiac arrhythmia type Cardiomyopathy Other primary cardiomyopathies Persistent atrial fibrillation Atrial fibrillation Automatic implantable cardioverter-defibrillator in situ documented in this encounter Additional Health Concerns Infection Onset Date Last Indicated Resolved Time CoV-Risk 02/10/2024 02/10/2024 02/21/2024 1:22 AM EST RSV 02/10/2024 02/10/2024 02/17/2024 1:25 AM EST documented as of this encounter Care Teams Chief Development Officer Relationship Specialty Start Date End Date Valeriano Douglas MD [address] [address] PCP - General 08/07/13 02/27/17 documented as of this encounter Additional Source Comments The information contained in this document represents components of the legal health record. It is not the complete legal health record.[facility]
--- OUTSIDE RECORDS SUMMARY | 2024-02-06 09:27 | XMS_ITS | Encounter Summary ---
Author Organization [facility] Address [facility] [address] [place] [address] Phone Care Team Providers Care Golf Manager Name Role Phone Eduardo Rutledge MD Primary Care Provid er Encounter Details Date Type Department Care Team (Late st Contact Info) Description 02/06/2024 9:27 AM EST Hospital Encounter [facility] [address] [place] [address], [address] [place] [address] Sumit Toledo MD, PhD [address] [place] [id number] [place] [address] [email or web address] Social History Tobacco Use [...] st Contact Info) Description 11/26/2024 Procedure Pass [facility] [address] [place] [address] 02/21/2025 10:30 AM EST Appointment [facility] Cardiology Division [address] [facility], [address] [place] [address] Sumit Toledo MD, PhD [address] [place] [id number] [email or web address] 05/20/2025 10:30 AM EDT Appointment [facility] [address] [place] [address] Tal Stanley MD [address] [address] [email or web address] 07/12/2025 9:00 AM EDT Appointment [facility] [address] [facility], 5th Floor, [address] [place] [address] Sumit Toledo MD, PhD [address] [place], [place] [id number] [place] [address] [email or web address] 07/12/2025 9:30 AM EDT Office Visit [facility]iology Arr[facility]ia [facility] at [facility] [address] [facility], 5th Floor, [address] [place] [address] Lisa Mccarthy NP [address] [place] [address] [email or web address] 07/12/2025 11:00 AM EDT Office Visit [facility] Heart Failure and Transplantation Program at [facility] [address] [facility], 5th Floor, [address] [place], [place] [phone] Tal Stanley MD [address] [facility] [address] [place] [address] [email or web address] documented as of this encounter Procedures Procedure Name Priority Date/Time Associated Diagnosis Comments CIED ALERT Routine 02/05/2024 2:00 AM EST Presence of cardiac defibrillator documented in this encounter Results * CIED ALERT (02/05/2024 2:00 AM EST) Date Time Interrogation Session [id number] [facility] Implantable Pulse Generator Insurance Underwriter [employer] [facility] Implantable Pulse Generator Model [id number] [place] [facility] Implantable Pulse Generator Serial Number [id number] [facility] Type Interrogation Session Remote Device Initiated [facility] Re-programmed During Session NO [facility] Clinic Name Arrhythmia Device Clinic [facility] Implantable Pulse Generator Type Cardiac Resynchronization Therapy - Defibrillator [facility] Generator Implant Date [id number] [facility] Implantable Lead Insurance Underwriter [employer] [facility] Implantable Lead Model [id number] Quartet [facility] Implantable Lead Serial Number [id number] [facility] Implantable Lead Implant Date [id number] [facility] Implantable Lead Polarity Type Quadripolar Lead [facility] Implantable Lead Location Detail 1 UNKNOWN [facility] Implantable Lead Special Function Implant [facility] Implantable Lead Location Left Atrium [facility] Implantable Lead Insurance Underwriter [employer] [facility] Implantable Lead Model [id number] Durata SJ4 [facility] Implantable Lead Serial Number [id number] [facility] Implantable Lead Implant Date 20130620 [facility] Implantable Lead Polarity Type Tripolar Lead [facility] Implantable Lead Special Function Implant [facility] Implantable Lead Location Right Ventricle [facility] Richie Setting Mode (NBG Code) VVTR [facility] Richie Setting Lower Rate Limit 70 {beats} /min [facility] Richie Setting Maximum Sensor Rate 120 {beats} /min [facility] Lead Channel Setting Sensing Polarity Bipolar [facility] Lead Channel Setting Sensing Polarity Bipolar [facility] Lead Channel Setting Sensing Anode Location Right Ventricle [facility] Lead Channel Setting Sensing Anode Terminal Ring [facility] Lead Channel Setting Sensing Cathode Location Right Ventricle [facility] Lead Channel Setting Sensing Cathode Terminal Tip [facility] Lead Channel Setting Sensing Sensitivity 0.3 mV [facility] Lead Channel Setting Sensing Adaptation Mode Adaptive [facility] Ventricular chambers paced during WAREHOUSE ANALYST pacing. BiV [facility] WAREHOUSE ANALYST LV-RV Delay 20 ms [facility] Lead Channel Setting Pacing Polarity Bipolar [facility] Lead Channel Setting Pacing Polarity Bipolar [facility] Lead Channel Setting Pacing Anode Location Right Ventricle [facility] Lead Channel Setting Pacing Anode Terminal Ring [facility] Lead Channel Setting Sensing Cathode Location Right Ventricle [facility] Lead Channel Setting Sensing Cathode Terminal Tip [facility] Lead Channel Setting Pacing Pulse Width 0.5 ms [facility] Lead Channel Setting Pacing Amplitude 2.0 V [facility] Lead Channel Setting Pacing Capture Mode Fixed Pacing [facility] Lead Channel Setting Pacing Polarity Bipolar [facility] Lead Channel Setting Pacing Pulse Width 1.5 ms [facility] Lead Channel Setting Pacing Amplitude 0.75 V [facility] Lead Channel Setting Pacing Capture Mode Fixed Pacing [facility] Zone Setting Type Category VF [facility] Zone Setting Vendor Type Category VF [facility] Zone Setting Status Active [facility] Zone Setting Detection Interval 300 ms [facility] Zone Setting Type Category VT [facility] Zone Setting Vendor Type Category VT2 [facility] Zone Setting Status Inactive [facility] Zone Setting Type Category VT [facility] Zone Setting Vendor Type Category VT1 [facility] Zone Setting Status Monitor [facility] Zone Setting Detection Interval 350 ms [facility] Lead Channel Status Null [facility] LV Impedance 440 ohm [facility] LV Threshold 0.25 V [facility] LV Threshold PW 1.5 ms [facility] Lead Channel Status Null [facility] RV Impedance 510 ohm [facility] R Wave 5.8 mV [facility] RV Threshold 0.75 V [facility] RV Threshold PW 0.5 ms [facility] Battery Date Time of Measurements [id number] [facility] Battery Status Middle of Service [facility] Battery REFRIGERATION INSTALLER Trigger When current voltage < 2.62 volts [facility] Battery Remaining Longevity 52 mo [facility] Battery Remaining Percentage 57.0 % [facility] Battery Voltage 2.95 V [facility] Capacitor Charge Type Reformation [facility] Capacitor Last Charge Date Time [id number] [facility] Capacitor Charge Time 8.9 s [facility] Capacitor Charge Energy 40 J [facility] Statistic Heart Rate Date Time Start + [facility] Statistic Heart Rate Date Time End +0000 [facility] Statistic Ventricular Heart Rate Min 70 {beats} /min [facility] Statistic Ventricular Heart Rate Mean 84 {beats} /min [facility] Statistic Ventricular Heart Rate Max 240 {beats} /min [facility] Richie Statistic Date Time Start +0000 [facility] Richie Statistic Date Time End +0000 [facility] WAREHOUSE ANALYST Statistic Date Time Start +0000 [facility] WAREHOUSE ANALYST Statistic Date Time End +0000 [facility] WAREHOUSE ANALYST Statistic WAREHOUSE ANALYST Percent Paced 57.0 % [facility] Atrial Tachy Statistic Date Time Start + [facility] Atrial Tachy Statistic Date Time End +0000 [facility] Therapy Statistic Recent Shocks Delivered 0 [facility] Therapy Statistic Recent Shocks Aborted 0 [facility] Therapy Statistic Recent ATP Delivered 0 [facility] Therapy Statistic Recent Date Time Start [id number] [facility] Therapy Statistic Recent Date Time End [id number] [facility] Episode Statistic Recent Count 6 [facility] Episode Statistic Type Category VT [facility] Episode Statistic Vendor Type Category Non-sustained VT [facility] Episode Statistic Recent Date Time Start [id number] [facility] Episode Statistic Recent Date Time End +0000 [facility] Episode Identifier [id number] [facility] Episode Type Category VT [facility] Episode Vendor Type Category Non-sustained [place] [facility] Episode Date Time [id number] [facility] Episode Duration 8 s [facility] 02/05/2024 2:00 AM EST Narrative [facility] - 02/06/2024 2:57 PM EST Alert (VVTR) WAREHOUSE ANALYST-D transmission: Alert report for acute decrease in BiV Percent Pacing and (1) HVR episode recorded since last remote on 01/07/24. Overall BP 57% since 10/21/23, currently trending ~5% with increase in daily HR noted (trending ~105 bpm) per DirectTrend Report. HVR episode recorded on 02/03 suggestive of RVR @ 180s bpm, recorded for 8 seconds. Ongoing at onset/termination of EGM. Known AF, on warfarin & carvedilol per [facility] Presenting Rhythm: VST/BP 70s-130s bpm w/ suggested ectopy Programmed VVTR, BiVP 57% (overall 63%), VSt 42% (overall 36%) Dr. Toledo, Lisa Mccarthy DIRECTOR OF GLOBAL MARKETING, and Evie Kim DIRECTOR OF GLOBAL MARKETING updated Next Monthly Remote 02/07/24 Sumit oTledo MD, PhD [facility] Final Result [address] [address] documented in this encounter Visit Diagnoses Diagnosis Presence of cardiac defibrillator documented in this encounter Additional Health Concerns Infection Onset Date Last Indicated Resolved Time CoV-Risk 02/10/2024 02/10/2024 02/21/2024 1:22 AM EST RSV 02/10/2024 02/10/2024 02/17/2024 1:25 AM EST documented as of this encounter Care Teams Golf Manager Relationship Specialty Start Date End Date Eduardo Rutledge MD [address] [place] [id number] PCP - General Internal Medicine 06/19/18 documented as of this encounter Additional Source Comments The information contained in this document represents components of the legal health record. It is not the complete legal health record.[facility]
--- OUTSIDE RECORDS SUMMARY | 2024-06-18 10:30 | XMS_ITS ---
Author Organization [facility] Address [address] [place] [id number] Care Team Providers Care Hotel Housekeeper Name Role Phone Eduardo Rutledge Primary Care Provider Laurie Dee [phone] Cool Encounters Encounter Location Date Provider Diagnosis [address] [address] 06/18/2024 Laurie Dee Plan Of Treatment Next Appt Details Provider Name:Laurie weiner, 03/15/2025 11:15:00 AM, [address] [place], [address], Progress Notes * Anshul SANCHEZOB:1950 (74 yo M)Acc No.[id number]:06/18/2024 Progress Note Patient: Lenny ROMAN Provider: Jason Dee DPM :1950 A ge:73 Y S ex:Male Date:06/18/2024 Address:[address] [place] [phone] Pcp:Eduardo Rutledge Subjective: * Chief Complaints: * [...] 0 06/18/2024 Generated for Francisco Enrique on: 04/02/2024 08:00 AM EST
--- OUTSIDE RECORDS SUMMARY | 2024-12-06 05:15 | XMS_ITS ---
Author Organization [facility] Address [address] [place] [address] Care Team Providers Care Underwear Finisher Name Role Phone Eduardo Rutledge Primary Care Provider Laurie Dee [phone] Encounters Encounter Location Date Provider Diagnosis [address] [address] 12/06/2024 Laurie Dee Plan Of Treatment Next Appt Details Provider Name:Laurie weiner, 03/15/2025 11:15:00 AM, [address] [place], [address], Progress Notes * Anshul CARUSOOB:1950 (74 yo M)Acc No.[id number]:12/06/2024 Progress Notes Patient: Lenny ROMAN Provider: Jason Dee DPM :1950 A ge:74 Y S ex:Male Date:12/06/2024 Address:[address] [place] [phone] Pcp:Eduardo Rutledge Subjective: * Chief Complaints: * [...] Date: 1 Generated for Francisco johnson/Reg/Florentino on: 04/02/2024 07:59 AM EST
--- OUTSIDE RECORDS SUMMARY | 2025-01-30 07:59 | XMS_ITS | Encounter Summary ---
Author Organization [facility] Address [facility] [employer] [address] [address] Phone Care Team Providers Care Shoemaker Apprentice Name Role Phone Eduardo Rutledge MD Primary Care Provid er Encounter Details Date Type Department Care Team (Late st Contact Info) Description 09/09/2022 Procedure Pass [facility] [address] [place] [address] Social History Tobacco Use Types Packs/Day Years [...] Contact Info) Description 11/26/2024 Procedure Pass [facility] [facility] [address] [place] [address] 02/21/2025 10:30 AM EST Appointment [place] [facility] [address] [facility], [address] [place] [address] Sumit Toledo MD, PhD 55 [facility] [place] [address] [email or web address] 05/20/2025 10:30 AM EDT Appointment [facility] [address] [place] [address] Tal Stanley MD [address] [address] [email or web address] 07/12/2025 9:00 AM EDT Appointment [facility] 32 [facility], 5th Floor, [address] [place] [address] Sumit Toledo MD, PhD 55 [facility] [place] [address] [email or web address] 07/12/2025 9:30 AM EDT Office Visit [facility] Cardiology Arrhythmia Service at the [facility] 32 [facility], 5th Floor, [address] [place] [address] Lisa Mccarthy NP [address] [address] [email or web address] 07/12/2025 11:00 AM EDT Office Visit [facility] Heart Failure and Transplantation Program at the [facility] [address] [facility], 5th Floor, [address] [place] [address] Tal Stanley MD 55 [address] [facility] [address] [place] [address] [email or web address] documented as of this encounter Visit Diagnoses Not on filedocumented in this encounter Additional Health Concerns Infection Onset Date Last Indicated Resolved Time CoV-Risk 02/10/2024 02/10/2024 02/21/2024 1:22 AM EST RSV 02/10/2024 02/10/2024 02/17/2024 1:25 AM EST documented as of this encounter Care Teams Shoemaker Apprentice Relationship Specialty Start Date End Date Eduardo Rutledge MD [address] [place] [address] PCP - General Internal Medicine 06/19/18 documented as of this encounter Additional Source Comments The information contained in this document represents components of the legal health record. It is not the complete legal health record.[facility]
--- OUTSIDE RECORDS SUMMARY | 2025-01-30 07:59 | XMS_ITS | Encounter Summary ---
Author Organization [facility] Address [facility] [address] [place] [address] Phone Care Team Providers Care Folding Rules Printing Machine Operator Name Role Phone Eduardo Rutledge MD Primary Care Provid er Encounter Details Date Type Department Care Team (Late st Contact Info) Description 06/08/2023 Procedure Pass [facility] 55 [facility], [address] [place] [address] Social History Tobacco Use Types Packs/Day Years [...] st Contact Info) Description 11/26/2024 Procedure Pass [facility] [address] [place] [address] 02/21/2025 10:30 AM EST Appointment [facility] 55 [facility], [address] [place] [address] Sumit Toledo MD, PhD 55 [facility] [place] [address] [email or web address] 05/20/2025 10:30 AM EDT Appointment [facility] [address] [place] [address] Tal Stanley MD [address] [address] [email or web address] 07/12/2025 9:00 AM EDT Appointment [facility] Cardiac EP 32 [facility], 5th Floor, [address] [place] [address] Sumit Toledo MD, PhD 55 [facility] [place] [address] [email or web address] 07/12/2025 9:30 AM EDT Office Visit [facility] Cardiology Arrhythmia Service at the [facility] 32 [facility], 5th Floor, [address] [place] [address] Lisa Mccarthy NP [address] [address] [email or web address] 07/12/2025 11:00 AM EDT Office Visit [facility] Heart Failure and Transplantation Program at the [facility] [place] [address] [facility], 5th Floor, [address] [place] [address] Tal Stanley MD [address] [facility] [address] [place] [address] [email or web address] documented as of this encounter Visit Diagnoses Not on filedocumented in this encounter Additional Health Concerns Infection Onset Date Last Indicated Resolved Time CoV-Risk 02/10/2024 02/10/2024 02/21/2024 1:22 AM EST RSV 02/10/2024 02/10/2024 02/17/2024 1:25 AM EST documented as of this encounter Care Teams Folding Rules Printing Machine Operator Relationship Specialty Start Date End Date Eduardo Rutledge MD [address] [place] [address] PCP - General Internal Medicine 06/19/18 documented as of this encounter Additional Source Comments The information contained in this document represents components of the legal health record. It is not the complete legal health record.[facility]
--- OUTSIDE RECORDS SUMMARY | 2025-01-30 07:59 | XMS_ITS | Encounter Summary ---
Author Organization [facility] Address [facility] [address] [place] [address] Phone Care Team Providers Care Sprinkler Helper Name Role Phone Eduardo Rutledge MD Primary Care Provid er Encounter Details Date Type Department Care Team (Late st Contact Info) Description 03/09/2023 Procedure Pass [facility] 55 [facility], [address] [place] [address] Social History Tobacco Use Types Packs/Day Years [...] st Contact Info) Description 11/26/2024 Procedure Pass [facility] [address] [place] [address] 02/21/2025 10:30 AM EST Appointment [facility] 55 [facility], [address] [place] [address] Sumit Toledo MD, PhD 55 [facility]-[address] [place] [address] [email or web address] 05/20/2025 10:30 AM EDT Appointment [facility] [address] [place] [address] Tal Stanley MD [address] [address] [email or web address] 07/12/2025 9:00 AM EDT Appointment [facility] Cardiac EP 32 [facility], 5th Floor, [address] [place] [address] Sumit Toledo MD, PhD 55 [facility] [place] [address] [email or web address] 07/12/2025 9:30 AM EDT Office Visit [facility] Cardiology Arrhythmia Service at the [facility] 32 [facility], 5th Floor, [address] [place] [address] Lisa Mccarthy NP [address] [address] [email or web address] 07/12/2025 11:00 AM EDT Office Visit [facility] Heart Failure and Transplantation Program at the [facility] 32 [address] [facility], 5th Floor, [address] [place] [address] Tal Stanley MD 55 [facility] [address] [place] [address] [email or web address] documented as of this encounter Visit Diagnoses Not on filedocumented in this encounter Additional Health Concerns Infection Onset Date Last Indicated Resolved Time CoV-Risk 02/10/2024 02/10/2024 02/21/2024 1:22 AM EST RSV 02/10/2024 02/10/2024 02/17/2024 1:25 AM EST documented as of this encounter Care Teams Sprinkler Helper Relationship Specialty Start Date End Date Eduardo Rutledge MD [address] [place] [address] PCP - General Internal Medicine 06/19/18 documented as of this encounter Additional Source Comments The information contained in this document represents components of the legal health record. It is not the complete legal health record.[facility]
--- OUTSIDE RECORDS SUMMARY | 2025-01-30 07:59 | XMS_ITS | Encounter Summary ---
Author Organization [facility] Address [facility] [address] [place] [address] Phone Care Team Providers Care Marble Worker Name Role Phone Eduardo Rutledge MD Primary Care Provid er Reason for Visit * Reason Comments Medication Refill Encounter Details Date Type Department Care Team (Late st Contact Info) Description 12/17/2021 Refill [facility] Heart Failure and Transplantation Program at the [address], 5th Floor, [address] [place] [address] Mirna Moulton MD [address] [place] [address] [place] [address] [email or web address] Medication Refill Social History Tobacco Use [...] Contact Info) Description 11/26/2024 Procedure Pass [facility] [address] [place] [address] 02/21/2025 10:30 AM EST Appointment [place] [facility] 55 [facility], [address] [place] [address] Sumit Toledo MD, PhD 55 [facility] [place] [address] [email or web address] 05/20/2025 10:30 AM EDT Appointment [facility] [facility] [address] [place] [address] Tal Stanley MD [address] [address] [email or web address] 07/12/2025 9:00 AM EDT Appointment [facility] 32 [facility], 5th Floor, [address] [place] [address] Sumit Toledo MD, PhD 55 [facility] [place] [address] [email or web address] 07/12/2025 9:30 AM EDT Office Visit [facility] Cardiology Arrhythmia Service at the [facility] 32 [facility], 5th Floor, [address] [place] [address] Lisa Mccarthy NP [address] [address] [email or web address] 07/12/2025 11:00 AM EDT Office Visit [facility] Heart Failure and Transplantation Program at the [facility] 32 [facility], 5th Floor, [address] [place] [address] Tal Stanley MD 55 [facility] [address] [place] [address] [email or web address] documented as of this encounter Visit Diagnoses Diagnosis Other cardiomyopathy Persistent atrial fibrillation Atrial fibrillation documented in this encounter Additional Health Concerns Infection Onset Date Last Indicated Resolved Time CoV-Risk 02/10/2024 02/10/2024 02/21/2024 1:22 AM EST RSV 02/10/2024 02/10/2024 02/17/2024 1:25 AM EST documented as of this encounter Care Teams Marble Worker Relationship Specialty Start Date End Date Eduardo Rutledge MD [address] [place] [address] PCP - General Internal Medicine 06/19/18 documented as of this encounter Additional Source Comments The information contained in this document represents components of the legal health record. It is not the complete legal health record.[facility]
--- OUTSIDE RECORDS SUMMARY | 2025-01-30 07:59 | XMS_ITS | Encounter Summary ---
Author Organization [facility] Address [facility] [address] [place] [address] Phone Care Team Providers Care Surgery Nurse Name Role Phone Eduardo Rutledge MD Primary Care Provid er Encounter Details Date Type Department Care Team (Late st Contact Info) Description 11/22/2024 Procedure Pass [facility] [address] [place] [address], [address] [place] [address] Social History Tobacco Use Types Packs/Day Years [...] st Contact Info) Description 11/26/2024 Procedure Pass [facility] [address] [place] [address] 02/21/2025 10:30 AM EST Appointment [facility] 55 [facility], [address] [place] [address] Sumit Toledo MD, PhD [facility] [place] [address] [email or web address] 05/20/2025 10:30 AM EDT Appointment [facility] [address] [place] [address] Tal Stanley MD [address] [address] [email or web address] 07/12/2025 9:00 AM EDT Appointment [facility] EP 32 [facility], 5th Floor, [address] [place] [address] Sumit Toledo MD, PhD 55 [facility] [place] [address] [email or web address] 07/12/2025 9:30 AM EDT Office Visit [facility] Cardiology Arrhythmia Service at the [facility] 32 [facility], 5th Floor, [address] [place] [address] Lisa Mccarthy NP [address] [address] [email or web address] 07/12/2025 11:00 AM EDT Office Visit [facility] Heart Failure and Transplantation Program at the [facility] [place] [address] [facility], 5th Floor, [address] [place] [address] Tal Stanley MD 55 [address] [facility] [address] [place] [address] [email or web address] documented as of this encounter Visit Diagnoses Not on filedocumented in this encounter Care Teams Surgery Nurse Relationship Specialty Start Date End Date Eduardo Rutledeg MD [address] [place] [address] PCP - General Internal Medicine 06/19/18 documented as of this encounter Additional Source Comments The information contained in this document represents components of the legal health record. It is not the complete legal health record.[facility]
--- OUTSIDE RECORDS SUMMARY | 2025-01-30 07:59 | XMS_ITS | Encounter Summary ---
Author Organization [facility] Address [facility] [address] [place] [address] Phone Care Team Providers Care Cardiothoracic Physiotherapist Name Role Phone Eduardo Rutledge MD Primary Care Provid er Encounter Details Date Type Department Care Team (Late st Contact Info) Description 01/09/2020 Procedure Pass [place] [facility] [address] [place] [address], [address] [place] [address] Social History Tobacco Use Types Packs/Day Years [...] st Contact Info) Description 11/26/2024 Procedure Pass [facility] [address] [place] [address] 02/21/2025 10:30 AM EST Appointment [place] [facility] [address] [place] [address] [address] [place] [address] Sumit Toledo MD, PhD 55 [facility] [place] [address] [email or web address] 05/20/2025 10:30 AM EDT Appointment [facility] [address] [place] [address] Tal Stanley MD [address] [address] [email or web address] 07/12/2025 9:00 AM EDT Appointment [facility] EP 32 [facility], 5th Floor, [address] [place] [address] Sumit Toledo MD, PhD 55 [facility] [place] [address] [email or web address] 07/12/2025 9:30 AM EDT Office Visit [facility] Cardiology Arrhythmia Service at the [facility] 32 [facility], 5th Floor, [address] [place] [address] Lisa Mccarthy NP [address] [address] [email or web address] 07/12/2025 11:00 AM EDT Office Visit [facility] Heart Failure and Transplantation Program at the [facility] 32 [facility], 5th Floor, [address] [place] [address] Tal Stanley MD [address] [address] [email or web address] documented as of this encounter Visit Diagnoses Not on filedocumented in this encounter Additional Health Concerns Infection Onset Date Last Indicated Resolved Time CoV-Risk 02/10/2024 02/10/2024 02/21/2024 1:22 AM EST RSV 02/10/2024 02/10/2024 02/17/2024 1:25 AM EST documented as of this encounter Care Teams Cardiothoracic Physiotherapist Relationship Specialty Start Date End Date Eduardo Rutledge MD [address] [place] [address] PCP - General Internal Medicine 06/19/18 documented as of this encounter Additional Source Comments The information contained in this document represents components of the legal health record. It is not the complete legal health record.[facility]
--- OUTSIDE RECORDS SUMMARY | 2025-01-30 07:59 | XMS_ITS | Encounter Summary ---
Author Organization [facility] Address [facility] [address] [place] [address] Phone Care Team Providers Care Outreach Representative Name Role Phone Eduardo Rutledge MD Primary Care Provid er Encounter Details Date Type Department Care Team (Late st Contact Info) Description 09/07/2023 Procedure Pass [facility] Cardiac EP 32 [facility], 5th Floor, [address] [place] [address] Social History Tobacco Use Types Packs/Day Years [...] st Contact Info) Description 11/26/2024 Procedure Pass [facility] 30 [place] [address] 02/21/2025 10:30 AM EST Appointment [place] [facility] 55 [facility], [address] [place] [address] Sumit Toledo MD, PhD 55 [facility]-[address] [place] [address] [email or web address] 05/20/2025 10:30 AM EDT Appointment [facility] [employer] [facility] 30 [place] [address] Tal Stanley MD [address] [address] [email or web address] 07/12/2025 9:00 AM EDT Appointment [facility] Cardiac EP 32 [facility], 5th Floor, [address] [place] [address] Sumit Toledo MD, PhD [address] [place], [place] [address] [place] [address] [email or web address] 07/12/2025 9:30 AM EDT Office Visit [facility] Cardiology Arrhythmia Service at the [facility] 32 [facility], 5th Floor, [address] [place] [address] Lisa Mccarthy NP [address] [address] [email or web address] 07/12/2025 11:00 AM EDT Office Visit [facility] Heart Failure and Transplantation Program at the [facility] 32 [address] [facility], 5th Floor, [address] [place] [address] Tal Stanley MD 55 [address] [facility] [address] [place] [address] [email or web address] documented as of this encounter Visit Diagnoses Not on filedocumented in this encounter Additional Health Concerns Infection Onset Date Last Indicated Resolved Time CoV-Risk 02/10/2024 02/10/2024 02/21/2024 1:22 AM EST RSV 02/10/2024 02/10/2024 02/17/2024 1:25 AM EST documented as of this encounter Care Teams Outreach Representative Relationship Specialty Start Date End Date Eduardo Rutledge MD [address] [place] [address] PCP - General Internal Medicine 06/19/18 documented as of this encounter Additional Source Comments The information contained in this document represents components of the legal health record. It is not the complete legal health record.[facility]
--- OUTSIDE RECORDS SUMMARY | 2025-01-30 07:59 | XMS_ITS | Encounter Summary ---
Author Organization [facility] Address [facility] [address] [place] [address] Phone Care Team Providers Care Certified Orthotist Name Role Phone Eduardo Rutledge MD Primary Care Provid er Encounter Details Date Type Department Care Team (Late st Contact Info) Description 04/19/2020 Procedure Pass [facility] [address] [place] [address], [address] [place] [address] Social History Tobacco Use Types Packs/Day Years [...] st Contact Info) Description 11/26/2024 Procedure Pass [employer] [employer] [facility] [address] [place] [address] 02/21/2025 10:30 AM EST Appointment [place] [facility] 55 [facility], [address] [place] [address] Sumit Toledo MD, PhD 55 [facility]-1[address] [place] [address] [email or web address] 05/20/2025 10:30 AM EDT Appointment [facility] [place] [facility] 30 [place] [address] Tal Stanley MD [address] [address] [email or web address] 07/12/2025 9:00 AM EDT Appointment [facility] Cardiac EP 32 [facility], 5th Floor, [address] [place] [address] Sumit Toledo MD, PhD 55 [facility] [place] [address] [email or web address] 07/12/2025 9:30 AM EDT Office Visit [facility] Cardiology Arrhythmia Service at the [facility] 32 [facility], 5th Floor, [address] [place] [address] Lisa Mccarthy NP [address] [address] [email or web address] 07/12/2025 11:00 AM EDT Office Visit [facility] Heart Failure and Transplantation Program at the [facility] 32 [facility], 5th Floor, [address] [place] [address] Tal Stanley MD [address] [address] [email or web address] documented as of this encounter Visit Diagnoses Not on filedocumented in this encounter Additional Health Concerns Infection Onset Date Last Indicated Resolved Time CoV-Risk 02/10/2024 02/10/2024 02/21/2024 1:22 AM EST RSV 02/10/2024 02/10/2024 02/17/2024 1:25 AM EST documented as of this encounter Care Teams Certified Orthotist Relationship Specialty Start Date End Date Eduardo Rutledge MD [address] [place] [address] PCP - General Internal Medicine 06/19/18 documented as of this encounter Additional Source Comments The information contained in this document represents components of the legal health record. It is not the complete legal health record.[facility]
--- OUTSIDE RECORDS SUMMARY | 2025-01-30 07:59 | XMS_ITS | Encounter Summary ---
Author Organization [facility] Address [facility] [address] [place] [address] Phone Care Team Providers Care Oven Laborer Name Role Phone Eduardo Rutledge MD Primary Care Provid er Encounter Details Date Type Department Care Team (Late st Contact Info) Description 08/16/2024 Procedure Pass [place] [facility] 55 [facility], [address] [place] [address] Social History Tobacco Use Types Packs/Day Years [...] st Contact Info) Description 11/26/2024 Procedure Pass [facility] [facility] 30 [place] [address] 02/21/2025 10:30 AM EST Appointment [place] [facility] 55 [facility], [address] [place] [address] Sumit Toledo MD, PhD 55 [facility]-[address] [place] [address] [email or web address] 05/20/2025 10:30 AM EDT Appointment [facility] 30 [place] [address] Tal Stanley MD [address] [address] [email or web address] 07/12/2025 9:00 AM EDT Appointment [facility] Cardiac EP 32 [facility], 5th Floor, [address] [place] [address] Sumit Toledo MD, PhD 55 [facility] [place] [address] [email or web address] 07/12/2025 9:30 AM EDT Office Visit [facility] Cardiology Arrhythmia Service at the [facility] 32 [facility], 5th Floor, [address] [place] [address] Lisa Mccarthy NP [address] [address] [email or web address] 07/12/2025 11:00 AM EDT Office Visit [facility] Heart Failure and Transplantation Program at the [facility] [place] [address] [facility], 5th Floor, [address] [place] [address] Tal Stanley MD 55 [address] [facility] [address] [place] [address] [email or web address] documented as of this encounter Visit Diagnoses Not on filedocumented in this encounter Care Teams Oven Laborer Relationship Specialty Start Date End Date Eduardo Rutledge MD [address] [place] [address] PCP - General Internal Medicine 06/19/18 documented as of this encounter Additional Source Comments The information contained in this document represents components of the legal health record. It is not the complete legal health record.[facility]
--- OUTSIDE RECORDS SUMMARY | 2025-01-30 07:59 | XMS_ITS | Encounter Summary ---
Author Organization [facility] Address [facility] [address] [place] [address] Phone Care Team Providers Care Stem Shaper Name Role Phone Eduardo Rutledge MD Primary Care Provid er Encounter Details Date Type Department Care Team (Late st Contact Info) Description 10/05/2024 Procedure Pass [facility] Cardiac EP 32 [facility], 5th Floor, [address] [place] [address] Social History Tobacco Use Types Packs/Day Years [...] st Contact Info) Description 11/26/2024 Procedure Pass [facility] 30 [place] [address] 02/21/2025 10:30 AM EST Appointment [place] [facility] 55 [facility], [address] [place] [address] Sumit Toledo MD, PhD 55 [facility]-[address] [place] [address] [email or web address] 05/20/2025 10:30 AM EDT Appointment [facility] 30 [place] [address] Tal Stanley MD [address] [address] [email or web address] 07/12/2025 9:00 AM EDT Appointment [facility] Cardiac EP 32 [facility], 5th Floor, [address] [place] [address] Sumit Toledo MD, PhD [address] [place], [place] [address] [place] [address] [email or web address] 07/12/2025 9:30 AM EDT Office Visit [facility] Cardiology Arrhythmia Service at the [facility] 32 [facility], 5th Floor, [address] [place] [address] Lisa Mccarthy NP [address] [address] [email or web address] 07/12/2025 11:00 AM EDT Office Visit [facility] Heart Failure and Transplantation Program at the [facility] [address] [facility], 5th Floor, [address] [place] [address] Tal Stanley MD 55 [address] [facility] [address] [place] [address] [email or web address] [email or web address] documented as of this encounter Visit Diagnoses Not on filedocumented in this encounter Care Teams Stem Shaper Relationship Specialty Start Date End Date Eduardo Rutledge MD [address] [place] [address] PCP - General Internal Medicine 06/19/18 documented as of this encounter Additional Source Comments The information contained in this document represents components of the legal health record. It is not the complete legal health record.[facility]
--- OUTSIDE RECORDS SUMMARY | 2025-01-30 07:59 | XMS_ITS | Patient Health Record ---
Author Organization [facility] Address [address] [place] [address] Care Team Providers Care Radiology Nurse Name Role Phone Eduardo Rutledge Primary Care Provider Laurie Dee Unavailable [phone] Allergies Allergen (clinical drug ingredient) Drug/Non Drug [...] 12/26/2024 Encounters Encounter Location Date Provider Diagnosis [address] [address] 03/28/2024 Laurie Dee Neuropathic ulcer of right [...] lesser toe, left M19.072 and Neuropathy G62.[address] [address] 04/30/2024 Laurie Dee Neuropathic ulcer of right foot, limited to breakdown of skin L97.511 ; Other hammer toe(s) (acquired), right foot M20.41 and Neuropathy G62.[address] [address] 09/03/2024 Laurie Reya Other hammer toe(s) (acquired), right foot M20.41 ; Hallux limitus of right foot M20.5X1 ; Neuropathic ulcer of right foot with fat layer exposed L97.512 ; Arthritis of joint of lesser toe, right M19.071 and Neuropathy G62.[address] [address] 10/15/2024 Laurie Perica Hallux limitus of right foot M20.5X1 ; Neuropathic ulcer of right foot with fat layer exposed L97.512 ; Other hammer toe(s) (acquired), right foot M20.41 ; Arthritis of joint of lesser toe, right M19.071 ; Neuropathy G62.9 ; Other hammer toe(s) (acquired), left foot M20.42 and Neuropathic ulcer of left foot with fat layer exposed L97.[address] [address] 12/26/2024 Laurie Perica Hallux limitus of right foot M20.5X1 ; Neuropathic ulcer of right foot with fat layer exposed L97.512 ; Other hammer toe(s) (acquired), right foot M20.41 ; Arthritis of joint of lesser toe, right M19.071 ; Neuropathy G62.9 ; Other hammer toe(s) (acquired), left foot M20.42 ; Pain in right toe(s) M79.674 ; Onychomycosis B35.1 and Pain in left toe(s) M79.[address] [facility] [address] [address] 03/19/2024 Laurie Dee [facility] [address] [address] 04/30/2024 [facility] [address] [address] 10/15/2024 Laurie Dee Assessments Encounter Date Diagnosis [...] Details Provider Name:Laurie weiner, 03/15/2025 11:15:00 AM, [address] [place] [address], [phone], Insurance Providers Payer Name Payer Address Payer Phone Subscriber Number Group Number Insured Name Patient Relationship to Insured Coverage Start Date Coverage End Date Medicare National [employer] [address] [facility] [place] [address] [id number] Lenny Caruso Self - patient is the insured [address] [place] [address] [address] [place] [address] [id number] Lenny Caruso Self - patient is the insured Medical (General) History Medical History History ICD Code Covid 19 Heart Disease Measle Mumps Chicken Pox A fib ICD Device Surgical History Surgery Date(Month/Year) ICD Battery Replacement 2020
--- OUTSIDE RECORDS SUMMARY | 2025-01-30 07:59 | XMS_ITS | Encounter Summary ---
Author Organization [facility] Address [facility] [address] [place] [address] Phone Care Team Providers Care Broom Man Name Role Phone Eduardo Rutledge MD Primary Care Provid er Encounter Details Date Type Department Care Team (Late st Contact Info) Description 06/26/2021 Procedure Pass [facility] Cardiology Division [address] [place] [address], [address] [place] [address] Social History Tobacco Use Types Packs/Day Years [...] st Contact Info) Description 11/26/2024 Procedure Pass [employer] [facility] [address] [place] [address] 02/21/2025 10:30 AM EST Appointment [facility] [place] [facility] [address] [place] [address], [address] [place] [address] Sumit Toledo MD, PhD 55 [facility] [place] [address] [email or web address] 05/20/2025 10:30 AM EDT Appointment [facility] [place] [facility] 30 [place] [address] Tal Stanley MD [address] [address] [email or web address] 07/12/2025 9:00 AM EDT Appointment [facility] Cardiac EP 32 [facility], 5th Floor, [address] [place] [address] Sumit Toledo MD, PhD 55 [facility]1[address] [place] [address] [email or web address] 07/12/2025 9:30 AM EDT Office Visit [facility] Cardiology Arrhythmia Service at the [facility] 32 [facility], 5th Floor, [address] [place] [address] Lisa Mccarthy NP [address] [address] [email or web address] 07/12/2025 11:00 AM EDT Office Visit [facility] Heart Failure and Transplantation Program at the [facility] 32 [facility], 5th Floor, [address] [place] [address] Tal Stanley MD [address] [address] [email or web address] documented as of this encounter Visit Diagnoses Not on filedocumented in this encounter Additional Health Concerns Infection Onset Date Last Indicated Resolved Time CoV-Risk 02/10/2024 02/10/2024 02/21/2024 1:22 AM EST RSV 02/10/2024 02/10/2024 02/17/2024 1:25 AM EST documented as of this encounter Care Teams Broom Man Relationship Specialty Start Date End Date Eduardo Rutledge MD [address] [place] [address] PCP - General Internal Medicine 06/19/18 documented as of this encounter Additional Source Comments The information contained in this document represents components of the legal health record. It is not the complete legal health record.[facility]
--- OUTSIDE RECORDS SUMMARY | 2025-01-30 08:00 | XMS_ITS | Encounter Summary ---
Author Organization [facility] Address [facility] [address] [place] [address] Phone Care Team Providers Care Deputy Felony Clerk Name Role Phone Eduardo Rutledge MD Primary Care Provid er Encounter Details Date Type Department Care Team (Late st Contact Info) Description 02/11/2020 Procedure Pass [facility] [address] [place] [address], [address] [place] [address] Social History Tobacco Use Types Packs/Day Years [...] st Contact Info) Description 11/26/2024 Procedure Pass [facility] [address] [place] [address] 02/21/2025 10:30 AM EST Appointment [place] [facility] 55 [facility], [address] [place] [address] Sumit Toledo MD, PhD 55 [facility]-[address] [place] [address] [email or web address] 05/20/2025 10:30 AM EDT Appointment [facility] [place] [facility] 30 [place] [address] Tal Stanley MD [address] [address] [email or web address] 07/12/2025 9:00 AM EDT Appointment [facility] Cardiac EP 32 [facility], 5th Floor, [address] [place] [address] Sumit Toledo MD, PhD 55 [facility] [place] [address] [email or web address] 07/12/2025 9:30 AM EDT Office Visit [facility] Cardiology Arrhythmia Service at the [facility] 32 [facility], 5th Floor, [address] [place] [address] Lisa Mccarthy NP [address] [address] [email or web address] 07/12/2025 11:00 AM EDT Office Visit [facility] Heart Failure and Transplantation Program at the [facility] 32 [facility], 5th Floor, [address] [place] [address] Tal Stanley MD [address] [address] [email or web address] documented as of this encounter Visit Diagnoses Not on filedocumented in this encounter Additional Health Concerns Infection Onset Date Last Indicated Resolved Time CoV-Risk 02/10/2024 02/10/2024 02/21/2024 1:22 AM EST RSV 02/10/2024 02/10/2024 02/17/2024 1:25 AM EST documented as of this encounter Care Teams Deputy Felony Clerk Relationship Specialty Start Date End Date Eduardo Rutledge MD [address] [place] [address] PCP - General Internal Medicine 06/19/18 documented as of this encounter Additional Source Comments The information contained in this document represents components of the legal health record. It is not the complete legal health record.[facility]
--- OUTSIDE RECORDS SUMMARY | 2025-01-30 08:00 | XMS_ITS | Encounter Summary ---
Author Organization [facility] Address [facility] [address] [place] [address] Phone Care Team Providers Care Forest Ranger Technician Name Role Phone Eduardo Rutledge MD Primary Care Provid er Encounter Details Date Type Department Care Team (Late st Contact Info) Description 05/13/2020 Procedure Pass [facility] [address] [place] [address], [address] [place] [address] Social History Tobacco Use Types Packs/Day Years [...] st Contact Info) Description 11/26/2024 Procedure Pass [facility] [address] [place] [address] 02/21/2025 10:30 AM EST Appointment [place] [facility] [address] [place] [address], [address] [place] [address] Sumit Toledo MD, PhD 55 [facility]-[address]109 [place] [address] [email or web address] 05/20/2025 10:30 AM EDT Appointment [facility] [place] [facility] 30 [place] [address] Tal Stanley MD [address] [address] [email or web address] 07/12/2025 9:00 AM EDT Appointment [facility] Cardiac EP 32 [facility], 5th Floor, [address] [place] [address] Sumit Toledo MD, PhD 55 [facility] [place] [address] [email or web address] 07/12/2025 9:30 AM EDT Office Visit [facility] Cardiology Arrhythmia Service at the [facility] 32 [facility], 5th Floor, [address] [place] [address] Lisa Mccarthy NP [address] [address] [email or web address] 07/12/2025 11:00 AM EDT Office Visit [facility] Heart Failure and Transplantation Program at the [facility] 32 [facility], 5th Floor, [address] [place] [address] Tal Stanley MD [address] [address] [email or web address] documented as of this encounter Visit Diagnoses Not on filedocumented in this encounter Additional Health Concerns Infection Onset Date Last Indicated Resolved Time CoV-Risk 02/10/2024 02/10/2024 02/21/2024 1:22 AM EST RSV 02/10/2024 02/10/2024 02/17/2024 1:25 AM EST documented as of this encounter Care Teams Forest Ranger Technician Relationship Specialty Start Date End Date Eduardo Rutledge MD [address] [place] [id number] PCP - General Internal Medicine 06/19/18 documented as of this encounter Additional Source Comments The information contained in this document represents components of the legal health record. It is not the complete legal health record.[facility]
--- OUTSIDE RECORDS SUMMARY | 2025-01-30 08:00 | XMS_ITS | Encounter Summary ---
Author Organization [facility] Address [facility] [address] [place] [address] Phone Care Team Providers Care Evaluator Transfer Students Name Role Phone Eduardo Rutledge MD Primary Care Provid er Encounter Details Date Type Department Care Team (Late st Contact Info) Description 04/10/2020 Procedure Pass [facility] [address] [place] [address], [address] [place] [address] Social History Tobacco Use Types Packs/Day Years [...] st Contact Info) Description 11/26/2024 Procedure Pass [facility] [address] [place] [address] 02/21/2025 10:30 AM EST Appointment [facility] 55 [facility], [address] [place] [address] Sumit Toledo MD, PhD 55 [facility]-[address] [place] [address] [email or web address] 05/20/2025 10:30 AM EDT Appointment [facility] 30 [place] [address] Tal Stanley MD [address] [address] [email or web address] 07/12/2025 9:00 AM EDT Appointment [facility] Cardiac EP 32 [facility], 5th Floor, [address] [place] [address] Sumit Toledo MD, PhD 55 [facility] [place] [address] [email or web address] 07/12/2025 9:30 AM EDT Office Visit [facility] Cardiology Arrhythmia Service at the [facility] 32 [facility], 5th Floor, [address] [place] [address] Lisa Mccarthy NP [address] [address] [email or web address] 07/12/2025 11:00 AM EDT Office Visit [facility] Heart Failure and Transplantation Program at the [facility] 32 [facility], 5th Floor, [address] [place] [address] Tal Stanley MD [address] [address] [email or web address] documented as of this encounter Visit Diagnoses Not on filedocumented in this encounter Additional Health Concerns Infection Onset Date Last Indicated Resolved Time CoV-Risk 02/10/2024 02/10/2024 02/21/2024 1:22 AM EST RSV 02/10/2024 02/10/2024 02/17/2024 1:25 AM EST documented as of this encounter Care Teams Evaluator Transfer Students Relationship Specialty Start Date End Date Eduardo Rutledge MD [address] [place] [address] PCP - General Internal Medicine 06/19/18 documented as of this encounter Additional Source Comments The information contained in this document represents components of the legal health record. It is not the complete legal health record.[facility]
--- OUTSIDE RECORDS SUMMARY | 2025-01-30 08:00 | XMS_ITS | Encounter Summary ---
Author Organization [facility] Address [facility] [address] [place] [address] Phone Care Team Providers Care Environmental Engineering Intern Name Role Phone Eduardo Rutledge MD Primary Care Provid er Encounter Details Date Type Department Care Team (Late st Contact Info) Description 09/10/2020 Procedure Pass [facility] [address] [place] [address], [address] [place] [address] Social History Tobacco Use Types Packs/Day Years [...] st Contact Info) Description 11/26/2024 Procedure Pass [facility] [employer] [facility] [address] [place] [address] 02/21/2025 10:30 AM EST Appointment [place] [facility] 55 [facility], [address] [place] [address] Sumit Toledo MD, PhD 55 [facility]-[address] [place] [address] [email or web address] 05/20/2025 10:30 AM EDT Appointment [facility] [place] [facility] 30 [place] [address] Tal Stanley MD [address] [address] [email or web address] 07/12/2025 9:00 AM EDT Appointment [facility] Cardiac EP 32 [facility], 5th Floor, [address] [place] [address] Sumit Toledo MD, PhD 55 [facility] [place] [address] [email or web address] 07/12/2025 9:30 AM EDT Office Visit [facility] Cardiology Arrhythmia Service at the [facility] 32 [facility], 5th Floor, [address] [place] [address] Lisa Mccarthy NP [address] [address] [email or web address] 07/12/2025 11:00 AM EDT Office Visit [facility] Heart Failure and Transplantation Program at the [facility] 32 [facility], 5th Floor, [address] [place] [address] Tal Stanley MD [address] [address] [email or web address] documented as of this encounter Visit Diagnoses Not on filedocumented in this encounter Additional Health Concerns Infection Onset Date Last Indicated Resolved Time CoV-Risk 02/10/2024 02/10/2024 02/21/2024 1:22 AM EST RSV 02/10/2024 02/10/2024 02/17/2024 1:25 AM EST documented as of this encounter Care Teams Environmental Engineering Intern Relationship Specialty Start Date End Date Eduardo Rutledge MD [address] [place] [address] PCP - General Internal Medicine 06/19/18 documented as of this encounter Additional Source Comments The information contained in this document represents components of the legal health record. It is not the complete legal health record.[facility]
--- OUTSIDE RECORDS SUMMARY | 2025-01-30 08:00 | XMS_ITS | Encounter Summary ---
Author Organization [facility] Address [facility] [address] [place] [address] Phone Care Team Providers Care Recordings Librarian Name Role Phone Eduardo Rutledge MD Primary Care Provid er Encounter Details Date Type Department Care Team (Late st Contact Info) Description 01/29/2025 Telephone [facility] Heart Failure and Transplantation Program at the [facility] 32 [facility], 5th Floor, [address] [place] [address] Lidya Fraser RN 55 [place] [address] [email or web address] Social History Tobacco Use Types Packs/Day Years [...] AM EDT documented as of this encounter Progress Notes * Lidya Fraser RN - 01/29/2025 2:47 PM ESTAddended by: LIDYA FRASER on: 01/29/2025 02:47 PM Modules accepted: Orders * Lidya Fraser RN - 01/29/2025 1:49 PM EST Office of Dr Stanley called over concern for increased lethargy in last 1.5 weeks. sleeping 12-13 hours a night, with nap during day. Unusual fatigue for him. concerned side effect of toprol xl,patient started medication in July 2024. denies fever, cough, aches, dizziness, urgnecy issues. Pt is confused at baseline. Pt does take 50 mg of trazodone nightly and has continued to receive even with increased lethargy. Date BP HR 01/19 107/68 76 01/20 101/68 72 01/21 101/68 70 01/22 113/73 75 01/23 106/68 70 01/24 109/68 72 01/25 104/60 70 01/26 96/62 70 01/27 98/60 70 01/28 100/70 72 01/29 100/68 70 Pt has not had labs recently [facility] notified Per [facility] pt needs the following labs: nt pro bnp, cmp, digoxin level, and cbc. Labs ordered and faxed. confirms she will take tomorrow. documented in this encounter Plan of Treatment Upcoming Encounters Date Type Department Care Team (Late st Contact Info) Description 11/26/2024 Procedure Pass [facility] 30 [place] [address] 02/21/2025 10:30 AM EST Appointment [facility] Division 55 [facility], [address] [place] [address] Sumit Toledo MD, PhD 55 [facility]-[address] [place] [address] [email or web address] 05/20/2025 10:30 AM EDT Appointment [facility] 30 [place] [address] Tal Stanley MD [address] [address] [email or web address] 07/12/2025 9:00 AM EDT Appointment [facility] Cardiac EP 32 [facility], 5th Floor, [address] [place] [address] Sumit Toledo MD, PhD 55 [facility] [place] [address] [email or web address] 07/12/2025 9:30 AM EDT Office Visit [facility] Cardiology Arrhythmia Service at the [facility] 32 [facility], 5th Floor, [address] [place] [address] Lisa Mccarthy NP [address] [address] [email or web address] 07/12/2025 11:00 AM EDT Office Visit [facility] Heart Failure and Transplantation Program at the [facility] 32 [facility], 5th Floor, [address] [place] [address] Tal Stanley MD [address] [address] [email or web address] documented as of this encounter Visit Diagnoses Diagnosis Chronic systolic heart failure- Primary documented in this encounter Care Teams Recordings Librarian Relationship Specialty Start Date End Date Eduardo Rutledge MD [address] [place] [address] PCP - General Internal Medicine 06/19/18 documented as of this encounter Additional Source Comments The information contained in this document represents components of the legal health record. It is not the complete legal health record.[facility]
--- OUTSIDE RECORDS SUMMARY | 2025-01-30 08:00 | XMS_ITS | Encounter Summary ---
Author Organization [facility] Address [facility] [address] [place] [address] Phone Care Team Providers Care Albacore Fishing Boat Crewman Name Role Phone Eduardo Rutledge MD Primary Care Provid er Encounter Details Date Type Department Care Team (Late st Contact Info) Description 09/07/2023 Procedure Pass [facility] 55 [facility], [address] [place] [address] Social History Tobacco Use Types Packs/Day Years [...] st Contact Info) Description 11/26/2024 Procedure Pass [employer] [facility] 30 [place] [address] 02/21/2025 10:30 AM EST Appointment [facility] 55 [facility], [address] [place] [address] Sumit Toledo MD, PhD 55 [facility]-1[address] [place] [address] [email or web address] 05/20/2025 10:30 AM EDT Appointment [facility] [employer] [facility] 30 [place] [address] Tal Stanley MD [address] [address] [email or web address] 07/12/2025 9:00 AM EDT Appointment [facility] Cardiac EP 32 [facility], 5th Floor, [address] [place] [address] Sumit Toledo MD, PhD 55 [facility]1[address] [place] [address] [email or web address] 07/12/2025 9:30 AM EDT Office Visit [facility] Cardiology Arrhythmia Service at the [facility] 32 [facility], 5th Floor, [address] [place] [address] Lisa Mccarthy NP [address] [address] [email or web address] 07/12/2025 11:00 AM EDT Office Visit [facility] Heart Failure and Transplantation Program at the [facility] [place] 32 [facility], 5th Floor, [address] [place] [address] Tal Stanley MD 55 [facility] [address] [place] [address] [email or web address] documented as of this encounter Visit Diagnoses Not on filedocumented in this encounter Additional Health Concerns Infection Onset Date Last Indicated Resolved Time CoV-Risk 02/10/2024 02/10/2024 02/21/2024 1:22 AM EST RSV 02/10/2024 02/10/2024 02/17/2024 1:25 AM EST documented as of this encounter Care Teams Albacore Fishing Boat Crewman Relationship Specialty Start Date End Date Eduardo Rutledge MD [address] [place] [address] PCP - General Internal Medicine 06/19/18 documented as of this encounter Additional Source Comments The information contained in this document represents components of the legal health record. It is not the complete legal health record.[facility]
--- OUTSIDE RECORDS SUMMARY | 2025-01-30 08:00 | XMS_ITS | Encounter Summary ---
Author Organization [facility] Address [facility] [address] [place] [address] Phone Care Team Providers Care Rig Manager Name Role Phone Eduardo Rutledge MD Primary Care Provid er Encounter Details Date Type Department Care Team (Late st Contact Info) Description 06/10/2021 Procedure Pass [facility] 32 [facility], 5th Floor, [address] [place] [address] Social History Tobacco Use Types Packs/Day Years [...] st Contact Info) Description 11/26/2024 Procedure Pass [facility] [address] [place] [address] 02/21/2025 10:30 AM EST Appointment [facility] [place] [facility] 55 [facility], [address] [place] [address] Sumit Toledo MD, PhD 55 [facility]1[address] [place] [address] [email or web address] 05/20/2025 10:30 AM EDT Appointment [facility] [place] [facility] 30 [place] [address] Tal Stanley MD [address] [address] [email or web address] 07/12/2025 9:00 AM EDT Appointment [facility] Cardiac EP 32 [facility], 5th Floor, [address] [place] [address] Sumit Toledo MD, PhD 55 [facility]1109 [place] [address] [email or web address] 07/12/2025 9:30 AM EDT Office Visit [facility] Cardiology Arrhythmia Service at the [facility] 32 [facility], 5th Floor, [address] [place] [address] Lisa Mccarthy NP [address] [address] [email or web address] 07/12/2025 11:00 AM EDT Office Visit [facility] Heart Failure and Transplantation Program at the [facility] 32 [facility], 5th Floor, [address] [place] [address] Tal Stanley MD [address] [address] [email or web address] documented as of this encounter Visit Diagnoses Not on filedocumented in this encounter Additional Health Concerns Infection Onset Date Last Indicated Resolved Time CoV-Risk 02/10/2024 02/10/2024 02/21/2024 1:22 AM EST RSV 02/10/2024 02/10/2024 02/17/2024 1:25 AM EST documented as of this encounter Care Teams Rig Manager Relationship Specialty Start Date End Date Eduardo Rutledge MD [address] [place] [address] PCP - General Internal Medicine 06/19/18 documented as of this encounter Additional Source Comments The information contained in this document represents components of the legal health record. It is not the complete legal health record.[facility]
--- OUTSIDE RECORDS SUMMARY | 2025-01-30 08:00 | XMS_ITS | Encounter Summary ---
Author Organization [facility] Address [facility] [address] [place] [address] Phone Care Team Providers Care Industrial Service Technician Name Role Phone Eduardo Rutledge MD Primary Care Provid er Encounter Details Date Type Department Care Team (Late st Contact Info) Description 07/09/2024 Procedure Pass [facility] 55 [facility], [address] [place] [address] Social History Tobacco Use Types Packs/Day Years [...] st Contact Info) Description 11/26/2024 Procedure Pass [facility] 30 [place] [address] 02/21/2025 10:30 AM EST Appointment [facility] 55 [facility], [address] [place] [address] Sumit Toledo MD, PhD 55 [facility]-[address] [place] [address] [email or web address] 05/20/2025 10:30 AM EDT Appointment [facility] [employer] [facility] 30 [place] [address] Tal Stanley MD [address] [address] [email or web address] 07/12/2025 9:00 AM EDT Appointment [facility] Card[facility] EP 32 [facility], 5th Floor, [address] [place] [address] Sumit Toledo MD, PhD 55 [facility]1[address] [place] [address] [email or web address] 07/12/2025 9:30 AM EDT Office Visit [facility] Cardiology Arrhythmia Service at the [facility] 32 [facility], 5th Floor, [address] [place] [address] Lisa Mccarthy NP [address] [address] [email or web address] 07/12/2025 11:00 AM EDT Office Visit [facility] Heart Failure and Transplantation Program at the [facility] [place] 32 [facility], 5th Floor, [address] [place] [address] Tal Stanley MD 55 [facility] [address] [place] [address] [email or web address] documented as of this encounter Visit Diagnoses Not on filedocumented in this encounter Care Teams Industrial Service Technician Relationship Specialty Start Date End Date Eduardo Rutledge MD [address] [place] [address] PCP - General Internal Medicine 06/19/18 documented as of this encounter Additional Source Comments The information contained in this document represents components of the legal health record. It is not the complete legal health record.[facility]
--- OUTSIDE RECORDS SUMMARY | 2025-01-30 08:00 | XMS_ITS | Encounter Summary ---
Author Organization [facility] Address [address] [place] [address] [place] [address] Phone Care Team Providers Care Jukebox Route Driver Name Role Phone Valeriano Douglas MD Primary Care Provider [phone] Mercedes Melgar MD Primary Care Provider Eduardo Rutledge MD Primary Care Provid er Encounter Details Date Type Department Care Team (Latest Contact Info) Description 09/10/2016 Transcribe Orders [facility] Card[facility] Arrhythmias at the [facility] Heart [address], [address] [place] [address] Sumit Toledo MD, PhD [address] [place], [place] [address]B[address] [place] [address] [email or web address] Cardiac arrhythmia, unspecified cardiac arrhythmia type (Primary [...] st Contact Info) Description 11/26/2024 Procedure Pass [employer] [facility] 30 [place] [address] 02/21/2025 10:30 AM EST Appointment [place] [facility] 55 [facility], [address] [place] [address] Sumit Toledo MD, PhD 55 [facility]1109 [place] [address] [email or web address] 05/20/2025 10:30 AM EDT Appointment [facility] 30 [place] [address] Tal Stanley MD [address] [address] [email or web address] [place] 07/12/2025 9:00 AM EDT Appointment [facility] 32 [facility], 5th Floor, [address] [place] [address] Sumit Toledo MD, PhD [address] [place], [place] [address] [place] [address] [email or web address] 07/12/2025 9:30 AM EDT Office Visit [facility] Cardiology Arrhythmia Service at the [facility] 32 [facility], 5th Floor, [address] [place] [address] Lisa Mccarthy NP [address] [address] [email or web address] [place] 07/12/2025 11:00 AM EDT Office Visit [facility] Heart Failure and Transplantation Program at the [facility] 32 [address] [facility], 5th Floor, [address] [place] [address] Tal Stanley MD [address] [place] [address] [email or web address] [place] documented as of this encounter Visit Diagnoses Diagnosis Cardiac arrhythmia, unspecified cardiac arrhythmia type- Primary documented in this encounter Additional Health Concerns Infection Onset Date Last Indicated Resolved Time CoV-Risk 02/10/2024 02/10/2024 02/21/2024 1:22 AM EST RSV 02/10/2024 02/10/2024 02/17/2024 1:25 AM EST documented as of this encounter Care Teams Jukebox Route Driver Relationship Specialty Start Date End Date Valeriano Douglas MD [address] [facility] [address] [place] [address] PCP - General 08/07/13 02/27/17 Mercedes Melgar MD [address] [place] [address] PCP - General Pulmonary Disease 02/28/17 06/18/18 Eduardo Rutledge MD [address] [place] [address] PCP - General Internal Medicine 06/19/18 documented as of this encounter Additional Source Comments The information contained in this document represents components of the legal health record. It is not the complete legal health record.[facility]
--- OUTSIDE RECORDS SUMMARY | 2025-01-30 08:00 | XMS_ITS | Encounter Summary ---
Author Organization [facility] Address [facility] [address] [place] [address] Phone Care Team Providers Care Chair Pad Maker Name Role Phone Eduardo Rutledge MD Primary Care Provid er Encounter Details Date Type Department Care Team (Late st Contact Info) Description 09/09/2022 Procedure Pass [facility] 55 [facility], [address] [place] [address] Social History Tobacco Use Types Packs/Day Years [...] st Contact Info) Description 11/26/2024 Procedure Pass [employer] [facility] 30 [place] [address] 02/21/2025 10:30 AM EST Appointment [facility] 55 [facility], [address] [place] [address] Sumit Toledo MD, PhD 55 [facility]-1[address]109 [place] [address] [email or web address] 05/20/2025 10:30 AM EDT Appointment [facility] [employer] [facility] 30 [place] [address] Tal Stanley MD [address] [address] [email or web address] 07/12/2025 9:00 AM EDT Appointment [facility] Cardiac EP 32 [facility], 5th Floor, [address] [place] [address] Sumit Toledo MD, PhD 55 [facility] [place] [address] [email or web address] 07/12/2025 9:30 AM EDT Office Visit [facility] Cardiology Arrhythmia Service at the [facility] 32 [facility], 5th Floor, [address] [place] [address] Lisa Mccarthy NP [address] [address] [email or web address] 07/12/2025 11:00 AM EDT Office Visit [facility] Heart Failure and Transplantation Program at the [facility] [place] [address] [facility], 5th Floor, [address] [place] [address] Tal Stanley MD 55 [facility] [address] [place] [address] [email or web address] documented as of this encounter Visit Diagnoses Not on filedocumented in this encounter Additional Health Concerns Infection Onset Date Last Indicated Resolved Time CoV-Risk 02/10/2024 02/10/2024 02/21/2024 1:22 AM EST RSV 02/10/2024 02/10/2024 02/17/2024 1:25 AM EST documented as of this encounter Care Teams Chair Pad Maker Relationship Specialty Start Date End Date Eduardo Rutledge MD [address] [place] [address] PCP - General Internal Medicine 06/19/18 documented as of this encounter Additional Source Comments The information contained in this document represents components of the legal health record. It is not the complete legal health record.[facility]
--- OUTSIDE RECORDS SUMMARY | 2025-01-30 08:00 | XMS_ITS | Encounter Summary ---
Author Organization [facility] Address [facility] [address] [place] [address] Phone Care Team Providers Care Petrology Teacher Name Role Phone Eduardo Rutledge MD Primary Care Provid er Encounter Details Date Type Department Care Team (Late st Contact Info) Description 12/12/2019 Procedure Pass [facility] [address] [place] [address], [address] [place] [address] Social History Tobacco Use Types Packs/Day Years [...] st Contact Info) Description 11/26/2024 Procedure Pass [facility] [address] [place] [address] 02/21/2025 10:30 AM EST Appointment [facility] [address] [place] [address], [address] [place] [address] Sumit Toledo MD, PhD 55 [facility] [place] [address] [email or web address] 05/20/2025 10:30 AM EDT Appointment [facility] 30 [place] [address] Tal Stanley MD [address] [address] [email or web address] 07/12/2025 9:00 AM EDT Appointment [facility] Cardiac EP 32 [facility], 5th Floor, [address] [place] [address] Sumit Toledo MD, PhD 55 [facility] [place] [address] [email or web address] 07/12/2025 9:30 AM EDT Office Visit [facility] Cardiology Arrhythmia Service at the [facility] 32 [facility], 5th Floor, [address] [place] [address] Lisa Mccarthy NP [address] [address] [email or web address] 07/12/2025 11:00 AM EDT Office Visit [facility] Heart Failure and Transplantation Program at the [facility] 32 [facility], 5th Floor, [address] [place] [address] Tal Stanley MD [address] [address] [email or web address] documented as of this encounter Visit Diagnoses Not on filedocumented in this encounter Additional Health Concerns Infection Onset Date Last Indicated Resolved Time CoV-Risk 02/10/2024 02/10/2024 02/21/2024 1:22 AM EST RSV 02/10/2024 02/10/2024 02/17/2024 1:25 AM EST documented as of this encounter Care Teams Petrology Teacher Relationship Specialty Start Date End Date Eduardo Rutledge MD [address] [place] [address] PCP - General Internal Medicine 06/19/18 documented as of this encounter Additional Source Comments The information contained in this document represents components of the legal health record. It is not the complete legal health record.[facility]
--- OUTSIDE RECORDS SUMMARY | 2025-01-30 08:00 | XMS_ITS | Encounter Summary ---
Author Organization [facility] Address [facility] [address] [place] [address] Phone Care Team Providers Care Soil Fertility Specialist Name Role Phone Eduardo Rutledge MD Primary Care Provid er Encounter Details Date Type Department Care Team (Late st Contact Info) Description 06/26/2021 Procedure Pass [facility] Cardiology Division [address] [place] [address], [address] [place] [address] Social History Tobacco Use Types Packs/Day Years [...] st Contact Info) Description 11/26/2024 Procedure Pass [facility] [address] [place] [address] 02/21/2025 10:30 AM EST Appointment [facility] [address] [place] [address], [address] [place] [address] Sumit Toledo MD, PhD 55 [facility]-[address] [place] [address] [email or web address] 05/20/2025 10:30 AM EDT Appointment [facility] [place] [facility] 30 [place] [address] Tal Stanley MD [address] [address] [email or web address] 07/12/2025 9:00 AM EDT Appointment [facility] Cardiac EP 32 [facility], 5th Floor, [address] [place] [address] Sumit Toledo MD, PhD 55 [facility] [place] [address] [email or web address] 07/12/2025 9:30 AM EDT Office Visit [facility] Cardiology Arrhythmia Service at the [facility] 32 [facility], 5th Floor, [address] [place] [address] Lisa Mccarthy NP [address] [address] [email or web address] 07/12/2025 11:00 AM EDT Office Visit [facility] Heart Failure and Transplantation Program at the [facility] 32 [facility], 5th Floor, [address] [place] [address] Tal Stanley MD [address] [address] [email or web address] documented as of this encounter Visit Diagnoses Not on filedocumented in this encounter Additional Health Concerns Infection Onset Date Last Indicated Resolved Time CoV-Risk 02/10/2024 02/10/2024 02/21/2024 1:22 AM EST RSV 02/10/2024 02/10/2024 02/17/2024 1:25 AM EST documented as of this encounter Care Teams Soil Fertility Specialist Relationship Specialty Start Date End Date Eduardo Rutledge MD [address] [place] [address] PCP - General Internal Medicine 06/19/18 documented as of this encounter Additional Source Comments The information contained in this document represents components of the legal health record. It is not the complete legal health record.[facility]
--- OUTSIDE RECORDS SUMMARY | 2025-01-30 08:00 | XMS_ITS | Encounter Summary ---
Author Organization [facility] Address [facility] [address] [place] [address] Phone Care Team Providers Care Special Needs Tutor Name Role Phone Eduardo Rutledge MD Primary Care Provid er Encounter Details Date Type Department Care Team (Late st Contact Info) Description 12/05/2024 Procedure Pass [facility] [address] [place] [address], [address] [place] [address] Social History Tobacco Use Types Packs/Day Years [...] st Contact Info) Description 11/26/2024 Procedure Pass [facility] 30 [place] [address] 02/21/2025 10:30 AM EST Appointment [facility] [address] [facility], [address] [place] [address] Sumit Toledo MD, PhD 55 [facility] [place] [address] [email or web address] 05/20/2025 10:30 AM EDT Appointment [facility] 30 [place] [address] Tal Stanley MD [address] [address] [email or web address] 07/12/2025 9:00 AM EDT Appointment [facility] 32 [facility], 5th Floor, [address] [place] [address] Sumit Toledo MD, PhD 55 [facility] [place] [address] [email or web address] 07/12/2025 9:30 AM EDT Office Visit [facility] Cardiology Arrhythmia Service at the [facility] 32 [facility], 5th Floor, [address] [place] [address] Lisa Mccarthy NP [address] [address] [email or web address] 07/12/2025 11:00 AM EDT Office Visit [facility] Heart Failure and Transplantation Program at the [facility] 32 [address] [facility], 5th Floor, [address] [place] [address] Tal Stanley MD 55 [address] [facility] [address] [place] [address] [email or web address] documented as of this encounter Visit Diagnoses Not on filedocumented in this encounter Care Teams Special Needs Tutor Relationship Specialty Start Date End Date Eduardo Rutledge MD [address] [place] [address] PCP - General Internal Medicine 06/19/18 documented as of this encounter Additional Source Comments The information contained in this document represents components of the legal health record. It is not the complete legal health record.[facility]
--- OUTSIDE RECORDS SUMMARY | 2025-01-30 08:00 | XMS_ITS | Encounter Summary ---
Author Organization [facility] Address [facility] [address] [place] [address] Phone Care Team Providers Care Curing Press Operator Name Role Phone Eduardo Rutledge MD Primary Care Provid er Encounter Details Date Type Department Care Team (Late st Contact Info) Description 12/08/2022 Procedure Pass [facility] 55 [facility], [address] [place] [address] Social History Tobacco Use Types Packs/Day Years [...] st Contact Info) Description 11/26/2024 Procedure Pass [facility] 30 [place] [address] 02/21/2025 10:30 AM EST Appointment [facility] 55 [facility], [address] [place] [address] Sumit Toledo MD, PhD 55 [facility] [place] [address] [email or web address] 05/20/2025 10:30 AM EDT Appointment [facility] 30 [place] [address] Tal Stanley MD [address] [address] [email or web address] 07/12/2025 9:00 AM EDT Appointment [facility] Cardiac EP 32 [facility], 5th Floor, [address] [place] [address] Sumit Toledo MD, PhD 55 [facility] [place] [address] [email or web address] 07/12/2025 9:30 AM EDT Office Visit [facility] Cardiology Arrhythmia Service at the [facility] 32 [facility], 5th Floor, [address] [place] [address] Lisa Mccarthy NP [address] [address] [email or web address] 07/12/2025 11:00 AM EDT Office Visit [facility] Heart Failure and Transplantation Program at the [facility] Heart [place] [address] [facility], 5th Floor, [address] [place] [address] Tal Stanley MD 55 [address] [facility] 5[address] [place] [address] [email or web address] [place] [place] documented as of this encounter Visit Diagnoses Not on filedocumented in this encounter Additional Health Concerns Infection Onset Date Last Indicated Resolved Time CoV-Risk 02/10/2024 02/10/2024 02/21/2024 1:22 AM EST RSV 02/10/2024 02/10/2024 02/17/2024 1:25 AM EST documented as of this encounter Care Teams Curing Press Operator Relationship Specialty Start Date End Date Eduardo Rutledge MD [address] [place] [address] PCP - General Internal Medicine 06/19/18 documented as of this encounter Additional Source Comments The information contained in this document represents components of the legal health record. It is not the complete legal health record.[facility]
--- OUTSIDE RECORDS SUMMARY | 2025-01-30 08:00 | XMS_ITS | Encounter Summary ---
Author Organization [facility] Address [facility] [address] [place] [address] Phone Care Team Providers Care Landscape Account Manager Name Role Phone Eduardo Rutledge MD Primary Care Provid er Encounter Details Date Type Department Care Team (Late st Contact Info) Description 11/22/2024 Procedure Pass [facility] [address] [place] [address], [address] [place] [address] Social History Tobacco Use Types Packs/Day Years [...] st Contact Info) Description 11/26/2024 Procedure Pass [facility] 30 [place] [address] 02/21/2025 10:30 AM EST Appointment [facility] 55 [facility], [address] [place] [address] Sumit Toledo MD, PhD 55 [facility]-1[facility]109 [place] [address] [email or web address] 05/20/2025 10:30 AM EDT Appointment [facility] 30 [place] [address] Tal Stanley MD [address] [address] [email or web address] 07/12/2025 9:00 AM EDT Appointment [facility] Cardiac EP 32 [facility], 5th Floor, [address] [place] [address] Sumit Toledo MD, PhD 55 [facility] [place] [address] [email or web address] 07/12/2025 9:30 AM EDT Office Visit [facility] Cardiology Arrhythmia Service at the [facility] 32 [facility], 5th Floor, [address] [place] [address] Lisa Mccarthy NP [address] [address] [email or web address] 07/12/2025 11:00 AM EDT Office Visit [facility] Heart Failure and Transplantation Program at the [facility] [place] 32 [address] [facility], 5th Floor, [address] [place] [address] Tal Stanley MD 55 [facility] 5B [place] [address] [email or web address] documented as of this encounter Visit Diagnoses Not on filedocumented in this encounter Care Teams Landscape Account Manager Relationship Specialty Start Date End Date Eduardo Rutledge MD [address] [place] [address] PCP - General Internal Medicine 06/19/18 documented as of this encounter Additional Source Comments The information contained in this document represents components of the legal health record. It is not the complete legal health record.[facility]
--- OUTSIDE RECORDS SUMMARY | 2025-01-30 08:00 | XMS_ITS | Encounter Summary ---
Author Organization [facility] Address [facility] [address] [place] [address] Phone Care Team Providers Care Boiler Technician Name Role Phone Eduardo Rutledge MD Primary Care Provid er Encounter Details Date Type Department Care Team (Late st Contact Info) Description 04/11/2020 Procedure Pass [facility] [address] [place] [address], [address] [place] [address] Social History Tobacco Use Types Packs/Day Years [...] st Contact Info) Description 11/26/2024 Procedure Pass [facility] [address] [place] [address] 02/21/2025 10:30 AM EST Appointment [facility] 55 [facility], [address] [place] [address] Sumit Toledo MD, PhD 55 [facility]-1[facility] [place] [address] [email or web address] 05/20/2025 10:30 AM EDT Appointment [facility] 30 [place] [address] Tal Stanley MD [address] [address] [email or web address] 07/12/2025 9:00 AM EDT Appointment [facility] Cardiac EP 32 [facility], 5th Floor, [address] [place] [address] Sumit Toledo MD, PhD 55 [facility] [place] [address] [email or web address] 07/12/2025 9:30 AM EDT Office Visit [facility] Cardiology Arrhythmia Service at the [facility] 32 [facility], 5th Floor, [address] [place] [address] Lisa Mccarthy NP [address] [address] [email or web address] 07/12/2025 11:00 AM EDT Office Visit [facility] Heart Failure and Transplantation Program at the [facility] 32 [facility], 5th Floor, [address] [place] [address] Tal Stanley MD [address] [address] [email or web address] documented as of this encounter Visit Diagnoses Not on filedocumented in this encounter Additional Health Concerns Infection Onset Date Last Indicated Resolved Time CoV-Risk 02/10/2024 02/10/2024 02/21/2024 1:22 AM EST RSV 02/10/2024 02/10/2024 02/17/2024 1:25 AM EST documented as of this encounter Care Teams Boiler Technician Relationship Specialty Start Date End Date Eduardo Rutledge MD [address] [place] [address] PCP - General Internal Medicine 06/19/18 documented as of this encounter Additional Source Comments The information contained in this document represents components of the legal health record. It is not the complete legal health record.[facility]
--- OUTSIDE RECORDS SUMMARY | 2025-01-30 08:00 | XMS_ITS | Encounter Summary ---
Author Organization [facility] Address [facility] [address] [place] [address] Phone Care Team Providers Care Orchardist Name Role Phone Eduardo Rutledge MD Primary Care Provid er Encounter Details Date Type Department Care Team (Late st Contact Info) Description 12/31/2024 Procedure Pass [facility] [address] [place] [address], [address] [place] [address] Social History Tobacco Use Types Packs/Day Years [...] st Contact Info) Description 11/26/2024 Procedure Pass [facility] 30 [place] [address] 02/21/2025 10:30 AM EST Appointment [facility] 55 [facility], [address] [place] [address] Sumit Toledo MD, PhD 55 [facility]-1[facility] [place] [address] [email or web address] 05/20/2025 10:30 AM EDT Appointment [facility] 30 [place] [address] Tal Stanley MD [address] [address] [email or web address] 07/12/2025 9:00 AM EDT Appointment [facility] Cardiac EP 32 [facility], 5th Floor, [address] [place] [address] Sumit Toledo MD, PhD 55 [facility] [place] [address] [email or web address] 07/12/2025 9:30 AM EDT Office Visit [facility] Cardiology Arrhythmia Service at the [facility] 32 [facility], 5th Floor, [address] [place] [address] Lisa Mccarthy NP [address] [address] [email or web address] 07/12/2025 11:00 AM EDT Office Visit [facility] Heart Failure and Transplantation Program at the [facility] [place] 32 [address] [facility], 5th Floor, [address] [place] [address] Tal Stanley MD 55 [address] [facility] [address] [place] [address] [email or web address] documented as of this encounter Visit Diagnoses Not on filedocumented in this encounter Care Teams Orchardist Relationship Specialty Start Date End Date Eduardo Rutledge MD [address] [place] [address] PCP - General Internal Medicine 06/19/18 documented as of this encounter Additional Source Comments The information contained in this document represents components of the legal health record. It is not the complete legal health record.[facility]
--- OUTSIDE RECORDS SUMMARY | 2025-01-30 08:00 | XMS_ITS | Encounter Summary ---
Author Organization [facility] Address [facility] [address] [place] [address] Phone Care Team Providers Care Commercial Property Administrator Name Role Phone Eduardo Rutledge MD Primary Care Provid er Encounter Details Date Type Department Care Team (Late st Contact Info) Description 05/08/2024 Procedure Pass [facility] 55 [facility], [address] [place] [address] Social History Tobacco Use Types Packs/Day Years [...] st Contact Info) Description 11/26/2024 Procedure Pass [facility] 30 [place] [address] 02/21/2025 10:30 AM EST Appointment [facility] 55 [facility], [address] [place] [address] Sumit Toledo MD, PhD 55 [facility]-1-109 [place] [address] [email or web address] 05/20/2025 10:30 AM EDT Appointment [facility] 30 [place] [address] Tal Stanley MD [address] [address] [email or web address] 07/12/2025 9:00 AM EDT Appointment [facility] Cardiac EP 32 [facility], 5th Floor, [address] [place] [address] Sumit Toledo MD, PhD 55 [facility]1[address] [place] [address] [email or web address] 07/12/2025 9:30 AM EDT Office Visit [facility] Cardiology Arrhythmia Service at the [facility] [address] [facility], 5th Floor, [address] [place] [address] Lisa Mccarthy NP [address] [address] [email or web address] 07/12/2025 11:00 AM EDT Office Visit [facility] Heart Failure and Transplantation Program at the [facility] Heart [place] [address] [facility], 5th Floor, [address] [place] [address] Tal Stanley MD 55 [address] [facility] [address] [place] [address] [email or web address] documented as of this encounter Visit Diagnoses Not on filedocumented in this encounter Care Teams Commercial Property Administrator Relationship Specialty Start Date End Date Eduardo Rutledge MD [address] [place] [address] PCP - General Internal Medicine 06/19/18 documented as of this encounter Additional Source Comments The information contained in this document represents components of the legal health record. It is not the complete legal health record.[facility]
--- OUTSIDE RECORDS SUMMARY | 2025-01-30 08:00 | XMS_ITS | Encounter Summary ---
Author Organization [facility] Address [facility] [employer] [facility] [address] [place] [address] Phone Care Team Providers Care Head Buyer Tobacco Name Role Phone Eduardo Rutledge MD Primary Care Provid er Encounter Details Date Type Department Care Team (Late st Contact Info) Description 06/10/2022 Procedure Pass [facility] 55 [facility], [address] [place] [address] Social History Tobacco Use Types Packs/Day Years [...] Contact Info) Description 11/26/2024 Procedure Pass [facility] 30 [place] [address] 02/21/2025 10:30 AM EST Appointment [facility] Cardiology Division 55 [facility], [address] [place] [address] Sumit Toledo MD, PhD 55 [facility]-1-[address] [place] [address] [email or web address] 05/20/2025 10:30 AM EDT Appointment [facility] 30 [place] [address] Tal Stanley MD [address] [address] [email or web address] 07/12/2025 9:00 AM EDT Appointment [facility] 32 [facility], 5th Floor, [address] [place] [address] Sumit Toledo MD, PhD 55 [facility] [address] [place] [address] [email or web address] 07/12/2025 9:30 AM EDT Office Visit [facility] Cardiology Arrhythmia Service at the [facility] 32 [facility], 5th Floor, [address] [place] [address] Lisa Mccarthy NP [address] [address] [email or web address]@[email or web address] 07/12/2025 11:00 AM EDT Office Visit [facility] Heart Failure and Transplantation Program at the [facility] 32 [facility], 5th Floor, [address] [place] [address] Tal Stanley MD 55 [facility] [address] [place] [address] [email or web address] [place] [place] documented as of this encounter Visit Diagnoses Not on filedocumented in this encounter Additional Health Concerns Infection Onset Date Last Indicated Resolved Time CoV-Risk 02/10/2024 02/10/2024 02/21/2024 1:22 AM EST RSV 02/10/2024 02/10/2024 02/17/2024 1:25 AM EST documented as of this encounter Care Teams Head Buyer Tobacco Relationship Specialty Start Date End Date Eduardo Rutledge MD [address] [place] [address] PCP - General Internal Medicine 06/19/18 documented as of this encounter Additional Source Comments The information contained in this document represents components of the legal health record. It is not the complete legal health record.[facility]
--- OUTSIDE RECORDS SUMMARY | 2025-01-30 08:00 | XMS_ITS | Encounter Summary ---
Author Organization [facility] Address [facility] [address] [place] [address] Phone Care Team Providers Care Supervisor Cigar Making Hand Name Role Phone Eduardo Rutledge MD Primary Care Provid er Encounter Details Date Type Department Care Team (Latest Contact Info) Description 10/06/2018 Ancillary Orders [facility] for Cardiac Arrhythmias at the [employer] Heart [address], [address] [place] [address] Sumit Toledo MD, PhD [address] [place] [address] [address] [place] [address] [email or web address] Cardiac arrhythmia, unspecified cardiac arrhythmia type [...] Contact Info) Description 11/26/2024 Procedure Pass [facility] 30 [place] [address] 02/21/2025 10:30 AM EST Appointment [facility] [place] [facility] 55 [facility], [address] [place] [address] Sumit Toledo MD, PhD 55 [facility] [place] [address] [email or web address] 05/20/2025 10:30 AM EDT Appointment [facility] 30 [place] [address] Tal Stanley MD [address] [address] [email or web address] 07/12/2025 9:00 AM EDT Appointment [facility] [place] [facility] 32 [facility], 5th Floor, [address] [place] [address] Sumit Toledo MD, PhD [address] [place], [place] [address] [place] [address] [email or web address] 07/12/2025 9:30 AM EDT Office Visit [facility] Cardiology Arrhythmia Service at the [facility] 32 [facility], 5th Floor, [address] [place] [address] Lisa Mccarthy NP [address] [address] [email or web address] 07/12/2025 11:00 AM EDT Office Visit [facility] Heart Failure and Transplantation Program at the [facility] 32 [facility], 5th Floor, [address] [place] [address] Tal Stanley MD [address] [place] [address] [email or web address] documented as of this encounter Visit Diagnoses Diagnosis Cardiac arrhythmia, unspecified cardiac arrhythmia type documented in this encounter Additional Health Concerns Infection Onset Date Last Indicated Resolved Time CoV-Risk 02/10/2024 02/10/2024 02/21/2024 1:22 AM EST RSV 02/10/2024 02/10/2024 02/17/2024 1:25 AM EST documented as of this encounter Care Teams Supervisor Cigar Making Hand Relationship Specialty Start Date End Date Eduardo Rutledge MD [address] [place] [address] PCP - General Internal Medicine 06/19/18 documented as of this encounter Additional Source Comments The information contained in this document represents components of the legal health record. It is not the complete legal health record.[facility]
--- OUTSIDE RECORDS SUMMARY | 2025-01-30 08:00 | XMS_ITS | Encounter Summary ---
Author Organization [facility] Address [facility] [address] [place] [address] Phone Care Team Providers Care Printer Slotter Helper Name Role Phone Eduardo Rutledge MD Primary Care Provid er Encounter Details Date Type Department Care Team (Late st Contact Info) Description 11/09/2024 Procedure Pass [facility] [place] [facility] [address] [facility], [address] [place] [address] Social History Tobacco Use Types Packs/Day Years [...] st Contact Info) Description 11/26/2024 Procedure Pass [facility] 30 [place] [address] 02/21/2025 10:30 AM EST Appointment [facility] [place] [facility] 55 [facility], [address] [place] [address] Sumit Toledo MD, PhD 55 [facility] [place] [address] [email or web address] 05/20/2025 10:30 AM EDT Appointment [facility] 30 [place] [address] Tal Stanley MD [address] [address] [email or web address] 07/12/2025 9:00 AM EDT Appointment [facility] Cardiac EP 32 [facility], 5th Floor, [address] [place] [address] Sumit Toledo MD, PhD 55 [facility] [place] [address] [email or web address] 07/12/2025 9:30 AM EDT Office Visit [facility] Cardiology Arrhythmia Service at the [facility] 32 [facility], 5th Floor, [address] [place] [address] Lisa Mccarthy NP [address] [address] [email or web address] 07/12/2025 11:00 AM EDT Office Visit [facility] Heart Failure and Transplantation Program at the [facility] [place] [address] [facility], 5th Floor, [address] [place] [address] Tal Stanley MD 55 [address] [facility] [address] [place] [address] [email or web address] documented as of this encounter Visit Diagnoses Not on filedocumented in this encounter Care Teams Printer Slotter Helper Relationship Specialty Start Date End Date Eduardo Rutledge MD [address] [place] [address] PCP - General Internal Medicine 06/19/18 documented as of this encounter Additional Source Comments The information contained in this document represents components of the legal health record. It is not the complete legal health record.[facility]
--- OUTSIDE RECORDS SUMMARY | 2025-01-30 08:00 | XMS_ITS | Encounter Summary ---
Author Organization [facility] Address [facility] [address] [place] [address] Phone Care Team Providers Care Trouble Tracer Name Role Phone Eduardo Rutledge MD Primary Care Provid er Encounter Details Date Type Department Care Team (Late st Contact Info) Description 12/31/2024 Procedure Pass [place] [facility] [address] [place] [address], [address] [place] [address] Social History Tobacco Use Types Packs/Day Years [...] st Contact Info) Description 11/26/2024 Procedure Pass [facility] 30 [place] [address] 02/21/2025 10:30 AM EST Appointment [place] [facility] 55 [facility], [address] [place] [address] Sumit Toledo MD, PhD [address] [facility] [place] [address] [email or web address] 05/20/2025 10:30 AM EDT Appointment [facility] 30 [place] [address] Tal Stanley MD [address] [address] [email or web address] 07/12/2025 9:00 AM EDT Appointment [facility] Cardiac EP 32 [facility], 5th Floor, [address] [place] [address] Sumit Toledo MD, PhD 55 [facility]1[address] [place] [address] [email or web address] 07/12/2025 9:30 AM EDT Office Visit [facility] Cardiology Arrhythmia Service at the [facility] 32 [facility], 5th Floor, [address] [place] [address] Lisa Mccarthy NP [address] [address] [email or web address] 07/12/2025 11:00 AM EDT Office Visit [facility] Heart Failure and Transplantation Program at the [facility] [place] [address] [facility], 5th Floor, [address] [place] [address] Tal Stanley MD 55 [address] [facility] [address] [place] [address] [email or web address] documented as of this encounter Visit Diagnoses Not on filedocumented in this encounter Care Teams Trouble Tracer Relationship Specialty Start Date End Date Eduardo Rutledge MD [address] [place] [address] PCP - General Internal Medicine 06/19/18 documented as of this encounter Additional Source Comments The information contained in this document represents components of the legal health record. It is not the complete legal health record.[facility]
--- OUTSIDE RECORDS SUMMARY | 2025-01-30 08:00 | XMS_ITS | Encounter Summary ---
Author Organization [facility] Address [facility] [address] [place] [address] Phone Care Team Providers Care Track Car Operator Name Role Phone Eduardo Rutledge MD Primary Care Provid er Encounter Details Date Type Department Care Team (Late st Contact Info) Description 05/17/2020 Procedure Pass [facility] Cardiac Ultrasound 55 [place] [address] Social History Tobacco Use Types Packs/Day Years [...] st Contact Info) Description 11/26/2024 Procedure Pass [email or web address] [address] [place] [address] 02/21/2025 10:30 AM EST Appointment [place] [facility] [address] [facility], [address] [place] [address] Sumit Toledo MD, PhD 55 [facility] [place] [address] [email or web address] 05/20/2025 10:30 AM EDT Appointment [facility] 30 [place] [address] Tal Stanley MD [address] [address] [email or web address] 07/12/2025 9:00 AM EDT Appointment [facility] Cardiac EP [address] [place] [address], 5th Floor, [address] [place] [address] Sumit Toledo MD, PhD 55 [facility] [place] [address] [email or web address] 07/12/2025 9:30 AM EDT Office Visit [facility] Cardiology Arrhythmia Service at the [facility] 32 [facility], 5th Floor, [address] [place] [address] Lisa Mccarthy NP [address] [address] [email or web address] 07/12/2025 11:00 AM EDT Office Visit [facility] Heart Failure and Transplantation Program at the [facility] 32 [facility], 5th Floor, [address] [place] [address] Tal Stanley MD [address] [address] [email or web address] documented as of this encounter Visit Diagnoses Not on filedocumented in this encounter Additional Health Concerns Infection Onset Date Last Indicated Resolved Time CoV-Risk 02/10/2024 02/10/2024 02/21/2024 1:22 AM EST RSV 02/10/2024 02/10/2024 02/17/2024 1:25 AM EST documented as of this encounter Care Teams Track Car Operator Relationship Specialty Start Date End Date Eduarod Rutledge MD 10 [place] [address] PCP - General Internal Medicine 06/19/18 documented as of this encounter Additional Source Comments The information contained in this document represents components of the legal health record. It is not the complete legal health record.[facility]
--- OUTSIDE RECORDS SUMMARY | 2025-01-30 08:00 | XMS_ITS | Encounter Summary ---
Author Organization [facility] Address [facility] [address] [place] [address] Phone Care Team Providers Care Sole Blacker Name Role Phone Eduardo Rutledge MD Primary Care Provid er Reason for Visit * Reason Comments Medication Refill Encounter Details Date Type Department Care Team (Late st Contact Info) Description 09/25/2022 Refill [facility] 55 [facility], [address] [place] [address] Christ Ayon, IDONNE [address] [place] [address] [email or web address] Medication Refill Social History Tobacco Use Types [...] st Contact Info) Description 11/26/2024 Procedure Pass [email or web address] 30 [place] [address] 02/21/2025 10:30 AM EST Appointment [facility] 55 [facility], [address] [place] [address] Sumit Toledo MD, PhD [address] [place] [address] [email or web address] 05/20/2025 10:30 AM EDT Appointment [email or web address] 30 [place] [address] Tal Stanley MD [address] [address] [email or web address] 07/12/2025 9:00 AM EDT Appointment [facility] 32 [facility], 5th Floor, [address] [place] [address] Sumit Toledo MD, PhD [address] [place] [address] [email or web address] 07/12/2025 9:30 AM EDT Office Visit [facility] Arrhythmia Service at the [facility] 32 [facility], 5th Floor, [address] [place] [address] Lisa Mccarthy NP [address] [address] [email or web address] 07/12/2025 11:00 AM EDT Office Visit [facility] Heart Failure and Transplantation Program at the [facility] 32 [address] [facility], 5th Floor, [address] [place] [address] Tal Stanley MD 55 [address] [facility] [address] [place] [address] [email or web address] documented as of this encounter Visit Diagnoses Diagnosis Persistent atrial fibrillation Atrial fibrillation documented in this encounter Additional Health Concerns Infection Onset Date Last Indicated Resolved Time CoV-Risk 02/10/2024 02/10/2024 02/21/2024 1:22 AM EST RSV 02/10/2024 02/10/2024 02/17/2024 1:25 AM EST documented as of this encounter Care Teams Sole Blacker Relationship Specialty Start Date End Date Eduardo Rutledge MD [address] [place] [address] PCP - General Internal Medicine 06/19/18 documented as of this encounter Additional Source Comments The information contained in this document represents components of the legal health record. It is not the complete legal health record.[facility]
--- OUTSIDE RECORDS SUMMARY | 2025-01-30 08:00 | XMS_ITS | Encounter Summary ---
Author Organization [facility] Address [facility] [address] [place] [address] Phone Care Team Providers Care Latex Thread Machine Operator Name Role Phone Eduardo Rutledge MD Primary Care Provid er Encounter Details Date Type Department Care Team (Late st Contact Info) Description 06/27/2020 Procedure Pass [facility] Cardiology Division [address] [place] [address], [address] [place] [address] Social History Tobacco Use Types Packs/Day Years [...] st Contact Info) Description 11/26/2024 Procedure Pass [facility] [address] [place] [address] 02/21/2025 10:30 AM EST Appointment [place] [facility] 55 [facility], [address] [place] [address] Sumit Toledo MD, PhD 55 [facility]-1[address] [place] [address] [email or web address] 05/20/2025 10:30 AM EDT Appointment [facility] 30 [place] [address] Tal Stanley MD [address] [address] [email or web address] 07/12/2025 9:00 AM EDT Appointment [facility] Cardiac EP 32 [facility], 5th Floor, [address] [place] [address] Sumit Toledo MD, PhD 55 [facility] [place] [address] [email or web address] 07/12/2025 9:30 AM EDT Office Visit [facility] Cardiology Arrhythmia Service at the [facility] 32 [facility], 5th Floor, [address] [place] [address] Lisa Mccarthy NP [address] [address] [email or web address] 07/12/2025 11:00 AM EDT Office Visit [facility] Heart Failure and Transplantation Program at the [facility] 32 [facility], 5th Floor, [address] [place] [address] Tal Stanley MD [address] [address] [email or web address] documented as of this encounter Visit Diagnoses Not on filedocumented in this encounter Additional Health Concerns Infection Onset Date Last Indicated Resolved Time CoV-Risk 02/10/2024 02/10/2024 02/21/2024 1:22 AM EST RSV 02/10/2024 02/10/2024 02/17/2024 1:25 AM EST documented as of this encounter Care Teams Latex Thread Machine Operator Relationship Specialty Start Date End Date Eduardo Rutledge MD [address] [place] [address] PCP - General Internal Medicine 06/19/18 documented as of this encounter Additional Source Comments The information contained in this document represents components of the legal health record. It is not the complete legal health record.[facility]
--- OUTSIDE RECORDS SUMMARY | 2025-01-30 08:00 | XMS_ITS | Encounter Summary ---
Author Organization [facility] Address [facility] [address] [place] [address] Phone Care Team Providers Care Collar Band Creaser Name Role Phone Eduardo Rutledge MD Primary Care Provid er Encounter Details Date Type Department Care Team (Late st Contact Info) Description 11/28/2019 Procedure Pass [facility] Cardiology Division [address] [place] [address], [address] [place] [address] Social History Tobacco Use Types Packs/Day Years [...] st Contact Info) Description 11/26/2024 Procedure Pass [facility] [address] [place] [address] 02/21/2025 10:30 AM EST Appointment [place] [facility] [address] [place] [address] [address] [place] [address] Sumit Toledo MD, PhD 55 [facility]109 [place] [address] [email or web address] 05/20/2025 10:30 AM EDT Appointment [facility] [place] [facility] 30 [place] [address] Tal Stanley MD [address] [address] [email or web address] 07/12/2025 9:00 AM EDT Appointment [facility] Cardiac EP [address] [facility], 5th Floor, [address] [place] [address] Sumit Toledo MD, PhD 55 [facility] [place] [address] [email or web address] 07/12/2025 9:30 AM EDT Office Visit [facility] Cardiology Arrhythmia Service at the [facility] [address] [facility], 5th Floor, [address] [place] [address] Lisa Mccarthy NP [address] [address] [email or web address] 07/12/2025 11:00 AM EDT Office Visit [facility] Heart Failure and Transplantation Program at the [facility] [address] [facility], 5th Floor, [address] [place] [address] Tal Stanley MD [address] [address] [email or web address] documented as of this encounter Visit Diagnoses Not on filedocumented in this encounter Additional Health Concerns Infection Onset Date Last Indicated Resolved Time CoV-Risk 02/10/2024 02/10/2024 02/21/2024 1:22 AM EST RSV 02/10/2024 02/10/2024 02/17/2024 1:25 AM EST documented as of this encounter Care Teams Collar Band Creaser Relationship Specialty Start Date End Date Eduardo Rutledge MD [address] [place] [address] PCP - General Internal Medicine 06/19/18 documented as of this encounter Additional Source Comments The information contained in this document represents components of the legal health record. It is not the complete legal health record.[facility]
--- OUTSIDE RECORDS SUMMARY | 2025-01-30 08:00 | XMS_ITS | Encounter Summary ---
Author Organization [facility] Address [facility] [address] [place] [address] Phone Care Team Providers Care Antisqueak Filler Name Role Phone Eduardo Rutledge MD Primary Care Provid er Encounter Details Date Type Department Care Team (Late st Contact Info) Description 12/10/2020 Procedure Pass [facility] [address] [place] [address], [address] [place] [address] Social History Tobacco Use Types Packs/Day Years [...] st Contact Info) Description 11/26/2024 Procedure Pass [facility] [address] [place] [address] 02/21/2025 10:30 AM EST Appointment [facility] 55 [facility], [address] [place] [address] Sumit Toledo MD, PhD 55 [facility]109 [place] [address] [email or web address] 05/20/2025 10:30 AM EDT Appointment [facility] [place] [facility] 30 [place] [address] Tal Stanley MD [address] [address] [email or web address] 07/12/2025 9:00 AM EDT Appointment [facility] Cardiac EP 32 [facility], 5th Floor, [address] [place] [address] Sumit Toledo MD, PhD 55 [facility] [place] [address] [email or web address] 07/12/2025 9:30 AM EDT Office Visit [facility] Cardiology Arrhythmia Service at the [facility] 32 [facility], 5th Floor, [address] [place] [address] Lisa Mccarthy NP [address] [address] [email or web address] 07/12/2025 11:00 AM EDT Office Visit [facility] Heart Failure and Transplantation Program at the [facility] 32 [facility], 5th Floor, [address] [place] [address] Tal Stanley MD [address] [address] [email or web address] documented as of this encounter Visit Diagnoses Not on filedocumented in this encounter Additional Health Concerns Infection Onset Date Last Indicated Resolved Time CoV-Risk 02/10/2024 02/10/2024 02/21/2024 1:22 AM EST RSV 02/10/2024 02/10/2024 02/17/2024 1:25 AM EST documented as of this encounter Care Teams Antisqueak Filler Relationship Specialty Start Date End Date Eduardo Rutledge MD [address] [place] [id number] PCP - General Internal Medicine 06/19/18 documented as of this encounter Additional Source Comments The information contained in this document represents components of the legal health record. It is not the complete legal health record.[facility]
--- OUTSIDE RECORDS SUMMARY | 2025-01-30 08:00 | XMS_ITS | Encounter Summary ---
Author Organization [facility] Address [facility] [address] [place] [address] Phone Care Team Providers Care Barrel Roller Name Role Phone Eduardo Rutledge MD Primary Care Provid er Encounter Details Date Type Department Care Team (Late st Contact Info) Description 03/11/2021 Procedure Pass [place] [facility] [address] [place] [address], [address] [place] [address] Social History Tobacco Use Types Packs/Day Years [...] st Contact Info) Description 11/26/2024 Procedure Pass [employer] [facility] [address] [place] [address] 02/21/2025 10:30 AM EST Appointment [place] [facility] 55 [facility], [address] [place] [address] Sumit Toledo MD, PhD 55 [facility]-[address] [place] [address] [email or web address] 05/20/2025 10:30 AM EDT Appointment [facility] [place] [facility] 30 [place] [address] Tal Stanley MD [address] [address] [email or web address] 07/12/2025 9:00 AM EDT Appointment [facility] Cardiac EP 32 [facility], 5th Floor, [address] [place] [address] Sumit Toledo MD, PhD 55 [facility] [place] [address] [email or web address] 07/12/2025 9:30 AM EDT Office Visit [facility] Cardiology Arrhythmia Service at the [facility] 32 [facility], 5th Floor, [address] [place] [address] Lisa Mccarthy NP [address] [address] [email or web address] 07/12/2025 11:00 AM EDT Office Visit [facility] Heart Failure and Transplantation Program at the [facility] 32 [facility], 5th Floor, [address] [place] [address] Tal Stanley MD [address] [address] [email or web address] documented as of this encounter Visit Diagnoses Not on filedocumented in this encounter Additional Health Concerns Infection Onset Date Last Indicated Resolved Time CoV-Risk 02/10/2024 02/10/2024 02/21/2024 1:22 AM EST RSV 02/10/2024 02/10/2024 02/17/2024 1:25 AM EST documented as of this encounter Care Teams Barrel Roller Relationship Specialty Start Date End Date Eduardo Rutledge MD [address] [place] [address] PCP - General Internal Medicine 06/19/18 documented as of this encounter Additional Source Comments The information contained in this document represents components of the legal health record. It is not the complete legal health record.[facility]
--- OUTSIDE RECORDS SUMMARY | 2025-01-30 08:01 | XMS_ITS | Encounter Summary ---
Author Organization [facility] Address [facility] [address] [place] [address] Phone Care Team Providers Care Bee Robber Name Role Phone Eduardo Rutledge MD Primary Care Provid er Encounter Details Date Type Department Care Team (Late st Contact Info) Description 05/22/2020 Procedure Pass [place] [facility] 32 [facility], 5th Floor, [address] [place] [address] Social History Tobacco Use Types Packs/Day Years [...] st Contact Info) Description 11/26/2024 Procedure Pass [employer] [facility] [address] [place] [address] 02/21/2025 10:30 AM EST Appointment [place] [facility] 55 [facility], [address] [place] [address] Sumit Toledo MD, PhD 55 [facility] [place] [address] [email or web address] 05/20/2025 10:30 AM EDT Appointment [facility] [place] [facility] 30 [place] [address] Tal Stanley MD [address] [address] [email or web address] 07/12/2025 9:00 AM EDT Appointment [facility] Cardiac EP 32 [facility], 5th Floor, [address] [place] [address] Sumit Toledo MD, PhD 55 [facility]9 [place] [address] [email or web address] 07/12/2025 9:30 AM EDT Office Visit [facility] Cardiology Arrhythmia Service at the [facility] 32 [facility], 5th Floor, [address] [place] [address] Lisa Mccarthy NP [address] [address] [email or web address] 07/12/2025 11:00 AM EDT Office Visit [facility] Heart Failure and Transplantation Program at the [facility] 32 [facility], 5th Floor, [address] [place] [address] Tal Stanley MD [address] [address] [email or web address] documented as of this encounter Visit Diagnoses Not on filedocumented in this encounter Additional Health Concerns Infection Onset Date Last Indicated Resolved Time CoV-Risk 02/10/2024 02/10/2024 02/21/2024 1:22 AM EST RSV 02/10/2024 02/10/2024 02/17/2024 1:25 AM EST documented as of this encounter Care Teams Bee Robber Relationship Specialty Start Date End Date Eduardo Rutledge MD [address] [place] [address] PCP - General Internal Medicine 06/19/18 documented as of this encounter Additional Source Comments The information contained in this document represents components of the legal health record. It is not the complete legal health record.[facility]
--- OUTSIDE RECORDS SUMMARY | 2025-01-30 08:01 | XMS_ITS | Encounter Summary ---
Author Organization [facility] Address [facility] [address] [place] [address] Phone Care Team Providers Care Division Order Technician Name Role Phone Eduardo Rutledge MD Primary Care Provid er Encounter Details Date Type Department Care Team (Late st Contact Info) Description 10/21/2023 Procedure Pass [place] [facility] 55 [facility], [address] [place] [address] Social History Tobacco Use Types Packs/Day Years [...] st Contact Info) Description 11/26/2024 Procedure Pass [facility] [facility] 30 [place] [address] 02/21/2025 10:30 AM EST Appointment [place] [facility] 55 [facility], [address] [place] [address] Sumit Toledo MD, PhD 55 [facility]-1[address] [place] [address] [email or web address] 05/20/2025 10:30 AM EDT Appointment [facility] 30 [place] [address] Tal Stanley MD [address] [address] [email or web address] 07/12/2025 9:00 AM EDT Appointment [facility] Cardiac EP 32 [facility], 5th Floor, [address] [place] [address] Sumit Toledo MD, PhD 55 [facility] [place] [address] [email or web address] 07/12/2025 9:30 AM EDT Office Visit [facility] Cardiology Arrhythmia Service at the [facility] 32 [facility], 5th Floor, [address] [place] [address] Lisa Mccarthy NP [address] [address] [email or web address] 07/12/2025 11:00 AM EDT Office Visit [facility] Heart Failure and Transplantation Program at the [facility] [place] [address] [facility], 5th Floor, [address] [place] [address] Tal Stanley MD [address] [facility] [address] [place] [address] [email or web address] documented as of this encounter Visit Diagnoses Not on filedocumented in this encounter Additional Health Concerns Infection Onset Date Last Indicated Resolved Time CoV-Risk 02/10/2024 02/10/2024 02/21/2024 1:22 AM EST RSV 02/10/2024 02/10/2024 02/17/2024 1:25 AM EST documented as of this encounter Care Teams Division Order Technician Relationship Specialty Start Date End Date Eduardo Rutledge MD [address] [place] [address] PCP - General Internal Medicine 06/19/18 documented as of this encounter Additional Source Comments The information contained in this document represents components of the legal health record. It is not the complete legal health record.[facility]
--- OUTSIDE RECORDS SUMMARY | 2025-01-30 08:01 | XMS_ITS | Encounter Summary ---
Author Organization [facility] Address [facility] [address] [place] [address] Phone Care Team Providers Care Straight Ruling Machine Operator Name Role Phone Eduardo Rutledge MD Primary Care Provid er Encounter Details Date Type Department Care Team (Late st Contact Info) Description 12/05/2024 Procedure Pass [place] [facility] [address] [place] [address], [address] [place] [address] Social History Tobacco Use Types Packs/Day Years [...] st Contact Info) Description 11/26/2024 Procedure Pass [employer] [facility] 30 [place] [address] 02/21/2025 10:30 AM EST Appointment [place] [facility] 55 [facility], [address] [place] [address] Sumit Toledo MD, PhD 55 [facility]-[address] [place] [address] [email or web address] 05/20/2025 10:30 AM EDT Appointment [facility] 30 [place] [address] Tal Stanley MD [address] [address] [email or web address] 07/12/2025 9:00 AM EDT Appointment [facility] Cardiac EP [address] [facility], 5th Floor, [address] [place] [address] Sumit Toledo MD, PhD 55 [facility] [place] [address] [email or web address] 07/12/2025 9:30 AM EDT Office Visit [facility] Cardiology Arrhythmia Service at the [facility] [address] [facility], 5th Floor, [address] [place] [address] Lisa Mccarthy NP [address] [address] [email or web address] 07/12/2025 11:00 AM EDT Office Visit [facility] Heart Failure and Transplantation Program at the [facility] Heart [facility] [address] [facility], 5th Floor, [address] [place] [address] Tal Stanley MD 55 [address] [facility] [address] [place] [address] [email or web address] documented as of this encounter Visit Diagnoses Not on filedocumented in this encounter Care Teams Straight Ruling Machine Operator Relationship Specialty Start Date End Date Eduardo Rutledge MD [address] [place] [address] PCP - General Internal Medicine 06/19/18 documented as of this encounter Additional Source Comments The information contained in this document represents components of the legal health record. It is not the complete legal health record.[facility]
--- OUTSIDE RECORDS SUMMARY | 2025-01-30 08:01 | XMS_ITS | Encounter Summary ---
Author Organization [facility] Address [facility] [address] [place] [address] Phone Care Team Providers Care Packager Head Name Role Phone Mercedes Melgar MD Primary Care Provider Eduardo Rutledge MD Primary Care Provid er Encounter Details Date Type Department Care Team (Latest Contact Info) Description 03/02/2017 Ancillary Orders [facility] Cardiac Arrhythmias at the [facility] Heart [address], [address] [place] [address] Sumit Toledo MD, PhD [address] [place] [address]-[address] [place] [address] [email or web address] Cardiac arrhythmia, unspecified cardiac arrhythmia type Social [...] st Contact Info) Description 11/26/2024 Procedure Pass [facility] 30 [place] [address] 02/21/2025 10:30 AM EST Appointment [place] [facility] [address] [facility], [address] [place] [address] Sumit Toledo MD, PhD 55 [facility]-1[facility] [place] [address] [email or web address] 05/20/2025 10:30 AM EDT Appointment [facility] [employer] [facility] 30 [place] [address] Tal Stanley MD [address] [address] [email or web address] 07/12/2025 9:00 AM EDT Appointment [facility] Cardiac EP 32 [facility], 5th Floor, [address] [place] [address] Sumit Toledo MD, PhD 55 [facility] [place] [address] [email or web address] 07/12/2025 9:30 AM EDT Office Visit [facility] Cardiology Arrhythmia Service at the [facility] 32 [facility], 5th Floor, [address] [place] [address] Lisa Mccarthy NP [address] [address] [email or web address] 07/12/2025 11:00 AM EDT Office Visit [facility] Heart Failure and Transplantation Program at the [facility] 32 [address] [facility], 5th Floor, [address] [place] [address] Tal Stanley MD [address] [place] [address] [email or web address] documented as of this encounter Visit Diagnoses Diagnosis Cardiac arrhythmia, unspecified cardiac arrhythmia type documented in this encounter Additional Health Concerns Infection Onset Date Last Indicated Resolved Time CoV-Risk 02/10/2024 02/10/2024 02/21/2024 1:22 AM EST RSV 02/10/2024 02/10/2024 02/17/2024 1:25 AM EST documented as of this encounter Care Teams Packager Head Relationship Specialty Start Date End Date Mercedes Melgar MD [address] [place] [address] PCP - General Pulmonary Disease 02/28/17 06/18/18 Eduardo Rutledge MD [address] [place] [address] PCP - General Internal Medicine 06/19/18 documented as of this encounter Additional Source Comments The information contained in this document represents components of the legal health record. It is not the complete legal health record.[facility]
--- OUTSIDE RECORDS SUMMARY | 2025-01-30 08:01 | XMS_ITS | Encounter Summary ---
Author Organization [facility] Address [facility] [address] [place] [address] Phone Care Team Providers Care Technician Anatomic Pathology Name Role Phone Eduardo Rutledge MD Primary Care Provid er Encounter Details Date Type Department Care Team (Late st Contact Info) Description 07/09/2024 Procedure Pass [place] [facility] 55 [facility], [address] [place] [address] Social History Tobacco Use Types Packs/Day Years [...] st Contact Info) Description 11/26/2024 Procedure Pass [employer] [facility] 30 [place] [address] 02/21/2025 10:30 AM EST Appointment [place] [facility] 55 [facility], [address] [place] [address] Sumit Toledo MD, PhD 55 [facility]-1[address] [place] [address] [email or web address] 05/20/2025 10:30 AM EDT Appointment [facility] [employer] [facility] 30 [place] [address] Tal Stanley MD [address] [address] [email or web address] 07/12/2025 9:00 AM EDT Appointment [facility] Cardiac EP 32 [facility], 5th Floor, [address] [place] [address] Sumit Toledo MD, PhD 55 [facility] [place] [address] [email or web address] 07/12/2025 9:30 AM EDT Office Visit [facility] Cardiology Arrhythmia Service at the [facility] 32 [facility], 5th Floor, [address] [place] [address] Lias Mccarthy NP [address] [address] [email or web address] 07/12/2025 11:00 AM EDT Office Visit [facility] Heart Failure and Transplantation Program at the [facility] Heart [place] [address] [facility], 5th Floor, [address] [place] [address] Tal Stanley MD 55 [address] [facility] [address] [place] [address] [email or web address] documented as of this encounter Visit Diagnoses Not on filedocumented in this encounter Care Teams Technician Anatomic Pathology Relationship Specialty Start Date End Date Eduardo Rutledge MD [address] [place] [address] PCP - General Internal Medicine 06/19/18 documented as of this encounter Additional Source Comments The information contained in this document represents components of the legal health record. It is not the complete legal health record.[facility]
--- OUTSIDE RECORDS SUMMARY | 2025-01-30 08:01 | XMS_ITS | Encounter Summary ---
Author Organization [facility] Address [facility] [address] [place] [address] Phone Care Team Providers Care Timber Management Technician Name Role Phone Eduardo Rutledge MD Primary Care Provid er Encounter Details Date Type Department Care Team (Late st Contact Info) Description 11/09/2024 Procedure Pass [place] [facility] 55 [facility], [address] [place] [address] Social History Tobacco Use Types Packs/Day Years [...] st Contact Info) Description 11/26/2024 Procedure Pass [place] [facility] 30 [place] [address] 02/21/2025 10:30 AM EST Appointment [place] [facility] [address] [facility], [address] [place] [address] Sumit Toledo MD, PhD 55 [facility]-1[address] [place] [address] [email or web address] 05/20/2025 10:30 AM EDT Appointment [facility] [employer] [facility] 30 [place] [address] Tal Stanley MD [address] [address] [email or web address] 07/12/2025 9:00 AM EDT Appointment [facility] Cardiac EP 32 [facility], 5th Floor, [address] [place] [address] Sumit Toledo MD, PhD 55 [facility] [place] [address] [email or web address] 07/12/2025 9:30 AM EDT Office Visit [facility]ia [facility] at the [facility] 32 [facility], 5th Floor, [address] [place] [address] Lisa Mccarthy NP [address] [address] [email or web address] 07/12/2025 11:00 AM EDT Office Visit [facility] Heart Failure and Transplantation Program at the [facility] [place] [address] [facility], 5th Floor, [address] [place] [address] Tal Stanley MD 55 [address] [facility] [address] [place] [address] [email or web address] documented as of this encounter Visit Diagnoses Not on filedocumented in this encounter Care Teams Timber Management Technician Relationship Specialty Start Date End Date Eduardo Rutledge MD [address] [place] [address] PCP - General Internal Medicine 06/19/18 documented as of this encounter Additional Source Comments The information contained in this document represents components of the legal health record. It is not the complete legal health record.[facility]
--- OUTSIDE RECORDS SUMMARY | 2025-01-30 08:01 | XMS_ITS | Encounter Summary ---
Author Organization [facility] Address [facility] [address] [place] [address] Phone Care Team Providers Care Car Pincher Name Role Phone Eduardo Rutledge MD Primary Care Provid er Encounter Details Date Type Department Care Team (Late st Contact Info) Description 01/10/2024 Procedure Pass [place] [facility] [address] [facility], [address] [place] [address] Social History Tobacco Use Types Packs/Day Years [...] st Contact Info) Description 11/26/2024 Procedure Pass [employer] [facility] 30 [place] [address] 02/21/2025 10:30 AM EST Appointment [place] [facility] 55 [facility], [address] [place] [address] Sumit Toledo MD, PhD 55 [facility]-1[address]109 [place] [address] [email or web address] 05/20/2025 10:30 AM EDT Appointment [facility] [employer] [facility] 30 [place] [address] Tal Stanley MD [address] [address] [email or web address] 07/12/2025 9:00 AM EDT Appointment [facility] Cardiac EP 32 [facility], 5th Floor, [address] [place] [address] Sumit Toledo MD, PhD 55 [facility] [place] [address] [email or web address] 07/12/2025 9:30 AM EDT Office Visit [facility] Cardiology Arrhythmia Service at the [facility] 32 [facility], 5th Floor, [address] [place] [address] Lisa Mccarthy NP [address] [address] [email or web address] 07/12/2025 11:00 AM EDT Office Visit [facility] Heart Failure and Transplantation Program at the [facility] [place] [address] [facility], 5th Floor, [address] [place] [address] Tal Stanley MD [address] [facility] [address] [place] [address] [email or web address] documented as of this encounter Visit Diagnoses Not on filedocumented in this encounter Additional Health Concerns Infection Onset Date Last Indicated Resolved Time CoV-Risk 02/10/2024 02/10/2024 02/21/2024 1:22 AM EST RSV 02/10/2024 02/10/2024 02/17/2024 1:25 AM EST documented as of this encounter Care Teams Car Pincher Relationship Specialty Start Date End Date Eduardo Rutledge MD [address] [place] [address] PCP - General Internal Medicine 06/19/18 documented as of this encounter Additional Source Comments The information contained in this document represents components of the legal health record. It is not the complete legal health record.[facility]
--- OUTSIDE RECORDS SUMMARY | 2025-01-30 08:01 | XMS_ITS | Encounter Summary ---
Author Organization [facility] Address [facility] [address] [place] [address] Phone Care Team Providers Care Wheel Filler Name Role Phone Eduardo Rutledge MD Primary Care Provid er Encounter Details Date Type Department Care Team (Late st Contact Info) Description 10/05/2024 Procedure Pass [facility] 55 [facility], [address] [place] [address] Social History Tobacco Use Types Packs/Day Years [...] st Contact Info) Description 11/26/2024 Procedure Pass [facility] 30 [place] [address] 02/21/2025 10:30 AM EST Appointment [facility] 55 [facility], [address] [place] [address] Sumit Toledo MD, PhD 55 [facility]-[address] [place] [address] [email or web address] 05/20/2025 10:30 AM EDT Appointment [facility] 30 [place] [address] Tal Stanley MD [address] [address] [email or web address] 07/12/2025 9:00 AM EDT Appointment [facility] Cardiac EP 32 [facility], 5th Floor, [address] [place] [address] Sumit Toledo MD, PhD 55 [facility] [place] [address] [email or web address] 07/12/2025 9:30 AM EDT Office Visit [facility] Cardiology Arrhythmia Service at the [facility] 32 [facility], 5th Floor, [address] [place] [address] Lisa Mccarthy NP [address] [address] [email or web address] 07/12/2025 11:00 AM EDT Office Visit [facility] Heart Failure and Transplantation Program at the [facility] [employer] [address] [facility], 5th Floor, [address] [place] [address] Tal Stanley MD 55 [address] [facility] [address] [place] [address] [email or web address] documented as of this encounter Visit Diagnoses Not on filedocumented in this encounter Care Teams Wheel Filler Relationship Specialty Start Date End Date Eduardo Rutledge MD [address] [place] [address] PCP - General Internal Medicine 06/19/18 documented as of this encounter Additional Source Comments The information contained in this document represents components of the legal health record. It is not the complete legal health record.[facility]
--- OUTSIDE RECORDS SUMMARY | 2025-01-30 08:01 | XMS_ITS | Encounter Summary ---
Author Organization [facility] Address [address] [place] [address] [place] [address] Phone Care Team Providers Care Wood Drill Operator Name Role Phone Eduardo Rutledge MD Primary Care Provid er Encounter Details Date Type Department Care Team (Late st Contact Info) Description 05/13/2020 Procedure Pass [facility] Pacer Lab 55 [facility], Floor 1, [address] [place] [address] Social History Tobacco Use Types [...] st Contact Info) Description 11/26/2024 Procedure Pass [facility] [address] [place] [address] 02/21/2025 10:30 AM EST Appointment [facility] 55 [facility], [address] [place] [address] Sumit Toledo MD, PhD 55 [facility] [place] [address] [email or web address] 05/20/2025 10:30 AM EDT Appointment [facility] 30 [place] [address] Tal Stanley MD [address] [address] [email or web address] 07/12/2025 9:00 AM EDT Appointment [facility] Cardiac EP 32 [facility], 5th Floor, [address] [place] [address] Sumit Toledo MD, PhD 55 [facility]1109 [place] [address] [email or web address] 07/12/2025 9:30 AM EDT Office Visit [facility] Cardiology Arrhythmia Service at the [facility] 32 [facility], 5th Floor, [address] [place] [address] Lisa Mccarthy NP [address] [address] [email or web address] 07/12/2025 11:00 AM EDT Office Visit [facility] Heart Failure and Transplantation Program at the [facility] 32 [facility], 5th Floor, [address] [place] [address] Tal Stanley MD [address] [address] [email or web address] documented as of this encounter Visit Diagnoses Not on filedocumented in this encounter Additional Health Concerns Infection Onset Date Last Indicated Resolved Time CoV-Risk 02/10/2024 02/10/2024 02/21/2024 1:22 AM EST RSV 02/10/2024 02/10/2024 02/17/2024 1:25 AM EST documented as of this encounter Care Teams Wood Drill Operator Relationship Specialty Start Date End Date Eduardo Rutledge MD [address] [place] [address] PCP - General Internal Medicine 06/19/18 documented as of this encounter Additional Source Comments The information contained in this document represents components of the legal health record. It is not the complete legal health record.[facility]
--- OUTSIDE RECORDS SUMMARY | 2025-01-30 08:01 | XMS_ITS | Encounter Summary ---
Author Organization [facility] Address [facility] [address] [place] [address] Phone Care Team Providers Care Chemicals Fermentation Operator Name Role Phone Eduardo Rutledge MD Primary Care Provid er Encounter Details Date Type Department Care Team (Late st Contact Info) Description 03/10/2022 Procedure Pass [facility] [address] [place] [address], [address] [place] [address] Social History Tobacco Use Types Packs/Day Years [...] st Contact Info) Description 11/26/2024 Procedure Pass [facility] [address] [place] [address] 02/21/2025 10:30 AM EST Appointment [place] [facility] 55 [facility], [address] [place] [address] Sumit Toledo MD, PhD 55 [facility]-1[facility]109 [place] [address] [email or web address] 05/20/2025 10:30 AM EDT Appointment [facility] 30 [place] [address] Tal Stanley MD [address] [address] [email or web address] 07/12/2025 9:00 AM EDT Appointment [facility] Cardiac EP 32 [facility], 5th Floor, [address] [place] [address] Sumit Toledo MD, PhD 55 [facility] [place] [address] [email or web address] 07/12/2025 9:30 AM EDT Office Visit [facility] Cardiology Arrhythmia Service at the [facility] 32 [facility], 5th Floor, [address] [place] [address] Lisa Mccarthy NP [address] [address] [email or web address] 07/12/2025 11:00 AM EDT Office Visit [facility] Heart Failure and Transplantation Program at the [facility] 32 [facility], 5th Floor, [address] [place] [address] Tal Stanley MD [address] [address] [email or web address] documented as of this encounter Visit Diagnoses Not on filedocumented in this encounter Additional Health Concerns Infection Onset Date Last Indicated Resolved Time CoV-Risk 02/10/2024 02/10/2024 02/21/2024 1:22 AM EST RSV 02/10/2024 02/10/2024 02/17/2024 1:25 AM EST documented as of this encounter Care Teams Chemicals Fermentation Operator Relationship Specialty Start Date End Date Eduardo Rutledge MD [address] [place] [phone] PCP - General Internal Medicine 06/19/18 documented as of this encounter Additional Source Comments The information contained in this document represents components of the legal health record. It is not the complete legal health record.[facility]
--- OUTSIDE RECORDS SUMMARY | 2025-01-30 08:01 | XMS_ITS | Encounter Summary ---
Author Organization [facility] Address [facility] [address] [place] [address] Phone Care Team Providers Care Patient Ambassador Name Role Phone Eduardo Rutledge MD Primary Care Provid er Encounter Details Date Type Department Care Team (Late st Contact Info) Description 02/06/2024 Procedure Pass [facility] [address] [place] [address], [address] [place] [address] Social History Tobacco Use Types Packs/Day Years Used Date Smoking Tobacco: Never Education Answer Date Recorded Are you interested in more education? Not on amyte e 06/09/2022 Are you concerned about learning? [...] st Contact Info) Description 11/26/2024 Procedure Pass [facility] 30 [place] [address] 02/21/2025 10:30 AM EST Appointment [facility] 55 [facility], [address] [place] [address] Sumit Toledo MD, PhD 55 [facility] [place] [address] [email or web address] 05/20/2025 10:30 AM EDT Appointment [facility] 30 [place] [address] Tal Stanley MD [address] [address] [email or web address] 07/12/2025 9:00 AM EDT Appointment [facility] Cardiac EP 32 [facility], 5th Floor, [address] [place] [address] Sumit Toledo MD, PhD 55 [facility] [place] [address] [email or web address] 07/12/2025 9:30 AM EDT Office Visit [facility] Cardiology Arrhythmia Service at the [facility] 32 [facility], 5th Floor, [address] [place] [address] Lisa Mccarthy NP [address] [address] [email or web address] 07/12/2025 11:00 AM EDT Office Visit [facility] Heart Failure and Transplantation Program at the [facility] [place] [address] [facility], 5th Floor, [address] [place] [address] Tal Stanley MD 55 [address] [facility] [address] [place] [address] [email or web address] documented as of this encounter Visit Diagnoses Not on filedocumented in this encounter Additional Health Concerns Infection Onset Date Last Indicated Resolved Time CoV-Risk 02/10/2024 02/10/2024 02/21/2024 1:22 AM EST RSV 02/10/2024 02/10/2024 02/17/2024 1:25 AM EST documented as of this encounter Care Teams Patient Ambassador Relationship Specialty Start Date End Date Eduardo Rutledge MD [address] [place] [address] PCP - General Internal Medicine 06/19/18 documented as of this encounter Additional Source Comments The information contained in this document represents components of the legal health record. It is not the complete legal health record.[facility]
--- OUTSIDE RECORDS SUMMARY | 2025-01-30 08:01 | XMS_ITS | Encounter Summary ---
Author Organization [facility] Address [facility] [address] [place] [address] Phone Care Team Providers Care Diesel Electrician Name Role Phone Eduardo Rutledge MD Primary Care Provid er Encounter Details Date Type Department Care Team (Late st Contact Info) Description 12/09/2021 Procedure Pass [place] [facility] [address] [place] [address], [address] [place] [address] Social History Tobacco Use Types Packs/Day Years [...] st Contact Info) Description 11/26/2024 Procedure Pass [facility] [address] [place] [address] 02/21/2025 10:30 AM EST Appointment [facility] 55 [facility], [address] [place] [address] Sumit Toledo MD, PhD 55 [facility]-1[facility]109 [place] [address] [email or web address] 05/20/2025 10:30 AM EDT Appointment [facility] [place] [facility] 30 [place] [address] Tla Stanley MD [address] [address] [email or web address] 07/12/2025 9:00 AM EDT Appointment [facility] Cardiac EP [address], 5th Floor, [address] [place] [address] Sumit Toledo MD, PhD 55 [facility] [place] [address] [email or web address] 07/12/2025 9:30 AM EDT Office Visit [facility] Cardiology Arrhythmia Service at the [facility] [address] [facility], 5th Floor, [address] [place] [address] Lisa Mccarthy NP [address] [address] [email or web address] 07/12/2025 11:00 AM EDT Office Visit [facility] Heart Failure and Transplantation Program at the [facility] [address], 5th Floor, [address] [place] [address] Tal Stanley MD [address] [address] [email or web address] documented as of this encounter Visit Diagnoses Not on filedocumented in this encounter Additional Health Concerns Infection Onset Date Last Indicated Resolved Time CoV-Risk 02/10/2024 02/10/2024 02/21/2024 1:22 AM EST RSV 02/10/2024 02/10/2024 02/17/2024 1:25 AM EST documented as of this encounter Care Teams Diesel Electrician Relationship Specialty Start Date End Date Eduardo Rutledge MD [address] [place] [address] PCP - General Internal Medicine 06/19/18 documented as of this encounter Additional Source Comments The information contained in this document represents components of the legal health record. It is not the complete legal health record.[facility]
--- OUTSIDE RECORDS SUMMARY | 2025-01-30 08:01 | XMS_ITS | Encounter Summary ---
Author Organization [facility] Address On license of [facility] [address] [place] [address] Phone Care Team Providers Care Robotic Welder Name Role Phone Eduardo Rutledge MD Primary Care Provid er Encounter Details Date Type Department Care Team (Late st Contact Info) Description 08/16/2024 Procedure Pass [facility] [address] [facility], [address] [place] [address] Social History Tobacco Use Types Packs/Day Years [...] st Contact Info) Description 11/26/2024 Procedure Pass [facility] 30 [place] [address] 02/21/2025 10:30 AM EST Appointment [facility] 55 [facility], [address] [place] [address] Sumit Toledo MD, PhD 55 [facility]-1[address]109 [place] [address] [email or web address] 05/20/2025 10:30 AM EDT Appointment [facility] 30 [place] [address] Tal Stanley MD [address] [address] [email or web address] 07/12/2025 9:00 AM EDT Appointment [facility] Cardiac EP 32 [facility], 5th Floor, [address] [place] [address] Sumit Toledo MD, PhD 55 [facility] [place] [address] [email or web address] 07/12/2025 9:30 AM EDT Office Visit [facility] Cardiology Arrhythmia Service at the [facility] 32 [facility], 5th Floor, [address] [place] [address] Lisa Mccarthy NP [address] [address] [email or web address] 07/12/2025 11:00 AM EDT Office Visit [facility] Heart Failure and Transplantation Program at the [facility] [place] 32 [address] [facility], 5th Floor, [address] [place] [address] Tal Stanley MD 55 [address] [facility] [address] [place] [address] [email or web address] documented as of this encounter Visit Diagnoses Not on filedocumented in this encounter Care Teams Robotic Welder Relationship Specialty Start Date End Date Eduardo Rutledge MD [address] [place] [address] PCP - General Internal Medicine 06/19/18 documented as of this encounter Additional Source Comments The information contained in this document represents components of the legal health record. It is not the complete legal health record.[facility]
--- OUTSIDE RECORDS SUMMARY | 2025-01-30 08:01 | XMS_ITS | Encounter Summary ---
Author Organization [facility] Address [facility] [address] [place] [address] Phone Care Team Providers Care Reed Fixer Name Role Phone Eduardo Rutledge MD Primary Care Provid er Encounter Details Date Type Department Care Team (Late st Contact Info) Description 06/09/2022 Procedure Pass [facility] Cardiac EP 32 [facility], 5th Floor, [address] [place] [address] Social History Tobacco Use Types Packs/Day Years [...] Contact Info) Description 11/26/2024 Procedure Pass [facility] 30 [place] [address] 02/21/2025 10:30 AM EST Appointment [facility] Cardiology Division 55 [facility], [address] [place] [address] Sumit Toledo MD, PhD 55 [facility]-1[facility]109 [place] [address] [email or web address] 05/20/2025 10:30 AM EDT Appointment [facility] [place] [facility] 30 [place] [address] Tal Stanley MD [address] [address] [email or web address] 07/12/2025 9:00 AM EDT Appointment [facility] 32 [facility], 5th Floor, [address] [place] [address] Sumit Toledo MD, PhD 55 [facility]1109 [place] [address] [email or web address] 07/12/2025 9:30 AM EDT Office Visit [facility] Cardiology Arrhythmia Service at the [facility] 32 [facility], 5th Floor, [address] [place] [address] Lisa Mccarthy NP [address] [address] [email or web address]@[email or web address] 07/12/2025 11:00 AM EDT Office Visit [facility] Heart Failure and Transplantation Program at the [facility] 32 [facility], 5th Floor, [address] [place] [address] Tal Stanley MD [address] [place] [address] [email or web address] documented as of this encounter Visit Diagnoses Not on filedocumented in this encounter Additional Health Concerns Infection Onset Date Last Indicated Resolved Time CoV-Risk 02/10/2024 02/10/2024 02/21/2024 1:22 AM EST RSV 02/10/2024 02/10/2024 02/17/2024 1:25 AM EST documented as of this encounter Care Teams Reed Fixer Relationship Specialty Start Date End Date Eduardo Rutledge MD [address] [place] [address] PCP - General Internal Medicine 06/19/18 documented as of this encounter Additional Source Comments The information contained in this document represents components of the legal health record. It is not the complete legal health record.[facility]
--- OUTSIDE RECORDS SUMMARY | 2025-01-30 08:01 | XMS_ITS | Encounter Summary ---
Author Organization [facility] Address [address] [place] [address] [place] [address] Phone Care Team Providers Care Physical Chemistry Professor Name Role Phone Eduardo Rutledge MD Primary Care Provid er Encounter Details Date Type Department Care Team (Late st Contact Info) Description 05/01/2020 Procedure Pass [facility] Pacer Lab 55 [facility], Floor 1, [address] [place] [address] Social History Tobacco Use Types [...] st Contact Info) Description 11/26/2024 Procedure Pass [facility] [address] [place] [address] 02/21/2025 10:30 AM EST Appointment [place] [facility] 55 [facility], [address] [place] [address] Sumit Toledo MD, PhD 55 [facility]109 [place] [address] [email or web address] 05/20/2025 10:30 AM EDT Appointment [facility] [place] [facility] 30 [place] [address] Tal Stanley MD [address] [address] [email or web address] 07/12/2025 9:00 AM EDT Appointment [facility] Cardiac EP 32 [facility], 5th Floor, [address] [place] [address] Sumit oTledo MD, PhD 55 [facility]1109 [place] [address] [email or web address] 07/12/2025 9:30 AM EDT Office Visit [facility] Cardiology [facility] at [facility] 32 [facility], 5th Floor, [address] [place] [address] Lisa Mccarthy NP [address] [address] [email or web address] 07/12/2025 11:00 AM EDT Office Visit [facility] Heart Failure and Transplantation Program at the [facility] 32 [facility], 5th Floor, [address] [place] [address] Tal Stanley MD [address] [address] [email or web address] documented as of this encounter Visit Diagnoses Not on filedocumented in this encounter Additional Health Concerns Infection Onset Date Last Indicated Resolved Time CoV-Risk 02/10/2024 02/10/2024 02/21/2024 1:22 AM EST RSV 02/10/2024 02/10/2024 02/17/2024 1:25 AM EST documented as of this encounter Care Teams Physical Chemistry Professor Relationship Specialty Start Date End Date Eduardo Rutledge MD [address] [place] [address] PCP - General Internal Medicine 06/19/18 documented as of this encounter Additional Source Comments The information contained in this document represents components of the legal health record. It is not the complete legal health record.[facility]
--- OUTSIDE RECORDS SUMMARY | 2025-01-30 08:01 | XMS_ITS | Clinical Summary ---
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 Assessment & Plan (06/27/2020 12:54 PM EDT): Patient denies any AF related symptoms. He is rate controlled on Coreg 50mg BID and Digoxin 125mcg. Last Dig level 0.9 on 05/02/20. He is appropriately anticoagulated on Warfarin, which is managed by his PCP. His INRs are followed at [facility]. He reports tolerating the warfarin well, and is not interested in changing to a NOAC. Continue current medication regimen and f/u in 1 year. Assessment & Plan (06/16/2020 11:58 AM EDT): -- on coumadin, on coreg 50 bid -- ROLL TUBE SETTER-D, no shocks in past, Bi-V paced approx 60% of time -- followed by Dr. Toledo Assessment & Plan (04/26/2020 3:37 PM EDT): Continue Coreg 50mg BID and Digoxin 125mcg for rate control. Will update digoxin level. Assessment & Plan (06/11/2019 8:21 AM EDT): -- on coumadin, on coreg 50 bid -- ROLL TUBE SETTER-D, no shocks in past, Bi-V paced approx [...] at rest on coreg 50 bid -- ROLL TUBE SETTER-D, no shocks in past, Bi-V paced approx 60% of time -- followed by Dr. Toledo Assessment & Plan (09/16/2017 4:22 PM EDT): Discussed the NOACs He will check his insurance Assessment & Plan (06/20/2017 11:48 AM EDT): -- on coumadin, HR 75 at rest on coreg 50 bid -- ROLL TUBE SETTER-D, no shocks in past Assessment & Plan (02/28/2017 10:09 AM EST): -- on coumadin, HR a bit high today, acute illness needs to be worked up as below -- ROLL TUBE SETTER-D, no shocks in past Assessment & Plan (12/13/2016 8:39 PM EST): -- on coumadin, HR reasonable -- ROLL TUBE SETTER-D, no shocks in past Assessment & Plan (09/12/2016 9:36 AM EDT): Continue current Rx Not interested in NOACs at this time Assessment & Plan (02/15/2016 10:18 AM EST): Continue current Rx Non-ischemic cardiomyopathy 02/15/2016 Overview (02/15/2016): EF 29% - 27% ROLL TUBE SETTER-D [facility] placed 06/20/2013 Medications optimized - [...] out GDMT, likely d/c lasix. -- s/p ROLL TUBE SETTER-D Assessment & Plan (06/11/2019 8:20 AM EDT): [...] if BP room for ACEI. -- s/p ROLL TUBE SETTER-D Assessment & Plan (06/19/2018 9:04 AM EDT): [...] TTE results 09/2018 are known -- s/p ROLL TUBE SETTER-D Assessment & Plan (06/20/2017 11:49 AM EDT): -- NICMP LVEF 27% --> 38% some recovery today! -- etiology not clear, negative w/u to date -- neurohormonal blockade: continue carvedilol and spironolactone at target doses, consider switching carvedilol to toprol so BP can tolerate ACEI. -- s/p ROLL TUBE SETTER-D Assessment & Plan (12/13/2016 8:38 PM EST): -- NICMP LVEF 27% -- etiology not clear, has previously been worked up, will need to review -- neurohormonal blockade: continue carvedilol and spironolactone at target doses -- discussed resuming low dose ACEI today lisinopril 2.5mg - he will monitor BP -- RTC 1 month with BIOINFORMATICS SPECIALIST for BP check and labs given previous low BP on ACEI higher dose (5mg) -- repeat TTE routine to monitor LVEF -- s/p ROLL TUBE SETTER-D Assessment & Plan (09/12/2016 9:36 AM EDT): [...] repeat TTE Cardiac resynchronization th erapy defibrillator (ROLL TUBE SETTER-D) in place 07/25/2015 Overview (06/27/2020): [facility] ROLL TUBE SETTER-D RV and LV placed 06/20/2013 No RA [...] at 33%. He will continue remote transmissions T04tyab with IPDE annually. Assessment & Plan (06/30/2021 5:41 PM EDT): IPDE showed appropriate device function today with BiV pacing 63% and trigger pacing at 37%. Continue remote transmissions S26ubed with IPDE annually. He was previously followed [...] presents to discuss gen change. We discussed ROLL TUBE SETTER-D generator change in length. ?Explained the risks [...] for monthly battery checks. The procedure of ROLL TUBE SETTER-D generator change was explained in detail to the patient. The alternatives and benefits ROLL TUBE SETTER-D generator change were discussed in detail. We [...] (07/25/2015 5:42 PM EDT): [facility] ROLL TUBE SETTER-D implanted for non-ischemic cardiomyopathy, CHF and LBBB [...] become more of an issue interfering with ROLL TUBE SETTER. At this point he would like to continue the current management strategy. Continue digoxin and Coreg. Intermittent diaphragmatic stim discussed. Now resolved. Plan for remote transmission in 3 months followed by in person device check in 6 months. Cardiomyopathy 07/25/2015 Overview (07/25/2015): Cardiomyopathy. Service date: 11/28/2014. Author: Annelise Campoverde NP. Comment: s/p ROLL TUBE SETTER-ICD, on good medical therapy. BiV pacing is [...] NYHA II. Chemistries will be checked at [facility]. Assessment & Plan (09/16/2017 4:21 PM EDT): [...] TTE routine to monitor LVEF -- s/p ROLL TUBE SETTER-D Essential hypertension 07/25/2015 Overview (07/25/2015): Essential hypertension. [...] Plan (02/28/2017 10:09 AM EST): -- s/p ROLL TUBE SETTER-D Ventricular premature beats 07/25/2015 Overview (07/25/2015): Premature ventricular contraction. Service date: 01/16/2014. Author: Marco Toledo MD. Summary: He had frequent outflow tract PVCs on EKG 09/26/2012. In some cases these can contribute to cardiomyopathy. He had a Holter on 09/27/2012 ([facility]) to determine the adequacy of his [...] Encounters Date Type Department Care Team Description 01/29/2025 Telephone [facility] Heart Failure and Transplantation Program at the [facility] [address] [facility], 5th Floor, [address] [place] [address] Molly Fraser RN 12/31/2024 7:45 AM EST - 12/31/2024 11:59 PM EST Hospital Encounter [facility] Cardiology Division [address] [facility], [address] [place] [address] Sumit Toledo MD, PhD Discharge Disposition: Home or Self Care 12/31/2024 Procedure Pass [facility] Cardiology Division [address] [facility], [address] [place] [address] 12/31/2024 Procedure Pass [facility] Cardiology Division [address] [facility], [address] [place] [address] 12/05/2024 10:30 AM EDT - 12/05/2024 11:59 PM EDT Hospital Encounter [facility] Cardiology Division [address] [facility], [address] [place] [address] Sumit Toledo MD, PhD Discharge Disposition: Home or Self Care 12/05/2024 Procedure Pass [facility] Cardiology Division [address] [facility], [address] [place] [address] 12/05/2024 Procedure Pass [facility] Cardiology Division [address] [facility], [address] [place] [address] 11/26/2024 9:00 AM EDT Office Visit [facility] Transplantation Program at the [facility] [address] [facility], 5th Floor, [address] [place] [address] Tal Stanley MD Essential hypertension (Primary Dx); Chronic systolic heart failure; Dilated cardiomyopathy; Ventricular premature beats; Cardiac resynchronization therapy defibrillator (ROLL TUBE SETTER-D) in place 11/26/2024 Orders Only [facility] Noninvasive Cardiology Clinic at the [facility] [address] [facility], 5th Floor, [address] [place] [address] Eduardo Rutledge MD 11/22/2024 Procedure Pass [facility] [address] [facility], [address] [place] [address] 11/22/2024 Procedure Pass [facility] Cardiology Division [address] [facility], [address] [place] [address] 11/21/2024 10:30 AM EDT - 11/21/2024 11:59 PM EDT Hospital Encounter [facility] [address] [facility], [address] [place] [address] Sumit Toledo MD, PhD Discharge Disposition: Home or Self Care 11/09/2024 2:30 PM EDT Office Visit [facility] Cardiology Arrhythmia Service at the [facility] [address] [facility], 5th Floor, [address] [place] [address] Sumit Toledo MD, PhD Permanent atrial fibrillation (Primary Dx); Essential hypertension; Cardiac resynchronization therapy defibrillator (ROLL TUBE SETTER-D) in place; Non-ischemic cardiomyopathy 11/09/2024 1:23 PM EDT - 11/09/2024 11:59 PM EDT Hospital Encounter [facility] [address] [facility], 5th Floor, [address] [place] [address] Sumit Toledo MD, PhD Discharge Disposition: Home or Self Care 11/09/2024 Procedure Pass [facility] Cardiology Division [address] [facility], [address] [place] [address] 11/09/2024 Procedure Pass [facility] [address] [facility], [address] [place] [address] 10/05/2024 Procedure Pass [facility] Cardiology Division [address] [facility], [address] [place] [address] 10/05/2024 Procedure Pass [facility] [address] [facility], 5th Floor, [address] [place] [address] 08/16/2024 Procedure Pass [facility] [address] [facility], [address] [place] [address] 07/09/2024 Procedure Pass [facility] [address] [facility], [address] [place] [address] from Last 3 Months Family History Medical [...] st Contact Info) Description 11/26/2024 Procedure Pass [facility] [address] [place] [address] 02/21/2025 10:30 AM EST Appointment [facility] [address] [facility], [address] [place] [address] Sumit Toledo MD, PhD [address] [facility] [address] [email or web address] 05/20/2025 10:30 AM EDT Appointment [facility] [address] [place] [address] Tal Stanley MD 55 [facility] [place] [address] [place] [phone] [email or web address] 07/12/2025 9:00 AM EDT Appointment [facility] Cardiac EP [address] [facility], 5th Floor, [address] [place] [address] Sumit Toledo MD, PhD [address] [place] [phone] [email or web address] 07/12/2025 9:30 AM EDT Office Visit [facility] Cardiology Arrhythmia Service at the [facility] [address] [facility], 5th Floor, [address] [place] [address] Lisa Mccarthy NP [address] [address] [email or web address] 07/12/2025 11:00 AM EDT Office Visit [facility] Heart Failure and Transplantation Program at the [facility] [address] [facility], 5th Floor, [address] [place] [address] Tal Stanley MD [address] [address] [email or web address] Health Maintenance Due Date Last Done Comments DEPRESSION SCREENING 1960 HEPATITIS C SCREENING 1966 PNEUMOCOCCAL VACCINES (50+ years) (1 of 2 - PCV) 09/18/1967 ZOSTER VACCINES (1 of 2) 1998 POTASSIUM LEVEL 12/28/2022 12/28/2021, 03/07/2020, 07/15/2019, Additional history exists RSV VACCINE (1 - 1-dose 75+ series) 09/18/2023 INFLUENZA VACCINE (#1) 2024 01/02/2018 COVID-19 VACCINE ( - season) 2024 BLOOD PRESSURE 05/27/2025 11/26/2024 Adult [...] this topic Medical Devices Implanted Type Area Master Glazier Device Identifier Shelf Expiration Date Model / Serial / Lot Defibrillator System Support Specialist-D [place] Hf - [id number] Implanted:Qty: 1 on 05/13/2020 by Sumit Toledo MD, PhD at [facility] ICD Left: Chest [employer] 03/09/2022 [id number] / [id number] / Lv Lead-06/20/2013 Implanted: 014 (Quantity not on file) Lead [employer] 1458Q QUARTET / [id number] / Rv Lead-06/20/2013 Implanted: 014 (Quantity not on file) Lead [employer] 7122Q DURATA SJ4 / [id number] / Explanted Type Area Master Glazier Device Identifier Shelf Expiration Date Model / Serial / Lot [facility] Crtd-06/20/2013 Implanted:06/21/19 14 (Quantity not on file) Explanted:Qty: 1 on 05/13/2020 by Sumit Toledo MD, PhD at [facility] ICD [employer] 3365-40Q QUADRA ASSURA / [id number] / Procedures Procedure Name Priority Date/Time Associated Diagnosis Comments EP DEVICE CHECK / FOLLOW UP Routine 12/31/2024 11:29 AM EST Non-ischemic cardiomyopathy Cardiac resynchronization therapy defibrillator (ROLL TUBE SETTER-D) in place DEVICE CHECK: ICD IN-HOME HFM Routine 12/07/2024 7:06 AM EDT Non-ischemic cardiomyopathy Cardiac resynchronization therapy defibrillator (ROLL TUBE SETTER-D) in place ECG 12-LEAD Routine 11/26/2024 8:49 AM EDT Essential hypertension DEVICE CHECK: ICD IN-HOME INTERROGATION Routine 11/21/2024 8:20 PM EDT Non-ischemic cardiomyopathy Cardiac resynchronization therapy defibrillator (ROLL TUBE SETTER-D) in place ECG 12-LEAD Routine 11/09/2024 2:16 PM EDT Essential hypertension DEVICE CHECK: ICD IN-PERSON PROGRAMMING MULTIPLE LEAD Routine 11/09/2024 2:14 PM EDT Non-ischemic cardiomyopathy Cardiac resynchronization therapy defibrillator (ROLL TUBE SETTER-D) in place LIPID PANEL Routine 12/28/2021 2:29 PM EST Lipid screening COMPREHENSIVE METABOLIC PANEL (CMP) Routine 12/28/2021 2:29 PM EST Cardiomyopathy, unspecified type from Last 3 Months or Most Recently Relevant to Health Maintenance Results * DEVICE CHECK: ICD IN-HOME INTERROGATION PLUS HFM IMPEDANCE (12/31/2024 11:29 AM EST) Only the most recent of4 resultswithin the time period is included. Date Time Interrogation Session [id number] [employer] Implantable Pulse Generator Master Glazier [facility] Implantable Pulse Generator Model [id number] [place] [facility] [employer] Implantable Pulse Generator Serial Number [id number] [facility] Type Interrogation Session Remote Scheduled [facility] Re-programmed During Session NO [facility] Clinic Name Arrhythmia Device Clinic [facility] Implantable Pulse Generator Type Cardiac Resynchronization Therapy - Defibrillator [facility] Generator Implant Date [id number] [facility] Implantable Lead Master Glazier [facility] Implantable Lead Model 1458Q Quartet [facility] Implantable Lead Serial Number [id number] [facility] Implantable Lead Implant Date 20130620 [facility] Implantable Lead Polarity Type Quadripolar Lead [facility] Implantable Lead Location Detail 1 UNKNOWN [facility] Implantable Lead Special Function Implant [facility] Implantable Lead Location Left Atrium [facility] Implantable Lead Master Glazier [facility] Implantable Lead Model 7122Q Durata SJ4 [facility] Implantable Lead Serial Number [id number] [facility] Implantable Lead Implant Date 20130620 [facility] Implantable Lead Polarity Type Tripolar Lead [facility] Implantable Lead Special Function Implant [facility] Implantable Lead Location Right Ventricle [facility] Lead Channel Setting Sensing Adaptation Mode Adaptive [facility] Ventricular chambers paced during ROLL TUBE SETTER pacing. BiV [facility] ROLL TUBE SETTER LV-RV Delay 20 ms [facility] [...] Fixed Pacing [facility] Zone Setting Type Category VF [facility] Zone Setting Vendor Type Category VF [facility] Zone Setting Status Active [facility] Zone Setting Detection Interval 300 ms [facility] Zone Setting Type Category VT [facility] Zone Setting Vendor Type Category VT2 [facility] Zone Setting Status Inactive [facility] Zone Setting Type Category VT [facility] Zone Setting Vendor Type Category VT1 [facility] Zone Setting Status Monitor [facility] Zone Setting Detection Interval 350 ms [facility] Lead Channel Status Null [facility] LV Impedance 480 ohm [facility] LV Threshold 0.25 V [facility] LV Threshold PW 1.5 ms [facility] Lead Channel Status Null [facility] RV Impedance 600 ohm [facility] R Wave 6.6 mV [facility] RV Threshold 0.75 V [facility] RV Threshold PW 0.5 ms [facility] Battery Date Time of Measurements [id number] [facility] Battery Status Middle of Service [facility] Battery PRESSURE DISPATCHER Trigger When current voltage < 2.62 volts [facility] Battery Remaining Longevity 42 mo [facility] Battery Remaining Percentage 47.0 % [facility] Battery Voltage 2.93 V [facility] Capacitor Charge Type Reformation [facility] Capacitor Last Charge Date Time [id number] [facility] Capacitor Charge Time 8.9 s [facility] Capacitor Charge Energy 40 J [facility] Statistic Heart Rate Date Time Start + [facility] Statistic Heart Rate Date Time End + [facility] Statistic Ventricular Heart Rate Min 60 {beats} /min [facility] Statistic Ventricular Heart Rate Mean 79 {beats} /min [facility] Statistic Ventricular Heart Rate Max 240 {beats} /min [facility] Richie Statistic Date Time Start + [facility] Richie Statistic Date Time End +0000 [facility] ROLL TUBE SETTER Statistic Date Time Start + [facility] ROLL TUBE SETTER Statistic Date Time End + [facility] ROLL TUBE SETTER Statistic ROLL TUBE SETTER Percent Paced 75.0 % [facility] Atrial Tachy Statistic Date Time Start + [facility] Atrial Tachy Statistic Date Time End +0000 [facility] Therapy Statistic Recent Shocks Delivered 0 [facility] Therapy Statistic Recent Shocks Aborted 0 [facility] Therapy Statistic Recent ATP Delivered 0 [facility] Therapy Statistic Recent Date Time Start + [facility] Therapy Statistic Recent Date Time End +0000 [facility] Episode Statistic Recent Count 1 [facility] Episode Statistic Type Category VT [facility] Episode Statistic Vendor Type Category Non-sustained VT [facility] Episode Statistic Recent Date Time Start +0000 [facility] Episode Statistic Recent Date Time End +0000 [facility] 12/31/2024 2:00 AM EST Narrative [facility] - 12/31/2024 10:55 PM EST [facility] HF diagnostics reviewed. Trend(s) and data suggest a euvolemic status. 1 Non-Sustained Detect 12/22 - EGM suggests SVT/AT with avg rate @ 182 bpm. Follow up: Next HF 01/31. Next Combo 07/12/25. No therapeutic changes are indicated unless notified by your provider. us Sumit Toledo MD, PhD [facility] ORDERA BLES Final Result Performing Organization Address City/[facility]/ZIP Co de Phone Number [facility] [address] [place] [address] * ECG 12-LEAD (11/26/2024 8:49 AM EDT) Only the most recent of2 resultswithin the time period is included. Systolic Blood Pressure [facility] Diastolic Blood Pressure [facility] Ventricular Rate EKG/MIN 72 BPM [facility] Atrial Rate 61 BPM [facility] [place] Interval [facility] QRS Duration 160 ms [facility] QT Interval 436 ms [facility] QTC Interval 477 ms [facility] P [place] [facility] R Wave [place] -88 degrees [facility] T Wave [place] 58 degrees [facility] 11/26/2024 8:49 AM EDT 11/26/2024 12:30 PM EDT Narrative [facility] - 11/26/2024 12:30 PM EDT VENTRICULAR-PACED RHYTHM OCCASIONAL PREMATURE VENTRICULAR COMPLEXES BIVENTRICULAR PACING ABNORMAL ECG WHEN COMPARED WITH ECG OF 09-Nov-2024 14:16, PREMATURE VENTRICULAR COMPLEXES ARE NOW PRESENT VENT. RATE HAS DECREASED by 3 bpm us Tal Stanley MD ECG ORDERABLES Final Result Performing Organization Address City/[facility]/ZIP Co de Phone Number [facility] * Comprehensive metabolic panel (12/28/2021 2:29 PM EST) SODIUM 138 133 - 146 mmol/L [facility] POTASSIUM 4.4 3.3 - 5.1 mmol/L [facility] CHLORIDE 99 96 - 108 mmol/L [facility] CO2 29 21 - 35 mmol/L [facility] BUN 18 6 - 19 mg/dL [facility] CREATININE 1.00 0.5 - 1.5 mg/dL [facility] GLUCOSE 70 70 - 99 mg/dL [facility] ALBUMIN 4.1 3.9 - 4.8 g/dL [facility] TOTAL PROTEIN 7.3 6.5 - 8.0 g/dL [facility] CALCIUM 9.4 8.4 - 10.3 mg/dL [facility] ALKALINE PHOSPHATASE 89 39 - 117 U/L [facility] TOTAL BILIRUBIN 0.8 0.0 - 1.2 mg/dL [facility] AST 22 0 - 37 U/L [facility] ALT 12 0 - 40 U/L [facility] GLOBULIN 3.2 1 - 4.8 g/dL [facility] EGFR 79 >59 mL/min/1.7 3m2 [facility] Comment:Estimated glomerular filtration rate calculated using the CKD-EPI refit equation. ANION GAP 14 10 - 20 mmol/L [facility] Blood 12/28/2021 2:29 PM EST 12/28/2021 2:33 PM EST us Gayle Hogan [facility] LAB BLOOD BKR ORDERABLES Final R esult Performing Organization Address City/State/[facility] Co de Phone Number [address] [address] * (ABNORMAL) Lipid panel (12/28/2021 2:29 PM EST) HDL 38 mg/dL [facility] Comment: Interpretation <40 mg/dL: Low HDL cholesterol (major risk factor for CHD) Greater than or equal to 60 mg/dL: High HDL cholesterol ( negative risk factor for CHD) HDL - cholesterol is affected by a number of factors, e.g. smoking, excerise, hormones, sex and age. CHOLESTEROL 169 0 - 240 mg/dL [facility] TRIGLYCERIDES 200(H) 30 - 160 mg/dL [facility] LDL 91 50 - 129 mg/dL [facility] Comment: LDL levels in terms of risk for coronary heart disease: <100 mg/dL: Optimal 100-129 mg/dL: Near or above optimal 130-159 mg/dL: Borderline high 160-189 mg/dL: High >190 mg/dL: Very High CARDIAC RISK RATIO 4.4 3.4 - 5.0 C [facility] Blood 12/28/2021 2:29 PM EST 12/28/2021 2:32 PM EST us Gayle Hogan [facility] BLOOD BKR ORDERABLES Final R esult [facility] [address] [place] [address] from Last 3 Months or Most Recently Relevant to Health Maintenance Insurance [facility] Member Subscriber Plan / Payer (Ef fective 2015-Present) Name:Lenny Caruso Relation to Subscriber:Self Name:Lenny Caruso Payer ID:[id number] (NAIC) Group ID:[id number] Type:O Address: [facility] [id number] [place] [address] MEDICARE PART A & B [facility] Member Subscriber Plan / Payer (Ef fective 2015-Present) Name:Shady Lenny L Relation to Subscriber:Self Name:Shady Lenny Jason Payer ID:[id number] (NAIC) Group ID:[id number] Type:PPO Address: [address] [place] [address] MEDICARE PART A & B [facility] Member Subscriber Plan / Payer (Ef fective 2015-Present) Name:Lenny Caruso Relation to Subscriber:Self Name:Shady Lenny L Payer ID:[id number] (NAIC) Group ID:[id number] Type:PPO Address: [address] [place] [address] MEDICARE PART A & B [facility] Member Subscriber Plan / Payer (Ef fective 2015-Present) Name:Lenny Caruso Relation to Subscriber:Self Name:Lenny Caruso Payer ID:[id number] (NAIC) Group ID:[id number] Type:PPO Address: [address] [address] MEDICARE PART A & B [facility] Member Subscriber Plan / Payer (Ef fective 2015-Present) Name:Lenny Caruso Relation to Subscriber:Self Name:Lenny Caruso Payer ID:[id number] (NAIC) Group ID:[id number] Type:PPO Address: [address] [place] [address] MEDICARE PART A & B Member Subscriber Plan / Payer (Ef fective 2015-Present) Name:Lenny Caruso Relation to Subscriber:Self Name:Lenny Caruso Payer ID:[id number] (NAIC) Group ID:[id number] Type:O Address: [address] [place] [address] MEDICARE PART A & B [employer] Member Subscriber Plan / Payer (Ef fective 2015-Present) Name:Lenny Caruso Relation to Subscriber:Self Name:Lenny Caruso Payer ID:[id number] (NAIC) Group ID:[id number] Type:PPO Address: [facility] [address] [place] [address] MEDICARE PART A & B [facility] Member Subscriber Plan / Payer (Ef fective 2015-Present) Name:Lenny Caruso Relation to Subscriber:Self Name:Lenny Caruso Payer ID:[id number] (NAIC) Group ID:[id number] Type:PPO Address: [facility] [address] [place] [address] MEDICARE PART A & B [facility] FEDERAL Member Subscriber Plan / Payer (Ef fective 2015-Present) Name:Lenny Caruso Relation to Subscriber:Self Name:Lenny Caruso Payer ID:[id number] (NAIC) Group ID:[id number] Type:O Address: [facility] [address] [place] [address] MEDICARE PART A & B Care Teams Fax Machine Operator Relationship Specialty Start Date End Date Eduardo Rutledge MD [address] [place] [id number] PCP - General Internal Medicine 06/19/18 Additional Source Comments The information contained in this document represents components of the legal health record. It is not the complete legal health record.[facility]
--- OUTSIDE RECORDS SUMMARY | 2025-01-30 08:01 | XMS_ITS | Encounter Summary ---
Author Organization [facility] Address [facility] [address] [address] [place] [address] Phone Care Team Providers Care Gear Shaper Set Up Operator Name Role Phone Eduardo Rutledge MD Primary Care Provid er Encounter Details Date Type Department Care Team (Late st Contact Info) Description 05/19/2020 Procedure Pass [facility] [address] [place] [address], [address] [place] [address] Social History Tobacco Use Types Packs/Day Years [...] st Contact Info) Description 11/26/2024 Procedure Pass [facility] [address] [place] [address] 02/21/2025 10:30 AM EST Appointment [facility] [address] [facility], [address] [place] [address] Sumit Toledo MD, PhD 55 [facility] [place] [address] [email or web address] 05/20/2025 10:30 AM EDT Appointment [facility] [address] [place] [address] Tal Stanley MD [address] [address] [email or web address] 07/12/2025 9:00 AM EDT Appointment [facility] [address] [facility], 5th Floor, [address] [place] [address] Sumit Toledo MD, PhD 55 [facility] [place] [address] [email or web address] 07/12/2025 9:30 AM EDT Office Visit [facility] Cardiology Arrhythmia Service at the [facility] [address] [facility], 5th Floor, [address] [place] [address] Lisa Mccarthy NP [address] [address] [email or web address] 07/12/2025 11:00 AM EDT Office Visit [facility] Heart Failure and Transplantation Program at the [facility] [address] [facility], 5th Floor, [address] [place] [address] Tal Stanley MD [address] [address] [email or web address] documented as of this encounter Visit Diagnoses Not on filedocumented in this encounter Additional Health Concerns Infection Onset Date Last Indicated Resolved Time CoV-Risk 02/10/2024 02/10/2024 02/21/2024 1:22 AM EST RSV 02/10/2024 02/10/2024 02/17/2024 1:25 AM EST documented as of this encounter Care Teams Gear Shaper Set Up Operator Relationship Specialty Start Date End Date Eduardo Rutledge MD [address] [place] [id number] PCP - General Internal Medicine 06/19/18 documented as of this encounter Additional Source Comments The information contained in this document represents components of the legal health record. It is not the complete legal health record.[facility]
--- OUTSIDE RECORDS SUMMARY | 2025-01-30 08:01 | XMS_ITS | Encounter Summary ---
Author Organization [facility] Address [facility] [address] [place] [address] Phone Care Team Providers Care Journal Clerk Name Role Phone Eduardo Rutledge MD Primary Care Provid er Encounter Details Date Type Department Care Team (Late st Contact Info) Description 12/07/2023 Procedure Pass [facility] [address] [place] [address], [address] [place] [address] Social History Tobacco Use Types Packs/Day Years [...] st Contact Info) Description 11/26/2024 Procedure Pass [facility] [address] [place] [address] 02/21/2025 10:30 AM EST Appointment [facility] 55 [facility], [address] [place] [address] Sumit Toledo MD, PhD 55 [facility] [place] [address] [email or web address] 05/20/2025 10:30 AM EDT Appointment [facility] [facility] [address] [place] [address] Tal Stanley MD [address] [address] [email or web address] 07/12/2025 9:00 AM EDT Appointment [facility] Cardiac EP [address] [facility], 5th Floor, [address] [place] [address] Sumit Toledo MD, PhD 55 [facility] [place] [address] [email or web address] 07/12/2025 9:30 AM EDT Office Visit [facility] Cardiology Arrhythmia Service at the [facility] [address] [facility], 5th Floor, [address] [place] [address] Lisa Mccarthy NP [address] [address] [email or web address] 07/12/2025 11:00 AM EDT Office Visit [facility] Heart Failure and Transplantation Program at the [facility] [place] [address] [facility], 5th Floor, [address] [place] [address] Tal Stanley MD [address] [facility] [address] [place] [address] [email or web address] documented as of this encounter Visit Diagnoses Not on filedocumented in this encounter Additional Health Concerns Infection Onset Date Last Indicated Resolved Time CoV-Risk 02/10/2024 02/10/2024 02/21/2024 1:22 AM EST RSV 02/10/2024 02/10/2024 02/17/2024 1:25 AM EST documented as of this encounter Care Teams Journal Clerk Relationship Specialty Start Date End Date Eduardo Rutledge MD [address] [place] [id number] PCP - General Internal Medicine 06/19/18 documented as of this encounter Additional Source Comments The information contained in this document represents components of the legal health record. It is not the complete legal health record.[facility]
[2025-01-30 08:09] LABS: MANUAL DIFF FLAG NO
[2025-01-30 09:01] LABS: Hematocrit 45.3 % (42.0-52.0); Hemoglobin 15.1 g/dl (14.0-18.0); Imm Gran Abs Auto 0.02 X10*3/uL (0.00-0.03); Imm Gran Pct Auto 0.3 % (0.0-0.4); Lymphocytes Absolute Auto 1.6 X10*3/uL (1.2-4.9); Mean Corpuscular HGB Conc 33.3 g/dl (31.0-36.0); Mean Corpuscular Hemoglobin 32.2 pg (27.0-33.0); Mean Corpuscular Volume 96.6 fL (80.0-98.0); NRBC Abs Auto 0.000 X10*3/uL (0.0-0.012); NRBC Pct Auto 0.0 /100WBC (0.0-0.2); Platelet Count 277 X10*3/uL (160-400); Red Blood Count 4.69 X10*6/uL (4.60-5.80); White Blood Count 6.7 X10*3/uL (4.8-10.8)
[2025-01-30 09:27] LABS: Alanine Aminotransferase 12 U/L (0-40); Albumin Level 3.9 g/dL (3.5-5.0); Alkaline Phosphatase 82 U/L (39-117); Anion Gap 10 (12-20); Aspartate Amino Transferase 23 U/L (5-37); Blood Urea Nitrogen 22 mg/dL (9-16); Calcium 9.2 mg/dL (8.4-10.2); Carbon Dioxide 28 mmol/L (22-29); Chloride 104 mmol/L (96-108); Estimated Glomerular Filt Rate > 60; Potassium 4.1 mmol/L (3.3-5.1); Sodium 138 mmol/L (135-145); Total Protein 6.9 g/dL (6.5-8.0)
[2025-01-30 09:33] LABS: Digoxin 1.1 ng/mL (0.8-2.0)
[2025-01-30 09:34] LABS: NT Pro B Type Natriuretic Pept 1824.2 pg/mL (<300)
== END 2025-01-30 07:52 | disposition home or self-care (01) ==
LOC: HO.LAB 07:51
PROVIDERS: PCP Internal Medicine; Visit Provider Nurse Practitioner Adult Health
DX: Z51.81 Encounter for therapeutic drug level monitoring (principal); I50.22 Chronic systolic (congestive) heart failure
CPT/HCPCS: 36415; 80053; 80162; 83880; 85025